=== PATIENT | female | born 1995 | race Caucasian/White ===

== ENCOUNTER 2019-05-10 23:31 | Inpatient (IN) | payer BC, SELFPAY ==
[2019-05-11] VITALS (243 sets, daily range): BP systolic 75–144; BP diastolic 32–117; PULSE 67–171; RESP 14; TEMP 36.1–37.2; O2SAT 92–100; BMI 30.6
[2019-05-11 00:34] LABS: Basophils Percent Auto 0.1 % (0.2-1.2); Eosinophils Percent Auto 0.1 % (0-4.4); Hematocrit 37.8 % (37.0-47.0); Hemoglobin 12.3 g/dL (12.0-15.0); Immature Granulocyte Absolute 0.08 K/mm3 (0.00-0.031); Immature Granulocyte Percent A 0.5 % (0-0.5); Lymphocytes Absolute Auto 1.12 K/mm3 (0.9-3.2); Lymphocytes Percent Auto 7.6 % (18.3-44.2); Mean Corpuscular HGB Conc 32.5 g/dl (32-36); Mean Corpuscular Hemoglobin 27.6 pg (26-34); Mean Corpuscular Volume 84.8 fl (80-100); Mean Platelet Volume 11.2 fl (7.4-10.4); Monocytes Absolute Auto 0.5 K/mm3 (0.1-0.6); Monocytes Percent Auto 3.5 % (2.6-8.5); Neutrophils Percent Auto 88.2 % (45.5-73.1); Platelet Count Result 228 k/mm3 (150-375); Red Blood Count 4.46 M/mm3 (4.2-5.4); Red Cell Distribution Width 17.3 % (11.5-14.5); White Blood Count 14.8 K/mm3 (4.5-10.0)
[2019-05-11] MEDS: LACTATED RINGERS 1,000 ML 125 ML IV CONT ×4 (00:54→07:04)
--- NOTE | 2019-05-11 01:51 | WPDANESEPPF ---
Anes - Initial Pre Proc Eval Date/Time: 05/11/19 01:51 Surgeon: Rosio Edwards MD Pre Op Diagnosis: contractions Patient Data Age: 24 Gender: F Height: 5 ft 2 in Weight: 76 kg Last Vital Signs Pulse 122 H 05/11/19 01:50 BP 96/50 L 05/11/19 01:50 Pulse Ox 98 05/11/19 01:48 Laboratory Tests 05/11/19 05/11/19 05/11/19 00:18 00:18 00:18 WBC 14.8 K/mm3 H K/mm3 (4.5-10.0) RBC 4.46 M/mm3 M/mm3 (4.2-5.4) Hgb 12.3 g/dL g/dL (12.0-15.0) Hct 37.8 % % (37.0-47.0) MCV 84.8 fl fl (80-100) MCH 27.6 pg pg (26-34) MCHC 32.5 g/dl g/dl (32-36) RDW 17.3 % H % (11.5-14.5) Plt Count 228 k/mm3 k/mm3 (150-375) MPV 11.2 fl H fl (7.4-10.4) Immature Gran % (Auto) 0.5 % % (0-0.5) Neut % (Auto) 88.2 % H % (45.5-73.1) Lymph % (Auto) 7.6 % L % (18.3-44.2) [place] % (Auto) 3.5 % % (2.6-8.5) Eos % (Auto) 0.1 % % (0-4.4) Baso % (Auto) 0.1 % L % (0.2-1.2) Lymph # (Auto) 1.12 K/mm3 K/mm3 (0.9-3.2) [place] # (Auto) 0.5 K/mm3 K/mm3 (0.1-0.6) Eos # (Auto) 0.0 K/mm3 K/mm3 (0-0.3) Baso # (Auto) 0.0 K/mm3 K/mm3 (0.0-0.1) Abs Immat Gran (auto) 0.08 K/mm3 H K/mm3 (0.00-0.031) Absolute Neuts (auto) 13.0 K/mm3 H K/mm3 (1.3-6.7) Absolute Nucleated RBC 0.0 K/mm3 K/mm3 (0.0-0.012) Nucleated RBC % 0.0 % % (0.0-0.2) RPR Pending Blood Type A Positive Antibody Screen Negative Patient hx anesthesia problems: none Family hx anesthesia problems: none PMFSH Social History Social History Smoking status: Never smoker Second hand tobacco smoke exposure: No Substance use: current Last use: 05/10/19 Gender identity (if verbalized by the patient): Female Spiritual care concerns: No Anes - Eval Final PreProcedure Day of Procedure 05/11/19 01:51 Patient weight: obese Neurological: alert and oriented ASA classification: II Emergent: no Anesthetic plan: proceed Anesthesia type and monitoring: regional epidural and standard monitoring Informed Consent: The patient's anesthetic plan and its attendant risks and benefits were discussed with the patient/family/POA. Questions were solicited and answers provided to the satisfaction of the patient/family/POA.
[2019-05-11] MEDS: PHENYLEPHRINE 1,000 MCG/10 ML SYRINGE 100 MCG IV PUSH ×2 (02:23→02:31)
[2019-05-11] MEDS: ePHEDrine sulfate INJ 50 MG/ML AMPUL 10 MG IV PUSH (03:09)
[2019-05-11] MEDS: OXYTOCIN 30 UNITS/NS 500 ML 30 UNITS/500 ML BAG IV CONT (03:32)
[2019-05-11] MEDS: ONDANSETRON INJ 4 MG/2 ML VIAL IV PUSH (05:07)
--- NOTE | 2019-05-11 07:06 | PM.IMHP ---
H&P: HPI History of Present Illness Chief complaint: contractions Narrative: Janene Joshua is a 24yo @ 40.3wks who presented overnight with complaints of painful, regular contractions since the prior afternoon every 2-3 minutes. She denied leakage of fluid, bleeding, fever, chills, CP, SOB. She endorsed good movement. Review of Systems Constitutional: Constitutional: Denies body ache(s) and Denies chills Eyes: Eyes: Denies blurry vision ENT: Denies nasal congestion Cardiovascular: Cardiovascular: Denies chest pain and Denies palpitations Respiratory: Respiratory: Denies cough and Denies dyspnea Gastrointestinal: Gastrointestinal: Reports abdominal pain Genitourinary: Genitourinary: Denies dysuria Neurologic: Denies confusion and Denies headache(s) Psychiatric: Psychiatric: Reports anxiety PMFSH Social History Social History Smoking status: Never smoker Second hand tobacco smoke exposure: No Substance use: current Last use: 05/10/19 Gender identity (if verbalized by the patient): Female Spiritual care concerns: No Meds Vital Signs Vital Signs - 24 hr 05/11/19 01:27 05/11/19 01:31 05/11/19 01:32 Temperature Pulse Rate 94 Blood Pressure 128/68 Pulse Oximetry 92 98 05/11/19 01:35 05/11/19 01:37 05/11/19 01:38 Temperature Pulse Rate 88 97 Blood Pressure 122/66 130/84 Pulse Oximetry 99 98 05/11/19 01:40 05/11/19 01:42 05/11/19 01:43 Temperature Pulse Rate 91 106 H Blood Pressure 127/66 118/73 Pulse Oximetry 98 05/11/19 01:45 05/11/19 01:47 05/11/19 01:48 Temperature Pulse Rate 110 H 117 H Blood Pressure 111/65 100/46 L Pulse Oximetry 98 05/11/19 01:50 05/11/19 01:52 05/11/19 01:53 Temperature Pulse Rate 122 H 121 H Blood Pressure 96/50 L 109/60 Pulse Oximetry 98 05/11/19 01:55 05/11/19 01:57 05/11/19 01:58 Temperature Pulse Rate 113 H 101 H Blood Pressure 90/55 L 109/60 Pulse Oximetry 99 05/11/19 02:00 05/11/19 02:02 05/11/19 02:03 Temperature Pulse Rate 101 H 111 H Blood Pressure 108/61 92/45 L Pulse Oximetry 96 05/11/19 02:05 05/11/19 02:07 05/11/19 02:08 Temperature Pulse Rate 97 107 H Blood Pressure 111/65 101/55 L Pulse Oximetry 98 05/11/19 02:10 05/11/19 02:12 05/11/19 02:13 Temperature Pulse Rate 99 106 H Blood Pressure 114/64 116/68 Pulse Oximetry 97 05/11/19 02:15 05/11/19 02:17 05/11/19 02:18 Temperature Pulse Rate 89 109 H Blood Pressure 115/43 L 93/55 L Pulse Oximetry 98 05/11/19 02:20 05/11/19 02:21 05/11/19 02:22 Temperature Pulse Rate 100 99 Blood Pressure 84/34 L 83/32 L Pulse Oximetry 98 05/11/19 02:25 05/11/19 02:27 05/11/19 02:30 Temperature 36.8 C Pulse Rate 67 87 98 Blood Pressure 91/42 L 92/44 L 94/40 L Pulse Oximetry 97 05/11/19 02:32 05/11/19 02:35 05/11/19 02:40 Temperature Pulse Rate 81 Blood Pressure 98/40 L Pulse Oximetry 99 97 98 05/11/19 02:45 05/11/19 02:50 05/11/19 02:55 Temperature Pulse Rate 82 Blood Pressure 92/39 L Pulse Oximetry 99 100 98 05/11/19 03:00 05/11/19 03:05 05/11/19 03:10 Temperature Pulse Rate 89 Blood Pressure 75/36 L Pulse Oximetry 100 100 100 05/11/19 03:15 05/11/19 03:20 05/11/19 03:25 Temperature Pulse Rate Blood Pressure Pulse Oximetry 100 100 100 05/11/19 03:30 05/11/19 03:35 05/11/19 03:40 Temperature Pulse Rate 96 Blood Pressure 95/47 L Pulse Oximetry 98 100 96 05/11/19 03:45 05/11/19 03:50 05/11/19 03:55 Temperature Pulse Rate Blood Pressure Pulse Oximetry 99 98 97 05/11/19 04:00 05/11/19 04:05 05/11/19 04:10 Temperature Pulse Rate 86 Blood Pressure 112/67 Pulse Oximetry 97 98 98 05/11/19 04:15 05/11/19 04:20 05/11/19 04:25 Temperature Pulse Rate Blood Pressure Pulse Oximetry 98 100 100
[2019-05-11 07:27] LABS: Amphetamine Screen Urine Negative (Negative); Barbiturate Screen Urine Negative (Negative); Benzodiazepines Screen Urine Negative (Negative); Cannabinoid Screen Urine Positive (Negative); Cocaine Screen Urine Negative (Negative); Methadone Screen Urine Negative (Negative); Opiate Screen Urine Negative (Negative); Phencyclidine Screen Urine Negative (Negative)
[2019-05-11 07:35] LABS: Rapid Plasma Reagin Non-Reactive (NonReactive)
--- NOTE | 2019-05-11 16:56 | PM.OBPRVD ---
OB - Delivery Note Procedure Delivery date: 05/11/19 Procedure: Janene progressed to complete dilation and pushed for ~2 hours in total due to asynclytism. She was noted to have decels therefore multiple position changes and breaks were performed to allow for tolerance. RML episiotomy was performed due to decels to help allow for faster delivery of the head due to a tight vaginal band. After delivery of the head, a nuchal cord was palpated and reduced. The shoulders and body delivered without complications. She had a male who was immediately placed skin to skin. The infant had immediate cry and was stimulated and suctioned. The cord was clamped and cut. With pitocin running and gentle traction on the cord, the placenta delivered without complications. The fundus was noted to be firm with minimal bleeding. The cervix, vagina, and perineum were examined. She was not tolerating the exam so 100mcg of fenantyl and 10cc of local lidocaine were given. A right sulcal laceration was noted in addition to the right mediolateral episiotomy. It was repaired in the normal fashion using 2-0 Vicryl suture. Good hemostasis was noted and the fundus was firm. Rectal sphincter was intact with good tone. The mother and baby were left bonding skin to skin in a stable condition in the birthing suite. Intrapartal events: Prolonged Active Phase and Intolerance Delivery augmentation: rupture of membranes (thick meconium ) and pitocin Delivery monitor: external FHT and internal uterine Route of delivery: Indication for instrumentation: nonreassuring FHR tracing Episiotomy description: Right Mediolateral Laceration description: Vaginal - 2nd Degree (right sulcal ) Delivery repair: vicryl Estimated blood loss (mL): 400 Anesthesia type: Epidural Disposition: floor Baby Date of : 05/11/19 Time of : 16:33 Weeks of gestation at delivery: 40 Infant gender: Male Weight (pounds): 7 Weight (ounces): 10 presentation: vertex position: Right Occiput Anterior Placenta delivery description: Expressed cord vessel description: 3 Vessels and Nuchal Cord (reduced) score one minute: 8 score five minutes: 9
[2019-05-11] MEDS: OXYTOCIN 30 UNITS/NS 500 ML 30 UNITS/500 ML BAG 125 UNITS IV CONT (17:04)
[2019-05-11] MEDS: IBUPROFEN 600 MG TABLET PO (19:52)
[2019-05-11] MEDS: LANOLIN (LANSINOH) 7.5 GM CREAM 1 APPLIC TOPICAL (19:53)
[2019-05-12 05:42] LABS: Hematocrit 27.6 % (37.0-47.0); Hemoglobin 8.8 g/dL (12.0-15.0)
[2019-05-12 08:05] VITALS: BP 107/66; PULSE 110; RESP 18; TEMP 37.3; O2SAT 98
[2019-05-12] MEDS: POLYSACCHARIDE IRON COMPLEX 150 MG CAPSULE PO ×2 (08:16→17:14)
[2019-05-12] MEDS: IBUPROFEN 600 MG TABLET PO ×2 (08:16→17:18)
[2019-05-12] MEDS: MULTIVIT/MIN/PREN/FOL AC/IRON TABLET 1 TAB PO (08:16)
[2019-05-12] MEDS: DOCUSATE SODIUM 100 MG CAPSULE PO ×2 (08:16→17:14)
--- NOTE | 2019-05-12 08:45 | PC.NURSE ---
Consulted with patient, mother called for assist with latch. Mother is attempting with no successful latch. Mother has been given a nipple shield and is attempting without. Suggested use of shield to obtain deep latch. Discussed nipple shield precautions,possible complications, need to continue pumping to stimulate milk supply. Instructions given on application and cleaning of shield. Patient verbalizes understanding. Reviewed feeding cues, frequencies/durations of feeding, milk production, feeding/elimination flow sheet and signs of adequate intake. Demonstrated stimulation techniques to wake infant for feeding. Assisted with infant to breast. Reviewed positioning/alignment in cross cradle, holding breast in U hold and guided asymmetrical latch on. Discussed rational for each. Infant was able to latch correctly with shield in place. Infant nursed eagerly with steady draws and occasional swallowing , for short bursts followed with long pausing. Reviewed signs of a correct latch, effective nursing and suck swallow ratio. Both are able to maintain latch without discomfort to mother. Advised to stimulate to keep awake and nursing effectively, for increased stimulation and intake. Nipple care reviewed. Instructed mother to call out for RN assistance if she is unable to latch infant for feeding or she has discomfort with nursing. Instructed feeding should be initiated three hours from start of last feeding or if feeding cues are noted before. Mother voiced understanding of information shared.
[2019-05-12] MEDS: ACETAMINOPHEN 325 MG TABLET 650 MG PO (10:54)
--- NOTE | 2019-05-12 12:30 | PC.NURSE ---
Mother called out for assist with feeding. Reviewed positioning/alignment in cross cradle, holding breast in U hold and guided asymmetrical latch on. Discussed rational for each. was able to latch correctly with shield in place. Infant nursed eagerly with steady draws and occasional swallowing , for short bursts followed with long pausing. Reviewed signs of a correct latch, effective nursing and suck swallow ratio. Both are able to maintain latch without discomfort to mother. Advised to stimulate to keep awake and nursing effectively, for increased stimulation and intake. Nipple care reviewed. Instructed mother to call out for RN assistance if she is unable to latch for feeding or she has discomfort with nursing. Instructed feeding should be initiated three hours from start of last feeding or if feeding cues are noted before. Mother voiced understanding of information shared.
--- NOTE | 2019-05-12 13:40 | PC.NURSE ---
Breast pump provided due to nipple shield use/ineffective feeding. Instructions given on breast pump care and usage, pumping schedule, nipple care, and collection and storage of breast milk. Encouraged [id number], breast massage and manual expression to stimulate supply. Assessed patient for correct flange size, placement and draw. Patient verbalizes and demonstrates understanding of instructions.
--- NOTE | 2019-05-12 15:03 | P.PNOB_ITS ---
OB - PN: Subj Subjective Date/time seen: 05/12/19 15:03 Janene is a 24yo now P1001 s/p @ 40.3wks on 05/11/19, PPD#1 Today, she is doing well. She reports her pain is controlled with the medications and ice packs. She is ambulating with mild dizziness. She reports a mild spinal DUNCAN. She is tolerating regular diet w/o N/V. She is voiding and passing flatus. Her lochia is decreasing. She is breast feeding/pumping, some bottle feeding. She desires a circumcision for her son. OB - PN: Obj Data Labs CBC & Chem 7: 05/12/19 05:00 Labs: Laboratory Results - last 24 hr 05/12/19 05:00 Hgb 8.8 L D Hct 27.6 L OB - PN A/P Assessment and Plan (1) Normal vaginal delivery: Code(s): O80 - Encounter for full-term uncomplicated delivery Status: Acute (2) Acute postoperative anemia due to expected blood loss: Code(s): D62 - Acute posthemorrhagic anemia Status: Acute Plan day: 1 Plan: routine care and discharge home (tomorrow on PPD#2) Comments: - Meeting all milestones, discharge home tomorrow. - Iron BID due to anemia - Will start Zoloft for h/o depression and anxiety (has med at home but hadn't started taking it yet) - Anesthesia consult for DUNCAN; encouraged increased caffeine intake - S/p circumcision for son - Discharge counseling: ER return precautions discussed with patient. Take medications as prescribed. Pelvic rest, no heavy lifting. Social distancing for herself and baby. F/u in clinic in 4 weeks. Time Spent With Patient Time: Total time spent is greater than 50% in coordination of care (as documented) at patient's floor/unit and/or counseling patient: Review of Systems Constitutional: Constitutional: Denies body ache(s) and Denies chills Cardiovascular: Cardiovascular: Denies rapid heart rate Respiratory: Respiratory: Denies no additional respiratory complaints, Denies cough and Denies dyspnea Gastrointestinal: Gastrointestinal: Denies constipation, Denies nausea and Denies vomiting Genitourinary: Genitourinary: Reports pelvic pain Neurologic: Reports headache(s) Exam Const: General: comfortable, no acute distress, alert and awake Resp: Effort & Inspection: normal respiratory effort Auscultation: clear to auscultation bilaterally Cardio: Rate: regular rate GI: Auscultation: normal bowel sounds Other: soft, non-distended, non- tender, fundus firm below umbilicus Psych: Appearance: grossly normal Affect: Indifferent affect present Attitude: cooperative Judgement: Good judgement present (Psych)
[2019-05-12] MEDS: SERTRALINE HCL 50 MG TABLET PO (17:15)
[2019-05-12 19:40] VITALS: BP 109/70; PULSE 95; RESP 14; TEMP 36.8; O2SAT 100
--- NOTE | 2019-05-12 21:32 | PC.NURSE ---
Patient viewed the discharge video Mother & Baby Care, The First Two Weeks . Patient was given the opportunity and encouraged to ask questions. Patient verbalized understanding of information shared and has been given the mother/baby guide for home reference.
[2019-05-13 08:00] VITALS: BP 108/67; PULSE 98; RESP 16; TEMP 37.7; O2SAT 99
[2019-05-13] MEDS: POLYSACCHARIDE IRON COMPLEX 150 MG CAPSULE PO (08:31)
[2019-05-13] MEDS: IBUPROFEN 600 MG TABLET PO (08:31)
[2019-05-13] MEDS: WITCH HAZEL 40 PADS 1 PAD TOPICAL (08:32)
[2019-05-13] MEDS: DOCUSATE SODIUM 100 MG CAPSULE PO (08:32)
[2019-05-13] MEDS: MULTIVIT/MIN/PREN/FOL AC/IRON TABLET 1 TAB PO (08:32)
--- NOTE | 2019-05-13 09:45 | PC.NURSE ---
Mother is able to independently latch infant with appropriate positioning/alignment, using nipple shield. She denies any nipple discomfort, is feeding as required and waking infant to feed if needed. Mother continues to supplement after all feedings due to feeding issues. Mother continues to pump without difficulties or discomfort, she has a pump for home use. Infant is bottle feeding without issue and has had at least 8 feedings in the past 24 hours, and is currently meeting outcomes for weight, output, jaundice and feeding frequencies. Mother states she feels confident to continue current feeding plan at home. Discussed how and when to wean from bottle feeding. Reviewed transition to breast milk, signs of adequate intake, and engorgement/relief. Instructed to call ICP if intake/output less than required. Reviewed regular medications mother is taking. Information provided per Gracia. Reviewed community resources on the [facility] website and in the Mom/Baby guide. Information on outpatient services provided. Mother has no further questions at this time.
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
--- NOTE | 2019-05-31 07:27 | PM.OBDSVD ---
DS: Diagnosis Admitting Diagnosis Admitting Diagnosis: Encounter for supervision of normal , unspecified, third trimester Discharge Diagnosis (1) Uterine contractions during : Code(s): O62.2 - Other uterine inertia Status: Acute OB - DS: Summary OB Procedures : None OB Procedures Intrapartum: Episiotomy OB Procedures: : None Peripartum Data Delivery Method: Natural Vaginal Laceration description: Perineal - 2nd Degree Episiotomy description: Right Mediolateral complications: none 1: Gender: Male Disposition of : home Status at Discharge Functional status at discharge: independent ambulation Overall status at discharge: patient is back to baseline Time Spent with Patient Time attestation: Total time spent providing and/or coordinating discharge services: Exam Const: General: comfortable and no acute distress Resp: Effort & Inspection: normal respiratory effort Cardio: Rate: regular rate GI: GI Palp: Yes Soft to palpation Auscultation: normal bowel sounds : Other: fundus firm below umbilicus Psych: Appearance: grossly normal Attitude: cooperative Thought content: Yes Normal thought content present DS: Data Data Completed and Pending Completed studies during hospitalization: Pending at discharge 05/11/19 16:35 Surgical [PTH] Routine Discharge Plan Discharge Attending physician on discharge: Rosio Edwards Consulting providers: Will Tirado Discharging Clinician: Rosio Edwards Anticipated Discharge Date/Time: 05/13/19 13:00 Patient Disposition: Home, Self-Care Activity: pelvic rest Diet: regular Discharge Instructions: Education: Mom and Baby Guide Given to: Mother Follow-Up: Call your delivering provider's office for an appointment to be seen in: 6 Weeks Mom and baby should come to the [facility] for the follow-up appointment. Appointment Date/Time: May 16, 2019 at 11:00 am What to expect at your follow-up visit: Physical Assessment Call [phone] if you are unable to keep your appointment time. BREAST CARE: 1. Wear a snug supportive bra. 2. For engorgement discomfort: Breast Feeding: A. Apply warm moist washcloths B. Express milk as needed to relieve engorgement C. Wear loose clothing 3. For sore nipples: A. Identify correct latch-on B. Apply warm moist washcloths before and after nursing C. Air dry nipples after nursing D. May apply Lansinoh cream to nipples EPISIOTOMY/PERINEAL CARE: 1. Until bleeding stops, use your renée bottle after urinating 2. Change your pad frequently throughout the day 3. You may take sitz baths several times a day (fill your bathtub with warm water and soak for 20 minutes.) Do NOT bathe in the water 4. No tub baths until seen by your physician - You may shower ACTIVITY: 1. Rest as much as possible. 2. Do not exercise or lift anything heavier than your baby (such as laundry or other children.) 3. Avoid stairs or driving as much as possible. 4. Do not put anything into the vagina. No douching, tampons, or sexual activity until seen by physician. NOTIFY PHYSICIAN IF YOU HAVE ANY QUESTIONS OR IF ANY OF THE FOLLOWING SYMPTOMS OCCUR: 1. If your episiotomy or incision becomes red, swollen, or more painful than what you have experienced in the hospital. 2. If your vaginal bleeding becomes foul smelling. 3. If your vaginal bleeding becomes more heavy than a period or if your bleeding changes from pink to bright red. However, you may pass an occasional walnut-sized clot once or twice for the first week . 4. If you experience a sharp, shooting pain in you calves. 5. If you discover a hard, reddened area on your breast or if you experience flu-like symptoms. DIET: 1. Eat regular, well-balanced meals. 2. Drink plen
== END 2019-05-13 15:22 | disposition home or self-care (01) | DRG 560 ==
LOC: ANHLDR 23:59 → ANHOB2 05-11 20:03
PROVIDERS: Admitting Provider Obstetrics & Gynecology; Visit Provider Obstetrics & Gynecology
DX: O62.2 Other uterine inertia (principal); Z37.0 Single live birth; Z3A.40 40 weeks gestation of pregnancy; O69.81X0 Labor and delivery complicated by cord around neck, without compression, not applicable or unspecified; O36.8330 Maternal care for abnormalities of the fetal heart rate or rhythm, third trimester, not applicable or unspecified; O63.0 Prolonged first stage (of labor); O77.0 Labor and delivery complicated by meconium in amniotic fluid; O70.1 Second degree perineal laceration during delivery; O89.4 Spinal and epidural anesthesia-induced headache during the puerperium; O90.81 Anemia of the puerperium; D62 Acute posthemorrhagic anemia; O99.344 Other mental disorders complicating childbirth; F41.8 Other specified anxiety disorders; O99.214 Obesity complicating childbirth; E66.9 Obesity, unspecified
CPT/HCPCS: 36415; 80307; 85014; 85018; 85025; 86592; 86850; 86900; 86901; 88307; A9270; J2370; J2405; J2590; J2795; J3010; J3105; J7120

== ENCOUNTER 2020-06-20 12:15 | Outpatient (CLI) | payer BC, SELFPAY ==
[2020-06-20 12:34] VITALS: BP 132/74; PULSE 100
[2020-06-20 13:00] VITALS: BP 122/76; PULSE 99
[2020-06-20 13:05] LABS: Add Urine Microscopic? YES; Appearance Urine Cloudy (Clear); Bacteria Urine Trace /hpf; Bilirubin Urine Negative (Negative); Blood Urine Negative (Negative); Color Urine Yellow (Yellow); Glucose Urine UA Negative (Negative); Ketones Urine Trace mg/dL (Negative); Leukocyte Esterase Ur 3+ LEU/UL (Negative); Mucus Urine Few /lpf; Nitrate Urine Negative (Negative); Protein Urine 1+ mg/dL (Negative); Specific Grav Ur 1.018 (1.001-1.035); Squamous Epithelial Cell Urine Many /hpf (Few); Urobilinogen Urine Negative mg/dL (<2.0); WBC Urine 21-30 /hpf
[2020-06-20 13:25] VITALS: BP 122/76; PULSE 99
== END 2020-06-20 13:30 | disposition home or self-care (01) ==
LOC: ANHOBOP 12:19 → ANHOBPP 12:20
PROVIDERS: Visit Provider Obstetrics & Gynecology
DX: O41.93X0 Disorder of amniotic fluid and membranes, unspecified, third trimester, not applicable or unspecified (principal); Z3A.35 35 weeks gestation of pregnancy
CPT/HCPCS: 59025; 81001; 84112; 87086; 87088; 99199

== ENCOUNTER 2020-07-24 05:46 | Inpatient (IN) | payer BC, SELFPAY ==
[2020-07-24] VITALS (63 sets, daily range): BP systolic 86–139; BP diastolic 25–93; PULSE 60–121; RESP 16–20; TEMP 36.4–36.9; O2SAT 97–100; BMI 33.5
--- NOTE | 2020-07-24 05:46 | LDADM ---
This patient, Janene Joshua, was admitted to Labor/Delivery/Recovery 102 on 07/24/20 at 05:46. Plans for labor, pain management and were discussed with patient. Patient/family oriented to hospital policies and general routines including ID bracelet, bed and alarms, visiting hours, pain management, procedures, bathroom and other care routines, personal items, smoking policy, room service/diet and guest tray routines, security routines, and visiting hours. Patient/Family are encouraged to report perceived risks to care and to ask questions if they do not understand what they are told or what they should do. See OBIX for further documentation.
[2020-07-24 06:38] LABS: Basophils Percent Auto 0.2 % (0.2-1.2); Eosinophils Absolute Auto 0.1 K/mm3 (0-0.3); Eosinophils Percent Auto 0.5 % (0-4.4); Hematocrit 41.8 % (37.0-47.0); Hemoglobin 13.2 g/dL (12.0-15.0); Immature Granulocyte Absolute 0.04 K/mm3 (0.00-0.031); Immature Granulocyte Percent A 0.4 % (0-0.5); Lymphocytes Absolute Auto 1.62 K/mm3 (0.9-3.2); Lymphocytes Percent Auto 16.7 % (18.3-44.2); Mean Corpuscular HGB Conc 31.6 g/dl (32-36); Mean Corpuscular Hemoglobin 25.9 pg (26-34); Mean Corpuscular Volume 82.1 fl (80-100); Mean Platelet Volume 11.2 fl (7.4-10.4); Monocytes Absolute Auto 0.6 K/mm3 (0.1-0.6); Monocytes Percent Auto 5.7 % (2.6-8.5); Neutrophils Absolute Auto 7.4 K/mm3 (1.3-6.7); Neutrophils Percent Auto 76.5 % (45.5-73.1); Platelet Count Result 204 k/mm3 (150-375); Red Blood Count 5.09 M/mm3 (4.2-5.4); Red Cell Distribution Width 20.8 % (11.5-14.5); White Blood Count 9.7 K/mm3 (4.5-10.0)
[2020-07-24 06:54] LABS: Amphetamine Screen Urine Negative (Negative); Barbiturate Screen Urine Negative (Negative); Benzodiazepines Screen Urine Negative (Negative); Cannabinoid Screen Urine Positive (Negative); Cocaine Screen Urine Negative (Negative); Methadone Screen Urine Negative (Negative); Opiate Screen Urine Negative (Negative); Phencyclidine Screen Urine Negative (Negative)
[2020-07-24] MEDS: LACTATED RINGERS 1,000 ML 125 ML IV CONT ×2 (06:54→07:38)
[2020-07-24] MEDS: OXYTOCIN 30 UNITS/NS 500 ML 30 UNITS/500 ML BAG IV CONT (06:54)
--- NOTE | 2020-07-24 07:30 | PM.IMHP ---
H&P: HPI History of Present Illness Date/Time: 07/24/20 07:11 Janene is a 25yo @ 40.0wks (AZEB 07/24/20) who presents for IOL. She reports good movement. She is having irregular contractions. She denies VB or LOF. She has had regular care with [facility]. Her is complicated by: - Short interval ; last delivery 05/11/19 - Anxiety and depression on zoloft 50mg daily - Marijuana use - Varicella, rubella, and CMV non-immune - Chlamydia s/p treatment and neg KELLY - Elevated glucola, normal 3hr OGTT Chief Complaint: induction of labor Review of Systems Review of Systems: All systems reviewed & are unremarkable except as noted in HPI and below (HPI) [facility] Family History Family History Mother History of blood clots Social History Social History Smoking status: Never smoker Second hand tobacco smoke exposure: No Substance use: current Last use: 07/23/20 Gender identity (if verbalized by the patient): Female Sexual Orientation (if Verbalized by the Patient): Straight or Heterosexual Spiritual care concerns: No Meds Home Medications and Allergies Home Medications Medication Instructions Recorded Confirmed Type prenat.vits,kristen,zel-[id number] 1 tab PO DAILY 30 Days #30 tablet 05/12/19 07/24/20 Rx [[facility]] sertraline [Zoloft] 50 mg PO DAILY 30 Days #30 tablet 05/12/19 07/24/20 Rx Allergies Allergy/AdvReac Type Severity Reaction Status Date / Time No Known Allergies Allergy Verified 05/11/19 18:15 Vital Signs Vital Signs - 24 hr 07/24/20 06:23 07/24/20 06:30 07/24/20 06:45 Temperature 36.9 C Pulse Rate 121 H 87 90 Blood Pressure 121/82 130/88 120/93 H 07/24/20 07:00 Temperature Pulse Rate 94 Blood Pressure 125/85 Exam Const: General: cooperative, healthy appearing, comfortable and no acute distress Resp: Effort & Inspection: normal respiratory effort and able to speak in complete sentences Cardio: Rate: regular rate GI: Inspection: normal to inspection and non-distended GI Palp: No abdominal tenderness and Yes Soft to palpation : Other: FHT's: 130's/ mod patrice/ + accels/ no decels - cat 1 TOCO: ctx's q4-5min Cervix: 4/70/-2 Membranes: AROM, thin mec 0725 Presentation: cephalic pit: 2mu Skin: General skin exam: normal color Neuro: General: patient oriented x3 Extrem: General: normal to inspection Psych: Appearance: grossly normal Affect: normal affect Attitude: cooperative H&P: Results Labs Labs: Short CBC 07/24/20 Range/Units 06:18 WBC 9.7 (4.5-10.0) K/mm3 Hgb 13.2 D (12.0-15.0) g/dL Hct 41.8 (37.0-47.0) % Plt Count 204 (150-375) k/mm3 Assessment and Plan Assessment and plan (1) : Qualifiers: Weeks of gestation: 40 weeks Qualified Code(s): Z3A.40 - 40 weeks gestation of Code(s): Z34.90 - Encounter for supervision of normal , unspecified, unspecified trimester Status: Acute (2) Encounter for elective induction of labor: Code(s): Z34.90 - Encounter for supervision of normal , unspecified, unspecified trimester Status: Acute Additional Plan - Admitted to L&D for IOL - Pitocin per protocol - Continuous monitoring; currently reassuring - GBS negative - Anesthesia consult PRN pain
--- NOTE | 2020-07-24 07:30 | WPDHPUPDATE1 ---
History and Physical Update Update Date/Time: 07/24/20 07:30 History and Physical has been reviewed, including an updated exam of the patient. There are NO changes in the patient's condition. Risks, benefits, and alternatives have been discussed and questions answered. Patient agrees to proceed with procedure.
[2020-07-24] MEDS: ONDANSETRON INJ 4 MG/2 ML VIAL IV PUSH ×2 (09:09→13:40)
--- NOTE | 2020-07-24 11:56 | PM.OBPRVD ---
OB - Delivery Note Procedure Delivery date: 07/24/20 events: Labor Augmentation and Meconium Stained Fluid Intrapartal events: Precipitous Labor < 3 hours and Deceleration Induction method: per pitocin protocol Delivery augmentation: rupture of membranes Delivery monitor: external FHT and external uterine Route of delivery: Laceration Description: Perineal - 2nd Degree Delivery repair: vicryl Quantitative Blood Loss (ml): 200 Anesthesia type: Epidural Disposition: floor Baby Date of : 07/24/20 Time of : 11:37 Weeks of gestation at delivery: 40 gender: Female Weight (pounds): 7 Weight (ounces): 9 presentation: vertex position: Right Occiput Anterior Placenta delivery description: Expressed cord vessel description: 3 Vessels, Nuchal Cord and Loose score one minute: 6 score five minutes: 9 Narrative: After epidural placement, variable decelerations were noted. She then endorsed significant vaginal pressure with desire to push. She was found to be completely dilated at 0 station. She pushed for approximately 10 minutes and delivered the head over intact perineum. Nuchal cord was palpated but loose and delivered through. She delivered the shoulders and body without complications. The infant was immediately placed skin to skin. The umbilical cord was clamped and cut and the awaiting pediatric team evaluated the infant in the warmer. With stimulation and suction cry was heard. A segment of the cord was collected for cord gases. The remaining umbilical cord blood was collected for typing. With Pitocin running and gentle downward traction on the umbilical cord, the placenta delivered without complications. Minimal bleeding and good fundal tone was noted. The patient was examined and a small second-degree perineal laceration was noted. The second-degree laceration was repaired in the normal fashion using 2 0 Vicryl. Minimal bleeding was noted. Good uterine tone was noted. Sponge, lap, instrument, and needle counts were correct at the end of the procedure. Mom and baby were left bonding in the birthing suite in stable condition.
[2020-07-24] MEDS: OXYTOCIN 30 UNITS/NS 500 ML 30 UNITS/500 ML BAG 125 UNITS IV CONT (12:11)
[2020-07-24 13:17] LABS: Rapid Plasma Reagin Non-Reactive (NonReactive)
[2020-07-24] MEDS: WITCH HAZEL 40 PADS 1 PAD TOPICAL (13:43)
[2020-07-24] MEDS: BENZOCAINE 20% AER SPR (*SP) 56 GM CAN 1 SPRAY TOPICAL (13:43)
--- NOTE | 2020-07-24 14:44 | PCCCNOTE ---
Care Coordination. Patient referred to Care Coordination for pt. having positive UDS for marijuana. Mother denies any other substance abuse. Infant UDS and meconium results pending. Met with mother and FOB, Antonio Antony, at bedside. Pt. plans to return home with her 14 month old, new baby, and FOB. She reports having all necessary baby care items and is setup with [facility] in [place]. She denied need for community resources or marijuana abuse. She reports only using it periodically and that it helps with her anxiety. She denies counseling or resource information needed for anxiety/depression history. Gave pt. a list of clinics as she reports needing to find a PCP. Spoke with Yoselin Cardoso at [facility] hotline and she will take pt.'s situation as information only (Intake ID#[id number]). [facility] worker reports can reach out to family about CWS referral, but no report taken. She reports if infant positive for marijuana no need to call back as no report will be considered unless experiencing withdrawals.
--- NOTE | 2020-07-24 14:47 | PC.NURSE ---
Patient transferred to post room # 280 per wheelchair. Support person present. Oriented to unit, room, information board, rooming in, admission packet and security measures. Patient verbalizes understanding.
[2020-07-24] MEDS: IBUPROFEN 600 MG TABLET PO (16:14)
[2020-07-24] MEDS: DOCUSATE SODIUM 100 MG CAPSULE PO (16:14)
[2020-07-25 04:30] VITALS: BP 113/58; PULSE 66; RESP 16; TEMP 36.7
[2020-07-25 04:45] LABS: Hematocrit 30.8 % (37.0-47.0); Hemoglobin 9.9 g/dL (12.0-15.0)
[2020-07-25] MEDS: SERTRALINE HCL 50 MG TABLET PO (07:29)
[2020-07-25] MEDS: DOCUSATE SODIUM 100 MG CAPSULE PO ×2 (07:29→16:20)
[2020-07-25] MEDS: WITCH HAZEL 40 PADS 1 PAD TOPICAL (07:31)
[2020-07-25] MEDS: IBUPROFEN 600 MG TABLET PO ×2 (07:31→16:20)
[2020-07-25] MEDS: POLYSACCHARIDE IRON COMPLEX 150 MG CAPSULE PO ×2 (07:31→16:21)
[2020-07-25] MEDS: BENZOCAINE 20% AER SPR (*SP) 56 GM CAN 1 SPRAY TOPICAL (07:31)
--- NOTE | 2020-07-25 07:54 | WPDANLDPN2 ---
Anes-Prog Note L&D Date/Time: 07/25/20 07:54 Comfortable throughout: labor and delivery Neuraxial method: epidural Epidural/Spinal procedure site: clean & non-tender Neuro status: Neuro function grossly intact. Cardiovascular status: normal Respiratory status: normal Airway patency: baseline Mental status: baseline Post-Op hydration status: normal Vital Signs: Last Vital Signs Temp 36.7 C 07/25/20 04:30 Pulse 66 07/25/20 04:30 Resp 16 07/25/20 04:30 BP 113/58 L 07/25/20 04:30 Pulse Ox 99 07/24/20 15:00 Pain score (VAS): 0 I/O: Intake & Output 07/24/20 07/24/20 07/25/20 15:59 23:59 07:59 Intake Total 1500 Output Total 293 Balance 1207 Post-procedural complaints: none Patient feedback: Patient satisfied with anesthetic care.
[2020-07-25 08:00] VITALS: BP 90/56; PULSE 77; RESP 16; TEMP 36.4
[2020-07-25 12:30] VITALS: BP 90/56; PULSE 77; RESP 16; TEMP 36.4; O2SAT 99
--- NOTE | 2020-07-25 12:53 | PM.OBPNVD ---
OB - PN: Subj Subjective Date/time seen: 07/25/20 12:53 PPD#1 Janene reports doing well today. She reports her pain is controlled, her bleeding is light. She has tolerated regular diet. She has voided and passed gas. Ambulated and already showered; denies symptoms of anemia. She is bottle feeding. her daugher is being evaluated for a murmur. She denies CP, SOB, fever, chills, N/V, headaches, dizziness or palpations. She would like to go home tomorrow. OB - PN: Obj Data Labs CBC & Chem 7: 07/25/20 04:36 Labs: Laboratory Results - last 24 hr 07/24/20 07/25/20 06:17 04:36 Hgb 9.9 L D Hct 30.8 L RPR Non-reactive OB - PN A/P Assessment and Plan (1) Status post vaginal delivery: Status: Acute Plan day: 1 Plan: routine care and discharge home (tomorrow) Comments: - F/u in clinic if 4 wks; call if issues arise - Continue zoloft for anxiety and depression - ER return precautions discussed: fever, bleeding, htn, abd/n/v Time Spent With Patient Time: Total time spent is greater than 50% in coordination of care (as documented) at patient's floor/unit and/or counseling patient: Review of Systems Review of Systems: All systems reviewed & are unremarkable except as noted in HPI and below (HPI) Exam Const: General: cooperative, healthy appearing, comfortable and no acute distress Resp: Effort & Inspection: normal respiratory effort and able to speak in complete sentences Auscultation: clear to auscultation bilaterally Cardio: Rate: regular rate GI: Inspection: normal to inspection and non-distended GI Palp: No abdominal tenderness and Yes Soft to palpation Auscultation: normal bowel sounds : Other: fundus firm at umbilicus Skin: General skin exam: normal color Neuro: General: patient oriented x3 Extrem: General: normal to inspection Psych: Appearance: grossly normal Affect: normal affect Attitude: cooperative
[2020-07-25 20:00] VITALS: BP 117/69; PULSE 77; RESP 16; TEMP 36.8; O2SAT 99
[2020-07-26] MEDS: TETANUS,DIPHTHERIA,AC PERTUSSIS ADULT (0.5 ML) BOOSTRIX IM (05:21)
[2020-07-26] MEDS: IBUPROFEN 600 MG TABLET PO (05:33)
[2020-07-26 07:35] VITALS: BP 113/74; PULSE 78; RESP 16; TEMP 37.2; O2SAT 99
[2020-07-26] MEDS: MEASLES,MUMPS,RUBELLA VACCINE 0.5 ML VIAL SUB-Q (08:55)
[2020-07-26] MEDS: POLYSACCHARIDE IRON COMPLEX 150 MG CAPSULE PO (08:57)
[2020-07-26] MEDS: SERTRALINE HCL 50 MG TABLET PO (08:57)
--- NOTE | 2020-08-05 07:20 | PM.OBDSVD ---
DS: Admitting Diagnosis Admitting Diagnosis Admitting Diagnosis: induction of labor DS: Discharge Diagnosis Discharge Diagnosis (1) Status post vaginal delivery: Status: Acute OB - DS: Summary OB Procedures : Ultrasound OB Procedures Intrapartum: Spontaneous Vag Delivery OB Procedures: : None Peripartum Data Delivery Method: Natural Vaginal Laceration Description: Perineal - 2nd Degree complications: none 1: Gender: Female Disposition of : home Status at Discharge Functional status at discharge: independent ambulation Overall status at discharge: patient is back to baseline Time Spent with Patient Time attestation: Total time spent providing and/or coordinating discharge services: Exam Const: General: cooperative, healthy appearing, comfortable and no acute distress Resp: Effort & Inspection: normal respiratory effort and able to speak in complete sentences Auscultation: clear to auscultation bilaterally Cardio: Rate: regular rate GI: Inspection: non-distended GI Palp: No abdominal tenderness and Yes Soft to palpation Auscultation: normal bowel sounds : Other: fundus firm Skin: General skin exam: normal color Neuro: General: patient oriented x3 Extrem: General: normal to inspection Psych: Appearance: grossly normal Affect: normal affect Attitude: cooperative DS: Data Data Completed and Pending Completed studies during hospitalization: Pending at discharge 07/24/20 11:40 Surgical [PTH] Routine Discharge Plan Discharge Attending physician on discharge: Rosio Edwards Consulting providers: Topher Lou Discharging Clinician: Rosio Edwards Anticipated Discharge Date/Time: 07/26/20 12:00 Patient Disposition: Home, Self-Care Activity: pelvic rest Diet: regular Discharge Instructions: Education: Mom and Baby Guide Given to: Mother Follow-Up: Call your delivering provider's office for an appointment to be seen in: 4 Weeks Mom and baby should come to the [facility] for the follow-up appointment. Appointment Date/Time: July 27, 2020 at 1:30 pm What to expect at your follow-up visit: Physical Assessment Call [phone] if you are unable to keep your appointment time. BREAST CARE: * Wear a snug supportive bra. * For engorgement discomfort: Bottle Feeding: * May apply ice packs EPISIOTOMY/PERINEAL CARE: * Until bleeding stops, use your renée bottle after urinating * Change your pad frequently throughout the day * You may take sitz baths several times a day (fill your bathtub with warm water and soak for 20 minutes.) Do NOT bathe in the water * No tub baths until seen by your physician - You may shower ACTIVITY: * Rest as much as possible. * Do not exercise or lift anything heavier than your baby (such as laundry or other children.) * Avoid stairs or driving as much as possible. * Do not put anything into the vagina. No douching, tampons, or sexual activity until seen by physician. NOTIFY PHYSICIAN IF YOU HAVE ANY QUESTIONS OR IF ANY OF THE FOLLOWING SYMPTOMS OCCUR: * If your episiotomy or incision becomes red, swollen, or more painful than what you have experienced in the hospital. * If your vaginal bleeding becomes foul smelling. * If your vaginal bleeding becomes more heavy than a period or if your bleeding changes from pink to bright red. However, you may pass an occasional walnut-sized clot once or twice for the first week . * If you experience a sharp, shooting pain in you calves. * If you discover a hard, reddened area on your breast or if you experience flu-like symptoms. DIET: * Eat regular, well-balanced meals. * Drink plenty of fluids daily. If , drink to thirst. Patient Instructions: Antibiotic Form Stand Alone Forms: General Discharge Information Follow-up/Referrals: Rosio Edwards
== END 2020-07-26 12:30 | disposition home or self-care (01) | DRG 560 ==
LOC: ANHLDR 05:53 → ANHOB2 14:58
PROVIDERS: Admitting Provider Obstetrics & Gynecology; Visit Provider Obstetrics & Gynecology
DX: O62.3 Precipitate labor (principal); Z37.0 Single live birth; Z3A.40 40 weeks gestation of pregnancy; O77.0 Labor and delivery complicated by meconium in amniotic fluid; O69.81X0 Labor and delivery complicated by cord around neck, without compression, not applicable or unspecified; O70.1 Second degree perineal laceration during delivery; O36.8330 Maternal care for abnormalities of the fetal heart rate or rhythm, third trimester, not applicable or unspecified; O99.344 Other mental disorders complicating childbirth; F41.9 Anxiety disorder, unspecified; F32.9 Major depressive disorder, single episode, unspecified; O99.324 Drug use complicating childbirth; F12.90 Cannabis use, unspecified, uncomplicated
CPT/HCPCS: 36415; 80307; 85014; 85018; 85025; 86592; 86850; 86900; 86901; 88307; 90710; 90715; A9270; J2405; J2590; J2795; J7120

== ENCOUNTER 2023-06-27 16:34 | Emergency (ER) | payer OTHER, SELFPAY ==
--- NOTE | ~2023-06-27 | US_ITS ---
EXAMINATION: US OB <=14 wk fetus w TV INDICATION: r/o ectopic TECHNIQUE: Sonography of the pelvis was performed by transabdominal and transvaginal techniques. COMPARISON: None. RESULT: Uterus: 8.8 x 5.3 x 5.2 cm. Anteverted. Homogenous myometrium. Intrauterine gestational sac: Single present. Mean Sac Diameter: 0.7 cm, corresponding gestational age 5 week 3 days. Yolk sac: Not visualized. Embryo: Not seen. Subgestational hematoma: Absent . Right ovary: 3.6 x 3.1 x 2.9 cm. Vascular flow is present. 2.5 cm simple ovarian cyst. Left ovary: 2.6 x 2.4 x 2.1 cm. Vascular flow is present. No adnexal mass. Pelvis free fluid: Trace fluid in the cul-de-sac IMPRESSION: Intrauterine of uncertain viability. No pole or yolk sac identified, possibly seconda ry to early gestational age. Consider serial beta-hCG monitoring and follow-up OB ultrasound as clini mara indicated. Estimated Gestational Age: 5 weeks, 3 days by mean gestational sac diameter. AZEB by ultrasound 2024. Reviewed, dictated and finalized at location K. IMPRESSION: Intrauterine of uncertain viability. No pole or yolk sac identi fied, possibly secondary to early gestational age. Consider serial beta-hCG mon itoring and follow-up OB ultrasound as clinically indicated. Estimated Gestational Age: 5 weeks, 3 days by mean gestational sac diameter. E DD by ultrasound 02/24/2024.
[2023-06-27 16:36] VITALS: BP 127/81; PULSE 86; RESP 18; TEMP 36.6; O2SAT 99
[2023-06-27 17:03] LABS: Basophils Percent Auto 0.1 % (0.2-1.2); Eosinophils Absolute Auto 0.1 K/mm3 (0-0.3); Eosinophils Percent Auto 0.8 % (0-4.4); Hematocrit 36.7 % (37.0-47.0); Immature Granulocyte Absolute 0.02 K/mm3 (0.00-0.031); Immature Granulocyte Percent A 0.2 % (0-0.5); Lymphocytes Absolute Auto 1.84 K/mm3 (0.9-3.2); Lymphocytes Percent Auto 21.4 % (18.3-44.2); Mean Corpuscular HGB Conc 32.7 g/dl (32-36); Mean Corpuscular Hemoglobin 27.9 pg (26-34); Mean Corpuscular Volume 85.3 fl (80-100); Mean Platelet Volume 10.8 fl (7.4-10.4); Monocytes Absolute Auto 0.3 K/mm3 (0.1-0.6); Neutrophils Absolute Auto 6.3 K/mm3 (1.3-6.7); Neutrophils Percent Auto 73.5 % (45.5-73.1); Platelet Count Result 204 k/mm3 (150-375); Red Cell Distribution Width 13.4 % (11.5-14.5); White Blood Count 8.6 K/mm3 (4.5-10.0)
[2023-06-27 17:11] VITALS: BP 120/60; PULSE 94
[2023-06-27 17:11] LABS: Alanine Aminotransferase 16 U/L (6-35); Albumin Level 4.8 g/dL (3.5-5.1); Alkaline Phosphatase 60 U/L (38-126); Anion Gap 9 mmol/L (4-12); Aspartate Amino Transferase 17 U/L (14-36); Bilirubin,Total 0.6 mg/dL (0.2-1.3); Blood Urea Nitrogen 10 mg/dL (7-17); Calcium 9.4 mg/dL (8.4-10.2); Carbon Dioxide 22 mmol/L (22-30); Chloride 107 mmol/L (98-107); Estimated CRCL calculation 135 ml/min; Estimated Glomerular Filt Rate > 60; Glucose 105 mg/dL (65-110); Potassium 3.6 mmol/L (3.4-5.0); Sodium 138 mmol/L (137-145)
[2023-06-27 17:12] VITALS: BP 125/76; PULSE 88
[2023-06-27 17:14] VITALS: BP 126/81; PULSE 90
[2023-06-27 17:15] LABS: Prothrombin Time 13.8 Seconds (11.1-14.7)
--- NOTE | 2023-06-27 17:15 | ED.PREGNANCY ---
HPI - General Chief complaint: Vaginal Bleeding <SHAYLEE Ordonez Last Filed: 06/28/23 22:05> Stated complaint: vag bleed, 5 weeks <SHAYLEE Ordonez Last Filed: 06/28/23 22:05> Time Seen by Provider: 06/27/23 16:39 <SHAYLEE Ordonez Last Filed: 06/28/23 22:05> Source: patient <SHAYLEE Ordonez Last Filed: 06/28/23 22:05> Mode of arrival: ambulatory <SHAYLEE Ordonez Last Filed: 06/28/23 22:05> Limitations: no limitations <SHAYLEE Ordonez Last Filed: 06/28/23 22:05> History of Present Illness HPI Narrative: This is a 28-year-old female, about 6 weeks by LMP, that presents to the emergency department for vaginal bleeding. Reports over the last several hours she has had bright red blood that she noted when she wipes and in the toilet. She also has some cramping, that is a little bit worse on the left side. 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 She additionally endorses some dysuria. Denies fevers or vomiting. <SHAYLEE Ordonez Last Filed: 06/28/23 22:05> Related Data Home medications: Home Medications Medication Instructions Recorded Confirmed phentermine 37.5 mg tablet 37.5 mg PO 04/07/23 04/07/23 <SHAYLEE Ordonez Last Filed: 06/28/23 22:05> Allergies/Adverse reactions: Allergies Allergy/AdvReac Type Severity Reaction Status Date / Time No Known Allergies Allergy Verified 06/27/23 16:46 <SHAYLEE Ordonez Last Filed: 06/28/23 22:05> Review of Systems Review of Systems: CONSTITUTIONAL: Denies fever GASTROINTESTINAL: Reports abdominal pain. Denies nausea, vomiting GENITOURINARY: Reports dysuria <SHAYLEE Ordonez Last Filed: 06/28/23 22:05> All systems reviewed & are unremarkable except as noted in HPI and below <Michelle Alvarado PA-C - Last Filed: 06/28/23 22:05> [facility] Past Medical History Medical History: Medical History (Updated 06/28/23 @ 00:00 by Mckenzie Brewer) Anxiety Encounter for removal of intrauterine contraceptive device <Michelle Alvarado PA-C - Last Filed: 06/28/23 22:05> Surgical History Surgical History: Surgical History (Updated 04/07/23 @ 14:04 by Margy Lim CMA) H/O gynecological procedure mirena iud insertion - 09/19/2020 Mirena IUD removal 04/07/23 <Michelle Alvarado PA-C - Last Filed: 06/28/23 22:05> Family History Family History: Family History Mother History of blood clots Other Hypertension Renal failure <Michelle Alvarado PA-C - Last Filed: 06/28/23 22:05> Social History Social History: Social History Smoking status: Never smoker Second hand tobacco smoke exposure: No Alcohol intake: never Substance use: current Substance use type: marijuana Other substance usage details: daily Living arrangements: with family Occupation/Education: occupation 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 HEAD: Normocephalic, atraumatic. EYES: EOMI. CHEST: Clear to auscultation. No respiratory distress. No wheezes rales or rhonchi HEART: Regular rate and rhythm. No murmur heard. Normal peripheral pulses. ABDOMEN: Soft, nontender, nondistended, normal active bowel sounds. EXTREMITIES: Normal range of motion. No edema. SKIN: Warm, dry, no rash. NEURO: No focal deficits. Alert and oriented x3. PSYCH: Normal mood and affect PELVIC: Normal external genitalia. Scant brown/pink blood in the vaginal vault <Michelle Alvarado PA-C - Last Filed: 06/28/23 22:05>
[2023-06-27 18:13] LABS: Partial Thromboplastin Time 159.1 Seconds (22.3-36.8)
[2023-06-27 18:20] LABS: Appearance Urine Clear (Clear); Bacteria Urine None Seen /hpf; Bilirubin Urine Negative (Negative); Blood Urine 2+ (Negative); Color Urine Yellow (Yellow); Glucose Urine UA Negative (Negative); Ketones Urine Negative (Negative); Leukocyte Esterase Ur Trace LEU/UL (Negative); Nitrate Urine Negative (Negative); Non Pathogenic Casts 0-2; Protein Urine Negative (Negative); RBC Urine 0-2 /hpf (0-2); Specific Grav Ur 1.016 (1.001-1.035); Squamous Epithelial Cell Urine None Seen /hpf (Few); Urobilinogen Urine 0.2 mg/dL (<2.0); WBC Urine 0-5 /hpf (0-3)
[2023-06-27 18:33] LABS: Add Urine Microscopic? YES
[2023-06-27 18:55] LABS: Partial Thromboplastin Time > 200.0 Seconds (22.3-36.8)
--- NOTE | 2023-06-27 19:21 | PC.NURSE ---
this rn assumed care of patient. this rn took patient report from ANABEL Machado.
[2023-06-27] MEDS: ACETAMINOPHEN 500 MG TABLET 1000 MG PO (20:34)
[2023-06-27 20:40] VITALS: BP 124/76; PULSE 83; RESP 18; O2SAT 100
== END 2023-06-27 20:43 | disposition home or self-care (01) ==
PROVIDERS: Emergency Provider Physician Assistant
DX: O46.091 Antepartum hemorrhage with other coagulation defect, first trimester (principal); Z3A.01 Less than 8 weeks gestation of pregnancy
CPT/HCPCS: 36415; 76801; 76817; 80053; 81001; 84702; 85025; 85461; 85610; 85730; 86850; 86900; 86901; 99284; A9270

== ENCOUNTER 2023-06-30 09:34 | Outpatient (CLI) | payer OTHER, SELFPAY | END 2023-06-30 09:35 | disposition home or self-care (01) | LOC: ANHLAB 09:35 | PROVIDERS: Visit Provider Physician Assistant | DX: O46.90 Antepartum hemorrhage, unspecified, unspecified trimester (principal) | CPT/HCPCS: 36415; 84702 ==

== ENCOUNTER 2023-07-08 16:19 | Outpatient (CLI) | payer OTHER, SELFPAY ==
[2023-07-08 17:33] LABS: Basophils Percent Auto 0.4 % (0.2-1.2); Eosinophils Absolute Auto 0.1 K/mm3 (0-0.3); Eosinophils Percent Auto 0.5 % (0-4.4); Hematocrit 37.5 % (37.0-47.0); Hemoglobin 12.2 g/dL (12.0-15.0); Immature Granulocyte Absolute 0.04 K/mm3 (0.00-0.031); Immature Granulocyte Percent A 0.4 % (0-0.5); Lymphocytes Absolute Auto 2.09 K/mm3 (0.9-3.2); Lymphocytes Percent Auto 19.7 % (18.3-44.2); Mean Corpuscular HGB Conc 32.5 g/dl (32-36); Mean Corpuscular Volume 86.2 fl (80-100); Mean Platelet Volume 11.1 fl (7.4-10.4); Monocytes Absolute Auto 0.4 K/mm3 (0.1-0.6); Monocytes Percent Auto 3.7 % (2.6-8.5); Neutrophils Percent Auto 75.3 % (45.5-73.1); Platelet Count Result 217 k/mm3 (150-375); Red Blood Count 4.35 M/mm3 (4.2-5.4); White Blood Count 10.6 K/mm3 (4.5-10.0)
[2023-07-08 18:19] LABS: HIV 1/2 Ab P24 Ag Result Negative (Negative)
[2023-07-08 19:27] LABS: Hepatitis B Surface Antigen Negative (Negative); Rubella IgG Antibody > 110.0 IU/ML
[2023-07-09 11:03] LABS: Varicella IgG Antibody <135.00 index
[2023-07-09 13:14] LABS: Rapid Plasma Reagin Non-Reactive (NonReactive)
[2023-07-09 14:13] LABS: CMV IgG Antibody <0.60 U/mL
== END 2023-07-08 16:20 | disposition home or self-care (01) ==
LOC: ANHLAB 16:20
PROVIDERS: Visit Provider Student in an Organized Health Care Education/Training Program
DX: N94.89 Other specified conditions associated with female genital organs and menstrual cycle (principal)
CPT/HCPCS: 36415; 84702; 85025; 86592; 86644; 86703; 86747; 86762; 86787; 86850; 86900; 86901; 87086; 87088; 87340; G0432

== ENCOUNTER 2023-12-09 10:06 | Outpatient (CLI) | payer OTHER, SELFPAY ==
[2023-12-09 11:34] LABS: Hematocrit 33.2 % (37.0-47.0); Hemoglobin 11.1 g/dL (12.0-15.0); Mean Corpuscular HGB Conc 33.4 g/dl (32-36); Mean Corpuscular Hemoglobin 27.4 pg (26-34); Mean Platelet Volume 10.4 fl (7.4-10.4); Platelet Count Result 188 k/mm3 (150-375); Red Blood Count 4.05 M/mm3 (4.2-5.4); Red Cell Distribution Width 14.3 % (11.5-14.5); White Blood Count 8.9 K/mm3 (4.5-10.0)
[2023-12-09 11:43] LABS: Glucose 1 Hour PP 50gm Dose 113 mg/dL
[2023-12-09 12:25] LABS: HIV 1/2 Ab P24 Ag Result Negative (Negative)
[2023-12-10 13:13] LABS: Rapid Plasma Reagin Non-Reactive (NonReactive)
== END 2023-12-09 10:07 | disposition home or self-care (01) ==
LOC: ANHLAB 10:08
PROVIDERS: Visit Provider Student in an Organized Health Care Education/Training Program
DX: Z34.90 Encounter for supervision of normal pregnancy, unspecified, unspecified trimester (principal); Z3A.00 Weeks of gestation of pregnancy not specified
CPT/HCPCS: 36415; 82947; 85027; 86592; 86703; G0432

== ENCOUNTER 2024-02-28 16:51 | Inpatient (IN) | payer OTHER, MEDICAID, SELFPAY ==
[2024-02-28] VITALS (12 sets, daily range): BP systolic 123–140; BP diastolic 65–87; PULSE 66–119; TEMP 36.9; BMI 33.2
[2024-02-28 17:18] LABS: Basophils Percent Auto 0.2 % (0.2-1.2); Eosinophils Percent Auto 0.3 % (0-4.4); Hematocrit 35.8 % (37.0-47.0); Hemoglobin 11.4 g/dL (12.0-15.0); Immature Granulocyte Absolute 0.02 K/mm3 (0.00-0.031); Immature Granulocyte Percent A 0.2 % (0-0.5); Lymphocytes Absolute Auto 1.45 K/mm3 (0.9-3.2); Lymphocytes Percent Auto 16.4 % (18.3-44.2); Mean Corpuscular HGB Conc 31.8 g/dl (32-36); Mean Corpuscular Hemoglobin 24.8 pg (26-34); Mean Platelet Volume 11.9 fl (7.4-10.4); Monocytes Absolute Auto 0.4 K/mm3 (0.1-0.6); Monocytes Percent Auto 4.5 % (2.6-8.5); Neutrophils Absolute Auto 6.9 K/mm3 (1.3-6.7); Neutrophils Percent Auto 78.4 % (45.5-73.1); Platelet Count Result 173 k/mm3 (150-375); Red Blood Count 4.59 M/mm3 (4.2-5.4); Red Cell Distribution Width 16.8 % (11.5-14.5); White Blood Count 8.8 K/mm3 (4.5-10.0)
[2024-02-28] MEDS: DINOPROSTONE 10 MG VAG INSERT VAGINAL (17:28)
--- NOTE | 2024-02-28 17:37 | LDADM ---
This patient, Janene Joshua, was admitted to Labor/Delivery/Recovery 107 on 02/28/24 at 16:51. Plans for labor, pain management and were discussed with patient. Patient/family oriented to hospital policies and general routines including ID bracelet, bed and alarms, visiting hours, pain management, procedures, bathroom and other care routines, personal items, smoking policy, room service/diet and guest tray routines, infant security routines, and visiting hours. Patient/Family are encouraged to report perceived risks to care and to ask questions if they do not understand what they are told or what they should do. See OBIX for further documentation.
[2024-02-28 18:11] LABS: HIV 1/2 Ab P24 Ag Result Negative (Negative)
--- NOTE | 2024-02-28 18:26 | P.PNAN_ITS ---
Anes - Eval Pre Procedure Procedure: Labor epidural Date/Time: 02/28/24 18:26 Surgeon: Bhaskar Preop Diagnosis: Abdominal pain with contractions Pre Op Diagnosis: IOL Patient Data Age: 29 Gender: F Height: 1.6 m Weight: 85 kg Last Vital Signs Pulse 88 02/28/24 18:16 BP 129/82 02/28/24 18:16 O2 Del Method Room Air 02/28/24 16:54 Allergies Allergy/AdvReac Type Severity Reaction Status Date / Time No Known Allergies Allergy Verified 02/24/24 14:40 Home Medications ?Medication ?Instructions ?Recorded ?Confirmed ?Type vits no.126-ferrous fum 1 tablet PO DAILY 09/29/23 02/28/24 History 28 mg iron-folic acid 800 mcg tablet (Classic ) Laboratory Tests 02/28/24 16:59 WBC 8.8 K/mm3 (4.5-10.0) RBC 4.59 M/mm3 (4.2-5.4) Hgb 11.4 L g/dL (12.0-15.0) Hct 35.8 L % (37.0-47.0) MCV 78.0 L fl (80-100) MCH 24.8 L pg (26-34) MCHC 31.8 L g/dl (32-36) RDW 16.8 H % (11.5-14.5) Plt Count 173 k/mm3 (150-375) MPV 11.9 H fl (7.4-10.4) Immature Gran % (Auto) 0.2 % (0-0.5) Neut % (Auto) 78.4 H % (45.5-73.1) Lymph % (Auto) 16.4 L % (18.3-44.2) [place] % (Auto) 4.5 % (2.6-8.5) Eos % (Auto) 0.3 % (0-4.4) Baso % (Auto) 0.2 % (0.2-1.2) Lymph # (Auto) 1.45 K/mm3 (0.9-3.2) [place] # (Auto) 0.4 K/mm3 (0.1-0.6) Eos # (Auto) 0.0 K/mm3 (0-0.3) Baso # (Auto) 0.0 K/mm3 (0.0-0.1) Abs Immat Gran (auto) 0.02 K/mm3 (0.00-0.031) Absolute Neuts (auto) 6.9 H K/mm3 (1.3-6.7) Absolute Nucleated RBC 0.000 K/mm3 (0.0-0.012) Nucleated RBC % 0.0 % (0.0-0.2) RPR Pending HIV 1&2 Ab/P24 Ag 4thGn Negative (Negative) : gestational age HCG: positive Patient hx anesthesia problems: none Family hx anesthesia problems: none Results Review: All pre-operative results and documents have been reviewed as part of the pre- operative evaluation. [facility] Past Medical History Medical History (Updated 02/28/24 @ 18:28 by Lyle Casas Jr., CRNA) Overweight (BMI 25.0-29.9) Anxiety and depression Suppression of menses Encounter for removal of intrauterine contraceptive device Anxiety Surgical History Surgical History H/O gynecological procedure mirena iud insertion - 09/19/2020 Mirena IUD removal 04/07/23 Family History Family History (Updated 02/24/24 @ 14:29 by Soumya Phillips RN) Mother History of blood clots Other Acute myocardial infarction Hypertension Renal failure Social History Social History Smoking status: Never smoker Second hand tobacco smoke exposure: No Alcohol intake: never Substance use: current Substance use type: marijuana Other substance usage details: daily Do You Feel Safe in your Home?: Yes Lack of Transportation: No Lack of Food: Never True Current Housing: I Have Housing Concerned About Future Housing: No Difficulty Paying Gas/Electric Bills: No Difficulty Paying for Meds: No Currently Unemployed: No Education: High School Diploma/GED Difficulty w/ Childcare or Family Care: No Living arrangements: with family Occupation/Education: occupation 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
[2024-02-28 18:37] LABS: Rapid Plasma Reagin Non-Reactive (NonReactive)
[2024-02-29] VITALS (80 sets, daily range): BP systolic 82–159; BP diastolic 37–129; PULSE 67–165; RESP 16–18; TEMP 36.2–37.2; O2SAT 96–100
[2024-02-29] MEDS: LACTATED RINGERS 1,000 ML 125 ML IV CONT ×2 (05:55→10:37)
[2024-02-29] MEDS: OXYTOCIN 30 UNITS/NS 500 ML 30 UNITS/500 ML BAG IV CONT (05:55)
--- NOTE | 2024-02-29 07:31 | WPDHPUPDATE1 ---
History and Physical Update Update Date/Time: 02/29/24 07:31 29 yo who presents at 40w3d for elective IOL History and Physical has been reviewed, including an updated exam of the patient. There are NO changes in the patient's condition. Risks, benefits, and alternatives have been discussed and questions answered. Patient agrees to proceed with procedure. A/P: admit to L&D routine admission orders labs reviewed Rh + GBS neg plan for cervidil IOL continuous EFM
--- NOTE | 2024-02-29 07:32 | PM.OBPNLAB ---
Pain Control Date/time seen: 02/29/24 07:32 Pain control: tolerating well Pelvic Exam Dilation (cm): 2 Effacement (%): 50 station: -3 Amniotic membrane status: Intact Contractions Monitor mode: External Contraction pattern: Regular Contraction intensity: Moderate Status status: Category l Assessment and Plan Assessment: induction ongoing Comments: Cooks cervical balloon was placed with 40 mL of saline in each balloon. Patient tolerated well. will continue with pitocin augmentation
[2024-02-29] MEDS: fentaNYL CITRATE INJ (*CRX) 100 MCG/2 ML VIAL IV PUSH (10:35)
--- NOTE | 2024-02-29 13:23 | PM.OBPRVD ---
OB - Vaginal Delivery Note Procedure Delivery date: 02/29/24 Induction method: Per Cervidil Protocol Delivery augmentation: Rupture of Membranes and Pitocin Delivery monitor: External FHT and External Uterine Route of delivery: Laceration Description: Perineal - 2nd Degree Delivery repair: vicryl Specimen: Yes (placenta) Quantitative Blood Loss (ml): 250 Anesthesia type: Epidural Disposition: Floor Complications: No immediate complications Narrative: Patient pushed for a spontaneous vaginal delivery. The fetus was delivered atraumatically and placed on the maternal abdomen. The cord was clamped and cut after 1 minute of life and the pulse had diminished. The cord was double clamped and cut and a segment of cord was collected for cord gases. Cord blood was collected for blood type and Coomb's testing. The placenta delivered spontaneously and was noted to be intact. The perineum was inspected and a second degree laceration was noted. The laceration was repaired with 3-0 vicryl in the usual fashion. The uterus was firm and good hemostasis was noted. [place] Baby Date of : 02/29/24 Time of : 13:09 Gestational Age by Date: 40 Infant gender: Female presentation: vertex position: Right Occiput Anterior Placenta delivery description: Spontaneous Cord Vessel Description: 3 Vessels score one minute: 8 score five minutes: 9
[2024-02-29] MEDS: OXYTOCIN 30 UNITS/NS 500 ML 30 UNITS/500 ML BAG 125 UNITS IV CONT (13:50)
[2024-02-29] MEDS: ONDANSETRON INJ 4 MG/2 ML VIAL IV PUSH (14:52)
[2024-02-29] MEDS: BENZOCAINE 20% AER SPR (*SP) 56 GM CAN 1 SPRAY TOPICAL (15:29)
[2024-02-29] MEDS: WITCH HAZEL 40 PADS 1 PAD TOPICAL (15:29)
--- NOTE | 2024-02-29 16:37 | PC.NURSE ---
Patient transferred to post room #285 via wheelchair. Support person present. Oriented to unit, room, information board, rooming in, admission packet and security measures. Patient verbalizes understanding.
[2024-02-29] MEDS: ACETAMINOPHEN 325 MG TABLET 650 MG PO (19:37)
[2024-03-01] MEDS: ACETAMINOPHEN 325 MG TABLET 650 MG PO ×2 (03:05→12:06)
[2024-03-01] MEDS: IBUPROFEN 600 MG TABLET PO ×2 (03:08→12:07)
[2024-03-01 04:00] VITALS: BP 115/73; PULSE 82; RESP 16; TEMP 36.8; O2SAT 99
[2024-03-01 04:31] LABS: Hematocrit 32.3 % (37.0-47.0); Hemoglobin 10.3 g/dL (12.0-15.0)
[2024-03-01] MEDS: DOCUSATE SODIUM 100 MG CAPSULE PO (06:44)
[2024-03-01 07:30] VITALS: BP 119/75; PULSE 75; RESP 18; TEMP 36.3; O2SAT 100
--- NOTE | 2024-03-01 08:10 | P.PNOB_ITS ---
OB - PN: Subj Subjective Date/time seen: 03/01/24 08:10 Patient comments: no complaints, pain well controlled and tolerating diet [place] feeding status: exclusively breast feeding Narrative: patient doing well this AM. No complaints. Pain is well controlled. She reports minimal bleeding. She is ambulating and voiding without difficulty. She is tolerating PO. She denies N/V, fever, chills. OB - PN: Obj Data Labs 03/01/24 03:58 Labs: Laboratory Results - last 24 hr 03/01/24 03:58 Hgb 10.3 L Hct 32.3 L OB - PN A/P Plan day: 1 Plan: routine care Comments: patient doing well H/H stable continue routine care Time Spent With Patient Time: Total time spent is greater than 50% in coordination of care (as documented) at patient's floor/unit and/or counseling patient: Time with patient: less than 15 minutes Review of Systems 2 Review of Systems: All systems reviewed & are unremarkable except as noted in HPI and below Exam 2 Const: General: comfortable and no acute distress Resp: Effort & Inspection: normal respiratory effort Cardio: Rate: regular rate GI: GI Palp: Yes Soft to palpation and No Tenderness to palpation present (GI) Auscultation: normal bowel sounds Other: fundus firm and below umbilicus. Psych: Affect: normal affect
--- NOTE | 2024-03-01 08:52 | WPDANLDPN2 ---
Anes-Prog Note L&D Date/Time: 03/01/24 08:52 Comfortable throughout: labor and delivery Neuraxial method: epidural Epidural/Spinal procedure site: clean & non-tender Neuro status: Neuro function grossly intact. Cardiovascular status: normal Respiratory status: normal Airway patency: baseline Mental status: baseline Post-Op hydration status: normal Vital Signs: Last Vital Signs Temp 36.3 C L 03/01/24 07:30 Pulse 75 03/01/24 07:30 Resp 18 03/01/24 07:30 BP 119/75 03/01/24 07:30 Pulse Ox 100 03/01/24 07:30 O2 Del Method Room Air 03/01/24 07:25 Pain score (VAS): 1 I/O: Intake & Output 02/29/24 03/01/24 03/01/24 23:59 07:59 15:59 Output Total 200 Balance -200 Post-procedural complaints: none Patient feedback: Patient satisfied with anesthetic care.
[2024-03-01 12:38] VITALS: BP 122/71; PULSE 76; RESP 16; TEMP 36.6; O2SAT 100
--- NOTE | 2024-03-01 15:14 | P.DS_ITS ---
DS: Admitting Diagnosis Discharge Date 03/01/24 Admitting Diagnosis intrauterine at term DS: Discharge Diagnosis Discharge Diagnosis (1) Normal vaginal delivery: Code(s): O80 - Encounter for full-term uncomplicated delivery Status: Acute OB - DS: Summary OB Procedures : None OB Procedures Intrapartum: Spontaneous Vag Delivery OB Procedures: : None Peripartum Data Laceration Description: Perineal - 2nd Degree Status at Discharge Functional status at discharge: independent ambulation Overall status at discharge: patient is back to baseline Time Spent with Patient Time attestation: Total time spent providing and/or coordinating discharge services: Time spent: Less than 30 minutes Exam Const: General: comfortable and no acute distress Resp: Effort & Inspection: normal respiratory effort Auscultation: clear to auscultation bilaterally Cardio: Rate: regular rate GI: GI Palp: Yes Soft to palpation Auscultation: normal bowel sounds Other: Fundus firm below umbilicus Psych: Appearance: grossly normal Mental Status: mental status grossly normal Affect: normal affect DS: Data Data Completed and Pending Pending studies at discharge: Pending at discharge 02/29/24 13:29 Surgical [PTH] Routine Labs on day of discharge: Labs from last 24 hours 03/01/24 03:58 Hgb 10.3 L Hct 32.3 L Discharge Plan Discharge Discharging Clinician: Rito Muro Activity: may shower, as tolerated and pelvic rest Diet: regular Discharge Instructions: Education: Mom and Baby Guide Given to: Mother Follow-Up: Call your delivering provider's office for an appointment to be seen in: 4 Weeks Mom and baby should come to the [facility] for the follow-up appointment. Appointment Date/Time: March 02, 2024 at 3:00 pm What to expect at your follow-up visit: Blood Pressure Check Physical Assessment Call [phone] if you are unable to keep your appointment time. BREAST CARE: * Wear a snug supportive bra. * For engorgement discomfort: Breast Feeding: * Apply warm moist washcloths * Express milk as needed to relieve engorgement * Wear loose clothing Bottle Feeding: * May apply ice packs * For sore nipples: * Identify correct latch-on * Apply warm moist washcloths before and after nursing * Air dry nipples after nursing * May apply Lansinoh cream to nipples ABDOMINAL INCISION: (if applicable) * Allow incision to air dry * Do NOT use lotions for powders on your incision * When showering, allow soap and water to run over the incision, but do not wash incision EPISIOTOMY/PERINEAL CARE: * Until bleeding stops, use your renée bottle after urinating * Change your pad frequently throughout the day * You may take sitz baths several times a day (fill your bathtub with warm water and soak for 20 minutes.) Do NOT bathe in the water * No tub baths until seen by your physician - You may shower ACTIVITY: * Rest as much as possible. * Do not exercise or lift anything heavier than your baby (such as laundry or other children.) * Avoid stairs or driving as much as possible. * Do not put anything into the vagina. No douching, tampons, or sexual activity until seen by physician. NOTIFY PHYSICIAN IF YOU HAVE ANY QUESTIONS OR IF ANY OF THE FOLLOWING SYMPTOMS OCCUR: * If your episiotomy or incision becomes red, swollen, or more painful than what you have experienced in the hospital. * If your vaginal bleeding becomes foul smelling. * If your vaginal bleeding becomes more heavy than a period or if your bleeding changes from pink to bright red. However, you may pass an occasional walnut- sized clot once or twice for the first week . * If you experience a sharp, shooting pain in you calves. * If you discover a hard, reddened area on your breast or if you experience flu- like symptoms. DIET: * Eat regular, well-balanced meals. * Drink plenty of fluids daily. If , drink to thirst. Patient Instructions: Vaginal Delivery (DC) Patient Language: American Follow-up/Referrals: Rito Muro MD [Physician] - Discharge Medications: New acetaminophen 500 mg tablet 500 mg PO Q6H PRN (Reason: pain) Qty: 30 0RF ibuprofen 600 mg tablet 600 mg PO Q6H PRN (Reason: pain) Qty: 30 0RF No Action Classic 28 mg iron- 800 mcg tablet 1 tablet PO DAILY Date of admission: 02/28/24 16:51 Primary Care Provider: PHYSICIAN,RETAIL EVENT AND SALES ASSISTANT Admitting Provider: Rito Muro Attending physician on admission: Rito Muro Condition: Stable
[2024-03-02 14:56] VITALS: BP 136/82; PULSE 91; RESP 18; TEMP 37; O2SAT 100
--- OUTSIDE RECORDS SUMMARY | 2024-03-03 10:49 | XMS_ITS | CONTINUITY OF CARE DOCUMENT ---
Author Name marck sonuchantale Address Unknown Organization [facility] Address [address] [place] [address] Phone [phone] Care Team Providers Care First Grade Teacher Name Role Phone Anival DOMINGUEZ, Radha Unavailable [phone] BORIS MCDONALD MD Unavailable [phone] PROBLEMS Condition Status Date Provider Notes Obesity active Zack Ahmedzai Anemia active Zack Ahmedzai Hyperlipidemia active Zack Astorga VICENTA--mild, attempting weight loss active Radha Florian MD Snoring completed - Radha Florian MD Fast pulse completed - Radha Florian MD DIZZINESS active Radha Florian MD Dyspnea on exertion-- Echo E F 66%, mild TR, PASP 31 mmhg, 10/2021 active Radha Florian MD Chest pain--calcium score ze ro, 10/2021 active Radha Florian MD Family hx of CAD active Radha Florian MD ENCOUNTERS Date Type Provider Location Encounter Diag nosis - In-person encounter Office Visit Radha Florian MD [facility] - In-person encounter Office Visit Radha Florian MD [facility] - In-person encounter Office Visit Radha Florian MD [facility] - In-person encounter Office Visit Radha Florian MD [facility] Chest pain--calcium score zero, yspnea on exertion-- Echo EF 66%, mild TR, PASP 31 mmhg, 10/2021Fast pulseSnoringOSA--mi ld, attempting weight loss - In-person encounter Office Visit Radha Florian MD [facility] Family hx of CADChest pain--calcium score zero, yspnea on exertion-- Echo EF 66%, mild TR, PASP 31 mmhg, IZZINESS VITAL SIGNS Date Observation Value Provider Body Mass Index (Ratio) 29.93 kg/m2 John Florian MD blood pressure, cuff size regular rret blood pressure, diastolic 74 mm[Hg] Ja rret blood pressure, systolic 112 mm[Hg] Jar ret pulse rate 85 /min [facility] oxygen saturation, oximetry 99 % [place] respiratory rate E&M 14 /min [place] weight E&M 169 [lb_av] [facility] y height E&M 63 [in_i] [facility] y Body Mass Index (Ratio) 31.00 kg/m2 John Florian MD blood pressure, diastolic 71 mm[Hg] Faith nkLogic blood pressure, systolic 101 mm[Hg] Georgette kLogic blood pressure, cuff size regular Ja rret blood pressure, diastolic 71 mm[Hg] Ja rret blood pressure, systolic 101 mm[Hg] Jar ret pulse rate 93 /min [place]iston y oxygen saturation, oximetry 98 % [facility] respiratory rate E&M 12 /min [facility] weight E&M 175 [lb_av] [place] y height E&M 63 [in_i] [place] y Body Mass Index (Ratio) 33.83 kg/m2 John Florian MD blood pressure, diastolic 80 mm[Hg] Sarah cassandra Owens blood pressure, systolic 134 mm[Hg] Estefania claudia Owens pulse rate 79 /min Mirtha Roman oxygen saturation, oximetry 99 % Mirtha Roman weight E&M 191 [lb_av] Mirthaclaudia Owens blood pressure, cuff size large Sarah cassandra Owens height E&M 63 [in_i] Mirthaclaudia Owens Body Mass Index (Ratio) 33.02 kg/m2 John Florian MD blood pressure, diastolic 83 mm[Hg] St yasmine Dillard blood pressure, systolic 122 mm[Hg] Sta nate Dillard oxygen saturation, oximetry 98 % Estephania Dillard pulse rate 87 /min Estephanianate Dillard respiratory rate E&M 18 /min Estephania camp weight E&M 186.4 [lb_av] Estephanianate Dillard height E&M 63 [in_i] Estephanianate Dillard Body Mass Index (Ratio) 32.24 kg/m2 John Florian MD blood pressure, cuff size large Ke rri Mela blood pressure, diastolic 70 mm[Hg] Ke rri Prashantuenecandice blood pressure, systolic 110 mm[Hg] Michael ri Mela oxygen saturation, oximetry 99 % Aleena Mela respiratory rate E&M 14 /min Aleena rivas pulse rate 109 /min Aleena otero weight E&M 182 [lb_av] Aleena Shinesoninoemi lder height E&M 63 [in_i] Aleena Chavez lder ALLERGIES No Known Drug Allergies HISTORY OF MEDICATION USE Medication Status Instructions Dates Provider Indications Com ments phentermine 37.5 mg tablet completed TAKE 1 TABLET BY MOUTH DAILY - 6 Zack Astorga sertraline 50 mg tablet active Sol Ventimiglia FIELD ENUMERATOR omega [id number]-[id number]-fish oil 1,000 mg (120 mg-180 mg) capsule completed Take 1 capsule by mouth once a day - 9 Sol Ventimiglia FIELD ENUMERATOR SOCIAL HISTORY Date Observation Value Provider drug use no Zack Astorga alcohol use no Zack Astorga smoking status Never smoker Zack Astorga drug use no Sol Ventimig kaylin FIELD ENUMERATOR alcohol use no Sol Ventimig kaylin FIELD ENUMERATOR smoking status Never smoker Sol Ventim iglia FIELD ENUMERATOR social history reviewed E&M revi ewed - no changes required Zack Astorga smoking status Never smoker Mirtha Owens social history reviewed E&M revi ewed - no changes required Radha Florian MD social history E&M S moking History: Narcisa wan has never smoked. Zack Astorga smoking status Never smoker Estephania Dillard social history reviewed E&M revi ewed - no changes required Zack Astorga social history reviewed E&M revi ewed - no changes required Sylvia Chavez social history E&M S moking History: Narcisa wan has never smoked. Sylvia Chavez smoking status Never smoker Aleena Santo villagomez FAMILY HISTORY Family Member Condition Mother Family History of Co ronary Artery Disease: Father Family History of Co ronary Artery Disease: INSURANCE PROVIDERS Payer name Policy type / Coverage type Vanessa red constitution party ID [id number] In[employer] [id number] ADVANCE DIRECTIVES Name Date DISCUSSED - NO DECISION MADE TREATMENT PLAN Date Name Performer [id number],S, Radha Florian MD [id number],S, Radha Florian MD [id number],S, Radha Florian MD [id number],C,LDL [address] Jayde Florian MD [id number],S, Sol Venti miglia [facility] [id number],B,H as lost 18lbs since last visit. Will renew phentermine Sol Ventimiglia [facility] [id number],S,update lipid panel Sol Ventimiglia [facility] [id number],C,will update l abs Sol Ventimiglia [facility] [id number],S,H as noted more often unclear if related to iron deficiency or medication. We will update labs. We will also have her cut her zoloft dose back. She was encouraged to remain well hydrated. EKG NSR today. Will f/u in one month or sooner if needed. Slo Ventimiglia [facility] [id number],S, Zack Ahmedza i [id number],S, Zack Ahmedza i [id number],S, Zack Ahmedza i [id number],S, Zack Ahmedza i [id number],W, Radha Florian MD [id number],S, Radha Florian MD [id number],W, Radha Florian MD [id number],S, Radha Florian MD Cardiology Zack Astorga Cardiology Zack Ahmedzai Cardiology Zack Ahmedzai Cardiology Zack Ahmedzai Cardiology Zack Ahmedzai Telehealth Radha Florian MD Telehealth Radha Florian MD Telehealth Radha Florian MD Telehealth:LDL 164 Radha Florian MD Cardiology Sol Ventimigl ia FIELD ENUMERATOR Cardiology:Has lost 18lbs since last visit. Will renew phentermine Sol Ventimiglia FIELD ENUMERATOR Cardiology:update lipid panel Am belkis Ventimiglia FIELD ENUMERATOR Cardiology:will update labs Martir da Ventimiglia FIELD ENUMERATOR Cardiology:Has noted more often unclear if related to iron deficiency or medication. We will update labs. We will also have her cut her zoloft dose back. She was encouraged to remain well hydrated. EKG NSR today. Will f/u in one month or sooner if needed. Sol Ventimiglia FIELD ENUMERATOR Cardiology Zack Ahmedzai Cardiology Zack Ahmedzai Cardiology Zack Ahmedzai Cardiology Zack Ahmedzai Cardiology Radha Florian MD Cardiology Radha Florian MD Cardiology Radha Florian MD Cardiology Radha Florian MD Date Name Vitamin D, 25-Hydrox y IRON AND TOTAL IRON BINDING CAPACITY FERRITIN CBC (INCLUDES DIFF/P LT) HEMOGLOBIN A1c TSH, free T4, total T3 LIPID PANEL BASIC METABOLIC PANE L W/EGFR Holter Monitor 48 [address] Study [address] CT, Coronary Calcium Score Complete Echo HISTORY OF PROCEDURES Procedure Date Procedure Name Provider Procedure Notes S tatus EKG Radha Florian MD completed CT- Coronary CA score Radha Florian MD completed EKG Radha Florian MD completed
--- OUTSIDE RECORDS SUMMARY | 2024-03-03 10:49 | XMS_ITS | Clinical Summary ---
Author Organization [facility] Address [address] [place] [address] Care Team Providers Care Social Work Administrator Name Role Phone Unavailable Primary Care Provider Unavailabl e Social History Tobacco Use Types Packs/Day Years Used Date Smoking Tobacco: Never Assessed Comments Unknown Sex and Gender Information Value Date Recorded Sex Assigned at Not on file Legal Sex Female 2:50 PM CDT Gender Identity Not on file Sexual Orientation Not on file Plan of Treatment Health Maintenance Due Date Last Done Comments DTAP/TDAP/TD VACCINES (1 - Tdap) 2013 HEPATITIS B VACCINES (1 of 3 - 19+ 3-dose series) 2013 INFLUENZA VACCINE (#1) 2023 CERVICAL CANCER SCREENING 01/29/2024 HPV VACCINES Aged Out No longer eligi ble based on patient's age to complete this topic PNEUMOCOCCAL VACCINE 0-64 YEARS Aged Out No longer eligible based on patient's age to complete this topic
--- OUTSIDE RECORDS SUMMARY | 2024-03-03 10:49 | XMS_ITS | Data Portability ---
Author Organization [facility] Address [address] [place] [address] Assessment No assessment recorded. Plan of Treatment Reminders Order Date Submit Date Provider Last Modified By Organization Details Last Modified Time Details Appointments None recorded . Lab TSH, serum or plasma 2016 017 [facility], [address] [facility], [address], [place], [address], 7 19:08:10 CBC 2016 017 [facility], [address] [facility], [address], [place], [address], 7 19:08:08 lipid panel, serum 2016 017 [facility], [address] [facility], [address], [place], [address], 7 19:08:09 CMP, serum or plasma 2016 017 [facility], [address] [facility], [address], [place], [address], 7 19:08:09 HbA1c (hemoglo bin A1c), blood 2016 017 [facility], [address] [facility], [address], [place], [address], 7 19:08:11 TSH + free T4, serum 2021 [facility], [address] [place] [address] [address], [address], [place], [address], 10:12:56 vitamin D, 25-hydro xy, total, serum 2021 [facility], [address] [place] [address], [address], [place], [address], 10:13:00 vitamin B12 + folate, serum or blood 2021 [facility]ARD R[facility], [address] [place] [address], [address], [place], [address], 10:12:59 lipid panel, serum 2021 [facility], [address] [place] [address], [address], [place], [address], 10:12:58 CMP, serum or plasma 2021 GERARD R[facility], [address] [place] [address], [address], [place], [address], 10:12:57 CK (creatin e kinase), total, serum 2021 [facility], [address] [place] [address], [address], [place], [address], 10:13:01 HbA1c (hemoglo bin A1c), blood 2021 GERARD RICE, [address] [place] [address], [address], [place], [address], 10:13:00 iron + total iron-bin ding capacity (TIBC), serum 2021 [facility], [address] [facility], [address], [place], [address], 10:12:58 ferritin , serum or plasma 2021 [facility], [address] [place] [address], [address], [place], [address], 10:13:05 CBC w/ auto diff 2021 [facility], [address] [place] [address], [address], [place], [address], 10:12:56 Referral physical therapis t referral - low back pain since the delivery of her babies . Please eval and treat . Thank you 2021 [facility], [address] [facility], [place], [address], 19:59:05 cardiolo gist referral - Strong family history of heart disease . She is worried , wants to be around for her kids , non-smok er . Please evaluate and treat prn . Thank you 2021 [place], [address] [address], [address], [address], 16:06:47 Procedures None recorded . Surgeries None recorded . Imaging None recorded . Medication Orders metronid azole 500 mg tablet 2016 017 [facility] #[id number], [address], [place], [place], [id number], 11:27:27 betameth asone dipropio kenyon 0.05 % topical ointment 2016 017 [facility] #[id number], [address], [place], [place], [id number], 2 11:26:03 metronid azole 500 mg tablet 2016 017 [facility] #[id number], [address], [place], [place], [id number], 2 11:27:27 citalopr am 20 mg tablet 2016 017 [facility] #54574, [address], [place], [place], [id number], 2 11:27:03 citalopr am 40 mg tablet 2016 017 [facility] #54044, [address], [place], [place], [id number], 2 11:27:06 nortript yline 10 mg capsule 2016 017 [facility] #47042, [address], [place], [place], [id number], 2 11:27:33 sertrali ne 100 mg tablet [address] [facility]09646, [address], [place], [place], [id number], 2 17:55:43 cholecal ciferol (vitamin D3) 25 mcg (1,000 unit) tablet [address] [facility] #[id number], [address], [place], [place], [id number], 16:54:29 ezetimib e 10 mg tablet 2021 022 nancy [facility] #02706, [address], [place], [place], [id number], 16:54:29 Patient TargetsNo targets recorded. Patient Instructions Encounter Date Encounter Id Patient Instructions Last Modified By Organization Details Last Modified Time 04/07/2016 [id number] her hands have flared : advised avoiding harsh detergents and anti-bacterail soaps , use eucerin cream hourly nancy Not available 04/08/2016 13:57:01 06/02/2016 [id number] we discussed a med to lower chol , she will try diet first . reviewed diet with her nancy Not available 06/03/2016 13:56:13 08/07/2016 [id number] counselled ,,, nancy Not availabl e 08/07/2016 14:46:12 denies snoring , no apnea episodes [email or web address] Not available 08/07/2016 14:46:31 10/29/2021 [id number] reviewed diet to decrease fats and carbs . does not drink much alcohol . 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 She is worried , wants to be around for her kids , non-smoker . Please evaluate and treat prn . Thank you Referring Physician: [facility], Encounter Date: 09/02/2021 Physical Therapist Referral for Low back strain low back pain since the delivery of her babies . Please eval and treat . Thank you Referring Physician: [facility], Encounter Date: 09/02/2021 Results Created Date Observation Date Name Description Value Unit Range Abnormal Flag Note LastModifiedBy Organization Detail LastModifiedTime 04/10/19 17 04/10/2016 CBC WBC 11.8 x10e3 /uL 3.4-10 .8 above high normal Not Available [facility] ([facility]) [address] [facility] [place], [address], 04/11/2016 19:08:08 04/10/19 17 04/10/2016 CBC RBC 4.82 x10e6 /uL 3.77-5 .28 Not Available [facility] ([facility]) [address] [facility] [place], [address], 04/11/2016 19:08:08 04/10/19 17 04/10/2016 CBC hemoglobin 13.5 g/dL 11.1-1 5.9 Not Available [facility] ([facility]) [address] [facility] [place], [address], 04/11/2016 19:08:08 04/10/19 17 04/10/2016 CBC hematocrit 40.3 % 34.0-4 6.6 Not Available [facility] ([facility]) [address] [facility] [place], [address], 04/11/2016 19:08:08 04/10/19 17 04/10/2016 CBC MCV 84 fL 79-97 Not Available [facility] ([facility]) [address] [facility] [place], [address], 04/11/2016 19:08:08 04/10/19 17 04/10/2016 CBC MCH 28.0 pg 26.6-3 3.0 Not Available [facility] ([facility]) [address] [facility] [place], [address], 04/11/2016 19:08:08 04/10/19 17 04/10/2016 CBC MCHC 33.5 g/dL 31.5-3 5.7 Not Available [facility] ([facility]) [address] [facility] [place], [address], 04/11/2016 19:08:08 04/10/19 17 04/10/2016 CBC RDW 13.4 % 12.3-1 5.4 Not Available [facility] ([facility]) [address] [place], [address], 04/11/2016 19:08:08 04/10/19 17 04/10/2016 CBC platelets 219 x10e3 /uL 150-37 9 Not Available [facility] ([facility]) [address] [place], [address], 04/11/2016 19:08:08 04/10/19 17 04/10/2016 CBC neutrophils 66 % Not Avai lable [facility] ([facility]) [address] [place], [address], 04/11/2016 19:08:08 04/10/19 17 04/10/2016 CBC lymphs 27 % Not Available [facility] ([facility]) [address] [place], [address], 04/11/2016 19:08:08 04/10/19 17 04/10/2016 CBC monocytes 5 % Not Availa ble [facility] ([facility]) [address] [place], [address], 04/11/2016 19:08:08 04/10/19 17 04/10/2016 CBC eos 2 % Not Available [facility] ([facility]) [address] [place], [address], 04/11/2016 19:08:08 04/10/19 17 04/10/2016 CBC basos 0 % Not Available [facility] ([facility]) [address] [place], [address], 04/11/2016 19:08:08 04/10/19 17 04/10/2016 CBC immature cells [employer] Not Available [facility] ([facility]) [address] [place], [address], 04/11/2016 19:08:08 04/10/19 17 04/10/2016 CBC neutrophils (absolute) 7.6 x10e3 /uL 1.4-7. 0 above high normal Not Available [facility] ([facility]) [address] [facility], [place], [address], 04/11/2016 19:08:08 04/10/19 17 04/10/2016 CBC lymphs (absolute) 3.2 x10e3 /uL 0.7-3. 1 above high normal Not Available [facility] ([facility]) [address] [facility], [place], [address], 04/11/2016 19:08:08 04/10/19 17 04/10/2016 CBC monocytes(ab solute) 0.6 x10e3 /uL 0.1-0. 9 Not Available [facility] ([facility]) [address] [facility], [place], [address], 04/11/2016 19:08:08 04/10/19 17 04/10/2016 CBC eos (absolute) 0.3 x10e3 /uL 0.0-0. 4 Not Available [facility] ([facility]) [address] [facility], [place], [address], 04/11/2016 19:08:08 04/10/19 17 04/10/2016 CBC baso (absolute) 0.0 x10e3 /uL 0.0-0. 2 Not Available [facility] ([facility]) [address] [facility], [place], [address], 04/11/2016 19:08:08 04/10/19 17 04/10/2016 CBC immature granulocytes 0 % Not Available [facility] ([facility]) [address] [facility], [place], [address], 04/11/2016 19:08:08 04/10/19 17 04/10/2016 CBC immature grans (abs) 0.0 x10e3 /uL 0.0-0. 1 Not Available [facility] ([facility]) [address] [facility], [place], [address], 04/11/2016 19:08:08 04/10/19 17 04/10/2016 CBC NRBC [employer] Not Available [facility] ([facility]) [address] [place], [address], 04/11/2016 19:08:08 04/10/19 17 04/10/2016 CBC hematology comments: [employer] Not Available [facility] ([facility]) [address] [facility] [place], [address], 04/11/2016 19:08:08 04/10/19 17 04/10/2016 CMP, serum or plasm a glucose, serum 78 mg/dL 65-99 Not Available [facility] ([facility]) [address] [facility] [place], [address], 04/11/2016 19:08:09 04/10/19 17 04/10/2016 CMP, serum or plasm a BUN 7 mg/dL 6-20 Not Available [facility] ([facility]) [address] [facility] [place], [address], 04/11/2016 19:08:09 04/10/19 17 04/10/2016 CMP, serum or plasm a creatinine, serum 0.60 mg/dL 0.57-1 .00 Not Available [facility] ([facility]) [address] [facility] [place], [address], 04/11/2016 19:08:09 04/10/19 17 04/10/2016 CMP, serum or plasm a eGFR if nonafricn AM 130 mL/mi n/1.7 3 >59 Not Available [facility] ([facility]) [address] [facility] [place], [address], 04/11/2016 19:08:09 04/10/19 17 04/10/2016 CMP, serum or plasm a eGFR if africn AM 150 mL/mi n/1.7 3 >59 Not Available [facility] ([facility]) [address] [facility] [place], [address], 04/11/2016 19:08:09 04/10/19 17 04/10/2016 CMP, serum or plasm a BUN/creatini ne ratio 12 8-20 Not Available [facility] ([facility]) [address] [place], [address], 04/11/2016 19:08:09 04/10/19 17 04/10/2016 CMP, serum or plasm a sodium, serum 138 mmol/ L 134-14 4 Not Available [facility] ([facility]) [address] [place], [address], 04/11/2016 19:08:09 04/10/19 17 04/10/2016 CMP, serum or plasm a potassium, serum 3.6 mmol/ L 3.5-5. 2 Not Available [facility] ([facility]) [address] [place], [address], 04/11/2016 19:08:09 04/10/19 17 04/10/2016 CMP, serum or plasm a chloride, serum 98 mmol/ L 96-106 Not Available [facility] ([facility]) [address] [place], [address], 04/11/2016 19:08:09 04/10/19 17 04/10/2016 CMP, serum or plasm a carbon dioxide, total 20 mmol/ L 18-29 Not Available [facility] ([facility]) [address] [place], [address], 04/11/2016 19:08:09 04/10/19 17 04/10/2016 CMP, serum or plasm a calcium, serum 9.4 mg/dL 8.7-10 .2 Not Available [facility] ([facility]) [address] [place] [address], [address], 04/11/2016 19:08:09 04/10/1904/10/2016 CMP, serum or plasm a protein, total, serum 7.2 g/dL 6.0-8. 5 Not Available [facility] ([facility]) [address] [place], [address], 04/11/2016 19:08:09 04/10/19 17 04/10/2016 CMP, serum or plasm a albumin, serum 4.7 g/dL 3.5-5. 5 Not Available [facility] ([facility]) [address] [facility] [place], [address], 04/11/2016 19:08:04/10/1904/10/2016 CMP, serum or plasm a globulin, total 2.5 g/dL 1.5-4. 5 Not Available [facility] ([facility]) [address] [facility], [place], [address], 04/11/2016 19:08:04/10/1904/10/2016 CMP, serum or plasm a A/G ratio 1.9 1.1-2. 5 EFF ECTIV E APRIL 21, 2016 THE REFER ENCE INTER JENNY FOR A/G RATIO WILL BE NORMAN ING TO: AGE MALE FEMAL E 0 - 7 DAYS 1.1 - 2.3 1.1 - 2.3 8 - 30 DAYS 1.2 - 2.8 1.2 - 2.8 1 - 6 MONTH S 1.3 - 3.6 1.3 - 3.6 7 MONTH S - 5 YEARS 1.5 - 2.6 1.5 - 2.6 > 5 YEARS 1.2 - 2.2 1.2 - 2.2 Not Available [facility] ([facility]) [address] [facility], [place], [address], 04/11/2016 19:08:04/10/1904/10/2016 CMP, serum or plasm a bilirubin, total 0.4 mg/dL 0.0-1. 2 Not Available [facility] ([facility]) [address] [facility], [place], [address], 04/11/2016 19:08:09 04/10/1904/10/2016 CMP, serum or plasm a alkaline phosphatase, S 67 IU/L 39-117 Not Available [facility] ([facility]) [address] [facility] [place], [address], 04/11/2016 19:08:09 04/10/19 17 04/10/2016 CMP, serum or plasm a AST (SGOT) 12 IU/L 0-40 Not Available [facility] ([facility]) [address] [facility] [place], [address], 04/11/2016 19:08:09 04/10/19 17 04/10/2016 CMP, serum or plasm a ALT (SGPT) 14 IU/L 0-32 Not Available [facility] ([facility]) [address] [facility] [place], [address], 04/11/2016 19:08:09 04/10/19 17 04/10/2016 lipid panel , serum cholesterol, total 191 mg/dL 100-19 9 Not Available [facility] ([facility]) [address] [facility] [place], [address], 04/11/2016 19:08:09 04/10/19 17 04/10/2016 lipid panel , serum triglyceride s 204 mg/dL 0-149 above high normal Not Available [facility] ([facility]) [address] [facility] [place], [address], 04/11/2016 19:08:09 04/10/19 17 04/10/2016 lipid panel , serum HDL cholesterol 39 mg/dL >39 below low normal Not Available [facility] ([facility]) [address] [facility] [place], [address], 04/11/2016 19:08:09 04/10/19 17 04/10/2016 lipid panel , serum VLDL cholesterol kristen 41 mg/dL 5-40 above high normal Not Available [facility] ([facility]) [address] [facility] [place], [address], 04/11/2016 19:08:09 04/10/19 17 04/10/2016 lipid panel , serum LDL cholesterol calc 111 mg/dL 0-99 above high normal Not Available [facility] ([facility]) [address] [facility], [place], [address], 04/11/2016 19:08:09 04/10/19 17 04/10/2016 lipid panel , serum comment: [employer] Not Available [facility] ([facility]) [address] [facility], [place], [address], 04/11/2016 19:08:09 04/10/19 17 04/10/2016 lipid panel , serum LDL/HDL ratio 2.8 ratio _unit s 0.0-3. 2 LDL/H DL RATIO MEN WOMEN 1/2 AVG.R ISK 1.0 1.5 AVG.R ISK 3.6 3.2 2X AVG.R ISK 6.2 5.0 3X AVG.R ISK 8.0 6.1 Not Available [facility] ([facility]) [address] [facility], [place], [address], 04/11/2016 19:08:09 04/10/1904/11/2016 TSH, serum or plasm a TSH-icma 1.6 uu/mL REFER ENCE RANGE : PUBER LUDA CHILD ATIF AND ADULT S: 0.5 - 4.8 Not Available [facility] [address] [place] [address], [address], 04/11/2016 19:08:10 04/10/19 17 04/10/2016 HbA1c (hemo globi n A1c), blood hemoglobin A1C 5.1 % 4.8-5. 6 PRE-D IABET ES: 5.7 - 6.4 DIABE MAY: >6.4 GLYCE RADHA CONTR OL FOR ADULT S WITH DIABE MAY: <7.0 Not Available [facility] ([facility]) [address] [facility], [place], [address], 04/11/2016 19:08:10 09/05/19 22 09/05/2021 TSH+F REE T4 TSH 1.450 uIU/m L 0.450- 4.500 Not Available [facility] ([facility]) [address] [place], [address], 09/05/2021 10:12:56 09/05/19 22 09/05/2021 TSH+F REE T4 T4,free(dire ct) 1.20 NG/dL 0.82-1 .77 Not Available [facility] ([facility]) [address] [facility], [place], [address], 09/05/2021 10:12:56 09/05/19 22 09/05/2021 CBC WITH DIFFE RENTI AL/PL ATELE T WBC 7.3 x10e3 /uL 3.4-10 .8 Not Available [facility] ([facility]) [address] [facility], [place], [address], 09/05/2021 10:12:56 09/05/19 22 09/05/2021 CBC WITH DIFFE RENTI AL/PL ATELE T RBC 5.34 x10e6 /uL 3.77-5 .28 above high normal Not Available [facility] ([facility]) [address] [place], [address], 09/05/2021 10:12:56 09/05/19 22 09/05/2021 CBC WITH DIFFE RENTI AL/PL ATELE T hemoglobin 14.0 g/dL 11.1-1 5.9 Not Available [facility] ([facility]) [address] [place], [address], 09/05/2021 10:12:56 09/05/19 22 09/05/2021 CBC WITH DIFFE RENTI AL/PL ATELE T hematocrit 43.7 % 34.0-4 6.6 Not Available [facility] ([facility]) [address] [place], [address], 09/05/2021 10:12:56 09/05/19 22 09/05/2021 CBC WITH DIFFE RENTI AL/PL ATELE T MCV 82 fL 79-97 Not Available [facility] ([facility]) [address] [place], [address], 09/05/2021 10:12:56 09/05/19 22 09/05/2021 CBC WITH DIFFE RENTI AL/PL ATELE T MCH 26.2 pg 26.6-3 3.0 below low normal Not Available [facility] ([facility]) [address] [place], [address], 09/05/2021 10:12:56 09/05/19 22 09/05/2021 CBC WITH DIFFE RENTI AL/PL ATELE T MCHC 32.0 g/dL 31.5-3 5.7 Not Available [facility] ([facility]) [address] [place], [address], 09/05/2021 10:12:56 09/05/19 22 09/05/2021 CBC WITH DIFFE RENTI AL/PL ATELE T RDW 15.9 % 11.7-1 5.4 above high normal Not Available [facility] ([facility]) [address] [place], [address], 09/05/2021 10:12:56 09/05/19 22 09/05/2021 CBC WITH DIFFE RENTI AL/PL ATELE T platelets 222 x10e3 /uL 150-45 0 Not Available [facility] ([facility]) [address] [place], [address], 09/05/2021 10:12:56 09/05/19 22 09/05/2021 CBC WITH DIFFE RENTI AL/PL ATELE T neutrophils 68 % not estab. Not Available [facility] ([facility]) [address] [place], [address], 09/05/2021 10:12:56 09/05/19 22 09/05/2021 CBC WITH DIFFE RENTI AL/PL ATELE T lymphs 26 % not estab. Not Available [facility] ([facility]) [address] [place], [address], 09/05/2021 10:12:56 09/05/19 22 09/05/2021 CBC WITH DIFFE RENTI AL/PL ATELE T monocytes 5 % not estab. Not Available [facility] ([facility]) [address] [facility], [place], [address], 09/05/2021 10:12:56 09/05/19 22 09/05/2021 CBC WITH DIFFE RENTI AL/PL ATELE T eos 1 % not estab. Not Available [facility] ([facility]) [address] [place], [address], 09/05/2021 10:12:56 09/05/19 22 09/05/2021 CBC WITH DIFFE RENTI AL/PL ATELE T basos 0 % not estab. Not Available [facility] ([facility]) [address] [place], [address], 09/05/2021 10:12:56 09/05/19 22 09/05/2021 CBC WITH DIFFE RENTI AL/PL ATELE T immature cells [employer] Not Available [facility] ([facility]) [address] [place], [address], 09/05/2021 10:12:56 09/05/19 22 09/05/2021 CBC WITH DIFFE RENTI AL/PL ATELE T neutrophils (absolute) 4.9 x10e3 /uL 1.4-7. 0 Not Available [facility] ([facility]) [address] [place], [address], 09/05/2021 10:12:56 09/05/19 22 09/05/2021 CBC WITH DIFFE RENTI AL/PL ATELE T lymphs (absolute) 1.9 x10e3 /uL 0.7-3. 1 Not Available [facility] ([facility]) [address] [place], [address], 09/05/2021 10:12:56 09/05/19 22 09/05/2021 CBC WITH DIFFE RENTI AL/PL ATELE T monocytes(ab solute) 0.4 x10e3 /uL 0.1-0. 9 Not Available [facility] ([facility]) [address] [facility], [place], [address], 09/05/2021 10:12:56 09/05/19 22 09/05/2021 CBC WITH DIFFE RENTI AL/PL ATELE T eos (absolute) 0.1 x10e3 /uL 0.0-0. 4 Not Available [facility] ([facility]) [address] [facility], [place], [address], 09/05/2021 10:12:56 09/05/19 22 09/05/2021 CBC WITH DIFFE RENTI AL/PL ATELE T baso (absolute) 0.0 x10e3 /uL 0.0-0. 2 Not Available [facility] ([facility]) [address] [facility], [place], [address], 09/05/2021 10:12:56 09/05/19 22 09/05/2021 CBC WITH DIFFE RENTI AL/PL ATELE T immature granulocytes 0 % not estab. Not Available [facility] ([facility]) [address] [facility], [place], [address], 09/05/2021 10:12:56 09/05/19 22 09/05/2021 CBC WITH DIFFE RENTI AL/PL ATELE T immature grans (abs) 0.0 x10e3 /uL 0.0-0. 1 Not Available [facility] ([facility]) [address] [place], [address], 09/05/2021 10:12:56 09/05/19 22 09/05/2021 CBC WITH DIFFE RENTI AL/PL ATELE T NRBC [employer] Not Available [facility] ([facility]) [address] [place], [address], 09/05/2021 10:12:56 09/05/19 22 09/05/2021 CBC WITH DIFFE TAMEKA AL/SVETLANA Zhang hematology comments: [employer] Not Available [facility] ([facility]) [address] [facility], [place], [address], 09/05/2021 10:12:56 09/05/19 22 09/05/2021 COMP. METAB OLIC PANEL (14) glucose 84 mg/dL 65-99 Not Available [facility] ([facility]) [address] [facility], [place], [address], 09/05/2021 10:12:57 09/05/19 22 09/05/2021 COMP. METAB OLIC PANEL (14) BUN 11 mg/dL 6-20 Not Available [facility] ([facility]) [address] [facility], [place], [address], 09/05/2021 10:12:57 09/05/19 22 09/05/2021 COMP. METAB OLIC PANEL (14) creatinine 0.64 mg/dL 0.57-1 .00 Not Available [facility] ([facility]) [address] [facility], [place], [address], 09/05/2021 10:12:57 09/05/19 22 09/05/2021 COMP. METAB OLIC PANEL (14) eGFR 124 mL/mi n/1.7 3 >59 Not Available [facility] ([facility]) [address] [facility], [place], [address], 09/05/2021 10:12:57 09/05/19 22 09/05/2021 COMP. METAB OLIC PANEL (14) BUN/creatini ne ratio 17 9-23 Not Available [facility] ([facility]) [address] [facility], [place], [address], 09/05/2021 10:12:57 09/05/19 22 09/05/2021 COMP. METAB OLIC PANEL (14) sodium 141 mmol/ L 134-14 4 Not Available [facility] ([facility]) [address] [facility] [place], [address], 09/05/2021 10:12:57 09/05/19 22 09/05/2021 COMP. METAB OLIC PANEL (14) potassium 4.5 mmol/ L 3.5-5. 2 Not Available [facility] ([facility]) [address] [facility] [place], [address], 09/05/2021 10:12:57 09/05/19 22 09/05/2021 COMP. METAB OLIC PANEL (14) chloride 101 mmol/ L 96-106 Not Available [facility] ([facility]) [address] [facility] [place], [address], 09/05/2021 10:12:57 09/05/19 22 09/05/2021 COMP. METAB OLIC PANEL (14) carbon dioxide, total 25 mmol/ L 20-29 Not Available [facility] ([facility]) [address] [place], [address], 09/05/2021 10:12:57 09/05/19 22 09/05/2021 COMP. METAB OLIC PANEL (14) calcium 10.0 mg/dL 8.7-10 .2 Not Available [facility] ([facility]) [address] [place], [address], 09/05/2021 10:12:57 09/05/19 22 09/05/2021 COMP. METAB OLIC PANEL (14) protein, total 7.9 g/dL 6.0-8. 5 Not Available [facility] ([facility]) [address] [facility] [place], [address], 09/05/2021 10:12:57 09/05/19 22 09/05/2021 COMP. METAB OLIC PANEL (14) albumin 4.8 g/dL 3.9-5. 0 Not Available [facility] ([facility]) [address] [place], [address], 09/05/2021 10:12:57 09/05/19 22 09/05/2021 COMP. METAB OLIC PANEL (14) globulin, total 3.1 g/dL 1.5-4. 5 Not Available [facility] ([facility]) [address] [place], [address], 09/05/2021 10:12:57 09/05/19 22 09/05/2021 COMP. METAB OLIC PANEL (14) A/G ratio 1.5 1.2-2. 2 Not Available [facility] ([facility]) [address] [place], [address], 09/05/2021 10:12:57 09/05/19 22 09/05/2021 COMP. METAB OLIC PANEL (14) bilirubin, total 0.4 mg/dL 0.0-1. 2 Not Available [facility] ([facility]) [address] [place], [address], 09/05/2021 10:12:57 09/05/19 22 09/05/2021 COMP. METAB OLIC PANEL (14) alkaline phosphatase 93 IU/L 44-121 Not Available [facility] ([facility]) [address] [place], [address], 09/05/2021 10:12:57 09/05/19 22 09/05/2021 COMP. METAB OLIC PANEL (14) AST (SGOT) 16 IU/L 0-40 Not Available [facility] ([facility]) [address] [place], [address], 09/05/2021 10:12:57 09/05/19 22 09/05/2021 COMP. METAB OLIC PANEL (14) ALT (SGPT) 22 IU/L 0-32 Not Available [facility] ([facility]) [address] [place], [address], 09/05/2021 10:12:57 09/05/19 22 09/05/2021 LIPID PANEL cholesterol, total 239 mg/dL 100-19 9 above high normal Not Available [facility] ([facility]) [address] [place], [address], 09/05/2021 10:12:58 09/05/19 22 09/05/2021 LIPID PANEL triglyceride s 568 mg/dL 0-149 alert high Not Available [facility] ([facility]) [address] [place], [address], 09/05/2021 10:12:58 09/05/19 22 09/05/2021 LIPID PANEL HDL cholesterol 36 mg/dL >39 below low normal Not Available [facility] ([facility]) [address] [place], [address], 09/05/2021 10:12:58 09/05/19 22 09/05/2021 LIPID PANEL VLDL cholesterol kristen 98 mg/dL 5-40 above high normal Not Available [facility] ([facility]) [address] [place], [address], 09/05/2021 10:12:58 09/05/19 22 09/05/2021 LIPID PANEL LDL chol calc ([facility]) 105 mg/dL 0-99 above high normal Not Available [facility] ([facility]) [address] [place], [address], 09/05/2021 10:12:58 09/05/19 22 09/05/2021 LIPID PANEL comment: [employer] Not Available [facility] ([facility]) [address] [place], [address], 09/05/2021 10:12:58 09/05/19 22 09/05/2021 IRON AND TIBC iron bind.cap.(TI BC) 365 ug/dL 250-45 0 Not Available [facility] ([facility]) [address] [place], [address], 09/05/2021 10:12:58 09/05/19 22 09/05/2021 IRON AND TIBC UIBC 297 ug/dL 131-42 5 Not Available [facility] ([facility]) [address] [facility] [place], [address], 09/05/2021 10:12:58 09/05/19 22 09/05/2021 IRON AND TIBC iron 68 ug/dL 27-159 Not Available [facility] ([facility]) [address] [facility] [place], [address], 09/05/2021 10:12:58 09/05/19 22 09/05/2021 IRON AND TIBC iron saturation 19 % 15-55 Not Available [facility] ([facility]) [address] [facility] [place], [address], 09/05/2021 10:12:58 09/05/19 22 09/05/2021 VITAM IN B12 AND FOLAT E vitamin B12 403 pg/mL 232-12 45 Not Available [facility] ([facility]) [address] [facility] [place], [address], 09/05/2021 10:12:59 09/05/19 22 09/05/2021 VITAM IN B12 AND FOLAT E folate (folic acid), serum 15.9 NG/mL >3.0 A serum folat e hernán ntrat ion of less than 3.1 ng/mL is consi dered to repre sent clini kristen defic iency . Not Available [facility] ([facility]) [address] [facility] [place], [address], 09/05/2021 10:12:59 09/05/19 22 09/05/2021 HEMOG LOBIN A1C hemoglobin A1C 5.4 % 4.8-5. 6 Predi abete s: 5.7 - 6.4 Diabe may: >6.4 Glyce radha contr ol for adult s with diabe may: <7.0 Not Available [facility] ([facility]) [address] [facility] [place], [address], 09/05/2021 10:13:00 09/05/19 22 09/05/2021 VITAM IN D, 25-HY DROXY vitamin D, 25-hydroxy 21.7 NG/mL 30.0-1 00.0 below low normal Vitam in D defic iency has been defin ed by the Insti tute of Medic ine and an Endoc rine Socie ty pract ice guide line as a level of serum 25-OH vitam in D less than 20 ng/mL (1,2) . The Endoc rine Socie ty went on to furth er defin e vitam in D insuf ficie ncy as a level betwe en 21 and 29 ng/mL (2). 1. IOM (Inst itute of Medic ine). 2010. Shari ry refer ence alexandra es for calci um and D. Sindhu jin [place]: The [facility] Press . 2. Azam spring MF, Rima ey [place], Komal off-F errar i DUNCAN, et al. Evalu ation , treat ment, and preve ntion of vitam in D defic iency : an Endoc rine Socie ty clini kristen pract ice guide line. JCEM. 2010; 96(7) :1911 -30. Not Available [facility] ([facility]) [address] [facility] [place], [address], 09/05/2021 10:13:00 09/05/19 22 09/05/2021 CREAT INE CAROLYNN E,TOT AL creatine kinase,total 45 U/L 32-182 Not Available [facility] ([facility]) [address] [facility], [place], [address], 09/05/2021 10:13:01 09/05/19 22 09/05/2021 MISBAH TIN ferritin 70 NG/mL 15-150 Not Available [facility] ([facility]) [address] [facility], [place], [address], 09/05/2021 10:13:05 11/06/19 22 11/05/2021 CT, coron ventura calci um score No observ ation record ed. [email or web address] [facility] [address], [place], [address], 11/07/2021 18:58:32 11/06/19 22 11/05/2021 trans -thor acic echoc ardio gram (TTE) (PROC ) No observ ation record ed. [email or web address] [facility] [address], [place], [address], 11/07/2021 18:26:56 11/15/19 22 11/05/2021 sleep study , diagn ostic (PROC ) No observ ation record ed. [address] [facility] [address], [place], [address], 11/21/2021 22:03:05 Result Notes None recorded. Problems Name Problem SNOMED Code Status Onset Date Resolution Date Notes Provider Name and Address Organization Details Recorded Time Low back strain 648245415 Active 2021 Jese Baldwin PA-C Attn: Mechelle akbar,[address] [place], [address], [facility] - [facility] 2 12:00:50 Obese 091978862 Active 2021 Jese Baldwin PA-C Attn: Accounttino g,[address] [place], [address], [place] - [facility] 2 12:04:12 Anemia 813138165 Active 2021 Jese Baldwin PA-C Attn: Accountin g,[address] [place], [address], [place] - [facility] 2 12:05:19 Hyperlipide lisbeth 99713214 Active 2021 Jese Baldwin PA-C Attn: Accounttino g,[address] [place], [address], [place] [facility] 2 18:14:52 Vitamin D below reference range 899614619 Active 2021 Jese Baldwin PA-C Attn: Mechelle akbar,[address] [facility], [place], [address], [place] [facility] 2 18:28:26 Contact dermatitis 52621301 Active 2015 Jese Baldwin PA-C Attn: Ashleetino akbar,[address] [facility], [place], [address], [place] [facility] 6 15:12:05 Depressive disorder 52563146 Active 2015 Jese Baldwin PA-C Attn: Mechelle raffy,[address] [place], [address], [place] [facility] 6 15:13:38 Renal pain 228771520 Active 2015 Jese Baldwin PA-C Attn: Mechelle akbar,[address] [place], [address], [place] [facility] 6 15:19:11 Bacterial vaginosis 704950814 Active 2016 Jese Baldwin PA-C Attn: Mechelle raffy,[address] [facility], [place], [address], [place] [facility] 7 15:48:59 Retroverted uterus 012317779 Completed 201604/07/2016 Jese Baldwin PA-C Attn: Mechelle akbar,[address] [place], [address], [place] [facility] 7 15:53:49 Disorder of urinary bladder 90559402 Active 2016 Jese Baldwin PA-C Attn: Mechelle akbar,[address] [place], [address], [place] [facility] 7 15:53:38 Family history of Raised blood lipids 934658602 Active 2016 Jese Baldwin PA-C Attn: Mechelle akbar,[address], [place], [address], [place] - [facility] 7 15:54:58 Problem Notes None recorded. Procedures Surgical History None recorded. Imaging Results Imaging Date Name Status LastModified by Organization Details LastModified Time 11/05/2021 CT, coronary calcium score completed [address] [facility] [address], [place], [address], 11/07/2021 18:58:32 11/05/2021 trans-thoracic echocardiogram (TTE) (PROC) completed [address] [facility] [address], [place], [address], 11/07/2021 18:26:56 11/05/2021 sleep study, diagnostic (PROC) completed [address] [facility] [address] , [place], [address], 11/21/2021 22:03:05 Procedure Notes None recorded. Medical Equipment None Reported. Allergies No known drug allergies Medications Name Sig Start Date Stop Date Status Note LastModified by Organization Details LastModified Time prednisone 10 mg tablet 09/02 completed Not Available Not Available Not Available citalopram 40 mg tablet Take 1 tablet every day by oral route in the evening for 30 days. 09/02 completed Not Available Not Available Not Available sertraline 100 mg tablet TAKE 1 TABLET BY MOUTH EVERY DAY IN THE MORNING active Not Available Not Available No t Available metronidazo le 500 mg tablet TAKE 1 TABLET BY MOUTH EVERY 12 HOURS FOR 7 DAYS 09/02 completed Not Available Not Available Not Available amoxicillin 500 mg tablet Take 1 tablet every 12 hours by oral route for 10 days. 09/02 completed Not Available Not Available Not Available citalopram 20 mg tablet TAKE 1 TABLET BY MOUTH EVERY DAY, 2 TO 3 HOURS BEFORE BEDTIME 09/02 completed Not Available Not Available Not Available famotidine 20 mg tablet TAKE 1 TABLET BY MOUTH EVERY NIGHT AT DINNER 09/02 completed Not Available Not Available Not Available nortriptyli ne 10 mg capsule Take 1 capsule as needed by oral route at bedtime for 30 days. 09/02 completed Not Available Not Available Not Available triamcinolo ne acetonide 0.1 % topical ointment APPLY A THIN LAYER TO THE AFFECTED AREA(S) BY TOPICAL ROUTE 2 TIMES PER DAY 09/02 completed Not Available Not Available Not Available hydroxyzine HCl 25 mg tablet TAKE 1 TABLET BY MOUTH EVERY 8 HOURS NEEDED FOR ITCHING 09/02 completed Not Available Not Available Not Available ibuprofen 600 mg tablet TAKE 1 TABLET BY MOUTH THREE TIMES DAILY 09/02 completed Not Available Not Available Not Available betamethaso ne dipropionat e 0.05 % topical ointment APPLY A THIN LAYER TO THE AFFECTED AREA(S) BY TOPICAL ROUTE twice DAILY to right thigh 09/02 completed Not Available Not Available Not Available sertraline 50 mg tablet TAKE 1 TABLET BY MOUTH EVERY DAY 09/02 completed Not Available Not Available Not Available amoxicillin 875 mg-potassiu m clavulanate 125 mg tablet TAKE 1 TABLET BY MOUTH TWICE DAILY WITH FOOD 09/02 completed Not Available Not Available Not Available ezetimibe 10 mg tablet Take 1 tablet every day by oral route in the morning for 30 days. 2022 active Not Available Not Available Not Avai lable omega-3 acid ethyl esters 1 gram capsule TAKE 2 CAPSULES BY MOUTH TWICE DAILY AFTER MEALS active Not Available Not Available No t Available Mirena active Not Available Not Availa ble Not Available apple cider vinegar active Not Available Not Available Not Available cholecalcif paco (vitamin D3) 25 mcg (1,000 unit) tablet TAKE 1 TABLET BY MOUTH EVERY DAY WITH A MEAL FOR 30 DAYS active Not Available Not Available No t Available FeroSul 325 mg (65 mg iron) tablet TAKE 1 TABLET BY MOUTH EVERY DAY 09/02 completed Not Available Not Available Not Available Fluvirin 7386-6424 45 mcg (15 mcg x 3)/0.5 mL intramuscul ar suspension 09/02 completed Not Available Not Available Not Available Vitals Date Recorded Body height Provider Name an d Address Organization Details Last Updated DateTime 09/02/2021 160.02 cm Kusum Anderson [place] [facility] 09/02/2021 11:21:50 Date Recorded Body mass index (BMI) Body weight Provider Name and Address Organization Details Last Updated DateTime 09/02/2021 31.4 kg/m2 98061.28 g Kusum Travis [facility] 09/02/2021 11:23:33 Date Recorded Oxygen saturation Oxygen saturation in Arterial blood by Pulse oximetry Provider Name and Address Organization Details Last Updated DateTime 09/02/2021 98 % 98 % Kusum Travis [facility] 09/02/2021 11:33:42 Date Recorded Heart rate Provider Name an d Address Organization Details Last Updated DateTime 09/02/2021 97 /min Kusum Castelanyuan [facility] 09/02/2021 11:33:44 Date Recorded Body height Provider Name an d Address Organization Details Last Updated DateTime 10/29/2021 160.02 cm Dolores Sheriff [place] [facility] 10/30/19 22 15:33:20 Date Recorded Body mass index (BMI) Body weight Provider Name and Address Organization Details Last Updated DateTime 10/29/2021 32.2 kg/m2 49612.81 g Dolores Sheriff [facility] 10/29/2021 15:33:30 Date Recorded Oxygen saturation Oxygen saturation in Arterial blood by Pulse oximetry Provider Name and Address Organization Details Last Updated DateTime 10/29/2021 98 % 98 % Dolores Sheriff [place] [facility] 10/29/2021 15:36:48 Date Recorded Heart rate Provider Name an d Address Organization Details Last Updated DateTime 10/29/2021 93 /min Dolores Sheriff [facility] 10/30/19 22 15:36:51 Date Recorded Body temperature Provider Name a nd Address Organization Details Last Updated DateTime 10/29/2021 97.8 [degF] Dolores Sheriff [facility] 022 15:36:57 Date Recorded Body height Provider Name an d Address Organization Details Last Updated DateTime 04/07/2016 160.02 cm Naheed Brambila [place] [facility] 2016 14:55:27 Date Recorded Body weight Body mass index (BMI) Provider Name and Address Organization Details Last Updated DateTime 04/07/2016 00078.89 g 25.7 kg/m2 Naheed rBambila [place] [facility] 04/07/2016 14:55:32 Date Recorded Oxygen saturation Oxygen saturation in Arterial blood by Pulse oximetry Provider Name and Address Organization Details Last Updated DateTime 04/07/2016 99 % 99 % Naheed Brambila [place] [facility] 04/07/2016 14:56:02 Date Recorded Heart rate Provider Name an d Address Organization Details Last Updated DateTime 04/07/2016 83 /min Naheed Brambila [place] [facility] 2016 14:56:05 Date Recorded Body temperature Provider Name a nd Address Organization Details Last Updated DateTime 04/07/2016 98.1 [degF] Naheed Brambila [place] [facility] 04/07/2016 14:56:10 Date Recorded Body height Provider Name an d Address Organization Details Last Updated DateTime 06/02/2016 160.02 cm Chelsy Weller [facility] 017 15:32:55 Date Recorded Body weight Body mass index (BMI) Provider Name and Address Organization Details Last Updated DateTime 06/02/2016 66521.89 g 25.7 kg/m2 Chelsy Weller [facility] 06/02/2016 15:33:06 Date Recorded Oxygen saturation Oxygen saturation in Arterial blood by Pulse oximetry Provider Name and Address Organization Details Last Updated DateTime 06/02/2016 98 % 98 % Chelsy Weller [facility] 06/02/2016 15:33:11 Date Recorded Heart rate Provider Name an d Address Organization Details Last Updated DateTime 06/02/2016 88 /min Chelsy Weller [facility] 017 15:33:13 Date Recorded Body temperature Provider Name a nd Address Organization Details Last Updated DateTime 06/02/2016 98.6 [degF] Chelsy Weller [facility] 2016 15:33:17 Date Recorded Body height Provider Name an d Address Organization Details Last Updated DateTime 08/07/2016 160.02 cm Naheed Brambila [place] [facility] 2016 12:29:06 Date Recorded Body mass index (BMI) Body weight Provider Name and Address Organization Details Last Updated DateTime 08/07/2016 24.4 kg/m2 00286.95 g Naheed Brambila [place] [facility] 08/07/2016 12:29:17 Date Recorded Oxygen saturation Oxygen saturation in Arterial blood by Pulse oximetry Provider Name and Address Organization Details Last Updated DateTime 08/07/2016 98 % 98 % Naheedminal BrambilaCARMEN [facility] 08/07/2016 12:29:49 Date Recorded Heart rate Provider Name an d Address Organization Details Last Updated DateTime 08/07/2016 77 /min Naheed CARMEN Brambila [facility] 2016 12:29:53 Date Recorded Body temperature Provider Name a nd Address Organization Details Last Updated DateTime 08/07/2016 98.5 [degF] Naheed CARMEN Brambila [facility] 08/07/2016 12:29:57 Date Recorded Systolic blood pressure Diastolic blood pressure Provider Name and Address Organization Details Last Updated DateTime 09/02/2021 126 mm[Hg] 72 mm[Hg] Kusum Travis [place] [facility] 09/02/2021 11:33:34 Date Recorded Systolic blood pressure Diastolic blood pressure Provider Name and Address Organization Details Last Updated DateTime 10/29/2021 126 mm[Hg] 70 mm[Hg] Dolores Sheriff [place] [facility] 10/29/2021 15:36:44 Date Recorded Systolic blood pressure Diastolic blood pressure Provider Name and Address Organization Details Last Updated DateTime 04/07/2016 112 mm[Hg] 72 mm[Hg] Naheed CARMEN Brambila [facility] 04/07/2016 14:57:06 Date Recorded Systolic blood pressure Diastolic blood pressure Provider Name and Address Organization Details Last Updated DateTime 06/02/2016 126 mm[Hg] 64 mm[Hg] Chelsy Weller [place] [facility] 06/02/2016 15:33:01 Date Recorded Systolic blood pressure Diastolic blood pressure Provider Name and Address Organization Details Last Updated DateTime 08/07/2016 104 mm[Hg] 68 mm[Hg] Naheed Brambila [place] [facility] 08/07/2016 12:31:01 Social History Question Answer Notes LastModified by Organizat ion Details LastModified Time Tobacco Smoking Status Never Smoker [facility]2016 14:49:06 Do You Have An Advance Directive? No Information not available 02/05/2016 What Is Your Level Of Alcohol Consumption? Occasional Information not available 02/05/2016 Are You Blind Or Do You Have Difficulty Seeing? No Information not available 09/02/2021 What Is Your Level Of Caffeine Consumption? Occasional Information not available 09/02/2021 How Much Tobacco Do You Chew? None Information not available 02/05/2016 Are You Currently Employed? Yes Information not available 09/02/2021 Are You Deaf Or Do You Have Serious Difficulty Hearing? No Information not available 09/02/2021 What Type Of Diet Are You Following? 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 No Information not available 02/05/2016 Hard Of Hearing Or Deaf In One Or Both Ears? No Information not available 02/05/2016 Legally Blind In One Or Both Eyes? No Information not available 02/05/2016 Marital Status Single Informatio n not available 02/05/2016 What Was The Date Of Your Most Recent Tobacco Screening? 09/02/2021 Information not available 09/02/2021 How Many Children Do You Have? 1 Information not available 09/02/2021 Performs Monthly Self-breast Exam? Yes Information not available 02/05/2016 What Is Your Relationship Status? Single Information not available 09/02/2021 Do You Use Your Seat Belt Or Car Seat Routinely? Yes Information not available 09/02/2021 Seat Belts Used Routinely Yes Information not available 02/05/2016 Are You Sexually Active? No Information not available 09/02/2021 Smoke Alarm In Home No Information not available 02/05/2016 Do You Have Smoke And Carbon Monoxide Detectors In Your Home? Yes Information not available 09/02/2021 At What Age Did You Start Smoking Tobacco? 0 Information not available 02/05/2016 Are You Passively Exposed To Smoke? No Information not available 09/02/2021 How Much Tobacco Do You Smoke? No Information not available 02/05/2016 General Stress Level High Information not available 02/05/2016 Do You Feel Stressed (tense, Restless, Nervous, Or Anxious, Or Unable To Sleep At Night)? [id number] Information not available 09/02/2021 Do You Use Any Illicit Or Recreational Drugs? Yes A Little Wilfrido Information not available 09/02/2021 Do You Use Sunscreen Routinely? No Information not available 02/05/2016 How Many Years Have You Smoked Tobacco? 0 Information not available 02/05/2016 Sex: Female Functional Status Question Answer Note LastModified by Organizat ion Details LastModified Time Are you able to care for yourself? Yes Information not available 09/02/2021 What is your exercise level? Occasional Information not available 09/02/2021 Mental Status None recorded. Family History Relationship Description Onset Age of this Age Resolved Age Notes LastModified by Organization Details LastModified Time Mother Heart disease [email or web address] Not available 2015 14:48:33 Father Kidney disease [email or web address] Not available 2015 14:48:43 Father Hypertensive disorder [email or web address] Not available 2015 14:48:52 Medical History Condition Response Coronary Artery Disease N Other N Atrial Fibrillation N High Blood Pressure N Kidney or Bladder Problems Y Thyroid Problems N GI Problems N Depression N COPD N Blood Clots N Skin Problems N Anemia N Heart Attack ([place]) N Anxiety Disorder N Diabetes N Muscle, Joint, or Bone Problems N Seizures/Epilepsy N Acid Reflux (GERD) N Cancer N Stroke N Asthma N Allergies Y High Cholesterol N Hepatitis N Liver Disease N Headaches N Heart Failure N Osteoporosis N Gynecological History Statement/Question Response Flow Moderate Date of LMP 01/24/2016 Frequency of Cycle (Q days) 28 Menses Monthly Y Duration of Flow (days) 5 Current Control Method None LMP Definite Obstetrics History GPAL:G 0 P 0 0 0 0 Past Encounters Encounter ID Performer Location Encounter Start Date Encounter Closed Date Diagnosis/Indication Diagnosis SNOMED-CT Code Diagnosis ICD10 Code Diagnosis Note [id number] SHAYLEE Cole (Adult Med) [address] [place] [id number] 02/05/2016 14:31:47 02/05/2016 15:36:57 Contact dermatitis 63192486 L25.9 Depressive disorder 3548 9007 F32.89 Renal pain 341030519 N23 left worse than right [id number] SHAYLEE Cole (Adult Med) [address] [place] [id number] 0 04/07/2016 14:49:26 04/07/2016 15:58:18 Renal pain 500624542 N23 left worse than right Depressive disorder 3548 9007 F32.89 Contact dermatitis 94670 004 L25.9 Bacterial vaginosis 4197 92165 N76.0 Disorder o f urinary bladder 88781346 N32.9 Family his tory of Raised blood lipids 052152906 Z83.49 [id number] SHAYLEE Cole (Adult Med) [address] [place] [id number] 0 06/02/2016 15:02:21 06/02/2016 16:42:13 Bacterial vaginosis 040573635 N76.0 Depressive disorder 3548 9007 F32.89 [id number] SHAYLEE Cole (Adult Med) [address] [place] [id number] 0 08/07/2016 12:20:07 08/08/2016 09:37:26 Depressive disorder 79048630 F32.89 [id number] SHAYLEE Cole (Adult Med) [address] [place] [id number] 09/02/2021 11:08:20 09/03/2021 10:54:23 Family history of Raised blood lipids 780206464 Z83.49 Depressive disorder 3548 9007 F32.89 Low back strain 44744271 1 S39.012A Obese 434292921 E66.9 Anemia 546757593 D64.9 [id number] SHAYLEE Cole (Adult Med) [address] [place] [id number] 10/29/2021 15:18:33 10/30/2021 10:20:13 Vitamin D below reference range 650667973 E55.9 Depressive disorder 3548 9007 F32.89 Hyperlipidemia 73826243 E78.5 Low back strain 83499045 1 S39.012A Obese 092255364 E66.9 Contact dermatitis 99194 004 L25.9 Health Concerns Section Related Observation LastModified by Organization Detai ls LastModified Time None Recorded Concern Status LastModified by Organization Details LastModified Time None Recorded Advance Directives Directive N: Payers Encounter Date Sequence Insurance Name Policy Number Policy Moise Covered Member ID Moise Member ID Guarantor Name 04/07/2016 1 [facility] (MEDICAID HMO) Janeneclinton Joshua [id number] Janene Tres 06/02/2016 1 [facility] (MEDICAID HMO) Janeneclinton Vazquezin [id number] Janene [place] 08/07/2016 1 [facility] (MEDICAID HMO) Janeneclinton Vazquezin [id number] Janene Tres 09/02/2021 1 [facility] (MEDICAID REPLACEMENT - HMO) [id number] Janeneclinton Vazquezin [id number] Ajnene [place] 10/29/2021 1 [facility] [id number] Janene Tres [id number] Janene Joshua Notes Date Note Type Note Provider Name and Address Organization Details Recorded Time 04/07/2016 text/html sob with walking Jese Baldwin PA-C Attn: [address] [place], [address], [facility] - [place] 04/08/2016 13:57:45 06/02/2016 text/html bacterial vagino sis is back Jese Baldwin PA-C Attn: [address] [place], [address], [place] 06/03/2016 13:56:32 08/07/2016 text/html feeling better o n citalopram , still just wants to sleep ....Is going to the gym every other day , proud of 9 pound weight loss . Jese Baldwin PA-C Attn: [address] [place], [address], [place] 08/07/2016 14:46:42 09/02/2021 text/html was low on iron , chol high , triglycerides high at [employer] Jese Baldwin PA-C Attn: [address] [facility], [place], [address], [facility] - [place] 09/03/2021 16:03:57 10/29/2021 text/html Janene Joshua i s here today for a follow up after labwork. She has started physical therapy for her lower back. She reports always being tired the whole day and does not sleep well. Jese Baldwin PA-C Attn: [address] [facility], [place], [address], [facility] [place] 10/30/2021 10:17:38 OBGyn Episode No OBEpisode recorded.
== END 2024-03-01 15:37 | disposition home or self-care (01) | DRG 807 ==
LOC: ANHLDR 16:53 → ANHOB2 02-29 16:19
PROVIDERS: Admitting Provider Student in an Organized Health Care Education/Training Program; Visit Provider Student in an Organized Health Care Education/Training Program
DX: O62.3 Precipitate labor (principal); Z37.0 Single live birth; O70.1 Second degree perineal laceration during delivery; O77.0 Labor and delivery complicated by meconium in amniotic fluid; Z3A.40 40 weeks gestation of pregnancy
CPT/HCPCS: 36415; 85014; 85018; 85025; 86592; 86703; 86850; 86900; 86901; 88307; A9270; G0432; J2405; J2590; J2795; J3010; J7120

== ENCOUNTER 2024-04-08 08:53 | Inpatient (IN) | payer OTHER, MEDICAID, SELFPAY ==
[2024-04-08] VITALS (8 sets, daily range): BP systolic 111–144; BP diastolic 60–89; PULSE 66–88; RESP 14–21; TEMP 36.4–36.6; O2SAT 98–100; BMI 31.3
--- NOTE | ~2024-04-08 | MR_ITS ---
EXAMINATION: MR MRCP wo/w con/w 3D wo ind DATE: 04/09/2024 09:05 INDICATION: Gallstone pancreatitis TECHNIQUE: Magnetic resonance imaging (MRI) of the abdomen was performed without and with 16 mL Multi thuy intravenous contrast. Sequences included coronal T2-weighted SS-FSE, coronal T2-weighted FS SS- FSE, coronal T2-weighted FS FIESTA, axial T2-weighted FS FIESTA, axial T2-weighted FIESTA, sagittal T 2-weighted SS-FSE, axial T1-weighted dual-echo FSPGR, axial T2-weighted SS-FSE, axial T1-weighted LAV A, axial T2-weighted STIR FSE. Thick-slab T2-weighted FRFSE-XL images were obtained for magnetic reso nance cholangiopancreatography (MRCP). Rotating maximum intensity projection 3-D reconstructions of t he volumetric data were created by the technologist. Postcontrast sequences included a time course of axial T1-weighted LAVA. COMPARISON: CT dated 04/08/2024 FINDINGS: ABDOMEN MRI: Heart size is normal. No pericardial or pleural effusion. Increased signal in the depend ent aspect of the bilateral lower lobes which could represent atelectasis or pneumonia. Multiple tiny gallstones layering in the dependent aspect of the otherwise normal-appearing gallbladder. No gallbl adder dilation, wall thickening or pericholecystic inflammatory stranding to suggest acute cholecysti tis. Nonspecific mild splenomegaly measuring 14.0 cm in length. Bilateral adrenal glands and kidneys are normal. There is increasing retroperitoneal fluid surrounding the pancreas extending caudally camden ng the bilateral anterior pararenal spaces and paracolic gutters. Additional edema tracking caudally along the mesentery and lesser omentum. There is diffuse interstitial edema throughout the pancreas which demonstrates homogeneous enhancemen t with no evident necrosis. Visualized portions of bowels are unremarkable with no obstruction. No pa thologically enlarged abdominal or upper pelvic lymphadenopathy. Normal bone marrow signal throughou t. ABDOMEN MRCP: No intrahepatic biliary ductal dilation. The extrahepatic biliary ducts are also normal in caliber me asuring 5 mm the common hepatic duct, 4 mm in maximal diameter at the common bile duct with gradual s mooth distal tapering. No evident choledocholithiasis. No dilation of the main pancreatic duct which is difficult to distinguish from the pancreatic edema. IMPRESSION: 1. Multiple tiny gallstones in the dependent aspect of the normal gallbladder. 2. Diffuse acute interstitial pancreatitis with prominent nonloculated peripancreatic fluid tracking into the intra and retroperitoneal soft tissue tissues. 3. No intra or extrahepatic biliary ductal dilation or evident choledocholithiasis. 4. Increased signal in the dependent lower lobes which could represent atelectasis or pneumonia. Reviewed, dictated and finalized at location A. NCE RECESSER IMPRESSION: 1. Multiple tiny gallstones in the dependent aspect of the normal gallbladder. 2. Diffuse acute interstitial pancreatitis with prominent nonloculated peripanc reatic fluid tracking into the intra and retroperitoneal soft tissue tissues. 3. No intra or extrahepatic biliary ductal dilation or evident choledocholithia sis. 4. Increased signal in the dependent lower lobes which could represent atelecta sis or pneumonia.
--- NOTE | ~2024-04-08 | CT_ITS ---
EXAMINATION: CT abdomen pelvis w con DATE: 04/14/2024 08:33 INDICATION: Leukocytosis, tachycardia, pancreatitis TECHNIQUE: Computed tomography (CT) of the abdomen and pelvis was performed with 100 mL Omnipaque-350 intravenous contrast. Automated exposure control and iterative reconstruction technique were employe d. The dose-length product was 776.53 mGy-cm. COMPARISON: 04/11/2024 FINDINGS: Small left pleural effusion with partial collapse of the left lower lobe. There is additional mild de pendent and basilar atelectasis in the right lower lobe. Heart size is normal. Distal tip of a centra l venous catheter near the superior cavoatrial junction. No pericardial effusion. Sludge and gallston es in the dependent aspect of the normal-appearing gallbladder. Liver, spleen, bilateral adrenal glan ds and kidneys are normal. Continued increase in the amount of nonloculated peripancreatic and more w idespread retroperitoneal fluid and stranding which extends into the root of mesentery at the bilater al anterior pararenal spaces and paracolic gutters. Pancreas is otherwise unremarkable with homogeneo us parenchymal enhancement and no regions concerning for hemorrhage or necrosis. Small amount of free fluid in the pelvis. No abscess or free intraperitoneal gas. Bowels including the appendix are lelo l. Bladder, anteverted uterus and bilateral ovaries are unremarkable. There is increased prominence o f the bilateral parametrial vessels and gonadal veins which can be seen with pelvic venous congestion syndrome. Vascular structures otherwise unremarkable with no evident thrombosis, aneurysm or stenosi s. No pathologically enlarged abdominal or pelvic lymphadenopathy. Bones are unremarkable. IMPRESSION: 1. Continued progression in nonloculated peripancreatic fluid and stranding consistent with acute int erstitial pancreatitis with no abscess, necrosis or hemorrhagic transformation. 2. Small amount of likely reactive ascites in the pelvis. 3. Unchanged small left pleural effusion with partial collapse left lower lobe. Reviewed, dictated and finalized at location L. OSAL DIRECTOR IMPRESSION: 1. Continued progression in nonloculated peripancreatic fluid and stranding con sistent with acute interstitial pancreatitis with no abscess, necrosis or hemor rhagic transformation. 2. Small amount of likely reactive ascites in the pelvis. 3. Unchanged small left pleural effusion with partial collapse left lower lobe.
--- NOTE | ~2024-04-08 | CT_ITS ---
EXAMINATION: CTA chest PE abdomen pel DATE: 04/08/2024 10:42 INDICATION: Chest and abdominal pain. Back pain. Transaminitis. TECHNIQUE: Computed tomography (CT) pulmonary angiogram of the chest was performed with 100 mL Omnipa que-350 intravenous contrast. Additional 3D reconstructions utilizing coronal maximum intensity proje ction (MIP) were performed. CT of the abdomen and pelvis was performed with intravenous contrast util izing the same contrast bolus following a short delay. Automated exposure control and iterative recon struction technique were employed. The dose-length product was 1255.84 mGy-cm. COMPARISON: None FINDINGS: Chest: No pulmonary embolism. Mosaic attenuation in the bilateral lower lobes with groundglass opacities wit h some peripheral subsegmental lucent lesions consistent with air trapping related to small airway di sease. No septal line thickening to suggest pulmonary edema. Heart size is normal. No pericardial eff usion. Thoracic aorta is normal in caliber with no dissection. No pathologically enlarged thoracic ly mphadenopathy. Bones are unremarkable. Abdomen/pelvis: Calcification along the posterior medial wall of the nondilated gallbladder which could represent sma ll gallstones or mural calcification. No evident choledocholithiasis or intra or extra hepatic biliar y ductal dilation. Liver, spleen, bilateral adrenal glands and kidneys are normal. There is prominent retroperitoneal peripancreatic stranding and nonloculated fluid which extends caudally along the vladimir t of mesentery and in the left and right anterior pararenal spaces consistent with acute interstitial pancreatitis. There is homogeneous parenchymal enhancement the pancreas with no evident necrosis. No organized abscess. There is fluid in a few nondilated loops of small bowel which could reflect secon ellie reactive ileus. The colon is largely decompressed. Normal appendix. Bladder, anteverted uterus a nd bilateral adnexa are unremarkable. Small amount of likely reactive free fluid in the cul-de-sac. N o pathologically enlarged abdominal or pelvic lymphadenopathy. This is vascular in the abdomen and pe lvis is unremarkable. Bones are unremarkable. IMPRESSION: 1. Acute interstitial pancreatitis with prominent nonloculated acute peripancreatic fluid collections and stranding. 2. Tiny gallstones versus porcelain gallbladder with mural calcification along the dependent wall of the otherwise normal gallbladder. No evident choledocholithiasis or intra or extra hepatic biliary du ctal dilation. 3. Mild dependent atelectasis in the lower lobes. No pulmonary embolism or other acute cardiopulmonar y disease. Reviewed, dictated and finalized at location B. BASE TECHNICIAN IMPRESSION: 1. Acute interstitial pancreatitis with prominent nonloculated acute peripancre atic fluid collections and stranding. 2. Tiny gallstones versus porcelain gallbladder with mural calcification along the dependent wall of the otherwise normal gallbladder. No evident choledocholi thiasis or intra or extra hepatic biliary ductal dilation. 3. Mild dependent atelectasis in the lower lobes. No pulmonary embolism or othe r acute cardiopulmonary disease.
--- NOTE | ~2024-04-08 | US_ITS ---
EXAMINATION: US pelvic complete DATE: 04/09/2024 11:36 INDICATION: Abnormal uterine bleeding TECHNIQUE: Multiple transabdominal sonographic images of the pelvis were obtained. COMPARISON: None. FINDINGS: The anteverted uterus measures 10.4 x 4.7 x 5.2 cm. The endometrial complex measures 3 mm in thickne ss. The right ovary measures 3.4 x 2.9 x 2.4 cm. The left ovary measures 1.6 x 1.5 x 1.5 cm. Vascular flow identified in both ovaries on color Doppler. There is a small amount of anechoic likely physiol ogic free fluid in the cul-de-sac. free fluid in the pelvis. IMPRESSION: 1. Unremarkable pelvic ultrasound. Reviewed, dictated and finalized at location A. TAL MEDIA PLANNER
--- NOTE | ~2024-04-08 | CT_ITS ---
CT abdomen pelvis w con Ordering provider: Tato Warner MD History: 29 years Female with . PERSISTENT PAIN, PANCREATITIS . Comparison: April 14, 2024 Technique: CT abdomen and pelvis with IV and without oral contrast. Automated exposure control and it erative reconstruction technique were employed. The dose-length product was 1049.19 mGy-cm. 100 mL Om nipaque 350 was given IV. Findings: VISUALIZED LOWER CHEST: Left basilar atelectasis versus pneumonia with moderate pleural effusion. UPPER ABDOMINAL ORGANS: Liver: Slight hepatomegaly. Gallbladder: Gallbladder sludge. Spleen: Borderline splenomegaly. Stomach/duodenum: Normal. Pancreas: Pancreatitis is again demonstrated with surrounding multiple small collections extending in to the left paracolic gutter and in the mesentery. The largest measures 5.2 cm in the left paracolic gutter. Collections are also extending medial to the spleen and adjacent to the diaphragm. Adrenals: Normal. Kidneys: Normal. PELVIC ORGANS: The bladder is normal. BOWEL AND MESENTERY: Colon: No evidence of diverticulitis.. The descending colon is adjacent to an inflammatory collection in the proximal part. No evidence of appendicitis. Small Bowel: Dilated small bowel loops are seen in the pelvis suggestive of ileus. Peritoneum/mesentery: No free air. Minimal Free fluid is seen in the pelvis. No mesenteric lymphadeno thalia. RETROPERITONEUM: Normal aorta. No retroperitoneal lymphadenopathy. Prominent veins around the uterus which may indicate pelvic congestion syndrome. MUSCULOSKELETAL: Superficial soft tissues: The superficial soft tissues are normal. Bones: Normal spine. IMPRESSION: 1. Pancreatitis with multiple collections seen around the pancreas extending to the area of the left adrenal gland, left paracolic gutter and in the mesentery 2. Dilated bowel loops in the pelvis which may indicate ileus. Follow-up advised. 3. Free fluid in the pelvis. 4. Slight splenomegaly. Slight hepatomegaly. Reviewed, dictated and finalized at location A. IMPRESSION: 1. Pancreatitis with multiple collections seen around the pancreas extending t o the area of the left adrenal gland, left paracolic gutter and in the mesenter y 2. Dilated bowel loops in the pelvis which may indicate ileus. Follow-up advis ed. 3. Free fluid in the pelvis. 4. Slight splenomegaly. Slight hepatomegaly.
--- NOTE | ~2024-04-08 | XR_ITS ---
CHEST RADIOGRAPH CLINICAL HISTORY: cough . COMPARISON: 04/08/2024 TECHNIQUE: Single portable view of the chest. FINDINGS Right upper extremity PICC line identified with its tip projecting over the cavoatrial junction. The remainder of the cardiomediastinal silhouette is otherwise unremarkable. Increased interstitial markings are identified bilaterally, findings suggesting mild pulmonary vascul ar congestion. Hazy opacification of the left hemidiaphragm suggesting a small left-sided pleural effusion. Limited appearance of the left medial hemidiaphragm for which a left lobe infiltrate is suspected. The right hemithorax is clear. IMPRESSION: Mild pulmonary vascular congestion with a left lower lobe infiltrate and likely adjacent effusion. Reviewed, dictated and finalized at location A. ER CLEANER
--- NOTE | ~2024-04-08 | XR_ITS ---
CHEST RADIOGRAPH CLINICAL HISTORY: CHEST PAIN . COMPARISON: None available TECHNIQUE: Single portable view of the chest. FINDINGS The cardiomediastinal silhouette is unremarkable. The lungs are clear. Visualized osseous structures and soft tissues are unremarkable. IMPRESSION: No focal infiltrate or effusion. Reviewed, dictated and finalized at location A. ICAL SUPERVISOR
--- NOTE | ~2024-04-08 | CT_ITS ---
EXAMINATION: CTA chest PE abdomen pel DATE: 04/11/2024 12:57 INDICATION: Tachycardia TECHNIQUE: Computed tomography (CT) pulmonary angiogram of the chest was performed with 100 mL Omnipa que-350 intravenous contrast. Additional 3D reconstructions utilizing coronal maximum intensity proje ction (MIP) were performed. CT of the abdomen and pelvis was performed with intravenous contrast util izing the same contrast bolus following a short delay. Automated exposure control and iterative recon struction technique were employed. The dose-length product was 1060.94 mGy-cm. COMPARISON: CT study dated 04/08/2024 and MRI dated 04/09/2024 FINDINGS: Chest: No pulmonary embolism. Sensitivity decreased in the segmental and more significantly in the subsegmen nahomy pulmonary arteries due to suboptimal contrast opacification of the pulmonary arteries and mild st reak and motion artifact. Small left pleural effusion and partial collapse of the left lower lobe. Th ere is additional moderate dependent atelectasis in the right lower lobe. Groundglass opacities throu ghout the remainder the lungs with some pulmonary vascular crowding and without septal line thickenin g and would favor additional atelectasis over pulmonary edema or pneumonia. Mild cardiomegaly. No per icardial effusion. Thoracic aorta is normal in caliber with no dissection. No pathologically enlarged thoracic lymphadenopathy. Bones are unremarkable. Abdomen/pelvis: Again seen is prominent nonloculated peripancreatic fluid and associated stranding. This extends caud ally along the mesentery as well as the bilateral anterior pararenal spaces and lateral paracolic gut ters. Small amount of ascites surrounding the liver, spleen as well as in the pelvis. There is a grad ient of increased density of the fluid at the cul-de-sac consistent with complex ascites sits in sett ing of hemoperitoneum or peritonitis. No loculated abscess or free intraperineal gas. Tiny high attenuation gallstones along the dependent wall of the otherwise normal gallbladder with no dilation or wall thickening to suggest acute cholecystitis. Liver, spleen, bilateral adrenal glands and kidneys are normal. There is homogeneous parenchymal enhancement the pancreas with no evident nec rosis. No bowel obstruction. Normal appendix. Bladder, anteverted uterus and bilateral adnexa are unr emarkable. No pathologically enlarged abdominal or pelvic lymphadenopathy. Bones are unremarkable. IMPRESSION: 1. No evident pulmonary embolism. Sensitivity mildly decreased in the segmental and more prominently in the subsegmental pulmonary arteries due to is suboptimal opacification of the pulmonary arteries a s well as small amount of respiratory and streak artifact. 2. Small left pleural effusion with partial collapse of the left lower lobe and additional atelectasi s in the right lower lobe. 3. Interval progression of nonloculated peripancreatic fluid and extensive stranding consistent with acute interstitial pancreatitis. 4. Small amount of ascites in the abdomen and pelvis with increased density of the fluid in the depen dent cul-de-sac suggesting complex/exudative ascites which could be seen with small amount of hemoper itoneum or peritonitis. Reviewed, dictated and finalized at location B. [employer] CAL[employer]RATOR IMPRESSION: 1. No evident pulmonary embolism. Sensitivity mildly decreased in the segmental and more prominently in the subsegmental pulmonary arteries due to is suboptim al opacification of the pulmonary arteries as well as small amount of respirato ry and streak artifact. 2. Small left pleural effusion with partial collapse of the left lower lobe and additional atelectasis in the right lower lobe. 3. Interval progression of nonloculated peripancreatic fluid and extensive stra nding consistent with acute interstitial pancreatitis. 4. Small amount of ascites in the abdomen and pelvis with increased density of the fluid in the dependent cul-de-sac suggesting complex/exudative ascites whic h could be seen with small amount of hemoperitoneum or peritonitis.
--- NOTE | 2024-04-08 09:03 | ECG_ITS ---
Test Date: 2024-04-08 09:15:58 Measurements Intervals Craig Rate: 87 P: 62 OR: 120 QRS: 34 QRSD: 86 T: 29 QT: 350 QTc: 422 Interpretive Statements SINUS RHYTHM BORDERLINE ST-T WAVE ABNORMALITY- INFERIOR LEADS BASELINE ARTIFACT- I, II, III, AVR, AVL, AVF, V1-V6 BORDERLINE ECG No previous ECG available for comparison Electronically Signed On 04-08-2024 10:32:19 LOSS CONTROL CONSULTANT by Geremias Garcia D.O.
[2024-04-08 09:21] LABS: Basophils Percent Auto 0.3 % (0.2-1.2); Eosinophils Absolute Auto 0.1 K/mm3 (0-0.3); Eosinophils Percent Auto 0.5 % (0-4.4); Hematocrit 42.3 % (37.0-47.0); Hemoglobin 13.2 g/dL (12.0-15.0); Immature Granulocyte Absolute 0.04 K/mm3 (0.00-0.031); Immature Granulocyte Percent A 0.4 % (0-0.5); Lymphocytes Absolute Auto 0.61 K/mm3 (0.9-3.2); Lymphocytes Percent Auto 6.5 % (18.3-44.2); Mean Corpuscular HGB Conc 31.2 g/dl (32-36); Mean Corpuscular Hemoglobin 25.1 pg (26-34); Mean Corpuscular Volume 80.6 fl (80-100); Mean Platelet Volume 10.1 fl (7.4-10.4); Monocytes Absolute Auto 0.3 K/mm3 (0.1-0.6); Monocytes Percent Auto 2.7 % (2.6-8.5); Neutrophils Absolute Auto 8.4 K/mm3 (1.3-6.7); Neutrophils Percent Auto 89.6 % (45.5-73.1); Platelet Count Result 179 k/mm3 (150-375); Red Blood Count 5.25 M/mm3 (4.2-5.4); Red Cell Distribution Width 17.2 % (11.5-14.5); White Blood Count 9.4 K/mm3 (4.5-10.0)
[2024-04-08 09:42] LABS: Alanine Aminotransferase 412 U/L (6-35); Albumin Level 4.1 g/dL (3.5-5.1); Alkaline Phosphatase 234 U/L (38-126); Anion Gap 13 mmol/L (4-12); Aspartate Amino Transferase 196 U/L (14-36); Bilirubin,Total 5.5 mg/dL (0.2-1.3); Blood Urea Nitrogen 12 mg/dL (7-17); Calcium 8.8 mg/dL (8.4-10.2); Carbon Dioxide 20 mmol/L (22-30); Chloride 107 mmol/L (98-107); Estimated CRCL calculation 110 ml/min; Estimated Glomerular Filt Rate > 60; Glucose 167 mg/dL (65-110); Potassium 4.1 mmol/L (3.4-5.0); Sodium 140 mmol/L (137-145)
--- NOTE | 2024-04-08 09:43 | ED.CHESTPAIN ---
HPI - Chest Pain General Chief Complaint: Chest Pain Stated Complaint: abd pain, lower back pain Time Seen by Provider: 04/08/24 09:08 Source: patient Mode of arrival: ambulatory Limitations: no limitations History of Present Illness HPI narrative: This is a 29-year-old female that presents to the emergency department for chest pain, back pain, epigastric pain. Ongoing intermittently over the last couple of weeks. Reports associated nausea and vomiting. Denies fevers. Related Data Home Medications ?Medication ?Instructions ?Recorded ?Confirmed ?Last Taken ?Type lidocaine 5 % topical patch 1 patch transdermal Q24H PRN back 04/08/24 04/08/24 04/07/24 History pain naproxen 500 mg tablet 500 mg PO BID PRN pain 04/08/24 04/08/24 04/07/24 History Allergies Allergy/AdvReac Type Severity Reaction Status Date / Time alprazolam (From Xanax) Allergy Hives Verified 04/08/24 09:07 Review of Systems Review of Systems: CONSTITUTIONAL: Denies fever CARDIOVASCULAR: Reports chest pain RESPIRATORY: Denies dyspnea. GASTROINTESTINAL: Reports abdominal pain, nausea, vomiting All systems reviewed & are unremarkable except as noted in HPI and below PMFSH Past Medical History Medical History (Updated 04/08/24 @ 16:34 by Jimmy Blevins MD) Nausea Upper abdominal pain Gallstone pancreatitis Overweight (BMI 25.0-29.9) Anxiety and depression Suppression of menses Encounter for removal of intrauterine contraceptive device Anxiety Surgical History Surgical History H/O gynecological procedure mirena iud insertion - 09/19/2020 Mirena IUD removal 04/07/23 Family History Family History Mother History of blood clots Other Acute myocardial infarction Hypertension Renal failure Social History Social History Smoking status: Never smoker Second hand tobacco smoke exposure: No Alcohol intake: never Substance use: current Substance use type: marijuana Other substance usage details: daily Do You Feel Safe in your Home?: Yes Lack of Transportation: No Lack of Food: Never True Current Housing: I Have Housing Concerned About Future Housing: No Difficulty Paying Gas/Electric Bills: No Difficulty Paying for Meds: No Currently Unemployed: No Education: High School Diploma/GED Difficulty w/ Childcare or Family Care: No Living arrangements: with family Occupation/Education: occupation 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 HEAD: Normocephalic, atraumatic. EYES: EOMI. Scleral icterus CHEST: Clear to auscultation. No respiratory distress. No wheezes rales or rhonchi HEART: Regular rate and rhythm. No murmur heard. Normal peripheral pulses. ABDOMEN: Soft, nondistended, normal active bowel sounds. Tender to palpation in the epigastrium and right upper quadrant EXTREMITIES: Normal range of motion. No edema. SKIN: Warm, dry, no rash. NEURO: No focal deficits. Alert and oriented x3. PSYCH: Normal mood and affect Course Course Emergency Course: Patient updated on her workup and need for admission Consultations Consultation #1: Spoke with hospitalist about patient and workup who accepts admission Date: 04/08/24 Consultation #2: Spoke with general surgery who will consult Date: 04/08/24 Consultation #3: Spoke with GI who will consult Date: 04/08/24 Vital Signs Vital signs: Vital Signs Temperature 97.8 F 04/08/24 08:54 Pulse Rate 88 04/08/24 08:54 Respiratory Rate 21 H 04/08/24 08:54 Blood Pressure 125/73 04/08/24 08:54 Pulse Oximetry 100 04/08/24 08:54 Oxygen Delivery Room Air 04/08/24 08:54 Temperature 97.6 F 04/08/24 16:00 Pulse Rate 66 04/08/24 16:00 Respiratory Rate 16 04/08/24 16:00 Blood Pressure 117/60 04/08/24 16:00 Pulse Oximetry 100 04/08/24 16:00 Oxygen Delivery Room Air 04/08/24 13:39 MDM - Chest Pain MDM Narrative Medical decision making narrative: Patient presents the emergency department for chest pain, back pain, abdominal pain. She is afebrile and nontoxic appearing. Her vitals are stable. Cbc without leukocytosis. Metabolic panel with hyperbilirubinemia, transaminitis. Lipase is elevated at greater than 40,000. EKG without concerning changes and baseline troponin is negative. D-dimer elevated, CTA of the chest obtained. This shows acute interstitial pancreatitis with prominent non loculated peripancreatic fluid collections. Tiny gallstones, otherwise normal-appearing gallbladder. Patient updated on her workup and need for admission. Spoke with hospitalist who accepts admission. GI and General surgery will consult Differential Diagnosis Differential diagnosis: Likely stable angina, atypical chest pain, costochondritis, biliary colic and other (Pneumonia, pancreatitis, GERD) Lab Data Attestation: I reviewed the patient's lab results. 04/08/24 09:15 04/08/24 09:15 Labs: Lab Results 04/08/24 04/08/24 04/08/24 Range/Units 09:15 10:12 12:09 WBC 9.4 (4.5-10.0) K/mm3 RBC 5.25 (4.2-5.4) M/mm3 Hgb 13.2 (12.0-15.0) g/dL Hct 42.3 (37.0-47.0) % MCV 80.6 (80-100) fl MCH 25.1 L (26-34) pg MCHC 31.2 L (32-36) g/dl RDW 17.2 H (11.5-14.5) % Plt Count 179 (150-375) k/mm3 MPV 10.1 (7.4-10.4) fl Immature Gran % (Auto) 0.4 (0-0.5) % Neut % (Auto) 89.6 H (45.5-73.1) % Lymph % (Auto) 6.5 L (18.3-44.2) % [place] % (Auto) 2.7 (2.6-8.5) % Eos % (Auto) 0.5 (0-4.4) % Baso % (Auto) 0.3 (0.2-1.2) % Lymph # (Auto) 0.61 L (0.9-3.2) K/mm3 [place] # (Auto) 0.3 (0.1-0.6) K/mm3 Eos # (Auto) 0.1 (0-0.3) K/mm3 Baso # (Auto) 0.0 (0.0-0.1) K/mm3 Abs Immat Gran (auto) 0.04 H (0.00-0.031) K/mm3 Absolute Neuts (auto) 8.4 H (1.3-6.7) K/mm3 Absolute Nucleated RBC 0.000 (0.0-0.012) K/mm3 Nucleated RBC % 0.0 (0.0-0.2) % PT 13.4 (11.1-14.7) Seconds INR 1.0 APTT 197.0 H* 196.9 H* (22.3-36.8) Seconds D-Dimer 1.63 H (<0.48) ug/mL Sodium 140 (137-145) mmol/L Potassium 4.1 (3.4-5.0) mmol/L Chloride 107 (98-107) mmol/L Carbon Dioxide 20 L (22-30) mmol/L Anion Gap 13 H (4-12) mmol/L BUN 12 (7-17) mg/dL Creatinine 0.64 L (0.7-1.0) mg/dL Estim Creat Clear Calc 110 ml/min Estimated GFR > 60 (59 - ) Glucose 167 H (65-110) mg/dL Calcium 8.8 (8.4-10.2) mg/dL Total Bilirubin 5.5 H (0.2-1.3) mg/dL AST 196 H (14-36) U/L ALT 412 H (6-35) U/L Alkaline Phosphatase 234 H (38-126) U/L Troponin I < 0.012 < 0.012 (0.000-0.034) ng/mL Total Protein 8.0 (6.3-8.2) g/dL Albumin 4.1 (3.5-5.1) g/dL Lipase > 02662 H (23-300) U/L Imaging Data Radiologist's impression: ITS Impressions Chest X-Ray 04/08/24 09:40 IMPRESSION: No focal infiltrate or effusion. Chest/Abdomen/Pelvis CTA 04/08/24 10:45 IMPRESSION: 1. Acute interstitial pancreatitis with prominent nonloculated acute peripancreatic fluid collections and stranding. 2. Tiny gallstones versus porcelain gallbladder with mural calcification along the dependent wall of the otherwise normal gallbladder. No evident choledocholithiasis or intra or extra hepatic biliary ductal dilation. 3. Mild dependent atelectasis in the lower lobes. No pulmonary embolism or other acute cardiopulmonary disease. Critical Care Time Critical Care Time Critical Care Time: No Discharge Plan Discharge Clinical Impression: Transaminitis, Hyperbilirubinemia, Elevated partial thromboplastin time (PTT) Acute pancreatitis Qualifiers: Pancreatitis type: unspecified pancreatitis type Acute pancreatitis complication: unspecified Qualified Code(s): K85.90 - Acute pancreatitis without necrosis or infection, unspecified Cholelithiasis Qualifiers: Cholelithiasis location: gallbladder Cholecystitis presence: without cholecystitis Biliary obstruction: with biliary obstruction Qualified Code(s): K80.21 - Calculus of gallbladder without cholecystitis with obstruction Patient Disposition: Still a Patient Condition: Serious
[2024-04-08 09:46] LABS: Prothrombin Time 13.4 Seconds (11.1-14.7)
--- OUTSIDE RECORDS SUMMARY | 2024-04-08 09:49 | XMS_ITS | Clinical Summary ---
Author Organization [facility] Address [address] [place] [address] Care Team Providers Care Solder Making Supervisor Name Role Phone Unavailable Primary Care Provider Unavailabl e Encounters Date Type Department Care Team Description 03/30/2024 External Device Data [facility] ABSTRACTION Provider, Abstract 03/09/2024 External Device Data [facility] ABSTRACTION Provider, Abstract 03/03/2024 External Device Data [facility] ABSTRACTION Provider, Abstract from Last 3 Months Social History Tobacco Use Types Packs/Day Years [...] age to complete this topic PNEUMOCOCCAL VACCINE 0-49 YEARS Aged Out No longer eligible based on patient's age to complete this topic
--- OUTSIDE RECORDS SUMMARY | 2024-04-08 09:49 | XMS_ITS | CONTINUITY OF CARE DOCUMENT ---
Author Name sonuchantale sonuchantale Address Unknown Organization [facility] Address [address] [place] [address] Phone [phone] Care Team Providers Care Horse Identifier Name Role Phone Anival DOMINGUEZ, Radha Unavailable BORIS MCDONALD MD Unavailable PROBLEMS Condition Status Date Provider Notes Obesity active Zack Ahmedzai Anemia active Zack Ahmedzai Hyperlipidemia active Zack Ahmedzai DIZZINESS active Radha Florian MD Snoring completed - Radha Florian MD VICENTA--mild, attempting weight loss active Radha Florian MD Fast pulse completed - Radha Florian MD Dyspnea on exertion-- Echo E F 66%, mild TR, PASP 31 mmhg, 10/2021 active Radha Florian MD Chest pain--calcium score ze ro, 10/2021 active Radha Florian MD Family hx of CAD active Radha Florian MD ENCOUNTERS Date Type Provider Location Encounter Diag nosis - In-person encounter Office Visit Radha Florian MD [place] - In-person encounter Office Visit Radha Florian MD [facility] - In-person encounter Office Visit Radha Florian MD [facility] - In-person encounter Office Visit Radha Florian MD [facility] Chest pain--calcium score zero, yspnea on exertion-- Echo EF 66%, mild TR, PASP 31 mmhg, 10/2021Fast pulseSnoringOSA--mi ld, attempting weight loss - In-person encounter Office Visit Radha Florian MD [facility] Family hx of CADChest pain--calcium score zero, yspnea on exertion-- Echo EF 66%, mild TR, PASP 31 mmhg, IZZINESS VITAL SIGNS Date Observation Value Provider Body Mass Index (Ratio) 29.93 kg/m2 John Florian MD blood pressure, cuff size regular rret blood pressure, diastolic 74 mm[Hg] Ja rret blood pressure, systolic 112 mm[Hg] Jar ret pulse rate 85 /min [facility] oxygen saturation, oximetry 99 % [place] respiratory rate E&M 14 /min [place] weight E&M 169 [lb_av] [facility] y height E&M 63 [in_i] [facility] y Body Mass Index (Ratio) 31.00 kg/m2 John Florian MD blood pressure, diastolic 71 mm[Hg] Faith nkLogic blood pressure, systolic 101 mm[Hg] Georgette kLogic blood pressure, cuff size regular Ja rret blood pressure, diastolic 71 mm[Hg] Ja rret blood pressure, systolic 101 mm[Hg] Jar ret pulse rate 93 /min [place] y oxygen saturation, oximetry 98 % [facility] respiratory rate E&M 12 /min [facility] weight E&M 175 [lb_av] [place] y height [...] sertraline 50 mg tablet active Sol Ventimiglia [employer]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 omega 9-pya-rtl-fish oil 1,000 mg (120 mg-180 mg) capsule completed Take 1 capsule by mouth once a day - 9 Sol Ventimiglia COM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 SOCIAL HISTORY Date Observation Value Provider drug use no Zack Astorga alcohol use no Zack Astorga smoking status Never smoker Zack Astorga drug use no Sol Ventimig kaylin COM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 alcohol use no Sol Ventimig kaylin COM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 smoking status Never smoker Sol Ventim iglia COM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 social history reviewed E&M revi ewed - [...] Policy type / Coverage type Vanessa red republican ID UNITED [employer] 9 [id number] ADVANCE DIRECTIVES Name Date DISCUSSED - NO DECISION MADE TREATMENT PLAN Date Name Performer [id number],S, Radha Florian MD [id number],S, Radha Florian MD [id number],S, Radha Florian MD [id number],C,LDL 164 Jayde Florian MD [id number],S, Sol Venti miglia [facility] [id number],B,H as lost 18lbs since last visit. Will renew phentermine Sol Ventimiglia [facility] [id number],S,update lipid panel Sol Ventimiglia [facility] [id number],C,will update l abs Sol Ventimiglia [facility] [id number],S,H as noted more often unclear if related to iron deficiency or medication. We will update labs. We will also have her cut her zoloft dose back. She was encouraged to remain well hydrated. EKG NSR today. Will f/u in one month or sooner if needed. Sol Ventimiglia [facility] [id number],S, Zack Ahmedza i [id number],S, Zack Ahmedza i [id number],S, Zack Ahmedza i [id number],S, Zack Ahmedza i [id number],W, Radha Florian MD [id number],S, Radha Florian MD [id number],W, Radha Florian MD [id number],S, Radha Florian MD Cardiology Zack Astorga Cardiology Zack Ahmedzai Cardiology Zack Ahmedzai Cardiology Zack Ahmedzai Cardiology Zack Ahmedzai Telehealth Radha Florian MD Telehealth Radha Florian MD Telehealth Radha Florian MD Telehealth:LDL 164 Radha Florian MD Cardiology Sol Ventimigl ia COM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 Cardiology:Has lost 18lbs since last visit. Will renew phentermine Sol Ventimiglia COM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 Cardiology:update lipid panel Am belkis Ventimiglia COM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 Cardiology:will update labs Martir da Ventimiglia COM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 Cardiology:Has noted more often unclear if related to iron deficiency or medication. We will update labs. We will also have her cut her zoloft dose back. She was encouraged to remain well hydrated. EKG NSR today. Will f/u in one month or sooner if needed. Sol Ventimiglia COM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 Cardiology Zack Ahmedzai Cardiology Zack Ahmedzai Cardiology [...]
--- OUTSIDE RECORDS SUMMARY | 2024-04-08 09:49 | XMS_ITS | Data Portability ---
Author Organization [facility] Address [address] [place] [address] Assessment No assessment recorded. Plan of Treatment Reminders Order Date Submit Date Provider Last Modified By Organization Details Last Modified Time Details Appointments None recorded . Lab TSH + free T4, serum 2021 [facility], [address] [place] [address], [facility] [address], [place], [address], 10:12:56 vitamin D, 25-hydro xy, total, serum 2021 [facility], [address] [place] [address], [facility] [address], [place], [address], 10:13:00 vitamin B12 + folate, serum or blood 2021 [facility], [address] [place] [address], [facility] [address], [place], [address], 10:12:59 lipid panel, serum 2021 [facility], [address] [place] [address], [facility] [address], [place], [address], 10:12:58 CMP, serum or plasma 2021 [facility], [address] [place], [place] [id number] Timmy, [facility] [address], [place], [address], 10:12:57 CK (creatin e kinase), total, serum 2021 [facility] CASTILLO, [address], [address], [place], [address], 10:13:01 HbA1c (hemoglo bin A1c), blood 2021 [facility] CASTILLO, [address], [address], [place], [address], 10:13:00 iron + total iron-bin ding capacity (TIBC), serum 2021 [facility] CAST[facility]O, [address], [address], [place], [address], 10:12:58 ferritin , serum or plasma 2021 [facility] CASTILLO, [address], [address], [place], [address], 10:13:05 CBC w/ auto diff 2021 022 [facility], [address], [address], [place], [address], 10:12:56 TSH, serum or plasma 2016 017 [facility], [address], [address], [place], [address], 7 19:08:10 CBC 2016 017 [facility], [address] Warner, [address], [place], [address], 7 19:08:08 lipid panel, serum 2016 017 [facility], [address] [facility], [address], [place], [address], 7 19:08:09 CMP, serum or plasma 2016 017 [facility], [address] [facility], [address], [place], [address], 7 19:08:09 HbA1c (hemoglo bin A1c), blood 2016 017 [facility], [address] [facility], [address], [place], [address], 19:08:11 Referral physical therapis t referral - low back pain since the delivery of her babies . Please eval and treat . Thank you 2021 [facility], [address] [place], [address], 19:59:05 cardiolo gist referral - Strong family history of heart disease . She is worried , wants to be around for her kids , non-smok er . Please evaluate and treat prn . Thank you 2021 [place], [address] [address] [place], [address], [address], 16:06:47 Procedures None recorded . Surgeries None recorded . Imaging None recorded . Medication Orders cholecal ciferol (vitamin D3) 25 mcg (1,000 unit) tablet [id number] [facility] [address] [id number], [address], [place], [place], [id number], 16:54:29 ezetimib e 10 mg tablet [address] [facility]36, [address], [place], [place], [id number], 2 16:54:29 sertrali ne 100 mg tablet [address] [facility]66404, [address], [place], [place], [id number], 2 17:55:43 citalopr am 40 mg tablet [address] [facility]11336, [address], [place], [place], [id number], 2 11:27:06 nortript yline 10 mg capsule [address] [facility] #11975, [address], [place], [place], [id number], 2 11:27:33 metronid azole 500 mg tablet [address] [facility] #00456, [address], [place], [place], [id number], 2 11:27:27 citalopr am 20 mg tablet [address] [facility] #00234, [address], [place], [place], [id number], 2 11:27:03 metronid azole 500 mg tablet [address] [facility] #79915, [address], [place], [place], [id number], 2 11:27:27 betameth asone dipropio kenyon 0.05 % topical ointment 2016 [facility], [address], [place], [place], [id number], 11:26:03 Patient TargetsNo targets recorded. Patient Instructions Encounter Date Encounter Id Patient Instructions Last Modified By Organization Details Last Modified Time 04/07/2016 [id number] her hands have flared : advised avoiding harsh detergents and anti-bacterail soaps , use eucerin cream hourly nancy Not available 04/08/2016 13:57:01 06/02/2016 [id number] we discussed a med to lower chol , she will try diet first . reviewed diet with her nancy Not available 06/03/2016 13:56:13 08/07/2016 [id number] counselled ,,, nancy Not availabl e 08/07/2016 14:46:12 denies snoring , no apnea episodes [id number] Not available 08/07/2016 14:46:31 10/29/2021 [id number] reviewed diet to decrease fats and carbs . does not drink much alcohol . 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) [address] [facility] [place], [address], 04/11/2016 19:08:08 04/10/19 17 04/10/2016 CBC hemoglobin 13.5 g/dL 11.1-1 5.9 Not Available [facility] ([facility]) [address] [facility] [place], [address], 04/11/2016 19:08:08 04/10/19 17 04/10/2016 CBC hematocrit 40.3 % 34.0-4 6.6 Not Available [facility] ([facility]) [address] [facility] [place], [address], 04/11/2016 19:08:08 04/10/19 17 04/10/2016 CBC MCV 84 fL 79-97 Not Available [facility] ([facility]) [address] [facility] [place], [address], 04/11/2016 19:08:08 04/10/19 17 04/10/2016 CBC MCH 28.0 pg 26.6-3 3.0 Not Available [facility] ([facility]) [address] [facility] [place], [address], 04/11/2016 19:08:08 04/10/19 17 04/10/2016 CBC MCHC 33.5 g/dL 31.5-3 5.7 Not Available [facility] ([facility]) [address] [facility] [place], [address], 04/11/2016 19:08:08 04/10/19 17 04/10/2016 CBC RDW 13.4 % 12.3-1 5.4 Not Available [facility] ([facility]) [address] [place], [address], 04/11/2016 19:08:08 04/10/19 17 04/10/2016 CBC platelets 219 x10e3 /uL 150-37 9 Not Available [facility] ([facility]) [address] [place], [address], 04/11/2016 19:08:08 04/10/19 17 04/10/2016 CBC neutrophils 66 % Not Avai lable [facility] ([facility]) [address] [place], [address], 04/11/2016 19:08:08 04/10/19 17 04/10/2016 CBC lymphs 27 % Not Available [facility] ([facility]) [address] [place], [address], 04/11/2016 19:08:08 04/10/19 17 04/10/2016 CBC monocytes 5 % Not Availa ble [facility] ([facility]) [address] [place], [address], 04/11/2016 19:08:08 04/10/19 17 04/10/2016 CBC eos 2 % Not Available [facility] ([facility]) [address] [place], [address], 04/11/2016 19:08:08 04/10/19 17 04/10/2016 CBC basos 0 % Not Available [facility] (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) [address] [place], [address], 04/11/2016 19:08:08 04/10/19 17 04/10/2016 CBC neutrophils (absolute) 7.6 x10e3 /uL 1.4-7. 0 above high normal Not Available [facility] ([facility]) [address] [facility], [place], [address], 04/11/2016 19:08:08 04/10/19 17 04/10/2016 CBC lymphs (absolute) 3.2 x10e3 /uL 0.7-3. 1 above high normal Not Available [facility] ([facility]) [address] [facility], [place], [address], 04/11/2016 19:08:08 04/10/19 17 04/10/2016 CBC monocytes(ab solute) 0.6 x10e3 /uL 0.1-0. 9 Not Available [facility] ([facility]) [address] [facility], [place], [address], 04/11/2016 19:08:08 04/10/19 17 04/10/2016 CBC eos (absolute) 0.3 x10e3 /uL 0.0-0. 4 Not Available [facility] ([facility]) [address] [facility], [place], [address], 04/11/2016 19:08:08 04/10/19 17 04/10/2016 CBC baso (absolute) 0.0 x10e3 /uL 0.0-0. 2 Not Available [facility] ([facility]) [address] [facility], [place], [address], 04/11/2016 19:08:08 04/10/19 17 04/10/2016 CBC immature granulocytes 0 % Not Available [facility]) [address] [facility], [place], [address], 04/11/2016 19:08:08 04/10/19 17 04/10/2016 CBC immature grans (abs) 0.0 x10e3 /uL 0.0-0. 1 Not Available [facility] (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) [address] [facility] [place], [address], 04/11/2016 19:08:08 04/10/19 17 04/10/2016 CMP, serum or plasm a glucose, serum 78 mg/dL 65-99 Not Available [facility] ([facility]) [address] [facility] [place], [address], 04/11/2016 19:08:09 04/10/19 17 04/10/2016 CMP, serum or plasm a BUN 7 mg/dL 6-20 Not Available [facility] ([facility]) [address] [facility] [place], [address], 04/11/2016 19:08:09 04/10/19 17 04/10/2016 CMP, serum or plasm a creatinine, serum 0.60 mg/dL 0.57-1 .00 Not Available [facility] ([facility]) [address] [facility] [place], [address], 04/11/2016 19:08:09 04/10/19 17 04/10/2016 CMP, serum or plasm a eGFR if nonafricn AM 130 mL/mi n/1.7 3 >59 Not Available [facility] ([facility]) [address] [facility] [place], [address], 04/11/2016 19:08:09 04/10/19 17 04/10/2016 CMP, serum or plasm a eGFR if africn AM 150 mL/mi n/1.7 3 >59 Not Available [facility] ([facility]) [address] [facility] [place], [address], 04/11/2016 19:08:09 04/10/19 17 04/10/2016 CMP, serum or plasm a BUN/creatini ne ratio 12 8-20 Not Available [facility] ([facility]) [address] [place], [address], 04/11/2016 19:08:09 04/10/19 17 04/10/2016 CMP, serum or plasm a sodium, serum 138 mmol/ L 134-14 4 Not Available [facility] ([facility]) [address] [place], [address], 04/11/2016 19:08:09 04/10/19 17 04/10/2016 CMP, serum or plasm a potassium, serum 3.6 mmol/ L 3.5-5. 2 Not Available [facility] ([facility]) [address] [place], [address], 04/11/2016 19:08:09 04/10/19 17 04/10/2016 CMP, serum or plasm a chloride, serum 98 mmol/ L 96-106 Not Available [facility] ([facility]) [address] [place], [address], 04/11/2016 19:08:09 04/10/19 17 04/10/2016 CMP, serum or plasm a carbon dioxide, total 20 mmol/ L 18-29 Not Available [facility] ([facility]) [address] [place], [address], 04/11/2016 19:08:09 04/10/19 17 04/10/2016 CMP, serum or plasm a calcium, serum 9.4 mg/dL 8.7-10 .2 Not Available [facility] ([facility]) [address] [place] [address], [address], 04/11/2016 19:08:09 04/10/1904/10/2016 CMP, serum or plasm a protein, total, serum 7.2 g/dL 6.0-8. 5 Not Available [facility] ([facility]) [address] [place], [address], 04/11/2016 19:08:09 04/10/19 17 04/10/2016 CMP, serum or plasm a albumin, serum 4.7 g/dL 3.5-5. 5 Not Available [facility] ([facility]) [address] [facility] [place], [address], 04/11/2016 19:08:04/10/1904/10/2016 CMP, serum or plasm a globulin, total 2.5 g/dL 1.5-4. 5 Not Available [facility] ([facility]) [address] [facility], [place], [address], 04/11/2016 19:08:04/10/1904/10/2016 CMP, serum or plasm a [...] 2.2 1.2 - 2.2 Not Available [facility] ([facility]) [address] [facility], [place], [address], 04/11/2016 19:08:04/10/1904/10/2016 CMP, serum or plasm a bilirubin, total 0.4 mg/dL 0.0-1. 2 Not Available [facility] ([facility]) [address] [facility], [place], [address], 04/11/2016 19:08:09 04/10/1904/10/2016 CMP, serum or plasm a alkaline phosphatase, S 67 IU/L 39-117 Not Available [facility] ([facility]) [address] [facility] [place], [address], 04/11/2016 19:08:09 04/10/19 17 04/10/2016 CMP, serum or plasm a AST (SGOT) 12 IU/L 0-40 Not Available [facility] ([facility]) [address] [facility] [place], [address], 04/11/2016 19:08:09 04/10/19 17 04/10/2016 CMP, serum or plasm a ALT (SGPT) 14 IU/L 0-32 Not Available [facility] ([facility]) [address] [facility] [place], [address], 04/11/2016 19:08:09 04/10/19 17 04/10/2016 lipid panel , serum cholesterol, total 191 mg/dL 100-19 9 Not Available [facility] ([facility]) [address] [facility] [place], [address], 04/11/2016 19:08:09 04/10/19 17 04/10/2016 lipid panel , serum triglyceride s 204 mg/dL 0-149 above high normal Not Available [facility] ([facility]) [address] [facility] [place], [address], 04/11/2016 19:08:09 04/10/19 17 04/10/2016 lipid panel , serum HDL cholesterol 39 mg/dL >39 below low normal Not Available [facility] ([facility]) [address] [facility] [place], [address], 04/11/2016 19:08:09 04/10/19 17 04/10/2016 lipid panel , serum VLDL cholesterol kristen 41 mg/dL 5-40 above high normal Not Available [facility] ([facility]) [address] [facility] [place], [address], 04/11/2016 19:08:09 04/10/19 17 04/10/2016 lipid panel , serum LDL cholesterol calc 111 mg/dL 0-99 above high normal Not Available [facility] (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) [address] [facility], [place], [address], 04/11/2016 19:08:09 04/10/19 17 04/10/2016 lipid panel , serum LDL/HDL ratio 2.8 ratio _unit s 0.0-3. 2 LDL/H DL RATIO MEN WOMEN 1/2 AVG.R ISK 1.0 1.5 AVG.R ISK 3.6 3.2 2X AVG.R ISK 6.2 5.0 3X AVG.R ISK 8.0 6.1 Not Available [facility] ([facility]) [address] [facility], [place], [address], 04/11/2016 19:08:09 04/10/1904/11/2016 TSH, serum or plasm a TSH-icma 1.6 uu/mL REFER ENCE RANGE : PUBER LUDA CHILD ATIF AND ADULT S: 0.5 - 4.8 Not Available [facility] [address] [place] [address], [address], 04/11/2016 19:08:10 04/10/19 17 04/10/2016 HbA1c (hemo globi n A1c), blood hemoglobin A1C 5.1 % 4.8-5. 6 PRE-D IABET ES: 5.7 - 6.4 DIABE MAY: >6.4 GLYCE RADHA CONTR OL FOR ADULT S WITH DIABE MAY: <7.0 Not Available [facility] ([facility]) [address] [facility], [place], [address], 04/11/2016 19:08:10 09/05/19 22 09/05/2021 TSH+F REE T4 TSH 1.450 uIU/m L 0.450- 4.500 Not Available [facility] ([facility]) [address] [place], [address], 09/05/2021 10:12:56 09/05/19 22 09/05/2021 TSH+F REE T4 T4,free(dire ct) 1.20 NG/dL 0.82-1 .77 Not Available [facility] ([facility]) [address] [facility], [place], [address], 09/05/2021 10:12:56 09/05/19 22 09/05/2021 CBC WITH DIFFE RENTI AL/PL ATELE T WBC 7.3 x10e3 /uL 3.4-10 .8 Not Available [facility] ([facility]) [address] [facility], [place], [address], 09/05/2021 10:12:56 09/05/19 22 09/05/2021 CBC WITH DIFFE RENTI AL/PL ATELE T RBC 5.34 x10e6 /uL 3.77-5 .28 above high normal Not Available [facility] ([facility]) [address] [place], [address], 09/05/2021 10:12:56 09/05/19 22 09/05/2021 CBC WITH DIFFE RENTI AL/PL ATELE T hemoglobin 14.0 g/dL 11.1-1 5.9 Not Available [facility] ([facility]) [address] [place], [address], 09/05/2021 10:12:56 09/05/19 22 09/05/2021 CBC WITH DIFFE RENTI AL/PL ATELE T hematocrit 43.7 % 34.0-4 6.6 Not Available [facility] ([facility]) [address] [place], [address], 09/05/2021 10:12:56 09/05/19 22 09/05/2021 CBC WITH DIFFE RENTI AL/PL ATELE T MCV 82 fL 79-97 Not Available [facility] ([facility]) [address] [place], [address], 09/05/2021 10:12:56 09/05/19 22 09/05/2021 CBC WITH DIFFE RENTI AL/PL ATELE T MCH 26.2 pg 26.6-3 3.0 below low normal Not Available [facility] ([facility]) [address] [place], [address], 09/05/2021 10:12:56 09/05/19 22 09/05/2021 CBC WITH DIFFE RENTI AL/PL ATELE T MCHC 32.0 g/dL 31.5-3 5.7 Not Available [facility] ([facility]) [address] [place], [address], 09/05/2021 10:12:56 09/05/19 22 09/05/2021 CBC WITH DIFFE RENTI AL/PL ATELE T RDW 15.9 % 11.7-1 5.4 above high normal Not Available [facility] ([facility]) [address] [place], [address], 09/05/2021 10:12:56 09/05/19 22 09/05/2021 CBC WITH DIFFE RENTI AL/PL ATELE T platelets 222 x10e3 /uL 150-45 0 Not Available [facility] ([facility]) [address] [place], [address], 09/05/2021 10:12:56 09/05/19 22 09/05/2021 CBC WITH DIFFE RENTI AL/PL ATELE T neutrophils 68 % not estab. Not Available [facility] ([facility]) [address] [place], [address], 09/05/2021 10:12:56 09/05/19 22 09/05/2021 CBC WITH DIFFE RENTI AL/PL ATELE T lymphs 26 % not estab. Not Available [facility] ([facility]) [address] [facility] [place], [address], 09/05/2021 10:12:56 09/05/19 22 09/05/2021 CBC WITH DIFFE RENTI AL/PL ATELE T monocytes 5 % not estab. Not Available [facility] ([facility]) [address] [facility], [place], [address], 09/05/2021 10:12:56 09/05/19 22 09/05/2021 CBC WITH DIFFE RENTI AL/PL ATELE T eos 1 % not estab. Not Available [facility] ([facility]) [address] [place], [address], 09/05/2021 10:12:56 09/05/19 22 09/05/2021 CBC WITH DIFFE RENTI AL/PL ATELE T basos 0 % not estab. Not Available [facility] (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) [address] [place], [address], 09/05/2021 10:12:56 09/05/19 22 09/05/2021 CBC WITH DIFFE RENTI AL/PL ATELE T neutrophils (absolute) 4.9 x10e3 /uL 1.4-7. 0 Not Available [facility] ([facility]) [address] [place], [address], 09/05/2021 10:12:56 09/05/19 22 09/05/2021 CBC WITH DIFFE RENTI AL/PL ATELE T lymphs (absolute) 1.9 x10e3 /uL 0.7-3. 1 Not Available [facility] ([facility]) [address] [place], [address], 09/05/2021 10:12:56 09/05/19 22 09/05/2021 CBC WITH DIFFE RENTI AL/PL ATELE T monocytes(ab solute) 0.4 x10e3 /uL 0.1-0. 9 Not Available [facility] ([facility]) [address] [facility], [place], [address], 09/05/2021 10:12:56 09/05/19 22 09/05/2021 CBC WITH DIFFE RENTI AL/PL ATELE T eos (absolute) 0.1 x10e3 /uL 0.0-0. 4 Not Available [facility] ([facility]) [address] [facility], [place], [address], 09/05/2021 10:12:56 09/05/19 22 09/05/2021 CBC WITH DIFFE RENTI AL/PL ATELE T baso (absolute) 0.0 x10e3 /uL 0.0-0. 2 Not Available [facility] ([facility]) [address] [facility], [place], [address], 09/05/2021 10:12:56 09/05/19 22 09/05/2021 CBC WITH DIFFE RENTI AL/PL ATELE T immature granulocytes 0 % not estab. Not Available [facility] ([facility]) [address] [facility], [place], [address], 09/05/2021 10:12:56 09/05/19 22 09/05/2021 CBC WITH DIFFE RENTI AL/PL ATELE T immature grans (abs) 0.0 x10e3 /uL 0.0-0. 1 Not Available [facility] ([facility]) [address] [place], [address], 09/05/2021 10:12:56 09/05/19 22 09/05/2021 CBC WITH DIFFE RENTI AL/PL ATELE T NRBC STEAM TRAIN DRIVER Not Available [facility] (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) [address] [facility], [place], [address], 09/05/2021 10:12:56 09/05/19 22 09/05/2021 COMP. METAB OLIC PANEL (14) glucose 84 mg/dL 65-99 Not Available [facility] ([facility]) [address] [facility], [place], [address], 09/05/2021 10:12:57 09/05/19 22 09/05/2021 COMP. METAB OLIC PANEL (14) BUN 11 mg/dL 6-20 Not Available [facility] ([facility]) [address] [facility], [place], [address], 09/05/2021 10:12:57 09/05/19 22 09/05/2021 COMP. METAB OLIC PANEL (14) creatinine 0.64 mg/dL 0.57-1 .00 Not Available [facility] ([facility]) [address] [facility], [place], [address], 09/05/2021 10:12:57 09/05/19 22 09/05/2021 COMP. METAB OLIC PANEL (14) eGFR 124 mL/mi n/1.7 3 >59 Not Available [facility] ([facility]) [address] [facility], [place], [address], 09/05/2021 10:12:57 09/05/19 22 09/05/2021 COMP. METAB OLIC PANEL (14) BUN/creatini ne ratio 17 9-23 Not Available [facility] ([facility]) [address] [facility], [place], [address], 09/05/2021 10:12:57 09/05/19 22 09/05/2021 COMP. METAB OLIC PANEL (14) sodium 141 mmol/ L 134-14 4 Not Available [facility] ([facility]) [address] [facility] [place], [address], 09/05/2021 10:12:57 09/05/19 22 09/05/2021 COMP. METAB OLIC PANEL (14) potassium 4.5 mmol/ L 3.5-5. 2 Not Available [facility] ([facility]) [address] [facility] [place], [address], 09/05/2021 10:12:57 09/05/19 22 09/05/2021 COMP. METAB OLIC PANEL (14) chloride 101 mmol/ L 96-106 Not Available [facility] ([facility]) [address] [facility], [place], [address], 09/05/2021 10:12:57 09/05/19 22 09/05/2021 COMP. METAB OLIC PANEL (14) carbon dioxide, total 25 mmol/ L 20-29 Not Available [facility] ([facility]) [address] [facility] [place], [address], 09/05/2021 10:12:57 09/05/19 22 09/05/2021 COMP. METAB OLIC PANEL (14) calcium 10.0 mg/dL 8.7-10 .2 Not Available [facility] ([facility]) [address] [place], [address], 09/05/2021 10:12:57 09/05/19 22 09/05/2021 COMP. METAB OLIC PANEL (14) protein, total 7.9 g/dL 6.0-8. 5 Not Available [facility] ([facility]) [address] [facility] [place], [address], 09/05/2021 10:12:57 09/05/19 22 09/05/2021 COMP. METAB OLIC PANEL (14) albumin 4.8 g/dL 3.9-5. 0 Not Available [facility] ([facility]) [address] [place], [address], 09/05/2021 10:12:57 09/05/19 22 09/05/2021 COMP. METAB OLIC PANEL (14) globulin, total 3.1 g/dL 1.5-4. 5 Not Available [facility] ([facility]) [address] [place], [address], 09/05/2021 10:12:57 09/05/19 22 09/05/2021 COMP. METAB OLIC PANEL (14) A/G ratio 1.5 1.2-2. 2 Not Available [facility] ([facility]) [address] [place], [address], 09/05/2021 10:12:57 09/05/19 22 09/05/2021 COMP. METAB OLIC PANEL (14) bilirubin, total 0.4 mg/dL 0.0-1. 2 Not Available [facility] ([facility]) [address] [place], [address], 09/05/2021 10:12:57 09/05/19 22 09/05/2021 COMP. METAB OLIC PANEL (14) alkaline phosphatase 93 IU/L 44-121 Not Available [facility] ([facility]) [address] [place], [address], 09/05/2021 10:12:57 09/05/19 22 09/05/2021 COMP. METAB OLIC PANEL (14) AST (SGOT) 16 IU/L 0-40 Not Available [facility] ([facility]) [address] [place], [address], 09/05/2021 10:12:57 09/05/19 22 09/05/2021 COMP. METAB OLIC PANEL (14) ALT (SGPT) 22 IU/L 0-32 Not Available [facility] ([facility]) [address] [place], [address], 09/05/2021 10:12:57 09/05/19 22 09/05/2021 LIPID PANEL cholesterol, total 239 mg/dL 100-19 9 above high normal Not Available [facility] ([facility]) [address] [place], [address], 09/05/2021 10:12:58 09/05/19 22 09/05/2021 LIPID PANEL triglyceride s 568 mg/dL 0-149 alert high Not Available [facility] ([facility]) [address] [place], [address], 09/05/2021 10:12:58 09/05/19 22 09/05/2021 LIPID PANEL HDL cholesterol 36 mg/dL >39 below low normal Not Available [facility] ([facility]) [address] [place], [address], 09/05/2021 10:12:58 09/05/19 22 09/05/2021 LIPID PANEL VLDL cholesterol kristen 98 mg/dL 5-40 above high normal Not Available [facility] ([facility]) [address] [place], [address], 09/05/2021 10:12:58 09/05/19 22 09/05/2021 LIPID PANEL LDL chol calc ([facility]) 105 mg/dL 0-99 above high normal Not Available [facility] (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) [address] [place], [address], 09/05/2021 10:12:58 09/05/19 22 09/05/2021 IRON AND TIBC iron bind.cap.(TI BC) 365 ug/dL 250-45 0 Not Available [facility] ([facility]) [address] [facility] [place], [address], 09/05/2021 10:12:58 09/05/19 22 09/05/2021 IRON AND TIBC UIBC 297 ug/dL 131-42 5 Not Available [facility] ([facility]) [address] [facility], [place], [address], 09/05/2021 10:12:58 09/05/19 22 09/05/2021 IRON AND TIBC iron 68 ug/dL 27-159 Not Available [facility] ([facility]) [address] [facility], [place], [address], 09/05/2021 10:12:58 09/05/19 22 09/05/2021 IRON AND TIBC iron saturation 19 % 15-55 Not Available [facility] ([facility]) [address] [facility], [place], [address], 09/05/2021 10:12:58 09/05/19 22 09/05/2021 VITAM IN B12 AND FOLAT E vitamin B12 403 pg/mL 232-12 45 Not Available [facility] ([facility]) [address] [facility], [place], [address], 09/05/2021 10:12:59 09/05/19 22 09/05/2021 VITAM IN B12 AND FOLAT E folate (folic acid), serum 15.9 NG/mL >3.0 A serum folat e hernán ntrat ion of less than 3.1 ng/mL is consi dered to repre sent clini kristen defic iency . Not Available [facility] ([facility]) [address] [facility], [place], [address], 09/05/2021 10:12:59 09/05/19 22 09/05/2021 HEMOG LOBIN A1C hemoglobin A1C 5.4 % 4.8-5. 6 Predi abete s: 5.7 - 6.4 Diabe may: >6.4 Glyce radha contr ol for adult s with diabe may: <7.0 Not Available [facility] ([facility]) [address] [facility], [place], [address], 09/05/2021 10:13:00 09/05/19 22 09/05/2021 VITAM IN [...] um and D. Sindhu jin DC: The [facility] Press . 2. Azam spring MF, Rima ey [place], Komal off-F errar i DUNCAN, et al. Evalu ation , treat ment, and preve ntion of vitam in D defic iency : an Endoc rine Socie ty clini kristen pract ice guide line. JCEM. 2010; 96(7) :1911 -30. Not Available [facility] ([facility]) [address] [facility], [place], [address], 09/05/2021 10:13:00 09/05/19 22 09/05/2021 CREAT INE CAROLYNN E,TOT AL creatine kinase,total 45 U/L 32-182 Not Available [facility] ([facility]) [address] [facility], [place], [address], 09/05/2021 10:13:01 09/05/19 22 09/05/2021 MISBAH TIN ferritin 70 NG/mL 15-150 Not Available [facility] ([facility]) [address] [facility], [place], [address], 09/05/2021 10:13:05 11/06/19 22 11/05/2021 CT, coron ventura calci um score No observ ation record ed. [id number] [facility] [address], [place], [address], 11/07/2021 18:58:32 11/06/19 22 11/05/2021 trans -thor acic echoc ardio gram (TTE) (PROC ) No observ ation record ed. [email or web address] [facility] [address], [place], [address], 11/07/2021 18:26:56 11/15/19 22 11/05/2021 sleep study , diagn ostic (PROC ) No observ ation record ed. [address] [facility] [address], [place], [address], 11/21/2021 22:03:05 Result Notes None recorded. Problems Name Problem SNOMED Code Status Onset Date Resolution Date Notes Provider Name and Address Organization Details Recorded Time Low back strain 940661089 Active 2021 Jese Baldwin PA-C Attn: Mechelle akbar,[address] [place], [address], [facility] 2 12:00:50 Obese 192985206 Active 2021 Jese Baldwin PA-C Attn: Accounttino g,[address] [place], [address], [place] [facility] 2 12:04:12 Anemia 489851538 Active 2021 Jese Baldwin PA-C Attn: Accountin g,[address] [place], [address], [place] 2 12:05:19 Hyperlipide lisbeth 25193742 Active 2021 Jese aBldwin PA-C Attn: Accounttino g,[address] [place], [address], [place] [facility] 2 18:14:52 Vitamin D below reference range 542693313 Active 2021 Jese Baldwin PA-C Attn: Mechelle akbar,[address] [facility], [place], [address], [place] [facility] 2 18:28:26 Contact dermatitis 38752773 Active 2015 Jese Baldwin PA-C Attn: Ashleetino akbar,[address] [facility], [place], [address], [place] [facility] 6 15:12:05 Depressive disorder 48708552 Active 2015 Jese Baldwin PA-C Attn: Mechelle raffy,[address] [place], [address], [place] [facility] 6 15:13:38 Renal pain 516282843 Active 2015 Jese Baldwin PA-C Attn: Mechelle akbar,[address] [place], [address], [place] [facility] 6 15:19:11 Bacterial vaginosis 790786106 Active 2016 Jese Baldwin PA-C Attn: Mechelle raffy,[address] [facility], [place], [address], [place] [facility] 7 15:48:59 Retroverted uterus 885872610 Completed 201604/07/2016 Jese Baldwin PA-C Attn: Mechelle akbar,[address] [place], [address], [place] [facility] 7 15:53:49 Disorder of urinary bladder 22012950 Active 2016 Jese Baldwin PA-C Attn: Mechelle akbar,[address] [place], [address], [place] [facility] 7 15:53:38 Family history of Raised blood lipids 609235711 Active 2016 Jese Baldwin PA-C Attn: Mechelle akbar,[address], [place], [address], [place] [facility] 7 15:54:58 Problem Notes None recorded. Procedures Surgical History None recorded. Imaging Results Imaging Date Name Status LastModified by Organization Details LastModified Time 11/05/2021 CT, coronary calcium score completed [address] [facility] [address], [place], [address], 11/07/2021 18:58:32 11/05/2021 trans-thoracic echocardiogram (TTE) (PROC) completed [address] [facility] [address], [place], [address], 11/07/2021 18:26:56 11/05/2021 sleep study, diagnostic (PROC) completed [address] [facility] [address] , [place], [address], 11/21/2021 22:03:05 Procedure Notes None recorded. Medical [...] Not Available Not Available Not Available Fluvirin 8896-2526 45 mcg (15 mcg x 3)/0.5 mL intramuscul ar suspension 09/02 completed Not Available Not Available Not Available Vitals Date Recorded Body height Body mass index (BMI) Body weight Oxygen saturation Oxygen saturation in Arterial blood by Pulse oximetry Heart rate Systolic blood pressure Diastolic blood pressure Provider Name and Address Organization Details Last Updated DateTime 160.02 cm 31.4 kg/m2 56195.2 8 g 98 % 98 % 97 /min 126 mm[Hg] 72 mm[Hg] Kusum Travis [facility] 2 11:33:34 Date Recorded Body height Body mass index (BMI) Body weight Oxygen saturation Oxygen saturation in Arterial blood by Pulse oximetry Heart rate Body temperature Systolic blood pressure Diastolic blood pressure Provider Name and Address Organization Details Last Updated DateTime 2 160.02 cm 32.2 kg/m2 83391.8 1 g 98 % 98 % 93 /min 97.8 [degF] 126 mm[Hg] 70 mm[Hg] Dolores Sheriff MA [facility] SI 2 15:36:44 Date Recorded Body height Body weight Body mass index (BMI) Oxygen saturation Oxygen saturation in Arterial blood by Pulse oximetry Heart rate Body temperature Systolic blood pressure Diastolic blood pressure Provider Name and Address Organization Details Last Updated DateTime 7 160.02 cm 99914.8 9 g 25.7 kg/m2 99 % 99 % 83 /min 98.1 [degF] 112 mm[Hg] 72 mm[Hg] Naheed Brambila MA [facility] 7 14:57:06 Date Recorded Body height Body weight Body mass index (BMI) Oxygen saturation Oxygen saturation in Arterial blood by Pulse oximetry Heart rate Body temperature Systolic blood pressure Diastolic blood pressure Provider Name and Address Organization Details Last Updated DateTime 7 160.02 cm 04749.8 9 g 25.7 kg/m2 98 % 98 % 88 /min 98.6 [degF] 126 mm[Hg] 64 mm[Hg] Chelsy Weller MA [facility] 7 15:33:01 Date Recorded Body height Body mass index (BMI) Body weight Oxygen saturation Oxygen saturation in Arterial blood by Pulse oximetry Heart rate Body temperature Systolic blood pressure Diastolic blood pressure Provider Name and Address Organization Details Last Updated DateTime 7 160.02 cm 24.4 kg/m2 37994.9 5 g 98 % 98 % 77 /min 98.5 [degF] 104 mm[Hg] 68 mm[Hg] Naheed Brambila MA [facility] 7 12:31:01 Social History Question Answer Notes LastModified by Organizat ion Details LastModified Time Tobacco Smoking Status Never Smoker Naheed CARMEN Brambila [facility], [place] - [facility] 02/05/2016 14:49:06 Do You Have An Advance [...] Anxious, Or Unable To Sleep At Night)? [id number] Information not available 09/02/2021 Do You Use Any Illicit Or Recreational Drugs? Yes A Little Raheema Information not available 09/02/2021 Do You Use [...] Response Coronary Artery Disease N Other N High Blood Pressure N Atrial Fibrillation N Thyroid Problems N Kidney or Bladder Problems Y GI Problems N Depression N COPD N Blood Clots N Skin Problems N Anemia N Heart Attack (CO) N Diabetes N Anxiety Disorder N Muscle, Joint, or Bone Problems N Seizures/Epilepsy N Acid Reflux (GERD) N Cancer N Stroke N Asthma N Allergies Y High Cholesterol N Hepatitis N Liver Disease N Headaches N Osteoporosis N Heart Failure N Gynecological History Statement/Question Response Flow Moderate Date of LMP 01/24/2016 Frequency of Cycle (Q days) 28 Menses Monthly Y Duration of Flow (days) 5 Current Control Method None LMP Definite Obstetrics History GPAL:G 0 P 0 0 0 0 Past Encounters Encounter ID Performer Location Encounter Start Date Encounter Closed Date Diagnosis/Indication Diagnosis SNOMED-CT Code Diagnosis ICD10 Code Diagnosis Note [id number] SHAYLEE Cole (Adult Med) [address] [place] [phone] 02/05/2016 14:31:47 02/05/2016 15:36:57 Contact dermatitis 04929448 L25.9 Depressive disorder 3548 9007 F32.89 Renal pain 653704921 N23 left worse than right [id number] SHAYLEE Cole (Adult Med) [address] [place] [phone] 04/07/2016 14:49:26 04/07/2016 15:58:18 Renal pain 284617115 N23 left worse than right Depressive disorder 3548 9007 F32.89 Contact dermatitis 99113 004 L25.9 Bacterial vaginosis 4197 95592 N76.0 Disorder o f urinary bladder 51030914 N32.9 Family his tory of Raised blood lipids 150868373 Z83.49 [id number] SHAYLEE Cole (Adult Med) [address] [place] [phone] 06/02/2016 15:02:21 06/02/2016 16:42:13 Bacterial vaginosis 976087095 N76.0 Depressive disorder 3548 9007 F32.89 [id number] SHAYLEE Cole (Adult Med) [address] [place] [phone] 08/07/2016 12:20:07 08/08/2016 09:37:26 Depressive disorder 87283047 F32.89 [id number] SHAYLEE Cole (Adult Med) [address] [place] [phone] 09/02/2021 11:08:20 09/03/2021 10:54:23 Family history of Raised blood lipids 180930395 Z83.49 Depressive disorder 3548 9007 F32.89 Low back strain 09037944 1 S39.012A Obese 767038633 E66.9 Anemia 479833086 D64.9 [id number] SHAYLEE Cole (Adult Med) [address] [place] [address] 10/29/2021 15:18:33 10/30/2021 10:20:13 Vitamin D below reference range 552016109 E55.9 Depressive disorder 3548 9007 F32.89 Hyperlipidemia 79178105 E78.5 Low back strain 33655832 1 S39.012A Obese 172191940 E66.9 Contact dermatitis 57162 004 L25.9 Health Concerns Section Related Observation LastModified by Organization Detai ls LastModified Time None Recorded Concern Status LastModified by Organization Details LastModified Time None Recorded Advance Directives Directive N: Payers Encounter Date Sequence Insurance Name Policy Number Policy Moise Covered Member ID Moise Member ID Guarantor Name 04/07/2016 1 [facility] (MEDICAID HMO) Janene Joshua [id number] Janene Joshua 06/02/2016 1 [facility] (MEDICAID HMO) Janene Joshua [id number] Janene Vazquezin 08/07/2016 1 [facility] (MEDICAID HMO) Janeneclinton Vazquezin [id number] Janene Holland 09/02/2021 1 [facility] (MEDICAID REPLACEMENT - HMO) [id number] Janeneclinton Vazquezin [id number] Janene Tres 10/29/2021 1 [facility] (MEDICAID REPLACEMENT - HMO) [id number] Janene Holland [id number] Janene Tres Notes Date Note Type Note Provider Name and Address Organization Details Recorded Time 04/07/2016 text/html sob with walking Jese Baldwin PA-C Attn: Accounting,[address] [facility], [place], [address], [place] 04/08/2016 13:57:45 06/02/2016 text/html bacterial vagino sis is back Jese Baldwin PA-C Attn: Accounting,[address] [facility], [place], [address], [place] 06/03/2016 13:56:32 08/07/2016 text/html feeling better o n citalopram , still just wants to sleep ....Is going to the gym every other day , proud of 9 pound weight loss . 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 She has started physical therapy for her lower back. She reports always being tired the whole day and does not sleep well. Jese Baldwin PA-C Attn: Accounting,[address] [facility], [place], [address], [facility] 10/30/2021 10:17:38 OBGyn Episode No OBEpisode recorded.
[2024-04-08 09:50] LABS: Troponin I < 0.012 ng/mL (0.000-0.034)
[2024-04-08] MEDS: SODIUM CHLORIDE 0.9% IV 1,000 ML 999 ML IV CONT ×2 (09:55→12:11)
[2024-04-08] MEDS: ONDANSETRON INJ 4 MG/2 ML VIAL IV PUSH ×2 (09:55→14:08)
[2024-04-08 09:56] LABS: D Dimer 1.63 ug/mL (<0.48)
[2024-04-08] MEDS: FAMOTIDINE 20 MG/2 ML VIAL IV PUSH (09:57)
[2024-04-08] MEDS: MORPHINE SULFATE (*CRX) 4 MG/ML INJ IV PUSH (09:59)
[2024-04-08 11:11] LABS: Partial Thromboplastin Time 196.9 Seconds (22.3-36.8)
[2024-04-08 11:17] LABS: Lipase > 40000 U/L (23-300)
[2024-04-08] MEDS: PIPERACILLN/TAZ 3.375GM/NS50ML 3.375 GM/50 ML BAG IVPB (12:12)
[2024-04-08 12:47] LABS: Troponin I < 0.012 ng/mL (0.000-0.034)
--- NOTE | 2024-04-08 13:08 | ADMGEN ---
This patient, Janene Joshua, was admitted to Medical Room 241-01. Patient/family oriented to hospital policies and general routines including ID bracelet, bed and alarms, visiting hours, pain management, procedures, bathroom and other care routines, personal items, smoking policy, room service/diet, and visiting hours. Information on how to activate the Rapid Response Team has been discussed. Patient/Family are encouraged to report perceived risks to care and to ask questions if they do not understand what they are told or what they should do.
--- NOTE | 2024-04-08 13:44 | PM.IMHP ---
H&P: HPI History of Present Illness Date/Time: 04/08/24 13:44 Chief Complaint: Chest Tightness, Low Back Pain Narrative: 29 y/o F presents here with chest tightness, back pain, and epigastric pain with PMH of anxiety and depression. The patient presents here from home for further evaluation of chest pain, back pain, and epigastric pain. She reports this pain has been intermittent for the past 8 days. Initially sought care at [facility] (04/06) and she was given pain medications and released without labs/imaging. She describes the pain as a band across her chest upper abdomen and mid back, sharp, squeezing, constant, aggravated by movement/deep inspiration, and no alleviating factors. The symptoms are also accompanied by nausea, vomiting, diarrhea, body aches, diaphoresis/cold sweats. She denies accompanying fever. She reports no alcohol use. Patient also reported eyelid twitching a persistent DUNCAN since delivery on 03/21. She reports the eyelid twitching has resolved but continues to have a headache which is chronic for her. The patient was also noted to have an elevated PTT in June of 2023, she was referred to Hematology but has not been able to follow-up. Reports she has still been bleeding daily since deliver 03/05/24, estimates she could change her medium pad once per hour. Patient reports that her mother and maternal grandma were on blood thinners from an early age, unsure if there was a genetic component or clotting disorder. Initial VS at presentation: 97.8? F, HR 88, RR 21, 125/73, and 100% on RA. ED workup showed: WBC 9.4, no anemia, PTT 196.9, creatinine 0.64 and GFR >60, glucose 167, total bilirubin 5.5, AST 196, ALT 412, alk-phos 234, initial troponin negative, lipase greater than 40,000. CXR showed no focal infiltrate or effusion. CTA of the chest/abdomen/pelvis showed acute interstitial pancreatitis with prominent non loculated acute peripancreatic fluid collections and stranding, tiny gallstones versus porcelain gallbladder with mural calcification, no evident choledocholithiasis or ductal dilation, mild dependent atelectasis in the lower lobes, no PE or acute cardiopulmonary disease. Review of Systems Review of Systems: All systems reviewed & are unremarkable except as noted in HPI and below [facility] Past Medical History Medical History Nausea Upper abdominal pain Gallstone pancreatitis Overweight (BMI 25.0-29.9) Anxiety and depression Suppression of menses Encounter for removal of intrauterine contraceptive device Anxiety Surgical History Surgical History H/O gynecological procedure mirena iud insertion - 09/19/2020 Mirena IUD removal 04/07/23 Family History Family History Mother History of blood clots Other Acute myocardial infarction Hypertension Renal failure Social History Social History Smoking status: Never smoker Second hand tobacco smoke exposure: No Alcohol intake: never Substance use: current Substance use type: marijuana Other substance usage details: daily Do You Feel Safe in your Home?: Yes Lack of Transportation: No Lack of Food: Never True Current Housing: I Have Housing Concerned About Future Housing: No Difficulty Paying Gas/Electric Bills: No Difficulty Paying for Meds: No Currently Unemployed: No Education: High School Diploma/GED Difficulty w/ Childcare or Family Care: No Living arrangements: with family Occupation/Education: occupation 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 Gender identity (if verbalized by the patient): Female Sexual Orientation (if Verbalized by the Patient): Straight or Heterosexual Spiritual care concerns: No Meds Home Medications and Allergies Home Medications ?Medication ?Instructions ?Recorded ?Confirmed ?Type medroxyprogesterone 150 mg/mL 150 mg IM [id number] #1 mL 03/21/24 04/08/24 Rx intramuscular syringe (Depo-Provera) sertraline 50 mg tablet 50 mg PO DAILY #30 tabs 03/21/24 04/08/24 Rx lidocaine 5 % topical patch 1 patch transdermal Q24H PRN back 04/08/24 04/08/24 History pain naproxen 500 mg tablet 500 mg PO BID PRN pain 04/08/24 04/08/24 History Allergies Allergy/AdvReac Type Severity Reaction Status Date / Time alprazolam (From Xanax) Allergy Hives Verified 04/08/24 09:07 Vital Signs Vital Signs - 24 hr 04/08/24 08:54 04/08/24 09:03 04/08/24 09:03 Temperature 97.8 F Pulse Rate 88 82 Respiratory Rate 21 H Blood Pressure 125/73 Pulse Oximetry 100 100 Oxygen Delivery Room Air Room Air 04/08/24 09:07 04/08/24 10:03 04/08/24 11:15 Temperature Pulse Rate 81 72 Respiratory Rate 14 16 Blood Pressure 111/79 128/89 Pulse Oximetry 100 99 100 Oxygen Delivery Room Air 04/08/24 12:18 04/08/24 13:39 Temperature Pulse Rate 71 Respiratory Rate 16 Blood Pressure 131/82 Pulse Oximetry 100 Oxygen Delivery Room Air Exam Const: General: no acute distress Other: , female, uncomfortable, nontoxic appearance HENMT: Face/Nose/Sinus: Normal nares present Mouth: Yes moist mucous membranes Eyes: General: appearance normal, both eyes and all related structures Sclera: sclerae normal Pupils: Equal, round and reactive pupils present EOM: EOMs intact bilaterally Resp: Effort & Inspection: normal respiratory effort Auscultation: clear to auscultation bilaterally Cardio: Rate: regular rate Rhythm: regular rhythm Other: S1-S2 present without murmur, rub, ectopy GI: Other: Abdomen diffusely tender, soft, no hepatomegaly or splenomegaly appreciated. Normoactive bowel sounds in all quadrants. Skin: General skin exam: normal color and no rashes or lesions noted Wounds: no wounds Neuro: Speech: normal speech Motor exam (neuro): 5/5 motor strength present throughout Sensory Exam: normal sensation Other: A&O x4 Extrem: General: normal to inspection Psych: Mental Status: mental status grossly normal Affect: normal affect Other: Good insight and judgment, pleasant H&P: Results Labs Labs: Short CBC 04/08/24 Range/Units 09:15 WBC 9.4 (4.5-10.0) K/mm3 Hgb 13.2 (12.0-15.0) g/dL Hct 42.3 (37.0-47.0) % Plt Count 179 (150-375) k/mm3 [facility] 04/08/24 09:15 Sodium 140 Potassium 4.1 Chloride 107 Carbon Dioxide 20 L BUN 12 Creatinine 0.64 L Glucose 167 H Calcium 8.8 Cardiac Enzymes 04/08/24 04/08/24 Range/Units 09:15 12:09 Troponin I < 0.012 < 0.012 (0.000-0.034) ng/mL Liver Function 04/08/24 Range/Units 09:15 Total Bilirubin 5.5 H (0.2-1.3) mg/dL AST 196 H (14-36) U/L ALT 412 H (6-35) U/L Alkaline Phosphatase 234 H (38-126) U/L Albumin 4.1 (3.5-5.1) g/dL Assessment and Plan Assessment and plan (1) Gallstone pancreatitis: Code(s): K85.10 - Biliary acute pancreatitis without necrosis or infection Status: Acute Assessment and Plan: - CTA chest/abdomen/pelvis: 1. Acute interstitial pancreatitis with prominent nonloculated acute peripancreatic fluid collections and stranding. 2. Tiny gallstones versus porcelain gallbladder with mural calcification along the dependent wall of the otherwise normal gallbladder. No evident choledocholithiasis or intra or extra hepatic biliary ductal dilation. 3. Mild dependent atelectasis in the lower lobes. No pulmonary embolism or other acute cardiopulmonary disease. - GI consulted, Germain DOMINGUEZ MRCP - general surgery consulted - analgesics and antiemetics p.r.n. - IV fluids - lipase and LFTs significantly elevated, trend - NPO (2) Cholelithiasis: Qualifiers: Biliary obstruction: with biliary obstruction Cholecystitis presence: without cholecystitis Cholelithiasis location: gallbladder Qualified Code(s): K80.21 - Calculus of gallbladder without cholecystitis with obstruction Code(s): K80.20 - Calculus of gallbladder without cholecystitis without obstruction Status: Acute Assessment and Plan: - see above (3) Transaminitis: Code(s): R74.01 - Elevation of levels of liver transaminase levels Status: Acute Assessment and Plan: - see above (4) Elevated partial thromboplastin time (PTT): Code(s): R79.1 - Abnormal coagulation profile Status: Acute Assessment and Plan: - PTT 197, previously 159 on 06/27/2023 -has previously been referred to Hematology, however due to and work she was unable to follow-up with this. She reports possible maternal and maternal grandmother history of clotting disorder. Both these family members are , she is reaching out to family to see if anyone knows their medical history. - PTT 1-1 mix not available at this facility - oncology/hematology consulted (5) Abnormal uterine bleeding: Code(s): N93.9 - Abnormal uterine and vaginal bleeding, unspecified Status: Acute Assessment and Plan: - rpoerts vaginal bleeding for the last 5+ weeks since delivery on 03/05/24 - PTT elevated and PT/INR WNL - BEAM DOFFER consulted Plan Diet: NPO GI Prophylaxis: Not currently indicated DVT Prophylaxis: SCDs Lines: Peripheral Code Status: Full code Quality VTE Prophylaxis VTE prophylaxis: mechanical ordered Hospitalist MIPS Advance Care Plan I have confirmed that the patient's Advanced Care Plan is present, code status is documented, or surrogate decision maker is listed in patient medical record.: Yes Medication Reconciliation I have utilized all available resources to obtain, update and review the patients current medications (includes all prescriptions, OTC, herbals, cannabis, and nutritional supplements).: Yes
[2024-04-08] MEDS: MORPHINE SULFATE (*CRX) 2 MG/ML INJ IV PUSH ×2 (14:08→18:18)
--- NOTE | 2024-04-08 14:21 | P.CONGS_ITS ---
Assessment and Plan Assessment and plan (1) Acute pancreatitis: Qualifiers: Acute pancreatitis complication: unspecified Pancreatitis type: u nspecified pancreatitis type Qualified Code(s): K85.90 - Acute pancreatitis without necrosis or infection, unspecified Code(s): K85.90 - Acute pancreatitis without necrosis or infection, unspecified Status: Acute Assessment and Plan: Patient presents with upper abdominal pain, nausea, and vomiting. Lipase is > 40,000 and CTA chest/abdomen/pelvis showed acute interstitial pancreatitis with prominent peripancreatic fluid collection. There are possible tiny gallstones versus calcifications of the dependent aspect of the gallbladder on CT. No biliary duct dilation or choledocholithiasis on CT. MRCP has been ordered. She denies heavy alcohol use or history of pancreatitis. Given her elevated liver enzymes with hyperbilirubinemia, biliary pancreatitis is a possibility. Will await MRCP results. Continue medical management with IV fluids, bowel rest, and analgesics as needed for now. Repeat labs again tomorrow. (2) Cholelithiasis: Qualifiers: Biliary obstruction: with biliary obstruction Cholecystitis presence: w ithout cholecystitis Cholelithiasis location: gallbladder Qualified Code(s): K 80.21 - Calculus of gallbladder without cholecystitis with obstruction Code(s): K80.20 - Calculus of gallbladder without cholecystitis without obstruction Status: Acute Assessment and Plan: Possible tiny gallstones noted on CT versus porcelain gallbladder. MRCP ordered. See plan above. (3) Transaminitis: Code(s): R74.01 - Elevation of levels of liver transaminase levels Status: Acute Assessment and Plan: GI consulted. MRCP ordered. Repeat labs tomorrow. (4) Elevated partial thromboplastin time (PTT): Code(s): R79.1 - Abnormal coagulation profile Status: Acute Assessment and Plan: Patient presents with an elevated PTT. This was also elevated > 200 in June of 2023 when she was evaluated in the ER. On this admission her PTT is 197 with her PT and INR normal. She did have an elevated blood pressure following her delivery, but no diagnosis of eclampsia. Also with her PT being normal, you wouldn't expect DIC. We will consult Hematology for further workup. (5) Status post vaginal delivery: Status: Acute Assessment and Plan: 5 weeks from a vaginal delivery. Continues to have persistent unimproved vaginal bleeding with a high PTT. Will consult OBGYN for evaluation. History of Present Illness Consult details Consult date: 04/08/24 Reason for consult: other (Cholelithiasis ) Requesting physician: Michelle Alvarado PA-C Narrative: This is a 29-year-old woman who is 5 weeks from a vaginal delivery and we have been asked to see the patient in surgical consultation for cholelithiasis. She reports having midsternal chest and upper back pain pain starting 8 days ago. This occurred in the middle of the night and woke her up from sleep. Her pain persisted and she went to [facility] about 2 days later. She denies having any scans or tests ran while in the ER but was sent home with a lidocaine patch and naproxen. Her pain did improve over the next few days and then last night she had eaten fried chicken wings for dinner. She then woke up around 7am with upper abdominal pain that radiated into her mid chest and back. She reports associated nausea and vomiting. Due to her severe pain, she came into the ER for evaluation. Labs showed a white blood cell count 9400, total bilirubin 5.5, AST 196, ALT 412, alk-phos 234, troponin negative, lipase greater than 40,000, PT and INR normal, but PTT 197. D-dimer 1.63. CTA chest, abdomen, and pelvis showed acute interstitial pancreatitis with prominent non loculated acute peripancreatic fluid collections and stranding, tiny gallstones versus porcelain gallbladder with mural calcification along the dependent wall of the otherwise normal gallbladder, mild dependent atelectasis in the lower lobes, no pulmonary embolism or other acute cardiopulmonary disease. No evident choledocholithiasis or biliary ductal dilation. She was admitted to the hospitalist service. She received 2 L of IV fluids in the ED. No previous abdominal surgery. Denies any heavy alcohol use. No previous episodes of pancreatitis. In review of her chart, she has an elevated PTT up to >200 back in June of 2023. She was seen in [place] ED at that time and referred to Hematology. It is unclear if she followed up with him for further workup as an outpatient, but returns with still an elevated PTT of 197. She is reporting some vaginal bleeding with clots. She is changing her pad about every 3 hours. This has persisted over the past 5 weeks and does not feel it has improved or slowed any. She did have headaches and reports floaters the first week after delivery. She was recommended to f/u with her OBGYN but these symptoms improved by the time she saw her OB as an outpatient and was started on Depo at that time. Review of Systems 2 Review of Systems: All systems reviewed & are unremarkable except as noted in HPI and below PMFSH Past Medical History Medical History Overweight (BMI 25.0-29.9) Anxiety and depression Suppression of menses Encounter for removal of intrauterine contraceptive device Anxiety Surgical History Surgical History H/O gynecological procedure mirena iud insertion - 09/19/2020 Mirena IUD removal 04/07/23 Family History Family History Mother History of blood clots Other Acute myocardial infarction Hypertension Renal failure Social History Social History Smoking status: Never smoker Second hand tobacco smoke exposure: No Alcohol intake: never Substance use: current Substance use type: marijuana Other substance usage details: daily Do You Feel Safe in your Home?: Yes Lack of Transportation: No Lack of Food: Never True Current Housing: I Have Housing Concerned About Future Housing: No Difficulty Paying Gas/Electric Bills: No Difficulty Paying for Meds: No Currently Unemployed: No Education: High School Diploma/GED Difficulty w/ Childcare or Family Care: No Living arrangements: with family Occupation/Education: occupation 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 Gender identity (if verbalized by the patient): Female Sexual Orientation (if Verbalized by the Patient): Straight or Heterosexual Spiritual care concerns: No Meds Home Medications and Allergies Home Medications ?Medication ?Instructions ?Recorded ?Confirmed ?Type medroxyprogesterone 150 mg/mL 150 mg IM [id number] #1 mL 03/21/24 04/08/24 Rx intramuscular syringe (Depo-Provera) sertraline 50 mg tablet 50 mg PO DAILY #30 tabs 03/21/24 04/08/24 Rx lidocaine 5 % topical patch 1 patch transdermal Q24H PRN back 04/08/24 04/08/24 History pain naproxen 500 mg tablet 500 mg PO BID PRN pain 04/08/24 04/08/24 History Allergies Allergy/AdvReac Type Severity Reaction Status Date / Time alprazolam (From Xanax) Allergy Hives Verified 04/08/24 09:07 Vital Signs Vital Signs - 24 hr 04/08/24 08:54 04/08/24 09:03 04/08/24 09:03 Temperature 97.8 F Pulse Rate 88 82 Respiratory Rate 21 H Blood Pressure 125/73 Pulse Oximetry 100 100 Oxygen Delivery Room Air Room Air 04/08/24 09:07 04/08/24 10:03 04/08/24 11:15 Temperature Pulse Rate 81 72 Respiratory Rate 14 16 Blood Pressure 111/79 128/89 Pulse Oximetry 100 99 100 Oxygen Delivery Room Air 04/08/24 12:18 04/08/24 13:39 Temperature Pulse Rate 71 Respiratory Rate 16 Blood Pressure 131/82 Pulse Oximetry 100 Oxygen Delivery Room Air Exam 2 Const: General: comfortable and no acute distress Nutritional Appearance: a verage body habitus Orientation/consciousness: patient oriented x3 HENMT: Head: normocephalic and atraumatic Ears: hearing grossly normal bilaterally Mouth: Yes moist mucous membranes Eyes: General: appearance normal, both eyes and all related structures P upils: Equal, round and reactive pupils present Neck: Neck: normal visual inspection and full ROM Resp: Effort & Inspection: no respiratory distress Auscultation: clear to auscultation bilaterally Cardio: Rate: regular rate Rhythm: regular rhythm Peripheral pulses: P eripheral pulses 2+ throughout GI: Inspection: distended and no visible herniation GI Palp: Yes Soft to palpation (some firmness in the mid upper abdomen), Yes Tenderness to palpation present (GI) (diffusely tender, worse across the upper abdomen), Yes Guarding due to palpation present (GI) (upper abdomen) and No Rebound tenderness present Percussion: Yes normal to percussion Auscultation: normal bowel sounds Skin: General skin exam: normal color Neuro: General: moves all extremities and no focal motor deficits Speech: n ormal speech Motor exam (neuro): 5/5 motor strength present throughout Extrem: General: normal to inspection and no edema Psych: Mental Status: mental status grossly normal Attitude: cooperative Insight: Good insight present (Psych) Judgement: Good judgement present (Psych) Results Labs 04/08/24 09:15 04/08/24 09:15 Labs: Abnormal lab results 04/08/24 04/08/24 Range/Units 09:15 10:12 MCH 25.1 L (26-34) pg MCHC 31.2 L (32-36) g/dl RDW 17.2 H (11.5-14.5) % Neut % (Auto) 89.6 H (45.5-73.1) % Lymph % (Auto) 6.5 L (18.3-44.2) % Lymph # (Auto) 0.61 L (0.9-3.2) K/mm3 Abs Immat Gran (auto) 0.04 H (0.00-0.031) K/mm3 Absolute Neuts (auto) 8.4 H (1.3-6.7) K/mm3 APTT 197.0 H* 196.9 H* (22.3-36.8) Seconds D-Dimer 1.63 H (<0.48) ug/mL Carbon Dioxide 20 L (22-30) mmol/L Anion Gap 13 H (4-12) mmol/L Creatinine 0.64 L (0.7-1.0) mg/dL Glucose 167 H (65-110) mg/dL Total Bilirubin 5.5 H (0.2-1.3) mg/dL AST 196 H (14-36) U/L ALT 412 H (6-35) U/L Alkaline Phosphatase 234 H (38-126) U/L Lipase > 49518 H (23-300) U/L Diabetes panel 04/08/24 Range/Units 09:15 Sodium 140 (137-145) mmol/L Potassium 4.1 (3.4-5.0) mmol/L Chloride 107 (98-107) mmol/L Carbon Dioxide 20 L (22-30) mmol/L BUN 12 (7-17) mg/dL Creatinine 0.64 L (0.7-1.0) mg/dL Glucose 167 H (65-110) mg/dL Calcium 8.8 (8.4-10.2) mg/dL AST 196 H (14-36) U/L ALT 412 H (6-35) U/L Alkaline Phosphatase 234 H (38-126) U/L Total Protein 8.0 (6.3-8.2) g/dL Albumin 4.1 (3.5-5.1) g/dL Calcium panel 04/08/24 Range/Units 09:15 Calcium 8.8 (8.4-10.2) mg/dL Albumin 4.1 (3.5-5.1) g/dL Pituitary panel 04/08/24 Range/Units 09:15 Sodium 140 (137-145) mmol/L Potassium 4.1 (3.4-5.0) mmol/L Chloride 107 (98-107) mmol/L Carbon Dioxide 20 L (22-30) mmol/L BUN 12 (7-17) mg/dL Creatinine 0.64 L (0.7-1.0) mg/dL Glucose 167 H (65-110) mg/dL Calcium 8.8 (8.4-10.2) mg/dL Adrenal panel 04/08/24 Range/Units 09:15 Sodium 140 (137-145) mmol/L Potassium 4.1 (3.4-5.0) mmol/L Chloride 107 (98-107) mmol/L Carbon Dioxide 20 L (22-30) mmol/L BUN 12 (7-17) mg/dL Creatinine 0.64 L (0.7-1.0) mg/dL Glucose 167 H (65-110) mg/dL Calcium 8.8 (8.4-10.2) mg/dL Total Bilirubin 5.5 H (0.2-1.3) mg/dL AST 196 H (14-36) U/L ALT 412 H (6-35) U/L Alkaline Phosphatase 234 H (38-126) U/L Total Protein 8.0 (6.3-8.2) g/dL Albumin 4.1 (3.5-5.1) g/dL All other labs normal. Imaging Additional studies: ITS Impressions Chest X-Ray 04/08/24 09:40 IMPRESSION: No focal infiltrate or effusion. Chest/Abdomen/Pelvis CTA 04/08/24 10:45 IMPRESSION: 1. Acute interstitial pancreatitis with prominent nonloculated acute peripancreatic fluid collections and stranding. 2. Tiny gallstones versus porcelain gallbladder with mural calcification along the dependent wall of the otherwise normal gallbladder. No evident choledocholithiasis or intra or extra hepatic biliary ductal dilation. 3. Mild dependent atelectasis in the lower lobes. No pulmonary embolism or other acute cardiopulmonary disease.
[2024-04-08 15:38] LABS: Troponin I 0.017 ng/mL (0.000-0.034)
--- NOTE | 2024-04-08 16:29 | P.CONGI_ITS ---
Assessment and Plan Assessment and plan (1) Gallstone pancreatitis: Code(s): K85.10 - Biliary acute pancreatitis without necrosis or infection Status: Acute Assessment and Plan: noted interstitial pancreatitis, also GS surgery on board on iv fluids, denies alcohol use trend liver enzymes normal hemoglobin and renal function will get mrcp to get better visualization biliary system given elevated bili (2) Transaminitis: Code(s): R74.01 - Elevation of levels of liver transaminase levels Status: Acute (3) Upper abdominal pain: Code(s): R10.10 - Upper abdominal pain, unspecified Status: Acute Assessment and Plan: from pancreatitis (4) Nausea: Code(s): R11.0 - Nausea Status: Acute (5) Elevated partial thromboplastin time (PTT): Code(s): R79.1 - Abnormal coagulation profile Status: Acute Assessment and Plan: noted previously will need to follow-up with 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 She is here with pain that started about 10 days ago in her back and radiated to her back for which has been taking OTC pain meds at home, she went to [place] [facility] and sent home without blood work or imaging. Pain has progressed and more intense now, also nausea and quite uncomfortable. She decided to come to [facility]. Labs showed a white blood cell count 9400, total bilirubin 5.5, AST 196, ALT 412, alk-phos 234, troponin negative, lipase greater than 40,000, PT and INR normal, PTT 197. D-dimer 1.63. CTA chest, abdomen, and pelvis showed acute interstitial pancreatitis with prominent non loculated acute peripancreatic fluid collections and stranding, tiny gallstones versus porcelain gallbladder with mural calcification along the dependent wall of the otherwise normal gallbladder, mild dependent atelectasis in the lower lobes, no pulmonary embolism or other acute cardiopulmonary disease. No evident choledocholithiasis or biliary ductal dilation. No previous abdominal surgery. Denies any heavy alcohol use, no previous episode. Treated with iv fluids, pending mrcp. Surgery on board. Review of Systems 2 Constitutional: Constitutional: Denies lethargy Eyes: Eyes: Denies blurry vision ENT: Reports Normal hearing present Cardiovascular: Cardiovascular: Reports chest pain Respiratory: Respiratory: Denies cough Gastrointestinal: Gastrointestinal: Reports abdominal pain and Reports nausea Genitourinary: Comments: recent vaginal delivery Musculoskeletal: Musculoskeletal: Reports back pain Integumentary/Breasts: Skin/Breast: Denies rash Neurologic: Denies Abnormal speech present Psychiatric: Psychiatric: Denies behavioral changes [facility] Past Medical History Medical History (Updated 04/08/24 @ 16:34 by Jimmy Blevins MD) Nausea Upper abdominal pain Gallstone pancreatitis Overweight (BMI 25.0-29.9) Anxiety and depression Suppression of menses Encounter for removal of intrauterine contraceptive device Anxiety Surgical History Surgical History H/O gynecological procedure mirena iud insertion - 09/19/2020 Mirena IUD removal 04/07/23 Family History Family History Mother History of blood clots Other Acute myocardial infarction Hypertension Renal failure Social History Social History Smoking status: Never smoker Second hand tobacco smoke exposure: No Alcohol intake: never Substance use: current Substance use type: marijuana Other substance usage details: daily Do You Feel Safe in your Home?: Yes Lack of Transportation: No Lack of Food: Never True Current Housing: I Have Housing Concerned About Future Housing: No Difficulty Paying Gas/Electric Bills: No Difficulty Paying for Meds: No Currently Unemployed: No Education: High School Diploma/GED Difficulty w/ Childcare or Family Care: No Living arrangements: with family Occupation/Education: occupation 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 Gender identity (if verbalized by the patient): Female Sexual Orientation (if Verbalized by the Patient): Straight or Heterosexual Spiritual care concerns: No Meds Home Medications and Allergies Home Medications ?Medication ?Instructions ?Recorded ?Confirmed ?Type medroxyprogesterone 150 mg/mL 150 mg IM [id number] #1 mL 03/21/24 04/08/24 Rx intramuscular syringe (Depo-Provera) sertraline 50 mg tablet 50 mg PO DAILY #30 tabs 03/21/24 04/08/24 Rx lidocaine 5 % topical patch 1 patch transdermal Q24H PRN back 04/08/24 04/08/24 History pain naproxen 500 mg tablet 500 mg PO BID PRN pain 04/08/24 04/08/24 History Allergies Allergy/AdvReac Type Severity Reaction Status Date / Time alprazolam (From Xanax) Allergy Hives Verified 04/08/24 09:07 Vital Signs Vital Signs - 24 hr 04/08/24 08:54 04/08/24 09:03 04/08/24 09:03 Temperature 97.8 F Pulse Rate 88 82 Respiratory Rate 21 H Blood Pressure 125/73 Pulse Oximetry 100 100 Oxygen Delivery Room Air Room Air 04/08/24 09:07 04/08/24 10:03 04/08/24 11:15 Temperature Pulse Rate 81 72 Respiratory Rate 14 16 Blood Pressure 111/79 128/89 Pulse Oximetry 100 99 100 Oxygen Delivery Room Air 04/08/24 12:18 04/08/24 13:39 04/08/24 14:00 Temperature 97.6 F Pulse Rate 71 66 Respiratory Rate 16 16 Blood Pressure 131/82 117/60 Pulse Oximetry 100 100 Oxygen Delivery Room Air 04/08/24 16:00 Temperature 97.6 F Pulse Rate 66 Respiratory Rate 16 Blood Pressure 117/60 Pulse Oximetry 100 Oxygen Delivery Exam 2 Const: General: comfortable and no acute distress Nutritional Appearance: a verage body habitus Orientation/consciousness: patient oriented x3 HENMT: Head: normocephalic and atraumatic Ears: hearing grossly normal bilaterally Eyes: General: appearance normal, both eyes and all related structures Neck: Neck: normal visual inspection and full ROM Resp: Effort & Inspection: no respiratory distress Auscultation: clear to auscultation bilaterally Cardio: Rate: regular rate Rhythm: regular rhythm GI: Inspection: distended and no visible herniation GI Palp: Yes Soft to palpation (some firmness in the mid upper abdomen), Yes Tenderness to palpation present (GI) (diffusely tender, worse across the upper abdomen), Yes Guarding due to palpation present (GI) (upper abdomen) and No Rebound tenderness present Auscultation: normal bowel sounds Skin: General skin exam: normal color Neuro: General: moves all extremities and no focal motor deficits Speech: n ormal speech Motor exam (neuro): 5/5 motor strength present throughout Extrem: General: normal to inspection and no edema Psych: Mental Status: mental status grossly normal Attitude: cooperative Insight: Good insight present (Psych) Judgement: Good judgement present (Psych) Results Labs 04/08/24 09:15 04/08/24 09:15 Labs: Short CBC 04/08/24 Range/Units 09:15 WBC 9.4 (4.5-10.0) K/mm3 Hgb 13.2 (12.0-15.0) g/dL Hct 42.3 (37.0-47.0) % Plt Count 179 (150-375) k/mm3 BMP 04/08/24 09:15 Sodium 140 Potassium 4.1 Chloride 107 Carbon Dioxide 20 L BUN 12 Creatinine 0.64 L Glucose 167 H Calcium 8.8 Cardiac Enzymes 04/08/24 04/08/24 04/08/24 Range/Units 09:15 12:09 15:09 Troponin I < 0.012 < 0.012 0.017 D (0.000-0.034) ng/mL Liver Function 04/08/24 Range/Units 09:15 Total Bilirubin 5.5 H (0.2-1.3) mg/dL AST 196 H (14-36) U/L ALT 412 H (6-35) U/L Alkaline Phosphatase 234 H (38-126) U/L Albumin 4.1 (3.5-5.1) g/dL
[2024-04-08] MEDS: HYDROmorphone HCL INJ (*CRX) 1 MG/ML SYR 0.5 MG IV PUSH ×2 (20:19→23:25)
[2024-04-08] MEDS: SODIUM CHLORIDE 0.9% IV 1,000 ML 125 ML IV CONT (21:47)
[2024-04-09] VITALS (10 sets, daily range): BP systolic 129–139; BP diastolic 73–79; PULSE 69–100; RESP 14–24; TEMP 36.4–36.6; O2SAT 97–100
[2024-04-09] MEDS: HYDROcodone/acetaminophen (*CRX) 5-325 MG TABLET 1 TAB PO ×2 (04:01→15:24)
[2024-04-09] MEDS: LIDOCAINE 5% PATCH 1 PATCH TRANSDERM (04:01)
[2024-04-09 05:37] LABS: Basophils Percent Auto 0.2 % (0.2-1.2); Hematocrit 39.9 % (37.0-47.0); Hemoglobin 12.1 g/dL (12.0-15.0); Immature Granulocyte Absolute 0.04 K/mm3 (0.00-0.031); Immature Granulocyte Percent A 0.4 % (0-0.5); Lymphocytes Absolute Auto 0.44 K/mm3 (0.9-3.2); Mean Corpuscular HGB Conc 30.3 g/dl (32-36); Mean Corpuscular Hemoglobin 25.1 pg (26-34); Mean Corpuscular Volume 82.6 fl (80-100); Mean Platelet Volume 10.7 fl (7.4-10.4); Monocytes Absolute Auto 0.2 K/mm3 (0.1-0.6); Monocytes Percent Auto 2.2 % (2.6-8.5); Neutrophils Absolute Auto 10.2 K/mm3 (1.3-6.7); Neutrophils Percent Auto 93.2 % (45.5-73.1); Platelet Count Result 196 k/mm3 (150-375); Red Blood Count 4.83 M/mm3 (4.2-5.4); Red Cell Distribution Width 17.4 % (11.5-14.5); White Blood Count 10.9 K/mm3 (4.5-10.0)
[2024-04-09] MEDS: SODIUM CHLORIDE 0.9% IV 1,000 ML 125 ML IV CONT (05:42)
[2024-04-09] MEDS: HYDROmorphone HCL INJ (*CRX) 1 MG/ML SYR 0.5 MG IV PUSH ×2 (05:47→09:58)
[2024-04-09 05:51] LABS: Alanine Aminotransferase 267 U/L (6-35); Albumin Level 3.7 g/dL (3.5-5.1); Alkaline Phosphatase 221 U/L (38-126); Anion Gap 15 mmol/L (4-12); Aspartate Amino Transferase 87 U/L (14-36); Bilirubin,Total 5.9 mg/dL (0.2-1.3); Blood Urea Nitrogen 8 mg/dL (7-17); Calcium 8.1 mg/dL (8.4-10.2); Carbon Dioxide 17 mmol/L (22-30); Chloride 105 mmol/L (98-107); Cholesterol 228 mg/dL (0-200); Estimated CRCL calculation 126 ml/min; Estimated Glomerular Filt Rate > 60; Glucose 176 mg/dL (65-110); HDL Direct 41 mg/dL; Potassium 3.6 mmol/L (3.4-5.0); Sodium 137 mmol/L (137-145); Triglycerides 198 mg/dL (<150)
[2024-04-09 05:54] LABS: LDL Cholesterol Direct 112 mg/dL
[2024-04-09 06:15] LABS: Microcytosis 1+ (NORMAL); Platelet Estimate Adequate (Adequate)
[2024-04-09 06:16] LABS: Schistocytes None Seen
[2024-04-09 06:39] LABS: Lipase 12074 U/L (23-300)
--- NOTE | 2024-04-09 08:00 | PC.NURSE ---
pt taken down for MRI
--- NOTE | 2024-04-09 09:05 | PC.NURSE ---
pt returned to room from MRI
--- NOTE | 2024-04-09 09:06 | PM.IMPN ---
Progress Note: A&P Assessment and Plan (1) Gallstone pancreatitis: Code(s): K85.10 - Biliary acute pancreatitis without necrosis or infection Status: Acute Assessment and Plan: Patient presents with abdominal pain and found to have lipase >40K. CTA chest/abdomen/pelvis shows acute interstitial pancreatitis with prominent nonloculated acute peripancreatic fluid collections and stranding, tiny GS versus porcelain gallbladder with mural calcification along the dependent wall of the otherwise normal GB, no evident choledocholithiasis or intra or extra hepatic biliary ductal dilation and mild dependent atelectasis in the lower lobes. No pulmonary embolism or other acute cardiopulmonary disease. General surgery and GI consulted and appreciate their input. Patient NPO. MRCP showing similar findings from the CT scan and no evidence of choledocholithiasis. Lipase trending downward at 12K. TB worse at 5.9 but otherwise LFTs better. TG 198 Continue NPO status. Continue analgesics and antiemetics p.r.n. Supportive care. Follow LFTs and lipase levels. (2) Cholelithiasis: Qualifiers: Biliary obstruction: with biliary obstruction Cholecystitis presence: without cholecystitis Cholelithiasis location: gallbladder Qualified Code(s): K80.21 - Calculus of gallbladder without cholecystitis with obstruction Code(s): K80.20 - Calculus of gallbladder without cholecystitis without obstruction Status: Chronic Assessment and Plan: As above (3) Transaminitis: Code(s): R74.01 - Elevation of levels of liver transaminase levels Status: Acute Assessment and Plan: As above. (4) Elevated partial thromboplastin time (PTT): Code(s): R79.1 - Abnormal coagulation profile Status: Chronic Assessment and Plan: PTT 197, previously 159 on 06/27/2023. Patient has previously been referred to Hematology but has not follow-up with this. Her mother and maternal grandmother have some form of clotting disorder and are both She has bleeding gums but no miscarriages. 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 Check for antiphospholipid antibody syndrome and von Willebrand's deficiency Oncology/hematology consulted (5) Abnormal uterine bleeding: Code(s): N93.9 - Abnormal uterine and vaginal bleeding, unspecified Status: Acute Assessment and Plan: Patient reports vaginal bleeding since delivery in February. Could be related to of her elevated PTT. home health aide caregiver consulted. Pelvic ultrasound ordered which was unremarkable. Plan Hyperglycemia -probably stress response but will check A1c and place on sliding scale protocol. Diet: NPO DVT Prophylaxis: SCDs Code Status: Full code Subjective Date/time seen: 04/09/24 09:06 Interval history: 29yo female with recent IUP, anxiety and with recently noted elevated PTT here for chest, back and abdominal pain. Patient is 1 month post-. She is not brestfeeding. She is still having acid reflux symptoms pst-. having diarrhea. Does not believe ther is blood in the stool but is having daily vaginal bleeding since the delivery. Her baby girl is happy and healthy. She denies easy bruising or petechia but does have bleeding gums when brushing. She is . No gestational DM. She is hungry. Exam Narrative: AF 97.7 133/74 76 16 100% ra Gen - NARD Chest - CTA bilaterally, nml RR CV - RRR S1/S2 Abd - Soft, +BS, diffusely tender worse in the epigastric region. Ext - No pedal edema Psych - Nml mood and affect Skin - Warm and dry. no excessive bruising or petechia. Objective Data Vital Signs Vital Signs: Vital Signs - 24 hr 04/08/24 09:07 04/08/24 10:03 04/08/24 11:15 Temperature Pulse Rate 81 72 Respiratory Rate 14 16 Blood Pressure 111/79 128/89 Pulse Oximetry 100 99 100 Oxygen Delivery Room Air 04/08/24 12:18 04/08/24 13:39 04/08/24 14:00 Temperature 97.6 F Pulse Rate 71 66 Respiratory Rate 16 16 Blood Pressure 131/82 117/60 Pulse Oximetry 100 100 Oxygen Delivery Room Air 04/08/24 16:00 04/08/24 20:00 04/08/24 20:09 Temperature 97.6 F 97.8 F Pulse Rate 66 70 Respiratory Rate 16 16 Blood Pressure 117/60 144/82 H Pulse Oximetry 100 98 Oxygen Delivery Room Air 04/09/24 01:48 04/09/24 04:51 Temperature 97.7 F 97.7 F Pulse Rate 71 76 Respiratory Rate 16 16 Blood Pressure 135/77 133/74 Pulse Oximetry 99 100 Oxygen Delivery Intake/Output Intake/Output: Intake & Output 04/06/24 04/07/24 04/08/24 04/09/24 23:59 23:59 23:59 23:59 Intake Total 1000 989.6 Balance 1000 989.6 Meds/Results Medications: Active Medications Generic Name Dose Route Start Last Admin Trade Name Freq PRN Reason Stop Dose Admin Acetaminophen 650 mg 04/08/24 13:45 Acetaminophen 325 Mg Tablet PO Q4H PRN Mild Pain (1-3) or Fever Hydrocodone Bitart/Acetaminophen 1 tab 04/08/24 13:45 04/09/24 04:01 Hydrocodone/Acetaminophen (*Crx) 5-325 Mg Tablet PO 1 tab Q4H PRN Administration Pain Rated 4-6 Hydromorphone HCl 0.5 mg 04/08/24 18:45 04/09/24 05:47 Hydromorphone Hcl Inj (*Crx) 1 Mg/Ml Syr IV PUSH 0.5 mg Q3H PRN Administration Pain Rated 7-10 Sodium Chloride 1,000 mls @ 125 mls/hr 04/08/24 11:40 04/09/24 05:42 Normal Saline Iv IV CONT 125 mls/hr .Q8H JULIANO Administration Lidocaine 1 patch 04/08/24 19:02 04/09/24 04:01 Lidocaine 5% Patch TRANSDERM 1 patch Q24H PRN Administration back pain Ondansetron HCl 4 mg 04/08/24 13:45 04/08/24 14:08 Ondansetron Inj 4 Mg/2 Ml Vial IV PUSH 4 mg Q6H PRN Administration Nausea And Vomiting Sertraline HCl 50 mg 04/09/24 09:00 Sertraline Hcl 50 Mg Tablet PO DAILY [facility] Radiology Results: ITS Impressions Chest X-Ray 04/08/24 09:40 IMPRESSION: No focal infiltrate or effusion. Chest/Abdomen/Pelvis CTA 04/08/24 10:45 IMPRESSION: 1. Acute interstitial pancreatitis with prominent nonloculated acute peripancreatic fluid collections and stranding. 2. Tiny gallstones versus porcelain gallbladder with mural calcification along the dependent wall of the otherwise normal gallbladder. No evident choledocholithiasis or intra or extra hepatic biliary ductal dilation. 3. Mild dependent atelectasis in the lower lobes. No pulmonary embolism or other acute cardiopulmonary disease. Labs Labs: Laboratory Results - last 24 hr 04/08/24 04/08/24 04/08/24 09:15 10:12 12:09 WBC 9.4 RBC 5.25 Hgb 13.2 Hct 42.3 MCV 80.6 MCH 25.1 L MCHC 31.2 L RDW 17.2 H Plt Count 179 MPV 10.1 Immature Gran % (Auto) 0.4 Neut % (Auto) 89.6 H Lymph % (Auto) 6.5 L Glascock % (Auto) 2.7 Eos % (Auto) 0.5 Baso % (Auto) 0.3 Lymph # (Auto) 0.61 L Gl[place]ock # (Auto) 0.3 Eos # (Auto) 0.1 Baso # (Auto) 0.0 Abs Immat Gran (auto) 0.04 H Absolute Neuts (auto) 8.4 H Absolute Nucleated RBC 0.000 Band Neutrophils % Nucleated RBC % 0.0 Platelet Estimate Microcytosis Schistocytes PT 13.4 INR 1.0 APTT 197.0 H* 196.9 H* D-Dimer 1.63 H Sodium 140 Potassium 4.1 Chloride 107 Carbon Dioxide 20 L Anion Gap 13 H BUN 12 Creatinine 0.64 L Estim Creat Clear Calc 110 Estimated GFR > 60 Glucose 167 H Calcium 8.8 Total Bilirubin 5.5 H AST 196 H ALT 412 H Alkaline Phosphatase 234 H Troponin I < 0.012 < 0.012 Total Protein 8.0 Albumin 4.1 Triglycerides Cholesterol LDL Cholesterol Direct HDL Direct Lipase > 73175 H 04/08/24 04/09/24 15:09 04:46 WBC 10.9 H RBC 4.83 Hgb 12.1 Hct 39.9 MCV 82.6 MCH 25.1 L MCHC 30.3 L RDW 17.4 H Plt Count 196 MPV 10.7 H Immature Gran % (Auto) 0.4 Neut % (Auto) 93.2 H Lymph % (Auto) 4.0 L Glascock % (Auto) 2.2 L Eos % (Auto) 0.0 Baso % (Auto) 0.2 Lymph # (Auto) 0.44 L Gl[place]ock # (Auto) 0.2 Eos # (Auto) 0.0 Baso # (Auto) 0.0 Abs Immat Gran (auto) 0.04 H Absolute Neuts (auto) 10.2 H Absolute Nucleated RBC 0.000 Band Neutrophils % Not Reportable Nucleated RBC % 0.0 Platelet Estimate Adequate Microcytosis 1+ Schistocytes None seen PT INR APTT D-Dimer Sodium 137 Potassium 3.6 Chloride 105 Carbon Dioxide 17 L Anion Gap 15 H BUN 8 Creatinine 0.55 L Estim Creat Clear Calc 126 Estimated GFR > 60 Glucose 176 H Calcium 8.1 L Total Bilirubin 5.9 H AST 87 H ALT 267 H Alkaline Phosphatase 221 H Troponin I 0.017 D Total Protein 7.0 Albumin 3.7 Triglycerides 198 H Cholesterol 228 H LDL Cholesterol Direct 112 HDL Direct 41 Lipase 75385 H
--- NOTE | 2024-04-09 09:14 | WPDCN ---
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 Patient is 5 weeks She reports persistently heavy vaginal bleeding Patient is concerned she is passing very large clots Patient only requiring 2 pad changes per day Bleeding expectations reviewed with patient Patient found to be hemodynamically stable Patient was recently started on Depo-Provera Will order pelvic ultrasound to evaluate endometrial lining Overall reassured Will continue to follow peripherally Patient to follow up outpatient if heavy bleeding worsens HPI Data of Consult Date/Time: 04/09/24 09:14 Requesting Physician: Jarvis Juarez MD Primary Care Provider: UNKNOWN,DOCTOR Consult Narrative Reason for consult: abnormal uterine bleeding Narrative: Janene Joshua is a 29 year old female currently admitted for pancreatitis. Patient had reported that she is having persistently heavy vaginal bleeding. She is approximately 5 wks . She states she is still passing large blood clots. She states she requires 2 pad changes per day. She received depo-provera for contraception on 03/24/24. She has not had any large volume vaginal bleeding while in the hospital. Review of Systems Review of Systems: All systems reviewed & are unremarkable except as noted in HPI and below PMFSH Past Medical History Medical History Nausea Upper abdominal pain Gallstone pancreatitis Overweight (BMI 25.0-29.9) Anxiety and depression Suppression of menses Encounter for removal of intrauterine contraceptive device Anxiety Surgical History Surgical History H/O gynecological procedure mirena iud insertion - 09/19/2020 Mirena IUD removal 04/07/23 Family History Family History Mother History of blood clots Other Acute myocardial infarction Hypertension Renal failure Social History Social History Smoking status: Never smoker Second hand tobacco smoke exposure: No Alcohol intake: never Substance use: current Substance use type: marijuana Other substance usage details: daily Do You Feel Safe in your Home?: Yes Lack of Transportation: No Lack of Food: Never True Current Housing: I Have Housing Concerned About Future Housing: No Difficulty Paying Gas/Electric Bills: No Difficulty Paying for Meds: No Currently Unemployed: No Education: High School Diploma/GED Difficulty w/ Childcare or Family Care: No Living arrangements: with family Occupation/Education: occupation 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 Gender identity (if verbalized by the patient): Female Sexual Orientation (if Verbalized by the Patient): Straight or Heterosexual Spiritual care concerns: No Meds Home Medications and Allergies Home Medications ?Medication ?Instructions ?Recorded ?Confirmed ?Type medroxyprogesterone 150 mg/mL 150 mg IM [id number] #1 mL 03/21/24 04/08/24 Rx intramuscular syringe (Depo-Provera) sertraline 50 mg tablet 50 mg PO DAILY #30 tabs 03/21/24 04/08/24 Rx lidocaine 5 % topical patch 1 patch transdermal Q24H PRN back 04/08/24 04/08/24 History pain naproxen 500 mg tablet 500 mg PO BID PRN pain 04/08/24 04/08/24 History Allergies Allergy/AdvReac Type Severity Reaction Status Date / Time alprazolam (From Xanax) Allergy Hives Verified 04/08/24 09:07 Vital Signs Vital Signs - 24 hr 04/08/24 10:03 04/08/24 11:15 04/08/24 12:18 Temperature Pulse Rate 81 72 71 Respiratory Rate 14 16 16 Blood Pressure 111/79 128/89 131/82 Pulse Oximetry 99 100 100 Oxygen Delivery 04/08/24 13:39 04/08/24 14:00 04/08/24 16:00 Temperature 97.6 F 97.6 F Pulse Rate 66 66 Respiratory Rate 16 16 Blood Pressure 117/60 117/60 Pulse Oximetry 100 100 Oxygen Delivery Room Air 04/08/24 20:00 04/08/24 20:09 04/09/24 01:48 Temperature 97.8 F 97.7 F Pulse Rate 70 71 Respiratory Rate 16 16 Blood Pressure 144/82 H 135/77 Pulse Oximetry 98 99 Oxygen Delivery Room Air 04/09/24 04:51 Temperature 97.7 F Pulse Rate 76 Respiratory Rate 16 Blood Pressure 133/74 Pulse Oximetry 100 Oxygen Delivery Exam Const: General: cooperative Resp: Effort & Inspection: normal respiratory effort and able to speak in complete sentences Cardio: Rate: regular rate GI: GI Palp: Yes abdominal tenderness Skin: General skin exam: jaundice Psych: Appearance: grossly normal Mental Status: mental status grossly normal Results Labs 04/09/24 04:46 04/09/24 04:46 Labs: Short CBC 04/08/24 04/09/24 Range/Units 09:15 04:46 WBC 9.4 10.9 H (4.5-10.0) K/mm3 Hgb 13.2 12.1 (12.0-15.0) g/dL Hct 42.3 39.9 (37.0-47.0) % Plt Count 179 196 (150-375) k/mm3 [facility] 04/08/24 04/09/24 09:15 04:46 Sodium 140 137 Potassium 4.1 3.6 Chloride 107 105 Carbon Dioxide 20 L 17 L BUN 12 8 Creatinine 0.64 L 0.55 L Glucose 167 H 176 H Calcium 8.8 8.1 L Cardiac Enzymes 04/08/24 04/08/24 04/08/24 Range/Units 09:15 12:09 15:09 Troponin I < 0.012 < 0.012 0.017 D (0.000-0.034) ng/mL Liver Function 04/08/24 04/09/24 Range/Units 09:15 04:46 Total Bilirubin 5.5 H 5.9 H (0.2-1.3) mg/dL AST 196 H 87 H (14-36) U/L ALT 412 H 267 H (6-35) U/L Alkaline Phosphatase 234 H 221 H (38-126) U/L Albumin 4.1 3.7 (3.5-5.1) g/dL
[2024-04-09] MEDS: ONDANSETRON INJ 4 MG/2 ML VIAL IV PUSH ×2 (09:58→15:29)
--- NOTE | 2024-04-09 10:25 | WPDGIPROGNO ---
Progress Note: A&P Assessment and Plan (1) Gallstone pancreatitis: Code(s): K85.10 - Biliary acute pancreatitis without necrosis or infection Status: Acute Assessment and Plan: still with pain on iv fluids normal hgb and bun pending mrcp surgery on board- noted cholelithiasis, probably cause of pancreatitis (2) Upper abdominal pain: Code(s): R10.10 - Upper abdominal pain, unspecified Status: Acute Assessment and Plan: still with pain (3) Transaminitis: Code(s): R74.01 - Elevation of levels of liver transaminase levels Status: Acute Assessment and Plan: from pancreatitis (4) Elevated partial thromboplastin time (PTT): Code(s): R79.1 - Abnormal coagulation profile Status: Acute (5) Nausea: Code(s): R11.0 - Nausea Status: Acute Subjective Date/time seen: 04/09/24 10:25 Interval history: still uncomfortable, pain 10/19 Review of Systems Review of Systems: All systems reviewed & are unremarkable except as noted in HPI and below Exam Const: General: no acute distress and uncomfortable (because of pain) Nutritional Appearance: average body habitus Orientation/consciousness: patient oriented x3 HENMT: Head: normocephalic and atraumatic Ears: hearing grossly normal bilaterally Eyes: General: appearance normal, both eyes and all related structures Neck: Neck: normal visual inspection and full ROM Resp: Effort & Inspection: no respiratory distress Auscultation: clear to auscultation bilaterally Cardio: Rate: regular rate Rhythm: regular rhythm GI: Inspection: distended and no visible herniation GI Palp: Yes Soft to palpation (some firmness in the mid upper abdomen), Yes Tenderness to palpation present (GI) (diffusely tender, worse across the upper abdomen) and Yes Guarding due to palpation present (GI) (upper abdomen) Auscultation: normal bowel sounds Skin: General skin exam: normal color Neuro: General: moves all extremities and no focal motor deficits Speech: normal speech Motor exam (neuro): 5/5 motor strength present throughout Extrem: General: normal to inspection and no edema Psych: Mental Status: mental status grossly normal Attitude: cooperative Insight: Good insight present (Psych) Judgement: Good judgement present (Psych) Objective Data Vital Signs Vital Signs: Vital Signs - 24 hr 04/08/24 11:15 04/08/24 12:18 04/08/24 13:39 Temperature Pulse Rate 72 71 Respiratory Rate 16 16 Blood Pressure 128/89 131/82 Pulse Oximetry 100 100 Oxygen Delivery Room Air 04/08/24 14:00 04/08/24 16:00 04/08/24 20:00 Temperature 97.6 F 97.6 F Pulse Rate 66 66 Respiratory Rate 16 16 Blood Pressure 117/60 117/60 Pulse Oximetry 100 100 Oxygen Delivery Room Air 04/08/24 20:09 04/09/24 01:48 04/09/24 04:51 Temperature 97.8 F 97.7 F 97.7 F Pulse Rate 70 71 76 Respiratory Rate 16 16 16 Blood Pressure 144/82 H 135/77 133/74 Pulse Oximetry 98 99 100 Oxygen Delivery Intake/Output Intake/Output: Intake & Output 04/06/24 04/07/24 04/08/24 04/09/24 23:59 23:59 23:59 23:59 Intake Total 1000 989.6 Balance 1000 989.6 Meds/Results Medications: Active Medications Generic Name Dose Route Start Last Admin Trade Name Freq PRN Reason Stop Dose Admin Acetaminophen 650 mg 04/08/24 13:45 Acetaminophen 325 Mg Tablet PO Q4H PRN Mild Pain (1-3) or Fever Hydrocodone Bitart/Acetaminophen 1 tab 04/08/24 13:45 04/09/24 04:01 Hydrocodone/Acetaminophen (*Crx) 5-325 Mg Tablet PO 1 tab Q4H PRN Administration Pain Rated 4-6 Hydromorphone HCl 0.5 mg 04/08/24 18:45 04/09/24 09:58 Hydromorphone Hcl Inj (*Crx) 1 Mg/Ml Syr IV PUSH 0.5 mg Q3H PRN Administration Pain Rated 7-10 Sodium Chloride 1,000 mls @ 125 mls/hr 04/08/24 11:40 04/09/24 05:42 Normal Saline Iv IV CONT 125 mls/hr .Q8H JULIANO Administration Lidocaine 1 patch 04/08/24 19:02 04/09/24 04:01 Lidocaine 5% Patch TRANSDERM 1 patch Q24H PRN Administration back pain Ondansetron HCl 4 mg 04/08/24 13:45 04/09/24 09:58 Ondansetron Inj 4 Mg/2 Ml Vial IV PUSH 4 mg Q6H PRN Administration Nausea And Vomiting Sertraline HCl 50 mg 04/09/24 09:00 04/09/24 09:59 Sertraline Hcl 50 Mg Tablet PO Not Given DAILY JULIANO Radiology Results: ITS Impressions Chest X-Ray 04/08/24 09:40 IMPRESSION: No focal infiltrate or effusion. Chest/Abdomen/Pelvis CTA 04/08/24 10:45 IMPRESSION: 1. Acute interstitial pancreatitis with prominent nonloculated acute peripancreatic fluid collections and stranding. 2. Tiny gallstones versus porcelain gallbladder with mural calcification along the dependent wall of the otherwise normal gallbladder. No evident choledocholithiasis or intra or extra hepatic biliary ductal dilation. 3. Mild dependent atelectasis in the lower lobes. No pulmonary embolism or other acute cardiopulmonary disease. Labs Labs: Laboratory Results - last 24 hr 04/08/24 04/08/24 04/08/24 09:15 10:12 12:09 WBC RBC Hgb Hct MCV MCH MCHC RDW Plt Count MPV Immature Gran % (Auto) Neut % (Auto) Lymph % (Auto) [place] % (Auto) Eos % (Auto) Baso % (Auto) Lymph # (Auto) [place] # (Auto) Eos # (Auto) Baso # (Auto) Abs Immat Gran (auto) Absolute Neuts (auto) Absolute Nucleated RBC Band Neutrophils % Nucleated RBC % Platelet Estimate Microcytosis Schistocytes APTT 196.9 H* Sodium Potassium Chloride Carbon Dioxide Anion Gap BUN Creatinine Estim Creat Clear Calc Estimated GFR Glucose Calcium Total Bilirubin AST ALT Alkaline Phosphatase Troponin I < 0.012 Total Protein Albumin Triglycerides Cholesterol LDL Cholesterol Direct HDL Direct Lipase > 08022 H 04/08/24 04/09/24 15:09 04:46 WBC 10.9 H RBC 4.83 Hgb 12.1 Hct 39.9 MCV 82.6 MCH 25.1 L MCHC 30.3 L RDW 17.4 H Plt Count 196 MPV 10.7 H Immature Gran % (Auto) 0.4 Neut % (Auto) 93.2 H Lymph % (Auto) 4.0 L [place] % (Auto) 2.2 L Eos % (Auto) 0.0 Baso % (Auto) 0.2 Lymph # (Auto) 0.44 L [place] # (Auto) 0.2 Eos # (Auto) 0.0 Baso # (Auto) 0.0 Abs Immat Gran (auto) 0.04 H Absolute Neuts (auto) 10.2 H Absolute Nucleated RBC 0.000 Band Neutrophils % Not Reportable Nucleated RBC % 0.0 Platelet Estimate Adequate Microcytosis 1+ Schistocytes None seen APTT Sodium 137 Potassium 3.6 Chloride 105 Carbon Dioxide 17 L Anion Gap 15 H BUN 8 Creatinine 0.55 L Estim Creat Clear Calc 126 Estimated GFR > 60 Glucose 176 H Calcium 8.1 L Total Bilirubin 5.9 H AST 87 H ALT 267 H Alkaline Phosphatase 221 H Troponin I 0.017 D Total Protein 7.0 Albumin 3.7 Triglycerides 198 H Cholesterol 228 H LDL Cholesterol Direct 112 HDL Direct 41 Lipase 09742 H
--- NOTE | 2024-04-09 11:09 | PC.NURSE ---
pt taken down for ultrasound
--- NOTE | 2024-04-09 11:30 | PC.NURSE ---
pt returned to room from ultrasound
--- NOTE | 2024-04-09 17:07 | P.PNGS_ITS ---
Progress Note: A&P Assessment and Plan (1) Acute pancreatitis: Qualifiers: Acute pancreatitis complication: unspecified Pancreatitis type: unspecified pancreatitis type Qualified Code(s): K85.90 - Acute pancreatitis without necrosis or infection, unspecified Code(s): K85.90 - Acute pancreatitis without necrosis or infection, unspecified Status: Acute Assessment and Plan: Results of CT imaging and MRCP suggest her pain is primarily due to acute pancreatitis. She does have some gallstones but no choledocholithiasis. MRCP suggests small gallstones but an otherwise unremarkable gallbladder. Pain control inadequate. 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 She will continue NPO except ice chips. Monitor her pain and labs. May need repeat CT scan if does not improve next couple of days. (2) Cholelithiasis: Qualifiers: Biliary obstruction: with biliary obstruction Cholecystitis presence: without cholecystitis Cholelithiasis location: gallbladder Qualified Code(s): K80.21 - Calculus of gallbladder without cholecystitis with obstruction Code(s): K80.20 - Calculus of gallbladder without cholecystitis without obstruction Status: Chronic Assessment and Plan: Will need eventual gallbladder removal but no evidence of choledocholithiasis and no evidence of acute cholecystitis on imaging. (3) Transaminitis: Code(s): R74.01 - Elevation of levels of liver transaminase levels Status: Acute Assessment and Plan: LFTs trending down but bilirubin maintains elevated and higher today. (4) Elevated partial thromboplastin time (PTT): Code(s): R79.1 - Abnormal coagulation profile Status: Chronic Assessment and Plan: Pending hematology consultation. Patient tells me this was noted previously when it was found she was . She was referred for evaluation but did not follow-up. Denies any significant amount of bleeding with delivery. Delivery was 1 month ago. Subjective Subjective Date/Time Seen: 04/09/24 17:07 Patient reports: still having pain (Pain is just as bad, epigastric primarily) and afebrile Interval history: Previous doses of morphine sulfate were insufficient pain relief but did not make her nauseated. She has been taking Dilaudid but promptly develops nausea and vomiting after each dose. This contributing to her persistent pain. Review of Systems Review of Systems: All systems reviewed & are unremarkable except as noted in HPI and below (HPI) Exam Const: General: cooperative, no acute distress, ill appearing, lethargic, tired appearing and uncomfortable Orientation/consciousness: patient oriented x3 GI: Inspection: normal to inspection, no abdominal wall ecchymosis, non- distended and no visible herniation GI Palp: Yes abdominal tenderness (Diffuse across upper abdomen, worst in epigastric area), Yes Firmness to palpation present (GI), Yes Guarding due to palpation present (GI), No Hernia present and No Palpable mass present Auscultation: Hypoactive bowel sounds present Objective Data Vital Signs Vital Signs: Vital Signs - 24 hr 04/08/24 20:00 04/08/24 20:09 04/09/24 01:48 Temperature 36.6 C 36.5 C Pulse Rate 70 71 Respiratory Rate 16 16 Blood Pressure 144/82 H 135/77 Pulse Oximetry 98 99 Oxygen Delivery Room Air 04/09/24 04:51 04/09/24 08:00 04/09/24 12:00 Temperature 36.5 C 36.4 C Pulse Rate 76 69 Respiratory Rate 16 16 Blood Pressure 133/74 129/73 Pulse Oximetry 100 100 Oxygen Delivery Room Air Intake/Output Intake/Output: Intake & Output 04/06/24 04/07/24 04/08/24 04/09/24 23:59 23:59 23:59 23:59 Intake Total 1000 989.6 Balance 1000 989.6 Meds/Results Medications: Active Medications Generic Name Dose Route Start Last Admin Trade Name Freq PRN Reason Stop Dose Admin Acetaminophen 650 mg 04/08/24 13:45 Acetaminophen 325 Mg Tablet PO Q4H PRN Mild Pain (1-3) or Fever Sodium Chloride 1,000 mls @ 80 mls/hr 04/08/24 11:40 04/09/24 05:42 Normal Saline Iv IV CONT 125 mls/hr .[id number] JULIANO Administration Morphine Sulfate 30 mg in 30 mls @ 1 mls/hr 04/09/24 17:03 Morphine Sulfate [employer] IV CONT PRN PRN SOCIAL MEDIA COORDINATOR Management Protocol 1 MG/HR Ibuprofen 800 mg in 200 mls @ 400 mls/hr 04/09/24 17:05 Caldolor 800 Mg/200 Ml IVPB Q6H JULIANO Lidocaine 1 patch 04/08/24 19:02 04/09/24 04:01 Lidocaine 5% Patch TRANSDERM 1 patch Q24H PRN Administration back pain Ondansetron HCl 4 mg 04/08/24 13:45 04/09/24 15:29 Ondansetron Inj 4 Mg/2 Ml Vial IV PUSH 4 mg Q6H PRN Administration Nausea And Vomiting Sertraline HCl 50 mg 04/09/24 09:00 04/09/24 09:59 Sertraline Hcl 50 Mg Tablet PO Not Given DAILY JULIANO Radiology Results: ITS Impressions Chest X-Ray 04/08/24 09:40 IMPRESSION: No focal infiltrate or effusion. Chest/Abdomen/Pelvis CTA 04/08/24 10:45 IMPRESSION: 1. Acute interstitial pancreatitis with prominent nonloculated acute peripancreatic fluid collections and stranding. 2. Tiny gallstones versus porcelain gallbladder with mural calcification along the dependent wall of the otherwise normal gallbladder. No evident choledocholithiasis or intra or extra hepatic biliary ductal dilation. 3. Mild dependent atelectasis in the lower lobes. No pulmonary embolism or other acute cardiopulmonary disease. MRCP 04/09/24 12:03 IMPRESSION: 1. Multiple tiny gallstones in the dependent aspect of the normal gallbladder. 2. Diffuse acute interstitial pancreatitis with prominent nonloculated peripancreatic fluid tracking into the intra and retroperitoneal soft tissue tissues. 3. No intra or extrahepatic biliary ductal dilation or evident choledocholithiasis. 4. Increased signal in the dependent lower lobes which could represent atelectasis or pneumonia. ADDENDUM: 04/09/24 1301 CORRECTION: Incorrect contrast agent is noted in the technique section. The study was performed without and with 16 mL ProHance intravenous contrast. Pelvis Ultrasound 04/09/24 13:37 IMPRESSION: 1. Unremarkable pelvic ultrasound. Labs Labs: Laboratory Results - last 24 hr 04/09/24 04:46 WBC 10.9 H RBC 4.83 Hgb 12.1 Hct 39.9 MCV 82.6 MCH 25.1 L MCHC 30.3 L RDW 17.4 H Plt Count 196 MPV 10.7 H Immature Gran % (Auto) 0.4 Neut % (Auto) 93.2 H Lymph % (Auto) 4.0 L [place] % (Auto) 2.2 L Eos % (Auto) 0.0 Baso % (Auto) 0.2 Lymph # (Auto) 0.44 L [place] # (Auto) 0.2 Eos # (Auto) 0.0 Baso # (Auto) 0.0 Abs Immat Gran (auto) 0.04 H Absolute Neuts (auto) 10.2 H Absolute Nucleated RBC 0.000 Band Neutrophils % Not Reportable Nucleated RBC % 0.0 Platelet Estimate Adequate Microcytosis 1+ Schistocytes None seen Sodium 137 Potassium 3.6 Chloride 105 Carbon Dioxide 17 L Anion Gap 15 H BUN 8 Creatinine 0.55 L Estim Creat Clear Calc 126 Estimated GFR > 60 Glucose 176 H Calcium 8.1 L Total Bilirubin 5.9 H AST 87 H ALT 267 H Alkaline Phosphatase 221 H Total Protein 7.0 Albumin 3.7 Triglycerides 198 H Cholesterol 228 H LDL Cholesterol Direct 112 HDL Direct 41 Lipase 20634 H
[2024-04-09] MEDS: SODIUM CHLORIDE 0.9% IV 1,000 ML 80 ML IV CONT (18:18)
[2024-04-09] MEDS: IBUPROFEN IV 800 MG/200 ML 800 MG/200 ML BAG 400 MG IVPB (18:19)
[2024-04-09] MEDS: PANTOPRAZOLE SODIUM IV 40 MG VIAL IV PUSH (19:58)
[2024-04-09] MEDS: SODIUM CHLORIDE 0.9% IV 250 ML 30 ML (20:30)
[2024-04-09] MEDS: MORPHINE SULFATE PCA (*CRX) 30 MG/30 ML SYR IV CONT (20:32)
[2024-04-10] VITALS (17 sets, daily range): BP systolic 110–136; BP diastolic 50–78; PULSE 70–142; RESP 14–24; TEMP 36.3–36.5; O2SAT 93–98
[2024-04-10] MEDS: IBUPROFEN IV 800 MG/200 ML 800 MG/200 ML BAG 400 MG IVPB ×4 (00:13→18:02)
[2024-04-10 03:13] LABS: Glucose Point of Care 119 mg/dl (65-105)
[2024-04-10] MEDS: LIDOCAINE 5% PATCH 1 PATCH TRANSDERM (05:45)
[2024-04-10] MEDS: SODIUM CHLORIDE 0.9% IV 1,000 ML 80 ML IV CONT (05:47)
[2024-04-10 06:30] LABS: Basophils Percent Auto 0.2 % (0.2-1.2); Eosinophils Percent Auto 0.2 % (0-4.4); Hemoglobin 10.8 g/dL (12.0-15.0); Immature Granulocyte Absolute 0.06 K/mm3 (0.00-0.031); Immature Granulocyte Percent A 0.5 % (0-0.5); Lymphocytes Absolute Auto 0.66 K/mm3 (0.9-3.2); Lymphocytes Percent Auto 5.1 % (18.3-44.2); Mean Corpuscular HGB Conc 31.8 g/dl (32-36); Mean Corpuscular Hemoglobin 25.9 pg (26-34); Mean Corpuscular Volume 81.5 fl (80-100); Mean Platelet Volume 10.6 fl (7.4-10.4); Monocytes Absolute Auto 0.3 K/mm3 (0.1-0.6); Monocytes Percent Auto 2.6 % (2.6-8.5); Neutrophils Absolute Auto 11.8 K/mm3 (1.3-6.7); Neutrophils Percent Auto 91.4 % (45.5-73.1); Platelet Count Result 172 k/mm3 (150-375); Red Blood Count 4.17 M/mm3 (4.2-5.4); White Blood Count 12.9 K/mm3 (4.5-10.0)
[2024-04-10 06:33] LABS: Glucose Point of Care 122 mg/dl (65-105)
--- NOTE | 2024-04-10 06:51 | P.PNIM_ITS ---
Progress Note: A&P Assessment and Plan (1) Gallstone pancreatitis: Code(s): K85.10 - Biliary acute pancreatitis without necrosis or infection Status: Acute Assessment and Plan: Patient presents with abdominal pain and found to have lipase >40K. CTA chest/abdomen/pelvis shows acute interstitial pancreatitis with prominent nonloculated acute peripancreatic fluid collections and stranding, tiny GS versus porcelain gallbladder with mural calcification along the dependent wall of the otherwise normal GB, no evident choledocholithiasis or intra or extra hepatic biliary ductal dilation and mild dependent atelectasis in the lower lobes. No pulmonary embolism or other acute cardiopulmonary disease. MRCP showing similar findings from the CT scan and no evidence of choledocholithiasis. Patient with GS Pancreatitis. General surgery and GI consulted and appreciate their input. TG 198. Lipase trending downward at 2K. TB better at 2.1 and other liver tests continue to trend down. Continue NPO status. Continue analgesics and antiemetics p.r.n. Supportive care. Follow LFTs and lipase levels. (2) Cholelithiasis: Qualifiers: Biliary obstruction: with biliary obstruction Cholecystitis presence: without cholecystitis Cholelithiasis location: gallbladder Qualified Code(s): K80.21 - Calculus of gallbladder without cholecystitis with obstruction Code(s): K80.20 - Calculus of gallbladder without cholecystitis without obstruction Status: Chronic Assessment and Plan: As above (3) Transaminitis: Code(s): R74.01 - Elevation of levels of liver transaminase levels Status: Acute Assessment and Plan: As above. (4) Elevated partial thromboplastin time (PTT): Code(s): R79.1 - Abnormal coagulation profile Status: Chronic Assessment and Plan: PTT 197, previously 159 on 06/27/2023. Patient has previously been referred to Hematology but has not follow-up with this. Her mother and maternal grandmother have some form of clotting disorder and are both She has bleeding gums but no miscarriages or early bruising. 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 Check for antiphospholipid antibody syndrome and von Willebrand's deficiency Oncology/hematology consulted (5) Abnormal uterine bleeding: Code(s): N93.9 - Abnormal uterine and vaginal bleeding, unspecified Status: Acute Assessment and Plan: Patient reports vaginal bleeding since delivery in February. Pelvic ultrasound was unremarkable. Could be related to of her elevated PTT. HH pending today. installation superintendent consulted and appreciate their input (6) Hypokalemia: Code(s): E87.6 - Hypokalemia Status: Acute Assessment and Plan: Potassium 2.7 this morning. Will order replacement. Check Mag level. Plan Hyperglycemia -probably stress response. A1c pending. Continue sliding scale protocol. Diet: NPO DVT Prophylaxis: SCDs Code Status: Full code Subjective Date/time seen: 04/10/24 06:51 Interval history: 29yo female with recent IUP, anxiety and with recently noted elevated PTT here for chest, back and abdominal pain. Pain pump started yesterday. Abd Pain better controlled today. No flatus or BMs. No Cp or SOB. Exam Narrative: AF 97.7 136/63 80 20 96% ra Gen - NARD Chest - CTA bilaterally, nml RR CV - RRR S1/S2 Abd - Soft, +BS, diffusely tender with some guarding in the epigastric area Ext - No pedal edema Psych - Nml mood and affect Skin - Warm and dry. Objective Data Vital Signs Vital Signs: Vital Signs - 24 hr 04/09/24 08:00 04/09/24 12:00 04/09/24 16:00 Temperature 97.6 F 97.9 F Pulse Rate 69 73 Respiratory Rate 16 16 Blood Pressure 129/73 132/78 Pulse Oximetry 100 100 Oxygen Delivery Room Air 04/09/24 18:15 04/09/24 20:32 04/09/24 21:00 Temperature 97.8 F Pulse Rate 98 Respiratory Rate 16 24 H 20 Blood Pressure 139/79 Pulse Oximetry 99 98 97 Oxygen Delivery 04/09/24 21:56 04/09/24 22:06 04/09/24 23:15 Temperature 97.6 F Pulse Rate 100 Respiratory Rate 14 18 18 Blood Pressure 134/76 Pulse Oximetry 97 97 98 Oxygen Delivery 04/10/24 01:57 04/10/24 03:13 04/10/24 05:48 Temperature 97.7 F 97.7 F Pulse Rate 70 80 Respiratory Rate 14 18 16 Blood Pressure 135/68 136/63 Pulse Oximetry 95 97 95 Oxygen Delivery 04/10/24 06:33 Temperature Pulse Rate Respiratory Rate 20 Blood Pressure Pulse Oximetry 96 Oxygen Delivery Intake/Output Intake/Output: Intake & Output 04/07/24 04/08/24 04/09/24 04/10/24 23:59 23:59 23:59 23:59 Intake Total 1000 2189.6 1118.7 Balance 1000 2189.6 1118.7 Meds/Results Medications: Active Medications Generic Name Dose Route Start Last Admin Trade Name Freq PRN Reason Stop Dose Admin Acetaminophen 650 mg 04/08/24 13:45 Acetaminophen 325 Mg Tablet PO Q4H PRN Mild Pain (1-3) or Fever Dextrose 12.5 gm 04/09/24 18:37 Dextrose 50% 25 Gm/50 Ml Syringe IV PUSH PRN PRN Hypoglycemia Protocol Glucagon 1 mg 04/09/24 18:37 Glucagon For Inj 1 Mg Vial IM PRN PRN Hypoglycemia Protocol Glucose 15 gm 04/09/24 18:37 Glucose Oral Gel 15 Gm Of Glucse In 37.5 Gm Tube PO PRN PRN Hypoglycemia Protocol Sodium Chloride 1,000 mls @ 80 mls/hr 04/08/24 11:40 04/10/24 05:47 Normal Saline Iv IV CONT 80 mls/hr .[id number] JULIANO Administration Morphine Sulfate 30 mg in 30 mls @ 1 mls/hr 04/09/24 17:30 04/09/24 20:32 Morphine Sulfate Fruit Raiser IV CONT 1 mg/hr PRN PRN 1 mls/hr USER EXPERIENCE RESEARCHER Management Administration Protocol 1 MG/HR Ibuprofen 800 mg in 200 mls @ 400 mls/hr 04/09/24 18:00 04/10/24 05:26 Caldolor 800 Mg/200 Ml IVPB 400 mls/hr Q6H JULIANO Administration Dextrose 1,000 mls @ 100 mls/hr 04/09/24 18:37 Dextrose 5% 1,000 Ml IVPB PRN PRN Hypoglycemia Protocol Insulin Aspart 2 - 5 units 04/10/24 00:00 04/10/24 05:46 Insulin Aspart (*Bkc) 100 Units/Ml SUB-Q Not Given Q6HR JULIANO Protocol Lidocaine 1 patch 04/08/24 19:02 04/10/24 05:45 Lidocaine 5% Patch TRANSDERM 1 patch Q24H PRN Administration back pain Naloxone HCl 0.1 mg 04/09/24 21:04 Naloxone Hcl 0.4 Mg/Ml Vial IV PUSH Q5MIN PRN Opioid Reversal Ondansetron HCl 4 mg 04/08/24 13:45 04/09/24 15:29 Ondansetron Inj 4 Mg/2 Ml Vial IV PUSH 4 mg Q6H PRN Administration Nausea And Vomiting Pantoprazole Sodium 40 mg 04/10/24 09:00 Pantoprazole Sodium Iv 40 Mg Vial IV PUSH QAM JULIANO Sertraline HCl 50 mg 04/09/24 09:00 04/09/24 09:59 Sertraline Hcl 50 Mg Tablet PO Not Given DAILY [facility] Radiology Results: ITS Impressions Chest X-Ray 04/08/24 09:40 IMPRESSION: No focal infiltrate or effusion. Chest/Abdomen/Pelvis CTA 04/08/24 10:45 IMPRESSION: 1. Acute interstitial pancreatitis with prominent nonloculated acute peripancreatic fluid collections and stranding. 2. Tiny gallstones versus porcelain gallbladder with mural calcification along the dependent wall of the otherwise normal gallbladder. No evident choledocholithiasis or intra or extra hepatic biliary ductal dilation. 3. Mild dependent atelectasis in the lower lobes. No pulmonary embolism or other acute cardiopulmonary disease. MRCP 04/09/24 12:03 IMPRESSION: 1. Multiple tiny gallstones in the dependent aspect of the normal gallbladder. 2. Diffuse acute interstitial pancreatitis with prominent nonloculated peripancreatic fluid tracking into the intra and retroperitoneal soft tissue tissues. 3. No intra or extrahepatic biliary ductal dilation or evident choledocholithiasis. 4. Increased signal in the dependent lower lobes which could represent atelectasis or pneumonia. ADDENDUM: 04/09/24 1301 CORRECTION: Incorrect contrast agent is noted in the technique section. The study was performed without and with 16 mL ProHance intravenous contrast. Pelvis Ultrasound 04/09/24 13:37 IMPRESSION: 1. Unremarkable pelvic ultrasound. Labs Labs: Laboratory Results - last 24 hr 04/10/24 04/10/24 00:23 05:40 POC Capillary Glucose 119 H 122 H
[2024-04-10 06:52] LABS: Alanine Aminotransferase 150 U/L (6-35); Albumin Level 3.1 g/dL (3.5-5.1); Alkaline Phosphatase 178 U/L (38-126); Anion Gap 12 mmol/L (4-12); Aspartate Amino Transferase 29 U/L (14-36); Bilirubin,Total 2.1 mg/dL (0.2-1.3); Blood Urea Nitrogen 5 mg/dL (7-17); Calcium 7.5 mg/dL (8.4-10.2); Carbon Dioxide 22 mmol/L (22-30); Chloride 105 mmol/L (98-107); Estimated CRCL calculation 145 ml/min; Estimated Glomerular Filt Rate > 60; Glucose 125 mg/dL (65-110); Potassium 2.7 mmol/L (3.4-5.0); Sodium 139 mmol/L (137-145)
[2024-04-10 06:57] LABS: Lipase 2296 U/L (23-300)
[2024-04-10 08:13] LABS: Anisocytosis 1+; Platelet Estimate Adequate (Adequate); Schistocytes None Seen
[2024-04-10] MEDS: PANTOPRAZOLE SODIUM IV 40 MG VIAL IV PUSH (08:19)
[2024-04-10] MEDS: POTASSIUM CHLORIDE INJ 40 MEQ in SODIUM CHLORIDE 0.9% IV 500 ML 130 MEQ IVPB ×2 (08:23→15:36)
[2024-04-10 08:36] LABS: Magnesium 1.8 mg/dL (1.6-2.3)
[2024-04-10 09:28] LABS: Hemoglobin A1C 4.8 % (<5.7)
--- NOTE | 2024-04-10 10:55 | WPDGIPROGNO ---
Progress Note: A&P Assessment and Plan (1) Gallstone pancreatitis: Code(s): K85.10 - Biliary acute pancreatitis without necrosis or infection Status: Acute Assessment and Plan: MRCP reviewed, no need of ercp, noted GS and interstitial pancreatitis on iv fluids, also REIMBURSEMENT SPECIALIST for pain control surgery on board- noted cholelithiasis, probably cause of pancreatitis bili down to 2 from 5 (2) Upper abdominal pain: Code(s): R10.10 - Upper abdominal pain, unspecified Status: Acute Assessment and Plan: still with pain (3) Transaminitis: Code(s): R74.01 - Elevation of levels of liver transaminase levels Status: Acute Assessment and Plan: from pancreatitis (4) Elevated partial thromboplastin time (PTT): Code(s): R79.1 - Abnormal coagulation profile Status: Chronic (5) Nausea: Code(s): R11.0 - Nausea Status: Acute Subjective Date/time seen: 04/10/24 10:55 Interval history: still with pain and requiring REIMBURSEMENT SPECIALIST Review of Systems Review of Systems: All systems reviewed & are unremarkable except as noted in HPI and below Exam Const: General: cooperative, no acute distress, ill appearing, tired appearing and uncomfortable Orientation/consciousness: patient oriented x3 HENMT: Face/Nose/Sinus: Normal nares present Eyes: Sclera: sclerae normal Neck: Neck: supple Resp: Effort & Inspection: normal respiratory effort Cardio: Rate: regular rate GI: Inspection: normal to inspection and non-distended GI Palp: Yes abdominal tenderness (Diffuse across upper abdomen, worst in epigastric area) and Yes Guarding due to palpation present (GI) Auscultation: Hypoactive bowel sounds present Skin: General skin exam: no rashes or lesions noted Neuro: Speech: normal speech Motor exam (neuro): 5/5 motor strength present throughout Extrem: General: normal to inspection Psych: Affect: Anxious affect present Objective Data Vital Signs Vital Signs: Vital Signs - 24 hr 04/09/24 12:00 04/09/24 16:00 04/09/24 18:15 Temperature 97.6 F 97.9 F 97.8 F Pulse Rate 69 73 98 Respiratory Rate 16 16 16 Blood Pressure 129/73 132/78 139/79 Pulse Oximetry 100 100 99 Oxygen Delivery Fraction of Inspired Oxygen 04/09/24 20:32 04/09/24 21:00 04/09/24 21:56 Temperature 97.6 F Pulse Rate 100 Respiratory Rate 24 H 20 14 Blood Pressure 134/76 Pulse Oximetry 98 97 97 Oxygen Delivery Fraction of Inspired Oxygen 04/09/24 22:06 04/09/24 23:15 04/10/24 01:57 Temperature 97.7 F Pulse Rate 70 Respiratory Rate 18 18 14 Blood Pressure 135/68 Pulse Oximetry 97 98 95 Oxygen Delivery Fraction of Inspired Oxygen 04/10/24 03:13 04/10/24 05:48 04/10/24 06:33 Temperature 97.7 F Pulse Rate 80 Respiratory Rate 18 16 20 Blood Pressure 136/63 Pulse Oximetry 97 95 96 Oxygen Delivery Fraction of Inspired Oxygen 04/10/24 08:00 04/10/24 08:19 04/10/24 09:03 Temperature 97.4 F L Pulse Rate 124 H 120 H Respiratory Rate 16 22 H Blood Pressure 127/74 Pulse Oximetry 96 96 Oxygen Delivery Room Air Room Air Fraction of Inspired Oxygen 21 Intake/Output Intake/Output: Intake & Output 04/07/24 04/08/24 04/09/24 04/10/24 23:59 23:59 23:59 23:59 Intake Total 1000 2189.6 1118.7 Balance 1000 2189.6 1118.7 Meds/Results Medications: Active Medications Generic Name Dose Route Start Last Admin Trade Name Freq PRN Reason Stop Dose Admin Acetaminophen 650 mg 04/08/24 13:45 Acetaminophen 325 Mg Tablet PO Q4H PRN Mild Pain (1-3) or Fever Dextrose 12.5 gm 04/09/24 18:37 Dextrose 50% 25 Gm/50 Ml Syringe IV PUSH PRN PRN Hypoglycemia Protocol Glucagon 1 mg 04/09/24 18:37 Glucagon For Inj 1 Mg Vial IM PRN PRN Hypoglycemia Protocol Glucose 15 gm 04/09/24 18:37 Glucose Oral Gel 15 Gm Of Glucse In 37.5 Gm Tube PO PRN PRN Hypoglycemia Protocol Sodium Chloride 1,000 mls @ 80 mls/hr 04/08/24 11:40 04/10/24 05:47 Normal Saline Iv IV CONT 80 mls/hr .[id number] JULIANO Administration Morphine Sulfate 30 mg in 30 mls @ 1 mls/hr 04/09/24 17:30 04/09/24 20:32 Morphine Sulfate Unemployment Insurance Hearing Officer IV CONT 1 mg/hr PRN PRN 1 mls/hr REIMBURSEMENT SPECIALIST Management Administration Protocol 1 MG/HR Ibuprofen 800 mg in 200 mls @ 400 mls/hr 04/09/24 18:00 04/10/24 05:26 Caldolor 800 Mg/200 Ml IVPB 400 mls/hr Q6H JULIANO Administration Dextrose 1,000 mls @ 100 mls/hr 04/09/24 18:37 Dextrose 5% 1,000 Ml IVPB PRN PRN Hypoglycemia Protocol Potassium Chloride 40 meq/ 520 mls @ 130 mls/hr 04/10/24 07:23 04/10/24 08:23 Sodium Chloride IVPB 04/10/24 11:22 130 mls/hr ONCE ONE Administration Magnesium Sulfate 2 gm in 50 mls @ 25 mls/hr 04/10/24 09:02 Magnesium Sulf 2 Gm/Water 50ml IVPB 04/10/24 11:01 ONCE ONE Insulin Aspart 2 - 5 units 04/10/24 00:00 04/10/24 05:46 Insulin Aspart (*Bkc) 100 Units/Ml SUB-Q Not Given Q6HR [facility] Protocol Lidocaine 1 patch 04/08/24 19:02 04/10/24 05:45 Lidocaine 5% Patch TRANSDERM 1 patch Q24H PRN Administration back pain Naloxone HCl 0.1 mg 04/09/24 21:04 Naloxone Hcl 0.4 Mg/Ml Vial IV PUSH Q5MIN PRN Opioid Reversal Ondansetron HCl 4 mg 04/08/24 13:45 04/09/24 15:29 Ondansetron Inj 4 Mg/2 Ml Vial IV PUSH 4 mg Q6H PRN Administration Nausea And Vomiting Pantoprazole Sodium 40 mg 04/10/24 09:00 04/10/24 08:19 Pantoprazole Sodium Iv 40 Mg Vial IV PUSH 40 mg QAM JULIANO Administration Sertraline HCl 50 mg 04/09/24 09:00 04/10/24 08:19 Sertraline Hcl 50 Mg Tablet PO Not Given DAILY [facility] Radiology Results: ITS Impressions Chest X-Ray 04/08/24 09:40 IMPRESSION: No focal infiltrate or effusion. Chest/Abdomen/Pelvis CTA 04/08/24 10:45 IMPRESSION: 1. Acute interstitial pancreatitis with prominent nonloculated acute peripancreatic fluid collections and stranding. 2. Tiny gallstones versus porcelain gallbladder with mural calcification along the dependent wall of the otherwise normal gallbladder. No evident choledocholithiasis or intra or extra hepatic biliary ductal dilation. 3. Mild dependent atelectasis in the lower lobes. No pulmonary embolism or other acute cardiopulmonary disease. MRCP 04/09/24 12:03 IMPRESSION: 1. Multiple tiny gallstones in the dependent aspect of the normal gallbladder. 2. Diffuse acute interstitial pancreatitis with prominent nonloculated peripancreatic fluid tracking into the intra and retroperitoneal soft tissue tissues. 3. No intra or extrahepatic biliary ductal dilation or evident choledocholithiasis. 4. Increased signal in the dependent lower lobes which could represent atelectasis or pneumonia. ADDENDUM: 04/09/24 1301 CORRECTION: Incorrect contrast agent is noted in the technique section. The study was performed without and with 16 mL ProHance intravenous contrast. Pelvis Ultrasound 04/09/24 13:37 IMPRESSION: 1. Unremarkable pelvic ultrasound. Labs Labs: Laboratory Results - last 24 hr 04/10/24 04/10/24 04/10/24 00:23 05:40 05:45 WBC RBC Hgb Hct MCV MCH MCHC RDW Plt Count MPV Immature Gran % (Auto) Neut % (Auto) Lymph % (Auto) [place] % (Auto) Eos % (Auto) Baso % (Auto) Lymph # (Auto) [place] # (Auto) Eos # (Auto) Baso # (Auto) Abs Immat Gran (auto) Absolute Neuts (auto) Absolute Nucleated RBC Band Neutrophils % Nucleated RBC % Platelet Estimate Anisocytosis Schistocytes Sodium Potassium Chloride Carbon Dioxide Anion Gap BUN Creatinine Estim Creat Clear Calc Estimated GFR Glucose POC Capillary Glucose 119 H 122 H Hemoglobin A1c Calcium Magnesium 1.8 Total Bilirubin AST ALT Alkaline Phosphatase Total Protein Albumin Lipase 04/10/24 06:17 WBC 12.9 H RBC 4.17 L Hgb 10.8 L Hct 34.0 L MCV 81.5 MCH 25.9 L MCHC 31.8 L RDW 18.0 H Plt Count 172 MPV 10.6 H Immature Gran % (Auto) 0.5 Neut % (Auto) 91.4 H Lymph % (Auto) 5.1 L [place] % (Auto) 2.6 Eos % (Auto) 0.2 Baso % (Auto) 0.2 Lymph # (Auto) 0.66 L [place] # (Auto) 0.3 Eos # (Auto) 0.0 Baso # (Auto) 0.0 Abs Immat Gran (auto) 0.06 H Absolute Neuts (auto) 11.8 H Absolute Nucleated RBC 0.000 Band Neutrophils % Not Reportable Nucleated RBC % 0.0 Platelet Estimate Adequate Anisocytosis 1+ Schistocytes None seen Sodium 139 Potassium 2.7 L* Chloride 105 Carbon Dioxide 22 Anion Gap 12 BUN 5 L Creatinine 0.47 L Estim Creat Clear Calc 145 Estimated GFR > 60 Glucose 125 H POC Capillary Glucose Hemoglobin A1c 4.8 Calcium 7.5 L Magnesium Total Bilirubin 2.1 H AST 29 ALT 150 H Alkaline Phosphatase 178 H Total Protein 6.0 L Albumin 3.1 L Lipase 2296 H
--- NOTE | 2024-04-10 11:57 | ECG_ITS ---
Test Date: 2024-04-10 12:47:01 Measurements Intervals [place] Rate: 119 P: 35 MA: 122 QRS: 19 QRSD: 84 T: 7 QT: 339 QTc: 477 Interpretive Statements SINUS TACHYCARDIA NONSPECIFIC ST & T-WAVE ABNORMALITY ABNORMAL ECG Electronically Signed On 04-10-2024 13:25:51 HAIR AND MAKEUP DESIGNER by Rufino Dean M.D.
[2024-04-10 12:52] LABS: Glucose Point of Care 115 mg/dl (65-105)
[2024-04-10] MEDS: MAGNESIUM SULF 2 GM/WATER 50ML 2 GM/50 ML BAG IVPB (13:40)
[2024-04-10 14:39] LABS: Potassium 2.9 mmol/L (3.4-5.0)
--- NOTE | 2024-04-10 14:40 | P.PNGS_ITS ---
Progress Note: A&P Assessment and Plan (1) Acute pancreatitis: Qualifiers: Acute pancreatitis complication: unspecified Pancreatitis type: unspecified pancreatitis type Qualified Code(s): K85.90 - Acute pancreatitis without necrosis or infection, unspecified Code(s): K85.90 - Acute pancreatitis without necrosis or infection, unspecified Status: Acute Assessment and Plan: Still having significant upper abdominal pain and tenderness. LFTs improving. White blood cell count however increased to 12,900. [employer] is making the pain much more manageable although I instructed the patient on how to use the [employer] better. She has not been administering the self dose nearly as much as she should be. If white blood cell count even higher tomorrow, will get repeat CT scan. (2) Cholelithiasis: Qualifiers: Biliary obstruction: with biliary obstruction Cholecystitis presence: without cholecystitis Cholelithiasis location: gallbladder Qualified Code(s): K80.21 - Calculus of gallbladder without cholecystitis with obstruction Code(s): K80.20 - Calculus of gallbladder without cholecystitis without obstruction Status: Chronic Assessment and Plan: Definitely does have gallstones and will need eventual cholecystectomy. Not sure bile duct stones are the cause of her main problem which is acute pancreatitis. (3) Transaminitis: Code(s): R74.01 - Elevation of levels of liver transaminase levels Status: Acute Assessment and Plan: Improving, bilirubin was rising but even this is coming down now. Subjective Subjective Date/Time Seen: 04/10/24 14:40 Patient reports: still having pain ([employer] providing much better pain control. Patient not using [employer] as often as she should.), voiding w/o difficulty and afebrile Review of Systems Review of Systems: All systems reviewed & are unremarkable except as noted in HPI and below (HPI) Exam Const: General: comfortable and no acute distress Orientation/ consciousness: patient oriented x3 GI: Inspection: normal to inspection, no abdominal wall ecchymosis and non- distended GI Palp: Yes Soft to palpation, Yes Tenderness to palpation present (GI) (Still diffusely tender, worse in the upper abdomen especially epigastric), No Guarding due to palpation present (GI), No Hepatosplenomegaly present, No Hernia present, No Palpable mass present and No Rebound tenderness present Auscultation: absent bowel sounds Neuro: General: patient oriented x3 and no focal motor deficits Extrem: General: no calf tenderness and no edema Psych: Affect: normal affect Insight: Good insight present (Psych) Judgement: Good judgement present (Psych) Objective Data Vital Signs Vital Signs: Vital Signs - 24 hr 04/09/24 16:00 04/09/24 18:15 04/09/24 20:32 Temperature 36.6 C 36.6 C Pulse Rate 73 98 Respiratory Rate 16 16 24 H Blood Pressure 132/78 139/79 Pulse Oximetry 100 99 98 Oxygen Delivery Fraction of Inspired Oxygen 04/09/24 21:00 04/09/24 21:56 04/09/24 22:06 Temperature 36.4 C Pulse Rate 100 Respiratory Rate 20 14 18 Blood Pressure 134/76 Pulse Oximetry 97 97 97 Oxygen Delivery Fraction of Inspired Oxygen 04/09/24 23:15 04/10/24 01:57 04/10/24 03:13 Temperature 36.5 C Pulse Rate 70 Respiratory Rate 18 14 18 Blood Pressure 135/68 Pulse Oximetry 98 95 97 Oxygen Delivery Fraction of Inspired Oxygen 04/10/24 05:48 04/10/24 06:33 04/10/24 08:00 Temperature 36.5 C 36.3 C L Pulse Rate 80 124 H Respiratory Rate 16 20 16 Blood Pressure 136/63 127/74 Pulse Oximetry 95 96 96 Oxygen Delivery Fraction of Inspired Oxygen 04/10/24 08:19 04/10/24 08:33 04/10/24 09:03 Temperature Pulse Rate 120 H Respiratory Rate 20 22 H Blood Pressure Pulse Oximetry 96 96 Oxygen Delivery Room Air Room Air Fraction of Inspired Oxygen 21 04/10/24 10:00 04/10/24 12:00 04/10/24 12:00 Temperature 36.3 C L Pulse Rate 122 H Respiratory Rate 20 16 20 Blood Pressure 128/78 Pulse Oximetry 97 95 96 Oxygen Delivery Fraction of Inspired Oxygen Intake/Output Intake/Output: Intake & Output 04/07/24 04/08/24 04/09/24 04/10/24 23:59 23:59 23:59 23:59 Intake Total 1000 2189.6 2038.7 Balance 1000 2189.6 2038.7 Meds/Results Medications: Active Medications Generic Name Dose Route Start Last Admin Trade Name Freq PRN Reason Stop Dose Admin Acetaminophen 650 mg 04/08/24 13:45 Acetaminophen 325 Mg Tablet PO Q4H PRN Mild Pain (1-3) or Fever Dextrose 12.5 gm 04/09/24 18:37 Dextrose 50% 25 Gm/50 Ml Syringe IV PUSH PRN PRN Hypoglycemia Protocol Glucagon 1 mg 04/09/24 18:37 Glucagon For Inj 1 Mg Vial IM PRN PRN Hypoglycemia Protocol Glucose 15 gm 04/09/24 18:37 Glucose Oral Gel 15 Gm Of Glucse In 37.5 Gm Tube PO PRN PRN Hypoglycemia Protocol Sodium Chloride 1,000 mls @ 80 mls/hr 04/08/24 11:40 04/10/24 05:47 Normal Saline Iv IV CONT 80 mls/hr .[id number] JULIANO Administration Morphine Sulfate 30 mg in 30 mls @ 1 mls/hr 04/09/24 17:30 04/09/24 20:32 Morphine Sulfate Children Counselor IV CONT 1 mg/hr PRN PRN 1 mls/hr [employer] Management Administration Protocol 1 MG/HR Ibuprofen 800 mg in 200 mls @ 400 mls/hr 04/09/24 18:00 04/10/24 13:27 Caldolor 800 Mg/200 Ml IVPB Infused Q6H JULIANO Infusion Dextrose 1,000 mls @ 100 mls/hr 04/09/24 18:37 Dextrose 5% 1,000 Ml IVPB PRN PRN Hypoglycemia Protocol Insulin Aspart 2 - 5 units 04/10/24 00:00 04/10/24 13:42 Insulin Aspart (*Bkc) 100 Units/Ml SUB-Q Not Given Q6HR [facility] Protocol Lidocaine 1 patch 04/08/24 19:02 04/10/24 05:45 Lidocaine 5% Patch TRANSDERM 1 patch Q24H PRN Administration back pain Naloxone HCl 0.1 mg 04/09/24 21:04 Naloxone Hcl 0.4 Mg/Ml Vial IV PUSH Q5MIN PRN Opioid Reversal Ondansetron HCl 4 mg 04/08/24 13:45 04/09/24 15:29 Ondansetron Inj 4 Mg/2 Ml Vial IV PUSH 4 mg Q6H PRN Administration Nausea And Vomiting Pantoprazole Sodium 40 mg 04/10/24 09:00 04/10/24 08:19 Pantoprazole Sodium Iv 40 Mg Vial IV PUSH 40 mg QAM JULIANO Administration Sertraline HCl 50 mg 04/09/24 09:00 04/10/24 08:19 Sertraline Hcl 50 Mg Tablet PO Not Given DAILY JULIANO Radiology Results: ITS Impressions Chest X-Ray 04/08/24 09:40 IMPRESSION: No focal infiltrate or effusion. Chest/Abdomen/Pelvis CTA 04/08/24 10:45 IMPRESSION: 1. Acute interstitial pancreatitis with prominent nonloculated acute peripancreatic fluid collections and stranding. 2. Tiny gallstones versus porcelain gallbladder with mural calcification along the dependent wall of the otherwise normal gallbladder. No evident choledocholithiasis or intra or extra hepatic biliary ductal dilation. 3. Mild dependent atelectasis in the lower lobes. No pulmonary embolism or other acute cardiopulmonary disease. MRCP 04/09/24 12:03 IMPRESSION: 1. Multiple tiny gallstones in the dependent aspect of the normal gallbladder. 2. Diffuse acute interstitial pancreatitis with prominent nonloculated peripancreatic fluid tracking into the intra and retroperitoneal soft tissue tissues. 3. No intra or extrahepatic biliary ductal dilation or evident choledocholithiasis. 4. Increased signal in the dependent lower lobes which could represent atelectas is or pneumonia. ADDENDUM: 04/09/24 1301 CORRECTION: Incorrect contrast agent is noted in the technique section. The study was performed without and with 16 mL ProHance intravenous contrast. Pelvis Ultrasound 04/09/24 13:37 IMPRESSION: 1. Unremarkable pelvic ultrasound. Labs Labs: Laboratory Results - last 24 hr 04/10/24 04/10/24 04/10/24 00:23 05:40 05:45 WBC RBC Hgb Hct MCV MCH MCHC RDW Plt Count MPV Immature Gran % (Auto) Neut % (Auto) Lymph % (Auto) [place] % (Auto) Eos % (Auto) Baso % (Auto) Lymph # (Auto) [place] # (Auto) Eos # (Auto) Baso # (Auto) Abs Immat Gran (auto) Absolute Neuts (auto) Absolute Nucleated RBC Band Neutrophils % Nucleated RBC % Platelet Estimate Anisocytosis Schistocytes Sodium Potassium Chloride Carbon Dioxide Anion Gap BUN Creatinine Estim Creat Clear Calc Estimated GFR Glucose POC Capillary Glucose 119 H 122 H Hemoglobin A1c Calcium Magnesium 1.8 Total Bilirubin AST ALT Alkaline Phosphatase Total Protein Albumin Lipase 04/10/24 04/10/24 04/10/24 06:17 12:05 14:00 WBC 12.9 H RBC 4.17 L Hgb 10.8 L Hct 34.0 L MCV 81.5 MCH 25.9 L MCHC 31.8 L RDW 18.0 H Plt Count 172 MPV 10.6 H Immature Gran % (Auto) 0.5 Neut % (Auto) 91.4 H Lymph % (Auto) 5.1 L [place] % (Auto) 2.6 Eos % (Auto) 0.2 Baso % (Auto) 0.2 Lymph # (Auto) 0.66 L [place] # (Auto) 0.3 Eos # (Auto) 0.0 Baso # (Auto) 0.0 Abs Immat Gran (auto) 0.06 H Absolute Neuts (auto) 11.8 H Absolute Nucleated RBC 0.000 Band Neutrophils % Not Reportable Nucleated RBC % 0.0 Platelet Estimate Adequate Anisocytosis 1+ Schistocytes None seen Sodium 139 Potassium 2.7 L* 2.9 L Chloride 105 Carbon Dioxide 22 Anion Gap 12 BUN 5 L Creatinine 0.47 L Estim Creat Clear Calc 145 Estimated GFR > 60 Glucose 125 H POC Capillary Glucose 115 H Hemoglobin A1c 4.8 Calcium 7.5 L Magnesium Total Bilirubin 2.1 H AST 29 ALT 150 H Alkaline Phosphatase 178 H Total Protein 6.0 L Albumin 3.1 L Lipase 2296 H White blood cell count up to nearly 13,000 today. Lipase continues to decrease. Total bilirubin dropped to 2.1 from 5.9. LFTs decreasing as well.
--- NOTE | 2024-04-10 14:48 | PM.PNGS ---
Subjective Subjective Date/Time Seen: 04/10/24 14:48 Patient reports: pain is less, tolerating liquids well, no bowel movement and afebrile Review of Systems Review of Systems: All systems reviewed & are unremarkable except as noted in HPI and below Constitutional: Constitutional: Denies headache(s) and Reports increased appetite ENT: Denies headache(s) Cardiovascular: Cardiovascular: Denies chest pain and Denies dyspnea Respiratory: Respiratory: Denies cough and Denies dyspnea Gastrointestinal: Gastrointestinal: Reports as per HPI Neurologic: Denies confusion and Denies headache(s) Psychiatric: Psychiatric: Denies confusion Objective Data Vital Signs Vital Signs: Vital Signs - 24 hr 04/09/24 16:00 04/09/24 18:15 04/09/24 20:32 Temperature 36.6 C 36.6 C Pulse Rate 73 98 Respiratory Rate 16 16 24 H Blood Pressure 132/78 139/79 Pulse Oximetry 100 99 98 Oxygen Delivery Fraction of Inspired Oxygen 04/09/24 21:00 04/09/24 21:56 04/09/24 22:06 Temperature 36.4 C Pulse Rate 100 Respiratory Rate 20 14 18 Blood Pressure 134/76 Pulse Oximetry 97 97 97 Oxygen Delivery Fraction of Inspired Oxygen 04/09/24 23:15 04/10/24 01:57 04/10/24 03:13 Temperature 36.5 C Pulse Rate 70 Respiratory Rate 18 14 18 Blood Pressure 135/68 Pulse Oximetry 98 95 97 Oxygen Delivery Fraction of Inspired Oxygen 04/10/24 05:48 04/10/24 06:33 04/10/24 08:00 Temperature 36.5 C 36.3 C L Pulse Rate 80 124 H Respiratory Rate 16 20 16 Blood Pressure 136/63 127/74 Pulse Oximetry 95 96 96 Oxygen Delivery Fraction of Inspired Oxygen 04/10/24 08:19 04/10/24 08:33 04/10/24 09:03 Temperature Pulse Rate 120 H Respiratory Rate 20 22 H Blood Pressure Pulse Oximetry 96 96 Oxygen Delivery Room Air Room Air Fraction of Inspired Oxygen 21 04/10/24 10:00 04/10/24 12:00 04/10/24 12:00 Temperature 36.3 C L Pulse Rate 122 H Respiratory Rate 20 16 20 Blood Pressure 128/78 Pulse Oximetry 97 95 96 Oxygen Delivery Fraction of Inspired Oxygen Intake/Output Intake/Output: Intake & Output 04/07/24 04/08/24 04/09/24/02/25 23:59 23:59 23:59 23:59 Intake Total 1000 2189.6 2038.7 Balance 1000 2189.6 2038.7 Meds/Results Medications: Active Medications Generic Name Dose Route Start Last Admin Trade Name Freq PRN Reason Stop Dose Admin Acetaminophen 650 mg 04/08/24 13:45 Acetaminophen 325 Mg Tablet PO Q4H PRN Mild Pain (1-3) or Fever Dextrose 12.5 gm 04/09/24 18:37 Dextrose 50% 25 Gm/50 Ml Syringe IV PUSH PRN PRN Hypoglycemia Protocol Glucagon 1 mg 04/09/24 18:37 Glucagon For Inj 1 Mg Vial IM PRN PRN Hypoglycemia Protocol Glucose 15 gm 04/09/24 18:37 Glucose Oral Gel 15 Gm Of Glucse In 37.5 Gm Tube PO PRN PRN Hypoglycemia Protocol Sodium Chloride 1,000 mls @ 80 mls/hr 04/08/24 11:40 04/10/24 05:47 Normal Saline Iv IV CONT 80 mls/hr .[id number] JULIANO Administration Morphine Sulfate 30 mg in 30 mls @ 1 mls/hr 04/09/24 17:30 04/09/24 20:32 Morphine Sulfate [id number] Application Developer IV CONT 1 mg/hr PRN PRN 1 mls/hr RN CLINICAL TRIALS Management Administration Protocol 1 MG/HR Ibuprofen 800 mg in 200 mls @ 400 mls/hr 04/09/24 18:00 04/10/24 13:27 Caldolor 800 Mg/200 Ml IVPB Infused Q6H JULIANO Infusion Dextrose 1,000 mls @ 100 mls/hr 04/09/24 18:37 Dextrose 5% 1,000 Ml IVPB PRN PRN Hypoglycemia Protocol Insulin Aspart 2 - 5 units 04/10/24 00:00 04/10/24 13:42 Insulin Aspart (*Bkc) 100 Units/Ml SUB-Q Not Given Q6HR JULIANO Protocol Lidocaine 1 patch 04/08/24 19:02 04/10/24 05:45 Lidocaine 5% Patch TRANSDERM 1 patch Q24H PRN Administration back pain Naloxone HCl 0.1 mg 04/09/24 21:04 Naloxone Hcl 0.4 Mg/Ml Vial IV PUSH Q5MIN PRN Opioid Reversal Ondansetron HCl 4 mg 04/08/24 13:45 03/01/25 15:29 Ondansetron Inj 4 Mg/2 Ml Vial IV PUSH 4 mg Q6H PRN Administration Nausea And Vomiting Pantoprazole Sodium 40 mg 04/10/24 09:00 04/10/24 08:19 Pantoprazole Sodium Iv 40 Mg Vial IV PUSH 40 mg QAM JULIANO Administration Sertraline HCl 50 mg 04/09/24 09:00 04/10/24 08:19 Sertraline Hcl 50 Mg Tablet PO Not Given DAILY [facility] Radiology Results: ITS Impressions Chest X-Ray 04/08/24 09:40 IMPRESSION: No focal infiltrate or effusion. Chest/Abdomen/Pelvis CTA 04/08/24 10:45 IMPRESSION: 1. Acute interstitial pancreatitis with prominent nonloculated acute peripancreatic fluid collections and stranding. 2. Tiny gallstones versus porcelain gallbladder with mural calcification along the dependent wall of the otherwise normal gallbladder. No evident choledocholithiasis or intra or extra hepatic biliary ductal dilation. 3. Mild dependent atelectasis in the lower lobes. No pulmonary embolism or other acute cardiopulmonary disease. MRCP 04/09/24 12:03 IMPRESSION: 1. Multiple tiny gallstones in the dependent aspect of the normal gallbladder. 2. Diffuse acute interstitial pancreatitis with prominent nonloculated peripancreatic fluid tracking into the intra and retroperitoneal soft tissue tissues. 3. No intra or extrahepatic biliary ductal dilation or evident choledocholithiasis. 4. Increased signal in the dependent lower lobes which could represent atelectasis or pneumonia. ADDENDUM: 04/09/24 1301 CORRECTION: Incorrect contrast agent is noted in the technique section. The study was performed without and with 16 mL ProHance intravenous contrast. Pelvis Ultrasound 04/09/24 13:37 IMPRESSION: 1. Unremarkable pelvic ultrasound. Labs Labs: Laboratory Results - last 24 hr 04/10/24 04/10/24 04/10/24 00:23 05:40 05:45 WBC RBC Hgb Hct MCV MCH MCHC RDW Plt Count MPV Immature Gran % (Auto) Neut % (Auto) Lymph % (Auto) [place] % (Auto) Eos % (Auto) Baso % (Auto) Lymph # (Auto) [place] # (Auto) Eos # (Auto) Baso # (Auto) Abs Immat Gran (auto) Absolute Neuts (auto) Absolute Nucleated RBC Band Neutrophils % Nucleated RBC % Platelet Estimate Anisocytosis Schistocytes Sodium Potassium Chloride Carbon Dioxide Anion Gap BUN Creatinine Estim Creat Clear Calc Estimated GFR Glucose POC Capillary Glucose 119 H 122 H Hemoglobin A1c Calcium Magnesium 1.8 Total Bilirubin AST ALT Alkaline Phosphatase Total Protein Albumin Lipase 04/10/24 04/10/24 04/10/24 06:17 12:05 14:00 WBC 12.9 H RBC 4.17 L Hgb 10.8 L Hct 34.0 L MCV 81.5 MCH 25.9 L MCHC 31.8 L RDW 18.0 H Plt Count 172 MPV 10.6 H Immature Gran % (Auto) 0.5 Neut % (Auto) 91.4 H Lymph % (Auto) 5.1 L [place] % (Auto) 2.6 Eos % (Auto) 0.2 Baso % (Auto) 0.2 Lymph # (Auto) 0.66 L [place] # (Auto) 0.3 Eos # (Auto) 0.0 Baso # (Auto) 0.0 Abs Immat Gran (auto) 0.06 H Absolute Neuts (auto) 11.8 H Absolute Nucleated RBC 0.000 Band Neutrophils % Not Reportable Nucleated RBC % 0.0 Platelet Estimate Adequate Anisocytosis 1+ Schistocytes None seen Sodium 139 Potassium 2.7 L* 2.9 L Chloride 105 Carbon Dioxide 22 Anion Gap 12 BUN 5 L Creatinine 0.47 L Estim Creat Clear Calc 145 Estimated GFR > 60 Glucose 125 H POC Capillary Glucose 115 H Hemoglobin A1c 4.8 Calcium 7.5 L Magnesium Total Bilirubin 2.1 H AST 29 ALT 150 H Alkaline Phosphatase 178 H Total Protein 6.0 L Albumin 3.1 L Lipase 2296 H
[2024-04-10] MEDS: POTASSIUM CHLORIDE 20 MEQ ER TABLET 40 MEQ PO (15:35)
[2024-04-10 17:19] LABS: Glucose Point of Care 92 mg/dl (65-105)
[2024-04-10] MEDS: SODIUM CHLORIDE 0.9% IV 500 ML 15 ML (18:04)
[2024-04-10] MEDS: MORPHINE SULFATE PCA (*CRX) 30 MG/30 ML SYR IV CONT (19:35)
[2024-04-10] MEDS: KCL 40 MEQ/D5/0.9% SOD CHL 1,000 ML 100 ML IV CONT (20:39)
[2024-04-11] VITALS (21 sets, daily range): BP systolic 121–152; BP diastolic 67–76; PULSE 100–138; RESP 16–26; TEMP 35.8–37; O2SAT 90–97
[2024-04-11] MEDS: IBUPROFEN IV 800 MG/200 ML 800 MG/200 ML BAG 400 MG IVPB ×5 (00:01→23:52)
[2024-04-11 00:03] LABS: Glucose Point of Care 122 mg/dl (65-105)
[2024-04-11 05:54] LABS: Basophils Percent Auto 0.3 % (0.2-1.2); Eosinophils Percent Auto 0.4 % (0-4.4); Hemoglobin 9.2 g/dL (12.0-15.0); Immature Granulocyte Absolute 0.03 K/mm3 (0.00-0.031); Immature Granulocyte Percent A 0.3 % (0-0.5); Lymphocytes Absolute Auto 0.86 K/mm3 (0.9-3.2); Lymphocytes Percent Auto 7.8 % (18.3-44.2); Mean Corpuscular HGB Conc 30.7 g/dl (32-36); Mean Corpuscular Hemoglobin 25.3 pg (26-34); Mean Corpuscular Volume 82.6 fl (80-100); Mean Platelet Volume 10.7 fl (7.4-10.4); Monocytes Absolute Auto 0.3 K/mm3 (0.1-0.6); Monocytes Percent Auto 2.7 % (2.6-8.5); Neutrophils Absolute Auto 9.8 K/mm3 (1.3-6.7); Neutrophils Percent Auto 88.5 % (45.5-73.1); Platelet Count Result 162 k/mm3 (150-375); Red Blood Count 3.63 M/mm3 (4.2-5.4); Red Cell Distribution Width 18.1 % (11.5-14.5); White Blood Count 11.1 K/mm3 (4.5-10.0)
[2024-04-11 06:05] LABS: Alanine Aminotransferase 90 U/L (6-35); Albumin Level 2.9 g/dL (3.5-5.1); Alkaline Phosphatase 146 U/L (38-126); Anion Gap 8 mmol/L (4-12); Aspartate Amino Transferase 18 U/L (14-36); Bilirubin,Total 1.8 mg/dL (0.2-1.3); Blood Urea Nitrogen 4 mg/dL (7-17); Calcium 7.6 mg/dL (8.4-10.2); Carbon Dioxide 23 mmol/L (22-30); Chloride 106 mmol/L (98-107); Estimated CRCL calculation 164 ml/min; Estimated Glomerular Filt Rate > 60; Glucose 114 mg/dL (65-110); Lipase 621 U/L (23-300); Magnesium 2.3 mg/dL (1.6-2.3); Potassium 3.7 mmol/L (3.4-5.0); Sodium 137 mmol/L (137-145)
[2024-04-11 06:07] LABS: Glucose Point of Care 122 mg/dl (65-105)
--- NOTE | 2024-04-11 07:09 | PM.IMPN ---
Progress Note: A&P Assessment and Plan (1) Gallstone pancreatitis: Code(s): K85.10 - Biliary acute pancreatitis without necrosis or infection Status: Acute Assessment and Plan: Patient presents with abdominal pain and found to have lipase >40K. CTA chest/abdomen/pelvis shows acute interstitial pancreatitis with prominent nonloculated acute peripancreatic fluid collections and stranding, tiny GS versus porcelain gallbladder with mural calcification along the dependent wall of the otherwise normal GB, no evident choledocholithiasis or intra or extra hepatic biliary ductal dilation and mild dependent atelectasis in the lower lobes. No pulmonary embolism or other acute cardiopulmonary disease. MRCP showing similar findings from the CT scan and no evidence of choledocholithiasis. Patient with GS Pancreatitis. General surgery and GI consulted and appreciate their input. TG 198. Lipase trending downward at 600. TB better at 1.8 and other liver tests continue to trend down. Repeat CT A/P (04/11) showing interval progression of non loculated peripancreatic fluid and extensive stranding consistent with acute interstitial pancreatitis Continue NPO status. Continue analgesics and antiemetics p.r.n. TPN ordered. Supportive care. Follow LFTs and lipase levels. (2) Cholelithiasis: Qualifiers: Biliary obstruction: with biliary obstruction Cholecystitis presence: without cholecystitis Cholelithiasis location: gallbladder Qualified Code(s): K80.21 - Calculus of gallbladder without cholecystitis with obstruction Code(s): K80.20 - Calculus of gallbladder without cholecystitis without obstruction Status: Chronic Assessment and Plan: As above (3) Transaminitis: Code(s): R74.01 - Elevation of levels of liver transaminase levels Status: Acute Assessment and Plan: As above. (4) Elevated partial thromboplastin time (PTT): Code(s): R79.1 - Abnormal coagulation profile Status: Chronic Assessment and Plan: PTT 197, previously 159 on 06/27/2023. Patient has previously been referred to Hematology but has not follow-up with this. Her mother and maternal grandmother have some form of clotting disorder and are both She has bleeding gums but no miscarriages or early bruising. 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 Check for antiphospholipid antibody syndrome and von Willebrand's deficiency Oncology/hematology consulted (5) Abnormal uterine bleeding: Code(s): N93.9 - Abnormal uterine and vaginal bleeding, unspecified Status: Acute Assessment and Plan: Patient reports vaginal bleeding since delivery in February. Hgb 13.2 on admisison. Pelvic ultrasound was unremarkable. Could be related to her elevated PTT. HH has trended down to 9.2 today bookmaker's clerk consulted and appreciate their input (6) Hypokalemia: Code(s): E87.6 - Hypokalemia Status: Acute Assessment and Plan: Potassium was 2.7 yesterday morning and was replaced. Potassium better Plan Hyperglycemia -probably stress response. A1c 4.8. Continue sliding scale protocol. Sinus Tachycardia - HR more elevated recently despite starting a MEDIA RELATIONS SPECIALIST for pain. CTA chest added to exclude PE. CTA chest showing no PE (although limited) but small left pleural effusion with partial collapse of the LLL; atelectasis RLL. Encourage incentive spirometry use. Diet: NPO DVT Prophylaxis: SCDs Code Status: Full code Subjective Date/time seen: 04/11/24 07:09 Interval history: 29yo female with recent IUP, anxiety and with recently noted elevated PTT here for chest, back and abdominal pain. Slept off and on. Still with abd pain 4/10 but worse with standing. No pleuritic chest pain. +SOB. Exam Narrative: AF 98.6 122/69 129 22 91% ra Gen - NARD Chest - decreased BS in the left base CV - tachycardic, regular Abd - Soft, diffusely tender but worse in the upper abd, quiet Ext - No pedal edema. Negative Homans; no cords Psych - Nml mood and affect Skin - Warm and dry. Objective Data Vital Signs Vital Signs: Vital Signs - 24 hr 04/10/24 08:00 04/10/24 08:19 04/10/24 08:33 Temperature 97.4 F L Pulse Rate 124 H Respiratory Rate 16 20 Blood Pressure 127/74 Pulse Oximetry 96 96 Oxygen Delivery Room Air Fraction of Inspired Oxygen 04/10/24 09:03 04/10/24 10:00 04/10/24 12:00 Temperature 97.4 F L Pulse Rate 120 H 122 H Respiratory Rate 22 H 20 16 Blood Pressure 128/78 Pulse Oximetry 96 97 95 Oxygen Delivery Room Air Fraction of Inspired Oxygen 21 04/10/24 12:00 04/10/24 14:00 04/10/24 16:00 Temperature Pulse Rate 110 H Respiratory Rate 20 18 Blood Pressure Pulse Oximetry 96 93 Oxygen Delivery Fraction of Inspired Oxygen 04/10/24 16:00 04/10/24 16:00 04/10/24 18:00 Temperature 97.7 F Pulse Rate 134 H Respiratory Rate 20 16 24 H Blood Pressure 120/69 Pulse Oximetry 94 97 98 Oxygen Delivery Fraction of Inspired Oxygen 04/10/24 19:35 04/10/24 19:35 04/10/24 20:00 Temperature 97.5 F L Pulse Rate 115 H Respiratory Rate 23 H 22 H 18 Blood Pressure 110/50 L Pulse Oximetry 96 94 98 Oxygen Delivery Fraction of Inspired Oxygen 04/10/24 20:00 04/10/24 20:00 04/10/24 20:00 Temperature Pulse Rate 116 H 142 H Respiratory Rate 23 H 24 H Blood Pressure Pulse Oximetry 95 94 Oxygen Delivery Room Air Fraction of Inspired Oxygen 21 04/10/24 20:55 04/10/24 21:57 04/10/24 23:58 Temperature Pulse Rate 116 H Respiratory Rate 24 H 24 H 24 H Blood Pressure Pulse Oximetry 94 96 94 Oxygen Delivery Room Air Fraction of Inspired Oxygen 21 04/11/24 00:00 04/11/24 00:00 04/11/24 01:50 Temperature 97.7 F Pulse Rate 134 H 138 H Respiratory Rate 18 22 H Blood Pressure 132/72 Pulse Oximetry 95 92 Oxygen Delivery Fraction of Inspired Oxygen 04/11/24 03:42 04/11/24 03:50 04/11/24 04:00 Temperature 98.6 F Pulse Rate 123 H 129 H Respiratory Rate 18 22 H Blood Pressure 122/69 Pulse Oximetry 91 93 Oxygen Delivery Fraction of Inspired Oxygen 04/11/24 05:58 Temperature Pulse Rate Respiratory Rate 22 H Blood Pressure Pulse Oximetry 91 Oxygen Delivery Fraction of Inspired Oxygen Intake/Output Intake/Output: Intake & Output 04/08/24 04/09/24 04/10/24 04/11/24 23:59 23:59 23:59 23:59 Intake Total 1000 2189.6 2758.7 450 Balance 1000 2189.6 2758.7 450 Meds/Results Medications: Active Medications Generic Name Dose Route Start Last Admin Trade Name Freq PRN Reason Stop Dose Admin Acetaminophen 650 mg 04/08/24 13:45 Acetaminophen 325 Mg Tablet PO Q4H PRN Mild Pain (1-3) or Fever Dextrose 12.5 gm 04/09/24 18:37 Dextrose 50% 25 Gm/50 Ml Syringe IV PUSH PRN PRN Hypoglycemia Protocol Glucagon 1 mg 04/09/24 18:37 Glucagon For Inj 1 Mg Vial IM PRN PRN Hypoglycemia Protocol Glucose 15 gm 04/09/24 18:37 Glucose Oral Gel 15 Gm Of Glucse In 37.5 Gm Tube PO PRN PRN Hypoglycemia Protocol Morphine Sulfate 30 mg in 30 mls @ 1 mls/hr 04/09/24 17:30 04/10/24 19:35 Morphine Sulfate [employer] Operator IV CONT 1 mg/hr PRN PRN 1 mls/hr MED[employer] RELATIONS SPECIALIST Management Administration Protocol 1 MG/HR Ibuprofen 800 mg in 200 mls @ 400 mls/hr 04/09/24 18:00 04/11/24 05:54 Caldolor 800 Mg/200 Ml IVPB Infused Q6H JULIANO Infusion Dextrose 1,000 mls @ 100 mls/hr 04/09/24 18:37 Dextrose 5% 1,000 Ml IVPB PRN PRN Hypoglycemia Protocol Potassium Chloride/Dextrose/Sod Cl 1,000 mls @ 100 mls/hr 04/10/24 14:50 04/10/24 20:39 Kcl 40 Meq/D5ns IV CONT 100 mls/hr .Q10H JULIANO Administration Insulin Aspart 2 - 5 units 04/10/24 00:00 04/11/24 06:06 Insulin Aspart (*Bkc) 100 Units/Ml SUB-Q Not Given Q6HR [facility] Protocol Lidocaine 1 patch 04/08/24 19:02 04/10/24 05:45 Lidocaine 5% Patch TRANSDERM 1 patch Q24H PRN Administration back pain Naloxone HCl 0.1 mg 04/09/24 21:04 Naloxone Hcl 0.4 Mg/Ml Vial IV PUSH Q5MIN PRN Opioid Reversal Ondansetron HCl 4 mg 04/08/24 13:45 04/09/24 15:29 Ondansetron Inj 4 Mg/2 Ml Vial IV PUSH 4 mg Q6H PRN Administration Nausea And Vomiting Pantoprazole Sodium 40 mg 04/10/24 09:00 04/10/24 08:19 Pantoprazole Sodium Iv 40 Mg Vial IV PUSH 40 mg QAM JULIANO Administration Sertraline HCl 50 mg 04/09/24 09:00 04/10/24 08:19 Sertraline Hcl 50 Mg Tablet PO Not Given DAILY [facility] Radiology Results: ITS Impressions Chest X-Ray 04/08/24 09:40 IMPRESSION: No focal infiltrate or effusion. Chest/Abdomen/Pelvis CTA 04/08/24 10:45 IMPRESSION: 1. Acute interstitial pancreatitis with prominent nonloculated acute peripancreatic fluid collections and stranding. 2. Tiny gallstones versus porcelain gallbladder with mural calcification along the dependent wall of the otherwise normal gallbladder. No evident choledocholithiasis or intra or extra hepatic biliary ductal dilation. 3. Mild dependent atelectasis in the lower lobes. No pulmonary embolism or other acute cardiopulmonary disease. MRCP 04/09/24 12:03 IMPRESSION: 1. Multiple tiny gallstones in the dependent aspect of the normal gallbladder. 2. Diffuse acute interstitial pancreatitis with prominent nonloculated peripancreatic fluid tracking into the intra and retroperitoneal soft tissue tissues. 3. No intra or extrahepatic biliary ductal dilation or evident choledocholithiasis. 4. Increased signal in the dependent lower lobes which could represent atelectasis or pneumonia. ADDENDUM: 04/09/24 1301 CORRECTION: Incorrect contrast agent is noted in the technique section. The study was performed without and with 16 mL ProHance intravenous contrast. Pelvis Ultrasound 04/09/24 13:37 IMPRESSION: 1. Unremarkable pelvic ultrasound. Labs Labs: Laboratory Results - last 24 hr 04/10/24 04/10/24 04/10/24 05:45 06:17 12:05 WBC 12.9 H RBC 4.17 L Hgb 10.8 L Hct 34.0 L MCV 81.5 MCH 25.9 L MCHC 31.8 L RDW 18.0 H Plt Count 172 MPV 10.6 H Immature Gran % (Auto) 0.5 Neut % (Auto) 91.4 H Lymph % (Auto) 5.1 L [place] % (Auto) 2.6 Eos % (Auto) 0.2 Baso % (Auto) 0.2 Lymph # (Auto) 0.66 L [place] # (Auto) 0.3 Eos # (Auto) 0.0 Baso # (Auto) 0.0 Abs Immat Gran (auto) 0.06 H Absolute Neuts (auto) 11.8 H Absolute Nucleated RBC 0.000 Band Neutrophils % Not Reportable Nucleated RBC % 0.0 Platelet Estimate Adequate Anisocytosis 1+ Schistocytes None seen Sodium Potassium Chloride Carbon Dioxide Anion Gap BUN Creatinine Estim Creat Clear Calc Estimated GFR Glucose POC Capillary Glucose 115 H Hemoglobin A1c 4.8 Calcium Magnesium 1.8 Total Bilirubin AST ALT Alkaline Phosphatase Total Protein Albumin Lipase 04/10/24 04/10/24 04/10/24 14:00 17:12 23:59 WBC RBC Hgb Hct MCV MCH MCHC RDW Plt Count MPV Immature Gran % (Auto) Neut % (Auto) Lymph % (Auto) [place] % (Auto) Eos % (Auto) Baso % (Auto) Lymph # (Auto) [place] # (Auto) Eos # (Auto) Baso # (Auto) Abs Immat Gran (auto) Absolute Neuts (auto) Absolute Nucleated RBC Band Neutrophils % Nucleated RBC % Platelet Estimate Anisocytosis Schistocytes Sodium Potassium 2.9 L Chloride Carbon Dioxide Anion Gap BUN Creatinine Estim Creat Clear Calc Estimated GFR Glucose POC Capillary Glucose 92 122 H Hemoglobin A1c Calcium Magnesium Total Bilirubin AST ALT Alkaline Phosphatase Total Protein Albumin Lipase 04/11/24 04/11/24 04:36 06:04 WBC 11.1 H RBC 3.63 L Hgb 9.2 L Hct 30.0 L MCV 82.6 MCH 25.3 L MCHC 30.7 L RDW 18.1 H Plt Count 162 MPV 10.7 H Immature Gran % (Auto) 0.3 Neut % (Auto) 88.5 H Lymph % (Auto) 7.8 L [place] % (Auto) 2.7 Eos % (Auto) 0.4 Baso % (Auto) 0.3 Lymph # (Auto) 0.86 L [place] # (Auto) 0.3 Eos # (Auto) 0.0 Baso # (Auto) 0.0 Abs Immat Gran (auto) 0.03 Absolute Neuts (auto) 9.8 H Absolute Nucleated RBC 0.000 Band Neutrophils % Nucleated RBC % 0.0 Platelet Estimate Anisocytosis Schistocytes Sodium 137 Potassium 3.7 Chloride 106 Carbon Dioxide 23 Anion Gap 8 BUN 4 L Creatinine 0.41 L Estim Creat Clear Calc 164 Estimated GFR > 60 Glucose 114 H POC Capillary Glucose 122 H Hemoglobin A1c Calcium 7.6 L Magnesium 2.3 Total Bilirubin 1.8 H AST 18 ALT 90 H Alkaline Phosphatase 146 H Total Protein 6.0 L Albumin 2.9 L Lipase 621 H
[2024-04-11] MEDS: KCL 40 MEQ/D5/0.9% SOD CHL 1,000 ML 100 ML IV CONT (08:43)
[2024-04-11] MEDS: PANTOPRAZOLE SODIUM IV 40 MG VIAL IV PUSH (08:43)
[2024-04-11] MEDS: LIDOCAINE 5% PATCH 1 PATCH TRANSDERM (08:47)
--- NOTE | 2024-04-11 11:17 | P.PNGS_ITS ---
Progress Note: A&P Assessment and Plan (1) Acute pancreatitis: Qualifiers: Acute pancreatitis complication: unspecified Pancreatitis type: unspecified pancreatitis type Qualified Code(s): K85.90 - Acute pancreatitis without necrosis or infection, unspecified Code(s): K85.90 - Acute pancreatitis without necrosis or infection, unspecified Status: Acute Assessment and Plan: WBC count down to 11,000 today and LFTs continue to improve. Lipase trending down. Still having significant upper abdominal pain and tenderness without much improvement. She has also become tachycardic over the past [address] scan of the chest, abdomen, and pelvis ordered today to further evaluate. Will await these results. Continue IV fluids and bowel rest given her persistent abdominal pain. Will order PICC line and TPN. (2) Cholelithiasis: Qualifiers: Biliary obstruction: with biliary obstruction Cholecystitis presence: without cholecystitis Cholelithiasis location: gallbladder Qualified Code(s): K80.21 - Calculus of gallbladder without cholecystitis with obstruction Code(s): K80.20 - Calculus of gallbladder without cholecystitis without obstruction Status: Chronic Assessment and Plan: Definitely does have gallstones and will need eventual cholecystectomy. (3) Transaminitis: Code(s): R74.01 - Elevation of levels of liver transaminase levels Status: Acute Assessment and Plan: Improving, bilirubin continues to come down. MRCP showed no common bile duct stones. Plan I have discussed the patient's case and plan of care with Dr. Warner. Subjective Subjective Date/Time Seen: 04/11/24 11:17 Patient reports: still having pain, no flatus, no bowel movement (since 04/08) and afebrile Interval history: Patient was put on a FUR REPAIRER for pain control over the weekend. She reports her abdominal pain is the same as yesterday. Her pain is diffuse across her entire abdomen. She denies any nausea or vomiting. No flatus and her last BM was last Thursday morning. Review of Systems Review of Systems: All systems reviewed & are unremarkable except as noted in HPI and below Exam Const: General: no acute distress Orientation/consciousness: patient oriented x3 GI: Inspection: non-distended GI Palp: Yes Soft to palpation, Yes Tenderness to palpation present (GI) (diffusely tender, worse in the upper abdomen), No Guarding due to palpation present (GI) and No Rebound tenderness present Auscultation: absent bowel sounds Neuro: General: moves all extremities Extrem: General: no pedal edema and no calf tenderness Objective Data Vital Signs Vital Signs: Vital Signs - 24 hr 04/10/24 12:00 04/10/24 12:00 04/10/24 14:00 Temperature 97.4 F L Pulse Rate 122 H Respiratory Rate 16 20 18 Blood Pressure 128/78 Pulse Oximetry 95 96 93 Oxygen Delivery Fraction of Inspired Oxygen 04/10/24 16:00 04/10/24 16:00 04/10/24 16:00 Temperature 97.7 F Pulse Rate 110 H 134 H Respiratory Rate 20 16 Blood Pressure 120/69 Pulse Oximetry 94 97 Oxygen Delivery Fraction of Inspired Oxygen 04/10/24 18:00 04/10/24 19:35 04/10/24 19:35 Temperature Pulse Rate Respiratory Rate 24 H 23 H 22 H Blood Pressure Pulse Oximetry 98 96 94 Oxygen Delivery Fraction of Inspired Oxygen 04/10/24 20:00 04/10/24 20:00 04/10/24 20:00 Temperature 97.5 F L Pulse Rate 115 H 116 H Respiratory Rate 18 23 H 24 H Blood Pressure 110/50 L Pulse Oximetry 98 95 94 Oxygen Delivery Room Air Fraction of Inspired Oxygen 21 04/10/24 20:00 04/10/24 20:55 04/10/24 21:57 Temperature Pulse Rate 142 H 116 H Respiratory Rate 24 H 24 H Blood Pressure Pulse Oximetry 94 96 Oxygen Delivery Room Air Fraction of Inspired Oxygen 21 04/10/24 23:58 04/11/24 00:00 04/11/24 00:00 Temperature 97.7 F Pulse Rate 134 H 138 H Respiratory Rate 24 H 18 Blood Pressure 132/72 Pulse Oximetry 94 95 Oxygen Delivery Fraction of Inspired Oxygen 04/11/24 01:50 04/11/24 03:42 04/11/24 03:50 Temperature 98.6 F Pulse Rate 123 H Respiratory Rate 22 H 18 22 H Blood Pressure 122/69 Pulse Oximetry 92 91 93 Oxygen Delivery Fraction of Inspired Oxygen 04/11/24 04:00 04/11/24 05:58 04/11/24 07:52 Temperature Pulse Rate 129 H 112 H Respiratory Rate 22 H 24 H Blood Pressure Pulse Oximetry 91 92 Oxygen Delivery Room Air Fraction of Inspired Oxygen 21 04/11/24 08:16 04/11/24 08:43 04/11/24 08:43 Temperature 96.5 F L Pulse Rate 127 H 127 H Respiratory Rate 16 24 H 16 Blood Pressure 125/67 Pulse Oximetry 95 94 95 Oxygen Delivery Room Air Fraction of Inspired Oxygen 21 04/11/24 08:43 04/11/24 10:00 Temperature Pulse Rate 118 H Respiratory Rate 22 H Blood Pressure Pulse Oximetry 96 Oxygen Delivery Fraction of Inspired Oxygen Intake/Output Intake/Output: Intake & Output 04/08/24 04/09/24 04/10/24 04/11/24 23:59 23:59 23:59 23:59 Intake Total 1000 2189.6 2758.7 1450 Balance 1000 2189.6 2758.7 1450 Meds/Results Medications: Active Medications Generic Name Dose Route Start Last Admin Trade Name Freq PRN Reason Stop Dose Admin Acetaminophen 650 mg 04/08/24 13:45 Acetaminophen 325 Mg Tablet PO Q4H PRN Mild Pain (1-3) or Fever Dextrose 12.5 gm 04/09/24 18:37 Dextrose 50% 25 Gm/50 Ml Syringe IV PUSH PRN PRN Hypoglycemia Protocol Glucagon 1 mg 04/09/24 18:37 Glucagon For Inj 1 Mg Vial IM PRN PRN Hypoglycemia Protocol Glucose 15 gm 04/09/24 18:37 Glucose Oral Gel 15 Gm Of Glucse In 37.5 Gm Tube PO PRN PRN Hypoglycemia Protocol Morphine Sulfate 30 mg in 30 mls @ 1 mls/hr 04/09/24 17:30 04/10/24 19:35 Morphine Sulfate Preparation Supervisor Freezing IV CONT 1 mg/hr PRN PRN 1 mls/hr [employer] Management Administration Protocol 1 MG/HR Ibuprofen 800 mg in 200 mls @ 400 mls/hr 04/09/24 18:00 04/11/24 05:54 Caldolor 800 Mg/200 Ml IVPB Infused Q6H JULIANO Infusion Dextrose 1,000 mls @ 100 mls/hr 04/09/24 18:37 Dextrose 5% 1,000 Ml IVPB PRN PRN Hypoglycemia Protocol Potassium Chloride/Dextrose/Sod Cl 1,000 mls @ 100 mls/hr 04/10/24 14:50 04/11/24 08:43 Kcl 40 Meq/D5ns IV CONT 100 mls/hr .Q10H JULIANO Administration Insulin Aspart 2 - 5 units 04/10/24 00:00 04/11/24 06:06 Insulin Aspart (*Bkc) 100 Units/Ml SUB-Q Not Given Q6HR [facility] Protocol Lidocaine 1 patch 04/08/24 19:02 04/11/24 08:47 Lidocaine 5% Patch TRANSDERM 1 patch Q24H PRN Administration back pain Naloxone HCl 0.1 mg 04/09/24 21:04 Naloxone Hcl 0.4 Mg/Ml Vial IV PUSH Q5MIN PRN Opioid Reversal Ondansetron HCl 4 mg 04/08/24 13:45 04/09/24 15:29 Ondansetron Inj 4 Mg/2 Ml Vial IV PUSH 4 mg Q6H PRN Administration Nausea And Vomiting Pantoprazole Sodium 40 mg 04/10/24 09:00 04/11/24 08:43 Pantoprazole Sodium Iv 40 Mg Vial IV PUSH 40 mg QAM JULIANO Administration Sertraline HCl 50 mg 04/09/24 09:00 04/11/24 08:13 Sertraline Hcl 50 Mg Tablet PO Not Given DAILY [facility] Radiology Results: ITS Impressions Chest X-Ray 04/08/24 09:40 IMPRESSION: No focal infiltrate or effusion. Chest/Abdomen/Pelvis CTA 04/08/24 10:45 IMPRESSION: 1. Acute interstitial pancreatitis with prominent nonloculated acute peripancreatic fluid collections and stranding. 2. Tiny gallstones versus porcelain gallbladder with mural calcification along the dependent wall of the otherwise normal gallbladder. No evident choledocholithiasis or intra or extra hepatic biliary ductal dilation. 3. Mild dependent atelectasis in the lower lobes. No pulmonary embolism or other acute cardiopulmonary disease. MRCP 04/09/24 12:03 IMPRESSION: 1. Multiple tiny gallstones in the dependent aspect of the normal gallbladder. 2. Diffuse acute interstitial pancreatitis with prominent nonloculated peripancreatic fluid tracking into the intra and retroperitoneal soft tissue tissues. 3. No intra or extrahepatic biliary ductal dilation or evident choledocholithiasis. 4. Increased signal in the dependent lower lobes which could represent atelectasis or pneumonia. ADDENDUM: 04/09/24 1301 CORRECTION: Incorrect contrast agent is noted in the technique section. The study was performed without and with 16 mL ProHance intravenous contrast. Pelvis Ultrasound 04/09/24 13:37 IMPRESSION: 1. Unremarkable pelvic ultrasound. Labs Labs: Laboratory Results - last 24 hr 04/10/24 04/10/24 04/10/24 12:05 14:00 17:12 WBC RBC Hgb Hct MCV MCH MCHC RDW Plt Count MPV Immature Gran % (Auto) Neut % (Auto) Lymph % (Auto) [place] % (Auto) Eos % (Auto) Baso % (Auto) Lymph # (Auto) [place] # (Auto) Eos # (Auto) Baso # (Auto) Abs Immat Gran (auto) Absolute Neuts (auto) Absolute Nucleated RBC Nucleated RBC % Sodium Potassium 2.9 L Chloride Carbon Dioxide Anion Gap BUN Creatinine Estim Creat Clear Calc Estimated GFR Glucose POC Capillary Glucose 115 H 92 Calcium Magnesium Total Bilirubin AST ALT Alkaline Phosphatase Total Protein Albumin Lipase TSH (Reflex) 04/10/24 04/11/24 04/11/24 23:59 04:36 06:04 WBC 11.1 H RBC 3.63 L Hgb 9.2 L Hct 30.0 L MCV 82.6 MCH 25.3 L MCHC 30.7 L RDW 18.1 H Plt Count 162 MPV 10.7 H Immature Gran % (Auto) 0.3 Neut % (Auto) 88.5 H Lymph % (Auto) 7.8 L [place] % (Auto) 2.7 Eos % (Auto) 0.4 Baso % (Auto) 0.3 Lymph # (Auto) 0.86 L [place] # (Auto) 0.3 Eos # (Auto) 0.0 Baso # (Auto) 0.0 Abs Immat Gran (auto) 0.03 Absolute Neuts (auto) 9.8 H Absolute Nucleated RBC 0.000 Nucleated RBC % 0.0 Sodium 137 Potassium 3.7 Chloride 106 Carbon Dioxide 23 Anion Gap 8 BUN 4 L Creatinine 0.41 L Estim Creat Clear Calc 164 Estimated GFR > 60 Glucose 114 H POC Capillary Glucose 122 H 122 H Calcium 7.6 L Magnesium 2.3 Total Bilirubin 1.8 H AST 18 ALT 90 H Alkaline Phosphatase 146 H Total Protein 6.0 L Albumin 2.9 L Lipase 621 H TSH (Reflex) 2.500
[2024-04-11 12:38] LABS: Glucose Point of Care 123 mg/dl (65-105)
[2024-04-11 13:00] LABS: Partial Thromboplastin Time 187.2 Seconds (22.3-36.8)
[2024-04-11] MEDS: LIDOCAINE 1% PF INJ 5 ML VIAL INFILTRATE (13:45)
[2024-04-11] MEDS: AMINO ACIDS 5%/D15W/E-LYTES/CA 1,000 ML with MULTIVITAMINS-12 INJ VIAL 1 1.25 ML, MULTI... 40 ML IV CONT (14:26)
[2024-04-11] MEDS: FAT EMULSIONS IV 20% 250 ML 20.83 ML IVPB (14:27)
[2024-04-11] MEDS: SODIUM CHLORIDE 0.9% IV 500 ML 15 ML (14:30)
[2024-04-11] MEDS: MORPHINE SULFATE PCA (*CRX) 30 MG/30 ML SYR IV CONT (14:31)
--- NOTE | 2024-04-11 16:00 | P.PNGI_ITS ---
Progress Note: A&P Assessment and Plan (1) Gallstone pancreatitis: Code(s): K85.10 - Biliary acute pancreatitis without necrosis or infection Status: Acute Assessment and Plan: no choledocholithiasis, no need of ercp, noted GS and interstitial pancreatitis- repeat CT scan worsening nonloculated peripancreatic fluid and extensive stranding consistent with acute interstitial pancreatitis. started on TPN, will monitor- ideally prefer enteral feeding if still unable to eat as TPN can cause more adverse effect (2) Upper abdominal pain: Code(s): R10.10 - Upper abdominal pain, unspecified Status: Acute Assessment and Plan: still with pain (3) Transaminitis: Code(s): R74.01 - Elevation of levels of liver transaminase levels Status: Acute Assessment and Plan: from pancreatitis bili is down no need of ercp (4) Elevated partial thromboplastin time (PTT): Code(s): R79.1 - Abnormal coagulation profile Status: Chronic (5) Nausea: Code(s): R11.0 - Nausea Status: Acute Subjective Date/time seen: 04/11/24 16:00 Interval history: similar pain, no major changes surgery started patient on TPN Review of Systems Review of Systems: All systems reviewed & are unremarkable except as noted in HPI and below Exam Const: General: no acute distress Orientation/consciousness: patient oriented x3 HENMT: Face/Nose/Sinus: Normal nares present Eyes: Sclera: sclerae normal Neck: Neck: supple Resp: Effort & Inspection: normal respiratory effort Cardio: Rate: regular rate GI: Inspection: non-distended GI Palp: Yes Soft to palpation, Yes Tenderness to palpation present (GI) (diffusely tender, worse in the upper abdomen), No Guarding due to palpation present (GI) and No Rebound tenderness present Auscultation: absent bowel sounds Skin: General skin exam: no rashes or lesions noted Neuro: General: moves all extremities Extrem: General: no pedal edema and no calf tenderness Psych: Mental Status: mental status grossly normal Objective Data Vital Signs Vital Signs: Vital Signs - 24 hr 04/10/24 18:00 04/10/24 19:35 04/10/24 19:35 Temperature Pulse Rate Respiratory Rate 24 H 23 H 22 H Blood Pressure Pulse Oximetry 98 96 94 Oxygen Delivery Fraction of Inspired Oxygen 04/10/24 20:00 04/10/24 20:00 04/10/24 20:00 Temperature 97.5 F L Pulse Rate 115 H 116 H Respiratory Rate 18 23 H 24 H Blood Pressure 110/50 L Pulse Oximetry 98 95 94 Oxygen Delivery Room Air Fraction of Inspired Oxygen 21 04/10/24 20:00 04/10/24 20:55 04/10/24 21:57 Temperature Pulse Rate 142 H 116 H Respiratory Rate 24 H 24 H Blood Pressure Pulse Oximetry 94 96 Oxygen Delivery Room Air Fraction of Inspired Oxygen 21 04/10/24 23:58 04/11/24 00:00 04/11/24 00:00 Temperature 97.7 F Pulse Rate 134 H 138 H Respiratory Rate 24 H 18 Blood Pressure 132/72 Pulse Oximetry 94 95 Oxygen Delivery Fraction of Inspired Oxygen 04/11/24 01:50 04/11/24 03:42 04/11/24 03:50 Temperature 98.6 F Pulse Rate 123 H Respiratory Rate 22 H 18 22 H Blood Pressure 122/69 Pulse Oximetry 92 91 93 Oxygen Delivery Fraction of Inspired Oxygen 04/11/24 04:00 04/11/24 05:58 04/11/24 07:52 Temperature Pulse Rate 129 H 112 H Respiratory Rate 22 H 24 H Blood Pressure Pulse Oximetry 91 92 Oxygen Delivery Room Air Fraction of Inspired Oxygen 21 04/11/24 08:16 04/11/24 08:43 04/11/24 08:43 Temperature 96.5 F L Pulse Rate 127 H 127 H Respiratory Rate 16 24 H 16 Blood Pressure 125/67 Pulse Oximetry 95 94 95 Oxygen Delivery Room Air Fraction of Inspired Oxygen 21 04/11/24 08:43 04/11/24 10:00 04/11/24 12:00 Temperature Pulse Rate 118 H 127 H Respiratory Rate 22 H Blood Pressure Pulse Oximetry 96 Oxygen Delivery Fraction of Inspired Oxygen 04/11/24 12:00 04/11/24 13:10 04/11/24 14:31 Temperature 98.6 F Pulse Rate 127 H Respiratory Rate 20 17 22 H Blood Pressure 121/70 Pulse Oximetry 97 95 95 Oxygen Delivery Fraction of Inspired Oxygen 04/11/24 14:31 Temperature Pulse Rate Respiratory Rate 22 H Blood Pressure Pulse Oximetry 95 Oxygen Delivery Fraction of Inspired Oxygen Intake/Output Intake/Output: Intake & Output 04/08/24 04/09/24 04/10/24 04/11/24 23:59 23:59 23:59 23:59 Intake Total 1000 2189.6 2758.7 1679.8 Balance 1000 2189.6 2758.7 1679.8 Meds/Results Medications: Active Medications Generic Name Dose Route Start Last Admin Trade Name Freq PRN Reason Stop Dose Admin Acetaminophen 650 mg 04/08/24 13:45 Acetaminophen 325 Mg Tablet PO Q4H PRN Mild Pain (1-3) or Fever Dextrose 12.5 gm 04/09/24 18:37 Dextrose 50% 25 Gm/50 Ml Syringe IV PUSH PRN PRN Hypoglycemia Protocol Glucagon 1 mg 04/09/24 18:37 Glucagon For Inj 1 Mg Vial IM PRN PRN Hypoglycemia Protocol Glucose 15 gm 04/09/24 18:37 Glucose Oral Gel 15 Gm Of Glucse In 37.5 Gm Tube PO PRN PRN Hypoglycemia Protocol Morphine Sulfate 30 mg in 30 mls @ 1 mls/hr 04/09/24 17:30 04/11/24 14:31 Morphine Sulfate [employer] IV CONT 1 mg/hr PRN PRN 1 mls/hr [employer] Management Administration Protocol 1 MG/HR Ibuprofen 800 mg in 200 mls @ 400 mls/hr 04/09/24 18:00 04/11/24 12:22 Caldolor 800 Mg/200 Ml IVPB Infused Q6H JULIANO Infusion Dextrose 1,000 mls @ 100 mls/hr 04/09/24 18:37 Dextrose 5% 1,000 Ml IVPB PRN PRN Hypoglycemia Protocol Potassium Chloride/Dextrose/Sod Cl 1,000 mls @ 60 mls/hr 04/10/24 14:50 04/11/24 08:43 Kcl 40 Meq/D5ns IV CONT 100 mls/hr .[id number] JULIANO Administration Dextrose 1,000 mls @ 50 mls/hr 04/11/24 11:47 Dextrose 10% IV CONT .Q20H PRN if PN is interrupted Multivitamins 1.25 ml/ 1,002.5 mls @ 40 mls/hr 04/11/24 14:00 04/11/24 14:26 Multivitamins 1.25 ml/ Amino IV CONT 40 mls/hr Acids/Electrolytes/Dextrose .Q24H JULIANO Administration Protocol Fat Emulsion Intravenous 250 mls @ 20.833 mls/hr 04/11/24 14:00 04/11/24 14:27 Lipids 20% IVPB 20.83 mls/hr Q24H JULIANO Administration Insulin Aspart 2 - 5 units 04/10/24 00:00 04/11/24 13:25 Insulin Aspart (*Bkc) 100 Units/Ml SUB-Q Not Given Q6HR [facility] Protocol Insulin Human Regular 0 units 04/11/24 12:00 Insulin Human Regular (*Bkc) 100 Units/Ml SUB-Q Q6HR [facility] Protocol Lidocaine 1 patch 04/08/24 19:02 04/11/24 08:47 Lidocaine 5% Patch TRANSDERM 1 patch Q24H PRN Administration back pain Miscellaneous Information 1 each 04/11/24 00:01 Regular Insulin Sliding Scale Is Blank For Dosing Directions XX 05/11/24 00:00 CLARIFY JULIANO Naloxone HCl 0.1 mg 04/09/24 21:04 Naloxone Hcl 0.4 Mg/Ml Vial IV PUSH Q5MIN PRN Opioid Reversal Ondansetron HCl 4 mg 04/08/24 13:45 04/09/24 15:29 Ondansetron Inj 4 Mg/2 Ml Vial IV PUSH 4 mg Q6H PRN Administration Nausea And Vomiting Pantoprazole Sodium 40 mg 04/10/24 09:00 04/11/24 08:43 Pantoprazole Sodium Iv 40 Mg Vial IV PUSH 40 mg QAM JULIANO Administration Sertraline HCl 50 mg 04/09/24 09:00 04/11/24 08:13 Sertraline Hcl 50 Mg Tablet PO Not Given DAILY [facility] Sodium Chloride 20 ml 04/11/24 14:26 Central Line Flush IV PUSH PRN PRN after blood draws Sodium Chloride 10 ml 04/11/24 14:26 Central Line Flush IV PUSH PRN PRN with TPN bag changes Sodium Chloride 10 ml 04/11/24 22:00 Central Line Flush IV PUSH Q8HR [facility] Radiology Results: ITS Impressions Chest X-Ray 04/08/24 09:40 IMPRESSION: No focal infiltrate or effusion. MRCP 04/09/24 12:03 IMPRESSION: 1. Multiple tiny gallstones in the dependent aspect of the normal gallbladder. 2. Diffuse acute interstitial pancreatitis with prominent nonloculated peripancreatic fluid tracking into the intra and retroperitoneal soft tissue tissues. 3. No intra or extrahepatic biliary ductal dilation or evident choledocholi thiasis. 4. Increased signal in the dependent lower lobes which could represent atelectasis or pneumonia. ADDENDUM: 04/09/24 1301 CORRECTION: Incorrect contrast agent is noted in the technique section. The study was performed without and with 16 mL ProHance intravenous contrast. Pelvis Ultrasound 04/09/24 13:37 IMPRESSION: 1. Unremarkable pelvic ultrasound. Chest/Abdomen/Pelvis CTA 04/11/24 12:59 IMPRESSION: 1. No evident pulmonary embolism. Sensitivity mildly decreased in the segmental and more prominently in the subsegmental pulmonary arteries due to is suboptimal opacification of the pulmonary arteries as well as small amount of respiratory and streak artifact. 2. Small left pleural effusion with partial collapse of the left lower lobe and additional atelectasis in the right lower lobe. 3. Interval progression of nonloculated peripancreatic fluid and extensive stranding consistent with acute interstitial pancreatitis. 4. Small amount of ascites in the abdomen and pelvis with increased density of the fluid in the dependent cul-de-sac suggesting complex/exudative ascites which could be seen with small amount of hemoperitoneum or peritonitis. Labs Labs: Laboratory Results - last 24 hr 04/10/24 04/10/24 04/11/24 17:12 23:59 04:36 WBC 11.1 H RBC 3.63 L Hgb 9.2 L Hct 30.0 L MCV 82.6 MCH 25.3 L MCHC 30.7 L RDW 18.1 H Plt Count 162 MPV 10.7 H Immature Gran % (Auto) 0.3 Neut % (Auto) 88.5 H Lymph % (Auto) 7.8 L [place] % (Auto) 2.7 Eos % (Auto) 0.4 Baso % (Auto) 0.3 Lymph # (Auto) 0.86 L [place] # (Auto) 0.3 Eos # (Auto) 0.0 Baso # (Auto) 0.0 Abs Immat Gran (auto) 0.03 Absolute Neuts (auto) 9.8 H Absolute Nucleated RBC 0.000 Nucleated RBC % 0.0 APTT Sodium 137 Potassium 3.7 Chloride 106 Carbon Dioxide 23 Anion Gap 8 BUN 4 L Creatinine 0.41 L Estim Creat Clear Calc 164 Estimated GFR > 60 Glucose 114 H POC Capillary Glucose 92 122 H Calcium 7.6 L Magnesium 2.3 Total Bilirubin 1.8 H AST 18 ALT 90 H Alkaline Phosphatase 146 H Total Protein 6.0 L Albumin 2.9 L Lipase 621 H TSH (Reflex) 2.500 04/11/24 04/11/24 04/11/24 06:04 12:07 12:24 WBC RBC Hgb Hct MCV MCH MCHC RDW Plt Count MPV Immature Gran % (Auto) Neut % (Auto) Lymph % (Auto) [place] % (Auto) Eos % (Auto) Baso % (Auto) Lymph # (Auto) [place] # (Auto) Eos # (Auto) Baso # (Auto) Abs Immat Gran (auto) Absolute Neuts (auto) Absolute Nucleated RBC Nucleated RBC % APTT 187.2 H* Sodium Potassium Chloride Carbon Dioxide Anion Gap BUN Creatinine Estim Creat Clear Calc Estimated GFR Glucose POC Capillary Glucose 122 H 123 H Calcium Magnesium Total Bilirubin AST ALT Alkaline Phosphatase Total Protein Albumin Lipase TSH (Reflex)
[2024-04-11] MEDS: KCL 40 MEQ/D5/0.9% SOD CHL 1,000 ML 60 ML IV CONT (17:15)
--- NOTE | 2024-04-11 17:15 | P.CONONC_ITS ---
Assessment and Plan Assessment and plan (1) Elevated partial thromboplastin time (PTT): Code(s): R79.1 - Abnormal coagulation profile Status: Chronic Assessment and Plan: This is the 29-year-old female with history of easy bruising delivered hurt her chart on March 08 and has been having abnormal uterine bleeding since then. She had previous 2 childbirths without any bleeding complications. There is a family history of easy bleeding and bruising in sister in the father. Mother had blood clots. Labs showed elevated PTT. D-dimer was slightly elevated and PT INR was normal. I have called the lab at [facility] to run the one-to-one mixing studies on PTT but this test is not available. Factor 8 level has been ordered and pending. Lupus anticoagulant is pending as well as von Willebrand's testing. Patient could be a carrier of hemophilia. I would start her on Amicar due to ongoing bleeding while waiting for the factor 8 level. I will also check iron studies and will start her on iron infusion as patient is quite symptomatic with tiredness and fatigue. I will order the workup. I have provided her my office information for follow-up. HPI Data of Consult Date/Time: 04/11/24 17:15 Requesting Physician: Jarvis Juarez MD Primary Care Provider: UNKNOWN,DOCTOR Consult Narrative Narrative: Janene Joshua is a 29 year old female who delivered her 3rd baby on March 08 2024 came into the hospital with chest pain, back pain and epigastric pain going on for last 7-8 days duration. According the patient she has been having constant vaginal bleeding since the child . Labs showed PTT of 196. There is a family history of easy bruising and bleeding in the father and the sister and mother had blood clots. She has personal history of easy bruising but did not have any problem with excessive bleeding with the delivery of the 2 previous deliveries. Patient was also diagnosed with acute pancreatitis with elevated serum lipase level. There was also biliary obstruction and cholecystitis. Other labs showed hemoglobin of 9.2 with WBC of 11.1. Total bilirubin was 1.8 and alkaline phosphatase 146 with ALT of 90. Lipase was 621. PTT was 187 with D-dimer of 1.63. INR 1.0. She seems to be quite tired and fatigued. Denies any melena hematochezia. She has a history of occasional hemorrhoid bleeding. Review of Systems 2 Review of Systems: Review of system as per HPI otherwise negative [facility] Past Medical History Medical History Nausea Upper abdominal pain Gallstone pancreatitis Overweight (BMI 25.0-29.9) Anxiety and depression Suppression of menses Encounter for removal of intrauterine contraceptive device Anxiety Surgical History Surgical History H/O gynecological procedure mirena iud insertion - 09/19/2020 Mirena IUD removal 04/07/23 Family History Family History Mother History of blood clots Other Acute myocardial infarction Hypertension Renal failure Social History Social History Smoking status: Never smoker Second hand tobacco smoke exposure: No Alcohol intake: never Substance use: current Substance use type: marijuana Other substance usage details: daily Do You Feel Safe in your Home?: Yes Lack of Transportation: No Lack of Food: Never True Current Housing: I Have Housing Concerned About Future Housing: No Difficulty Paying Gas/Electric Bills: No Difficulty Paying for Meds: No Currently Unemployed: No Education: High School Diploma/GED Difficulty w/ Childcare or Family Care: No Living arrangements: with family Occupation/Education: occupation Additional occupation/education comments: [employer] Gender identity (if verbalized by the patient): Female Sexual Orientation (if Verbalized by the Patient): Straight or Heterosexual Spiritual care concerns: No Meds Home Medications and Allergies Home Medications ?Medication ?Instructions ?Recorded ?Confirmed ?Type medroxyprogesterone 150 mg/mL 150 mg IM [id number] #1 mL 03/21/24 04/08/24 Rx intramuscular syringe (Depo-Provera) sertraline 50 mg tablet 50 mg PO DAILY #30 tabs 03/21/24 04/08/24 Rx lidocaine 5 % topical patch 1 patch transdermal Q24H PRN back 04/08/24 04/08/24 History pain naproxen 500 mg tablet 500 mg PO BID PRN pain 04/08/24 04/08/24 History Allergies Allergy/AdvReac Type Severity Reaction Status Date / Time alprazolam (From Xanax) Allergy Hives Verified 04/08/24 09:07 Vital Signs Vital Signs - 24 hr 04/10/24 18:00 04/10/24 19:35 04/10/24 19:35 Temperature Pulse Rate Respiratory Rate 24 H 23 H 22 H Blood Pressure Pulse Oximetry 98 96 94 Oxygen Delivery Fraction of Inspired Oxygen 04/10/24 20:00 04/10/24 20:00 04/10/24 20:00 Temperature 36.4 C L Pulse Rate 115 H 116 H Respiratory Rate 18 23 H 24 H Blood Pressure 110/50 L Pulse Oximetry 98 95 94 Oxygen Delivery Room Air Fraction of Inspired Oxygen 21 04/10/24 20:00 04/10/24 20:55 04/10/24 21:57 Temperature Pulse Rate 142 H 116 H Respiratory Rate 24 H 24 H Blood Pressure Pulse Oximetry 94 96 Oxygen Delivery Room Air Fraction of Inspired Oxygen 21 04/10/24 23:58 04/11/24 00:00 04/11/24 00:00 Temperature 36.5 C Pulse Rate 134 H 138 H Respiratory Rate 24 H 18 Blood Pressure 132/72 Pulse Oximetry 94 95 Oxygen Delivery Fraction of Inspired Oxygen 04/11/24 01:50 04/11/24 03:42 04/11/24 03:50 Temperature 37.0 C Pulse Rate 123 H Respiratory Rate 22 H 18 22 H Blood Pressure 122/69 Pulse Oximetry 92 91 93 Oxygen Delivery Fraction of Inspired Oxygen 04/11/24 04:00 04/11/24 05:58 04/11/24 07:52 Temperature Pulse Rate 129 H 112 H Respiratory Rate 22 H 24 H Blood Pressure Pulse Oximetry 91 92 Oxygen Delivery Room Air Fraction of Inspired Oxygen 21 04/11/24 08:16 04/11/24 08:43 04/11/24 08:43 Temperature 35.8 C L Pulse Rate 127 H 127 H Respiratory Rate 16 24 H 16 Blood Pressure 125/67 Pulse Oximetry 95 94 95 Oxygen Delivery Room Air Fraction of Inspired Oxygen 21 04/11/24 08:43 04/11/24 10:00 04/11/24 12:00 Temperature Pulse Rate 118 H 127 H Respiratory Rate 22 H Blood Pressure Pulse Oximetry 96 Oxygen Delivery Fraction of Inspired Oxygen 04/11/24 12:00 04/11/24 13:10 04/11/24 14:31 Temperature 37.0 C Pulse Rate 127 H Respiratory Rate 20 17 22 H Blood Pressure 121/70 Pulse Oximetry 97 95 95 Oxygen Delivery Fraction of Inspired Oxygen 04/11/24 14:31 Temperature Pulse Rate Respiratory Rate 22 H Blood Pressure Pulse Oximetry 95 Oxygen Delivery Fraction of Inspired Oxygen Exam 2 Narrative: Lungs are clear to auscultation bilaterally Cardiovascular regular rate rhythm no murmur Abdomen slightly distended and diffuse tender Extremities no edema Results Labs 04/11/24 04:36 04/11/24 04:36 Labs: Short CBC 04/11/24 Range/Units 04:36 WBC 11.1 H (4.5-10.0) K/mm3 Hgb 9.2 L (12.0-15.0) g/dL Hct 30.0 L (37.0-47.0) % Plt Count 162 (150-375) k/mm3 BMP 04/11/24 04:36 Sodium 137 Potassium 3.7 Chloride 106 Carbon Dioxide 23 BUN 4 L Creatinine 0.41 L Glucose 114 H Calcium 7.6 L Liver Function 04/11/24 Range/Units 04:36 Total Bilirubin 1.8 H (0.2-1.3) mg/dL AST 18 (14-36) U/L ALT 90 H (6-35) U/L Alkaline Phosphatase 146 H (38-126) U/L Albumin 2.9 L (3.5-5.1) g/dL
[2024-04-11] MEDS: AMINOCAPROIC ACID INJ 5,000 MG in DEXTROSE 5% IN WATER 250 ML 270 MG IVPB (18:26)
[2024-04-11 18:46] LABS: Glucose Point of Care 155 mg/dl (65-105)
[2024-04-11] MEDS: IRON SUCROSE COMPLEX 400 MG, IRON SUCROSE COMPLEX 100 MG in SODIUM CHLORIDE 0.9% IV 250 ML 78.57 MG IVPB (18:58)
[2024-04-11 18:59] LABS: Iron 20 ug/dL (37-170); Percent Iron Saturation 8 % (20-50)
[2024-04-11 19:41] LABS: Folic Acid 6.6 ng/mL (2.76->20)
[2024-04-11] MEDS: AMINOCAPROIC ACID INJ 5,000 MG in DEXTROSE 5% IN WATER 250 ML 50 MG IVPB (20:26)
[2024-04-11 22:03] LABS: Transferrin 167 mg/dL (206-381)
[2024-04-12] VITALS (20 sets, daily range): BP systolic 111–124; BP diastolic 60–69; PULSE 93–115; RESP 16–22; TEMP 36.8–37; O2SAT 90–98; BMI 31.3
[2024-04-12 00:18] LABS: Glucose Point of Care 141 mg/dl (65-105)
[2024-04-12] MEDS: AMINOCAPROIC ACID INJ 5,000 MG in DEXTROSE 5% IN WATER 250 ML 50 MG IVPB ×3 (01:59→12:22)
[2024-04-12 06:06] LABS: Glucose Point of Care 145 mg/dl (65-105)
--- NOTE | 2024-04-12 06:16 | P.PNIM_ITS ---
Progress Note: A&P Assessment and Plan (1) Gallstone pancreatitis: Code(s): K85.10 - Biliary acute pancreatitis without necrosis or infection Status: Acute Assessment and Plan: Patient presents with abdominal pain and found to have lipase >40K. CTA chest/abdomen/pelvis shows acute interstitial pancreatitis with prominent nonloculated acute peripancreatic fluid collections and stranding, tiny GS versus porcelain gallbladder with mural calcification along the dependent wall of the otherwise normal GB, no evident choledocholithiasis or intra or extra hepatic biliary ductal dilation and mild dependent atelectasis in the lower lobes. No pulmonary embolism or other acute cardiopulmonary disease. MRCP showing similar findings from the CT scan and no evidence of choledocholithiasis. Patient with GS Pancreatitis. General surgery and GI consulted and appreciate their input. TG 198. Lipase trending downward at 300. TB better at 1.1 and other liver tests normalize Repeat CT A/P (04/11) showing interval progression of non loculated peripancreatic fluid and extensive stranding consistent with acute interstitial pancreatitis Diet started. Continue TPN. Supportive care. Follow LFTs and lipase levels. (2) Cholelithiasis: Qualifiers: Biliary obstruction: with biliary obstruction Cholecystitis presence: without cholecystitis Cholelithiasis location: gallbladder Qualified Code(s): K80.21 - Calculus of gallbladder without cholecystitis with obstruction Code(s): K80.20 - Calculus of gallbladder without cholecystitis without obstruction Status: Chronic Assessment and Plan: As above (3) Transaminitis: Code(s): R74.01 - Elevation of levels of liver transaminase levels Status: Acute Assessment and Plan: As above. (4) Elevated partial thromboplastin time (PTT): Code(s): R79.1 - Abnormal coagulation profile Status: Chronic Assessment and Plan: PTT 197, previously 159 on 06/27/2023. Patient has previously been referred to Hematology but has not follow-up with this. Her mother and maternal grandmother have some form of clotting disorder and are both She has bleeding gums but no miscarriages or early bruising. 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 Oncology/hematology consulted and appreciate their input (5) Abnormal uterine bleeding: Code(s): N93.9 - Abnormal uterine and vaginal bleeding, unspecified Status: Acute Assessment and Plan: Patient reports vaginal bleeding since delivery in February. Hgb 13.2 on admisison. Pelvic ultrasound was unremarkable. Could be related to her elevated PTT. HH has trended down to 8.4 today but could be related to fluids. core manager consulted and appreciate their input (6) Hypokalemia: Code(s): E87.6 - Hypokalemia Status: Acute Assessment and Plan: Potassium was 2.7 and was replaced. Potassium better but now low again. Mag 2.2 Replace potassium Replace Phos as well. Plan Hyperglycemia -probably stress response. A1c 4.8. Continue sliding scale protocol. Sinus Tachycardia - HR more elevated recently despite starting a BOXER OPERATOR for pain. TSH okay. CTA chest showing no PE (although limited) but small left pleural effusion with partial collapse of the LLL; atelectasis RLL. Encourage incentive spirometry use. Diet: clear liquid DVT Prophylaxis: SCDs Code Status: Full code Subjective Date/time seen: 04/12/24 06:16 Interval history: 29yo female with recent IUP, anxiety and with recently noted elevated PTT here for chest, back and abdominal pain. Abd pain better today. No n/v. +Flatus. Feels hungry. Using incentive spirometry. Walking in room. Exam Narrative: AF 98.4 124/68 111 19 91% ra Gen - NARD Chest - improved Left base BS but decreased in the right base CV - tachycardic, regular Abd - Soft, +BS, no rebound but referred pain Ext - No pedal edema Psych - Nml mood and affect Skin - Warm and dry. Objective Data Vital Signs Vital Signs: Vital Signs - 24 hr 04/11/24 07:52 04/11/24 08:16 04/11/24 08:43 Temperature 96.5 F L Pulse Rate 112 H 127 H Respiratory Rate 24 H 16 24 H Blood Pressure 125/67 Pulse Oximetry 92 95 94 Oxygen Delivery Room Air Fraction of Inspired Oxygen 04/11/24 08:43 04/11/24 08:43 04/11/24 10:00 Temperature Pulse Rate 127 H 118 H Respiratory Rate 16 22 H Blood Pressure Pulse Oximetry 95 96 Oxygen Delivery Room Air Fraction of Inspired Oxygen 04/11/24 12:00 04/11/24 12:00 04/11/24 13:10 Temperature 98.6 F Pulse Rate 127 H 127 H Respiratory Rate 20 17 Blood Pressure 121/70 Pulse Oximetry 97 95 Oxygen Delivery Fraction of Inspired Oxygen 04/11/24 14:00 04/11/24 14:31 04/11/24 14:31 Temperature Pulse Rate Respiratory Rate 20 22 H 22 H Blood Pressure Pulse Oximetry 95 95 95 Oxygen Delivery Fraction of Inspired Oxygen 04/11/24 16:00 04/11/24 17:38 04/11/24 18:25 Temperature 96.9 F L Pulse Rate 131 H 120 H Respiratory Rate 16 26 H Blood Pressure 129/72 Pulse Oximetry 95 93 Oxygen Delivery Fraction of Inspired Oxygen 04/11/24 18:59 04/11/24 19:43 04/11/24 20:00 Temperature 97.2 F L Pulse Rate 110 H 115 H Respiratory Rate 20 22 H 18 Blood Pressure 152/76 H Pulse Oximetry 94 92 94 Oxygen Delivery Room Air Fraction of Inspired Oxygen 04/11/24 20:00 04/11/24 21:55 04/12/24 00:00 Temperature Pulse Rate 100 Respiratory Rate 20 21 H Blood Pressure Pulse Oximetry 90 93 Oxygen Delivery Fraction of Inspired Oxygen 04/12/24 00:00 04/12/24 00:40 04/12/24 02:00 Temperature 98.4 F Pulse Rate 115 H 115 H Respiratory Rate 18 16 Blood Pressure 114/60 Pulse Oximetry 92 91 Oxygen Delivery Fraction of Inspired Oxygen 04/12/24 04:00 04/12/24 04:00 04/12/24 04:00 Temperature 98.4 F Pulse Rate 98 111 H Respiratory Rate 18 18 Blood Pressure 124/68 Pulse Oximetry 91 90 Oxygen Delivery Fraction of Inspired Oxygen 04/12/24 06:00 Temperature Pulse Rate Respiratory Rate 19 Blood Pressure Pulse Oximetry 91 Oxygen Delivery Fraction of Inspired Oxygen Intake/Output Intake/Output: Intake & Output 04/09/24 04/10/24 04/11/24 04/12/24 23:59 23:59 23:59 23:59 Intake Total 2189.6 2808.7 2739.2 720 Balance 2189.6 2808.7 2739.2 720 Meds/Results Medications: Active Medications Generic Name Dose Route Start Last Admin Trade Name Freq PRN Reason Stop Dose Admin Acetaminophen 650 mg 04/08/24 13:45 Acetaminophen 325 Mg Tablet PO Q4H PRN Mild Pain (1-3) or Fever Dextrose 12.5 gm 04/09/24 18:37 Dextrose 50% 25 Gm/50 Ml Syringe IV PUSH PRN PRN Hypoglycemia Protocol Glucagon 1 mg 04/09/24 18:37 Glucagon For Inj 1 Mg Vial IM PRN PRN Hypoglycemia Protocol Glucose 15 gm 04/09/24 18:37 Glucose Oral Gel 15 Gm Of Glucse In 37.5 Gm Tube PO PRN PRN Hypoglycemia Protocol Morphine Sulfate 30 mg in 30 mls @ 1 mls/hr 04/09/24 17:30 04/11/24 18:59 Morphine Sulfate Hub Bander IV CONT 1 mg/hr PRN PRN 1 mls/hr BOXER OPERATOR Management Titration Protocol 1 MG/HR Ibuprofen 800 mg in 200 mls @ 400 mls/hr 04/09/24 18:00 04/12/24 00:22 Caldolor 800 Mg/200 Ml IVPB Infused Q6H JULIANO Infusion Dextrose 1,000 mls @ 100 mls/hr 04/09/24 18:37 Dextrose 5% 1,000 Ml IVPB PRN PRN Hypoglycemia Protocol Potassium Chloride/Dextrose/Sod Cl 1,000 mls @ 60 mls/hr 04/10/24 14:50 04/11/24 17:15 Kcl 40 Meq/D5ns IV CONT 60 mls/hr .[id number] JULIANO Administration Dextrose 1,000 mls @ 50 mls/hr 04/11/24 11:47 Dextrose 10% IV CONT .Q20H PRN if PN is interrupted Multivitamins 1.25 ml/ 1,002.5 mls @ 40 mls/hr 04/11/24 14:00 04/11/24 14:26 Multivitamins 1.25 ml/ Amino IV CONT 40 mls/hr Acids/Electrolytes/Dextrose .Q24H JULIANO Administration Protocol Fat Emulsion Intravenous 250 mls @ 20.833 mls/hr 04/11/24 14:00 04/12/24 0 2:28 Lipids 20% IVPB Infused Q24H JULIANO Infusion Aminocaproic Acid 5,000 mg/ 270 mls @ 50 mls/hr 04/11/24 20:00 04/12/24 01:59 Dextrose IVPB 04/12/24 15:59 50 mls/hr Q5H JULIANO Administration Insulin Aspart 2 - 5 units 04/10/24 00:00 04/12/24 00:54 Insulin Aspart (*Bkc) 100 Units/Ml SUB-Q Not Given Q6HR COUNTS INCLUDE 234 BEDS AT THE [facility] Protocol Insulin Human Regular 0 units 04/11/24 12:00 Insulin Human Regular (*Bkc) 100 Units/Ml SUB-Q Q6HR COUNTS INCLUDE 234 BEDS AT THE [facility] Protocol Lidocaine 1 patch 04/08/24 19:02 04/11/24 08:47 Lidocaine 5% Patch TRANSDERM 1 patch Q24H PRN Administration back pain Miscellaneous Information 1 each 04/11/24 00:01 04/11/24 22:30 Regular Insulin Sliding Scale Is Blank For Dosing Directions XX 05/11/24 00:00 Not Given CLARIFY JULIANO Naloxone HCl 0.1 mg 04/09/24 21:04 Naloxone Hcl 0.4 Mg/Ml Vial IV PUSH Q5MIN PRN Opioid Reversal Ondansetron HCl 4 mg 04/08/24 13:45 04/09/24 15:29 Ondansetron Inj 4 Mg/2 Ml Vial IV PUSH 4 mg Q6H PRN Administration Nausea And Vomiting Pantoprazole Sodium 40 mg 04/10/24 09:00 04/11/24 08:43 Pantoprazole Sodium Iv 40 Mg Vial IV PUSH 40 mg QAM JULIANO Administration Sertraline HCl 50 mg 04/09/24 09:00 04/11/24 08:13 Sertraline Hcl 50 Mg Tablet PO Not Given DAILY COUNTS INCLUDE 234 BEDS AT THE [facility] Sodium Chloride 20 ml 04/11/24 14:26 Central Line Flush IV PUSH PRN PRN after blood draws Sodium Chloride 10 ml 04/11/24 14:26 Central Line Flush IV PUSH PRN PRN with TPN bag changes Sodium Chloride 10 ml 04/11/24 22:00 04/11/24 21:44 Central Line Flush IV PUSH Not Given Q8HR COUNTS INCLUDE 234 BEDS AT THE [facility] Radiology Results: ITS Impressions Chest X-Ray 04/08/24 09:40 IMPRESSION: No focal infiltrate or effusion. MRCP 04/09/24 12:03 IMPRESSION: 1. Multiple tiny gallstones in the dependent aspect of the normal gallbladder. 2. Diffuse acute interstitial pancreatitis with prominent nonloculated peripancreatic fluid tracking into the intra and retroperitoneal soft tissue tissues. 3. No intra or extrahepatic biliary ductal dilation or evident choledocholithiasis. 4. Increased signal in the dependent lower lobes which could represent atelectasis or pneumonia. ADDENDUM: 04/09/24 1301 CORRECTION: Incorrect contrast agent is noted in the technique section. The study was performed without and with 16 mL ProHance intravenous contrast. Pelvis Ultrasound 04/09/24 13:37 IMPRESSION: 1. Unremarkable pelvic ultrasound. Chest/Abdomen/Pelvis CTA 04/11/24 12:59 IMPRESSION: 1. No evident pulmonary embolism. Sensitivity mildly decreased in the segmental and more prominently in the subsegmental pulmonary arteries due to is suboptimal opacification of the pulmonary arteries as well as small amount of respiratory and streak artifact. 2. Small left pleural effusion with partial collapse of the left lower lobe and additional atelectasis in the right lower lobe. 3. Interval progression of nonloculated peripancreatic fluid and extensive stranding consistent with acute interstitial pancreatitis. 4. Small amount of ascites in the abdomen and pelvis with increased density of the fluid in the dependent cul-de-sac suggesting complex/exudative ascites which could be seen with small amount of hemoperitoneum or peritonitis. Labs Labs: Laboratory Results - last 24 hr 04/11/24 04/11/24 04/11/24 04:36 12:07 12:24 WBC 11.1 H RBC 3.63 L Hgb 9.2 L Hct 30.0 L MCV 82.6 MCH 25.3 L MCHC 30.7 L RDW 18.1 H Plt Count 162 MPV 10.7 H Immature Gran % (Auto) 0.3 Neut % (Auto) 88.5 H Lymph % (Auto) 7.8 L [place] % (Auto) 2.7 Eos % (Auto) 0.4 Baso % (Auto) 0.3 Lymph # (Auto) 0.86 L [place] # (Auto) 0.3 Eos # (Auto) 0.0 Baso # (Auto) 0.0 Abs Immat Gran (auto) 0.03 Absolute Neuts (auto) 9.8 H Absolute Nucleated RBC 0.000 Nucleated RBC % 0.0 APTT 187.2 H* POC Capillary Glucose 123 H Iron 20 L TIBC 243 L % Saturation 8 L Transferrin 167 L Ferritin 116.00 Vitamin B12 411.0 Folate 6.6 TSH (Reflex) 2.500 04/11/24 04/12/24 04/12/24 18:43 00:01 05:14 WBC RBC Hgb Hct MCV MCH MCHC RDW Plt Count MPV Immature Gran % (Auto) Neut % (Auto) Lymph % (Auto) [place] % (Auto) Eos % (Auto) Baso % (Auto) Lymph # (Auto) [place] # (Auto) Eos # (Auto) Baso # (Auto) Abs Immat Gran (auto) Absolute Neuts (auto) Absolute Nucleated RBC Nucleated RBC % APTT POC Capillary Glucose 155 H 141 H 145 H Iron TIBC % Saturation Transferrin Ferritin Vitamin B12 Folate TSH (Reflex)
[2024-04-12] MEDS: IBUPROFEN IV 800 MG/200 ML 800 MG/200 ML BAG 400 MG IVPB (06:25)
[2024-04-12] MEDS: CENTRAL LINE FLUSH 10 ML IV PUSH ×4 (06:29→20:24)
[2024-04-12 07:54] LABS: Basophils Percent Auto 0.2 % (0.2-1.2); Eosinophils Absolute Auto 0.1 K/mm3 (0-0.3); Eosinophils Percent Auto 0.7 % (0-4.4); Hematocrit 26.9 % (37.0-47.0); Hemoglobin 8.4 g/dL (12.0-15.0); Immature Granulocyte Absolute 0.06 K/mm3 (0.00-0.031); Immature Granulocyte Percent A 0.6 % (0-0.5); Lymphocytes Absolute Auto 0.57 K/mm3 (0.9-3.2); Lymphocytes Percent Auto 5.8 % (18.3-44.2); Mean Corpuscular HGB Conc 31.2 g/dl (32-36); Mean Corpuscular Hemoglobin 26.1 pg (26-34); Mean Corpuscular Volume 83.5 fl (80-100); Mean Platelet Volume 10.9 fl (7.4-10.4); Monocytes Absolute Auto 0.4 K/mm3 (0.1-0.6); Monocytes Percent Auto 3.8 % (2.6-8.5); Neutrophils Absolute Auto 8.8 K/mm3 (1.3-6.7); Neutrophils Percent Auto 88.9 % (45.5-73.1); Platelet Count Result 173 k/mm3 (150-375); Red Blood Count 3.22 M/mm3 (4.2-5.4); White Blood Count 9.9 K/mm3 (4.5-10.0)
[2024-04-12 08:09] LABS: Alanine Aminotransferase 56 U/L (6-35); Albumin Level 2.6 g/dL (3.5-5.1); Alkaline Phosphatase 126 U/L (38-126); Anion Gap 6 mmol/L (4-12); Aspartate Amino Transferase 13 U/L (14-36); Bilirubin,Total 1.1 mg/dL (0.2-1.3); Blood Urea Nitrogen 3 mg/dL (7-17); Calcium 7.6 mg/dL (8.4-10.2); Carbon Dioxide 25 mmol/L (22-30); Chloride 105 mmol/L (98-107); Estimated CRCL calculation 188 ml/min; Estimated Glomerular Filt Rate > 60; Glucose 160 mg/dL (65-110); Lipase 303 U/L (23-300); Magnesium 2.2 mg/dL (1.6-2.3); Potassium 3.2 mmol/L (3.4-5.0); Sodium 136 mmol/L (137-145)
[2024-04-12] MEDS: PANTOPRAZOLE SODIUM IV 40 MG VIAL IV PUSH (09:01)
[2024-04-12] MEDS: MORPHINE SULFATE PCA (*CRX) 30 MG/30 ML SYR IV CONT ×2 (09:02→22:00)
[2024-04-12] MEDS: KCL 40 MEQ/D5/0.9% SOD CHL 1,000 ML 60 ML IV CONT (09:08)
[2024-04-12 11:22] LABS: Triglycerides 116 mg/dL (<150)
[2024-04-12 11:48] LABS: Anti Nuclear Antibody Titer 1:40 titer
--- NOTE | 2024-04-12 12:07 | P.PNGI_ITS ---
Progress Note: A&P Assessment and Plan (1) Gallstone pancreatitis: Code(s): K85.10 - Biliary acute pancreatitis without necrosis or infection Status: Acute Assessment and Plan: no choledocholithiasis, no need of ercp, noted GS and interstitial pancreatitis- repeat CT scan worsening nonloculated peripancreatic fluid and extensive stranding consistent with acute interstitial pancreatitis. less pain, liver enzymes improved- will advance to liquid diet on TPN per surgery- hopefully can discontinue soon (2) Upper abdominal pain: Code(s): R10.10 - Upper abdominal pain, unspecified Status: Acute Assessment and Plan: less pain (3) Transaminitis: Code(s): R74.01 - Elevation of levels of liver transaminase levels Status: Acute Assessment and Plan: from pancreatitis trending down no need of ercp (4) Elevated partial thromboplastin time (PTT): Code(s): R79.1 - Abnormal coagulation profile Status: Chronic Assessment and Plan: per bulb weeder with work up in progress, ? factor 8 vs von Willebrand (5) Nausea: Code(s): R11.0 - Nausea Status: Acute Subjective Date/time seen: 04/12/24 12:07 Interval history: she is feeling better, pain down to 4/10, more comfortable and having ice chips Review of Systems Review of Systems: All systems reviewed & are unremarkable except as noted in HPI and below Exam Const: General: no acute distress Orientation/consciousness: patient oriented x3 HENMT: Face/Nose/Sinus: Normal nares present Eyes: Sclera: sclerae normal Neck: Neck: supple Resp: Effort & Inspection: normal respiratory effort Cardio: Rate: regular rate GI: Inspection: non-distended GI Palp: Yes Soft to palpation, Yes Tenderness to palpation present (GI) (diffusely tender, worse in the upper abdomen- less painful ), No Guarding due to palpation present (GI) and No Rebound tenderness present Skin: General skin exam: no rashes or lesions noted Neuro: General: moves all extremities Extrem: General: no pedal edema and no calf tenderness Psych: Mental Status: mental status grossly normal Objective Data Vital Signs Vital Signs: Vital Signs - 24 hr 04/11/24 13:10 04/11/24 14:00 04/11/24 14:31 Temperature 98.6 F Pulse Rate 127 H Respiratory Rate 17 20 22 H Blood Pressure 121/70 Pulse Oximetry 95 95 95 Oxygen Delivery Fraction of Inspired Oxygen 04/11/24 14:31 04/11/24 16:00 04/11/24 17:38 Temperature 96.9 F L Pulse Rate 131 H 120 H Respiratory Rate 22 H 16 Blood Pressure 129/72 Pulse Oximetry 95 95 Oxygen Delivery Fraction of Inspired Oxygen 04/11/24 18:25 04/11/24 18:59 04/11/24 19:43 Temperature Pulse Rate 110 H Respiratory Rate 26 H 20 22 H Blood Pressure Pulse Oximetry 93 94 92 Oxygen Delivery Room Air Fraction of Inspired Oxygen 04/11/24 20:00 04/11/24 20:00 04/11/24 21:55 Temperature 97.2 F L Pulse Rate 115 H 100 Respiratory Rate 18 20 Blood Pressure 152/76 H Pulse Oximetry 94 90 Oxygen Delivery Fraction of Inspired Oxygen 04/12/24 00:00 04/12/24 00:00 04/12/24 00:40 Temperature 98.4 F Pulse Rate 115 H 115 H Respiratory Rate 21 H 18 Blood Pressure 114/60 Pulse Oximetry 93 92 Oxygen Delivery Fraction of Inspired Oxygen 04/12/24 02:00 04/12/24 04:00 04/12/24 04:00 Temperature Pulse Rate 98 Respiratory Rate 16 18 Blood Pressure Pulse Oximetry 91 91 Oxygen Delivery Fraction of Inspired Oxygen 04/12/24 04:00 04/12/24 06:00 04/12/24 07:53 Temperature 98.4 F Pulse Rate 111 H Respiratory Rate 18 19 20 Blood Pressure 124/68 Pulse Oximetry 90 91 91 Oxygen Delivery Fraction of Inspired Oxygen 04/12/24 08:00 04/12/24 08:00 04/12/24 09:01 Temperature 98.4 F Pulse Rate 110 H Respiratory Rate 20 18 Blood Pressure 111/63 Pulse Oximetry 94 97 97 Oxygen Delivery Room Air Fraction of Inspired Oxygen 21 04/12/24 09:01 04/12/24 09:02 04/12/24 09:02 Temperature Pulse Rate 93 Respiratory Rate 21 H 21 H Blood Pressure Pulse Oximetry 94 94 Oxygen Delivery Fraction of Inspired Oxygen 04/12/24 09:19 04/12/24 10:00 Temperature Pulse Rate 98 Respiratory Rate 21 H 18 Blood Pressure Pulse Oximetry 94 94 Oxygen Delivery Room Air Fraction of Inspired Oxygen Intake/Output Intake/Output: Intake & Output 04/09/24 04/10/24 04/11/2404/12/25 23:59 23:59 23:59 23:59 Intake Total 2189.6 2808.7 2739.2 2150.2 Balance 2189.6 2808.7 2739.2 2150.2 Meds/Results Medications: Active Medications Generic Name Dose Route Start Last Admin Trade Name Freq PRN Reason Stop Dose Admin Acetaminophen 650 mg 04/08/24 13:45 Acetaminophen 325 Mg Tablet PO Q4H PRN Mild Pain (1-3) or Fever Dextrose 12.5 gm 04/09/24 18:37 Dextrose 50% 25 Gm/50 Ml Syringe IV PUSH PRN PRN Hypoglycemia Protocol Glucagon 1 mg 04/09/24 18:37 Glucagon For Inj 1 Mg Vial IM PRN PRN Hypoglycemia Protocol Glucose 15 gm 04/09/24 18:37 Glucose Oral Gel 15 Gm Of Glucse In 37.5 Gm Tube PO PRN PRN Hypoglycemia Protocol Morphine Sulfate 30 mg in 30 mls @ 1 mls/hr 04/09/24 17:30 04/12/24 09:02 Morphine Sulfate Railway Signal Electrician IV CONT 1 mg/hr PRN PRN 1 mls/hr TECHNICAL TRAINING INSTRUCTOR Management Administration Protocol 1 MG/HR Dextrose 1,000 mls @ 100 mls/hr 04/09/24 18:37 Dextrose 5% 1,000 Ml IVPB PRN PRN Hypoglycemia Protocol Potassium Chloride/Dextrose/Sod Cl 1,000 mls @ 60 mls/hr 04/10/24 14:50 04/12/24 09:08 Kcl 40 Meq/D5ns IV CONT 60 mls/hr .[id number] JULIANO Administration Dextrose 1,000 mls @ 50 mls/hr 04/11/24 11:47 Dextrose 10% IV CONT .Q20H PRN if PN is interrupted Multivitamins 1.25 ml/ 1,002.5 mls @ 40 mls/hr 04/11/24 14:00 04/11/24 14:26 Multivitamins 1.25 ml/ Amino IV CONT 40 mls/hr Acids/Electrolytes/Dextrose .Q24H JULIANO Administration Protocol Fat Emulsion Intravenous 250 mls @ 20.833 mls/hr 04/11/24 14:00 04/12/24 02:28 Lipids 20% IVPB Infused Q24H JULIANO Infusion Aminocaproic Acid 5,000 mg/ 270 mls @ 50 mls/hr 04/11/24 20:00 04/12/24 07:03 Dextrose IVPB 04/12/24 15:59 50 mls/hr Q5H JULIANO Administration Ibuprofen 800 mg in 200 mls @ 400 mls/hr 04/12/24 10:32 Caldolor 800 Mg/200 Ml IVPB Q6H PRN Moderate Pain (4-6) Insulin Aspart 2 - 5 units 04/10/24 00:00 04/12/24 07:04 Insulin Aspart (*Bkc) 100 Units/Ml SUB-Q Not Given Q6HR [facility] Protocol Lidocaine 1 patch 04/08/24 19:02 04/11/24 08:47 Lidocaine 5% Patch TRANSDERM 1 patch Q24H PRN Administration back pain Naloxone HCl 0.1 mg 04/09/24 21:04 Naloxone Hcl 0.4 Mg/Ml Vial IV PUSH Q5MIN PRN Opioid Reversal Ondansetron HCl 4 mg 04/08/24 13:45 04/09/24 15:29 Ondansetron Inj 4 Mg/2 Ml Vial IV PUSH 4 mg Q6H PRN Administration Nausea And Vomiting Pantoprazole Sodium 40 mg 04/10/24 09:00 04/12/24 09:01 Pantoprazole Sodium Iv 40 Mg Vial IV PUSH 40 mg QAM JULIANO Administration Sertraline HCl 50 mg 04/09/24 09:00 04/12/24 09:12 Sertraline Hcl 50 Mg Tablet PO Not Given DAILY JULIANO Sodium Chloride 20 ml 04/11/24 14:26 Central Line Flush IV PUSH PRN PRN after blood draws Sodium Chloride 10 ml 04/11/24 14:26 Central Line Flush IV PUSH PRN PRN with TPN bag changes Sodium Chloride 10 ml 04/11/24 22:00 04/12/24 06:29 Central Line Flush IV PUSH 10 ml Q8HR JULIANO Administration Radiology Results: ITS Impressions Chest X-Ray 04/08/24 09:40 IMPRESSION: No focal infiltrate or effusion. MRCP 04/09/24 12:03 IMPRESSION: 1. Multiple tiny gallstones in the dependent aspect of the normal gallbladder. 2. Diffuse acute interstitial pancreatitis with prominent nonloculated peripancreatic fluid tracking into the intra and retroperitoneal soft tissue tissues. 3. No intra or extrahepatic biliary ductal dilation or evident choledocholit hiasis. 4. Increased signal in the dependent lower lobes which could represent atelectasis or pneumonia. ADDENDUM: 04/09/24 1301 CORRECTION: Incorrect contrast agent is noted in the technique section. The study was performed without and with 16 mL ProHance intravenous contrast. Pelvis Ultrasound 04/09/24 13:37 IMPRESSION: 1. Unremarkable pelvic ultrasound. Chest/Abdomen/Pelvis CTA 04/11/24 12:59 IMPRESSION: 1. No evident pulmonary embolism. Sensitivity mildly decreased in the segmental and more prominently in the subsegmental pulmonary arteries due to is suboptimal opacification of the pulmonary arteries as well as small amount of respiratory and streak artifact. 2. Small left pleural effusion with partial collapse of the left lower lobe and additional atelectasis in the right lower lobe. 3. Interval progression of nonloculated peripancreatic fluid and extensive stranding consistent with acute interstitial pancreatitis. 4. Small amount of ascites in the abdomen and pelvis with increased density of the fluid in the dependent cul-de-sac suggesting complex/exudative ascites which could be seen with small amount of hemoperitoneum or peritonitis. Labs Labs: Laboratory Results - last 24 hr 04/10/24 04/11/24 04/11/24 06:17 04:36 12:07 WBC RBC Hgb Hct MCV MCH MCHC RDW Plt Count MPV Immature Gran % (Auto) Neut % (Auto) Lymph % (Auto) [place] % (Auto) Eos % (Auto) Baso % (Auto) Lymph # (Auto) [place] # (Auto) Eos # (Auto) Baso # (Auto) Abs Immat Gran (auto) Absolute Neuts (auto) Absolute Nucleated RBC Nucleated RBC % APTT Sodium Potassium Chloride Carbon Dioxide Anion Gap BUN Creatinine Estim Creat Clear Calc Estimated GFR Glucose POC Capillary Glucose 123 H Calcium Phosphorus Magnesium Iron 20 L TIBC 243 L % Saturation 8 L Transferrin Ferritin 116.00 Total Bilirubin AST ALT Alkaline Phosphatase Total Protein Albumin Triglycerides Lipase Vitamin B12 411.0 Folate 6.6 JD Screen Positive A JD Titer 1:40 H JD Pattern A 04/11/24 04/11/24 04/12/24 12:24 18:43 00:01 WBC RBC Hgb Hct MCV MCH MCHC RDW Plt Count MPV Immature Gran % (Auto) Neut % (Auto) Lymph % (Auto) [place] % (Auto) Eos % (Auto) Baso % (Auto) Lymph # (Auto) [place] # (Auto) Eos # (Auto) Baso # (Auto) Abs Immat Gran (auto) Absolute Neuts (auto) Absolute Nucleated RBC Nucleated RBC % APTT 187.2 H* Sodium Potassium Chloride Carbon Dioxide Anion Gap BUN Creatinine Estim Creat Clear Calc Estimated GFR Glucose POC Capillary Glucose 155 H 141 H Calcium Phosphorus Magnesium Iron TIBC % Saturation Transferrin 167 L Ferritin Total Bilirubin AST ALT Alkaline Phosphatase Total Protein Albumin Triglycerides Lipase Vitamin B12 Folate JD Screen JD Titer JD Pattern 04/12/24 04/12/24 05:14 06:10 WBC 9.9 RBC 3.22 L Hgb 8.4 L Hct 26.9 L MCV 83.5 MCH 26.1 MCHC 31.2 L RDW 18.0 H Plt Count 173 MPV 10.9 H Immature Gran % (Auto) 0.6 H Neut % (Auto) 88.9 H Lymph % (Auto) 5.8 L [place] % (Auto) 3.8 Eos % (Auto) 0.7 Baso % (Auto) 0.2 Lymph # (Auto) 0.57 L [place] # (Auto) 0.4 Eos # (Auto) 0.1 Baso # (Auto) 0.0 Abs Immat Gran (auto) 0.06 H Absolute Neuts (auto) 8.8 H Absolute Nucleated RBC 0.000 Nucleated RBC % 0.0 APTT Sodium 136 L Potassium 3.2 L Chloride 105 Carbon Dioxide 25 Anion Gap 6 BUN 3 L Creatinine 0.35 L Estim Creat Clear Calc 188 Estimated GFR > 60 Glucose 160 H POC Capillary Glucose 145 H Calcium 7.6 L Phosphorus 2.0 L Magnesium 2.2 Iron TIBC % Saturation Transferrin Ferritin Total Bilirubin 1.1 AST 13 L ALT 56 H Alkaline Phosphatase 126 Total Protein 5.0 L Albumin 2.6 L Triglycerides 116 Lipase 303 H Vitamin B12 Folate JD Screen JD Titer JD Pattern
[2024-04-12 12:32] LABS: Factor VIII Activity 267 % normal (50-180)
[2024-04-12 12:37] LABS: Glucose Point of Care 149 mg/dl (65-105)
[2024-04-12] MEDS: AMINO ACIDS 5%/D15W/E-LYTES/CA 1,000 ML with MULTIVITAMINS-12 INJ VIAL 1 1.25 ML, MULTI... 40 ML IV CONT (14:29)
[2024-04-12] MEDS: FAT EMULSIONS IV 20% 250 ML 20 ML IVPB (14:29)
--- NOTE | 2024-04-12 15:14 | P.PNGS_ITS ---
Progress Note: A&P Assessment and Plan (1) Acute pancreatitis: Qualifiers: Acute pancreatitis complication: unspecified Pancreatitis type: unspecified pancreatitis type Qualified Code(s): K85.90 - Acute pancreatitis without necrosis or infection, unspecified Code(s): K85.90 - Acute pancreatitis without necrosis or infection, unspecified Status: Acute Assessment and Plan: Abdominal pain and tenderness improving. Lipase down to 300. WBC normalized and LFTs continue to trend down. Repeat CT yesterday showed severe pancreatitis but no pseudocyst or other additional findings. She has been advanced to a full liquid diet. Continue TPN for today until she is tolerating a substantial diet. This may be able to be discontinued tomorrow. Will stop her additional maintenance fluids. Continue to replace electrolytes as needed. Repeat labs and exam again tomorrow. (2) Cholelithiasis: Qualifiers: Biliary obstruction: with biliary obstruction Cholecystitis presence: without cholecystitis Cholelithiasis location: gallbladder Qualified Code(s): K80.21 - Calculus of gallbladder without cholecystitis with obstruction Code(s): K80.20 - Calculus of gallbladder without cholecystitis without obstruction Status: Chronic Assessment and Plan: Definitely does have gallstones and will need eventual cholecystectomy. (3) Transaminitis: Code(s): R74.01 - Elevation of levels of liver transaminase levels Status: Acute Assessment and Plan: Improving, total bilirubin normal. (4) Elevated partial thromboplastin time (PTT): Code(s): R79.1 - Abnormal coagulation profile Status: Chronic Assessment and Plan: Hematology recommendations noted. Testing for factor 8, von Willebrand, and lupus anticoagulant pending. Currently on aminocaproic acid infusion, vaginal bleeding improving. Plan I have discussed the patient's case and plan of care with Dr. Warner. Subjective Subjective Date/Time Seen: 04/12/24 15:14 Patient reports: no new complaints, feels better, pain is less, no flatus, no bowel movement and afebrile Interval history: Patient feeling better today. Her abdominal pain has improved. 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 She is still on TPN. She is not having any nausea or vomiting. She was started on aminocaproic infusion and her vaginal bleeding has slowed. She has been ambulating into the bathroom and tolerating this well. Review of Systems Review of Systems: All systems reviewed & are unremarkable except as noted in HPI and below Exam Const: General: comfortable and no acute distress Orientation/consciousness: patient oriented x3 GI: Inspection: non-distended GI Palp: Yes Soft to palpation, Yes Tenderness to palpation present (GI) (diffuse tenderness improved, still very tender in the upper abdomen), No Guarding due to palpation present (GI) and No Rebound tenderness present Auscultation: absent bowel sounds Objective Data Vital Signs Vital Signs: Vital Signs - 24 hr 04/11/24 16:00 04/11/24 17:38 04/11/24 18:25 Temperature 96.9 F L Pulse Rate 131 H 120 H Respiratory Rate 16 26 H Blood Pressure 129/72 Pulse Oximetry 95 93 Oxygen Delivery Fraction of Inspired Oxygen 04/11/24 18:59 04/11/24 19:43 04/11/24 20:00 Temperature 97.2 F L Pulse Rate 110 H 115 H Respiratory Rate 20 22 H 18 Blood Pressure 152/76 H Pulse Oximetry 94 92 94 Oxygen Delivery Room Air Fraction of Inspired Oxygen 04/11/24 20:00 04/11/24 21:55 04/12/24 00:00 Temperature Pulse Rate 100 Respiratory Rate 20 21 H Blood Pressure Pulse Oximetry 90 93 Oxygen Delivery Fraction of Inspired Oxygen 04/12/24 00:00 04/12/24 00:40 04/12/24 02:00 Temperature 98.4 F Pulse Rate 115 H 115 H Respiratory Rate 18 16 Blood Pressure 114/60 Pulse Oximetry 92 91 Oxygen Delivery Fraction of Inspired Oxygen 04/12/24 04:00 04/12/24 04:00 04/12/24 04:00 Temperature 98.4 F Pulse Rate 98 111 H Respiratory Rate 18 18 Blood Pressure 124/68 Pulse Oximetry 91 90 Oxygen Delivery Fraction of Inspired Oxygen 04/12/24 06:00 04/12/24 07:53 04/12/24 08:00 Temperature 98.4 F Pulse Rate 110 H Respiratory Rate 19 20 20 Blood Pressure 111/63 Pulse Oximetry 91 91 94 Oxygen Delivery Fraction of Inspired Oxygen 04/12/24 08:00 04/12/24 09:01 04/12/24 09:01 Temperature Pulse Rate 93 Respiratory Rate 18 Blood Pressure Pulse Oximetry 97 97 Oxygen Delivery Room Air Fraction of Inspired Oxygen 21 04/12/24 09:02 04/12/24 09:02 04/12/24 09:19 Temperature Pulse Rate 98 Respiratory Rate 21 H 21 H 21 H Blood Pressure Pulse Oximetry 94 94 94 Oxygen Delivery Room Air Fraction of Inspired Oxygen 04/12/24 10:00 04/12/24 12:00 04/12/24 12:00 Temperature Pulse Rate 103 H Respiratory Rate 18 22 H Blood Pressure Pulse Oximetry 94 93 Oxygen Delivery Fraction of Inspired Oxygen 04/12/24 12:00 Temperature 98.3 F Pulse Rate 114 H Respiratory Rate 18 Blood Pressure 116/69 Pulse Oximetry 97 Oxygen Delivery Fraction of Inspired Oxygen Intake/Output Intake/Output: Intake & Output 04/09/24 04/10/24 04/11/24 04/12/24 23:59 23:59 23:59 23:59 Intake Total 2189.6 2808.7 2739.2 3378.0 Balance 2189.6 2808.7 2739.2 3378.0 Meds/Results Medications: Active Medications Generic Name Dose Route Start Last Admin Trade Name Freq PRN Reason Stop Dose Admin Acetaminophen 650 mg 04/08/24 13:45 Acetaminophen 325 Mg Tablet PO Q4H PRN Mild Pain (1-3) or Fever Dextrose 12.5 gm 04/09/24 18:37 Dextrose 50% 25 Gm/50 Ml Syringe IV PUSH PRN PRN Hypoglycemia Protocol Glucagon 1 mg 04/09/24 18:37 Glucagon For Inj 1 Mg Vial IM PRN PRN Hypoglycemia Protocol Glucose 15 gm 04/09/24 18:37 Glucose Oral Gel 15 Gm Of Glucse In 37.5 Gm Tube PO PRN PRN Hypoglycemia Protocol Morphine Sulfate 30 mg in 30 mls @ 1 mls/hr 04/09/24 17:30 04/12/24 09:02 Morphine Sulfate Surgical Instrument Technician IV CONT 1 mg/hr PRN PRN 1 mls/hr JAZZ MUSICIAN Management Administration Protocol 1 MG/HR Dextrose 1,000 mls @ 100 mls/hr 04/09/24 18:37 Dextrose 5% 1,000 Ml IVPB PRN PRN Hypoglycemia Protocol Dextrose 1,000 mls @ 50 mls/hr 04/11/24 11:47 Dextrose 10% IV CONT .Q20H PRN if PN is interrupted Multivitamins 1.25 ml/ 1,002.5 mls @ 40 mls/hr 04/11/24 14:00 04/12/24 14:29 Multivitamins 1.25 ml/ Amino IV CONT 40 mls/hr Acids/Electrolytes/Dextrose .Q24H JULIANO Administration Protocol Fat Emulsion Intravenous 250 mls @ 20.833 mls/hr 04/11/24 14:00 04/12/24 14:29 Lipids 20% IVPB 20 mls/hr Q24H JULIANO Administration Aminocaproic Acid 5,000 mg/ 270 mls @ 50 mls/hr 04/11/24 20:00 04/12/24 12:22 Dextrose IVPB 04/12/24 15:59 50 mls/hr Q5H JULIANO Administration Ibuprofen 800 mg in 200 mls @ 400 mls/hr 04/12/24 10:32 Caldolor 800 Mg/200 Ml IVPB Q6H PRN Moderate Pain (4-6) Insulin Aspart 2 - 5 units 04/10/24 00:00 04/12/24 13:13 Insulin Aspart (*Bkc) 100 Units/Ml SUB-Q Not Given Q6HR [facility] Protocol Lidocaine 1 patch 04/08/24 19:02 04/11/24 08:47 Lidocaine 5% Patch TRANSDERM 1 patch Q24H PRN Administration back pain Naloxone HCl 0.1 mg 04/09/24 21:04 Naloxone Hcl 0.4 Mg/Ml Vial IV PUSH Q5MIN PRN Opioid Reversal Ondansetron HCl 4 mg 04/08/24 13:45 04/09/24 15:29 Ondansetron Inj 4 Mg/2 Ml Vial IV PUSH 4 mg Q6H PRN Administration Nausea And Vomiting Pantoprazole Sodium 40 mg 04/10/24 09:00 04/12/24 09:01 Pantoprazole Sodium Iv 40 Mg Vial IV PUSH 40 mg QAM JULIANO Administration Potassium Phos/Sodium Phos 1 packet 04/12/24 15:10 Potassium/Phosphorus/Sodium 1.5 Gm Packet PO 04/12/24 21:11 Q6H [facility] Sertraline HCl 50 mg 04/09/24 09:00 04/12/24 09:12 Sertraline Hcl 50 Mg Tablet PO Not Given DAILY [facility] Sodium Chloride 20 ml 04/11/24 14:26 Central Line Flush IV PUSH PRN PRN after blood draws Sodium Chloride 10 ml 04/11/24 14:26 Central Line Flush IV PUSH PRN PRN with TPN bag changes Sodium Chloride 10 ml 04/11/24 22:00 04/12/24 14:30 Central Line Flush IV PUSH 10 ml Q8HR JULIANO Administration Radiology Results: ITS Impressions Chest X-Ray 04/08/24 09:40 IMPRESSION: No focal infiltrate or effusion. MRCP 04/09/24 12:03 IMPRESSION: 1. Multiple tiny gallstones in the dependent aspect of the normal gallbladder. 2. Diffuse acute interstitial pancreatitis with prominent nonloculated peripancreatic fluid tracking into the intra and retroperitoneal soft tissue tissues. 3. No intra or extrahepatic biliary ductal dilation or evident choledocholithiasis. 4. Increased signal in the dependent lower lobes which could represent atelectasis or pneumonia. ADDENDUM: 04/09/24 1301 CORRECTION: Incorrect contrast agent is noted in the technique section. The study was performed without and with 16 mL ProHance intravenous contrast. Pelvis Ultrasound 04/09/24 13:37 IMPRESSION: 1. Unremarkable pelvic ultrasound. Chest/Abdomen/Pelvis CTA 04/11/24 12:59 IMPRESSION: 1. No evident pulmonary embolism. Sensitivity mildly decreased in the segmental and more prominently in the subsegmental pulmonary arteries due to is suboptimal opacification of the pulmonary arteries as well as small amount of respiratory and streak artifact. 2. Small left pleural effusion with partial collapse of the left lower lobe and additional atelectasis in the right lower lobe. 3. Interval progression of nonloculated peripancreatic fluid and extensive stranding consistent with acute interstitial pancreatitis. 4. Small amount of ascites in the abdomen and pelvis with increased density of the fluid in the dependent cul-de-sac suggesting complex/exudative ascites which could be seen with small amount of hemoperitoneum or peritonitis. Labs Labs: Laboratory Results - last 24 hr 04/10/24 04/11/24 04/11/24 06:17 04:36 12:24 WBC RBC Hgb Hct MCV MCH MCHC RDW Plt Count MPV Immature Gran % (Auto) Neut % (Auto) Lymph % (Auto) [place] % (Auto) Eos % (Auto) Baso % (Auto) Lymph # (Auto) [place] # (Auto) Eos # (Auto) Baso # (Auto) Abs Immat Gran (auto) Absolute Neuts (auto) Absolute Nucleated RBC Nucleated RBC % Factor VIII Activity 267 H Sodium Potassium Chloride Carbon Dioxide Anion Gap BUN Creatinine Estim Creat Clear Calc Estimated GFR Glucose POC Capillary Glucose Calcium Phosphorus Magnesium Iron 20 L TIBC 243 L % Saturation 8 L Transferrin 167 L Ferritin 116.00 Total Bilirubin AST ALT Alkaline Phosphatase Total Protein Albumin Triglycerides Lipase Vitamin B12 411.0 Folate 6.6 JD Screen Positive A JD Titer 1:40 H JD Pattern A 04/11/24 04/12/24 04/12/24 18:43 00:01 05:14 WBC RBC Hgb Hct MCV MCH MCHC RDW Plt Count MPV Immature Gran % (Auto) Neut % (Auto) Lymph % (Auto) [place] % (Auto) Eos % (Auto) Baso % (Auto) Lymph # (Auto) [place] # (Auto) Eos # (Auto) Baso # (Auto) Abs Immat Gran (auto) Absolute Neuts (auto) Absolute Nucleated RBC Nucleated RBC % Factor VIII Activity Sodium Potassium Chloride Carbon Dioxide Anion Gap BUN Creatinine Estim Creat Clear Calc Estimated GFR Glucose POC Capillary Glucose 155 H 141 H 145 H Calcium Phosphorus Magnesium Iron TIBC % Saturation Transferrin Ferritin Total Bilirubin AST ALT Alkaline Phosphatase Total Protein Albumin Triglycerides Lipase Vitamin B12 Folate JD Screen JD Titer JD Pattern 04/12/24 04/12/24 06:10 12:30 WBC 9.9 RBC 3.22 L Hgb 8.4 L Hct 26.9 L MCV 83.5 MCH 26.1 MCHC 31.2 L RDW 18.0 H Plt Count 173 MPV 10.9 H Immature Gran % (Auto) 0.6 H Neut % (Auto) 88.9 H Lymph % (Auto) 5.8 L [place] % (Auto) 3.8 Eos % (Auto) 0.7 Baso % (Auto) 0.2 Lymph # (Auto) 0.57 L [place] # (Auto) 0.4 Eos # (Auto) 0.1 Baso # (Auto) 0.0 Abs Immat Gran (auto) 0.06 H Absolute Neuts (auto) 8.8 H Absolute Nucleated RBC 0.000 Nucleated RBC % 0.0 Factor VIII Activity Sodium 136 L Potassium 3.2 L Chloride 105 Carbon Dioxide 25 Anion Gap 6 BUN 3 L Creatinine 0.35 L Estim Creat Clear Calc 188 Estimated GFR > 60 Glucose 160 H POC Capillary Glucose 149 H Calcium 7.6 L Phosphorus 2.0 L Magnesium 2.2 Iron TIBC % Saturation Transferrin Ferritin Total Bilirubin 1.1 AST 13 L ALT 56 H Alkaline Phosphatase 126 Total Protein 5.0 L Albumin 2.6 L Triglycerides 116 Lipase 303 H Vitamin B12 Folate JD Screen JD Titer JD Pattern
[2024-04-12] MEDS: POTASSIUM/PHOSPHORUS/SODIUM 1.5 GM PACKET 1 PACKET PO ×2 (16:58→20:24)
[2024-04-12] MEDS: POTASSIUM CHLORIDE 20 MEQ PACKET (FOR LIQUID) 40 MEQ PO (16:58)
[2024-04-12 18:51] LABS: Glucose Point of Care 190 mg/dl (65-105)
[2024-04-12 22:08] LABS: Lupus dRVVT Confirmation NEGATIVE (NEGATIVE); Lupus dRVVT Screen 49 sec (< OR = 45); PTT-LA Screen 106 sec (< OR = 40); Thrombin Clotting Time 17 sec (13-19)
[2024-04-12 23:22] LABS: Glucose Point of Care 98 mg/dl (65-105)
[2024-04-13] VITALS (18 sets, daily range): BP systolic 130–142; BP diastolic 71–80; PULSE 100–130; RESP 16–24; TEMP 36.5–37.3; O2SAT 90–98
[2024-04-13 04:02] LABS: Anti Cardiolipin Antibody IgA <2.0 APL-U/mL; Anti Cardiolipin Antibody IgG <2.0 GPL-U/mL
[2024-04-13] MEDS: IBUPROFEN IV 800 MG/200 ML 800 MG/200 ML BAG 200 MG IVPB (04:46)
[2024-04-13 05:54] LABS: Glucose Point of Care 150 mg/dl (65-105)
[2024-04-13] MEDS: CENTRAL LINE FLUSH 10 ML IV PUSH ×3 (05:58→21:05)
[2024-04-13 06:52] LABS: Basophils Percent Auto 0.3 % (0.2-1.2); Eosinophils Absolute Auto 0.1 K/mm3 (0-0.3); Eosinophils Percent Auto 0.8 % (0-4.4); Hematocrit 27.9 % (37.0-47.0); Hemoglobin 8.7 g/dL (12.0-15.0); Immature Granulocyte Absolute 0.27 K/mm3 (0.00-0.031); Immature Granulocyte Percent A 2.3 % (0-0.5); Lymphocytes Absolute Auto 0.84 K/mm3 (0.9-3.2); Lymphocytes Percent Auto 7.2 % (18.3-44.2); Mean Corpuscular HGB Conc 31.2 g/dl (32-36); Mean Corpuscular Hemoglobin 25.5 pg (26-34); Mean Corpuscular Volume 81.8 fl (80-100); Mean Platelet Volume 9.9 fl (7.4-10.4); Monocytes Absolute Auto 0.6 K/mm3 (0.1-0.6); Monocytes Percent Auto 4.7 % (2.6-8.5); Neutrophils Percent Auto 84.7 % (45.5-73.1); Platelet Count Result 207 k/mm3 (150-375); Red Blood Count 3.41 M/mm3 (4.2-5.4); Red Cell Distribution Width 18.1 % (11.5-14.5); White Blood Count 11.7 K/mm3 (4.5-10.0)
[2024-04-13 07:01] LABS: Alanine Aminotransferase 46 U/L (6-35); Albumin Level 2.8 g/dL (3.5-5.1); Alkaline Phosphatase 148 U/L (38-126); Anion Gap 6 mmol/L (4-12); Aspartate Amino Transferase 16 U/L (14-36); Bilirubin,Total 1.1 mg/dL (0.2-1.3); Blood Urea Nitrogen 4 mg/dL (7-17); Calcium 7.9 mg/dL (8.4-10.2); Carbon Dioxide 27 mmol/L (22-30); Chloride 103 mmol/L (98-107); Estimated CRCL calculation 205 ml/min; Estimated Glomerular Filt Rate > 60; Glucose 149 mg/dL (65-110); Lipase 242 U/L (23-300); Phosphorus 3.6 mg/dL (2.5-4.5); Sodium 136 mmol/L (137-145)
[2024-04-13] MEDS: PANTOPRAZOLE SODIUM IV 40 MG VIAL IV PUSH (08:33)
--- NOTE | 2024-04-13 08:51 | P.PNIM_ITS ---
Progress Note: A&P Assessment and Plan (1) Anxiety and depression: Code(s): F41.9 - Anxiety disorder, unspecified; F32.A - Depression, unspecified Status: Acute (2) Depression: Code(s): F32.A - Depression, unspecified Status: Acute (3) Acute pancreatitis: Qualifiers: Acute pancreatitis complication: unspecified Pancreatitis type: unspecified pancreatitis type Qualified Code(s): K85.90 - Acute pancreatitis without necrosis or infection, unspecified Code(s): K85.90 - Acute pancreatitis without necrosis or infection, unspecified Status: Acute (4) Cholelithiasis: Qualifiers: Biliary obstruction: with biliary obstruction Cholecystitis presence: without cholecystitis Cholelithiasis location: gallbladder Qualified Code(s): K80.21 - Calculus of gallbladder without cholecystitis with obstruction Code(s): K80.20 - Calculus of gallbladder without cholecystitis without obstruction Status: Chronic Plan (1) Gallstone pancreatitis: Code(s): K85.10 - Biliary acute pancreatitis without necrosis or infection Status: Acute Assessment and Plan: Patient presents with abdominal pain and found to have lipase >40K. CTA chest/abdomen/pelvis shows acute interstitial pancreatitis with prominent nonloculated acute peripancreatic fluid collections and stranding, tiny GS versus porcelain gallbladder with mural calcification along the dependent wall of the otherwise normal GB, no evident choledocholithiasis or intra or extra hepatic biliary ductal dilation and mild dependent atelectasis in the lower lobes. No pulmonary embolism or other acute cardiopulmonary disease. MRCP showing similar findings from the CT scan and no evidence of choledocholithiasis. Patient with GS Pancreatitis. General surgery and GI consulted and appreciate their input. TG 198. Lipase trending downward at 300. TB better at 1.1 and other liver tests normalize Repeat CT A/P (04/11) showing interval progression of non loculated peripancreatic fluid and extensive stranding consistent with acute interstitial pancreatitis Diet started. Continue TPN. Supportive care. Follow LFTs and lipase levels. (2) Cholelithiasis: Qualifiers: Biliary obstruction: with biliary obstruction Cholecystitis presence: without cholecystitis Cholelithiasis location: gallbladder Qualified Code(s): K80.21 - Calculus of gallbladder without cholecystitis with obstruction Code(s): K80.20 - Calculus of gallbladder without cholecystitis without obstruction Status: Chronic Assessment and Plan: As above (3) Transaminitis: Code(s): R74.01 - Elevation of levels of liver transaminase levels Status: Acute Assessment and Plan: As above. (4) Elevated partial thromboplastin time (PTT): Code(s): R79.1 - Abnormal coagulation profile Status: Chronic Assessment and Plan: PTT 197, previously 159 on 06/27/2023. Patient has previously been referred to Hematology but has not follow-up with this. Her mother and maternal grandmother have some form of clotting disorder and are both She has bleeding gums but no miscarriages or early bruising. 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 Oncology/hematology consulted and appreciate their input (5) Abnormal uterine bleeding: Code(s): N93.9 - Abnormal uterine and vaginal bleeding, unspecified Status: Acute Assessment and Plan: Patient reports vaginal bleeding since delivery in February. Hgb 13.2 on admisison. Pelvic ultrasound was unremarkable. Could be related to her elevated PTT. HH has trended down to 8.4 today but could be related to fluids. drafter tool design consulted and appreciate their input (6) Hypokalemia: Code(s): E87.6 - Hypokalemia Status: Acute Assessment and Plan: Repeated, potassium still low. Mag 2.2 Replace potassium Replace Phos as well. Subjective Date/time seen: 04/13/24 08:51 Interval history: Patient is on full liquid diet and TPN, labs reviewed, potassium 3.0, replete with potassium chloride 40 mg b.i.d. p.o. leukocytosis 11,700, patient is afebrile, no sign of infection. Patient cannot tolerate diet well Exam Narrative: GENERAL: Pleasant, in no acute distress. Well-nourished. - EYES: EOMI. Anicteric. - HENT: Moist mucous membranes. - LUNGS: Clear to auscultation bilateral ly, no wheezing, rhonchi, or rales. - CARDIOVASCULAR: Regular rate and rhyth m. No murmur. No JVD. - ABDOMEN: Soft, diffuse tender and some distended. No palpable masses. - EXTREMITIES: No edema. Peripheral puls es 2+. Non-tender. - NEUROLOGIC: No focal neurological defi cits. CN II-XII grossly intact. - PSYCHIATRIC: Awake, Alert and oriented x 3. Appropriate mood and affect. - SKIN: No rashes or lesions. Warm. - LYMPH: No cervical lymphadenopathy. Objective Data Vital Signs Vital Signs: Vital Signs - 24 hr 04/12/24 09:01 04/12/24 09:01 04/12/24 09:02 Temperature Pulse Rate 93 Respiratory Rate 21 H Blood Pressure Pulse Oximetry 97 94 Oxygen Delivery Room Air Fraction of Inspired Oxygen 04/12/24 09:02 04/12/24 09:19 04/12/24 10:00 Temperature Pulse Rate 98 Respiratory Rate 21 H 21 H 18 Blood Pressure Pulse Oximetry 94 94 94 Oxygen Delivery Room Air Fraction of Inspired Oxygen 04/12/24 12:00 04/12/24 12:00 04/12/24 12:00 Temperature 98.3 F Pulse Rate 103 H 114 H Respiratory Rate 22 H 18 Blood Pressure 116/69 Pulse Oximetry 93 97 Oxygen Delivery Fraction of Inspired Oxygen 04/12/24 14:00 04/12/24 16:00 04/12/24 17:28 Temperature Pulse Rate 110 H Respiratory Rate 22 H 20 Blood Pressure Pulse Oximetry 96 96 Oxygen Delivery Fraction of Inspired Oxygen 04/12/24 18:00 04/12/24 19:09 04/12/24 20:00 Temperature 98.6 F Pulse Rate 112 H Respiratory Rate 18 20 16 Blood Pressure 116/63 Pulse Oximetry 95 98 97 Oxygen Delivery Fraction of Inspired Oxygen 04/12/24 20:00 04/12/24 20:00 04/12/24 20:00 Temperature Pulse Rate 115 H Respiratory Rate 18 Blood Pressure Pulse Oximetry 94 Oxygen Delivery Room Air Fraction of Inspired Oxygen 04/12/24 20:08 04/12/24 22:00 04/12/24 22:00 Temperature Pulse Rate Respiratory Rate 17 17 Blood Pressure Pulse Oximetry 94 92 Oxygen Delivery Room Air Fraction of Inspired Oxygen 04/12/24 22:00 04/13/24 00:00 04/13/24 00:00 Temperature 98.7 F Pulse Rate 118 H Respiratory Rate 16 16 16 Blood Pressure 133/71 Pulse Oximetry 92 94 91 Oxygen Delivery Fraction of Inspired Oxygen 04/13/24 00:00 04/13/24 02:00 04/13/24 04:00 Temperature 98.8 F Pulse Rate 130 H 119 H Respiratory Rate 16 16 Blood Pressure 135/78 Pulse Oximetry 95 90 Oxygen Delivery Fraction of Inspired Oxygen 04/13/24 04:00 04/13/24 04:00 04/13/24 06:00 Temperature Pulse Rate 119 H Respiratory Rate 16 16 Blood Pressure Pulse Oximetry 96 95 Oxygen Delivery Fraction of Inspired Oxygen 04/13/24 08:00 Temperature 97.8 F Pulse Rate 104 H Respiratory Rate 18 Blood Pressure 130/80 Pulse Oximetry 94 Oxygen Delivery Fraction of Inspired Oxygen Intake/Output Intake/Output: Intake & Output 04/10/24 04/11/24 04/12/24 04/13/24 23:59 23:59 23:59 23:59 Intake Total 2808.7 2739.2 4036.0 450 Balance 2808.7 2739.2 4036.0 450 Meds/Results Medications: Active Medications Generic Name Dose Route Start Last Admin Trade Name Freq PRN Reason Stop Dose Admin Acetaminophen 650 mg 04/08/24 13:45 Acetaminophen 325 Mg Tablet PO Q4H PRN Mild Pain (1-3) or Fever Dextrose 12.5 gm 04/09/24 18:37 Dextrose 50% 25 Gm/50 Ml Syringe IV PUSH PRN PRN Hypoglycemia Protocol Glucagon 1 mg 04/09/24 18:37 Glucagon For Inj 1 Mg Vial IM PRN PRN Hypoglycemia Protocol Glucose 15 gm 04/09/24 18:37 Glucose Oral Gel 15 Gm Of Glucse In 37.5 Gm Tube PO PRN PRN Hypoglycemia Protocol Morphine Sulfate 30 mg in 30 mls @ 1 mls/hr 04/09/24 17:30 04/12/24 22:00 Morphine Sulfate Patient Safety Coordinator IV CONT 1 mg/hr PRN PRN 1 mls/hr [employer] C [employer] Management Administration Protocol 1 MG/HR Dextrose 1,000 mls @ 100 mls/hr 04/09/24 18:37 Dextrose 5% 1,000 Ml IVPB PRN PRN Hypoglycemia Protocol Dextrose 1,000 mls @ 50 mls/hr 04/11/24 11:47 Dextrose 10% IV CONT .Q20H PRN if PN is interrupted Multivitamins 1.25 ml/ 1,002.5 mls @ 40 mls/hr 04/11/24 14:00 04/12/24 14:29 Multivitamins 1.25 ml/ Amino IV CONT 40 mls/hr Acids/Electrolytes/Dextrose .Q24H JULIANO Administration Protocol Fat Emulsion Intravenous 250 mls @ 20.833 mls/hr 04/11/24 14:00 04/13/24 02:59 Lipids 20% IVPB Infused Q24H JULIANO Infusion Ibuprofen 800 mg in 200 mls @ 400 mls/hr 04/12/24 10:32 04/13/24 05:46 Caldolor 800 Mg/200 Ml IVPB Infused Q6H PRN Infusion Moderate Pain (4-6) Insulin Aspart 2 - 5 units 04/10/24 00:00 04/13/24 05:56 Insulin Aspart (*Bkc) 100 Units/Ml SUB-Q Not Given Q6HR [facility] Protocol Lidocaine 1 patch 04/08/24 19:02 04/11/24 08:47 Lidocaine 5% Patch TRANSDERM 1 patch Q24H PRN Administration back pain Naloxone HCl 0.1 mg 04/09/24 21:04 Naloxone Hcl 0.4 Mg/Ml Vial IV PUSH Q5MIN PRN Opioid Reversal Ondansetron HCl 4 mg 04/08/24 13:45 04/09/24 15:29 Ondansetron Inj 4 Mg/2 Ml Vial IV PUSH 4 mg Q6H PRN Administration Nausea And Vomiting Pantoprazole Sodium 40 mg 04/10/24 09:00 04/13/24 08:33 Pantoprazole Sodium Iv 40 Mg Vial IV PUSH 40 mg QAM JULIANO Administration Sertraline HCl 50 mg 04/09/24 09:00 04/13/24 08:33 Sertraline Hcl 50 Mg Tablet PO Not Given DAILY JULIANO Sodium Chloride 20 ml 04/11/24 14:26 Central Line Flush IV PUSH PRN PRN after blood draws Sodium Chloride 10 ml 04/11/24 14:26 04/12/24 20:24 Central Line Flush IV PUSH 10 ml PRN PRN Administration with TPN bag changes Sodium Chloride 10 ml 04/11/24 22:00 04/13/24 05:58 Central Line Flush IV PUSH 10 ml Q8HR JULIANO Administration Radiology Results: ITS Impressions Chest X-Ray 04/08/24 09:40 IMPRESSION: No focal infiltrate or effusion. MRCP 04/09/24 12:03 IMPRESSION: 1. Multiple tiny gallstones in the dependent aspect of the normal gallbladder. 2. Diffuse acute interstitial pancreatitis with prominent nonloculated peripancreatic fluid tracking into the intra and retroperitoneal soft tissue tissues. 3. No intra or extrahepatic biliary ductal dilation or evident choledo cholithiasis. 4. Increased signal in the dependent lower lobes which could represent atelectasis or pneumonia. ADDENDUM: 04/09/24 1301 CORRECTION: Incorrect contrast agent is noted in the technique section. The study was performed without and with 16 mL ProHance intravenous contrast. Pelvis Ultrasound 04/09/24 13:37 IMPRESSION: 1. Unremarkable pelvic ultrasound. Chest/Abdomen/Pelvis CTA 04/11/24 12:59 IMPRESSION: 1. No evident pulmonary embolism. Sensitivity mildly decreased in the segmental and more prominently in the subsegmental pulmonary arteries due to is suboptimal opacification of the pulmonary arteries as well as small amount of respiratory and streak artifact. 2. Small left pleural effusion with partial collapse of the left lower lobe and additional atelectasis in the right lower lobe. 3. Interval progression of nonloculated peripancreatic fluid and extensive stranding consistent with acute interstitial pancreatitis. 4. Small amount of ascites in the abdomen and pelvis with increased density of the fluid in the dependent cul-de-sac suggesting complex/exudative ascites which could be seen with small amount of hemoperitoneum or peritonitis. Labs Labs: Laboratory Results - last 24 hr 04/10/24 04/12/24 04/12/24 06:17 06:10 12:30 WBC RBC Hgb Hct MCV MCH MCHC RDW Plt Count MPV Immature Gran % (Auto) Neut % (Auto) Lymph % (Auto) [place] % (Auto) Eos % (Auto) Baso % (Auto) Lymph # (Auto) [place] # (Auto) Eos # (Auto) Baso # (Auto) Abs Immat Gran (auto) Absolute Neuts (auto) Absolute Nucleated RBC Nucleated RBC % Thrombin Time 17 LA PTT Screen 106 H dRVVT Screen 49 H dRVVT Confirm Interp Negative Hexagonal Phase Confirm Positive A Lupus Anticoag Interp See note Factor VIII Activity 267 H Sodium Potassium Chloride Carbon Dioxide Anion Gap BUN Creatinine Estim Creat Clear Calc Estimated GFR Glucose POC Capillary Glucose 149 H Calcium Phosphorus Magnesium Total Bilirubin AST ALT Alkaline Phosphatase Total Protein Albumin Triglycerides 116 Lipase JD Screen Positive A JD Titer 1:40 H JD Pattern A Anti-Cardiolipin IgG Ab <2.0 Anti-Cardiolipin IgA Ab <2.0 Anti-Cardiolipin IgM Ab 10.0 04/12/24 04/12/24 04/13/24 18:46 23:16 04:40 WBC RBC Hgb Hct MCV MCH MCHC RDW Plt Count MPV Immature Gran % (Auto) Neut % (Auto) Lymph % (Auto) [place] % (Auto) Eos % (Auto) Baso % (Auto) Lymph # (Auto) [place] # (Auto) Eos # (Auto) Baso # (Auto) Abs Immat Gran (auto) Absolute Neuts (auto) Absolute Nucleated RBC Nucleated RBC % Thrombin Time LA PTT Screen dRVVT Screen dRVVT Confirm Interp Hexagonal Phase Confirm Lupus Anticoag Interp Factor VIII Activity Sodium Potassium Chloride Carbon Dioxide Anion Gap BUN Creatinine Estim Creat Clear Calc Estimated GFR Glucose POC Capillary Glucose 190 H 98 150 H Calcium Phosphorus Magnesium Total Bilirubin AST ALT Alkaline Phosphatase Total Protein Albumin Triglycerides Lipase JD Screen JD Titer JD Pattern Anti-Cardiolipin IgG Ab Anti-Cardiolipin IgA Ab Anti-Cardiolipin IgM Ab 04/13/24 06:43 WBC 11.7 H RBC 3.41 L Hgb 8.7 L Hct 27.9 L MCV 81.8 MCH 25.5 L MCHC 31.2 L RDW 18.1 H Plt Count 207 MPV 9.9 Immature Gran % (Auto) 2.3 H Neut % (Auto) 84.7 H Lymph % (Auto) 7.2 L [place] % (Auto) 4.7 Eos % (Auto) 0.8 Baso % (Auto) 0.3 Lymph # (Auto) 0.84 L [place] # (Auto) 0.6 Eos # (Auto) 0.1 Baso # (Auto) 0.0 Abs Immat Gran (auto) 0.27 H Absolute Neuts (auto) 10.0 H Absolute Nucleated RBC 0.000 Nucleated RBC % 0.0 Thrombin Time LA PTT Screen dRVVT Screen dRVVT Confirm Interp Hexagonal Phase Confirm Lupus Anticoag Interp Factor VIII Activity Sodium 136 L Potassium 3.0 L Chloride 103 Carbon Dioxide 27 Anion Gap 6 BUN 4 L Creatinine 0.34 L Estim Creat Clear Calc 205 Estimated GFR > 60 Glucose 149 H POC Capillary Glucose Calcium 7.9 L Phosphorus 3.6 Magnesium 2.0 Total Bilirubin 1.1 AST 16 ALT 46 H Alkaline Phosphatase 148 H Total Protein 6.0 L Albumin 2.8 L Triglycerides Lipase 242 JD Screen JD Titer JD Pattern Anti-Cardiolipin IgG Ab Anti-Cardiolipin IgA Ab Anti-Cardiolipin IgM Ab
[2024-04-13] MEDS: POTASSIUM CHLORIDE 20 MEQ PACKET (FOR LIQUID) 40 MEQ PO ×2 (10:21→17:35)
[2024-04-13 12:05] LABS: Glucose Point of Care 127 mg/dl (65-105)
[2024-04-13 12:24] LABS: Factor VIII Activity 278 % normal (50-180); von Willebrand Factor Ag 216 % (50-217)
[2024-04-13 13:24] LABS: von Willebrand Factor Ag 209 % (50-217)
[2024-04-13] MEDS: MORPHINE SULFATE PCA (*CRX) 30 MG/30 ML SYR IV CONT (13:25)
--- NOTE | 2024-04-13 13:55 | WPDGIPROGNO ---
Progress Note: A&P Assessment and Plan (1) Gallstone pancreatitis: Code(s): K85.10 - Biliary acute pancreatitis without necrosis or infection Status: Acute Assessment and Plan: GS and interstitial pancreatitis- repeat CT scan worsening nonloculated peripancreatic fluid and extensive stranding consistent with acute interstitial pancreatitis. liver enzymes keep trending down, still with some pain on TPN per surgery- hopefully can discontinue soon (2) Upper abdominal pain: Code(s): R10.10 - Upper abdominal pain, unspecified Status: Acute Assessment and Plan: less pain (3) Transaminitis: Code(s): R74.01 - Elevation of levels of liver transaminase levels Status: Acute Assessment and Plan: from pancreatitis trending down no need of ercp (4) Elevated partial thromboplastin time (PTT): Code(s): R79.1 - Abnormal coagulation profile Status: Chronic Assessment and Plan: per photogeologist with work up in progress, ? 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 Review of Systems Review of Systems: All systems reviewed & are unremarkable except as noted in HPI and below Exam Const: General: no acute distress Orientation/consciousness: patient oriented x3 HENMT: Face/Nose/Sinus: Normal nares present Eyes: Sclera: sclerae normal Neck: Neck: supple Resp: Effort & Inspection: normal respiratory effort Cardio: Rate: regular rate GI: Inspection: non-distended GI Palp: Yes Soft to palpation, Yes Tenderness to palpation present (GI) (diffusely tender, worse in the upper abdomen- less painful ), No Guarding due to palpation present (GI) and No Rebound tenderness present Skin: General skin exam: no rashes or lesions noted Neuro: General: moves all extremities Extrem: General: no pedal edema and no calf tenderness Psych: Mental Status: mental status grossly normal Objective Data Vital Signs Vital Signs: Vital Signs - 24 hr 04/12/24 14:00 04/12/24 16:00 04/12/24 17:28 Temperature Pulse Rate 110 H Respiratory Rate 22 H 20 Blood Pressure Pulse Oximetry 96 96 Oxygen Delivery Fraction of Inspired Oxygen 04/12/24 18:00 04/12/24 19:09 04/12/24 20:00 Temperature 98.6 F Pulse Rate 112 H Respiratory Rate 18 20 16 Blood Pressure 116/63 Pulse Oximetry 95 98 97 Oxygen Delivery Fraction of Inspired Oxygen 04/12/24 20:00 04/12/24 20:00 04/12/24 20:00 Temperature Pulse Rate 115 H Respiratory Rate 18 Blood Pressure Pulse Oximetry 94 Oxygen Delivery Room Air Fraction of Inspired Oxygen 04/12/24 20:08 04/12/24 22:00 04/12/24 22:00 Temperature Pulse Rate Respiratory Rate 17 17 Blood Pressure Pulse Oximetry 94 92 Oxygen Delivery Room Air Fraction of Inspired Oxygen 04/12/24 22:00 04/13/24 00:00 04/13/24 00:00 Temperature 98.7 F Pulse Rate 118 H Respiratory Rate 16 16 16 Blood Pressure 133/71 Pulse Oximetry 92 94 91 Oxygen Delivery Fraction of Inspired Oxygen 04/13/24 00:00 04/13/24 02:00 04/13/24 04:00 Temperature 98.8 F Pulse Rate 130 H 119 H Respiratory Rate 16 16 Blood Pressure 135/78 Pulse Oximetry 95 90 Oxygen Delivery Fraction of Inspired Oxygen 04/13/24 04:00 04/13/24 04:00 04/13/24 06:00 Temperature Pulse Rate 119 H Respiratory Rate 16 16 Blood Pressure Pulse Oximetry 96 95 Oxygen Delivery Fraction of Inspired Oxygen 04/13/24 08:00 04/13/24 08:04 04/13/24 08:33 Temperature 97.8 F Pulse Rate 104 H 102 H Respiratory Rate 18 20 Blood Pressure 130/80 Pulse Oximetry 94 95 Oxygen Delivery Fraction of Inspired Oxygen 04/13/24 08:33 04/13/24 08:33 04/13/24 10:00 Temperature Pulse Rate 100 100 Respiratory Rate 20 20 Blood Pressure Pulse Oximetry 95 96 Oxygen Delivery Room Air Fraction of Inspired Oxygen 04/13/24 10:08 04/13/24 12:01 04/13/24 12:01 Temperature Pulse Rate 110 H 117 H Respiratory Rate 23 H 20 Blood Pressure Pulse Oximetry 95 96 Oxygen Delivery Room Air Fraction of Inspired Oxygen 21 04/13/24 13:25 Temperature Pulse Rate Respiratory Rate 24 H Blood Pressure Pulse Oximetry 96 Oxygen Delivery Fraction of Inspired Oxygen Intake/Output Intake/Output: Intake & Output 04/10/24 04/11/24 04/12/24 04/13/24 23:59 23:59 23:59 23:59 Intake Total 2808.7 2739.2 4036.0 598 Balance 2808.7 2739.2 4036.0 598 Meds/Results Medications: Active Medications Generic Name Dose Route Start Last Admin Trade Name Freq PRN Reason Stop Dose Admin Acetaminophen 650 mg 04/08/24 13:45 Acetaminophen 325 Mg Tablet PO Q4H PRN Mild Pain (1-3) or Fever Dextrose 12.5 gm 04/09/24 18:37 Dextrose 50% 25 Gm/50 Ml Syringe IV PUSH PRN PRN Hypoglycemia Protocol Glucagon 1 mg 04/09/24 18:37 Glucagon For Inj 1 Mg Vial IM PRN PRN Hypoglycemia Protocol Glucose 15 gm 04/09/24 18:37 Glucose Oral Gel 15 Gm Of Glucse In 37.5 Gm Tube PO PRN PRN Hypoglycemia Protocol Morphine Sulfate 30 mg in 30 mls @ 1 mls/hr 04/09/24 17:30 04/13/24 13:25 Morphine Sulfate Maintenance Department Technician IV CONT 1 mg/hr PRN PRN 1 mls/hr [employer]ANCE [employer] CHASSIS Management Administration Protocol 1 MG/HR Dextrose 1,000 mls @ 100 mls/hr 04/09/24 18:37 Dextrose 5% 1,000 Ml IVPB PRN PRN Hypoglycemia Protocol Dextrose 1,000 mls @ 50 mls/hr 04/11/24 11:47 Dextrose 10% IV CONT .Q20H PRN if PN is interrupted Multivitamins 1.25 ml/ 1,002.5 mls @ 40 mls/hr 04/11/24 14:00 04/12/24 14:29 Multivitamins 1.25 ml/ Amino IV CONT 40 mls/hr Acids/Electrolytes/Dextrose .Q24H JULIANO Administration Protocol Fat Emulsion Intravenous 250 mls @ 20.833 mls/hr 04/11/24 14:00 04/13/24 02:59 Lipids 20% IVPB Infused Q24H JULIANO Infusion Ibuprofen 800 mg in 200 mls @ 400 mls/hr 04/12/24 10:32 04/13/24 05:46 Caldolor 800 Mg/200 Ml IVPB Infused Q6H PRN Infusion Moderate Pain (4-6) Insulin Aspart 2 - 5 units 04/10/24 00:00 04/13/24 12:22 Insulin Aspart (*Bkc) 100 Units/Ml SUB-Q Not Given Q6HR [facility] Protocol Lidocaine 1 patch 04/08/24 19:02 04/11/24 08:47 Lidocaine 5% Patch TRANSDERM 1 patch Q24H PRN Administration back pain Naloxone HCl 0.1 mg 04/09/24 21:04 Naloxone Hcl 0.4 Mg/Ml Vial IV PUSH Q5MIN PRN Opioid Reversal Ondansetron HCl 4 mg 04/08/24 13:45 04/09/24 15:29 Ondansetron Inj 4 Mg/2 Ml Vial IV PUSH 4 mg Q6H PRN Administration Nausea And Vomiting Pantoprazole Sodium 40 mg 04/10/24 09:00 04/13/24 08:33 Pantoprazole Sodium Iv 40 Mg Vial IV PUSH 40 mg QAM JULIANO Administration Potassium Chloride 40 meq 04/13/24 09:30 04/13/24 10:21 Potassium Chloride 20 Meq Packet (For Liquid) PO 40 meq BID JULIANO Administration Sertraline HCl 50 mg 04/09/24 09:00 04/13/24 08:33 Sertraline Hcl 50 Mg Tablet PO Not Given DAILY JULIANO Sodium Chloride 20 ml 04/11/24 14:26 Central Line Flush IV PUSH PRN PRN after blood draws Sodium Chloride 10 ml 04/11/24 14:26 04/12/24 20:24 Central Line Flush IV PUSH 10 ml PRN PRN Administration with TPN bag changes Sodium Chloride 10 ml 04/11/24 22:00 04/13/24 05:58 Central Line Flush IV PUSH 10 ml Q8HR JULIANO Administration Radiology Results: ITS Impressions Chest X-Ray 04/08/24 09:40 IMPRESSION: No focal infiltrate or effusion. MRCP 04/09/24 12:03 IMPRESSION: 1. Multiple tiny gallstones in the dependent aspect of the normal gallbladder. 2. Diffuse acute interstitial pancreatitis with prominent nonloculated peripancreatic fluid tracking into the intra and retroperitoneal soft tissue tissues. 3. No intra or extrahepatic biliary ductal dilation or evident choledocholithiasis. 4. Increased signal in the dependent lower lobes which could represent atelectasis or pneumonia. ADDENDUM: 04/09/24 7181 CORRECTION: Incorrect contrast agent is noted in the technique section. The study was performed without and with 16 mL ProHance intravenous contrast. Pelvis Ultrasound 04/09/24 13:37 IMPRESSION: 1. Unremarkable pelvic ultrasound. Chest/Abdomen/Pelvis CTA 04/11/24 12:59 IMPRESSION: 1. No evident pulmonary embolism. Sensitivity mildly decreased in the segmental and more prominently in the subsegmental pulmonary arteries due to is suboptimal opacification of the pulmonary arteries as well as small amount of respiratory and streak artifact. 2. Small left pleural effusion with partial collapse of the left lower lobe and additional atelectasis in the right lower lobe. 3. Interval progression of nonloculated peripancreatic fluid and extensive stranding consistent with acute interstitial pancreatitis. 4. Small amount of ascites in the abdomen and pelvis with increased density of the fluid in the dependent cul-de-sac suggesting complex/exudative ascites which could be seen with small amount of hemoperitoneum or peritonitis. Labs Labs: Laboratory Results - last 24 hr 04/10/24 04/10/24 04/12/24 06:17 06:17 18:46 WBC RBC Hgb Hct MCV MCH MCHC RDW Plt Count MPV Immature Gran % (Auto) Neut % (Auto) Lymph % (Auto) Reagan % (Auto) Eos % (Auto) Baso % (Auto) Lymph # (Auto) Reagan # (Auto) Eos # (Auto) Baso # (Auto) Abs Immat Gran (auto) Absolute Neuts (auto) Absolute Nucleated RBC Nucleated RBC % Thrombin Time 17 LA PTT Screen 106 H dRVVT Screen 49 H dRVVT Confirm Interp Negative Hexagonal Phase Confirm Positive A Lupus Anticoag Interp See note Factor VIII Activity 278 H von Willebrand Antigen 216 209 Ristocetin Cofac Assay 189 Sodium Potassium Chloride Carbon Dioxide Anion Gap BUN Creatinine Estim Creat Clear Calc Estimated GFR Glucose POC Capillary Glucose 190 H Calcium Phosphorus Magnesium Total Bilirubin AST ALT Alkaline Phosphatase Total Protein Albumin Lipase Anti-Cardiolipin IgG Ab <2.0 Anti-Cardiolipin IgA Ab <2.0 Anti-Cardiolipin IgM Ab 10.0 04/12/24 04/13/24 04/13/24 23:16 04:40 06:43 WBC 11.7 H RBC 3.41 L Hgb 8.7 L Hct 27.9 L MCV 81.8 MCH 25.5 L MCHC 31.2 L RDW 18.1 H Plt Count 207 MPV 9.9 Immature Gran % (Auto) 2.3 H Neut % (Auto) 84.7 H Lymph % (Auto) 7.2 L Reagan % (Auto) 4.7 Eos % (Auto) 0.8 Baso % (Auto) 0.3 Lymph # (Auto) 0.84 L Reagan # (Auto) 0.6 Eos # (Auto) 0.1 Baso # (Auto) 0.0 Abs Immat Gran (auto) 0.27 H Absolute Neuts (auto) 10.0 H Absolute Nucleated RBC 0.000 Nucleated RBC % 0.0 Thrombin Time LA PTT Screen dRVVT Screen dRVVT Confirm Interp Hexagonal Phase Confirm Lupus Anticoag Interp Factor VIII Activity von Willebrand Antigen Ristocetin Cofac Assay Sodium 136 L Potassium 3.0 L Chloride 103 Carbon Dioxide 27 Anion Gap 6 BUN 4 L Creatinine 0.34 L Estim Creat Clear Calc 205 Estimated GFR > 60 Glucose 149 H POC Capillary Glucose 98 150 H Calcium 7.9 L Phosphorus 3.6 Magnesium 2.0 Total Bilirubin 1.1 AST 16 ALT 46 H Alkaline Phosphatase 148 H Total Protein 6.0 L Albumin 2.8 L Lipase 242 Anti-Cardiolipin IgG Ab Anti-Cardiolipin IgA Ab Anti-Cardiolipin IgM Ab 04/13/24 12:01 WBC RBC Hgb Hct MCV MCH MCHC RDW Plt Count MPV Immature Gran % (Auto) Neut % (Auto) Lymph % (Auto) Reagan % (Auto) Eos % (Auto) Baso % (Auto) Lymph # (Auto) Reagan # (Auto) Eos # (Auto) Baso # (Auto) Abs Immat Gran (auto) Absolute Neuts (auto) Absolute Nucleated RBC Nucleated RBC % Thrombin Time LA PTT Screen dRVVT Screen dRVVT Confirm Interp Hexagonal Phase Confirm Lupus Anticoag Interp Factor VIII Activity von Willebrand Antigen Ristocetin Cofac Assay Sodium Potassium Chloride Carbon Dioxide Anion Gap BUN Creatinine Estim Creat Clear Calc Estimated GFR Glucose POC Capillary Glucose 127 H Calcium Phosphorus Magnesium Total Bilirubin AST ALT Alkaline Phosphatase Total Protein Albumin Lipase Anti-Cardiolipin IgG Ab Anti-Cardiolipin IgA Ab Anti-Cardiolipin IgM Ab
[2024-04-13] MEDS: AMINO ACIDS 5%/D15W/E-LYTES/CA 1,000 ML with MULTIVITAMINS-12 INJ VIAL 1 1.25 ML, MULTI... 40 ML IV CONT (14:49)
[2024-04-13] MEDS: FAT EMULSIONS IV 20% 250 ML 20 ML IVPB (14:50)
--- NOTE | 2024-04-13 15:46 | P.PNGS_ITS ---
Progress Note: A&P Assessment and Plan (1) Acute pancreatitis: Qualifiers: Acute pancreatitis complication: unspecified Pancreatitis type: unspecified pancreatitis type Qualified Code(s): K85.90 - Acute pancreatitis without necrosis or infection, unspecified Code(s): K85.90 - Acute pancreatitis without necrosis or infection, unspecified Status: Acute Assessment and Plan: More abdominal pain after advancing her diet last night and today. WBC count went up slightly to 11,000 this morning. Will continue the [employer] again today, which seems to be helping control her pain. Will keep her full liquids and continue TPN for now. Potassium 3.0 and being replaced with BID KCL 40 meq. Encouraged her to try increasing activity and sitting up in the chair for meals. Repeat labs and exam again tomorrow. (2) Cholelithiasis: Qualifiers: Biliary obstruction: with biliary obstruction Cholecystitis presence: without cholecystitis Cholelithiasis location: gallbladder Qualified Code(s): K80.21 - Calculus of gallbladder without cholecystitis with obstruction Code(s): K80.20 - Calculus of gallbladder without cholecystitis without obstruction Status: Chronic Assessment and Plan: Definitely does have gallstones and will need eventual cholecystectomy, which would likely be done as an outpatient after her pancreatitis resolves. (3) Transaminitis: Code(s): R74.01 - Elevation of levels of liver transaminase levels Status: Acute Assessment and Plan: Improving, total bilirubin normal. (4) Elevated partial thromboplastin time (PTT): Code(s): R79.1 - Abnormal coagulation profile Status: Chronic Plan I have discussed the patient's case and plan of care with Dr. Warner. Subjective Subjective Date/Time Seen: 04/13/24 15:46 Patient reports: still having pain, tolerating liquids well, voiding w/o difficulty, flatus, no bowel movement and afebrile Interval history: Patient reports having more abdominal pain today. She feels like eating aggravates her pain so she has only had minimal intake. She had a little amount of tomato soup for lunch and only had some orange juice and liquids for breakfast. She denies any nausea or vomiting. Reports having more gas pains today and is passing lots of flatus. She feels like she could have a BM, but has not yet. She has been using the [employer] more than the last two days due to her pain. She is also taking the IV Ibuprofen, which she feels is helping with her pain control. Exam Const: General: comfortable and no acute distress Orientation/consciousness: patient oriented x3 GI: Inspection: non-distended GI Palp: Yes Soft to palpation, Yes Tenderness to palpation present (GI) (still diffusely tender, worse in the upper abdomen), No Guarding due to palpation present (GI) and No Rebound tenderness present Auscultation: Hypoactive bowel sounds present Extrem: General: no pedal edema and no calf tenderness Objective Data Vital Signs Vital Signs: Vital Signs - 24 hr 04/12/24 16:00 04/12/24 17:28 04/12/24 18:00 Temperature Pulse Rate 110 H Respiratory Rate 20 18 Blood Pressure Pulse Oximetry 96 95 Oxygen Delivery Fraction of Inspired Oxygen 04/12/24 19:09 04/12/24 20:00 04/12/24 20:00 Temperature 98.6 F Pulse Rate 112 H Respiratory Rate 20 16 Blood Pressure 116/63 Pulse Oximetry 98 97 Oxygen Delivery Room Air Fraction of Inspired Oxygen 04/12/24 20:00 04/12/24 20:00 04/12/24 20:08 Temperature Pulse Rate 115 H Respiratory Rate 18 Blood Pressure Pulse Oximetry 94 94 Oxygen Delivery Room Air Fraction of Inspired Oxygen 04/12/24 22:00 04/12/24 22:00 04/12/24 22:00 Temperature Pulse Rate Respiratory Rate 17 17 16 Blood Pressure Pulse Oximetry 92 92 Oxygen Delivery Fraction of Inspired Oxygen 04/13/24 00:00 04/13/24 00:00 04/13/24 00:00 Temperature 98.7 F Pulse Rate 118 H 130 H Respiratory Rate 16 16 Blood Pressure 133/71 Pulse Oximetry 94 91 Oxygen Delivery Fraction of Inspired Oxygen 04/13/24 02:00 04/13/24 04:00 04/13/24 04:00 Temperature 98.8 F Pulse Rate 119 H Respiratory Rate 16 16 16 Blood Pressure 135/78 Pulse Oximetry 95 90 96 Oxygen Delivery Fraction of Inspired Oxygen 04/13/24 04:00 04/13/24 06:00 04/13/24 08:00 Temperature 97.8 F Pulse Rate 119 H 104 H Respiratory Rate 16 18 Blood Pressure 130/80 Pulse Oximetry 95 94 Oxygen Delivery Fraction of Inspired Oxygen 04/13/24 08:04 04/13/24 08:33 04/13/24 08:33 Temperature Pulse Rate 102 H 100 Respiratory Rate 20 20 Blood Pressure Pulse Oximetry 95 95 Oxygen Delivery Room Air Fraction of Inspired Oxygen 04/13/24 08:33 04/13/24 10:00 04/13/24 10:08 Temperature Pulse Rate 100 110 H Respiratory Rate 20 23 H Blood Pressure Pulse Oximetry 96 95 Oxygen Delivery Room Air Fraction of Inspired Oxygen 21 04/13/24 12:01 04/13/24 12:01 04/13/24 13:25 Temperature Pulse Rate 117 H Respiratory Rate 20 24 H Blood Pressure Pulse Oximetry 96 96 Oxygen Delivery Fraction of Inspired Oxygen 04/13/24 14:00 Temperature 97.7 F Pulse Rate 124 H Respiratory Rate 18 Blood Pressure 142/75 H Pulse Oximetry 98 Oxygen Delivery Fraction of Inspired Oxygen Intake/Output Intake/Output: Intake & Output 04/10/24 04/11/24 04/12/24 04/13/24 23:59 23:59 23:59 23:59 Intake Total 2808.7 2739.2 4036.0 1689.3 Balance 2808.7 2739.2 4036.0 1689.3 Meds/Results Medications: Active Medications Generic Name Dose Route Start Last Admin Trade Name Freq PRN Reason Stop Dose Admin Acetaminophen 650 mg 04/08/24 13:45 Acetaminophen 325 Mg Tablet PO Q4H PRN Mild Pain (1-3) or Fever Dextrose 12.5 gm 04/09/24 18:37 Dextrose 50% 25 Gm/50 Ml Syringe IV PUSH PRN PRN Hypoglycemia Protocol Glucagon 1 mg 04/09/24 18:37 Glucagon For Inj 1 Mg Vial IM PRN PRN Hypoglycemia Protocol Glucose 15 gm 04/09/24 18:37 Glucose Oral Gel 15 Gm Of Glucse In 37.5 Gm Tube PO PRN PRN Hypoglycemia Protocol Morphine Sulfate 30 mg in 30 mls @ 1 mls/hr 04/09/24 17:30 04/13/24 13:25 Morphine Sulfate Ready Mix Truck Driver IV CONT 1 mg/hr PRN PRN 1 mls/hr [employer] Management Administration Protocol 1 MG/HR Dextrose 1,000 mls @ 100 mls/hr 04/09/24 18:37 Dextrose 5% 1,000 Ml IVPB PRN PRN Hypoglycemia Protocol Dextrose 1,000 mls @ 50 mls/hr 04/11/24 11:47 Dextrose 10% IV CONT .Q20H PRN if PN is interrupted Multivitamins 1.25 ml/ 1,002.5 mls @ 40 mls/hr 04/11/24 14:00 04/13/24 14:49 Multivitamins 1.25 ml/ Amino IV CONT 40 mls/hr Acids/Electrolytes/Dextrose .Q24H JULIANO Administration Protocol Fat Emulsion Intravenous 250 mls @ 20.833 mls/hr 04/11/24 14:00 04/13/24 14:50 Lipids 20% IVPB 20 mls/hr Q24H JULIANO Administration Ibuprofen 800 mg in 200 mls @ 400 mls/hr 04/12/24 10:32 04/13/24 05:46 Caldolor 800 Mg/200 Ml IVPB Infused Q6H PRN Infusion Moderate Pain (4-6) Insulin Aspart 2 - 5 units 04/10/24 00:00 04/13/24 12:22 Insulin Aspart (*Bkc) 100 Units/Ml SUB-Q Not Given Q6HR [facility] Protocol Lidocaine 1 patch 04/08/24 19:02 04/11/24 08:47 Lidocaine 5% Patch TRANSDERM 1 patch Q24H PRN Administration back pain Naloxone HCl 0.1 mg 04/09/24 21:04 Naloxone Hcl 0.4 Mg/Ml Vial IV PUSH Q5MIN PRN Opioid Reversal Ondansetron HCl 4 mg 04/08/24 13:45 04/09/24 15:29 Ondansetron Inj 4 Mg/2 Ml Vial IV PUSH 4 mg Q6H PRN Administration Nausea And Vomiting Pantoprazole Sodium 40 mg 04/10/24 09:00 04/13/24 08:33 Pantoprazole Sodium Iv 40 Mg Vial IV PUSH 40 mg QAM JULIANO Administration Potassium Chloride 40 meq 04/13/24 09:30 04/13/24 10:21 Potassium Chloride 20 Meq Packet (For Liquid) PO 40 meq BID JULIANO Administration Sertraline HCl 50 mg 04/09/24 09:00 04/13/24 08:33 Sertraline Hcl 50 Mg Tablet PO Not Given DAILY JULIANO Sodium Chloride 20 ml 04/11/24 14:26 Central Line Flush IV PUSH PRN PRN after blood draws Sodium Chloride 10 ml 04/11/24 14:26 04/12/24 20:24 Central Line Flush IV PUSH 10 ml PRN PRN Administration with TPN bag changes Sodium Chloride 10 ml 04/11/24 22:00 04/13/24 14:51 Central Line Flush IV PUSH 10 ml Q8HR JULIANO Administration Radiology Results: ITS Impressions Chest X-Ray 04/08/24 09:40 IMPRESSION: No focal infiltrate or effusion. MRCP 04/09/24 12:03 IMPRESSION: 1. Multiple tiny gallstones in the dependent aspect of the normal gallbladder. 2. Diffuse acute interstitial pancreatitis with prominent nonloculated peripancreatic fluid tracking into the intra and retroperitoneal soft tissue tissues. 3. No intra or extrahepatic biliary ductal dilation or evident choledocholithiasis. 4. Increased signal in the dependent lower lobes which could represent atelectas is or pneumonia. ADDENDUM: 04/09/24 1301 CORRECTION: Incorrect contrast agent is noted in the technique section. The study was performed without and with 16 mL ProHance intravenous contrast. Pelvis Ultrasound 04/09/24 13:37 IMPRESSION: 1. Unremarkable pelvic ultrasound. Chest/Abdomen/Pelvis CTA 04/11/24 12:59 IMPRESSION: 1. No evident pulmonary embolism. Sensitivity mildly decreased in the segmental and more prominently in the subsegmental pulmonary arteries due to is suboptimal opacification of the pulmonary arteries as well as small amount of respiratory a nd streak artifact. 2. Small left pleural effusion with partial collapse of the left lower lobe and additional atelectasis in the right lower lobe. 3. Interval progression of nonloculated peripancreatic fluid and extensive stranding consistent with acute interstitial pancreatitis. 4. Small amount of ascites in the abdomen and pelvis with increased density of the fluid in the dependent cul-de-sac suggesting complex/exudative ascites which could be seen with small amount of hemoperitoneum or peritonitis. Labs Labs: Laboratory Results - last 24 hr 04/10/24 04/10/24 04/12/24 06:17 06:17 18:46 WBC RBC Hgb Hct MCV MCH MCHC RDW Plt Count MPV Immature Gran % (Auto) Neut % (Auto) Lymph % (Auto) Brooke % (Auto) Eos % (Auto) Baso % (Auto) Lymph # (Auto) Brooke # (Auto) Eos # (Auto) Baso # (Auto) Abs Immat Gran (auto) Absolute Neuts (auto) Absolute Nucleated RBC Nucleated RBC % Thrombin Time 17 LA PTT Screen 106 H dRVVT Screen 49 H dRVVT Confirm Interp Negative Hexagonal Phase Confirm Positive A Lupus Anticoag Interp See note Factor VIII Activity 278 H von Willebrand Antigen 216 209 Ristocetin Cofac Assay 189 Sodium Potassium Chloride Carbon Dioxide Anion Gap BUN Creatinine Estim Creat Clear Calc Estimated GFR Glucose POC Capillary Glucose 190 H Calcium Phosphorus Magnesium Total Bilirubin AST ALT Alkaline Phosphatase Total Protein Albumin Lipase Anti-Cardiolipin IgG Ab <2.0 Anti-Cardiolipin IgA Ab <2.0 Anti-Cardiolipin IgM Ab 10.0 04/12/24 04/13/24 04/13/24 23:16 04:40 06:43 WBC 11.7 H RBC 3.41 L Hgb 8.7 L Hct 27.9 L MCV 81.8 MCH 25.5 L MCHC 31.2 L RDW 18.1 H Plt Count 207 MPV 9.9 Immature Gran % (Auto) 2.3 H Neut % (Auto) 84.7 H Lymph % (Auto) 7.2 L Brooke % (Auto) 4.7 Eos % (Auto) 0.8 Baso % (Auto) 0.3 Lymph # (Auto) 0.84 L Brooke # (Auto) 0.6 Eos # (Auto) 0.1 Baso # (Auto) 0.0 Abs Immat Gran (auto) 0.27 H Absolute Neuts (auto) 10.0 H Absolute Nucleated RBC 0.000 Nucleated RBC % 0.0 Thrombin Time LA PTT Screen dRVVT Screen dRVVT Confirm Interp Hexagonal Phase Confirm Lupus Anticoag Interp Factor VIII Activity von Willebrand Antigen Ristocetin Cofac Assay Sodium 136 L Potassium 3.0 L Chloride 103 Carbon Dioxide 27 Anion Gap 6 BUN 4 L Creatinine 0.34 L Estim Creat Clear Calc 205 Estimated GFR > 60 Glucose 149 H POC Capillary Glucose 98 150 H Calcium 7.9 L Phosphorus 3.6 Magnesium 2.0 Total Bilirubin 1.1 AST 16 ALT 46 H Alkaline Phosphatase 148 H Total Protein 6.0 L Albumin 2.8 L Lipase 242 Anti-Cardiolipin IgG Ab Anti-Cardiolipin IgA Ab Anti-Cardiolipin IgM Ab 04/13/24 12:01 WBC RBC Hgb Hct MCV MCH MCHC RDW Plt Count MPV Immature Gran % (Auto) Neut % (Auto) Lymph % (Auto) Brooke % (Auto) Eos % (Auto) Baso % (Auto) Lymph # (Auto) Brooke # (Auto) Eos # (Auto) Baso # (Auto) Abs Immat Gran (auto) Absolute Neuts (auto) Absolute Nucleated RBC Nucleated RBC % Thrombin Time LA PTT Screen dRVVT Screen dRVVT Confirm Interp Hexagonal Phase Confirm Lupus Anticoag Interp Factor VIII Activity von Willebrand Antigen Ristocetin Cofac Assay Sodium Potassium Chloride Carbon Dioxide Anion Gap BUN Creatinine Estim Creat Clear Calc Estimated GFR Glucose POC Capillary Glucose 127 H Calcium Phosphorus Magnesium Total Bilirubin AST ALT Alkaline Phosphatase Total Protein Albumin Lipase Anti-Cardiolipin IgG Ab Anti-Cardiolipin IgA Ab Anti-Cardiolipin IgM Ab
[2024-04-13 17:56] LABS: Glucose Point of Care 137 mg/dl (65-105)
[2024-04-14] VITALS (20 sets, daily range): BP systolic 121–133; BP diastolic 70–79; PULSE 104–132; RESP 16–24; TEMP 36.1–37.2; O2SAT 93–98
[2024-04-14 00:11] LABS: Glucose Point of Care 133 mg/dl (65-105)
[2024-04-14] MEDS: MORPHINE SULFATE PCA (*CRX) 30 MG/30 ML SYR IV CONT ×2 (01:59→15:03)
[2024-04-14] MEDS: CENTRAL LINE FLUSH 10 ML IV PUSH ×3 (05:45→21:03)
[2024-04-14] MEDS: CENTRAL LINE FLUSH 20 ML IV PUSH (05:45)
[2024-04-14 05:53] LABS: Glucose Point of Care 131 mg/dl (65-105)
[2024-04-14 05:57] LABS: Basophils Absolute Auto 0.1 K/mm3 (0.0-0.1); Basophils Percent Auto 0.4 % (0.2-1.2); Eosinophils Absolute Auto 0.1 K/mm3 (0-0.3); Eosinophils Percent Auto 0.8 % (0-4.4); Hematocrit 28.4 % (37.0-47.0); Immature Granulocyte Absolute 0.81 K/mm3 (0.00-0.031); Immature Granulocyte Percent A 5.8 % (0-0.5); Lymphocytes Absolute Auto 1.21 K/mm3 (0.9-3.2); Lymphocytes Percent Auto 8.6 % (18.3-44.2); Mean Corpuscular HGB Conc 31.7 g/dl (32-36); Mean Corpuscular Hemoglobin 25.9 pg (26-34); Mean Corpuscular Volume 81.6 fl (80-100); Mean Platelet Volume 9.9 fl (7.4-10.4); Monocytes Absolute Auto 0.6 K/mm3 (0.1-0.6); Monocytes Percent Auto 4.4 % (2.6-8.5); Neutrophils Absolute Auto 11.2 K/mm3 (1.3-6.7); Nucleated Red Blood Cells Perc 0.4 % (0.0-0.2); Platelet Count Result 243 k/mm3 (150-375); Red Blood Count 3.48 M/mm3 (4.2-5.4); Red Cell Distribution Width 18.2 % (11.5-14.5); White Blood Count 14.1 K/mm3 (4.5-10.0)
[2024-04-14 06:11] LABS: Alanine Aminotransferase 40 U/L (6-35); Alkaline Phosphatase 159 U/L (38-126); Anion Gap 10 mmol/L (4-12); Aspartate Amino Transferase 19 U/L (14-36); Bilirubin,Total 1.1 mg/dL (0.2-1.3); Blood Urea Nitrogen 4 mg/dL (7-17); Calcium 8.4 mg/dL (8.4-10.2); Carbon Dioxide 25 mmol/L (22-30); Chloride 99 mmol/L (98-107); Estimated CRCL calculation 200 ml/min; Estimated Glomerular Filt Rate > 60; Glucose 136 mg/dL (65-110); Magnesium 2.1 mg/dL (1.6-2.3); Potassium 3.9 mmol/L (3.4-5.0); Sodium 134 mmol/L (137-145)
--- NOTE | 2024-04-14 06:49 | PC.NURSE ---
[employer] pump total cleared at 0548. Pump total not cleared on previous shift. [employer] pump total volume received from this shift and previous shift, was 71.8 mg. Continuous rate remains at 1mg/hr and bolus rate remains at 2mg with a lockout of 10 min.
--- NOTE | 2024-04-14 07:50 | PM.IMPN ---
Progress Note: A&P Assessment and Plan (1) Anxiety and depression: Code(s): F41.9 - Anxiety disorder, unspecified; F32.A - Depression, unspecified Status: Acute (2) Depression: Code(s): F32.A - Depression, unspecified Status: Acute (3) Acute pancreatitis: Qualifiers: Acute pancreatitis complication: unspecified Pancreatitis type: unspecified pancreatitis type Qualified Code(s): K85.90 - Acute pancreatitis without necrosis or infection, unspecified Code(s): K85.90 - Acute pancreatitis without necrosis or infection, unspecified Status: Acute (4) Cholelithiasis: Qualifiers: Biliary obstruction: with biliary obstruction Cholecystitis presence: without cholecystitis Cholelithiasis location: gallbladder Qualified Code(s): K80.21 - Calculus of gallbladder without cholecystitis with obstruction Code(s): K80.20 - Calculus of gallbladder without cholecystitis without obstruction Status: Chronic Plan Gallstone pancreatitis: Code(s): K85.10 - Biliary acute pancreatitis without necrosis or infection Status: Acute Assessment and Plan: Patient presents with abdominal pain and found to have lipase >40K. CTA chest/abdomen/pelvis shows acute interstitial pancreatitis with prominent nonloculated acute peripancreatic fluid collections and stranding, tiny GS versus porcelain gallbladder with mural calcification along the dependent wall of the otherwise normal GB, no evident choledocholithiasis or intra or extra hepatic biliary ductal dilation and mild dependent atelectasis in the lower lobes. No pulmonary embolism or other acute cardiopulmonary disease. MRCP showing similar findings from the CT scan and no evidence of choledocholithiasis. Patient with GS Pancreatitis. General surgery and GI consulted and appreciate their input. TG 198. Lipase trending downward at 300. TB better at 1.1 and other liver tests normalize Repeat CT A/P (04/11) showing interval progression of non loculated peripancreatic fluid and extensive stranding consistent with acute interstitial pancreatitis Diet started. Continue TPN. Supportive care. Follow LFTs and lipase levels. Cholelithiasis: Qualifiers: Biliary obstruction: with biliary obstruction Cholecystitis presence: without cholecystitis Cholelithiasis location: gallbladder Qualified Code(s): K80.21 - Calculus of gallbladder without cholecystitis with obstruction Code(s): K80.20 - Calculus of gallbladder without cholecystitis without obstruction Status: Chronic Assessment and Plan: As above Leukocytosis Patient is afebrile, but leukocytosis trending up cxr:a left lower lobe infiltrate and likely adjacent effusion. CT abdomen pelvis shows no abscess necrosis or hemorrhagic transformation, small amount reactive ascites in the pelvis, small left pleural effusion with partial collapse of left lower lobe Possible reaction to pancreatitis But patient is on TPN, monitor sign of infection closely Hold antibiotics now (3) Transaminitis: Code(s): R74.01 - Elevation of levels of liver transaminase levels Status: Acute Assessment and Plan: As above. (4) Elevated partial thromboplastin time (PTT): Code(s): R79.1 - Abnormal coagulation profile Status: Chronic Assessment and Plan: PTT 197, previously 159 on 06/27/2023. Patient has previously been referred to Hematology but has not follow-up with this. Her mother and maternal grandmother have some form of clotting disorder and are both She has bleeding gums but no miscarriages or early bruising. 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 Oncology/hematology consulted and appreciate their input (5) Abnormal uterine bleeding: Code(s): N93.9 - Abnormal uterine and vaginal bleeding, unspecified Status: Acute Assessment and Plan: Patient reports vaginal bleeding since delivery in February. Hgb 13.2 on admisison. Pelvic ultrasound was unremarkable. Could be related to her elevated PTT. HH has trended down to 8.4 today but could be related to fluids. social services coordinator consulted and appreciate their input (6) Hypokalemia: Code(s): E87.6 - Hypokalemia Status: Acute Assessment and Plan: Repeated, potassium still low. Mag 2.2 Replace potassium Replace Phos as well. Subjective Date/time seen: 04/14/24 07:50 Interval history: Patient is afebrile, has tachycardia leukocytosis is trending. Patient still has abdomen pain, poor appetite, patient is on TPN and liquid diet. 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 CT abdomen pelvis shows no abscess necrosis or hemorrhagic transformation, small amount reactive ascites in the pelvis, small left pleural effusion with partial collapse of left lower lobe Exam Narrative: GENERAL: Pleasant, in no acute distress. Well-nourished. - EYES: EOMI. Anicteric. - HENT: Moist mucous membranes. - LUNGS: Clear to auscultation bilaterally, no wheezing, rhonchi, or rales. - CARDIOVASCULAR: Regular rate and rhythm. No murmur. No JVD. - ABDOMEN: Soft, diffuse tender and some distended. No palpable masses. - EXTREMITIES: No edema. Peripheral pulses 2+. Non-tender. - NEUROLOGIC: No focal neurological deficits. CN II-XII grossly intact. - PSYCHIATRIC: Awake, Alert and oriented x 3. Appropriate mood and affect. - SKIN: No rashes or lesions. Warm. - LYMPH: No cervical lymphadenopathy. Objective Data Vital Signs Vital Signs: Vital Signs - 24 hr 04/13/24 08:00 04/13/24 08:04 04/13/24 08:33 Temperature 97.8 F Pulse Rate 104 H 102 H Respiratory Rate 18 20 Blood Pressure 130/80 Pulse Oximetry 94 95 Oxygen Delivery Fraction of Inspired Oxygen 04/13/24 08:33 04/13/24 08:33 04/13/24 10:00 Temperature Pulse Rate 100 100 Respiratory Rate 20 20 Blood Pressure Pulse Oximetry 95 96 Oxygen Delivery Room Air Fraction of Inspired Oxygen 04/13/24 10:08 04/13/24 12:01 04/13/24 12:01 Temperature Pulse Rate 110 H 117 H Respiratory Rate 23 H 20 Blood Pressure Pulse Oximetry 95 96 Oxygen Delivery Room Air Fraction of Inspired Oxygen 21 04/13/24 13:25 04/13/24 14:00 04/13/24 14:00 Temperature 97.7 F Pulse Rate 124 H Respiratory Rate 24 H 18 18 Blood Pressure 142/75 H Pulse Oximetry 96 98 96 Oxygen Delivery Fraction of Inspired Oxygen 04/13/24 16:04 04/13/24 16:04 04/13/24 18:00 Temperature Pulse Rate 127 H Respiratory Rate 18 18 Blood Pressure Pulse Oximetry 96 96 Oxygen Delivery Fraction of Inspired Oxygen 04/13/24 20:00 04/13/24 20:00 04/13/24 20:00 Temperature 98.5 F Pulse Rate 122 H 121 H Respiratory Rate 18 20 Blood Pressure 133/77 Pulse Oximetry 97 96 Oxygen Delivery Fraction of Inspired Oxygen 04/13/24 20:51 04/13/24 21:45 04/13/24 22:00 Temperature Pulse Rate 123 H Respiratory Rate 24 H 22 H Blood Pressure Pulse Oximetry 95 94 Oxygen Delivery Room Air Room Air Fraction of Inspired Oxygen 21 04/13/24 22:00 04/13/24 23:47 04/14/24 00:00 Temperature 97.8 F 99.1 F Pulse Rate 122 H 118 H Respiratory Rate 18 18 20 Blood Pressure 139/76 136/77 Pulse Oximetry 97 96 93 Oxygen Delivery Fraction of Inspired Oxygen 04/14/24 00:00 04/14/24 02:00 04/14/24 04:00 Temperature Pulse Rate 114 H 114 H Respiratory Rate 20 Blood Pressure Pulse Oximetry 93 Oxygen Delivery Fraction of Inspired Oxygen 04/14/24 04:00 04/14/24 04:00 04/14/24 05:58 Temperature 98.6 F 98.9 F Pulse Rate 122 H 120 H Respiratory Rate 18 18 18 Blood Pressure 129/79 133/70 Pulse Oximetry 94 97 96 Oxygen Delivery Fraction of Inspired Oxygen 04/14/24 06:00 Temperature Pulse Rate Respiratory Rate 20 Blood Pressure Pulse Oximetry 93 Oxygen Delivery Fraction of Inspired Oxygen Intake/Output Intake/Output: Intake & Output 04/11/24 04/12/24 04/13/24 04/14/24 23:59 23:59 23:59 23:59 Intake Total 2739.2 4036.0 2429.3 400 Balance 2739.2 4036.0 2429.3 400 Meds/Results Medications: Active Medications Generic Name Dose Route Start Last Admin Trade Name Freq PRN Reason Stop Dose Admin Acetaminophen 650 mg 04/08/24 13:45 Acetaminophen 325 Mg Tablet PO Q4H PRN Mild Pain (1-3) or Fever Dextrose 12.5 gm 04/09/24 18:37 Dextrose 50% 25 Gm/50 Ml Syringe IV PUSH PRN PRN Hypoglycemia Protocol Glucagon 1 mg 04/09/24 18:37 Glucagon For Inj 1 Mg Vial IM PRN PRN Hypoglycemia Protocol Glucose 15 gm 04/09/24 18:37 Glucose Oral Gel 15 Gm Of Glucse In 37.5 Gm Tube PO PRN PRN Hypoglycemia Protocol Morphine Sulfate 30 mg in 30 mls @ 1 mls/hr 04/09/24 17:30 04/14/24 01:59 Morphine Sulfate Fluid Power Mechanic IV CONT 1 mg/hr PRN PRN 1 mls/hr [employer] SETTER Management Administration Protocol 1 MG/HR Dextrose 1,000 mls @ 100 mls/hr 04/09/24 18:37 Dextrose 5% 1,000 Ml IVPB PRN PRN Hypoglycemia Protocol Dextrose 1,000 mls @ 50 mls/hr 04/11/24 11:47 Dextrose 10% IV CONT .Q20H PRN if PN is interrupted Multivitamins 1.25 ml/ 1,002.5 mls @ 40 mls/hr 04/11/24 14:00 04/13/24 14:49 Multivitamins 1.25 ml/ Amino IV CONT 40 mls/hr Acids/Electrolytes/Dextrose .Q24H JULIANO Administration Protocol Fat Emulsion Intravenous 250 mls @ 20.833 mls/hr 04/11/24 14:00 04/14/24 03:20 Lipids 20% IVPB Infused Q24H JULIANO Infusion Ibuprofen 800 mg in 200 mls @ 400 mls/hr 04/12/24 10:32 04/13/24 05:46 Caldolor 800 Mg/200 Ml IVPB Infused Q6H PRN Infusion Moderate Pain (4-6) Insulin Aspart 2 - 5 units 04/10/24 00:00 04/14/24 05:45 Insulin Aspart (*Bkc) 100 Units/Ml SUB-Q Not Given Q6HR [facility] Protocol Lidocaine 1 patch 04/08/24 19:02 04/11/24 08:47 Lidocaine 5% Patch TRANSDERM 1 patch Q24H PRN Administration back pain Naloxone HCl 0.1 mg 04/09/24 21:04 Naloxone Hcl 0.4 Mg/Ml Vial IV PUSH Q5MIN PRN Opioid Reversal Ondansetron HCl 4 mg 04/08/24 13:45 04/09/24 15:29 Ondansetron Inj 4 Mg/2 Ml Vial IV PUSH 4 mg Q6H PRN Administration Nausea And Vomiting Pantoprazole Sodium 40 mg 04/10/24 09:00 04/13/24 08:33 Pantoprazole Sodium Iv 40 Mg Vial IV PUSH 40 mg QAM JULIANO Administration Potassium Chloride 40 meq 04/13/24 09:30 04/13/24 17:35 Potassium Chloride 20 Meq Packet (For Liquid) PO 40 meq BID JULIANO Administration Sertraline HCl 50 mg 04/09/24 09:00 04/13/24 08:33 Sertraline Hcl 50 Mg Tablet PO Not Given DAILY JULIANO Sodium Chloride 20 ml 04/11/24 14:26 04/14/24 05:45 Central Line Flush IV PUSH 20 ml PRN PRN Administration after blood draws Sodium Chloride 10 ml 04/11/24 14:26 04/12/24 20:24 Central Line Flush IV PUSH 10 ml PRN PRN Administration with TPN bag changes Sodium Chloride 10 ml 04/11/24 22:00 04/14/24 05:45 Central Line Flush IV PUSH 10 ml Q8HR JULIANO Administration Radiology Results: ITS Impressions Chest X-Ray 04/08/24 09:40 IMPRESSION: No focal infiltrate or effusion. MRCP 04/09/24 12:03 IMPRESSION: 1. Multiple tiny gallstones in the dependent aspect of the normal gallbladder. 2. Diffuse acute interstitial pancreatitis with prominent nonloculated peripancreatic fluid tracking into the intra and retroperitoneal soft tissue tissues. 3. No intra or extrahepatic biliary ductal dilation or evident choledocholithiasis. 4. Increased signal in the dependent lower lobes which could represent atelectasis or pneumonia. ADDENDUM: 04/09/24 1301 CORRECTION: Incorrect contrast agent is noted in the technique section. The study was performed without and with 16 mL ProHance intravenous contrast. Pelvis Ultrasound 04/09/24 13:37 IMPRESSION: 1. Unremarkable pelvic ultrasound. Chest/Abdomen/Pelvis CTA 04/11/24 12:59 IMPRESSION: 1. No evident pulmonary embolism. Sensitivity mildly decreased in the segmental and more prominently in the subsegmental pulmonary arteries due to is suboptimal opacification of the pulmonary arteries as well as small amount of respiratory and streak artifact. 2. Small left pleural effusion with partial collapse of the left lower lobe and additional atelectasis in the right lower lobe. 3. Interval progression of nonloculated peripancreatic fluid and extensive stranding consistent with acute interstitial pancreatitis. 4. Small amount of ascites in the abdomen and pelvis with increased density of the fluid in the dependent cul-de-sac suggesting complex/exudative ascites which could be seen with small amount of hemoperitoneum or peritonitis. Labs Labs: Laboratory Results - last 24 hr 04/10/24 04/10/24 04/13/24 06:17 06:17 12:01 WBC RBC Hgb Hct MCV MCH MCHC RDW Plt Count MPV Immature Gran % (Auto) Neut % (Auto) Lymph % (Auto) [place] % (Auto) Eos % (Auto) Baso % (Auto) Lymph # (Auto) [place] # (Auto) Eos # (Auto) Baso # (Auto) Abs Immat Gran (auto) Absolute Neuts (auto) Absolute Nucleated RBC Nucleated RBC % Factor VIII Activity 278 H von Willebrand Antigen 216 209 Ristocetin Cofac Assay 189 Sodium Potassium Chloride Carbon Dioxide Anion Gap BUN Creatinine Estim Creat Clear Calc Estimated GFR Glucose POC Capillary Glucose 127 H Calcium Phosphorus Magnesium Total Bilirubin AST ALT Alkaline Phosphatase Total Protein Albumin 04/13/24 04/13/24 04/14/24 17:53 23:46 05:41 WBC 14.1 H RBC 3.48 L Hgb 9.0 L Hct 28.4 L MCV 81.6 MCH 25.9 L MCHC 31.7 L RDW 18.2 H Plt Count 243 MPV 9.9 Immature Gran % (Auto) 5.8 H Neut % (Auto) 80.0 H Lymph % (Auto) 8.6 L [place] % (Auto) 4.4 Eos % (Auto) 0.8 Baso % (Auto) 0.4 Lymph # (Auto) 1.21 [place] # (Auto) 0.6 Eos # (Auto) 0.1 Baso # (Auto) 0.1 Abs Immat Gran (auto) 0.81 H Absolute Neuts (auto) 11.2 H Absolute Nucleated RBC 0.050 H Nucleated RBC % 0.4 H Factor VIII Activity von Willebrand Antigen Ristocetin Cofac Assay Sodium 134 L Potassium 3.9 Chloride 99 Carbon Dioxide 25 Anion Gap 10 BUN 4 L Creatinine 0.35 L Estim Creat Clear Calc 200 Estimated GFR > 60 Glucose 136 H POC Capillary Glucose 137 H 133 H Calcium 8.4 Phosphorus 4.0 Magnesium 2.1 Total Bilirubin 1.1 AST 19 ALT 40 H Alkaline Phosphatase 159 H Total Protein 6.0 L Albumin 3.0 L 04/14/24 05:45 WBC RBC Hgb Hct MCV MCH MCHC RDW Plt Count MPV Immature Gran % (Auto) Neut % (Auto) Lymph % (Auto) [place] % (Auto) Eos % (Auto) Baso % (Auto) Lymph # (Auto) [place] # (Auto) Eos # (Auto) Baso # (Auto) Abs Immat Gran (auto) Absolute Neuts (auto) Absolute Nucleated RBC Nucleated RBC % Factor VIII Activity von Willebrand Antigen Ristocetin Cofac Assay Sodium Potassium Chloride Carbon Dioxide Anion Gap BUN Creatinine Estim Creat Clear Calc Estimated GFR Glucose POC Capillary Glucose 131 H Calcium Phosphorus Magnesium Total Bilirubin AST ALT Alkaline Phosphatase Total Protein Albumin
[2024-04-14] MEDS: PANTOPRAZOLE SODIUM IV 40 MG VIAL IV PUSH (08:06)
[2024-04-14] MEDS: POTASSIUM CHLORIDE 20 MEQ PACKET (FOR LIQUID) 40 MEQ PO ×2 (08:06→17:05)
[2024-04-14 08:29] LABS: Lipase 245 U/L (23-300)
[2024-04-14 09:16] LABS: Triglycerides 123 mg/dL (<150)
[2024-04-14 12:07] LABS: Glucose Point of Care 160 mg/dl (65-105)
--- NOTE | 2024-04-14 12:43 | P.PNGI_ITS ---
Progress Note: A&P Assessment and Plan (1) Gallstone pancreatitis: Code(s): K85.10 - Biliary acute pancreatitis without necrosis or infection Status: Acute Assessment and Plan: another CT scan worsening nonloculated peripancreatic fluid and extensive stranding consistent with acute interstitial pancreatitis but no pseudocyst or necrosis. 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 factor 8 vs von Willebrand (5) Nausea: Code(s): R11.0 - Nausea Status: Acute Subjective Date/time seen: 04/14/24 12:43 Interval history: still FRONT OFFICE JAVA DEVELOPER but pain has improved she is quite thirsty and would like to drink if possible no change in vaginal bleeding Review of Systems Review of Systems: All systems reviewed & are unremarkable except as noted in HPI and below Exam Const: General: no acute distress Orientation/consciousness: patient oriented x3 HENMT: Face/Nose/Sinus: Normal nares present Eyes: Sclera: sclerae normal Neck: Neck: supple Resp: Effort & Inspection: normal respiratory effort Cardio: Rate: regular rate GI: Inspection: non-distended GI Palp: Yes Soft to palpation, Yes Tenderness to palpation present (GI) (diffusely tender, worse in the upper abdomen- less painful ), No Guarding due to palpation present (GI) and No Rebound tenderness present Skin: General skin exam: no rashes or lesions noted Neuro: General: moves all extremities Extrem: General: no pedal edema and no calf tenderness Psych: Mental Status: mental status grossly normal Objective Data Vital Signs Vital Signs: Vital Signs - 24 hr 04/13/24 13:25 04/13/24 14:00 04/13/24 14:00 Temperature 97.7 F Pulse Rate 124 H Respiratory Rate 24 H 18 18 Blood Pressure 142/75 H Pulse Oximetry 96 98 96 Oxygen Delivery Fraction of Inspired Oxygen 04/13/24 16:04 04/13/24 16:04 04/13/24 18:00 Temperature Pulse Rate 127 H Respiratory Rate 18 18 Blood Pressure Pulse Oximetry 96 96 Oxygen Delivery Fraction of Inspired Oxygen 04/13/24 20:00 04/13/24 20:00 04/13/24 20:00 Temperature 98.5 F Pulse Rate 122 H 121 H Respiratory Rate 18 20 Blood Pressure 133/77 Pulse Oximetry 97 96 Oxygen Delivery Fraction of Inspired Oxygen 04/13/24 20:51 04/13/24 21:45 04/13/24 22:00 Temperature Pulse Rate 123 H Respiratory Rate 24 H 22 H Blood Pressure Pulse Oximetry 95 94 Oxygen Delivery Room Air Room Air Fraction of Inspired Oxygen 21 04/13/24 22:00 04/13/24 23:47 04/14/24 00:00 Temperature 97.8 F 99.1 F Pulse Rate 122 H 118 H Respiratory Rate 18 18 20 Blood Pressure 139/76 136/77 Pulse Oximetry 97 96 93 Oxygen Delivery Fraction of Inspired Oxygen 04/14/24 00:00 04/14/24 02:00 04/14/24 04:00 Temperature Pulse Rate 114 H 114 H Respiratory Rate 20 Blood Pressure Pulse Oximetry 93 Oxygen Delivery Fraction of Inspired Oxygen 04/14/24 04:00 04/14/24 04:00 04/14/24 05:58 Temperature 98.6 F 98.9 F Pulse Rate 122 H 120 H Respiratory Rate 18 18 18 Blood Pressure 129/79 133/70 Pulse Oximetry 94 97 96 Oxygen Delivery Fraction of Inspired Oxygen 04/14/24 06:00 04/14/24 08:04 04/14/24 08:10 Temperature Pulse Rate 121 H Respiratory Rate 20 20 Blood Pressure Pulse Oximetry 93 93 Oxygen Delivery Fraction of Inspired Oxygen 04/14/24 08:10 04/14/24 08:48 04/14/24 10:00 Temperature Pulse Rate 104 H Respiratory Rate 20 20 Blood Pressure Pulse Oximetry 93 95 96 Oxygen Delivery Room Air Room Air Fraction of Inspired Oxygen 21 04/14/24 12:00 04/14/24 12:01 04/14/24 12:01 Temperature 97.8 F Pulse Rate 120 H 124 H Respiratory Rate 18 20 Blood Pressure 121/71 Pulse Oximetry 97 94 Oxygen Delivery Fraction of Inspired Oxygen Intake/Output Intake/Output: Intake & Output 04/11/24 04/12/24 04/13/24 04/14/24 23:59 23:59 23:59 23:59 Intake Total 2739.2 4036.0 2429.3 1091.3 Balance 2739.2 4036.0 2429.3 1091.3 Meds/Results Medications: Active Medications Generic Name Dose Route Start Last Admin Trade Name Freq PRN Reason Stop Dose Admin Acetaminophen 650 mg 04/08/24 13:45 Acetaminophen 325 Mg Tablet PO Q4H PRN Mild Pain (1-3) or Fever Dextrose 12.5 gm 04/09/24 18:37 Dextrose 50% 25 Gm/50 Ml Syringe IV PUSH PRN PRN Hypoglycemia Protocol Glucagon 1 mg 04/09/24 18:37 Glucagon For Inj 1 Mg Vial IM PRN PRN Hypoglycemia Protocol Glucose 15 gm 04/09/24 18:37 Glucose Oral Gel 15 Gm Of Glucse In 37.5 Gm Tube PO PRN PRN Hypoglycemia Protocol Morphine Sulfate 30 mg in 30 mls @ 1 mls/hr 04/09/24 17:30 04/14/24 01:59 Morphine Sulfate Freelance Copywriter IV CONT 1 mg/hr PRN PRN 1 mls/hr FRONT OFFICE JAVA DEVELOPER Management Administration Protocol 1 MG/HR Dextrose 1,000 mls @ 100 mls/hr 04/09/24 18:37 Dextrose 5% 1,000 Ml IVPB PRN PRN Hypoglycemia Protocol Dextrose 1,000 mls @ 50 mls/hr 04/11/24 11:47 Dextrose 10% IV CONT .Q20H PRN if PN is interrupted Multivitamins 1.25 ml/ 1,002.5 mls @ 60 mls/hr 04/11/24 14:00 04/14/24 08:59 Multivitamins 1.25 ml/ Amino IV CONT 60 mls/hr Acids/Electrolytes/Dextrose .[id number] JULIANO Infusion Protocol Fat Emulsion Intravenous 250 mls @ 20.833 mls/hr 04/11/24 14:00 04/14/24 03:20 Lipids 20% IVPB Infused Q24H JULIANO Infusion Ibuprofen 800 mg in 200 mls @ 400 mls/hr 04/12/24 10:32 04/13/24 05:46 Caldolor 800 Mg/200 Ml IVPB Infused Q6H PRN Infusion Moderate Pain (4-6) Insulin Aspart 2 - 5 units 04/10/24 00:00 04/14/24 12:09 Insulin Aspart (*Bkc) 100 Units/Ml SUB-Q Not Given Q6HR [facility] Protocol Lidocaine 1 patch 04/08/24 19:02 04/11/24 08:47 Lidocaine 5% Patch TRANSDERM 1 patch Q24H PRN Administration back pain Naloxone HCl 0.1 mg 04/09/24 21:04 Naloxone Hcl 0.4 Mg/Ml Vial IV PUSH Q5MIN PRN Opioid Reversal Ondansetron HCl 4 mg 04/08/24 13:45 04/09/24 15:29 Ondansetron Inj 4 Mg/2 Ml Vial IV PUSH 4 mg Q6H PRN Administration Nausea And Vomiting Pantoprazole Sodium 40 mg 04/10/24 09:00 04/14/24 08:06 Pantoprazole Sodium Iv 40 Mg Vial IV PUSH 40 mg QAM JULIANO Administration Potassium Chloride 40 meq 04/13/24 09:30 04/14/24 08:06 Potassium Chloride 20 Meq Packet (For Liquid) PO 40 meq BID JULIANO Administration Sertraline HCl 50 mg 04/09/24 09:00 04/14/24 08:06 Sertraline Hcl 50 Mg Tablet PO Not Given DAILY JULIANO Sodium Chloride 20 ml 04/11/24 14:26 04/14/24 05:45 Central Line Flush IV PUSH 20 ml PRN PRN Administration after blood draws Sodium Chloride 10 ml 04/11/24 14:26 04/12/24 20:24 Central Line Flush IV PUSH 10 ml PRN PRN Administration with TPN bag changes Sodium Chloride 10 ml 04/11/24 22:00 04/14/24 05:45 Central Line Flush IV PUSH 10 ml Q8HR JULIANO Administration Radiology Results: ITS Impressions MRCP 04/09/24 12:03 IMPRESSION: 1. Multiple tiny gallstones in the dependent aspect of the normal gallbladder. 2. Diffuse acute interstitial pancreatitis with prominent nonloculated peripancreatic fluid tracking into the intra and retroperitoneal soft tissue tissues. 3. No intra or extrahepatic biliary ductal dilation or evident choledocholithiasis. 4. Increased signal in the dependent lower lobes which could represent atelectasis or pneumonia. ADDENDUM: 04/09/24 1301 CORRECTION: Incorrect contrast agent is noted in the technique section. The study was performed without and with 16 mL ProHance intravenous contrast. Pelvis Ultrasound 04/09/24 13:37 IMPRESSION: 1. Unremarkable pelvic ultrasound. Chest/Abdomen/Pelvis CTA 04/11/24 12:59 IMPRESSION: 1. No evident pulmonary embolism. Sensitivity mildly decreased in the segmental and more prominently in the subsegmental pulmonary arteries due to is suboptimal opacification of the pulmonary arteries as well as small amount of respiratory and streak artifact. 2. Small left pleural effusion with partial collapse of the left lower lobe and additional atelectasis in the right lower lobe. 3. Interval progression of nonloculated peripancreatic fluid and extensive stranding consistent with acute interstitial pancreatitis. 4. Small amount of ascites in the abdomen and pelvis with increased density of the fluid in the dependent cul-de-sac suggesting complex/exudative ascites which could be seen with small amount of hemoperitoneum or peritonitis. Chest X-Ray 04/14/24 08:29 IMPRESSION: Mild pulmonary vascular congestion with a left lower lobe infiltrate and likely adjacent effusion. Abdomen/Pelvis CT 04/14/24 08:35 IMPRESSION: 1. Continued progression in nonloculated peripancreatic fluid and stranding consistent with acute interstitial pancreatitis with no abscess, necrosis or hemorrhagic transformation. 2. Small amount of likely reactive ascites in the pelvis. 3. Unchanged small left pleural effusion with partial collapse left lower lobe. Labs Labs: Laboratory Results - last 24 hr 04/10/24 04/13/24 04/13/24 06:17 17:53 23:46 WBC RBC Hgb Hct MCV MCH MCHC RDW Plt Count MPV Immature Gran % (Auto) Neut % (Auto) Lymph % (Auto) [place] % (Auto) Eos % (Auto) Baso % (Auto) Lymph # (Auto) [place] # (Auto) Eos # (Auto) Baso # (Auto) Abs Immat Gran (auto) Absolute Neuts (auto) Absolute Nucleated RBC Nucleated RBC % APTT (Factor Assay) TNP von Willebrand Antigen 209 Sodium Potassium Chloride Carbon Dioxide Anion Gap BUN Creatinine Estim Creat Clear Calc Estimated GFR Glucose POC Capillary Glucose 137 H 133 H Calcium Phosphorus Magnesium Total Bilirubin AST ALT Alkaline Phosphatase Total Protein Albumin Triglycerides Lipase 04/14/24 04/14/24 04/14/24 05:41 05:45 08:57 WBC 14.1 H RBC 3.48 L Hgb 9.0 L Hct 28.4 L MCV 81.6 MCH 25.9 L MCHC 31.7 L RDW 18.2 H Plt Count 243 MPV 9.9 Immature Gran % (Auto) 5.8 H Neut % (Auto) 80.0 H Lymph % (Auto) 8.6 L [place] % (Auto) 4.4 Eos % (Auto) 0.8 Baso % (Auto) 0.4 Lymph # (Auto) 1.21 [place] # (Auto) 0.6 Eos # (Auto) 0.1 Baso # (Auto) 0.1 Abs Immat Gran (auto) 0.81 H Absolute Neuts (auto) 11.2 H Absolute Nucleated RBC 0.050 H Nucleated RBC % 0.4 H APTT (Factor Assay) von Willebrand Antigen Sodium 134 L Potassium 3.9 Chloride 99 Carbon Dioxide 25 Anion Gap 10 BUN 4 L Creatinine 0.35 L Estim Creat Clear Calc 200 Estimated GFR > 60 Glucose 136 H POC Capillary Glucose 131 H Calcium 8.4 Phosphorus 4.0 Magnesium 2.1 Total Bilirubin 1.1 AST 19 ALT 40 H Alkaline Phosphatase 159 H Total Protein 6.0 L Albumin 3.0 L Triglycerides 123 Lipase 245 04/14/24 12:03 WBC RBC Hgb Hct MCV MCH MCHC RDW Plt Count MPV Immature Gran % (Auto) Neut % (Auto) Lymph % (Auto) [place] % (Auto) Eos % (Auto) Baso % (Auto) Lymph # (Auto) [place] # (Auto) Eos # (Auto) Baso # (Auto) Abs Immat Gran (auto) Absolute Neuts (auto) Absolute Nucleated RBC Nucleated RBC % APTT (Factor Assay) von Willebrand Antigen Sodium Potassium Chloride Carbon Dioxide Anion Gap BUN Creatinine Estim Creat Clear Calc Estimated GFR Glucose POC Capillary Glucose 160 H Calcium Phosphorus Magnesium Total Bilirubin AST ALT Alkaline Phosphatase Total Protein Albumin Triglycerides Lipase
--- NOTE | 2024-04-14 12:51 | PM.PNGS ---
Progress Note: A&P Assessment and Plan (1) Acute pancreatitis: Qualifiers: Acute pancreatitis complication: unspecified Pancreatitis type: unspecified pancreatitis type Qualified Code(s): K85.90 - Acute pancreatitis without necrosis or infection, unspecified Code(s): K85.90 - Acute pancreatitis without necrosis or infection, unspecified Status: Acute Assessment and Plan: Abdominal pain and tenderness improved today. WBC count up to 14,000 with a left shift. Repeat CT scan of the abdomen/pelvis today showed some more peripancreatic fluid and stranding consistent with her severe acute pancreatitis, but no new findings of pseudocyst or abscess. Will decrease her SENIOR RESEARCH SCIENTIST bolus dose down to 1 mg and continue the basal rate. Will advance to full liquids. Leukocytosis does not appear to be related to a pancreatic pseudocyst or abscess. Although, she does have a left lower lobe infiltrate on her chest x-ray. Would recommend considering starting IV antibiotics for hospital-acquired pneumonia. This does not appear to be related to her pancreatitis. Repeat labs and exam again tomorrow. (2) Cholelithiasis: Qualifiers: Biliary obstruction: with biliary obstruction Cholecystitis presence: without cholecystitis Cholelithiasis location: gallbladder Qualified Code(s): K80.21 - Calculus of gallbladder without cholecystitis with obstruction Code(s): K80.20 - Calculus of gallbladder without cholecystitis without obstruction Status: Chronic Assessment and Plan: Definitely does have gallstones and will need eventual cholecystectomy, which would likely be done as an outpatient after her pancreatitis resolves. (3) Transaminitis: Code(s): R74.01 - Elevation of levels of liver transaminase levels Status: Acute Assessment and Plan: Bilirubin normalized, overall downward trend (4) Elevated partial thromboplastin time (PTT): Code(s): R79.1 - Abnormal coagulation profile Status: Chronic Plan I have discussed the patient's case and plan of care with Dr. Warner. Subjective Subjective Date/Time Seen: 04/14/24 12:51 Patient reports: no new complaints, feels better, pain is less, flatus, no bowel movement and afebrile Interval history: Patient feeling better today. Still having upper abdominal pain. No nausea or vomiting. No other complaints at this time. SHe is up in the chair and reports she is trying to get up and moving more today. Exam Const: General: comfortable and no acute distress GI: Inspection: non-distended GI Palp: Yes Soft to palpation, Yes Tenderness to palpation present (GI) (diffuse tenderness improved, still tenderness in upper abdomen), No Guarding due to palpation present (GI) and No Rebound tenderness present Auscultation: normal bowel sounds Objective Data Vital Signs Vital Signs: Vital Signs - 24 hr 04/13/24 13:25 04/13/24 14:00 04/13/24 14:00 Temperature 97.7 F Pulse Rate 124 H Respiratory Rate 24 H 18 18 Blood Pressure 142/75 H Pulse Oximetry 96 98 96 Oxygen Delivery Fraction of Inspired Oxygen 04/13/24 16:04 04/13/24 16:04 04/13/24 18:00 Temperature Pulse Rate 127 H Respiratory Rate 18 18 Blood Pressure Pulse Oximetry 96 96 Oxygen Delivery Fraction of Inspired Oxygen 04/13/24 20:00 04/13/24 20:00 04/13/24 20:00 Temperature 98.5 F Pulse Rate 122 H 121 H Respiratory Rate 18 20 Blood Pressure 133/77 Pulse Oximetry 97 96 Oxygen Delivery Fraction of Inspired Oxygen 04/13/24 20:51 04/13/24 21:45 04/13/24 22:00 Temperature Pulse Rate 123 H Respiratory Rate 24 H 22 H Blood Pressure Pulse Oximetry 95 94 Oxygen Delivery Room Air Room Air Fraction of Inspired Oxygen 21 04/13/24 22:00 04/13/24 23:47 04/14/24 00:00 Temperature 97.8 F 99.1 F Pulse Rate 122 H 118 H Respiratory Rate 18 18 20 Blood Pressure 139/76 136/77 Pulse Oximetry 97 96 93 Oxygen Delivery Fraction of Inspired Oxygen 04/14/24 00:00 04/14/24 02:00 04/14/24 04:00 Temperature Pulse Rate 114 H 114 H Respiratory Rate 20 Blood Pressure Pulse Oximetry 93 Oxygen Delivery Fraction of Inspired Oxygen 04/14/24 04:00 04/14/24 04:00 04/14/24 05:58 Temperature 98.6 F 98.9 F Pulse Rate 122 H 120 H Respiratory Rate 18 18 18 Blood Pressure 129/79 133/70 Pulse Oximetry 94 97 96 Oxygen Delivery Fraction of Inspired Oxygen 04/14/24 06:00 04/14/24 08:04 04/14/24 08:10 Temperature Pulse Rate 121 H Respiratory Rate 20 20 Blood Pressure Pulse Oximetry 93 93 Oxygen Delivery Fraction of Inspired Oxygen 04/14/24 08:10 04/14/24 08:48 04/14/24 10:00 Temperature Pulse Rate 104 H Respiratory Rate 20 20 Blood Pressure Pulse Oximetry 93 95 96 Oxygen Delivery Room Air Room Air Fraction of Inspired Oxygen 21 04/14/24 12:00 04/14/24 12:01 04/14/24 12:01 Temperature 97.8 F Pulse Rate 120 H 124 H Respiratory Rate 18 20 Blood Pressure 121/71 Pulse Oximetry 97 94 Oxygen Delivery Fraction of Inspired Oxygen Intake/Output Intake/Output: Intake & Output 04/11/24 04/12/24 04/13/24 04/14/24 23:59 23:59 23:59 23:59 Intake Total 2739.2 4036.0 2429.3 1091.3 Balance 2739.2 4036.0 2429.3 1091.3 Meds/Results Medications: Active Medications Generic Name Dose Route Start Last Admin Trade Name Freq PRN Reason Stop Dose Admin Acetaminophen 650 mg 04/08/24 13:45 Acetaminophen 325 Mg Tablet PO Q4H PRN Mild Pain (1-3) or Fever Dextrose 12.5 gm 04/09/24 18:37 Dextrose 50% 25 Gm/50 Ml Syringe IV PUSH PRN PRN Hypoglycemia Protocol Glucagon 1 mg 04/09/24 18:37 Glucagon For Inj 1 Mg Vial IM PRN PRN Hypoglycemia Protocol Glucose 15 gm 04/09/24 18:37 Glucose Oral Gel 15 Gm Of Glucse In 37.5 Gm Tube PO PRN PRN Hypoglycemia Protocol Morphine Sulfate 30 mg in 30 mls @ 1 mls/hr 04/09/24 17:30 04/14/24 01:59 Morphine Sulfate Pet Technologist IV CONT 1 mg/hr PRN PRN 1 mls/hr SENIOR RESEARCH SCIENTIST Management Administration Protocol 1 MG/HR Dextrose 1,000 mls @ 100 mls/hr 04/09/24 18:37 Dextrose 5% 1,000 Ml IVPB PRN PRN Hypoglycemia Protocol Dextrose 1,000 mls @ 50 mls/hr 04/11/24 11:47 Dextrose 10% IV CONT .Q20H PRN if PN is interrupted Multivitamins 1.25 ml/ 1,002.5 mls @ 60 mls/hr 04/11/24 14:00 04/14/24 08:59 Multivitamins 1.25 ml/ Amino IV CONT 60 mls/hr Acids/Electrolytes/Dextrose .[id number] JULIANO Infusion Protocol Fat Emulsion Intravenous 250 mls @ 20.833 mls/hr 04/11/24 14:00 04/14/24 03:20 Lipids 20% IVPB Infused Q24H JULIANO Infusion Ibuprofen 800 mg in 200 mls @ 400 mls/hr 04/12/24 10:32 04/13/24 05:46 Caldolor 800 Mg/200 Ml IVPB Infused Q6H PRN Infusion Moderate Pain (4-6) Insulin Aspart 2 - 5 units 04/10/24 00:00 04/14/24 12:09 Insulin Aspart (*Bkc) 100 Units/Ml SUB-Q Not Given Q6HR [facility] Protocol Lidocaine 1 patch 04/08/24 19:02 04/11/24 08:47 Lidocaine 5% Patch TRANSDERM 1 patch Q24H PRN Administration back pain Naloxone HCl 0.1 mg 04/09/24 21:04 Naloxone Hcl 0.4 Mg/Ml Vial IV PUSH Q5MIN PRN Opioid Reversal Ondansetron HCl 4 mg 04/08/24 13:45 04/09/24 15:29 Ondansetron Inj 4 Mg/2 Ml Vial IV PUSH 4 mg Q6H PRN Administration Nausea And Vomiting Pantoprazole Sodium 40 mg 04/10/24 09:00 04/14/24 08:06 Pantoprazole Sodium Iv 40 Mg Vial IV PUSH 40 mg QAM JULIANO Administration Potassium Chloride 40 meq 04/13/24 09:30 04/14/24 08:06 Potassium Chloride 20 Meq Packet (For Liquid) PO 40 meq BID JULIANO Administration Sertraline HCl 50 mg 04/09/24 09:00 04/14/24 08:06 Sertraline Hcl 50 Mg Tablet PO Not Given DAILY JULIANO Sodium Chloride 20 ml 04/11/24 14:26 04/14/24 05:45 Central Line Flush IV PUSH 20 ml PRN PRN Administration after blood draws Sodium Chloride 10 ml 04/11/24 14:26 04/12/24 20:24 Central Line Flush IV PUSH 10 ml PRN PRN Administration with TPN bag changes Sodium Chloride 10 ml 04/11/24 22:00 04/14/24 05:45 Central Line Flush IV PUSH 10 ml Q8HR JULIANO Administration Radiology Results: ITS Impressions MRCP 04/09/24 12:03 IMPRESSION: 1. Multiple tiny gallstones in the dependent aspect of the normal gallbladder. 2. Diffuse acute interstitial pancreatitis with prominent nonloculated peripancreatic fluid tracking into the intra and retroperitoneal soft tissue tissues. 3. No intra or extrahepatic biliary ductal dilation or evident choledocholithiasis. 4. Increased signal in the dependent lower lobes which could represent atelectasis or pneumonia. ADDENDUM: 04/09/24 1301 CORRECTION: Incorrect contrast agent is noted in the technique section. The study was performed without and with 16 mL ProHance intravenous contrast. Pelvis Ultrasound 04/09/24 13:37 IMPRESSION: 1. Unremarkable pelvic ultrasound. Chest/Abdomen/Pelvis CTA 04/11/24 12:59 IMPRESSION: 1. No evident pulmonary embolism. Sensitivity mildly decreased in the segmental and more prominently in the subsegmental pulmonary arteries due to is suboptimal opacification of the pulmonary arteries as well as small amount of respiratory and streak artifact. 2. Small left pleural effusion with partial collapse of the left lower lobe and additional atelectasis in the right lower lobe. 3. Interval progression of nonloculated peripancreatic fluid and extensive stranding consistent with acute interstitial pancreatitis. 4. Small amount of ascites in the abdomen and pelvis with increased density of the fluid in the dependent cul-de-sac suggesting complex/exudative ascites which could be seen with small amount of hemoperitoneum or peritonitis. Chest X-Ray 04/14/24 08:29 IMPRESSION: Mild pulmonary vascular congestion with a left lower lobe infiltrate and likely adjacent effusion. Abdomen/Pelvis CT 04/14/24 08:35 IMPRESSION: 1. Continued progression in nonloculated peripancreatic fluid and stranding consistent with acute interstitial pancreatitis with no abscess, necrosis or hemorrhagic transformation. 2. Small amount of likely reactive ascites in the pelvis. 3. Unchanged small left pleural effusion with partial collapse left lower lobe. Labs Labs: Laboratory Results - last 24 hr 04/10/24 04/13/24 04/13/24 06:17 17:53 23:46 WBC RBC Hgb Hct MCV MCH MCHC RDW Plt Count MPV Immature Gran % (Auto) Neut % (Auto) Lymph % (Auto) [place] % (Auto) Eos % (Auto) Baso % (Auto) Lymph # (Auto) [place] # (Auto) Eos # (Auto) Baso # (Auto) Abs Immat Gran (auto) Absolute Neuts (auto) Absolute Nucleated RBC Nucleated RBC % APTT (Factor Assay) TNP von Willebrand Antigen 209 Sodium Potassium Chloride Carbon Dioxide Anion Gap BUN Creatinine Estim Creat Clear Calc Estimated GFR Glucose POC Capillary Glucose 137 H 133 H Calcium Phosphorus Magnesium Total Bilirubin AST ALT Alkaline Phosphatase Total Protein Albumin Triglycerides Lipase 04/14/24 04/14/24 04/14/24 05:41 05:45 08:57 WBC 14.1 H RBC 3.48 L Hgb 9.0 L Hct 28.4 L MCV 81.6 MCH 25.9 L MCHC 31.7 L RDW 18.2 H Plt Count 243 MPV 9.9 Immature Gran % (Auto) 5.8 H Neut % (Auto) 80.0 H Lymph % (Auto) 8.6 L [place] % (Auto) 4.4 Eos % (Auto) 0.8 Baso % (Auto) 0.4 Lymph # (Auto) 1.21 [place] # (Auto) 0.6 Eos # (Auto) 0.1 Baso # (Auto) 0.1 Abs Immat Gran (auto) 0.81 H Absolute Neuts (auto) 11.2 H Absolute Nucleated RBC 0.050 H Nucleated RBC % 0.4 H APTT (Factor Assay) von Willebrand Antigen Sodium 134 L Potassium 3.9 Chloride 99 Carbon Dioxide 25 Anion Gap 10 BUN 4 L Creatinine 0.35 L Estim Creat Clear Calc 200 Estimated GFR > 60 Glucose 136 H POC Capillary Glucose 131 H Calcium 8.4 Phosphorus 4.0 Magnesium 2.1 Total Bilirubin 1.1 AST 19 ALT 40 H Alkaline Phosphatase 159 H Total Protein 6.0 L Albumin 3.0 L Triglycerides 123 Lipase 245 04/14/24 12:03 WBC RBC Hgb Hct MCV MCH MCHC RDW Plt Count MPV Immature Gran % (Auto) Neut % (Auto) Lymph % (Auto) [place] % (Auto) Eos % (Auto) Baso % (Auto) Lymph # (Auto) [place] # (Auto) Eos # (Auto) Baso # (Auto) Abs Immat Gran (auto) Absolute Neuts (auto) Absolute Nucleated RBC Nucleated RBC % APTT (Factor Assay) von Willebrand Antigen Sodium Potassium Chloride Carbon Dioxide Anion Gap BUN Creatinine Estim Creat Clear Calc Estimated GFR Glucose POC Capillary Glucose 160 H Calcium Phosphorus Magnesium Total Bilirubin AST ALT Alkaline Phosphatase Total Protein Albumin Triglycerides Lipase
[2024-04-14] MEDS: AMINO ACIDS 5%/D15W/E-LYTES/CA 1,000 ML with MULTIVITAMINS-12 INJ VIAL 1 1.25 ML, MULTI... 60 ML IV CONT (13:37)
[2024-04-14] MEDS: FAT EMULSIONS IV 20% 250 ML 20 ML IVPB (13:38)
[2024-04-14] MEDS: polyethylene glycoL 3350 17 GM POWD.PACK PO (13:39)
[2024-04-14 17:13] LABS: Glucose Point of Care 169 mg/dl (65-105)
[2024-04-14] MEDS: SENNA/DOCUSATE SODIUM TABLET 2 TAB PO (21:02)
[2024-04-14 22:57] LABS: Glucose Point of Care 151 mg/dl (65-105)
[2024-04-15] VITALS (11 sets, daily range): BP systolic 121–138; BP diastolic 55–72; PULSE 80–122; RESP 18–26; TEMP 36.1–37.4; O2SAT 93–99
[2024-04-15 05:48] LABS: Glucose Point of Care 162 mg/dl (65-105)
[2024-04-15] MEDS: CENTRAL LINE FLUSH 20 ML IV PUSH (05:58)
[2024-04-15] MEDS: CENTRAL LINE FLUSH 10 ML IV PUSH ×3 (05:58→21:05)
[2024-04-15 06:05] LABS: Basophils Absolute Auto 0.1 K/mm3 (0.0-0.1); Basophils Percent Auto 0.4 % (0.2-1.2); Eosinophils Absolute Auto 0.1 K/mm3 (0-0.3); Eosinophils Percent Auto 0.7 % (0-4.4); Hematocrit 30.4 % (37.0-47.0); Hemoglobin 9.5 g/dL (12.0-15.0); Immature Granulocyte Percent A 7.8 % (0-0.5); Lymphocytes Absolute Auto 1.24 K/mm3 (0.9-3.2); Lymphocytes Percent Auto 6.9 % (18.3-44.2); Mean Corpuscular HGB Conc 31.3 g/dl (32-36); Mean Corpuscular Hemoglobin 25.4 pg (26-34); Mean Corpuscular Volume 81.3 fl (80-100); Mean Platelet Volume 9.7 fl (7.4-10.4); Monocytes Absolute Auto 0.9 K/mm3 (0.1-0.6); Neutrophils Absolute Auto 14.3 K/mm3 (1.3-6.7); Neutrophils Percent Auto 79.2 % (45.5-73.1); Nucleated Red Blood Cells Perc 0.2 % (0.0-0.2); Platelet Count Result 265 k/mm3 (150-375); Red Blood Count 3.74 M/mm3 (4.2-5.4); Red Cell Distribution Width 18.2 % (11.5-14.5)
--- NOTE | 2024-04-15 06:08 | PC.NURSE ---
BUSINESS CONTINUITY SPECIALIST pump shift volume cleared @0600. BUSINESS CONTINUITY SPECIALIST pump shift volume was not cleared previous shift. Total volume for this shift and previous shift was 46.2 mg. BUSINESS CONTINUITY SPECIALIST pump settings are as follow: continuous rate 1mg/hr, bolus rate 1 mg with a lockout of every 8 minutes.
[2024-04-15 06:21] LABS: Anion Gap 11 mmol/L (4-12); Blood Urea Nitrogen 10 mg/dL (7-17); Calcium 8.7 mg/dL (8.4-10.2); Carbon Dioxide 25 mmol/L (22-30); Chloride 96 mmol/L (98-107); Estimated CRCL calculation 195 ml/min; Estimated Glomerular Filt Rate > 60; Glucose 160 mg/dL (65-110); Phosphorus 4.8 mg/dL (2.5-4.5); Potassium 4.4 mmol/L (3.4-5.0); Sodium 132 mmol/L (137-145)
[2024-04-15] MEDS: polyethylene glycoL 3350 17 GM POWD.PACK PO (07:52)
[2024-04-15] MEDS: AMINO ACIDS 5%/D15W/E-LYTES/CA 1,000 ML with MULTIVITAMINS-12 INJ VIAL 1 1.25 ML, MULTI... 60 ML IV CONT (07:52)
[2024-04-15] MEDS: POTASSIUM CHLORIDE 20 MEQ PACKET (FOR LIQUID) 40 MEQ PO (07:52)
[2024-04-15] MEDS: PANTOPRAZOLE SODIUM IV 40 MG VIAL IV PUSH (07:52)
[2024-04-15] MEDS: SERTRALINE HCL 50 MG TABLET PO (07:53)
--- NOTE | 2024-04-15 07:53 | P.PNIM_ITS ---
Progress Note: A&P Assessment and Plan (1) Anxiety and depression: Code(s): F41.9 - Anxiety disorder, unspecified; F32.A - Depression, unspecified Status: Acute (2) Depression: Code(s): F32.A - Depression, unspecified Status: Acute (3) Acute pancreatitis: Qualifiers: Acute pancreatitis complication: unspecified Pancreatitis type: unspecified pancreatitis type Qualified Code(s): K85.90 - Acute pancreatitis without necrosis or infection, unspecified Code(s): K85.90 - Acute pancreatitis without necrosis or infection, unspecified Status: Acute (4) Cholelithiasis: Qualifiers: Biliary obstruction: with biliary obstruction Cholecystitis presence: without cholecystitis Cholelithiasis location: gallbladder Qualified Code(s): K80.21 - Calculus of gallbladder without cholecystitis with obstruction Code(s): K80.20 - Calculus of gallbladder without cholecystitis without obstruction Status: Chronic Plan Gallstone pancreatitis: Code(s): K85.10 - Biliary acute pancreatitis without necrosis or infection Status: Acute Assessment and Plan: Patient presents with abdominal pain and found to have lipase >40K. CTA chest/abdomen/pelvis shows acute interstitial pancreatitis with prominent nonloculated acute peripancreatic fluid collections and stranding, tiny GS versus porcelain gallbladder with mural calcification along the dependent wall of the otherwise normal GB, no evident choledocholithiasis or intra or extra hepatic biliary ductal dilation and mild dependent atelectasis in the lower lobes. No pulmonary embolism or other acute cardiopulmonary disease. MRCP showing similar findings from the CT scan and no evidence of choledocholithiasis. Patient with GS Pancreatitis. General surgery and GI consulted and appreciate their input. TG 198. Lipase trending downward at 300. TB better at 1.1 and other liver tests normalize Repeat CT A/P (04/11) showing interval progression of non loculated peripancreatic fluid and extensive stranding consistent with acute interstitial pancreatitis Diet started. Continue TPN. Supportive care. Follow LFTs and lipase levels. Cholelithiasis: Qualifiers: Biliary obstruction: with biliary obstruction Cholecystitis presence: without cholecystitis Cholelithiasis location: gallbladder Qualified Code(s): K80.21 - Calculus of gallbladder without cholecystitis with obstruction Code(s): K80.20 - Calculus of gallbladder without cholecystitis without obstruction Status: Chronic Assessment and Plan: As above SIRS vs sepsis Leukocytosis, white blood cell is trending up, patient also has tachycardia tachypnea low-grade fever Patient is afebrile, but leukocytosis trending up cxr:a left lower lobe infiltrate and likely adjacent effusion. CT abdomen pelvis shows no abscess necrosis or hemorrhagic transformation, small amount reactive ascites in the pelvis, small left pleural effusion with partial collapse of left lower lobe Possible reaction to pancreatitis, but also has risks of intra-abdominal infection, currently patient is on TPN that places patient on risk of infection also Order blood culture, urinalysis will empirically treat infection with vancomycin, ceftriaxone and Flagyl Transaminitis: Code(s): R74.01 - Elevation of levels of liver transaminase levels Status: Acute Assessment and Plan: As above. Elevated partial thromboplastin time (PTT): Code(s): R79.1 - Abnormal coagulation profile Status: Chronic Assessment and Plan: PTT 197, previously 159 on 06/27/2023. Patient has previously been referred to Hematology but has not follow-up with this. Her mother and maternal grandmother have some form of clotting disorder and are both She has bleeding gums but no miscarriages or early bruising. 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 Oncology/hematology consulted and appreciate their input Abnormal uterine bleeding: Code(s): N93.9 - Abnormal uterine and vaginal bleeding, unspecified Status: Acute Assessment and Plan: Patient reports vaginal bleeding since delivery in February. Hgb 13.2 upon arrival in the ED Pelvic ultrasound was unremarkable. Could be related to her elevated PTT. HH has trended down to 8.4 today but could be related to fluids. clinical manager home care consulted and appreciate their input Hypokalemia: Code(s): E87.6 - Hypokalemia Status: Acute Assessment and Plan: Repeated, potassium still low. Mag 2.2 Replace potassium Replace Phos as well. Subjective Date/time seen: 04/15/24 07:53 Interval history: Patient has low-grade fever 99.4, tachycardia tachypnea, leukocytosis 18,000, that is trending up, with a left shift Patient is on TPN and liquid diet Patient has some cough, and dysuria Pain is well controlled on [employer] Exam Narrative: GENERAL: Pleasant, in no acute distress. Well-nourished. - EYES: EOMI. Anicteric. - HENT: Moist mucous membranes. - LUNGS: Clear to auscultation bilateral ly, no wheezing, rhonchi, or rales. Tachypnea - CARDIOVASCULAR: Regular rate and rhyth m. No murmur. No JVD. Tachycardia - ABDOMEN: Soft, diffuse tender and some distended. No palpable masses. - EXTREMITIES: No edema. Peripheral puls es 2+. Non-tender. - NEUROLOGIC: No focal neurological defi cits. CN II-XII grossly intact. - PSYCHIATRIC: Awake, Alert and oriented x 3. Appropriate mood and affect. - SKIN: No rashes or lesions. Warm. - LYMPH: No cervical lymphadenopathy. Objective Data Vital Signs Vital Signs: Vital Signs - 24 hr 04/14/24 08:04 04/14/24 08:10 04/14/24 08:10 Temperature Pulse Rate 121 H 104 H Respiratory Rate 20 20 Blood Pressure Pulse Oximetry 93 93 Oxygen Delivery Room Air Fraction of Inspired Oxygen 21 04/14/24 08:48 04/14/24 10:00 04/14/24 12:00 Temperature 97.8 F Pulse Rate 120 H Respiratory Rate 20 18 Blood Pressure 121/71 Pulse Oximetry 95 96 97 Oxygen Delivery Room Air Fraction of Inspired Oxygen 04/14/24 12:01 04/14/24 12:01 04/14/24 13:56 Temperature Pulse Rate 124 H Respiratory Rate 20 20 Blood Pressure Pulse Oximetry 94 95 Oxygen Delivery Fraction of Inspired Oxygen 04/14/24 14:00 04/14/24 15:03 04/14/24 16:00 Temperature 97.9 F Pulse Rate 132 H Respiratory Rate 20 20 19 Blood Pressure 128/78 Pulse Oximetry 96 94 98 Oxygen Delivery Fraction of Inspired Oxygen 04/14/24 16:04 04/14/24 16:04 04/14/24 18:00 Temperature Pulse Rate 121 H Respiratory Rate 20 20 Blood Pressure Pulse Oximetry 95 95 Oxygen Delivery Fraction of Inspired Oxygen 04/14/24 19:51 04/14/24 20:00 04/14/24 20:00 Temperature 97.0 F L Pulse Rate 125 H 122 H Respiratory Rate 24 H 18 20 Blood Pressure 133/71 Pulse Oximetry 93 96 95 Oxygen Delivery Room Air Fraction of Inspired Oxygen 21 04/14/24 20:00 04/14/24 21:00 04/14/24 22:00 Temperature Pulse Rate 120 H Respiratory Rate 16 Blood Pressure Pulse Oximetry 93 Oxygen Delivery Room Air Fraction of Inspired Oxygen 04/15/24 00:00 04/15/24 00:00 04/15/24 00:00 Temperature 97.0 F L Pulse Rate 122 H 111 H Respiratory Rate 18 20 Blood Pressure 133/71 Pulse Oximetry 96 95 Oxygen Delivery Fraction of Inspired Oxygen 04/15/24 02:00 04/15/24 04:00 04/15/24 04:00 Temperature Pulse Rate 115 H Respiratory Rate 20 20 Blood Pressure Pulse Oximetry 93 94 Oxygen Delivery Fraction of Inspired Oxygen 04/15/24 04:00 04/15/24 06:00 Temperature 99.4 F Pulse Rate 117 H Respiratory Rate 18 20 Blood Pressure 132/60 Pulse Oximetry 97 95 Oxygen Delivery Fraction of Inspired Oxygen Intake/Output Intake/Output: Intake & Output 04/12/24 04/13/24 04/14/24 04/15/24 23:59 23:59 23:59 23:59 Intake Total 4036.0 2429.3 2049.3 550 Balance 4036.0 2429.3 2049.3 550 Meds/Results Medications: Active Medications Generic Name Dose Route Start Last Admin Trade Name Freq PRN Reason Stop Dose Admin Acetaminophen 650 mg 04/08/24 13:45 Acetaminophen 325 Mg Tablet PO Q4H PRN Mild Pain (1-3) or Fever Dextrose 12.5 gm 04/09/24 18:37 Dextrose 50% 25 Gm/50 Ml Syringe IV PUSH PRN PRN Hypoglycemia Protocol Glucagon 1 mg 04/09/24 18:37 Glucagon For Inj 1 Mg Vial IM PRN PRN Hypoglycemia Protocol Glucose 15 gm 04/09/24 18:37 Glucose Oral Gel 15 Gm Of Glucse In 37.5 Gm Tube PO PRN PRN Hypoglycemia Protocol Morphine Sulfate 30 mg in 30 mls @ 1 mls/hr 04/09/24 17:30 04/14/24 15:03 Morphine Sulfate Cocoa Roaster IV CONT 1 mg/hr PRN PRN 1 mls/hr [employer] Management Administration Protocol 1 MG/HR Dextrose 1,000 mls @ 100 mls/hr 04/09/24 18:37 Dextrose 5% 1,000 Ml IVPB PRN PRN Hypoglycemia Protocol Dextrose 1,000 mls @ 50 mls/hr 04/11/24 11:47 Dextrose 10% IV CONT .Q20H PRN if PN is interrupted Multivitamins 1.25 ml/ 1,002.5 mls @ 60 mls/hr 04/11/24 14:00 04/14/24 13:37 Multivitamins 1.25 ml/ Amino IV CONT 60 mls/hr Acids/Electrolytes/Dextrose .[id number] JULIANO Administration Protocol Fat Emulsion Intravenous 250 mls @ 20.833 mls/hr 04/11/24 14:00 04/15/24 02:08 Lipids 20% IVPB Infused Q24H JULIANO Infusion Ibuprofen 800 mg in 200 mls @ 400 mls/hr 04/12/24 10:32 04/13/24 05:46 Caldolor 800 Mg/200 Ml IVPB Infused Q6H PRN Infusion Moderate Pain (4-6) Insulin Aspart 2 - 5 units 04/10/24 00:00 04/15/24 06:05 Insulin Aspart (*Bkc) 100 Units/Ml SUB-Q Not Given Q6HR [facility] Protocol Lidocaine 1 patch 04/08/24 19:02 04/11/24 08:47 Lidocaine 5% Patch TRANSDERM 1 patch Q24H PRN Administration back pain Naloxone HCl 0.1 mg 04/09/24 21:04 Naloxone Hcl 0.4 Mg/Ml Vial IV PUSH Q5MIN PRN Opioid Reversal Ondansetron HCl 4 mg 04/08/24 13:45 04/09/24 15:29 Ondansetron Inj 4 Mg/2 Ml Vial IV PUSH 4 mg Q6H PRN Administration Nausea And Vomiting Pantoprazole Sodium 40 mg 04/10/24 09:00 04/14/24 08:06 Pantoprazole Sodium Iv 40 Mg Vial IV PUSH 40 mg QAM JULIANO Administration Polyethylene Glycol 17 gm 04/14/24 13:10 04/14/24 13:39 Polyethylene Glycol 3350 17 Gm Powd.Pack PO 17 gm QAM JULIANO Administration Potassium Chloride 40 meq 04/13/24 09:30 04/14/24 17:05 Potassium Chloride 20 Meq Packet (For Liquid) PO 40 meq BID JULIANO Administration Senna/Docusate Sodium 2 tab 04/14/24 21:00 04/14/24 21:02 Senna/Docusate Sodium Tablet PO 2 tab HS JULIANO Administration Sertraline HCl 50 mg 04/09/24 09:00 04/14/24 08:06 Sertraline Hcl 50 Mg Tablet PO Not Given DAILY JULIANO Sodium Chloride 20 ml 04/11/24 14:26 04/15/24 05:58 Central Line Flush IV PUSH 20 ml PRN PRN Administration after blood draws Sodium Chloride 10 ml 04/11/24 14:26 04/12/24 20:24 Central Line Flush IV PUSH 10 ml PRN PRN Administration with TPN bag changes Sodium Chloride 10 ml 04/11/24 22:00 04/15/24 05:58 Central Line Flush IV PUSH 10 ml Q8HR JULIANO Administration Radiology Results: ITS Impressions MRCP 04/09/24 12:03 IMPRESSION: 1. Multiple tiny gallstones in the dependent aspect of the normal gallbladder. 2. Diffuse acute interstitial pancreatitis with prominent nonloculated peripancreatic fluid tracking into the intra and retroperitoneal soft tissue tissues. 3. No intra or extrahepatic biliary ductal dilation or evident choledocholithiasis. 4. Increased signal in the dependent lower lobes which could represent atelectasis or pneumonia. ADDENDUM: 04/09/24 1301 CORRECTION: Incorrect contrast agent is noted in the technique section. The study was performed without and with 16 mL ProHance intravenous contrast. Pelvis Ultrasound 04/09/24 13:37 IMPRESSION: 1. Unremarkable pelvic ultrasound. Chest/Abdomen/Pelvis CTA 04/11/24 12:59 IMPRESSION: 1. No evident pulmonary embolism. Sensitivity mildly decreased in the segmental and more prominently in the subsegmental pulmonary arteries due to is suboptimal opacification of the pulmonary arteries as well as small amount of respiratory and streak artifact. 2. Small left pleural effusion with partial collapse of the left lower lobe and additional atelectasis in the right lower lobe. 3. Interval progression of nonloculated peripancreatic fluid and extensive stranding consistent with acute interstitial pancreatitis. 4. Small amount of ascites in the abdomen and pelvis with increased density of the fluid in the dependent cul-de-sac suggesting complex/exudative ascites which could be seen with small amount of hemoperitoneum or peritonitis. Chest X-Ray 04/14/24 08:29 IMPRESSION: Mild pulmonary vascular congestion with a left lower lobe infiltrate and likely adjacent effusion. Abdomen/Pelvis CT 04/14/24 08:35 IMPRESSION: 1. Continued progression in nonloculated peripancreatic fluid and stranding consistent with acute interstitial pancreatitis with no abscess, necrosis or hemorrhagic transformation. 2. Small amount of likely reactive ascites in the pelvis. 3. Unchanged small left pleural effusion with partial collapse left lower lobe. Labs Labs: Laboratory Results - last 24 hr 04/10/24 04/14/24 04/14/24 06:17 05:41 08:57 WBC RBC Hgb Hct MCV MCH MCHC RDW Plt Count MPV Immature Gran % (Auto) Neut % (Auto) Lymph % (Auto) [place]gs % (Auto) Eos % (Auto) Baso % (Auto) Lymph # (Auto) [place] # (Auto) Eos # (Auto) Baso # (Auto) Abs Immat Gran (auto) Absolute Neuts (auto) Absolute Nucleated RBC Nucleated RBC % APTT (Factor Assay) TNP Sodium Potassium Chloride Carbon Dioxide Anion Gap BUN Creatinine Estim Creat Clear Calc Estimated GFR Glucose POC Capillary Glucose Calcium Phosphorus Triglycerides 123 Lipase 245 04/14/24 04/14/24 04/14/24 12:03 17:09 22:45 WBC RBC Hgb Hct MCV MCH MCHC RDW Plt Count MPV Immature Gran % (Auto) Neut % (Auto) Lymph % (Auto) [place] % (Auto) Eos % (Auto) Baso % (Auto) Lymph # (Auto) [place] # (Auto) Eos # (Auto) Baso # (Auto) Abs Immat Gran (auto) Absolute Neuts (auto) Absolute Nucleated RBC Nucleated RBC % APTT (Factor Assay) Sodium Potassium Chloride Carbon Dioxide Anion Gap BUN Creatinine Estim Creat Clear Calc Estimated GFR Glucose POC Capillary Glucose 160 H 169 H 151 H Calcium Phosphorus Triglycerides Lipase 04/15/24 04/15/24 05:45 05:57 WBC 18.0 H RBC 3.74 L Hgb 9.5 L Hct 30.4 L MCV 81.3 MCH 25.4 L MCHC 31.3 L RDW 18.2 H Plt Count 265 MPV 9.7 Immature Gran % (Auto) 7.8 H Neut % (Auto) 79.2 H Lymph % (Auto) 6.9 L [place]gs % (Auto) 5.0 Eos % (Auto) 0.7 Baso % (Auto) 0.4 Lymph # (Auto) 1.24 [place]gs # (Auto) 0.9 H Eos # (Auto) 0.1 Baso # (Auto) 0.1 Abs Immat Gran (auto) 1.40 H Absolute Neuts (auto) 14.3 H Absolute Nucleated RBC 0.030 H Nucleated RBC % 0.2 APTT (Factor Assay) Sodium 132 L Potassium 4.4 Chloride 96 L Carbon Dioxide 25 Anion Gap 11 BUN 10 D Creatinine 0.36 L Estim Creat Clear Calc 195 Estimated GFR > 60 Glucose 160 H POC Capillary Glucose 162 H Calcium 8.7 Phosphorus 4.8 H Triglycerides Lipase
[2024-04-15] MEDS: MORPHINE SULFATE PCA (*CRX) 30 MG/30 ML SYR IV CONT (09:14)
[2024-04-15] MEDS: IBUPROFEN 600 MG TABLET PO ×2 (09:24→21:03)
[2024-04-15] MEDS: levoFLOXacin 750 MG/D5W 150 ML 750 MG/150 ML BAG 100 MG IVPB (09:25)
--- NOTE | 2024-04-15 11:56 | PCNFU ---
Nutrition Follow-Up Complete: Inadequate po intake related to NPO status due to pancreatitis as evidenced by diet orders and need for alternative nutrition support goal: Meet estimated needs Patient is progressing towards goal. We will continue current goal. Pt current nutrition is Low Fiber with Ensure Enlive TID with Clinimix E 5/15 at 60 ml/hr. Last recorded weight is 90.6 kg, up from 80 kg on admit. Bowel Motility: BM reported 3/2 Labs Reviewed: PO4 4.8, Cr 0.36, Glu 160, Na 132 Meds Noted:Clinimix E 5/15 at 60 ml/hr, 20% Lipid Emulsion, Protonix, Senokot Skin: WNL Additional Notes: Patient remains on TPN at 60 ml/hr providing 1522 kcal and 72 gm protein. Spoke with patient today, tolerated full liquids this morning. Diet order has advanced to Low Fiber diet with Ensure Enlive TID providing an additional 350 kcal and 20 gm protein. Agree with diet orders. Monitor TPN orders, diet advancement, wt, labs. Follow up every Thursday and Thursday.
[2024-04-15 12:19] LABS: Glucose Point of Care 173 mg/dl (65-105)
[2024-04-15] MEDS: PIPERACILLN/TAZ 3.375GM/NS50ML 3.375 GM/50 ML BAG IVPB ×3 (12:39→23:49)
[2024-04-15] MEDS: ENOXAPARIN 40 MG/0.4 ML SYRINGE SUB-Q (12:39)
[2024-04-15] MEDS: VANCOMYCIN 1,250 MG/NS 250 ML 1,250 MG/250 ML BAG 166.67 MG IVPB (13:28)
--- NOTE | 2024-04-15 14:15 | WPDGIPROGNO ---
Progress Note: A&P Assessment and Plan (1) Gallstone pancreatitis: Code(s): K85.10 - Biliary acute pancreatitis without necrosis or infection Status: Acute Assessment and Plan: most recent CT scan worsening nonloculated peripancreatic fluid and extensive stranding consistent with acute interstitial pancreatitis but no pseudocyst or necrosis. 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 Review of Systems Review of Systems: All systems reviewed & are unremarkable except as noted in HPI and below Exam Const: General: no acute distress Orientation/consciousness: patient oriented x3 HENMT: Face/Nose/Sinus: Normal nares present Eyes: Sclera: sclerae normal Neck: Neck: supple Resp: Effort & Inspection: normal respiratory effort Cardio: Rate: regular rate GI: Inspection: non-distended GI Palp: Yes Soft to palpation, Yes Tenderness to palpation present (GI) (diffusely tender, worse in the upper abdomen- less painful ), No Guarding due to palpation present (GI) and No Rebound tenderness present Skin: General skin exam: no rashes or lesions noted Neuro: General: moves all extremities Extrem: General: no pedal edema and no calf tenderness Psych: Mental Status: mental status grossly normal Objective Data Vital Signs Vital Signs: Vital Signs - 24 hr 04/14/24 15:03 04/14/24 16:00 04/14/24 16:04 Temperature 97.9 F Pulse Rate 132 H Respiratory Rate 20 19 20 Blood Pressure 128/78 Pulse Oximetry 94 98 95 Oxygen Delivery Fraction of Inspired Oxygen 04/14/24 16:04 04/14/24 18:00 04/14/24 19:51 Temperature Pulse Rate 121 H 125 H Respiratory Rate 20 24 H Blood Pressure Pulse Oximetry 95 93 Oxygen Delivery Room Air Fraction of Inspired Oxygen 21 04/14/24 20:00 04/14/24 20:00 04/14/24 20:00 Temperature 97.0 F L Pulse Rate 122 H 120 H Respiratory Rate 18 20 Blood Pressure 133/71 Pulse Oximetry 96 95 Oxygen Delivery Fraction of Inspired Oxygen 04/14/24 21:00 04/14/24 22:00 04/15/24 00:00 Temperature 97.0 F L Pulse Rate 122 H Respiratory Rate 16 18 Blood Pressure 133/71 Pulse Oximetry 93 96 Oxygen Delivery Room Air Fraction of Inspired Oxygen 04/15/24 00:00 04/15/24 00:00 04/15/24 02:00 Temperature Pulse Rate 111 H Respiratory Rate 20 20 Blood Pressure Pulse Oximetry 95 93 Oxygen Delivery Fraction of Inspired Oxygen 04/15/24 04:00 04/15/24 04:00 04/15/24 04:00 Temperature 99.4 F Pulse Rate 115 H 117 H Respiratory Rate 20 18 Blood Pressure 132/60 Pulse Oximetry 94 97 Oxygen Delivery Fraction of Inspired Oxygen 04/15/24 06:00 04/15/24 08:00 04/15/24 08:00 Temperature 98.1 F Pulse Rate 110 H 112 H Respiratory Rate 20 20 22 H Blood Pressure 130/72 Pulse Oximetry 95 98 95 Oxygen Delivery Room Air Fraction of Inspired Oxygen 21 04/15/24 09:14 04/15/24 09:18 Temperature Pulse Rate 119 H Respiratory Rate 18 26 H Blood Pressure Pulse Oximetry 94 95 Oxygen Delivery Room Air Fraction of Inspired Oxygen 21 Intake/Output Intake/Output: Intake & Output 04/12/24 04/13/24 04/14/24 04/15/24 23:59 23:59 23:59 23:59 Intake Total 4036.0 2429.3 2049.3 2232.5 Balance 4036.0 2429.3 2049.3 2232.5 Meds/Results Medications: Active Medications Generic Name Dose Route Start Last Admin Trade Name Freq PRN Reason Stop Dose Admin Acetaminophen 650 mg 04/08/24 13:45 Acetaminophen 325 Mg Tablet PO Q4H PRN Fever Acetaminophen 500 mg 04/15/24 11:18 Acetaminophen 500 Mg Tablet PO Q6H PRN Pain Rated 1-3 Dextrose 12.5 gm 04/09/24 18:37 Dextrose 50% 25 Gm/50 Ml Syringe IV PUSH PRN PRN Hypoglycemia Protocol Enoxaparin Sodium 40 mg 04/16/24 09:00 Enoxaparin 40 Mg/0.4 Ml Syringe SUB-Q DAILY JULIANO Glucagon 1 mg 04/09/24 18:37 Glucagon For Inj 1 Mg Vial IM PRN PRN Hypoglycemia Protocol Glucose 15 gm 04/09/24 18:37 Glucose Oral Gel 15 Gm Of Glucse In 37.5 Gm Tube PO PRN PRN Hypoglycemia Protocol Dextrose 1,000 mls @ 100 mls/hr 04/09/24 18:37 Dextrose 5% 1,000 Ml IVPB PRN PRN Hypoglycemia Protocol Dextrose 1,000 mls @ 50 mls/hr 04/11/24 11:47 Dextrose 10% IV CONT .Q20H PRN if PN is interrupted Multivitamins 1.25 ml/ 1,002.5 mls @ 60 mls/hr 04/11/24 14:00 04/15/24 07:52 Multivitamins 1.25 ml/ Amino IV CONT 60 mls/hr Acids/Electrolytes/Dextrose .[id number] JULIANO Administration Protocol Fat Emulsion Intravenous 250 mls @ 20.833 mls/hr 04/11/24 14:00 04/15/24 02:08 Lipids 20% IVPB Infused Q24H JULIANO Infusion Ibuprofen 800 mg in 200 mls @ 400 mls/hr 04/12/24 10:32 04/13/24 05:46 Caldolor 800 Mg/200 Ml IVPB Infused Q6H PRN Infusion Moderate Pain (4-6) Vancomycin HCl 1,000 mg in 250 mls @ 250 mls/hr 04/15/24 13:30 Vancomycin 1,000 Mg/Ns 250 Ml IVPB 04/15/24 14:29 ONCE ONE Vancomycin HCl 1,500 mg in 500 mls @ 250 mls/hr 04/16/24 00:00 Vancomycin 1,500 Mg/Ns 500 Ml IVPB Q12H [facility] Piperacillin/Tazobactam/Dextrose 3.375 gm in 50 mls @ 100 mls/hr 04/15/24 12:00 04/15/24 13:09 Zosyn 3.375 Gm/Ns 50 Ml IVPB Infused Q6H [facility] Infusion Ibuprofen 600 mg 04/15/24 08:23 04/15/24 09:24 Ibuprofen 600 Mg Tablet PO 600 mg Q6H PRN Administration Toothache Insulin Aspart 2 - 5 units 04/10/24 00:00 04/15/24 12:38 Insulin Aspart (*Bkc) 100 Units/Ml SUB-Q Not Given Q6HR [facility] Protocol Lidocaine 1 patch 04/08/24 19:02 04/11/24 08:47 Lidocaine 5% Patch TRANSDERM 1 patch Q24H PRN Administration back pain Morphine Sulfate 2 mg 04/15/24 11:18 Morphine Sulfate (*Crx) 2 Mg/Ml Inj IV PUSH Q2H PRN Breakthrough Pain Rated 4-6 or NPO Morphine Sulfate 4 mg 04/15/24 11:18 Morphine Sulfate (*Crx) 4 Mg/Ml Inj IV PUSH Q2H PRN Breakthrough Pain Rated 7-10 or NPO Naloxone HCl 0.1 mg 04/15/24 11:18 Naloxone Hcl 0.4 Mg/Ml Vial IV PUSH Q2M PRN Opiate Reversal Ondansetron HCl 4 mg 04/08/24 13:45 04/09/24 15:29 Ondansetron Inj 4 Mg/2 Ml Vial IV PUSH 4 mg Q6H PRN Administration Nausea And Vomiting Oxycodone/Acetaminophen 1 tablet 04/15/24 11:18 Oxycodone/Acetaminophen (*Crx) 5-325 Mg Tablet PO Q4H PRN Pain Rated 4-6 Oxycodone/Acetaminophen 1 tab 04/15/24 11:18 Oxycodone/Acetaminophen (*Crx) 10-325 Mg Tablet PO Q6H PRN Pain Rated 7-10 Pantoprazole Sodium 40 mg 04/16/24 09:00 Pantoprazole 40 Mg Tablet PO QAM [facility] Polyethylene Glycol 17 gm 04/14/24 13:10 04/15/24 07:52 Polyethylene Glycol 3350 17 Gm Powd.Pack PO 17 gm QAM JULIANO Administration Potassium Chloride 20 meq 04/16/24 08:00 Potassium Chloride 20 Meq Er Tablet PO DAILY@0800 [facility] Senna/Docusate Sodium 2 tab 04/14/24 21:00 04/14/24 21:02 Senna/Docusate Sodium Tablet PO 2 tab HS JULIANO Administration Sertraline HCl 50 mg 04/09/24 09:00 04/15/24 07:53 Sertraline Hcl 50 Mg Tablet PO 50 mg DAILY JULIANO Administration Sodium Chloride 20 ml 04/11/24 14:26 04/15/24 05:58 Central Line Flush IV PUSH 20 ml PRN PRN Administration after blood draws Sodium Chloride 10 ml 04/11/24 14:26 04/12/24 20:24 Central Line Flush IV PUSH 10 ml PRN PRN Administration with TPN bag changes Sodium Chloride 10 ml 04/11/24 22:00 04/15/24 05:58 Central Line Flush IV PUSH 10 ml Q8HR JULIANO Administration Radiology Results: ITS Impressions MRCP 04/09/24 12:03 IMPRESSION: 1. Multiple tiny gallstones in the dependent aspect of the normal gallbladder. 2. Diffuse acute interstitial pancreatitis with prominent nonloculated peripancreatic fluid tracking into the intra and retroperitoneal soft tissue tissues. 3. No intra or extrahepatic biliary ductal dilation or evident choledocholithiasis. 4. Increased signal in the dependent lower lobes which could represent atelectasis or pneumonia. ADDENDUM: 04/09/24 1301 CORRECTION: Incorrect contrast agent is noted in the technique section. The study was performed without and with 16 mL ProHance intravenous contrast. Pelvis Ultrasound 04/09/24 13:37 IMPRESSION: 1. Unremarkable pelvic ultrasound. Chest/Abdomen/Pelvis CTA 04/11/24 12:59 IMPRESSION: 1. No evident pulmonary embolism. Sensitivity mildly decreased in the segmental and more prominently in the subsegmental pulmonary arteries due to is suboptimal opacification of the pulmonary arteries as well as small amount of respiratory and streak artifact. 2. Small left pleural effusion with partial collapse of the left lower lobe and additional atelectasis in the right lower lobe. 3. Interval progression of nonloculated peripancreatic fluid and extensive stranding consistent with acute interstitial pancreatitis. 4. Small amount of ascites in the abdomen and pelvis with increased density of the fluid in the dependent cul-de-sac suggesting complex/exudative ascites which could be seen with small amount of hemoperitoneum or peritonitis. Chest X-Ray 04/14/24 08:29 IMPRESSION: Mild pulmonary vascular congestion with a left lower lobe infiltrate and likely adjacent effusion. Abdomen/Pelvis CT 04/14/24 08:35 IMPRESSION: 1. Continued progression in nonloculated peripancreatic fluid and stranding consistent with acute interstitial pancreatitis with no abscess, necrosis or hemorrhagic transformation. 2. Small amount of likely reactive ascites in the pelvis. 3. Unchanged small left pleural effusion with partial collapse left lower lobe. Labs Labs: Laboratory Results - last 24 hr 04/14/24 04/14/24 04/15/24 17:09 22:45 05:45 WBC RBC Hgb Hct MCV MCH MCHC RDW Plt Count MPV Immature Gran % (Auto) Neut % (Auto) Lymph % (Auto) Weber % (Auto) Eos % (Auto) Baso % (Auto) Lymph # (Auto) Weber # (Auto) Eos # (Auto) Baso # (Auto) Abs Immat Gran (auto) Absolute Neuts (auto) Absolute Nucleated RBC Nucleated RBC % Sodium Potassium Chloride Carbon Dioxide Anion Gap BUN Creatinine Estim Creat Clear Calc Estimated GFR Glucose POC Capillary Glucose 169 H 151 H 162 H Calcium Phosphorus 04/15/24 04/15/24 05:57 12:15 WBC 18.0 H RBC 3.74 L Hgb 9.5 L Hct 30.4 L MCV 81.3 MCH 25.4 L MCHC 31.3 L RDW 18.2 H Plt Count 265 MPV 9.7 Immature Gran % (Auto) 7.8 H Neut % (Auto) 79.2 H Lymph % (Auto) 6.9 L Weber % (Auto) 5.0 Eos % (Auto) 0.7 Baso % (Auto) 0.4 Lymph # (Auto) 1.24 Weber # (Auto) 0.9 H Eos # (Auto) 0.1 Baso # (Auto) 0.1 Abs Immat Gran (auto) 1.40 H Absolute Neuts (auto) 14.3 H Absolute Nucleated RBC 0.030 H Nucleated RBC % 0.2 Sodium 132 L Potassium 4.4 Chloride 96 L Carbon Dioxide 25 Anion Gap 11 BUN 10 D Creatinine 0.36 L Estim Creat Clear Calc 195 Estimated GFR > 60 Glucose 160 H POC Capillary Glucose 173 H Calcium 8.7 Phosphorus 4.8 H
--- NOTE | 2024-04-15 14:18 | P.PNGS_ITS ---
Progress Note: A&P Assessment and Plan (1) Leukocytosis: Code(s): D72.829 - Elevated white blood cell count, unspecified Status: Acute Assessment and Plan: Patient does complain of dysuria. Will get a urinalysis and urine culture. She she has already been started on empiric antibiotics. She developed some hives with the Levaquin administration so this has been stopped along with the metronidazole and she was started on Zosyn. CT scan abdomen and pelvis yesterday was negative for complicated acute pancreatitis. (2) Acute pancreatitis: Qualifiers: Acute pancreatitis complication: unspecified Pancreatitis type: unspecified pancreatitis type Qualified Code(s): K85.90 - Acute pancreatitis without necrosis or infection, unspecified Code(s): K85.90 - Acute pancreatitis without necrosis or infection, unspecified Status: Acute Assessment and Plan: Pain is less, abdominal exam is better. 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 She can have p.r.n. oral analgesics with IV analgesics as backup. Increase ambulation and advance diet to low-fiber. This does seem to be improving clinically as well as with lab testing. (3) Cholelithiasis: Qualifiers: Biliary obstruction: with biliary obstruction Cholecystitis presence: without cholecystitis Cholelithiasis location: gallbladder Qualified Code(s): K80.21 - Calculus of gallbladder without cholecystitis with obstruction Code(s): K80.20 - Calculus of gallbladder without cholecystitis without obstruction Status: Chronic Assessment and Plan: No acute cholecystitis noted but will eventually need laparoscopic cholecystectomy as gallstones are likely the cause of her acute pancreatitis (4) Elevated partial thromboplastin time (PTT): Code(s): R79.1 - Abnormal coagulation profile Status: Chronic Assessment and Plan: Evaluation underway, most likely would seem to be lupus anticoagulant. Subjective Subjective Date/Time Seen: 04/15/24 14:18 Patient reports: feels better, tolerating liquids well, no bowel movement and afebrile Review of Systems Review of Systems: All systems reviewed & are unremarkable except as noted in HPI and below (HPI) Constitutional: Constitutional: Denies headache(s) ENT: Denies headache(s) Cardiovascular: Cardiovascular: Denies chest pain and Denies dyspnea Respiratory: Respiratory: Denies cough and Denies dyspnea Gastrointestinal: Gastrointestinal: Reports abdominal pain and Reports constipation Genitourinary: Genitourinary: Reports dysuria Neurologic: Denies confusion and Denies headache(s) Psychiatric: Psychiatric: Denies confusion Objective Data Vital Signs Vital Signs: Vital Signs - 24 hr 04/14/24 15:03 04/14/24 16:00 04/14/24 16:04 Temperature 36.6 C Pulse Rate 132 H Respiratory Rate 20 19 20 Blood Pressure 128/78 Pulse Oximetry 94 98 95 Oxygen Delivery Fraction of Inspired Oxygen 04/14/24 16:04 04/14/24 18:00 04/14/24 19:51 Temperature Pulse Rate 121 H 125 H Respiratory Rate 20 24 H Blood Pressure Pulse Oximetry 95 93 Oxygen Delivery Room Air Fraction of Inspired Oxygen 21 04/14/24 20:00 04/14/24 20:00 04/14/24 20:00 Temperature 36.1 C L Pulse Rate 122 H 120 H Respiratory Rate 18 20 Blood Pressure 133/71 Pulse Oximetry 96 95 Oxygen Delivery Fraction of Inspired Oxygen 04/14/24 21:00 04/14/24 22:00 04/15/24 00:00 Temperature 36.1 C L Pulse Rate 122 H Respiratory Rate 16 18 Blood Pressure 133/71 Pulse Oximetry 93 96 Oxygen Delivery Room Air Fraction of Inspired Oxygen 04/15/24 00:00 04/15/24 00:00 04/15/24 02:00 Temperature Pulse Rate 111 H Respiratory Rate 20 20 Blood Pressure Pulse Oximetry 95 93 Oxygen Delivery Fraction of Inspired Oxygen 04/15/24 04:00 04/15/24 04:00 04/15/24 04:00 Temperature 37.4 C Pulse Rate 115 H 117 H Respiratory Rate 20 18 Blood Pressure 132/60 Pulse Oximetry 94 97 Oxygen Delivery Fraction of Inspired Oxygen 04/15/24 06:00 04/15/24 08:00 04/15/24 08:00 Temperature 36.7 C Pulse Rate 110 H 112 H Respiratory Rate 20 20 22 H Blood Pressure 130/72 Pulse Oximetry 95 98 95 Oxygen Delivery Room Air Fraction of Inspired Oxygen 21 04/15/24 09:14 04/15/24 09:18 Temperature Pulse Rate 119 H Respiratory Rate 18 26 H Blood Pressure Pulse Oximetry 94 95 Oxygen Delivery Room Air Fraction of Inspired Oxygen 21 Intake/Output Intake/Output: Intake & Output 04/12/24 04/13/24 04/14/24 04/15/24 23:59 23:59 23:59 23:59 Intake Total 4036.0 2429.3 2049.3 2332.5 Balance 4036.0 2429.3 2049.3 2332.5 Meds/Results Medications: Active Medications Generic Name Dose Route Start Last Admin Trade Name Freq PRN Reason Stop Dose Admin Acetaminophen 650 mg 04/08/24 13:45 Acetaminophen 325 Mg Tablet PO Q4H PRN Fever Acetaminophen 500 mg 04/15/24 11:18 Acetaminophen 500 Mg Tablet PO Q6H PRN Pain Rated 1-3 Dextrose 12.5 gm 04/09/24 18:37 Dextrose 50% 25 Gm/50 Ml Syringe IV PUSH PRN PRN Hypoglycemia Protocol Enoxaparin Sodium 40 mg 04/16/24 09:00 Enoxaparin 40 Mg/0.4 Ml Syringe SUB-Q DAILY JULIANO Glucagon 1 mg 04/09/24 18:37 Glucagon For Inj 1 Mg Vial IM PRN PRN Hypoglycemia Protocol Glucose 15 gm 04/09/24 18:37 Glucose Oral Gel 15 Gm Of Glucse In 37.5 Gm Tube PO PRN PRN Hypoglycemia Protocol Dextrose 1,000 mls @ 100 mls/hr 04/09/24 18:37 Dextrose 5% 1,000 Ml IVPB PRN PRN Hypoglycemia Protocol Dextrose 1,000 mls @ 50 mls/hr 04/11/24 11:47 Dextrose 10% IV CONT .Q20H PRN if PN is interrupted Multivitamins 1.25 ml/ 1,002.5 mls @ 60 mls/hr 04/11/24 14:00 04/15/24 07:52 Multivitamins 1.25 ml/ Amino IV CONT 60 mls/hr Acids/Electrolytes/Dextrose .[id number] JULIANO Administration Protocol Fat Emulsion Intravenous 250 mls @ 20.833 mls/hr 04/11/24 14:00 04/15/24 02:08 Lipids 20% IVPB Infused Q24H JULIANO Infusion Ibuprofen 800 mg in 200 mls @ 400 mls/hr 04/12/24 10:32 04/13/24 05:46 Caldolor 800 Mg/200 Ml IVPB Infused Q6H PRN Infusion Moderate Pain (4-6) Vancomycin HCl 1,000 mg in 250 mls @ 250 mls/hr 04/15/24 13:30 Vancomycin 1,000 Mg/Ns 250 Ml IVPB 04/15/24 14:29 ONCE ONE Vancomycin HCl 1,500 mg in 500 mls @ 250 mls/hr 04/16/24 00:00 Vancomycin 1,500 Mg/Ns 500 Ml IVPB Q12H [facility] Piperacillin/Tazobactam/Dextrose 3.375 gm in 50 mls @ 100 mls/hr 04/15/24 12:00 04/15/24 13:09 Zosyn 3.375 Gm/Ns 50 Ml IVPB Infused Q6H [facility] Infusion Ibuprofen 600 mg 04/15/24 08:23 04/15/24 09:24 Ibuprofen 600 Mg Tablet PO 600 mg Q6H PRN Administration Toothache Insulin Aspart 2 - 5 units 04/10/24 00:00 04/15/24 12:38 Insulin Aspart (*Bkc) 100 Units/Ml SUB-Q Not Given Q6HR [facility] Protocol Lidocaine 1 patch 04/08/24 19:02 04/11/24 08:47 Lidocaine 5% Patch TRANSDERM 1 patch Q24H PRN Administration back pain Morphine Sulfate 2 mg 04/15/24 11:18 Morphine Sulfate (*Crx) 2 Mg/Ml Inj IV PUSH Q2H PRN Breakthrough Pain Rated 4-6 or NPO Morphine Sulfate 4 mg 04/15/24 11:18 Morphine Sulfate (*Crx) 4 Mg/Ml Inj IV PUSH Q2H PRN Breakthrough Pain Rated 7-10 or NPO Naloxone HCl 0.1 mg 04/15/24 11:18 Naloxone Hcl 0.4 Mg/Ml Vial IV PUSH Q2M PRN Opiate Reversal Ondansetron HCl 4 mg 04/08/24 13:45 04/09/24 15:29 Ondansetron Inj 4 Mg/2 Ml Vial IV PUSH 4 mg Q6H PRN Administration Nausea And Vomiting Oxycodone/Acetaminophen 1 tablet 04/15/24 11:18 Oxycodone/Acetaminophen (*Crx) 5-325 Mg Tablet PO Q4H PRN Pain Rated 4-6 Oxycodone/Acetaminophen 1 tab 04/15/24 11:18 Oxycodone/Acetaminophen (*Crx) 10-325 Mg Tablet PO Q6H PRN Pain Rated 7-10 Pantoprazole Sodium 40 mg 04/16/24 09:00 Pantoprazole 40 Mg Tablet PO QAM JULIANO Polyethylene Glycol 17 gm 04/14/24 13:10 04/15/24 07:52 Polyethylene Glycol 3350 17 Gm Powd.Pack PO 17 gm QAM JULIANO Administration Potassium Chloride 20 meq 04/16/24 08:00 Potassium Chloride 20 Meq Er Tablet PO DAILY@0800 JULIANO Senna/Docusate Sodium 2 tab 04/14/24 21:00 04/14/24 21:02 Senna/Docusate Sodium Tablet PO 2 tab HS JULIANO Administration Sertraline HCl 50 mg 04/09/24 09:00 04/15/24 07:53 Sertraline Hcl 50 Mg Tablet PO 50 mg DAILY JULIANO Administration Sodium Chloride 20 ml 04/11/24 14:26 04/15/24 05:58 Central Line Flush IV PUSH 20 ml PRN PRN Administration after blood draws Sodium Chloride 10 ml 04/11/24 14:26 04/12/24 20:24 Central Line Flush IV PUSH 10 ml PRN PRN Administration with TPN bag changes Sodium Chloride 10 ml 04/11/24 22:00 04/15/24 05:58 Central Line Flush IV PUSH 10 ml Q8HR JULIANO Administration Radiology Results: ITS Impressions MRCP 04/09/24 12:03 IMPRESSION: 1. Multiple tiny gallstones in the dependent aspect of the normal gallbladder. 2. Diffuse acute interstitial pancreatitis with prominent nonloculated peripancreatic fluid tracking into the intra and retroperitoneal soft tissue tissues. 3. No intra or extrahepatic biliary ductal dilation or evident choledocholithiasis. 4. Increased signal in the dependent lower lobes which could represent atelecta sis or pneumonia. ADDENDUM: 04/09/24 1301 CORRECTION: Incorrect contrast agent is noted in the technique section. The study was performed without and with 16 mL ProHance intravenous contrast. Pelvis Ultrasound 04/09/24 13:37 IMPRESSION: 1. Unremarkable pelvic ultrasound. Chest/Abdomen/Pelvis CTA 04/11/24 12:59 IMPRESSION: 1. No evident pulmonary embolism. Sensitivity mildly decreased in the segmental and more prominently in the subsegmental pulmonary arteries due to is suboptimal opacification of the pulmonary arteries as well as small amount of respiratory and streak artifact. 2. Small left pleural effusion with partial collapse of the left lower lobe and additional atelectasis in the right lower lobe. 3. Interval progression of nonloculated peripancreatic fluid and extensive stranding consistent with acute interstitial pancreatitis. 4. Small amount of ascites in the abdomen and pelvis with increased density of the fluid in the dependent cul-de-sac suggesting complex/exudative ascites which could be seen with small amount of hemoperitoneum or peritonitis. Chest X-Ray 04/14/24 08:29 IMPRESSION: Mild pulmonary vascular congestion with a left lower lobe infiltrate and likely adjacent effusion. Abdomen/Pelvis CT 04/14/24 08:35 IMPRESSION: 1. Continued progression in nonloculated peripancreatic fluid and stranding consistent with acute interstitial pancreatitis with no abscess, necrosis or hemorrhagic transformation. 2. Small amount of likely reactive ascites in the pelvis. 3. Unchanged small left pleural effusion with partial collapse left lower lobe. Labs Labs: Laboratory Results - last 24 hr 04/14/24 04/14/24 04/15/24 17:09 22:45 05:45 WBC RBC Hgb Hct MCV MCH MCHC RDW Plt Count MPV Immature Gran % (Auto) Neut % (Auto) Lymph % (Auto) Gillespie % (Auto) Eos % (Auto) Baso % (Auto) Lymph # (Auto) Gillespie # (Auto) Eos # (Auto) Baso # (Auto) Abs Immat Gran (auto) Absolute Neuts (auto) Absolute Nucleated RBC Nucleated RBC % Sodium Potassium Chloride Carbon Dioxide Anion Gap BUN Creatinine Estim Creat Clear Calc Estimated GFR Glucose POC Capillary Glucose 169 H 151 H 162 H Calcium Phosphorus 04/15/24 04/15/24 05:57 12:15 WBC 18.0 H RBC 3.74 L Hgb 9.5 L Hct 30.4 L MCV 81.3 MCH 25.4 L MCHC 31.3 L RDW 18.2 H Plt Count 265 MPV 9.7 Immature Gran % (Auto) 7.8 H Neut % (Auto) 79.2 H Lymph % (Auto) 6.9 L Gillespie % (Auto) 5.0 Eos % (Auto) 0.7 Baso % (Auto) 0.4 Lymph # (Auto) 1.24 Gillespie # (Auto) 0.9 H Eos # (Auto) 0.1 Baso # (Auto) 0.1 Abs Immat Gran (auto) 1.40 H Absolute Neuts (auto) 14.3 H Absolute Nucleated RBC 0.030 H Nucleated RBC % 0.2 Sodium 132 L Potassium 4.4 Chloride 96 L Carbon Dioxide 25 Anion Gap 11 BUN 10 D Creatinine 0.36 L Estim Creat Clear Calc 195 Estimated GFR > 60 Glucose 160 H POC Capillary Glucose 173 H Calcium 8.7 Phosphorus 4.8 H White blood cell count even higher today with more left shift on automated differential.
[2024-04-15] MEDS: FAT EMULSIONS IV 20% 250 ML 20 ML IVPB (15:06)
[2024-04-15] MEDS: VANCOMYCIN 1,000 MG/NS 250 ML 1,000 MG/250 ML BAG 250 MG IVPB (15:06)
[2024-04-15 16:59] LABS: Add Urine Microscopic? YES; Appearance Urine Turbid (Clear); Bacteria Urine None Seen /hpf; Bilirubin Urine Negative (Negative); Blood Urine 2+ (Negative); Color Urine Yellow (Yellow); Glucose Urine UA Negative (Negative); Ketones Urine Negative (Negative); Leukocyte Esterase Ur 2+ LEU/UL (Negative); Nitrate Urine Negative (Negative); Protein Urine 1+ mg/dL (Negative); Specific Grav Ur 1.016 (1.001-1.035); Squamous Epithelial Cell Urine Occasional /hpf (Few); WBC Urine >100 /hpf (0-3); pH Urine 5.5 (5.0-9.0)
[2024-04-15 17:43] LABS: Glucose Point of Care 197 mg/dl (65-105)
[2024-04-15] MEDS: oxyCODONE/ACETAMINOPHEN (*CRX) 5-325 MG TABLET 1 TABLET PO (18:13)
[2024-04-15] MEDS: SENNA/DOCUSATE SODIUM TABLET 2 TAB PO (21:04)
[2024-04-15 23:51] LABS: Glucose Point of Care 119 mg/dl (65-105)
[2024-04-16] VITALS (7 sets, daily range): BP systolic 112–134; BP diastolic 51–69; PULSE 71–100; RESP 16–20; TEMP 36.4–36.9; O2SAT 91–99
[2024-04-16] MEDS: VANCOMYCIN 1,500 MG/NS 500 ML 1,500 MG/500 ML BAG 250 MG IVPB ×2 (00:24→12:41)
[2024-04-16] MEDS: CENTRAL LINE FLUSH 10 ML IV PUSH ×4 (00:29→22:00)
[2024-04-16] MEDS: AMINO ACIDS 5%/D15W/E-LYTES/CA 1,000 ML with MULTIVITAMINS-12 INJ VIAL 1 1.25 ML, MULTI... 60 ML IV CONT (00:29)
[2024-04-16] MEDS: IBUPROFEN 600 MG TABLET PO ×3 (03:21→21:39)
[2024-04-16] MEDS: CENTRAL LINE FLUSH 20 ML IV PUSH (04:34)
[2024-04-16 04:41] LABS: Basophils Absolute Auto 0.1 K/mm3 (0.0-0.1); Basophils Percent Auto 0.4 % (0.2-1.2); Eosinophils Absolute Auto 0.2 K/mm3 (0-0.3); Eosinophils Percent Auto 0.9 % (0-4.4); Hematocrit 27.7 % (37.0-47.0); Hemoglobin 8.8 g/dL (12.0-15.0); Immature Granulocyte Percent A 8.5 % (0-0.5); Lymphocytes Absolute Auto 1.06 K/mm3 (0.9-3.2); Lymphocytes Percent Auto 6.5 % (18.3-44.2); Mean Corpuscular HGB Conc 31.8 g/dl (32-36); Mean Corpuscular Hemoglobin 25.7 pg (26-34); Mean Platelet Volume 9.8 fl (7.4-10.4); Monocytes Absolute Auto 0.8 K/mm3 (0.1-0.6); Monocytes Percent Auto 4.8 % (2.6-8.5); Neutrophils Absolute Auto 12.9 K/mm3 (1.3-6.7); Neutrophils Percent Auto 78.9 % (45.5-73.1); Platelet Count Result 263 k/mm3 (150-375); Red Blood Count 3.42 M/mm3 (4.2-5.4); Red Cell Distribution Width 17.7 % (11.5-14.5); White Blood Count 16.4 K/mm3 (4.5-10.0)
[2024-04-16 04:54] LABS: Anion Gap 9 mmol/L (4-12); Blood Urea Nitrogen 9 mg/dL (7-17); Calcium 8.6 mg/dL (8.4-10.2); Carbon Dioxide 25 mmol/L (22-30); Chloride 102 mmol/L (98-107); Estimated CRCL calculation 195 ml/min; Estimated Glomerular Filt Rate > 60; Glucose 195 mg/dL (65-110); Potassium 4.1 mmol/L (3.4-5.0); Sodium 136 mmol/L (137-145)
[2024-04-16] MEDS: PIPERACILLN/TAZ 3.375GM/NS50ML 3.375 GM/50 ML BAG IVPB ×4 (06:26→23:21)
[2024-04-16 06:46] LABS: Glucose Point of Care 178 mg/dl (65-105)
[2024-04-16] MEDS: oxyCODONE/ACETAMINOPHEN (*CRX) 5-325 MG TABLET 1 TABLET PO ×2 (08:38→12:44)
[2024-04-16] MEDS: PANTOPRAZOLE 40 MG TABLET PO (08:38)
[2024-04-16] MEDS: SERTRALINE HCL 50 MG TABLET PO (08:38)
[2024-04-16] MEDS: POTASSIUM CHLORIDE 20 MEQ ER TABLET PO (08:38)
[2024-04-16] MEDS: ENOXAPARIN 40 MG/0.4 ML SYRINGE SUB-Q (08:39)
--- NOTE | 2024-04-16 10:11 | PM.IMPN ---
Progress Note: A&P Assessment and Plan (1) Anxiety and depression: Code(s): F41.9 - Anxiety disorder, unspecified; F32.A - Depression, unspecified Status: Acute (2) Depression: Code(s): F32.A - Depression, unspecified Status: Acute (3) Acute pancreatitis: Qualifiers: Acute pancreatitis complication: unspecified Pancreatitis type: unspecified pancreatitis type Qualified Code(s): K85.90 - Acute pancreatitis without necrosis or infection, unspecified Code(s): K85.90 - Acute pancreatitis without necrosis or infection, unspecified Status: Acute (4) Cholelithiasis: Qualifiers: Biliary obstruction: with biliary obstruction Cholecystitis presence: without cholecystitis Cholelithiasis location: gallbladder Qualified Code(s): K80.21 - Calculus of gallbladder without cholecystitis with obstruction Code(s): K80.20 - Calculus of gallbladder without cholecystitis without obstruction Status: Chronic Plan Gallstone pancreatitis: Code(s): K85.10 - Biliary acute pancreatitis without necrosis or infection Status: Acute Assessment and Plan: Patient presents with abdominal pain and found to have lipase >40K. CTA chest/abdomen/pelvis shows acute interstitial pancreatitis with prominent nonloculated acute peripancreatic fluid collections and stranding, tiny GS versus porcelain gallbladder with mural calcification along the dependent wall of the otherwise normal GB, no evident choledocholithiasis or intra or extra hepatic biliary ductal dilation and mild dependent atelectasis in the lower lobes. No pulmonary embolism or other acute cardiopulmonary disease. MRCP showing similar findings from the CT scan and no evidence of choledocholithiasis. Patient with GS Pancreatitis. General surgery and GI consulted and appreciate their input. TG 198. Lipase trending downward at 300. TB better at 1.1 and other liver tests normalize Repeat CT A/P (04/11) showing interval progression of non loculated peripancreatic fluid and extensive stranding consistent with acute interstitial pancreatitis Diet started. Continue TPN. Supportive care. Follow LFTs and lipase levels. Cholelithiasis: Qualifiers: Biliary obstruction: with biliary obstruction Cholecystitis presence: without cholecystitis Cholelithiasis location: gallbladder Qualified Code(s): K80.21 - Calculus of gallbladder without cholecystitis with obstruction Code(s): K80.20 - Calculus of gallbladder without cholecystitis without obstruction Status: Chronic Assessment and Plan: As above sepsis Leukocytosis, white blood cell is trending up, patient also has tachycardia tachypnea low-grade fever Patient is afebrile, but leukocytosis trending up. UA shows pyuria cxr:a left lower lobe infiltrate and likely adjacent effusion. CT abdomen pelvis shows no abscess necrosis or hemorrhagic transformation, small amount reactive ascites in the pelvis, small left pleural effusion with partial collapse of left lower lobe Possible reaction to pancreatitis, but also has risks of intra-abdominal infection, currently patient is on TPN that places patient on risk of infection also Pending blood culture, urinalysis Patient is allergic to Levaquin Sepsis likely secondary to UTI and possible pneumonia Continue vancomycin Zosyn 04/16 Transaminitis: Code(s): R74.01 - Elevation of levels of liver transaminase levels Status: Acute Assessment and Plan: As above. Elevated partial thromboplastin time (PTT): Code(s): R79.1 - Abnormal coagulation profile Status: Chronic Assessment and Plan: PTT 197, previously 159 on 06/27/2023. Patient has previously been referred to Hematology but has not follow-up with this. Her mother and maternal grandmother have some form of clotting disorder and are both She has bleeding gums but no miscarriages or early bruising. 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 Oncology/hematology consulted and appreciate their input Abnormal uterine bleeding: Code(s): N93.9 - Abnormal uterine and vaginal bleeding, unspecified Status: Acute Assessment and Plan: Patient reports vaginal bleeding since delivery in February. Hgb 13.2 upon arrival in the ED Pelvic ultrasound was unremarkable. Could be related to her elevated PTT. HH has trended down to 8.4 today but could be related to fluids. director of claims consulted and appreciate their input Hypokalemia: Code(s): E87.6 - Hypokalemia Status: Acute Assessment and Plan: Repeated, potassium still low. Mag 2.2 Replace potassium Replace Phos as well. Subjective Date/time seen: 04/16/24 10:11 Interval history: Patient feels better today but still has severe pain it PCP pump to control the pain. Patient felt nauseous, cannot tolerate diet. Patient vomited once in the morning. Patient has some cough with scant phlegm. Patient afebrile, blood pressure stable, UA shows pyuria and microscopic hematuria, leukocytosis trending down,, hemoglobin 8.8 stable, pending urine culture and blood culture Exam Narrative: GENERAL: Pleasant, in no acute distress. Well-nourished. - EYES: EOMI. Anicteric. - HENT: Moist mucous membranes. - LUNGS: Clear to auscultation bilaterally, no wheezing, rhonchi, or rales. Tachypnea - CARDIOVASCULAR: Regular rate and rhythm. No murmur. No JVD. Tachycardia - ABDOMEN: Soft, diffuse tender and some distended. No palpable masses. - EXTREMITIES: No edema. Peripheral pulses 2+. Non-tender. - NEUROLOGIC: No focal neurological deficits. CN II-XII grossly intact. - PSYCHIATRIC: Awake, Alert and oriented x 3. Appropriate mood and affect. - SKIN: No rashes or lesions. Warm. - LYMPH: No cervical lymphadenopathy. Objective Data Vital Signs Vital Signs: Vital Signs - 24 hr 04/15/24 12:00 04/15/24 12:00 04/15/24 16:00 Temperature 98.7 F 98.5 F Pulse Rate 100 83 80 Respiratory Rate 18 18 Blood Pressure 138/71 124/62 Pulse Oximetry 99 98 Oxygen Delivery 04/15/24 20:00 04/15/24 20:58 04/16/24 00:00 Temperature 98.3 F 98.0 F Pulse Rate 96 91 Respiratory Rate 18 18 Blood Pressure 121/55 L 124/59 L Pulse Oximetry 98 98 Oxygen Delivery Room Air 04/16/24 04:00 04/16/24 08:00 04/16/24 08:07 Temperature 98.1 F 98.0 F Pulse Rate 71 90 Respiratory Rate 18 18 Blood Pressure 122/69 134/65 Pulse Oximetry 91 99 Oxygen Delivery Room Air Intake/Output Intake/Output: Intake & Output 04/13/24 04/14/24 04/15/24 04/16/24 23:59 23:59 23:59 23:59 Intake Total 2429.3 2049.3 3562.5 1966 Balance 2429.3 2049.3 3562.5 1966 Meds/Results Medications: Active Medications Generic Name Dose Route Start Last Admin Trade Name Freq PRN Reason Stop Dose Admin Acetaminophen 650 mg 04/08/24 13:45 Acetaminophen 325 Mg Tablet PO Q4H PRN Fever Acetaminophen 500 mg 04/15/24 11:18 Acetaminophen 500 Mg Tablet PO Q6H PRN Pain Rated 1-3 Dextrose 12.5 gm 04/09/24 18:37 Dextrose 50% 25 Gm/50 Ml Syringe IV PUSH PRN PRN Hypoglycemia Protocol Enoxaparin Sodium 40 mg 04/16/24 09:00 04/16/24 08:39 Enoxaparin 40 Mg/0.4 Ml Syringe SUB-Q 40 mg DAILY JULIANO Administration Glucagon 1 mg 04/09/24 18:37 Glucagon For Inj 1 Mg Vial IM PRN PRN Hypoglycemia Protocol Glucose 15 gm 04/09/24 18:37 Glucose Oral Gel 15 Gm Of Glucse In 37.5 Gm Tube PO PRN PRN Hypoglycemia Protocol Dextrose 1,000 mls @ 100 mls/hr 04/09/24 18:37 Dextrose 5% 1,000 Ml IVPB PRN PRN Hypoglycemia Protocol Dextrose 1,000 mls @ 50 mls/hr 04/11/24 11:47 Dextrose 10% IV CONT .Q20H PRN if PN is interrupted Multivitamins 1.25 ml/ 1,002.5 mls @ 60 mls/hr 04/11/24 14:00 04/16/24 00:29 Multivitamins 1.25 ml/ Amino IV CONT 60 mls/hr Acids/Electrolytes/Dextrose .[id number] JULIANO Administration Protocol Fat Emulsion Intravenous 250 mls @ 20.833 mls/hr 04/11/24 14:00 04/16/24 03:36 Lipids 20% IVPB Infused Q24H JULIANO Infusion Ibuprofen 800 mg in 200 mls @ 400 mls/hr 04/12/24 10:32 04/13/24 05:46 Caldolor 800 Mg/200 Ml IVPB Infused Q6H PRN Infusion Mild Pain (1-3) Vancomycin HCl 1,500 mg in 500 mls @ 250 mls/hr 04/16/24 00:00 04/16/24 02:24 Vancomycin 1,500 Mg/Ns 500 Ml IVPB Infused Q12H JULIANO Infusion Piperacillin/Tazobactam/Dextrose 3.375 gm in 50 mls @ 100 mls/hr 04/15/24 12:00 04/16/24 06:56 Zosyn 3.375 Gm/Ns 50 Ml IVPB Infused Q6H JULIANO Infusion Ibuprofen 600 mg 04/15/24 08:23 04/16/24 03:21 Ibuprofen 600 Mg Tablet PO 600 mg Q6H PRN Administration Toothache Insulin Aspart 2 - 5 units 04/10/24 00:00 04/16/24 06:25 Insulin Aspart (*Bkc) 100 Units/Ml SUB-Q Not Given Q6HR [facility] Protocol Lidocaine 1 patch 04/08/24 19:02 04/11/24 08:47 Lidocaine 5% Patch TRANSDERM 1 patch Q24H PRN Administration back pain Morphine Sulfate 2 mg 04/15/24 11:18 Morphine Sulfate (*Crx) 2 Mg/Ml Inj IV PUSH Q2H PRN Breakthrough Pain Rated 4-6 or NPO Morphine Sulfate 4 mg 04/15/24 11:18 Morphine Sulfate (*Crx) 4 Mg/Ml Inj IV PUSH Q2H PRN Breakthrough Pain Rated 7-10 or NPO Naloxone HCl 0.1 mg 04/15/24 11:18 Naloxone Hcl 0.4 Mg/Ml Vial IV PUSH Q2M PRN Opiate Reversal Ondansetron HCl 4 mg 04/08/24 13:45 04/09/24 15:29 Ondansetron Inj 4 Mg/2 Ml Vial IV PUSH 4 mg Q6H PRN Administration Nausea And Vomiting Oxycodone/Acetaminophen 1 tablet 04/15/24 11:18 04/16/24 08:38 Oxycodone/Acetaminophen (*Crx) 5-325 Mg Tablet PO 1 tablet Q4H PRN Administration Pain Rated 4-6 Oxycodone/Acetaminophen 1 tab 04/15/24 11:18 Oxycodone/Acetaminophen (*Crx) 10-325 Mg Tablet PO Q6H PRN Pain Rated 7-10 Pantoprazole Sodium 40 mg 04/16/24 09:00 04/16/24 08:38 Pantoprazole 40 Mg Tablet PO 40 mg QAM [facility] Administration Polyethylene Glycol 17 gm 04/14/24 13:10 04/16/24 08:39 Polyethylene Glycol 3350 17 Gm Powd.Pack PO Not Given QAM JULIANO Potassium Chloride 20 meq 04/16/24 08:00 04/16/24 08:38 Potassium Chloride 20 Meq Er Tablet PO 20 meq DAILY@0800 JULIANO Administration Senna/Docusate Sodium 2 tab 04/14/24 21:00 04/15/24 21:04 Senna/Docusate Sodium Tablet PO 2 tab HS JULIANO Administration Sertraline HCl 50 mg 04/09/24 09:00 04/16/24 08:38 Sertraline Hcl 50 Mg Tablet PO 50 mg DAILY JULIANO Administration Sodium Chloride 20 ml 04/11/24 14:26 04/16/24 04:34 Central Line Flush IV PUSH 20 ml PRN PRN Administration after blood draws Sodium Chloride 10 ml 04/11/24 14:26 04/16/24 00:29 Central Line Flush IV PUSH 10 ml PRN PRN Administration with TPN bag changes Sodium Chloride 10 ml 04/11/24 22:00 04/16/24 06:26 Central Line Flush IV PUSH 10 ml Q8HR JULIANO Administration Radiology Results: ITS Impressions MRCP 04/09/24 12:03 IMPRESSION: 1. Multiple tiny gallstones in the dependent aspect of the normal gallbladder. 2. Diffuse acute interstitial pancreatitis with prominent nonloculated peripancreatic fluid tracking into the intra and retroperitoneal soft tissue tissues. 3. No intra or extrahepatic biliary ductal dilation or evident choledocholithiasis. 4. Increased signal in the dependent lower lobes which could represent atelectasis or pneumonia. ADDENDUM: 04/09/24 1301 CORRECTION: Incorrect contrast agent is noted in the technique section. The study was performed without and with 16 mL ProHance intravenous contrast. Pelvis Ultrasound 04/09/24 13:37 IMPRESSION: 1. Unremarkable pelvic ultrasound. Chest/Abdomen/Pelvis CTA 04/11/24 12:59 IMPRESSION: 1. No evident pulmonary embolism. Sensitivity mildly decreased in the segmental and more prominently in the subsegmental pulmonary arteries due to is suboptimal opacification of the pulmonary arteries as well as small amount of respiratory and streak artifact. 2. Small left pleural effusion with partial collapse of the left lower lobe and additional atelectasis in the right lower lobe. 3. Interval progression of nonloculated peripancreatic fluid and extensive stranding consistent with acute interstitial pancreatitis. 4. Small amount of ascites in the abdomen and pelvis with increased density of the fluid in the dependent cul-de-sac suggesting complex/exudative ascites which could be seen with small amount of hemoperitoneum or peritonitis. Chest X-Ray 04/14/24 08:29 IMPRESSION: Mild pulmonary vascular congestion with a left lower lobe infiltrate and likely adjacent effusion. Abdomen/Pelvis CT 04/14/24 08:35 IMPRESSION: 1. Continued progression in nonloculated peripancreatic fluid and stranding consistent with acute interstitial pancreatitis with no abscess, necrosis or hemorrhagic transformation. 2. Small amount of likely reactive ascites in the pelvis. 3. Unchanged small left pleural effusion with partial collapse left lower lobe. Labs Labs: Laboratory Results - last 24 hr 04/15/24 04/15/24 04/15/24 12:15 16:42 17:41 WBC RBC Hgb Hct MCV MCH MCHC RDW Plt Count MPV Immature Gran % (Auto) Neut % (Auto) Lymph % (Auto) [place] % (Auto) Eos % (Auto) Baso % (Auto) Lymph # (Auto) [place] # (Auto) Eos # (Auto) Baso # (Auto) Abs Immat Gran (auto) Absolute Neuts (auto) Absolute Nucleated RBC Nucleated RBC % Sodium Potassium Chloride Carbon Dioxide Anion Gap BUN Creatinine Estim Creat Clear Calc Estimated GFR Glucose POC Capillary Glucose 173 H 197 H Calcium Phosphorus C-Reactive Protein Urine Color Yellow Urine Appearance Turbid H Urine pH 5.5 Ur Specific [place] 1.016 Urine Protein 1+ H Urine Glucose (UA) Negative Urine Ketones Negative Ur Blood (Man) 2+ H Urine Nitrate Negative Urine Bilirubin Negative Urine Urobilinogen 1.0 Leukocyte Esterase Rfl 2+ H Urine RBC 11-20 H Urine WBC >100 H Ur Squamous Epith Cells Occasional Urine Bacteria None seen Urine Casts 3-5 04/15/24 04/16/24 04/16/24 23:48 04:33 06:25 WBC 16.4 H RBC 3.42 L Hgb 8.8 L Hct 27.7 L MCV 81.0 MCH 25.7 L MCHC 31.8 L RDW 17.7 H Plt Count 263 MPV 9.8 Immature Gran % (Auto) 8.5 H Neut % (Auto) 78.9 H Lymph % (Auto) 6.5 L [place] % (Auto) 4.8 Eos % (Auto) 0.9 Baso % (Auto) 0.4 Lymph # (Auto) 1.06 [place] # (Auto) 0.8 H Eos # (Auto) 0.2 Baso # (Auto) 0.1 Abs Immat Gran (auto) 1.40 H Absolute Neuts (auto) 12.9 H Absolute Nucleated RBC 0.000 Nucleated RBC % 0.0 Sodium 136 L Potassium 4.1 Chloride 102 Carbon Dioxide 25 Anion Gap 9 BUN 9 Creatinine 0.34 L Estim Creat Clear Calc 195 Estimated GFR > 60 Glucose 195 H POC Capillary Glucose 119 H 178 H Calcium 8.6 Phosphorus 4.0 C-Reactive Protein 19.0 H Urine Color Urine Appearance Urine pH Ur Specific [place] Urine Protein Urine Glucose (UA) Urine Ketones Ur Blood (Man) Urine Nitrate Urine Bilirubin Urine Urobilinogen Leukocyte Esterase Rfl Urine RBC Urine WBC Ur Squamous Epith Cells Urine Bacteria Urine Casts
[2024-04-16 11:29] LABS: Triglycerides 107 mg/dL (<150)
[2024-04-16 11:53] LABS: Glucose Point of Care 196 mg/dl (65-105)
--- NOTE | 2024-04-16 12:03 | P.PNGI_ITS ---
Progress Note: A&P Assessment and Plan (1) Gallstone pancreatitis: Code(s): K85.10 - Biliary acute pancreatitis without necrosis or infection Status: Acute Assessment and Plan: most recent CT scan worsening nonloculated peripancreatic fluid and extensive stranding consistent with acute interstitial pancreatitis but no pseudocyst or necrosis. eating more but bloated this morning and nauseous, ok to slow down and eat small meals plan is to discontinue TPN soon (2) Upper abdominal pain: Code(s): R10.10 - Upper abdominal pain, unspecified Status: Acute Assessment and Plan: PAIL TESTER was discontinued pain meds prn now (3) Transaminitis: Code(s): R74.01 - Elevation of levels of liver transaminase levels Status: Acute Assessment and Plan: from pancreatitis no need of ercp (4) Leukocytosis: Code(s): D72.829 - Elevated white blood cell count, unspecified Status: Acute Assessment and Plan: this also could be stress response or from pancreatitis (5) Elevated partial thromboplastin time (PTT): Code(s): R79.1 - Abnormal coagulation profile Status: Chronic Assessment and Plan: per technical expert with work up in progress, ? factor 8 vs von Willebrand (6) Nausea: Code(s): R11.0 - Nausea Status: Acute Subjective Date/time seen: 04/16/24 12:03 Interval history: was nauseous after eating but pain better- PAIL TESTER pump discontinued Review of Systems 2 Review of Systems: All systems reviewed & are unremarkable except as noted in HPI and below Exam Const: General: no acute distress Orientation/consciousness: patient oriented x3 HENMT: Face/Nose/Sinus: Normal nares present Eyes: Sclera: sclerae normal Neck: Neck: supple Resp: Effort & Inspection: normal respiratory effort Cardio: Rate: regular rate GI: Inspection: non-distended GI Palp: Yes Soft to palpation, Yes Tenderness to palpation present (GI) (diffusely tender- similar) and No Guarding due to palpation present (GI) Skin: General skin exam: no rashes or lesions noted Neuro: General: moves all extremities Extrem: General: no pedal edema and no calf tenderness Psych: Mental Status: mental status grossly normal Objective Data Vital Signs Vital Signs: Vital Signs - 24 hr 04/15/24 16:00 04/15/24 20:00 04/15/24 20:58 Temperature 98.5 F 98.3 F Pulse Rate 80 96 Respiratory Rate 18 18 Blood Pressure 124/62 121/55 L Pulse Oximetry 98 98 Oxygen Delivery Room Air 04/16/24 00:00 04/16/24 04:00 04/16/24 08:00 Temperature 98.0 F 98.1 F 98.0 F Pulse Rate 91 71 90 Respiratory Rate 18 18 18 Blood Pressure 124/59 L 122/69 134/65 Pulse Oximetry 98 91 99 Oxygen Delivery 04/16/24 08:07 04/16/24 11:59 Temperature 97.6 F Pulse Rate 98 Respiratory Rate 18 Blood Pressure 120/63 Pulse Oximetry 99 Oxygen Delivery Room Air Intake/Output Intake/Output: Intake & Output 04/13/24 04/14/24 04/15/24 04/16/24 23:59 23:59 23:59 23:59 Intake Total 2429.3 2049.3 3562.5 1967 Balance 2429.3 2049.3 3562.5 1966 Meds/Results Medications: Active Medications Generic Name Dose Route Start Last Admin Trade Name Freq PRN Reason Stop Dose Admin Acetaminophen 650 mg 04/08/24 13:45 Acetaminophen 325 Mg Tablet PO Q4H PRN Fever Acetaminophen 500 mg 04/15/24 11:18 Acetaminophen 500 Mg Tablet PO Q6H PRN Pain Rated 1-3 Dextrose 12.5 gm 04/09/24 18:37 Dextrose 50% 25 Gm/50 Ml Syringe IV PUSH PRN PRN Hypoglycemia Protocol Enoxaparin Sodium 40 mg 04/16/24 09:00 04/16/24 08:39 Enoxaparin 40 Mg/0.4 Ml Syringe SUB-Q 40 mg DAILY JULIANO Administration Glucagon 1 mg 04/09/24 18:37 Glucagon For Inj 1 Mg Vial IM PRN PRN Hypoglycemia Protocol Glucose 15 gm 04/09/24 18:37 Glucose Oral Gel 15 Gm Of Glucse In 37.5 Gm Tube PO PRN PRN Hypoglycemia Protocol Dextrose 1,000 mls @ 100 mls/hr 04/09/24 18:37 Dextrose 5% 1,000 Ml IVPB PRN PRN Hypoglycemia Protocol Dextrose 1,000 mls @ 50 mls/hr 04/11/24 11:47 Dextrose 10% IV CONT .Q20H PRN if PN is interrupted Multivitamins 1.25 ml/ 1,002.5 mls @ 60 mls/hr 04/11/24 14:00 04/16/24 00:29 Multivitamins 1.25 ml/ Amino IV CONT 60 mls/hr Acids/Electrolytes/Dextrose .[id number] JULIANO Administration Protocol Fat Emulsion Intravenous 250 mls @ 20.833 mls/hr 04/11/24 14:00 04/16/24 03:36 Lipids 20% IVPB Infused Q24H JULIANO Infusion Ibuprofen 800 mg in 200 mls @ 400 mls/hr 04/12/24 10:32 04/13/24 05:46 Caldolor 800 Mg/200 Ml IVPB Infused Q6H PRN Infusion Mild Pain (1-3) Vancomycin HCl 1,500 mg in 500 mls @ 250 mls/hr 04/16/24 00:00 04/16/24 02:24 Vancomycin 1,500 Mg/Ns 500 Ml IVPB Infused Q12H JULIANO Infusion Piperacillin/Tazobactam/Dextrose 3.375 gm in 50 mls @ 100 mls/hr 04/15/24 12:00 04/16/24 06:56 Zosyn 3.375 Gm/Ns 50 Ml IVPB Infused Q6H JULIANO Infusion Ibuprofen 600 mg 04/15/24 08:23 04/16/24 03:21 Ibuprofen 600 Mg Tablet PO 600 mg Q6H PRN Administration Toothache Insulin Aspart 2 - 5 units 04/10/24 00:00 04/16/24 06:25 Insulin Aspart (*Bkc) 100 Units/Ml SUB-Q Not Given Q6HR [facility] Protocol Lidocaine 1 patch 04/08/24 19:02 04/11/24 08:47 Lidocaine 5% Patch TRANSDERM 1 patch Q24H PRN Administration back pain Miscellaneous Information 1 each 04/16/24 00:01 Clinamix Needs To Be Renewed Or It Will Automatically Discontinue. XX 05/16/24 00:00 CLARIFY [facility] Morphine Sulfate 2 mg 04/15/24 11:18 Morphine Sulfate (*Crx) 2 Mg/Ml Inj IV PUSH Q2H PRN Breakthrough Pain Rated 4-6 or NPO Morphine Sulfate 4 mg 04/15/24 11:18 Morphine Sulfate (*Crx) 4 Mg/Ml Inj IV PUSH Q2H PRN Breakthrough Pain Rated 7-10 or NPO Naloxone HCl 0.1 mg 04/15/24 11:18 Naloxone Hcl 0.4 Mg/Ml Vial IV PUSH Q2M PRN Opiate Reversal Ondansetron HCl 4 mg 04/08/24 13:45 04/09/24 15:29 Ondansetron Inj 4 Mg/2 Ml Vial IV PUSH 4 mg Q6H PRN Administration Nausea And Vomiting Oxycodone/Acetaminophen 1 tablet 04/15/24 11:18 04/16/24 08:38 Oxycodone/Acetaminophen (*Crx) 5-325 Mg Tablet PO 1 tablet Q4H PRN Administration Pain Rated 4-6 Oxycodone/Acetaminophen 1 tab 04/15/24 11:18 Oxycodone/Acetaminophen (*Crx) 10-325 Mg Tablet PO Q6H PRN Pain Rated 7-10 Pantoprazole Sodium 40 mg 04/16/24 09:00 04/16/24 08:38 Pantoprazole 40 Mg Tablet PO 40 mg QAM JULIANO Administration Polyethylene Glycol 17 gm 04/14/24 13:10 04/16/24 08:39 Polyethylene Glycol 3350 17 Gm Powd.Pack PO Not Given QAM JULIANO Potassium Chloride 20 meq 04/16/24 08:00 04/16/24 08:38 Potassium Chloride 20 Meq Er Tablet PO 20 meq DAILY@0800 JULIANO Administration Senna/Docusate Sodium 2 tab 04/14/24 21:00 04/15/24 21:04 Senna/Docusate Sodium Tablet PO 2 tab HS JULIANO Administration Sertraline HCl 50 mg 04/09/24 09:00 04/16/24 08:38 Sertraline Hcl 50 Mg Tablet PO 50 mg DAILY JULIANO Administration Sodium Chloride 20 ml 04/11/24 14:26 04/16/24 04:34 Central Line Flush IV PUSH 20 ml PRN PRN Administration after blood draws Sodium Chloride 10 ml 04/11/24 14:26 04/16/24 00:29 Central Line Flush IV PUSH 10 ml PRN PRN Administration with TPN bag changes Sodium Chloride 10 ml 04/11/24 22:00 04/16/24 06:26 Central Line Flush IV PUSH 10 ml Q8HR JULIANO Administration Radiology Results: ITS Impressions MRCP 04/09/24 12:03 IMPRESSION: 1. Multiple tiny gallstones in the dependent aspect of the normal gallbladder. 2. Diffuse acute interstitial pancreatitis with prominent nonloculated peripancreatic fluid tracking into the intra and retroperitoneal soft tissue tissues. 3. No intra or extrahepatic biliary ductal dilation or evident ch oledocholithiasis. 4. Increased signal in the dependent lower lobes which could represent atelectasis or pneumonia. ADDENDUM: 04/09/24 1301 CORRECTION: Incorrect contrast agent is noted in the technique section. The study was performed without and with 16 mL ProHance intravenous contrast. Pelvis Ultrasound 04/09/24 13:37 IMPRESSION: 1. Unremarkable pelvic ultrasound. Chest/Abdomen/Pelvis CTA 04/11/24 12:59 IMPRESSION: 1. No evident pulmonary embolism. Sensitivity mildly decreased in the segmental and more prominently in the subsegmental pulmonary arteries due to is suboptimal opacification of the pulmonary arteries as well as small amount of respiratory and streak artifact. 2. Small left pleural effusion with partial collapse of the left lower lobe and additional atelectasis in the right lower lobe. 3. Interval progression of nonloculated peripancreatic fluid and extensive stranding consistent with acute interstitial pancreatitis. 4. Small amount of ascites in the abdomen and pelvis with increased density of the fluid in the dependent cul-de-sac suggesting complex/exudative ascites which could be seen with small amount of hemoperitoneum or peritonitis. Chest X-Ray 04/14/24 08:29 IMPRESSION: Mild pulmonary vascular congestion with a left lower lobe infiltrate and likely adjacent effusion. Abdomen/Pelvis CT 04/14/24 08:35 IMPRESSION: 1. Continued progression in nonloculated peripancreatic fluid and stranding consistent with acute interstitial pancreatitis with no abscess, necrosis or hemorrhagic transformation. 2. Small amount of likely reactive ascites in the pelvis. 3. Unchanged small left pleural effusion with partial collapse left lower lobe. Labs Labs: Laboratory Results - last 24 hr 04/15/24 04/15/24 04/15/24 12:15 16:42 17:41 WBC RBC Hgb Hct MCV MCH MCHC RDW Plt Count MPV Immature Gran % (Auto) Neut % (Auto) Lymph % (Auto) [place] % (Auto) Eos % (Auto) Baso % (Auto) Lymph # (Auto) [place] # (Auto) Eos # (Auto) Baso # (Auto) Abs Immat Gran (auto) Absolute Neuts (auto) Absolute Nucleated RBC Nucleated RBC % Sodium Potassium Chloride Carbon Dioxide Anion Gap BUN Creatinine Estim Creat Clear Calc Estimated GFR Glucose POC Capillary Glucose 173 H 197 H Calcium Phosphorus C-Reactive Protein Triglycerides Urine Color Yellow Urine Appearance Turbid H Urine pH 5.5 Ur Specific [place] 1.016 Urine Protein 1+ H Urine Glucose (UA) Negative Urine Ketones Negative Ur Blood (Man) 2+ H Urine Nitrate Negative Urine Bilirubin Negative Urine Urobilinogen 1.0 Leukocyte Esterase Rfl 2+ H Urine RBC 11-20 H Urine WBC >100 H Ur Squamous Epith Cells Occasional Urine Bacteria None seen Urine Casts 3-5 04/15/24 04/16/24 04/16/24 23:48 04:26 04:33 WBC 16.4 H RBC 3.42 L Hgb 8.8 L Hct 27.7 L MCV 81.0 MCH 25.7 L MCHC 31.8 L RDW 17.7 H Plt Count 263 MPV 9.8 Immature Gran % (Auto) 8.5 H Neut % (Auto) 78.9 H Lymph % (Auto) 6.5 L [place] % (Auto) 4.8 Eos % (Auto) 0.9 Baso % (Auto) 0.4 Lymph # (Auto) 1.06 [place] # (Auto) 0.8 H Eos # (Auto) 0.2 Baso # (Auto) 0.1 Abs Immat Gran (auto) 1.40 H Absolute Neuts (auto) 12.9 H Absolute Nucleated RBC 0.000 Nucleated RBC % 0.0 Sodium 136 L Potassium 4.1 Chloride 102 Carbon Dioxide 25 Anion Gap 9 BUN 9 Creatinine 0.34 L Estim Creat Clear Calc 195 Estimated GFR > 60 Glucose 195 H POC Capillary Glucose 119 H Calcium 8.6 Phosphorus 4.0 C-Reactive Protein 19.0 H Triglycerides 107 Urine Color Urine Appearance Urine pH Ur Specific [place] Urine Protein Urine Glucose (UA) Urine Ketones Ur Blood (Man) Urine Nitrate Urine Bilirubin Urine Urobilinogen Leukocyte Esterase Rfl Urine RBC Urine WBC Ur Squamous Epith Cells Urine Bacteria Urine Casts 04/16/24 04/16/24 06:25 11:47 WBC RBC Hgb Hct MCV MCH MCHC RDW Plt Count MPV Immature Gran % (Auto) Neut % (Auto) Lymph % (Auto) [place] % (Auto) Eos % (Auto) Baso % (Auto) Lymph # (Auto) [place] # (Auto) Eos # (Auto) Baso # (Auto) Abs Immat Gran (auto) Absolute Neuts (auto) Absolute Nucleated RBC Nucleated RBC % Sodium Potassium Chloride Carbon Dioxide Anion Gap BUN Creatinine Estim Creat Clear Calc Estimated GFR Glucose POC Capillary Glucose 178 H 196 H Calcium Phosphorus C-Reactive Protein Triglycerides Urine Color Urine Appearance Urine pH Ur Specific [place] Urine Protein Urine Glucose (UA) Urine Ketones Ur Blood (Man) Urine Nitrate Urine Bilirubin Urine Urobilinogen Leukocyte Esterase Rfl Urine RBC Urine WBC Ur Squamous Epith Cells Urine Bacteria Urine Casts
--- NOTE | 2024-04-16 13:16 | P.PNGS_ITS ---
Progress Note: A&P Assessment and Plan (1) Leukocytosis: Code(s): D72.829 - Elevated white blood cell count, unspecified Status: Acute Assessment and Plan: * Slightly improved, likely reactive secondary to pancreatitis. (2) Acute pancreatitis: Qualifiers: Acute pancreatitis complication: unspecified Pancreatitis type: unspecified pancreatitis type Qualified Code(s): K85.90 - Acute pancreatitis without necrosis or infection, unspecified Code(s): K85.90 - Acute pancreatitis without necrosis or infection, unspecified Status: Acute Assessment and Plan: * Slowly improving but quite prolonged. Continue low fat diet. Increase activity. * Stop TPN today. (3) Cholelithiasis: Qualifiers: Biliary obstruction: with biliary obstruction Cholecystitis presence: without cholecystitis Cholelithiasis location: gallbladder Qualified Code(s): K80.21 - Calculus of gallbladder without cholecystitis with obstruction Code(s): K80.20 - Calculus of gallbladder without cholecystitis without obstruction Status: Chronic Assessment and Plan: No acute cholecystitis noted but will eventually need laparoscopic cholecystectomy as gallstones are likely the cause of her acute pancreatitis (4) Elevated partial thromboplastin time (PTT): Code(s): R79.1 - Abnormal coagulation profile Status: Chronic Assessment and Plan: Evaluation underway, most likely would seem to be lupus anticoagulant. Subjective Subjective Date/Time Seen: 04/16/24 13:16 Interval history: Bowels moving. Slight nausea at times with eating, but no vomiting. Pain improving slowly. Exam GI: Inspection: non-distended GI Palp: Yes Soft to palpation, Yes Tenderness to palpation present (GI) (epigastric), No Guarding due to palpation present (GI), No Palpable mass present and No Rebound tenderness present Auscultation: normal bowel sounds Objective Data Vital Signs Vital Signs: Vital Signs - 24 hr 04/15/24 16:00 04/15/24 20:00 04/15/24 20:58 Temperature 98.5 F 98.3 F Pulse Rate 80 96 Respiratory Rate 18 18 Blood Pressure 124/62 121/55 L Pulse Oximetry 98 98 Oxygen Delivery Room Air 04/16/24 00:00 04/16/24 04:00 04/16/24 08:00 Temperature 98.0 F 98.1 F 98.0 F Pulse Rate 91 71 90 Respiratory Rate 18 18 18 Blood Pressure 124/59 L 122/69 134/65 Pulse Oximetry 98 91 99 Oxygen Delivery 04/16/24 08:07 04/16/24 11:59 04/16/24 12:00 Temperature 97.6 F 97.6 F Pulse Rate 98 85 Respiratory Rate 18 18 Blood Pressure 120/63 120/63 Pulse Oximetry 99 99 Oxygen Delivery Room Air Intake/Output Intake/Output: Intake & Output 04/13/24 04/14/24 04/15/24 04/16/24 23:59 23:59 23:59 23:59 Intake Total 2429.3 2049.3 3562.5 2227 Balance 2429.3 2049.3 3562.5 2227 Meds/Results Medications: Active Medications Generic Name Dose Route Start Last Admin Trade Name Freq PRN Reason Stop Dose Admin Acetaminophen 650 mg 04/08/24 13:45 Acetaminophen 325 Mg Tablet PO Q4H PRN Fever Acetaminophen 500 mg 04/15/24 11:18 Acetaminophen 500 Mg Tablet PO Q6H PRN Pain Rated 1-3 Dextrose 12.5 gm 04/09/24 18:37 Dextrose 50% 25 Gm/50 Ml Syringe IV PUSH PRN PRN Hypoglycemia Protocol Enoxaparin Sodium 40 mg 04/16/24 09:00 04/16/24 08:39 Enoxaparin 40 Mg/0.4 Ml Syringe SUB-Q 40 mg DAILY JULIANO Administration Glucagon 1 mg 04/09/24 18:37 Glucagon For Inj 1 Mg Vial IM PRN PRN Hypoglycemia Protocol Glucose 15 gm 04/09/24 18:37 Glucose Oral Gel 15 Gm Of Glucse In 37.5 Gm Tube PO PRN PRN Hypoglycemia Protocol Dextrose 1,000 mls @ 100 mls/hr 04/09/24 18:37 Dextrose 5% 1,000 Ml IVPB PRN PRN Hypoglycemia Protocol Dextrose 1,000 mls @ 50 mls/hr 04/11/24 11:47 Dextrose 10% IV CONT .Q20H PRN if PN is interrupted Multivitamins 1.25 ml/ 1,002.5 mls @ 60 mls/hr 04/11/24 14:00 04/16/24 00:29 Multivitamins 1.25 ml/ Amino IV CONT 60 mls/hr Acids/Electrolytes/Dextrose .[id number] JULIANO Administration Protocol Fat Emulsion Intravenous 250 mls @ 20.833 mls/hr 04/11/24 14:00 04/16/24 03:36 Lipids 20% IVPB Infused Q24H JULIANO Infusion Ibuprofen 800 mg in 200 mls @ 400 mls/hr 04/12/24 10:32 04/13/24 05:46 Caldolor 800 Mg/200 Ml IVPB Infused Q6H PRN Infusion Mild Pain (1-3) Vancomycin HCl 1,500 mg in 500 mls @ 250 mls/hr 04/16/24 00:00 04/16/24 12:41 Vancomycin 1,500 Mg/Ns 500 Ml IVPB 250 mls/hr Q12H JULIANO Administration Piperacillin/Tazobactam/Dextrose 3.375 gm in 50 mls @ 100 mls/hr 04/15/24 12:00 04/16/24 12:08 Zosyn 3.375 Gm/Ns 50 Ml IVPB 100 mls/hr Q6H JULIANO Administration Ibuprofen 600 mg 04/15/24 08:23 04/16/24 03:21 Ibuprofen 600 Mg Tablet PO 600 mg Q6H PRN Administration Toothache Insulin Aspart 2 - 5 units 04/10/24 00:00 04/16/24 12:07 Insulin Aspart (*Bkc) 100 Units/Ml SUB-Q Not Given Q6HR [facility] Protocol Lidocaine 1 patch 04/08/24 19:02 04/11/24 08:47 Lidocaine 5% Patch TRANSDERM 1 patch Q24H PRN Administration back pain Miscellaneous Information 1 each 04/16/24 00:01 Clinamix Needs To Be Renewed Or It Will Automatically Discontinue. XX 05/16/24 00:00 [facility]IFY [facility] Morphine Sulfate 2 mg 04/15/24 11:18 Morphine Sulfate (*Crx) 2 Mg/Ml Inj IV PUSH Q2H PRN Breakthrough Pain Rated 4-6 or NPO Morphine Sulfate 4 mg 04/15/24 11:18 Morphine Sulfate (*Crx) 4 Mg/Ml Inj IV PUSH Q2H PRN Breakthrough Pain Rated 7-10 or NPO Naloxone HCl 0.1 mg 04/15/24 11:18 Naloxone Hcl 0.4 Mg/Ml Vial IV PUSH Q2M PRN Opiate Reversal Ondansetron HCl 4 mg 04/08/24 13:45 04/09/24 15:29 Ondansetron Inj 4 Mg/2 Ml Vial IV PUSH 4 mg Q6H PRN Administration Nausea And Vomiting Oxycodone/Acetaminophen 1 tablet 04/15/24 11:18 04/16/24 12:44 Oxycodone/Acetaminophen (*Crx) 5-325 Mg Tablet PO 1 tablet Q4H PRN Administration Pain Rated 4-6 Oxycodone/Acetaminophen 1 tab 04/15/24 11:18 Oxycodone/Acetaminophen (*Crx) 10-325 Mg Tablet PO Q6H PRN Pain Rated 7-10 Pantoprazole Sodium 40 mg 04/16/24 09:00 04/16/24 08:38 Pantoprazole 40 Mg Tablet PO 40 mg QAM JULIANO Administration Polyethylene Glycol 17 gm 04/14/24 13:10 04/16/24 08:39 Polyethylene Glycol 3350 17 Gm Powd.Pack PO Not Given QAM JULIANO Potassium Chloride 20 meq 04/16/24 08:00 04/16/24 08:38 Potassium Chloride 20 Meq Er Tablet PO 20 meq DAILY@0800 JULIANO Administration Senna/Docusate Sodium 2 tab 04/14/24 21:00 04/15/24 21:04 Senna/Docusate Sodium Tablet PO 2 tab HS JULIANO Administration Sertraline HCl 50 mg 04/09/24 09:00 04/16/24 08:38 Sertraline Hcl 50 Mg Tablet PO 50 mg DAILY JULIANO Administration Sodium Chloride 20 ml 04/11/24 14:26 04/16/24 04:34 Central Line Flush IV PUSH 20 ml PRN PRN Administration after blood draws Sodium Chloride 10 ml 04/11/24 14:26 04/16/24 00:29 Central Line Flush IV PUSH 10 ml PRN PRN Administration with TPN bag changes Sodium Chloride 10 ml 04/11/24 22:00 04/16/24 06:26 Central Line Flush IV PUSH 10 ml Q8HR JULIANO Administration Radiology Results: ITS Impressions MRCP 04/09/24 12:03 IMPRESSION: 1. Multiple tiny gallstones in the dependent aspect of the normal gallbladder. 2. Diffuse acute interstitial pancreatitis with prominent nonloculated peripancreatic fluid tracking into the intra and retroperitoneal soft tissue tissues. 3. No intra or extrahepatic biliary ductal dilation or evident choledocholithiasis. 4. Increased signal in the dependent lower lobes which could represent atelectasis or pneumonia. ADDENDUM: 04/09/24 1301 CORRECTION: Incorrect contrast agent is noted in the technique section. The study was performed without and with 16 mL ProHance intravenous contrast. Pelvis Ultrasound 04/09/24 13:37 IMPRESSION: 1. Unremarkable pelvic ultrasound. Chest/Abdomen/Pelvis CTA 04/11/24 12:59 IMPRESSION: 1. No evident pulmonary embolism. Sensitivity mildly decreased in the segmental and more prominently in the subsegmental pulmonary arteries due to is suboptimal opacification of the pulmonary arteries as well as small amount of respiratory and streak artifact. 2. Small left pleural effusion with partial collapse of the left lower lobe and additional atelectasis in the right lower lobe. 3. Interval progression of nonloculated peripancreatic fluid and extensive stranding consistent with acute interstitial pancreatitis. 4. Small amount of ascites in the abdomen and pelvis with increased density of the fluid in the dependent cul-de-sac suggesting complex/exudative ascites which could be seen with small amount of hemoperitoneum or peritonitis. Chest X-Ray 04/14/24 08:29 IMPRESSION: Mild pulmonary vascular congestion with a left lower lobe infiltrate and likely adjacent effusion. Abdomen/Pelvis CT 04/14/24 08:35 IMPRESSION: 1. Continued progression in nonloculated peripancreatic fluid and stranding consistent with acute interstitial pancreatitis with no abscess, necrosis or hemorrhagic transformation. 2. Small amount of likely reactive ascites in the pelvis. 3. Unchanged small left pleural effusion with partial collapse left lower lobe. Labs Labs: Laboratory Results - last 24 hr 04/15/24 04/15/24 04/15/24 16:42 17:41 23:48 WBC RBC Hgb Hct MCV MCH MCHC RDW Plt Count MPV Immature Gran % (Auto) Neut % (Auto) Lymph % (Auto) [place] % (Auto) Eos % (Auto) Baso % (Auto) Lymph # (Auto) [place] # (Auto) Eos # (Auto) Baso # (Auto) Abs Immat Gran (auto) Absolute Neuts (auto) Absolute Nucleated RBC Nucleated RBC % Sodium Potassium Chloride Carbon Dioxide Anion Gap BUN Creatinine Estim Creat Clear Calc Estimated GFR Glucose POC Capillary Glucose 197 H 119 H Calcium Phosphorus C-Reactive Protein Triglycerides Urine Color Yellow Urine Appearance Turbid H Urine pH 5.5 Ur Specific [place] 1.016 Urine Protein 1+ H Urine Glucose (UA) Negative Urine Ketones Negative Ur Blood (Man) 2+ H Urine Nitrate Negative Urine Bilirubin Negative Urine Urobilinogen 1.0 Leukocyte Esterase Rfl 2+ H Urine RBC 11-20 H Urine WBC >100 H Ur Squamous Epith Cells Occasional Urine Bacteria None seen Urine Casts 3-5 04/16/24 04/16/24 04/16/24 04:26 04:33 06:25 WBC 16.4 H RBC 3.42 L Hgb 8.8 L Hct 27.7 L MCV 81.0 MCH 25.7 L MCHC 31.8 L RDW 17.7 H Plt Count 263 MPV 9.8 Immature Gran % (Auto) 8.5 H Neut % (Auto) 78.9 H Lymph % (Auto) 6.5 L [place] % (Auto) 4.8 Eos % (Auto) 0.9 Baso % (Auto) 0.4 Lymph # (Auto) 1.06 [place] # (Auto) 0.8 H Eos # (Auto) 0.2 Baso # (Auto) 0.1 Abs Immat Gran (auto) 1.40 H Absolute Neuts (auto) 12.9 H Absolute Nucleated RBC 0.000 Nucleated RBC % 0.0 Sodium 136 L Potassium 4.1 Chloride 102 Carbon Dioxide 25 Anion Gap 9 BUN 9 Creatinine 0.34 L Estim Creat Clear Calc 195 Estimated GFR > 60 Glucose 195 H POC Capillary Glucose 178 H Calcium 8.6 Phosphorus 4.0 C-Reactive Protein 19.0 H Triglycerides 107 Urine Color Urine Appearance Urine pH Ur Specific [place] Urine Protein Urine Glucose (UA) Urine Ketones Ur Blood (Man) Urine Nitrate Urine Bilirubin Urine Urobilinogen Leukocyte Esterase Rfl Urine RBC Urine WBC Ur Squamous Epith Cells Urine Bacteria Urine Casts 04/16/24 11:47 WBC RBC Hgb Hct MCV MCH MCHC RDW Plt Count MPV Immature Gran % (Auto) Neut % (Auto) Lymph % (Auto) [place] % (Auto) Eos % (Auto) Baso % (Auto) Lymph # (Auto) [place] # (Auto) Eos # (Auto) Baso # (Auto) Abs Immat Gran (auto) Absolute Neuts (auto) Absolute Nucleated RBC Nucleated RBC % Sodium Potassium Chloride Carbon Dioxide Anion Gap BUN Creatinine Estim Creat Clear Calc Estimated GFR Glucose POC Capillary Glucose 196 H Calcium Phosphorus C-Reactive Protein Triglycerides Urine Color Urine Appearance Urine pH Ur Specific [place] Urine Protein Urine Glucose (UA) Urine Ketones Ur Blood (Man) Urine Nitrate Urine Bilirubin Urine Urobilinogen Leukocyte Esterase Rfl Urine RBC Urine WBC Ur Squamous Epith Cells Urine Bacteria Urine Casts
[2024-04-16 16:27] LABS: Glucose Point of Care 154 mg/dl (65-105)
[2024-04-16] MEDS: SENNA/DOCUSATE SODIUM TABLET 2 TAB PO (21:21)
[2024-04-16] MEDS: oxyCODONE/ACETAMINOPHEN (*CRX) 10-325 MG TABLET 1 TAB PO (21:21)
[2024-04-16 23:42] LABS: Vancomycin Trough 5.7 ug/mL (10.0-20.0)
[2024-04-17] MEDS: VANCOMYCIN 1,750 MG/NS 500 ML 1,750 MG/500 ML BAG 250 MG IVPB ×3 (00:38→15:59)
[2024-04-17 00:44] VITALS: BP 113/63; PULSE 99; RESP 16; TEMP 36.4; O2SAT 99
[2024-04-17 00:52] LABS: Glucose Point of Care 106 mg/dl (65-105)
[2024-04-17] MEDS: oxyCODONE/ACETAMINOPHEN (*CRX) 10-325 MG TABLET 1 TAB PO ×2 (04:04→21:14)
[2024-04-17] MEDS: IBUPROFEN 600 MG TABLET PO ×3 (04:04→16:33)
[2024-04-17 05:01] LABS: Basophils Percent Auto 0.2 % (0.2-1.2); Eosinophils Absolute Auto 0.1 K/mm3 (0-0.3); Eosinophils Percent Auto 0.8 % (0-4.4); Hematocrit 27.1 % (37.0-47.0); Hemoglobin 8.2 g/dL (12.0-15.0); Immature Granulocyte Absolute 0.94 K/mm3 (0.00-0.031); Lymphocytes Absolute Auto 1.64 K/mm3 (0.9-3.2); Lymphocytes Percent Auto 10.5 % (18.3-44.2); Mean Corpuscular HGB Conc 30.3 g/dl (32-36); Mean Corpuscular Hemoglobin 24.9 pg (26-34); Mean Corpuscular Volume 82.4 fl (80-100); Mean Platelet Volume 9.9 fl (7.4-10.4); Monocytes Absolute Auto 0.7 K/mm3 (0.1-0.6); Monocytes Percent Auto 4.5 % (2.6-8.5); Neutrophils Absolute Auto 12.2 K/mm3 (1.3-6.7); Nucleated Red Blood Cells Perc 0.2 % (0.0-0.2); Platelet Count Result 253 k/mm3 (150-375); Red Blood Count 3.29 M/mm3 (4.2-5.4); Red Cell Distribution Width 17.5 % (11.5-14.5); White Blood Count 15.7 K/mm3 (4.5-10.0)
[2024-04-17 05:05] LABS: Anion Gap 10 mmol/L (4-12); Blood Urea Nitrogen 11 mg/dL (7-17); Calcium 8.5 mg/dL (8.4-10.2); Carbon Dioxide 25 mmol/L (22-30); Chloride 103 mmol/L (98-107); Estimated CRCL calculation 145 ml/min; Estimated Glomerular Filt Rate > 60; Glucose 111 mg/dL (65-110); Phosphorus 5.1 mg/dL (2.5-4.5); Potassium 3.8 mmol/L (3.4-5.0); Sodium 138 mmol/L (137-145)
[2024-04-17] MEDS: CENTRAL LINE FLUSH 10 ML IV PUSH ×2 (05:40→16:04)
[2024-04-17] MEDS: PIPERACILLN/TAZ 3.375GM/NS50ML 3.375 GM/50 ML BAG IVPB ×3 (05:40→18:04)
[2024-04-17 05:54] VITALS: BP 118/67; PULSE 100; RESP 14; TEMP 36.5; O2SAT 98
[2024-04-17 05:57] LABS: Glucose Point of Care 101 mg/dl (65-105)
[2024-04-17 08:00] VITALS: BP 134/72; PULSE 100; RESP 20; TEMP 36.7; O2SAT 99
--- NOTE | 2024-04-17 08:26 | PM.IMPN ---
Progress Note: A&P Assessment and Plan (1) Anxiety and depression: Code(s): F41.9 - Anxiety disorder, unspecified; F32.A - Depression, unspecified Status: Acute (2) Depression: Code(s): F32.A - Depression, unspecified Status: Acute (3) Acute pancreatitis: Qualifiers: Acute pancreatitis complication: unspecified Pancreatitis type: unspecified pancreatitis type Qualified Code(s): K85.90 - Acute pancreatitis without necrosis or infection, unspecified Code(s): K85.90 - Acute pancreatitis without necrosis or infection, unspecified Status: Acute (4) Cholelithiasis: Qualifiers: Biliary obstruction: with biliary obstruction Cholecystitis presence: without cholecystitis Cholelithiasis location: gallbladder Qualified Code(s): K80.21 - Calculus of gallbladder without cholecystitis with obstruction Code(s): K80.20 - Calculus of gallbladder without cholecystitis without obstruction Status: Chronic Plan Gallstone pancreatitis: Code(s): K85.10 - Biliary acute pancreatitis without necrosis or infection Status: Acute Assessment and Plan: Patient presents with abdominal pain and found to have lipase >40K. CTA chest/abdomen/pelvis shows acute interstitial pancreatitis with prominent nonloculated acute peripancreatic fluid collections and stranding, tiny GS versus porcelain gallbladder with mural calcification along the dependent wall of the otherwise normal GB, no evident choledocholithiasis or intra or extra hepatic biliary ductal dilation and mild dependent atelectasis in the lower lobes. No pulmonary embolism or other acute cardiopulmonary disease. MRCP showing similar findings from the CT scan and no evidence of choledocholithiasis. Patient with GS Pancreatitis. General surgery and GI consulted and appreciate their input. TG 198. Lipase trending downward at 300. TB better at 1.1 and other liver tests normalize Repeat CT A/P (04/11) showing interval progression of non loculated peripancreatic fluid and extensive stranding consistent with acute interstitial pancreatitis Diet started. Continue TPN. Supportive care. Follow LFTs and lipase levels. Cholelithiasis: Qualifiers: Biliary obstruction: with biliary obstruction Cholecystitis presence: without cholecystitis Cholelithiasis location: gallbladder Qualified Code(s): K80.21 - Calculus of gallbladder without cholecystitis with obstruction Code(s): K80.20 - Calculus of gallbladder without cholecystitis without obstruction Status: Chronic Assessment and Plan: As above sepsis Leukocytosis, white blood cell is trending up, patient also has tachycardia tachypnea low-grade fever Patient is afebrile, but leukocytosis trending up. UA shows pyuria cxr:a left lower lobe infiltrate and likely adjacent effusion. CT abdomen pelvis shows no abscess necrosis or hemorrhagic transformation, small amount reactive ascites in the pelvis, small left pleural effusion with partial collapse of left lower lobe Possible reaction to pancreatitis, but also has risks of intra-abdominal infection, currently patient is on TPN that places patient on risk of infection also Pending blood culture, urinalysis Patient is allergic to Levaquin Sepsis likely secondary to UTI and possible pneumonia Continue vancomycin Zosyn 04/16 Transaminitis: Code(s): R74.01 - Elevation of levels of liver transaminase levels Status: Acute Assessment and Plan: As above. Elevated partial thromboplastin time (PTT): Code(s): R79.1 - Abnormal coagulation profile Status: Chronic Assessment and Plan: PTT 197, previously 159 on 06/27/2023. Patient has previously been referred to Hematology but has not follow-up with this. Her mother and maternal grandmother have some form of clotting disorder and are both She has bleeding gums but no miscarriages or early bruising. 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 Oncology/hematology consulted and appreciate their input Abnormal uterine bleeding: Code(s): N93.9 - Abnormal uterine and vaginal bleeding, unspecified Status: Acute Assessment and Plan: Patient reports vaginal bleeding since delivery in February. Hgb 13.2 upon arrival in the ED Pelvic ultrasound was unremarkable. Could be related to her elevated PTT. HH has trended down to 8.4 today but could be related to fluids. final armature tester consulted and appreciate their input Hypokalemia: Code(s): E87.6 - Hypokalemia Status: Acute Assessment and Plan: Repeated, potassium still low. Mag 2.2 Replace potassium Replace Phos as well. Subjective Date/time seen: 04/17/24 08:26 Interval history: Patient feels better today, off COW RIDER pump Patient afebrile, blood pressure stable, leukocytosis trending down,, hemoglobin 8.2 stable, urine culture has no growth so far, and pending blood culture. Exam Narrative: GENERAL: Pleasant, in no acute distress. Well-nourished. - EYES: EOMI. Anicteric. - HENT: Moist mucous membranes. - LUNGS: Clear to auscultation bilaterally, no wheezing, rhonchi, or rales. Tachypnea - CARDIOVASCULAR: Regular rate and rhythm. No murmur. No JVD. Tachycardia - ABDOMEN: Soft, diffuse tender and some distended. No palpable masses. - EXTREMITIES: No edema. Peripheral pulses 2+. Non-tender. - NEUROLOGIC: No focal neurological deficits. CN II-XII grossly intact. - PSYCHIATRIC: Awake, Alert and oriented x 3. Appropriate mood and affect. - SKIN: No rashes or lesions. Warm. - LYMPH: No cervical lymphadenopathy. Objective Data Vital Signs Vital Signs: Vital Signs - 24 hr 04/16/24 08:00 04/16/24 08:07 04/16/24 11:59 Temperature 98.0 F 97.6 F Pulse Rate 90 98 Respiratory Rate 18 18 Blood Pressure 134/65 120/63 Pulse Oximetry 99 99 Oxygen Delivery Room Air 04/16/24 12:00 04/16/24 16:00 04/16/24 20:00 Temperature 97.6 F 98.5 F 97.6 F Pulse Rate 85 95 100 Respiratory Rate 18 20 16 Blood Pressure 120/63 112/51 L 129/63 Pulse Oximetry 99 99 99 Oxygen Delivery 04/16/24 20:00 04/17/24 00:44 04/17/24 05:54 Temperature 97.6 F 97.7 F Pulse Rate 99 100 Respiratory Rate 16 14 Blood Pressure 113/63 118/67 Pulse Oximetry 99 99 98 Oxygen Delivery Room Air 04/17/24 08:00 Temperature 98.1 F Pulse Rate 100 Respiratory Rate 20 Blood Pressure 134/72 Pulse Oximetry 99 Oxygen Delivery Intake/Output Intake/Output: Intake & Output 04/14/24 04/15/24 04/16/24 04/18/24 23:59 23:59 23:59 00:59 Intake Total 2049.3 3562.5 3647 850 Balance 2049.3 3562.5 3647 850 Meds/Results Medications: Active Medications Generic Name Dose Route Start Last Admin Trade Name Freq PRN Reason Stop Dose Admin Acetaminophen 650 mg 04/08/24 13:45 Acetaminophen 325 Mg Tablet PO Q4H PRN Fever Acetaminophen 500 mg 04/15/24 11:18 Acetaminophen 500 Mg Tablet PO Q6H PRN Pain Rated 1-3 Dextrose 12.5 gm 04/09/24 18:37 Dextrose 50% 25 Gm/50 Ml Syringe IV PUSH PRN PRN Hypoglycemia Protocol Enoxaparin Sodium 40 mg 04/16/24 09:00 04/16/24 08:39 Enoxaparin 40 Mg/0.4 Ml Syringe SUB-Q 40 mg DAILY JULIANO Administration Glucagon 1 mg 04/09/24 18:37 Glucagon For Inj 1 Mg Vial IM PRN PRN Hypoglycemia Protocol Glucose 15 gm 04/09/24 18:37 Glucose Oral Gel 15 Gm Of Glucse In 37.5 Gm Tube PO PRN PRN Hypoglycemia Protocol Dextrose 1,000 mls @ 100 mls/hr 04/09/24 18:37 Dextrose 5% 1,000 Ml IVPB PRN PRN Hypoglycemia Protocol Dextrose 1,000 mls @ 50 mls/hr 04/11/24 11:47 Dextrose 10% IV CONT .Q20H PRN if PN is interrupted Ibuprofen 800 mg in 200 mls @ 400 mls/hr 04/12/24 10:32 04/13/24 05:46 Caldolor 800 Mg/200 Ml IVPB Infused Q6H PRN Infusion Mild Pain (1-3) Piperacillin/Tazobactam/Dextrose 3.375 gm in 50 mls @ 100 mls/hr 04/15/24 12:00 04/17/24 05:40 Zosyn 3.375 Gm/Ns 50 Ml IVPB 100 mls/hr Q6H JULIANO Administration Vancomycin HCl 1,750 mg in 500 mls @ 250 mls/hr 04/17/24 01:00 04/17/24 03:38 Vancomycin 1,750 Mg/Ns 500 Ml IVPB Infused Q8H JULIANO Infusion Ibuprofen 600 mg 04/15/24 08:23 04/17/24 04:04 Ibuprofen 600 Mg Tablet PO 600 mg Q6H PRN Administration Toothache Insulin Aspart 2 - 5 units 04/10/24 00:00 04/17/24 04:03 Insulin Aspart (*Bkc) 100 Units/Ml SUB-Q Not Given Q6HR JULIANO Protocol Lidocaine 1 patch 04/08/24 19:02 04/11/24 08:47 Lidocaine 5% Patch TRANSDERM 1 patch Q24H PRN Administration back pain Miscellaneous Information 1 each 04/16/24 00:01 04/16/24 18:23 Clinamix Needs To Be Renewed Or It Will Automatically Discontinue. XX 05/16/24 00:00 Not Given CLARIFY JULIANO Morphine Sulfate 2 mg 04/15/24 11:18 Morphine Sulfate (*Crx) 2 Mg/Ml Inj IV PUSH Q2H PRN Breakthrough Pain Rated 4-6 or NPO Morphine Sulfate 4 mg 04/15/24 11:18 Morphine Sulfate (*Crx) 4 Mg/Ml Inj IV PUSH Q2H PRN Breakthrough Pain Rated 7-10 or NPO Naloxone HCl 0.1 mg 04/15/24 11:18 Naloxone Hcl 0.4 Mg/Ml Vial IV PUSH Q2M PRN Opiate Reversal Ondansetron HCl 4 mg 04/08/24 13:45 04/09/24 15:29 Ondansetron Inj 4 Mg/2 Ml Vial IV PUSH 4 mg Q6H PRN Administration Nausea And Vomiting Oxycodone/Acetaminophen 1 tablet 04/15/24 11:18 04/16/24 12:44 Oxycodone/Acetaminophen (*Crx) 5-325 Mg Tablet PO 1 tablet Q4H PRN Administration Pain Rated 4-6 Oxycodone/Acetaminophen 1 tab 04/15/24 11:18 04/17/24 04:04 Oxycodone/Acetaminophen (*Crx) 10-325 Mg Tablet PO 1 tab Q6H PRN Administration Pain Rated 7-10 Pantoprazole Sodium 40 mg 04/16/24 09:00 04/16/24 08:38 Pantoprazole 40 Mg Tablet PO 40 mg QAM JULIANO Administration Polyethylene Glycol 17 gm 04/14/24 13:10 04/16/24 08:39 Polyethylene Glycol 3350 17 Gm Powd.Pack PO Not Given QAM JULIANO Potassium Chloride 20 meq 04/16/24 08:00 04/16/24 08:38 Potassium Chloride 20 Meq Er Tablet PO 20 meq DAILY@0800 JULIANO Administration Senna/Docusate Sodium 2 tab 04/14/24 21:00 04/16/24 21:21 Senna/Docusate Sodium Tablet PO 2 tab HS JULIANO Administration Sertraline HCl 50 mg 04/09/24 09:00 04/16/24 08:38 Sertraline Hcl 50 Mg Tablet PO 50 mg DAILY JULIANO Administration Sodium Chloride 20 ml 04/11/24 14:26 04/16/24 04:34 Central Line Flush IV PUSH 20 ml PRN PRN Administration after blood draws Sodium Chloride 10 ml 04/11/24 14:26 04/16/24 00:29 Central Line Flush IV PUSH 10 ml PRN PRN Administration with TPN bag changes Sodium Chloride 10 ml 04/11/24 22:00 04/17/24 05:40 Central Line Flush IV PUSH 10 ml Q8HR JULIANO Administration Radiology Results: ITS Impressions MRCP 04/09/24 12:03 IMPRESSION: 1. Multiple tiny gallstones in the dependent aspect of the normal gallbladder. 2. Diffuse acute interstitial pancreatitis with prominent nonloculated peripancreatic fluid tracking into the intra and retroperitoneal soft tissue tissues. 3. No intra or extrahepatic biliary ductal dilation or evident choledocholithiasis. 4. Increased signal in the dependent lower lobes which could represent atelectasis or pneumonia. ADDENDUM: 04/09/24 1301 CORRECTION: Incorrect contrast agent is noted in the technique section. The study was performed without and with 16 mL ProHance intravenous contrast. Pelvis Ultrasound 04/09/24 13:37 IMPRESSION: 1. Unremarkable pelvic ultrasound. Chest/Abdomen/Pelvis CTA 04/11/24 12:59 IMPRESSION: 1. No evident pulmonary embolism. Sensitivity mildly decreased in the segmental and more prominently in the subsegmental pulmonary arteries due to is suboptimal opacification of the pulmonary arteries as well as small amount of respiratory and streak artifact. 2. Small left pleural effusion with partial collapse of the left lower lobe and additional atelectasis in the right lower lobe. 3. Interval progression of nonloculated peripancreatic fluid and extensive stranding consistent with acute interstitial pancreatitis. 4. Small amount of ascites in the abdomen and pelvis with increased density of the fluid in the dependent cul-de-sac suggesting complex/exudative ascites which could be seen with small amount of hemoperitoneum or peritonitis. Chest X-Ray 04/14/24 08:29 IMPRESSION: Mild pulmonary vascular congestion with a left lower lobe infiltrate and likely adjacent effusion. Abdomen/Pelvis CT 04/14/24 08:35 IMPRESSION: 1. Continued progression in nonloculated peripancreatic fluid and stranding consistent with acute interstitial pancreatitis with no abscess, necrosis or hemorrhagic transformation. 2. Small amount of likely reactive ascites in the pelvis. 3. Unchanged small left pleural effusion with partial collapse left lower lobe. Labs Labs: Laboratory Results - last 24 hr 04/16/24 04/16/24 04/16/24 04:26 11:47 16:24 WBC RBC Hgb Hct MCV MCH MCHC RDW Plt Count MPV Immature Gran % (Auto) Neut % (Auto) Lymph % (Auto) [place] % (Auto) Eos % (Auto) Baso % (Auto) Lymph # (Auto) [place] # (Auto) Eos # (Auto) Baso # (Auto) Abs Immat Gran (auto) Absolute Neuts (auto) Absolute Nucleated RBC Nucleated RBC % Sodium Potassium Chloride Carbon Dioxide Anion Gap BUN Creatinine Estim Creat Clear Calc Estimated GFR Glucose POC Capillary Glucose 196 H 154 H Calcium Phosphorus Triglycerides 107 Vancomycin Trough 04/16/24 04/17/24 04/17/24 23:16 00:43 04:43 WBC 15.7 H RBC 3.29 L Hgb 8.2 L Hct 27.1 L MCV 82.4 MCH 24.9 L MCHC 30.3 L RDW 17.5 H Plt Count 253 MPV 9.9 Immature Gran % (Auto) 6.0 H Neut % (Auto) 78.0 H Lymph % (Auto) 10.5 L [place] % (Auto) 4.5 Eos % (Auto) 0.8 Baso % (Auto) 0.2 Lymph # (Auto) 1.64 [place] # (Auto) 0.7 H Eos # (Auto) 0.1 Baso # (Auto) 0.0 Abs Immat Gran (auto) 0.94 H Absolute Neuts (auto) 12.2 H Absolute Nucleated RBC 0.030 H Nucleated RBC % 0.2 Sodium 138 Potassium 3.8 Chloride 103 Carbon Dioxide 25 Anion Gap 10 BUN 11 Creatinine 0.48 L Estim Creat Clear Calc 145 Estimated GFR > 60 Glucose 111 H POC Capillary Glucose 106 H Calcium 8.5 Phosphorus 5.1 H Triglycerides Vancomycin Trough 5.7 L 04/17/24 05:52 WBC RBC Hgb Hct MCV MCH MCHC RDW Plt Count MPV Immature Gran % (Auto) Neut % (Auto) Lymph % (Auto) [place] % (Auto) Eos % (Auto) Baso % (Auto) Lymph # (Auto) [place] # (Auto) Eos # (Auto) Baso # (Auto) Abs Immat Gran (auto) Absolute Neuts (auto) Absolute Nucleated RBC Nucleated RBC % Sodium Potassium Chloride Carbon Dioxide Anion Gap BUN Creatinine Estim Creat Clear Calc Estimated GFR Glucose POC Capillary Glucose 101 Calcium Phosphorus Triglycerides Vancomycin Trough
[2024-04-17] MEDS: POTASSIUM CHLORIDE 20 MEQ ER TABLET PO (09:22)
[2024-04-17] MEDS: SERTRALINE HCL 50 MG TABLET PO (09:22)
[2024-04-17] MEDS: PANTOPRAZOLE 40 MG TABLET PO (09:22)
[2024-04-17] MEDS: ENOXAPARIN 40 MG/0.4 ML SYRINGE SUB-Q (09:23)
[2024-04-17 09:42] LABS: Glucose Point of Care 157 mg/dl (65-105)
--- NOTE | 2024-04-17 10:56 | PM.PNGS ---
Progress Note: A&P Assessment and Plan (1) Leukocytosis: Code(s): D72.829 - Elevated white blood cell count, unspecified Status: Acute Assessment and Plan: Continues to improve, likely reactive secondary to pancreatitis. (2) Acute pancreatitis: Qualifiers: Acute pancreatitis complication: unspecified Pancreatitis type: unspecified pancreatitis type Qualified Code(s): K85.90 - Acute pancreatitis without necrosis or infection, unspecified Code(s): K85.90 - Acute pancreatitis without necrosis or infection, unspecified Status: Acute Assessment and Plan: Slowly improving but quite prolonged. Continue low fat diet. Increase activity. Encourage adequate oral intake. (3) Cholelithiasis: Qualifiers: Biliary obstruction: with biliary obstruction Cholecystitis presence: without cholecystitis Cholelithiasis location: gallbladder Qualified Code(s): K80.21 - Calculus of gallbladder without cholecystitis with obstruction Code(s): K80.20 - Calculus of gallbladder without cholecystitis without obstruction Status: Chronic Assessment and Plan: No acute cholecystitis noted but will eventually need laparoscopic cholecystectomy as gallstones are likely the cause of her acute pancreatitis (4) Elevated partial thromboplastin time (PTT): Code(s): R79.1 - Abnormal coagulation profile Status: Chronic Assessment and Plan: Evaluation underway, most likely would seem to be lupus anticoagulant. Subjective Subjective Date/Time Seen: 04/17/24 10:56 Interval history: Still c/o abdominal pain. Not much appetite but no vomiting. Exam GI: Inspection: non-distended GI Palp: Yes Soft to palpation, Yes Tenderness to palpation present (GI) (epigastric), No Guarding due to palpation present (GI), No Palpable mass present and No Rebound tenderness present Auscultation: normal bowel sounds Objective Data Vital Signs Vital Signs: Vital Signs - 24 hr 04/16/24 11:59 04/16/24 12:00 04/16/24 16:00 Temperature 97.6 F 97.6 F 98.5 F Pulse Rate 98 85 95 Respiratory Rate 18 18 20 Blood Pressure 120/63 120/63 112/51 L Pulse Oximetry 99 99 99 Oxygen Delivery 04/16/24 20:00 04/16/24 20:00 04/17/24 00:44 Temperature 97.6 F 97.6 F Pulse Rate 100 99 Respiratory Rate 16 16 Blood Pressure 129/63 113/63 Pulse Oximetry 99 99 99 Oxygen Delivery Room Air 04/17/24 05:54 04/17/24 08:00 04/17/24 09:24 Temperature 97.7 F 98.1 F Pulse Rate 100 100 Respiratory Rate 14 20 Blood Pressure 118/67 134/72 Pulse Oximetry 98 99 Oxygen Delivery Room Air Intake/Output Intake/Output: Intake & Output 04/14/24 04/15/24 04/16/24 04/18/24 23:59 23:59 23:59 00:59 Intake Total 2049.3 3562.5 3647 1190 Balance 2049.3 3562.5 3647 1190 Meds/Results Medications: Active Medications Generic Name Dose Route Start Last Admin Trade Name Freq PRN Reason Stop Dose Admin Acetaminophen 650 mg 04/08/24 13:45 Acetaminophen 325 Mg Tablet PO Q4H PRN Fever Acetaminophen 500 mg 04/15/24 11:18 Acetaminophen 500 Mg Tablet PO Q6H PRN Pain Rated 1-3 Dextrose 12.5 gm 04/09/24 18:37 Dextrose 50% 25 Gm/50 Ml Syringe IV PUSH PRN PRN Hypoglycemia Protocol Enoxaparin Sodium 40 mg 04/16/24 09:00 04/17/24 09:23 Enoxaparin 40 Mg/0.4 Ml Syringe SUB-Q 40 mg DAILY JULINAO Administration Glucagon 1 mg 04/09/24 18:37 Glucagon For Inj 1 Mg Vial IM PRN PRN Hypoglycemia Protocol Glucose 15 gm 04/09/24 18:37 Glucose Oral Gel 15 Gm Of Glucse In 37.5 Gm Tube PO PRN PRN Hypoglycemia Protocol Dextrose 1,000 mls @ 100 mls/hr 04/09/24 18:37 Dextrose 5% 1,000 Ml IVPB PRN PRN Hypoglycemia Protocol Dextrose 1,000 mls @ 50 mls/hr 04/11/24 11:47 Dextrose 10% IV CONT .Q20H PRN if PN is interrupted Ibuprofen 800 mg in 200 mls @ 400 mls/hr 04/12/24 10:32 04/13/24 05:46 Caldolor 800 Mg/200 Ml IVPB Infused Q6H PRN Infusion Mild Pain (1-3) Piperacillin/Tazobactam/Dextrose 3.375 gm in 50 mls @ 100 mls/hr 04/15/24 12:00 04/17/24 05:40 Zosyn 3.375 Gm/Ns 50 Ml IVPB 100 mls/hr Q6H JULIANO Administration Vancomycin HCl 1,750 mg in 500 mls @ 250 mls/hr 04/17/24 01:00 04/17/24 09:24 Vancomycin 1,750 Mg/Ns 500 Ml IVPB 250 mls/hr Q8H JULIANO Administration Ibuprofen 600 mg 04/15/24 08:23 04/17/24 09:35 Ibuprofen 600 Mg Tablet PO 600 mg Q6H PRN Administration Toothache Insulin Aspart 2 - 5 units 04/10/24 00:00 04/17/24 10:32 Insulin Aspart (*Bkc) 100 Units/Ml SUB-Q Not Given Q6HR [facility] Protocol Lidocaine 1 patch 04/08/24 19:02 04/11/24 08:47 Lidocaine 5% Patch TRANSDERM 1 patch Q24H PRN Administration back pain Miscellaneous Information 1 each 04/16/24 00:01 04/16/24 18:23 Clinamix Needs To Be Renewed Or It Will Automatically Discontinue. XX 05/16/24 00:00 Not Given CLARIFY JULIANO Morphine Sulfate 2 mg 04/15/24 11:18 Morphine Sulfate (*Crx) 2 Mg/Ml Inj IV PUSH Q2H PRN Breakthrough Pain Rated 4-6 or NPO Morphine Sulfate 4 mg 04/15/24 11:18 Morphine Sulfate (*Crx) 4 Mg/Ml Inj IV PUSH Q2H PRN Breakthrough Pain Rated 7-10 or NPO Naloxone HCl 0.1 mg 04/15/24 11:18 Naloxone Hcl 0.4 Mg/Ml Vial IV PUSH Q2M PRN Opiate Reversal Ondansetron HCl 4 mg 04/08/24 13:45 04/09/24 15:29 Ondansetron Inj 4 Mg/2 Ml Vial IV PUSH 4 mg Q6H PRN Administration Nausea And Vomiting Oxycodone/Acetaminophen 1 tablet 04/15/24 11:18 04/16/24 12:44 Oxycodone/Acetaminophen (*Crx) 5-325 Mg Tablet PO 1 tablet Q4H PRN Administration Pain Rated 4-6 Oxycodone/Acetaminophen 1 tab 04/15/24 11:18 04/17/24 04:04 Oxycodone/Acetaminophen (*Crx) 10-325 Mg Tablet PO 1 tab Q6H PRN Administration Pain Rated 7-10 Pantoprazole Sodium 40 mg 04/16/24 09:00 04/17/24 09:22 Pantoprazole 40 Mg Tablet PO 40 mg QAM JULIANO Administration Polyethylene Glycol 17 gm 04/14/24 13:10 04/17/24 09:23 Polyethylene Glycol 3350 17 Gm Powd.Pack PO Not Given QAM JULIANO Potassium Chloride 20 meq 04/16/24 08:00 04/17/24 09:22 Potassium Chloride 20 Meq Er Tablet PO 20 meq DAILY@0800 JULIANO Administration Senna/Docusate Sodium 2 tab 04/14/24 21:00 04/16/24 21:21 Senna/Docusate Sodium Tablet PO 2 tab HS JULIANO Administration Sertraline HCl 50 mg 04/09/24 09:00 04/17/24 09:22 Sertraline Hcl 50 Mg Tablet PO 50 mg DAILY JULIANO Administration Sodium Chloride 20 ml 04/11/24 14:26 04/16/24 04:34 Central Line Flush IV PUSH 20 ml PRN PRN Administration after blood draws Sodium Chloride 10 ml 04/11/24 14:26 04/16/24 00:29 Central Line Flush IV PUSH 10 ml PRN PRN Administration with TPN bag changes Sodium Chloride 10 ml 04/11/24 22:00 04/17/24 05:40 Central Line Flush IV PUSH 10 ml Q8HR JULIANO Administration Radiology Results: ITS Impressions MRCP 04/09/24 12:03 IMPRESSION: 1. Multiple tiny gallstones in the dependent aspect of the normal gallbladder. 2. Diffuse acute interstitial pancreatitis with prominent nonloculated peripancreatic fluid tracking into the intra and retroperitoneal soft tissue tissues. 3. No intra or extrahepatic biliary ductal dilation or evident choledocholithiasis. 4. Increased signal in the dependent lower lobes which could represent atelectasis or pneumonia. ADDENDUM: 04/09/24 1301 CORRECTION: Incorrect contrast agent is noted in the technique section. The study was performed without and with 16 mL ProHance intravenous contrast. Pelvis Ultrasound 04/09/24 13:37 IMPRESSION: 1. Unremarkable pelvic ultrasound. Chest/Abdomen/Pelvis CTA 04/11/24 12:59 IMPRESSION: 1. No evident pulmonary embolism. Sensitivity mildly decreased in the segmental and more prominently in the subsegmental pulmonary arteries due to is suboptimal opacification of the pulmonary arteries as well as small amount of respiratory and streak artifact. 2. Small left pleural effusion with partial collapse of the left lower lobe and additional atelectasis in the right lower lobe. 3. Interval progression of nonloculated peripancreatic fluid and extensive stranding consistent with acute interstitial pancreatitis. 4. Small amount of ascites in the abdomen and pelvis with increased density of the fluid in the dependent cul-de-sac suggesting complex/exudative ascites which could be seen with small amount of hemoperitoneum or peritonitis. Chest X-Ray 04/14/24 08:29 IMPRESSION: Mild pulmonary vascular congestion with a left lower lobe infiltrate and likely adjacent effusion. Abdomen/Pelvis CT 04/14/24 08:35 IMPRESSION: 1. Continued progression in nonloculated peripancreatic fluid and stranding consistent with acute interstitial pancreatitis with no abscess, necrosis or hemorrhagic transformation. 2. Small amount of likely reactive ascites in the pelvis. 3. Unchanged small left pleural effusion with partial collapse left lower lobe. Labs Labs: Laboratory Results - last 24 hr 04/16/24 04/16/24 04/16/24 04:26 11:47 16:24 WBC RBC Hgb Hct MCV MCH MCHC RDW Plt Count MPV Immature Gran % (Auto) Neut % (Auto) Lymph % (Auto) [place] % (Auto) Eos % (Auto) Baso % (Auto) Lymph # (Auto) [place] # (Auto) Eos # (Auto) Baso # (Auto) Abs Immat Gran (auto) Absolute Neuts (auto) Absolute Nucleated RBC Nucleated RBC % Sodium Potassium Chloride Carbon Dioxide Anion Gap BUN Creatinine Estim Creat Clear Calc Estimated GFR Glucose POC Capillary Glucose 196 H 154 H Calcium Phosphorus Triglycerides 107 Vancomycin Trough 04/16/24 04/17/24 04/17/24 23:16 00:43 04:43 WBC 15.7 H RBC 3.29 L Hgb 8.2 L Hct 27.1 L MCV 82.4 MCH 24.9 L MCHC 30.3 L RDW 17.5 H Plt Count 253 MPV 9.9 Immature Gran % (Auto) 6.0 H Neut % (Auto) 78.0 H Lymph % (Auto) 10.5 L [place] % (Auto) 4.5 Eos % (Auto) 0.8 Baso % (Auto) 0.2 Lymph # (Auto) 1.64 [place] # (Auto) 0.7 H Eos # (Auto) 0.1 Baso # (Auto) 0.0 Abs Immat Gran (auto) 0.94 H Absolute Neuts (auto) 12.2 H Absolute Nucleated RBC 0.030 H Nucleated RBC % 0.2 Sodium 138 Potassium 3.8 Chloride 103 Carbon Dioxide 25 Anion Gap 10 BUN 11 Creatinine 0.48 L Estim Creat Clear Calc 145 Estimated GFR > 60 Glucose 111 H POC Capillary Glucose 106 H Calcium 8.5 Phosphorus 5.1 H Triglycerides Vancomycin Trough 5.7 L 04/17/24 04/17/24 05:52 09:31 WBC RBC Hgb Hct MCV MCH MCHC RDW Plt Count MPV Immature Gran % (Auto) Neut % (Auto) Lymph % (Auto) [place] % (Auto) Eos % (Auto) Baso % (Auto) Lymph # (Auto) [place] # (Auto) Eos # (Auto) Baso # (Auto) Abs Immat Gran (auto) Absolute Neuts (auto) Absolute Nucleated RBC Nucleated RBC % Sodium Potassium Chloride Carbon Dioxide Anion Gap BUN Creatinine Estim Creat Clear Calc Estimated GFR Glucose POC Capillary Glucose 101 157 H Calcium Phosphorus Triglycerides Vancomycin Trough
[2024-04-17] MEDS: MAGNESIUM HYDROXIDE SUSP 30 ML UDC PO (11:41)
[2024-04-17 11:48] LABS: Glucose Point of Care 214 mg/dl (65-105)
[2024-04-17] MEDS: INSULIN ASPART (*BKC) 100 UNITS/ML SUB-Q (11:48)
[2024-04-17 12:00] VITALS: BP 128/73; PULSE 110; RESP 18; TEMP 36.3; O2SAT 97
--- NOTE | 2024-04-17 12:47 | P.PNGI_ITS ---
Progress Note: A&P Assessment and Plan (1) Gallstone pancreatitis: Code(s): K85.10 - Biliary acute pancreatitis without necrosis or infection Status: Acute Assessment and Plan: TPN discontinued still poor appetite but seems more comfortable (2) Upper abdominal pain: Code(s): R10.10 - Upper abdominal pain, unspecified Status: Acute Assessment and Plan: [employer] was discontinued pain meds prn now (3) Transaminitis: Code(s): R74.01 - Elevation of levels of liver transaminase levels Status: Acute Assessment and Plan: from pancreatitis no need of ercp surgery on board, at some point will need lap blanquita but probably after resolution of pancreatitis (4) Leukocytosis: Code(s): D72.829 - Elevated white blood cell count, unspecified Status: Acute Assessment and Plan: this also could be stress response or from pancreatitis (5) Nausea: Code(s): R11.0 - Nausea Status: Acute Assessment and Plan: on meds Subjective Date/time seen: 04/17/24 12:47 Interval history: less pain but nauseous and did not eat much for breakfast TPN discontinued Review of Systems Review of Systems: All systems reviewed & are unremarkable except as noted in HPI and below Exam Const: General: no acute distress Orientation/consciousness: patient oriented x3 HENMT: Face/Nose/Sinus: Normal nares present Eyes: Sclera: sclerae normal Neck: Neck: supple Resp: Effort & Inspection: normal respiratory effort Cardio: Rate: regular rate GI: Inspection: non-distended GI Palp: Yes Soft to palpation, Yes Tenderness to palpation present (GI) (diffusely tender- similar) and No Guarding due to palpation present (GI) Skin: General skin exam: no rashes or lesions noted Neuro: General: moves all extremities Extrem: General: no pedal edema and no calf tenderness Psych: Mental Status: mental status grossly normal Objective Data Vital Signs Vital Signs: Vital Signs - 24 hr 04/16/24 11:59 04/16/24 12:00 04/16/24 16:00 Temperature 97.6 F 97.6 F 98.5 F Pulse Rate 98 85 95 Respiratory Rate 18 18 20 Blood Pressure 120/63 120/63 112/51 L Pulse Oximetry 99 99 99 Oxygen Delivery 04/16/24 20:00 04/16/24 20:00 04/17/24 00:44 Temperature 97.6 F 97.6 F Pulse Rate 100 99 Respiratory Rate 16 16 Blood Pressure 129/63 113/63 Pulse Oximetry 99 99 99 Oxygen Delivery Room Air 04/17/24 05:54 04/17/24 08:00 04/17/24 09:24 Temperature 97.7 F 98.1 F Pulse Rate 100 100 Respiratory Rate 14 20 Blood Pressure 118/67 134/72 Pulse Oximetry 98 99 Oxygen Delivery Room Air Intake/Output Intake/Output: Intake & Output 04/14/24 04/15/24 04/16/24 04/18/24 23:59 23:59 23:59 00:59 Intake Total 2049.3 3562.5 3647 1240 Balance 2049.3 3562.5 3647 1240 Meds/Results Medications: Active Medications Generic Name Dose Route Start Last Admin Trade Name Freq PRN Reason Stop Dose Admin Acetaminophen 650 mg 04/08/24 13:45 Acetaminophen 325 Mg Tablet PO Q4H PRN Fever Acetaminophen 500 mg 04/15/24 11:18 Acetaminophen 500 Mg Tablet PO Q6H PRN Pain Rated 1-3 Dextrose 12.5 gm 04/09/24 18:37 Dextrose 50% 25 Gm/50 Ml Syringe IV PUSH PRN PRN Hypoglycemia Protocol Enoxaparin Sodium 40 mg 04/16/24 09:00 04/17/24 09:23 Enoxaparin 40 Mg/0.4 Ml Syringe SUB-Q 40 mg DAILY JULIANO Administration Glucagon 1 mg 04/09/24 18:37 Glucagon For Inj 1 Mg Vial IM PRN PRN Hypoglycemia Protocol Glucose 15 gm 04/09/24 18:37 Glucose Oral Gel 15 Gm Of Glucse In 37.5 Gm Tube PO PRN PRN Hypoglycemia Protocol Dextrose 1,000 mls @ 100 mls/hr 04/09/24 18:37 Dextrose 5% 1,000 Ml IVPB PRN PRN Hypoglycemia Protocol Dextrose 1,000 mls @ 50 mls/hr 04/11/24 11:47 Dextrose 10% IV CONT .Q20H PRN if PN is interrupted Ibuprofen 800 mg in 200 mls @ 400 mls/hr 04/12/24 10:32 04/13/24 05:46 Caldolor 800 Mg/200 Ml IVPB Infused Q6H PRN Infusion Mild Pain (1-3) Piperacillin/Tazobactam/Dextrose 3.375 gm in 50 mls @ 100 mls/hr 04/15/24 12:00 04/17/24 11:42 Zosyn 3.375 Gm/Ns 50 Ml IVPB 100 mls/hr Q6H JULIANO Administration Vancomycin HCl 1,750 mg in 500 mls @ 250 mls/hr 04/17/24 01:00 04/17/24 09:24 Vancomycin 1,750 Mg/Ns 500 Ml IVPB 250 mls/hr Q8H JULIANO Administration Ibuprofen 600 mg 04/15/24 08:23 04/17/24 09:35 Ibuprofen 600 Mg Tablet PO 600 mg Q6H PRN Administration Toothache Insulin Aspart 2 - 5 units 04/10/24 00:00 04/17/24 11:48 Insulin Aspart (*Bkc) 100 Units/Ml SUB-Q 2 units Q6HR JULIANO Administration Protocol Lidocaine 1 patch 04/08/24 19:02 04/11/24 08:47 Lidocaine 5% Patch TRANSDERM 1 patch Q24H PRN Administration back pain Miscellaneous Information 1 each 04/16/24 00:01 04/16/24 18:23 Clinamix Needs To Be Renewed Or It Will Automatically Discontinue. XX 05/16/24 00:00 Not Given CLARIFY JULIANO Morphine Sulfate 2 mg 04/15/24 11:18 Morphine Sulfate (*Crx) 2 Mg/Ml Inj IV PUSH Q2H PRN Breakthrough Pain Rated 4-6 or NPO Morphine Sulfate 4 mg 04/15/24 11:18 Morphine Sulfate (*Crx) 4 Mg/Ml Inj IV PUSH Q2H PRN Breakthrough Pain Rated 7-10 or NPO Naloxone HCl 0.1 mg 04/15/24 11:18 Naloxone Hcl 0.4 Mg/Ml Vial IV PUSH Q2M PRN Opiate Reversal Ondansetron HCl 4 mg 04/08/24 13:45 04/09/24 15:29 Ondansetron Inj 4 Mg/2 Ml Vial IV PUSH 4 mg Q6H PRN Administration Nausea And Vomiting Oxycodone/Acetaminophen 1 tablet 04/15/24 11:18 04/16/24 12:44 Oxycodone/Acetaminophen (*Crx) 5-325 Mg Tablet PO 1 tablet Q4H PRN Administration Pain Rated 4-6 Oxycodone/Acetaminophen 1 tab 04/15/24 11:18 04/17/24 04:04 Oxycodone/Acetaminophen (*Crx) 10-325 Mg Tablet PO 1 tab Q6H PRN Administration Pain Rated 7-10 Pantoprazole Sodium 40 mg 04/16/24 09:00 04/17/24 09:22 Pantoprazole 40 Mg Tablet PO 40 mg QAM JULIANO Administration Polyethylene Glycol 17 gm 04/14/24 13:10 04/17/24 09:23 Polyethylene Glycol 3350 17 Gm Powd.Pack PO Not Given QAM JULIANO Potassium Chloride 20 meq 04/16/24 08:00 04/17/24 09:22 Potassium Chloride 20 Meq Er Tablet PO 20 meq DAILY@0800 JULIANO Administration Senna/Docusate Sodium 2 tab 04/14/24 21:00 04/16/24 21:21 Senna/Docusate Sodium Tablet PO 2 tab HS JULIANO Administration Sertraline HCl 50 mg 04/09/24 09:00 04/17/24 09:22 Sertraline Hcl 50 Mg Tablet PO 50 mg DAILY JULIANO Administration Sodium Chloride 20 ml 04/11/24 14:26 04/16/24 04:34 Central Line Flush IV PUSH 20 ml PRN PRN Administration after blood draws Sodium Chloride 10 ml 04/11/24 14:26 04/16/24 00:29 Central Line Flush IV PUSH 10 ml PRN PRN Administration with TPN bag changes Sodium Chloride 10 ml 04/11/24 22:00 04/17/24 05:40 Central Line Flush IV PUSH 10 ml Q8HR JULIANO Administration Radiology Results: ITS Impressions MRCP 04/09/24 12:03 IMPRESSION: 1. Multiple tiny gallstones in the dependent aspect of the normal gallbladder. 2. Diffuse acute interstitial pancreatitis with prominent nonloculated peripancreatic fluid tracking into the intra and retroperitoneal soft tissue tissues. 3. No intra or extrahepatic biliary ductal dilation or evident choledocholithiasis. 4. Increased signal in the dependent lower lobes which could represent atelectasis or pneumonia. ADDENDUM: 04/09/24 1301 CORRECTION: Incorrect contrast agent is noted in the technique section. The study was performed without and with 16 mL ProHance intravenous contrast. Pelvis Ultrasound 04/09/24 13:37 IMPRESSION: 1. Unremarkable pelvic ultrasound. Chest/Abdomen/Pelvis CTA 04/11/24 12:59 IMPRESSION: 1. No evident pulmonary embolism. Sensitivity mildly decreased in the segmental and more prominently in the subsegmental pulmonary arteries due to is suboptimal opacification of the pulmonary arteries as well as small amount of respiratory and streak artifact. 2. Small left pleural effusion with partial collapse of the left lower lobe and additional atelectasis in the right lower lobe. 3. Interval progression of nonloculated peripancreatic fluid and extensive stranding consistent with acute interstitial pancreatitis. 4. Small amount of ascites in the abdomen and pelvis with increased density of the fluid in the dependent cul-de-sac suggesting complex/exudative ascites which could be seen with small amount of hemoperitoneum or peritonitis. Chest X-Ray 04/14/24 08:29 IMPRESSION: Mild pulmonary vascular congestion with a left lower lobe infiltrate and likely adjacent effusion. Abdomen/Pelvis CT 04/14/24 08:35 IMPRESSION: 1. Continued progression in nonloculated peripancreatic fluid and stranding consistent with acute interstitial pancreatitis with no abscess, necrosis or hemorrhagic transformation. 2. Small amount of likely reactive ascites in the pelvis. 3. Unchanged small left pleural effusion with partial collapse left lower lobe. Labs Labs: Laboratory Results - last 24 hr 04/16/24 04/16/24 04/16/24 11:47 16:24 23:16 WBC RBC Hgb Hct MCV MCH MCHC RDW Plt Count MPV Immature Gran % (Auto) Neut % (Auto) Lymph % (Auto) [place] % (Auto) Eos % (Auto) Baso % (Auto) Lymph # (Auto) [place] # (Auto) Eos # (Auto) Baso # (Auto) Abs Immat Gran (auto) Absolute Neuts (auto) Absolute Nucleated RBC Nucleated RBC % Sodium Potassium Chloride Carbon Dioxide Anion Gap BUN Creatinine Estim Creat Clear Calc Estimated GFR Glucose POC Capillary Glucose 196 H 154 H Calcium Phosphorus Vancomycin Trough 5.7 L 04/17/24 04/17/24 04/17/24 00:43 04:43 05:52 WBC 15.7 H RBC 3.29 L Hgb 8.2 L Hct 27.1 L MCV 82.4 MCH 24.9 L MCHC 30.3 L RDW 17.5 H Plt Count 253 MPV 9.9 Immature Gran % (Auto) 6.0 H Neut % (Auto) 78.0 H Lymph % (Auto) 10.5 L [place] % (Auto) 4.5 Eos % (Auto) 0.8 Baso % (Auto) 0.2 Lymph # (Auto) 1.64 [place] # (Auto) 0.7 H Eos # (Auto) 0.1 Baso # (Auto) 0.0 Abs Immat Gran (auto) 0.94 H Absolute Neuts (auto) 12.2 H Absolute Nucleated RBC 0.030 H Nucleated RBC % 0.2 Sodium 138 Potassium 3.8 Chloride 103 Carbon Dioxide 25 Anion Gap 10 BUN 11 Creatinine 0.48 L Estim Creat Clear Calc 145 Estimated GFR > 60 Glucose 111 H POC Capillary Glucose 106 H 101 Calcium 8.5 Phosphorus 5.1 H Vancomycin Trough 04/17/24 04/17/24 09:31 11:34 WBC RBC Hgb Hct MCV MCH MCHC RDW Plt Count MPV Immature Gran % (Auto) Neut % (Auto) Lymph % (Auto) [place] % (Auto) Eos % (Auto) Baso % (Auto) Lymph # (Auto) [place] # (Auto) Eos # (Auto) Baso # (Auto) Abs Immat Gran (auto) Absolute Neuts (auto) Absolute Nucleated RBC Nucleated RBC % Sodium Potassium Chloride Carbon Dioxide Anion Gap BUN Creatinine Estim Creat Clear Calc Estimated GFR Glucose POC Capillary Glucose 157 H 214 H Calcium Phosphorus Vancomycin Trough
[2024-04-17 16:00] VITALS: BP 137/74; PULSE 98; RESP 18; TEMP 36.7; O2SAT 98
[2024-04-17] MEDS: ONDANSETRON INJ 4 MG/2 ML VIAL IV PUSH (17:19)
[2024-04-17 18:30] LABS: Glucose Point of Care 132 mg/dl (65-105)
[2024-04-17 20:00] VITALS: BP 127/67; PULSE 82; RESP 18; TEMP 36.9; O2SAT 97
[2024-04-17] MEDS: SENNA/DOCUSATE SODIUM TABLET 2 TAB PO (21:13)
[2024-04-18] VITALS: BP 125/67; PULSE 104; RESP 18; TEMP 36.7; O2SAT 98
[2024-04-18] MEDS: PIPERACILLN/TAZ 3.375GM/NS50ML 3.375 GM/50 ML BAG IVPB ×5 (00:13→23:56)
[2024-04-18 00:17] LABS: Glucose Point of Care 103 mg/dl (65-105)
[2024-04-18] MEDS: CENTRAL LINE FLUSH 10 ML IV PUSH ×4 (00:18→20:45)
[2024-04-18] MEDS: IBUPROFEN 600 MG TABLET PO ×2 (00:23→08:07)
[2024-04-18 01:53] LABS: Vancomycin Trough 20.8 ug/mL (10.0-20.0)
[2024-04-18 04:00] VITALS: BP 114/63; PULSE 93; RESP 18; TEMP 36.8; O2SAT 97
[2024-04-18] MEDS: oxyCODONE/ACETAMINOPHEN (*CRX) 5-325 MG TABLET 1 TABLET PO ×3 (05:52→23:58)
[2024-04-18 06:09] LABS: Basophils Percent Auto 0.1 % (0.2-1.2); Eosinophils Absolute Auto 0.1 K/mm3 (0-0.3); Eosinophils Percent Auto 0.6 % (0-4.4); Hematocrit 26.3 % (37.0-47.0); Immature Granulocyte Absolute 0.58 K/mm3 (0.00-0.031); Immature Granulocyte Percent A 3.4 % (0-0.5); Lymphocytes Absolute Auto 1.35 K/mm3 (0.9-3.2); Lymphocytes Percent Auto 7.8 % (18.3-44.2); Mean Corpuscular HGB Conc 30.4 g/dl (32-36); Mean Corpuscular Hemoglobin 25.2 pg (26-34); Mean Corpuscular Volume 82.7 fl (80-100); Mean Platelet Volume 9.5 fl (7.4-10.4); Monocytes Absolute Auto 0.7 K/mm3 (0.1-0.6); Monocytes Percent Auto 4.1 % (2.6-8.5); Neutrophils Absolute Auto 14.5 K/mm3 (1.3-6.7); Nucleated Red Blood Cells Perc 0.1 % (0.0-0.2); Platelet Count Result 262 k/mm3 (150-375); Red Blood Count 3.18 M/mm3 (4.2-5.4); Red Cell Distribution Width 17.4 % (11.5-14.5); White Blood Count 17.3 K/mm3 (4.5-10.0)
[2024-04-18 06:22] LABS: Alanine Aminotransferase 40 U/L (6-35); Alkaline Phosphatase 211 U/L (38-126); Anion Gap 7 mmol/L (4-12); Aspartate Amino Transferase 22 U/L (14-36); Bilirubin,Total 0.8 mg/dL (0.2-1.3); Blood Urea Nitrogen 12 mg/dL (7-17); Calcium 8.8 mg/dL (8.4-10.2); Carbon Dioxide 27 mmol/L (22-30); Chloride 105 mmol/L (98-107); Estimated CRCL calculation 63 ml/min; Estimated Glomerular Filt Rate 54; Glucose 113 mg/dL (65-110); Magnesium 2.2 mg/dL (1.6-2.3); Phosphorus 5.4 mg/dL (2.5-4.5); Sodium 139 mmol/L (137-145)
[2024-04-18 06:29] LABS: Transferrin 147 mg/dL (206-381)
[2024-04-18] MEDS: VANCOMYCIN 1,500 MG/NS 500 ML 1,500 MG/500 ML BAG 250 MG IVPB (06:41)
[2024-04-18 08:00] VITALS: BP 128/64; PULSE 96; RESP 17; TEMP 36.6; O2SAT 97
--- NOTE | 2024-04-18 08:04 | PM.PNGS ---
Progress Note: A&P Assessment and Plan (1) Leukocytosis: Code(s): D72.829 - Elevated white blood cell count, unspecified Status: Acute Assessment and Plan: White blood cell count a little higher today but this is probably due to maturation of immature granulocytes. Continue IV Zosyn antibiotics. Recommend discontinue vancomycin (2) Acute pancreatitis: Qualifiers: Acute pancreatitis complication: unspecified Pancreatitis type: unspecified pancreatitis type Qualified Code(s): K85.90 - Acute pancreatitis without necrosis or infection, unspecified Code(s): K85.90 - Acute pancreatitis without necrosis or infection, unspecified Status: Acute Assessment and Plan: Very prolonged. Will get another CT scan of the abdomen and pelvis tomorrow. No evidence of pseudocyst, necrosis, abscess seen on previous CT scans. (3) Cholelithiasis: Qualifiers: Biliary obstruction: with biliary obstruction Cholecystitis presence: without cholecystitis Cholelithiasis location: gallbladder Qualified Code(s): K80.21 - Calculus of gallbladder without cholecystitis with obstruction Code(s): K80.20 - Calculus of gallbladder without cholecystitis without obstruction Status: Chronic Assessment and Plan: No acute cholecystitis noted but will eventually need laparoscopic cholecystectomy as gallstones are likely the cause of her acute pancreatitis (4) Elevated partial thromboplastin time (PTT): Code(s): R79.1 - Abnormal coagulation profile Status: Chronic Assessment and Plan: Evaluation underway, most likely would seem to be lupus anticoagulant. Subjective Subjective Date/Time Seen: 04/18/24 08:04 Patient reports: still having pain (Improved but still having upper abdominal pain, most is left upper quadrant), tolerating a regular diet, voiding w/o difficulty, bowel movement and afebrile Review of Systems Review of Systems: All systems reviewed & are unremarkable except as noted in HPI and below (HPI) Exam Const: General: comfortable, no acute distress, alert, awake and tired appearing Orientation/consciousness: patient oriented x3 GI: Inspection: normal to inspection and non-distended GI Palp: Yes Soft to palpation, Yes Tenderness to palpation present (GI) (Entire upper abdomen, worse in left upper quadrant), Yes Guarding due to palpation present (GI) and No Palpable mass present Neuro: General: patient oriented x3 and no focal motor deficits Extrem: General: no calf tenderness and no edema Psych: Affect: normal affect Insight: Good insight present (Psych) Judgement: Good judgement present (Psych) Objective Data Vital Signs Vital Signs: Vital Signs - 24 hr 04/17/24 09:24 04/17/24 12:00 04/17/24 16:00 Temperature 36.3 C L 36.7 C Pulse Rate 110 H 98 Respiratory Rate 18 18 Blood Pressure 128/73 137/74 Pulse Oximetry 97 98 Oxygen Delivery Room Air 04/17/24 20:00 04/18/24 00:00 04/18/24 04:00 Temperature 36.9 C 36.7 C 36.8 C Pulse Rate 82 104 H 93 Respiratory Rate 18 18 18 Blood Pressure 127/67 125/67 114/63 Pulse Oximetry 97 98 97 Oxygen Delivery Intake/Output Intake/Output: Intake & Output 04/15/24 04/16/24 04/18/24 04/18/24 23:59 23:59 00:59 23:59 Intake Total 3562.5 3647 3440 100 Balance 3562.5 3647 3440 100 Meds/Results Medications: Active Medications Generic Name Dose Route Start Last Admin Trade Name Freq PRN Reason Stop Dose Admin Acetaminophen 500 mg 04/15/24 11:18 Acetaminophen 500 Mg Tablet PO Q6H PRN Pain Rated 1-3 Enoxaparin Sodium 40 mg 04/16/24 09:00 04/17/24 09:23 Enoxaparin 40 Mg/0.4 Ml Syringe SUB-Q 40 mg DAILY JULIANO Administration Ibuprofen 800 mg in 200 mls @ 400 mls/hr 04/12/24 10:32 04/13/24 05:46 Caldolor 800 Mg/200 Ml IVPB Infused Q6H PRN Infusion Mild Pain (1-3) Piperacillin/Tazobactam/Dextrose 3.375 gm in 50 mls @ 100 mls/hr 04/15/24 12:00 04/18/24 06:20 Zosyn 3.375 Gm/Ns 50 Ml IVPB Infused Q6H JULIANO Infusion Vancomycin HCl 1,500 mg in 500 mls @ 250 mls/hr 04/18/24 06:00 04/18/24 06:41 Vancomycin 1,500 Mg/Ns 500 Ml IVPB 04/18/24 09:00 250 mls/hr Q8H JULIANO Administration Vancomycin HCl 1,500 mg in 500 mls @ 250 mls/hr 04/19/24 00:00 Vancomycin 1,500 Mg/Ns 500 Ml IVPB Q18H JULIANO Ibuprofen 600 mg 04/15/24 08:23 04/18/24 00:23 Ibuprofen 600 Mg Tablet PO 600 mg Q6H PRN Administration Pain Rated 1-3 Lidocaine 1 patch 04/08/24 19:02 04/11/24 08:47 Lidocaine 5% Patch TRANSDERM 1 patch Q24H PRN Administration back pain Miscellaneous Information 1 each 04/16/24 00:01 04/16/24 18:23 Clinamix Needs To Be Renewed Or It Will Automatically Discontinue. XX 05/16/24 00:00 Not Given CLARIFY JULIANO Morphine Sulfate 2 mg 04/15/24 11:18 Morphine Sulfate (*Crx) 2 Mg/Ml Inj IV PUSH Q2H PRN Breakthrough Pain Rated 4-6 or NPO Morphine Sulfate 4 mg 04/15/24 11:18 Morphine Sulfate (*Crx) 4 Mg/Ml Inj IV PUSH Q2H PRN Breakthrough Pain Rated 7-10 or NPO Naloxone HCl 0.1 mg 04/15/24 11:18 Naloxone Hcl 0.4 Mg/Ml Vial IV PUSH Q2M PRN Opiate Reversal Ondansetron HCl 4 mg 04/08/24 13:45 04/17/24 17:19 Ondansetron Inj 4 Mg/2 Ml Vial IV PUSH 4 mg Q6H PRN Administration Nausea And Vomiting Oxycodone/Acetaminophen 1 tablet 04/15/24 11:18 04/18/24 05:52 Oxycodone/Acetaminophen (*Crx) 5-325 Mg Tablet PO 1 tablet Q4H PRN Administration Pain Rated 4-6 Oxycodone/Acetaminophen 1 tab 04/15/24 11:18 04/17/24 21:14 Oxycodone/Acetaminophen (*Crx) 10-325 Mg Tablet PO 1 tab Q6H PRN Administration Pain Rated 7-10 Pantoprazole Sodium 40 mg 04/16/24 09:00 04/17/24 09:22 Pantoprazole 40 Mg Tablet PO 40 mg QAM JULIANO Administration Polyethylene Glycol 17 gm 04/14/24 13:10 04/17/24 09:23 Polyethylene Glycol 3350 17 Gm Powd.Pack PO Not Given QAM JULIANO Potassium Chloride 20 meq 04/16/24 08:00 04/17/24 09:22 Potassium Chloride 20 Meq Er Tablet PO 20 meq DAILY@0800 JULIANO Administration Senna/Docusate Sodium 2 tab 04/14/24 21:00 04/17/24 21:13 Senna/Docusate Sodium Tablet PO 2 tab HS JULIANO Administration Sertraline HCl 50 mg 04/09/24 09:00 04/17/24 09:22 Sertraline Hcl 50 Mg Tablet PO 50 mg DAILY JULIANO Administration Sodium Chloride 20 ml 04/11/24 14:26 04/16/24 04:34 Central Line Flush IV PUSH 20 ml PRN PRN Administration after blood draws Sodium Chloride 10 ml 04/11/24 14:26 04/16/24 00:29 Central Line Flush IV PUSH 10 ml PRN PRN Administration with TPN bag changes Sodium Chloride 10 ml 04/11/24 22:00 04/18/24 05:47 Central Line Flush IV PUSH 10 ml Q8HR JULIANO Administration Radiology Results: ITS Impressions MRCP 04/09/24 12:03 IMPRESSION: 1. Multiple tiny gallstones in the dependent aspect of the normal gallbladder. 2. Diffuse acute interstitial pancreatitis with prominent nonloculated peripancreatic fluid tracking into the intra and retroperitoneal soft tissue tissues. 3. No intra or extrahepatic biliary ductal dilation or evident choledocholithiasis. 4. Increased signal in the dependent lower lobes which could represent atelectasis or pneumonia. ADDENDUM: 04/09/24 1301 CORRECTION: Incorrect contrast agent is noted in the technique section. The study was performed without and with 16 mL ProHance intravenous contrast. Pelvis Ultrasound 04/09/24 13:37 IMPRESSION: 1. Unremarkable pelvic ultrasound. Chest/Abdomen/Pelvis CTA 04/11/24 12:59 IMPRESSION: 1. No evident pulmonary embolism. Sensitivity mildly decreased in the segmental and more prominently in the subsegmental pulmonary arteries due to is suboptimal opacification of the pulmonary arteries as well as small amount of respiratory and streak artifact. 2. Small left pleural effusion with partial collapse of the left lower lobe and additional atelectasis in the right lower lobe. 3. Interval progression of nonloculated peripancreatic fluid and extensive stranding consistent with acute interstitial pancreatitis. 4. Small amount of ascites in the abdomen and pelvis with increased density of the fluid in the dependent cul-de-sac suggesting complex/exudative ascites which could be seen with small amount of hemoperitoneum or peritonitis. Chest X-Ray 04/14/24 08:29 IMPRESSION: Mild pulmonary vascular congestion with a left lower lobe infiltrate and likely adjacent effusion. Abdomen/Pelvis CT 04/14/24 08:35 IMPRESSION: 1. Continued progression in nonloculated peripancreatic fluid and stranding consistent with acute interstitial pancreatitis with no abscess, necrosis or hemorrhagic transformation. 2. Small amount of likely reactive ascites in the pelvis. 3. Unchanged small left pleural effusion with partial collapse left lower lobe. Labs Labs: Laboratory Results - last 24 hr 04/17/24 04/17/24 04/17/24 09:31 11:34 18:27 WBC RBC Hgb Hct MCV MCH MCHC RDW Plt Count MPV Immature Gran % (Auto) Neut % (Auto) Lymph % (Auto) [place] % (Auto) Eos % (Auto) Baso % (Auto) Lymph # (Auto) [place] # (Auto) Eos # (Auto) Baso # (Auto) Abs Immat Gran (auto) Absolute Neuts (auto) Absolute Nucleated RBC Nucleated RBC % Sodium Potassium Chloride Carbon Dioxide Anion Gap BUN Creatinine Estim Creat Clear Calc Estimated GFR Glucose POC Capillary Glucose 157 H 214 H 132 H Calcium Phosphorus Magnesium Transferrin Total Bilirubin AST ALT Alkaline Phosphatase Total Protein Albumin Vancomycin Trough 04/18/24 04/18/24 04/18/24 00:12 00:13 05:54 WBC 17.3 H RBC 3.18 L Hgb 8.0 L Hct 26.3 L MCV 82.7 MCH 25.2 L MCHC 30.4 L RDW 17.4 H Plt Count 262 MPV 9.5 Immature Gran % (Auto) 3.4 H Neut % (Auto) 84.0 H Lymph % (Auto) 7.8 L [place] % (Auto) 4.1 Eos % (Auto) 0.6 Baso % (Auto) 0.1 L Lymph # (Auto) 1.35 [place] # (Auto) 0.7 H Eos # (Auto) 0.1 Baso # (Auto) 0.0 Abs Immat Gran (auto) 0.58 H Absolute Neuts (auto) 14.5 H Absolute Nucleated RBC 0.020 H Nucleated RBC % 0.1 Sodium 139 Potassium 4.0 Chloride 105 Carbon Dioxide 27 Anion Gap 7 BUN 12 Creatinine 1.18 H Estim Creat Clear Calc 63 Estimated GFR 54 L Glucose 113 H POC Capillary Glucose 103 Calcium 8.8 Phosphorus 5.4 H Magnesium 2.2 Transferrin 147 L Total Bilirubin 0.8 AST 22 ALT 40 H Alkaline Phosphatase 211 H Total Protein 6.0 L Albumin 3.0 L Vancomycin Trough 20.8 H
[2024-04-18] MEDS: SERTRALINE HCL 50 MG TABLET PO (08:07)
[2024-04-18] MEDS: POTASSIUM CHLORIDE 20 MEQ ER TABLET PO (08:07)
[2024-04-18] MEDS: PANTOPRAZOLE 40 MG TABLET PO (08:08)
[2024-04-18] MEDS: ONDANSETRON INJ 4 MG/2 ML VIAL IV PUSH (08:09)
[2024-04-18 08:13] LABS: Reference Lab Test Name Mixing Study
[2024-04-18 08:15] LABS: INR 1.2
[2024-04-18 08:19] LABS: Triglycerides 236 mg/dL (<150)
--- NOTE | 2024-04-18 08:49 | P.PNIM_ITS ---
Progress Note: A&P Assessment and Plan (1) Prolonged PTT: Code(s): R79.1 - Abnormal coagulation profile Status: Acute (2) Anxiety and depression: Code(s): F41.9 - Anxiety disorder, unspecified; F32.A - Depression, unspecified Status: Acute (3) Depression: Code(s): F32.A - Depression, unspecified Status: Acute (4) Acute pancreatitis: Qualifiers: Acute pancreatitis complication: unspecified Pancreatitis type: unspecified pancreatitis type Qualified Code(s): K85.90 - Acute pancreatitis without necrosis or infection, unspecified Code(s): K85.90 - Acute pancreatitis without necrosis or infection, unspecified Status: Acute (5) Cholelithiasis: Qualifiers: Biliary obstruction: with biliary obstruction Cholecystitis presence: without cholecystitis Cholelithiasis location: gallbladder Qualified Code(s): K80.21 - Calculus of gallbladder without cholecystitis with obstruction Code(s): K80.20 - Calculus of gallbladder without cholecystitis without obstruction Status: Chronic Plan Gallstone pancreatitis: Code(s): K85.10 - Biliary acute pancreatitis without necrosis or infection Status: Acute Assessment and Plan: Patient presents with abdominal pain and found to have lipase >40K. CTA chest/abdomen/pelvis shows acute interstitial pancreatitis with prominent nonloculated acute peripancreatic fluid collections and stranding, tiny GS versus porcelain gallbladder with mural calcification along the dependent wall of the otherwise normal GB, no evident choledocholithiasis or intra or extra hepatic biliary ductal dilation and mild dependent atelectasis in the lower lobes. No pulmonary embolism or other acute cardiopulmonary disease. MRCP showing similar findings from the CT scan and no evidence of choledocholithiasis. Patient with GS Pancreatitis. General surgery and GI consulted and appreciate their input. TG 198. Lipase trending downward at 300. TB better at 1.1 and other liver tests normalize Repeat CT A/P (04/11) showing interval progression of non loculated peripancreatic fluid and extensive stranding consistent with acute interstitial pancreatitis Diet started. Continue TPN. Supportive care. Follow LFTs and lipase levels. Cholelithiasis: Qualifiers: Biliary obstruction: with biliary obstruction Cholecystitis presence: without cholecystitis Cholelithiasis location: gallbladder Qualified Code(s): K80.21 - Calculus of gallbladder without cholecystitis with obstruction Code(s): K80.20 - Calculus of gallbladder without cholecystitis without obstruction Status: Chronic Assessment and Plan: As above sepsis Leukocytosis, white blood cell is trending up, patient also has tachycardia tachypnea low-grade fever Patient is afebrile, but leukocytosis trending up. UA shows pyuria cxr:a left lower lobe infiltrate and likely adjacent effusion. CT abdomen pelvis shows no abscess necrosis or hemorrhagic transformation, small amount reactive ascites in the pelvis, small left pleural effusion with partial collapse of left lower lobe Possible reaction to pancreatitis, but also has risks of intra-abdominal infection, currently patient is on TPN that places patient on risk of infection also Patient is allergic to Levaquin Sepsis likely secondary to UTI and possible pneumonia Continue vancomycin Zosyn 04/16 Patient is afebrile, no better growth from blood culture, fungal culture pending. Leukocytosis persists, continue Zosyn, discontinue vancomycin. Transaminitis: Code(s): R74.01 - Elevation of levels of liver transaminase levels Status: Acute Assessment and Plan: As above. Elevated partial thromboplastin time (PTT): Code(s): R79.1 - Abnormal coagulation profile Status: Chronic Assessment and Plan: PTT 197, previously 159 on 06/27/2023. Patient has previously been referred to Hematology but has not follow-up with this. Her mother and maternal grandmother have some form of clotting disorder and are both She has bleeding gums but no miscarriages or early bruising. 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 Hgb 13.2 upon arriva l in the ED Pelvic ultrasound was unremarkable. Could be related to her elevated PTT. HH has trended down to 8.4 today but could be related to fluids. service promoter salesperson consulted and appreciate their input Hypokalemia: Code(s): E87.6 - Hypokalemia Status: Acute Assessment and Plan: Repeated, potassium still low. Mag 2.2 Replace potassium Replace Phos as well. Subjective Date/time seen: 04/18/24 08:49 Interval history: Patient feels better today, TPN is stopped, tolerated liquid diet today. Patient afebrile, blood pressure stable, leukocytosis persists, urine culture has no growth so far, and no bacterial growth from blood culture, fungal culture pending. Exam Narrative: GENERAL: Pleasant, in no acute distress. Well-nourished. - EYES: EOMI. Anicteric. - HENT: Moist mucous membranes. - LUNGS: Clear to auscultation bilateral ly, no wheezing, rhonchi, or rales. Tachypnea - CARDIOVASCULAR: Regular rate and rhyth m. No murmur. No JVD. Tachycardia - ABDOMEN: Soft, diffuse tender and some distended. No palpable masses. - EXTREMITIES: No edema. Peripheral puls es 2+. Non-tender. - NEUROLOGIC: No focal neurological defi cits. CN II-XII grossly intact. - PSYCHIATRIC: Awake, Alert and oriented x 3. Appropriate mood and affect. - SKIN: No rashes or lesions. Warm. - LYMPH: No cervical lymphadenopathy. Objective Data Vital Signs Vital Signs: Vital Signs - 24 hr 04/17/24 09:24 04/17/24 12:00 04/17/24 16:00 Temperature 97.3 F L 98.0 F Pulse Rate 110 H 98 Respiratory Rate 18 18 Blood Pressure 128/73 137/74 Pulse Oximetry 97 98 Oxygen Delivery Room Air 04/17/24 20:00 04/18/24 00:00 04/18/24 04:00 Temperature 98.5 F 98.0 F 98.2 F Pulse Rate 82 104 H 93 Respiratory Rate 18 18 18 Blood Pressure 127/67 125/67 114/63 Pulse Oximetry 97 98 97 Oxygen Delivery Intake/Output Intake/Output: Intake & Output 04/15/24 04/16/24 04/18/24 04/18/24 23:59 23:59 00:59 23:59 Intake Total 3562.5 3647 3440 100 Balance 3562.5 3647 3440 100 Meds/Results Medications: Active Medications Generic Name Dose Route Start Last Admin Trade Name Freq PRN Reason Stop Dose Admin Acetaminophen 500 mg 04/15/24 11:18 Acetaminophen 500 Mg Tablet PO Q6H PRN Pain Rated 1-3 Enoxaparin Sodium 40 mg 04/16/24 09:00 04/17/24 09:23 Enoxaparin 40 Mg/0.4 Ml Syringe SUB-Q 40 mg DAILY JULIANO Administration Ibuprofen 800 mg in 200 mls @ 400 mls/hr 04/12/24 10:32 04/13/24 05:46 Caldolor 800 Mg/200 Ml IVPB Infused Q6H PRN Infusion Mild Pain (1-3) Piperacillin/Tazobactam/Dextrose 3.375 gm in 50 mls @ 100 mls/hr 04/15/24 12:00 04/18/24 06:20 Zosyn 3.375 Gm/Ns 50 Ml IVPB Infused Q6H JULIANO Infusion Vancomycin HCl 1,500 mg in 500 mls @ 250 mls/hr 04/18/24 06:00 04/18/24 06:41 Vancomycin 1,500 Mg/Ns 500 Ml IVPB 04/18/24 09:00 250 mls/hr Q8H JULIANO Administration Vancomycin HCl 1,500 mg in 500 mls @ 250 mls/hr 04/19/24 00:00 Vancomycin 1,500 Mg/Ns 500 Ml IVPB Q18H JULIANO Ibuprofen 600 mg 04/15/24 08:23 04/18/24 08:07 Ibuprofen 600 Mg Tablet PO 600 mg Q6H PRN Administration Pain Rated 1-3 Lidocaine 1 patch 04/08/24 19:02 04/11/24 08:47 Lidocaine 5% Patch TRANSDERM 1 patch Q24H PRN Administration back pain Miscellaneous Information 1 each 04/16/24 00:01 04/16/24 18:23 Clinamix Needs To Be Renewed Or It Will Automatically Discontinue. XX 05/16/24 00:00 Not Given CLARIFY [facility] Morphine Sulfate 2 mg 04/15/24 11:18 Morphine Sulfate (*Crx) 2 Mg/Ml Inj IV PUSH Q2H PRN Breakthrough Pain Rated 4-6 or NPO Morphine Sulfate 4 mg 04/15/24 11:18 Morphine Sulfate (*Crx) 4 Mg/Ml Inj IV PUSH Q2H PRN Breakthrough Pain Rated 7-10 or NPO Naloxone HCl 0.1 mg 04/15/24 11:18 Naloxone Hcl 0.4 Mg/Ml Vial IV PUSH Q2M PRN Opiate Reversal Ondansetron HCl 4 mg 04/08/24 13:45 04/18/24 08:09 Ondansetron Inj 4 Mg/2 Ml Vial IV PUSH 4 mg Q6H PRN Administration Nausea And Vomiting Oxycodone/Acetaminophen 1 tablet 04/15/24 11:18 04/18/24 05:52 Oxycodone/Acetaminophen (*Crx) 5-325 Mg Tablet PO 1 tablet Q4H PRN Administration Pain Rated 4-6 Oxycodone/Acetaminophen 1 tab 04/15/24 11:18 04/17/24 21:14 Oxycodone/Acetaminophen (*Crx) 10-325 Mg Tablet PO 1 tab Q6H PRN Administration Pain Rated 7-10 Pantoprazole Sodium 40 mg 04/16/24 09:00 04/18/24 08:08 Pantoprazole 40 Mg Tablet PO 40 mg QAM JULIANO Administration Polyethylene Glycol 17 gm 04/14/24 13:10 04/18/24 08:08 Polyethylene Glycol 3350 17 Gm Powd.Pack PO Not Given QAM JULIANO Potassium Chloride 20 meq 04/16/24 08:00 04/18/24 08:07 Potassium Chloride 20 Meq Er Tablet PO 20 meq DAILY@0800 JULIANO Administration Senna/Docusate Sodium 2 tab 04/14/24 21:00 04/17/24 21:13 Senna/Docusate Sodium Tablet PO 2 tab HS JULIANO Administration Sertraline HCl 50 mg 04/09/24 09:00 04/18/24 08:07 Sertraline Hcl 50 Mg Tablet PO 50 mg DAILY JULIANO Administration Sodium Chloride 20 ml 04/11/24 14:26 04/16/24 04:34 Central Line Flush IV PUSH 20 ml PRN PRN Administration after blood draws Sodium Chloride 10 ml 04/11/24 14:26 04/16/24 00:29 Central Line Flush IV PUSH 10 ml PRN PRN Administration with TPN bag changes Sodium Chloride 10 ml 04/11/24 22:00 04/18/24 05:47 Central Line Flush IV PUSH 10 ml Q8HR JULIANO Administration Radiology Results: ITS Impressions MRCP 04/09/24 12:03 IMPRESSION: 1. Multiple tiny gallstones in the dependent aspect of the normal gallbladder. 2. Diffuse acute interstitial pancreatitis with prominent nonloculated peripancreatic fluid tracking into the intra and retroperitoneal soft tissue tissues. 3. No intra or extrahepatic biliary ductal dilation or evident choledocholithiasis. 4. Increased signal in the dependent lower lobes which could represent atelectasis or pneumonia. ADDENDUM: 04/09/24 1301 CORRECTION: Incorrect contrast agent is noted in the technique section. The study was performed without and with 16 mL ProHance intravenous contrast. Pelvis Ultrasound 04/09/24 13:37 IMPRESSION: 1. Unremarkable pelvic ultrasound. Chest/Abdomen/Pelvis CTA 04/11/24 12:59 IMPRESSION: 1. No evident pulmonary embolism. Sensitivity mildly decreased in the segmental and more prominently in the subsegmental pulmonary arteries due to is suboptimal opacification of the pulmonary arteries as well as small amount of respiratory and streak artifact. 2. Small left pleural effusion with partial collapse of the left lower lobe and additional atelectasis in the right lower lobe. 3. Interval progression of nonloculated peripancreatic fluid and extensive stranding consistent with acute interstitial pancreatitis. 4. Small amount of ascites in the abdomen and pelvis with increased density of the fluid in the dependent cul-de-sac suggesting complex/exudative ascites which could be seen with small amount of hemoperitoneum or peritonitis. Chest X-Ray 04/14/24 08:29 IMPRESSION: Mild pulmonary vascular congestion with a left lower lobe infiltrate and likely adjacent effusion. Abdomen/Pelvis CT 04/14/24 08:35 IMPRESSION: 1. Continued progression in nonloculated peripancreatic fluid and stranding consistent with acute interstitial pancreatitis with no abscess, necrosis or hemorrhagic transformation. 2. Small amount of likely reactive ascites in the pelvis. 3. Unchanged small left pleural effusion with partial collapse left lower lobe. Labs Labs: Laboratory Results - last 24 hr 04/09/24 04/17/24 04/17/24 19:28 09:31 11:34 WBC RBC Hgb Hct MCV MCH MCHC RDW Plt Count MPV Immature Gran % (Auto) Neut % (Auto) Lymph % (Auto) [place] % (Auto) Eos % (Auto) Baso % (Auto) Lymph # (Auto) [place] # (Auto) Eos # (Auto) Baso # (Auto) Abs Immat Gran (auto) Absolute Neuts (auto) Absolute Nucleated RBC Nucleated RBC % Sodium Potassium Chloride Carbon Dioxide Anion Gap BUN Creatinine Estim Creat Clear Calc Estimated GFR Glucose POC Capillary Glucose 157 H 214 H Calcium Phosphorus Magnesium Transferrin Total Bilirubin AST ALT Alkaline Phosphatase Total Protein Albumin Triglycerides Vancomycin Trough Ref Lab Test Name Mixing study Ref Lab Test Result See comment 04/17/24 04/18/24 04/18/24 18:27 00:12 00:13 WBC RBC Hgb Hct MCV MCH MCHC RDW Plt Count MPV Immature Gran % (Auto) Neut % (Auto) Lymph % (Auto) [place] % (Auto) Eos % (Auto) Baso % (Auto) Lymph # (Auto) [place] # (Auto) Eos # (Auto) Baso # (Auto) Abs Immat Gran (auto) Absolute Neuts (auto) Absolute Nucleated RBC Nucleated RBC % Sodium Potassium Chloride Carbon Dioxide Anion Gap BUN Creatinine Estim Creat Clear Calc Estimated GFR Glucose POC Capillary Glucose 132 H 103 Calcium Phosphorus Magnesium Transferrin Total Bilirubin AST ALT Alkaline Phosphatase Total Protein Albumin Triglycerides Vancomycin Trough 20.8 H Ref Lab Test Name Ref Lab Test Result 04/18/24 05:54 WBC 17.3 H RBC 3.18 L Hgb 8.0 L Hct 26.3 L MCV 82.7 MCH 25.2 L MCHC 30.4 L RDW 17.4 H Plt Count 262 MPV 9.5 Immature Gran % (Auto) 3.4 H Neut % (Auto) 84.0 H Lymph % (Auto) 7.8 L [place] % (Auto) 4.1 Eos % (Auto) 0.6 Baso % (Auto) 0.1 L Lymph # (Auto) 1.35 [place] # (Auto) 0.7 H Eos # (Auto) 0.1 Baso # (Auto) 0.0 Abs Immat Gran (auto) 0.58 H Absolute Neuts (auto) 14.5 H Absolute Nucleated RBC 0.020 H Nucleated RBC % 0.1 Sodium 139 Potassium 4.0 Chloride 105 Carbon Dioxide 27 Anion Gap 7 BUN 12 Creatinine 1.18 H Estim Creat Clear Calc 63 Estimated GFR 54 L Glucose 113 H POC Capillary Glucose Calcium 8.8 Phosphorus 5.4 H Magnesium 2.2 Transferrin 147 L Total Bilirubin 0.8 AST 22 ALT 40 H Alkaline Phosphatase 211 H Total Protein 6.0 L Albumin 3.0 L Triglycerides 236 H Vancomycin Trough Ref Lab Test Name Ref Lab Test Result
[2024-04-18 10:14] LABS: Partial Thromboplastin Time > 200.0 Seconds (22.3-36.8)
[2024-04-18 12:00] VITALS: BP 118/58; PULSE 107; RESP 19; TEMP 36.9; O2SAT 97
[2024-04-18 16:00] VITALS: BP 101/62; PULSE 105; RESP 18; TEMP 36.8; O2SAT 97
--- NOTE | 2024-04-18 18:06 | P.PNGI_ITS ---
Progress Note: A&P Assessment and Plan (1) Gallstone pancreatitis: Code(s): K85.10 - Biliary acute pancreatitis without necrosis or infection Status: Acute Assessment and Plan: s/p tpn, still poor appetite and encouraging to eat more as tolerated (2) Upper abdominal pain: Code(s): R10.10 - Upper abdominal pain, unspecified Status: Acute Assessment and Plan: [employer] was discontinued pain meds prn now no major changes (3) Transaminitis: Code(s): R74.01 - Elevation of levels of liver transaminase levels Status: Acute Assessment and Plan: from pancreatitis no need of ercp surgery on board, at some point will need lap blanquita but probably after resolution of pancreatitis (4) Leukocytosis: Code(s): D72.829 - Elevated white blood cell count, unspecified Status: Acute Assessment and Plan: this also could be stress response or from pancreatitis discontinue iv vancomycin (5) Nausea: Code(s): R11.0 - Nausea Status: Acute Assessment and Plan: on meds Subjective Date/time seen: 04/18/24 18:06 Interval history: still bloated, no more TPN, eating some Review of Systems Review of Systems: All systems reviewed & are unremarkable except as noted in HPI and below Exam Const: General: no acute distress Orientation/consciousness: patient oriented x3 HENMT: Face/Nose/Sinus: Normal nares present Eyes: Sclera: sclerae normal Neck: Neck: supple Resp: Effort & Inspection: normal respiratory effort Cardio: Rate: regular rate GI: Inspection: non-distended GI Palp: Yes Soft to palpation, Yes Tenderness to palpation present (GI) (diffusely tender- similar) and No Guarding due to palpation present (GI) Skin: General skin exam: no rashes or lesions noted Neuro: General: moves all extremities Extrem: General: no pedal edema and no calf tenderness Psych: Mental Status: mental status grossly normal Objective Data Vital Signs Vital Signs: Vital Signs - 24 hr 04/17/24 20:00 04/18/24 00:00 04/18/24 04:00 Temperature 98.5 F 98.0 F 98.2 F Pulse Rate 82 104 H 93 Respiratory Rate 18 18 18 Blood Pressure 127/67 125/67 114/63 Pulse Oximetry 97 98 97 Oxygen Delivery 04/18/24 08:00 04/18/24 08:07 04/18/24 12:00 Temperature 98 F 98.5 F Pulse Rate 96 107 H Respiratory Rate 17 19 Blood Pressure 128/64 118/58 L Pulse Oximetry 97 97 Oxygen Delivery Room Air 04/18/24 16:00 Temperature 98.3 F Pulse Rate 105 H Respiratory Rate 18 Blood Pressure 101/62 Pulse Oximetry 97 Oxygen Delivery Intake/Output Intake/Output: Intake & Output 04/15/24 04/16/24 04/18/24 04/18/24 23:59 23:59 00:59 23:59 Intake Total 3562.5 3647 3440 1402 Balance 3562.5 3647 3440 1402 Meds/Results Medications: Active Medications Generic Name Dose Route Start Last Admin Trade Name Freq PRN Reason Stop Dose Admin Acetaminophen 500 mg 04/15/24 11:18 Acetaminophen 500 Mg Tablet PO Q6H PRN Pain Rated 1-3 Ibuprofen 800 mg in 200 mls @ 400 mls/hr 04/12/24 10:32 04/13/24 05:46 Caldolor 800 Mg/200 Ml IVPB Infused Q6H PRN Infusion Mild Pain (1-3) Piperacillin/Tazobactam/Dextrose 3.375 gm in 50 mls @ 100 mls/hr 04/15/24 12:00 04/18/24 17:03 Zosyn 3.375 Gm/Ns 50 Ml IVPB 100 mls/hr Q6H JULIANO Administration Ibuprofen 600 mg 04/15/24 08:23 04/18/24 08:07 Ibuprofen 600 Mg Tablet PO 600 mg Q6H PRN Administration Pain Rated 1-3 Lidocaine 1 patch 04/08/24 19:02 04/11/24 08:47 Lidocaine 5% Patch TRANSDERM 1 patch Q24H PRN Administration back pain Miscellaneous Information 1 each 04/16/24 00:01 04/16/24 18:23 Clinamix Needs To Be Renewed Or It Will Automatically Discontinue. XX 05/16/24 00:00 Not Given CLARIFY JULIANO Morphine Sulfate 2 mg 04/15/24 11:18 Morphine Sulfate (*Crx) 2 Mg/Ml Inj IV PUSH Q2H PRN Breakthrough Pain Rated 4-6 or NPO Morphine Sulfate 4 mg 04/15/24 11:18 Morphine Sulfate (*Crx) 4 Mg/Ml Inj IV PUSH Q2H PRN Breakthrough Pain Rated 7-10 or NPO Naloxone HCl 0.1 mg 04/15/24 11:18 Naloxone Hcl 0.4 Mg/Ml Vial IV PUSH Q2M PRN Opiate Reversal Ondansetron HCl 4 mg 04/08/24 13:45 04/18/24 08:09 Ondansetron Inj 4 Mg/2 Ml Vial IV PUSH 4 mg Q6H PRN Administration Nausea And Vomiting Oxycodone/Acetaminophen 1 tablet 04/15/24 11:18 04/18/24 16:26 Oxycodone/Acetaminophen (*Crx) 5-325 Mg Tablet PO 1 tablet Q4H PRN Administration Pain Rated 4-6 Oxycodone/Acetaminophen 1 tab 04/15/24 11:18 04/17/24 21:14 Oxycodone/Acetaminophen (*Crx) 10-325 Mg Tablet PO 1 tab Q6H PRN Administration Pain Rated 7-10 Pantoprazole Sodium 40 mg 04/16/24 09:00 04/18/24 08:08 Pantoprazole 40 Mg Tablet PO 40 mg QAM JULIANO Administration Polyethylene Glycol 17 gm 04/14/24 13:10 04/18/24 08:08 Polyethylene Glycol 3350 17 Gm Powd.Pack PO Not Given QAM JULIANO Potassium Chloride 20 meq 04/16/24 08:00 04/18/24 08:07 Potassium Chloride 20 Meq Er Tablet PO 20 meq DAILY@0800 JULIANO Administration Senna/Docusate Sodium 2 tab 04/14/24 21:00 04/17/24 21:13 Senna/Docusate Sodium Tablet PO 2 tab HS JULIANO Administration Sertraline HCl 50 mg 04/09/24 09:00 04/18/24 08:07 Sertraline Hcl 50 Mg Tablet PO 50 mg DAILY JULIANO Administration Sodium Chloride 20 ml 04/11/24 14:26 04/16/24 04:34 Central Line Flush IV PUSH 20 ml PRN PRN Administration after blood draws Sodium Chloride 10 ml 04/11/24 14:26 04/16/24 00:29 Central Line Flush IV PUSH 10 ml PRN PRN Administration with TPN bag changes Sodium Chloride 10 ml 04/11/24 22:00 04/18/24 17:03 Central Line Flush IV PUSH 10 ml Q8HR JULIANO Administration Radiology Results: ITS Impressions MRCP 04/09/24 12:03 IMPRESSION: 1. Multiple tiny gallstones in the dependent aspect of the normal gallbladder. 2. Diffuse acute interstitial pancreatitis with prominent nonloculated peripancreatic fluid tracking into the intra and retroperitoneal soft tissue tissues. 3. No intra or extrahepatic biliary ductal dilation or evident choledocholithiasis. 4. Increased signal in the dependent lower lobes which could represent atelectasis or pneumonia. ADDENDUM: 04/09/24 1301 CORRECTION: Incorrect contrast agent is noted in the technique section. The study was performed without and with 16 mL ProHance intravenous contrast. Pelvis Ultrasound 04/09/24 13:37 IMPRESSION: 1. Unremarkable pelvic ultrasound. Chest/Abdomen/Pelvis CTA 04/11/24 12:59 IMPRESSION: 1. No evident pulmonary embolism. Sensitivity mildly decreased in the segmental and more prominently in the subsegmental pulmonary arteries due to is suboptimal opacification of the pulmonary arteries as well as small amount of respiratory and streak artifact. 2. Small left pleural effusion with partial collapse of the left lower lobe and additional atelectasis in the right lower lobe. 3. Interval progression of nonloculated peripancreatic fluid and extensive stranding consistent with acute interstitial pancreatitis. 4. Small amount of ascites in the abdomen and pelvis with increased density of the fluid in the dependent cul-de-sac suggesting complex/exudative ascites which could be seen with small amount of hemoperitoneum or peritonitis. Chest X-Ray 04/14/24 08:29 IMPRESSION: Mild pulmonary vascular congestion with a left lower lobe infiltrate and likely adjacent effusion. Abdomen/Pelvis CT 04/14/24 08:35 IMPRESSION: 1. Continued progression in nonloculated peripancreatic fluid and stranding consistent with acute interstitial pancreatitis with no abscess, necrosis or hemorrhagic transformation. 2. Small amount of likely reactive ascites in the pelvis. 3. Unchanged small left pleural effusion with partial collapse left lower lobe. Labs Labs: Laboratory Results - last 24 hr 04/09/24 04/17/24 04/18/24 19:28 18:27 00:12 WBC RBC Hgb Hct MCV MCH MCHC RDW Plt Count MPV Immature Gran % (Auto) Neut % (Auto) Lymph % (Auto) [place] % (Auto) Eos % (Auto) Baso % (Auto) Lymph # (Auto) [place] # (Auto) Eos # (Auto) Baso # (Auto) Abs Immat Gran (auto) Absolute Neuts (auto) Absolute Nucleated RBC Nucleated RBC % PT INR APTT Sodium Potassium Chloride Carbon Dioxide Anion Gap BUN Creatinine Estim Creat Clear Calc Estimated GFR Glucose POC Capillary Glucose 132 H Calcium Phosphorus Magnesium Transferrin Total Bilirubin AST ALT Alkaline Phosphatase Total Protein Albumin Triglycerides Vancomycin Trough 20.8 H Ref Lab Test Name Mixing study Ref Lab Test Result See comment 04/18/24 04/18/24 04/18/24 00:13 05:54 07:49 WBC 17.3 H RBC 3.18 L Hgb 8.0 L Hct 26.3 L MCV 82.7 MCH 25.2 L MCHC 30.4 L RDW 17.4 H Plt Count 262 MPV 9.5 Immature Gran % (Auto) 3.4 H Neut % (Auto) 84.0 H Lymph % (Auto) 7.8 L [place] % (Auto) 4.1 Eos % (Auto) 0.6 Baso % (Auto) 0.1 L Lymph # (Auto) 1.35 [place] # (Auto) 0.7 H Eos # (Auto) 0.1 Baso # (Auto) 0.0 Abs Immat Gran (auto) 0.58 H Absolute Neuts (auto) 14.5 H Absolute Nucleated RBC 0.020 H Nucleated RBC % 0.1 PT 15.0 H INR 1.2 APTT > 200.0 H* Sodium 139 Potassium 4.0 Chloride 105 Carbon Dioxide 27 Anion Gap 7 BUN 12 Creatinine 1.18 H Estim Creat Clear Calc 63 Estimated GFR 54 L Glucose 113 H POC Capillary Glucose 103 Calcium 8.8 Phosphorus 5.4 H Magnesium 2.2 Transferrin 147 L Total Bilirubin 0.8 AST 22 ALT 40 H Alkaline Phosphatase 211 H Total Protein 6.0 L Albumin 3.0 L Triglycerides 236 H Vancomycin Trough Ref Lab Test Name Ref Lab Test Result
[2024-04-18 20:00] VITALS: BP 121/70; PULSE 101; RESP 18; TEMP 36.8; O2SAT 97
[2024-04-18] MEDS: oxyCODONE/ACETAMINOPHEN (*CRX) 10-325 MG TABLET 1 TAB PO (20:40)
[2024-04-18] MEDS: SENNA/DOCUSATE SODIUM TABLET 2 TAB PO (20:41)
[2024-04-19] VITALS: BP 114/65; PULSE 98; RESP 18; TEMP 36.8; O2SAT 100
[2024-04-19 04:00] VITALS: BP 120/64; PULSE 113; RESP 18; TEMP 36.9; O2SAT 95
[2024-04-19] MEDS: PIPERACILLN/TAZ 3.375GM/NS50ML 3.375 GM/50 ML BAG IVPB (05:03)
[2024-04-19] MEDS: oxyCODONE/ACETAMINOPHEN (*CRX) 10-325 MG TABLET 1 TAB PO (05:04)
[2024-04-19] MEDS: CENTRAL LINE FLUSH 10 ML IV PUSH ×3 (05:07→21:14)
[2024-04-19 05:12] LABS: Basophils Percent Auto 0.1 % (0.2-1.2); Eosinophils Absolute Auto 0.1 K/mm3 (0-0.3); Eosinophils Percent Auto 0.5 % (0-4.4); Hemoglobin 7.6 g/dL (12.0-15.0); Immature Granulocyte Absolute 0.28 K/mm3 (0.00-0.031); Immature Granulocyte Percent A 1.9 % (0-0.5); Lymphocytes Absolute Auto 1.16 K/mm3 (0.9-3.2); Lymphocytes Percent Auto 7.7 % (18.3-44.2); Mean Corpuscular HGB Conc 30.4 g/dl (32-36); Mean Corpuscular Volume 82.2 fl (80-100); Mean Platelet Volume 9.9 fl (7.4-10.4); Monocytes Absolute Auto 0.5 K/mm3 (0.1-0.6); Monocytes Percent Auto 3.4 % (2.6-8.5); Neutrophils Percent Auto 86.4 % (45.5-73.1); Platelet Count Result 294 k/mm3 (150-375); Red Blood Count 3.04 M/mm3 (4.2-5.4); Red Cell Distribution Width 17.5 % (11.5-14.5); White Blood Count 15.1 K/mm3 (4.5-10.0)
[2024-04-19 05:28] LABS: Anion Gap 8 mmol/L (4-12); Blood Urea Nitrogen 12 mg/dL (7-17); Calcium 8.6 mg/dL (8.4-10.2); Carbon Dioxide 26 mmol/L (22-30); Chloride 105 mmol/L (98-107); Estimated CRCL calculation 60 ml/min; Estimated Glomerular Filt Rate 50; Glucose 120 mg/dL (65-110); Lipase 365 U/L (23-300); Potassium 3.9 mmol/L (3.4-5.0); Sodium 139 mmol/L (137-145)
[2024-04-19 05:39] LABS: CRP 19.8 mg/dL (<1.0)
[2024-04-19 08:00] VITALS: BP 115/62; PULSE 108; RESP 20; TEMP 36.5; O2SAT 98
[2024-04-19] MEDS: PANTOPRAZOLE 40 MG TABLET PO (08:29)
[2024-04-19] MEDS: POTASSIUM CHLORIDE 20 MEQ ER TABLET PO (08:29)
[2024-04-19] MEDS: SERTRALINE HCL 50 MG TABLET PO (08:29)
[2024-04-19] MEDS: IBUPROFEN 600 MG TABLET PO (08:33)
--- NOTE | 2024-04-19 08:36 | PM.PNGS ---
Progress Note: A&P Assessment and Plan (1) Leukocytosis: Qualifiers: Leukocytosis type: bandemia Qualified Code(s): D72.825 - Bandemia Code(s): D72.829 - Elevated white blood cell count, unspecified Status: Acute Assessment and Plan: Improving, suspect this was due to urinary tract infection. Not sure. Continue IV Zosyn, recommend discontinue vancomycin (2) Acute pancreatitis: Qualifiers: Acute pancreatitis complication: unspecified Pancreatitis type: unspecified pancreatitis type Qualified Code(s): K85.90 - Acute pancreatitis without necrosis or infection, unspecified Code(s): K85.90 - Acute pancreatitis without necrosis or infection, unspecified Status: Acute Assessment and Plan: Lipase elevated again today, CRP about the same as it was 3 days ago. Will cut patient back to low-fat diet. Continue to follow pain and CRPP, lipase. Patient to have repeat CT scan today to again check for complications of pancreatitis. (3) Cholelithiasis: Qualifiers: Biliary obstruction: with biliary obstruction Cholecystitis presence: without cholecystitis Cholelithiasis location: gallbladder Qualified Code(s): K80.21 - Calculus of gallbladder without cholecystitis with obstruction Code(s): K80.20 - Calculus of gallbladder without cholecystitis without obstruction Status: Chronic Assessment and Plan: No acute cholecystitis noted but will eventually need laparoscopic cholecystectomy as gallstones are likely the cause of her acute pancreatitis (4) Elevated partial thromboplastin time (PTT): Code(s): R79.1 - Abnormal coagulation profile Status: Chronic Assessment and Plan: Evaluation underway, most likely would seem to be lupus anticoagulant. Subjective Subjective Date/Time Seen: 04/19/24 08:36 Patient reports: still having pain (Left upper quadrant, gets relief with oral narcotic analgesics), tolerating a regular diet, voiding w/o difficulty, bowel movement and afebrile Review of Systems Review of Systems: All systems reviewed & are unremarkable except as noted in HPI and below (HPI) Exam Const: General: comfortable, no acute distress, alert, awake and tired appearing Orientation/consciousness: patient oriented x3 GI: Inspection: normal to inspection and non-distended GI Palp: Yes Soft to palpation, Yes Tenderness to palpation present (GI) (Worst in left upper quadrant, minimal or no tenderness right upper quadrant), Yes Guarding due to palpation present (GI) and No Palpable mass present Neuro: General: patient oriented x3 and no focal motor deficits Extrem: General: no calf tenderness and no edema Psych: Affect: normal affect Insight: Good insight present (Psych) Judgement: Good judgement present (Psych) Objective Data Vital Signs Vital Signs: Vital Signs - 24 hr 04/18/24 12:00 04/18/24 16:00 04/18/24 20:00 Temperature 36.9 C 36.8 C 36.8 C Pulse Rate 107 H 105 H 101 H Respiratory Rate 19 18 18 Blood Pressure 118/58 L 101/62 121/70 Pulse Oximetry 97 97 97 Oxygen Delivery 04/18/24 20:00 04/19/24 00:00 04/19/24 04:00 Temperature 36.8 C 36.9 C Pulse Rate 98 113 H Respiratory Rate 18 18 Blood Pressure 114/65 120/64 Pulse Oximetry 100 95 Oxygen Delivery Room Air Intake/Output Intake/Output: Intake & Output 04/16/24 04/18/24 04/18/24 04/19/24 23:59 00:59 23:59 23:59 Intake Total 3647 3440 1912 100 Balance 3647 3440 1912 100 Meds/Results Medications: Active Medications Generic Name Dose Route Start Last Admin Trade Name Freq PRN Reason Stop Dose Admin Acetaminophen 500 mg 04/15/24 11:18 Acetaminophen 500 Mg Tablet PO Q6H PRN Pain Rated 1-3 Ibuprofen 800 mg in 200 mls @ 400 mls/hr 04/12/24 10:32 04/13/24 05:46 Caldolor 800 Mg/200 Ml IVPB Infused Q6H PRN Infusion Mild Pain (1-3) Piperacillin/Tazobactam/Dextrose 3.375 gm in 50 mls @ 100 mls/hr 04/15/24 12:00 04/19/24 05:33 Zosyn 3.375 Gm/Ns 50 Ml IVPB Infused Q6H JULIANO Infusion Ibuprofen 600 mg 04/15/24 08:23 04/19/24 08:33 Ibuprofen 600 Mg Tablet PO 600 mg Q6H PRN Administration Pain Rated 1-3 Lidocaine 1 patch 04/08/24 19:02 04/11/24 08:47 Lidocaine 5% Patch TRANSDERM 1 patch Q24H PRN Administration back pain Miscellaneous Information 1 each 04/16/24 00:01 04/16/24 18:23 Clinamix Needs To Be Renewed Or It Will Automatically Discontinue. XX 05/16/24 00:00 Not Given CLARIFY JULIANO Morphine Sulfate 2 mg 04/15/24 11:18 Morphine Sulfate (*Crx) 2 Mg/Ml Inj IV PUSH Q2H PRN Breakthrough Pain Rated 4-6 or NPO Morphine Sulfate 4 mg 04/15/24 11:18 Morphine Sulfate (*Crx) 4 Mg/Ml Inj IV PUSH Q2H PRN Breakthrough Pain Rated 7-10 or NPO Naloxone HCl 0.1 mg 04/15/24 11:18 Naloxone Hcl 0.4 Mg/Ml Vial IV PUSH Q2M PRN Opiate Reversal Ondansetron HCl 4 mg 04/08/24 13:45 04/18/24 08:09 Ondansetron Inj 4 Mg/2 Ml Vial IV PUSH 4 mg Q6H PRN Administration Nausea And Vomiting Oxycodone/Acetaminophen 1 tablet 04/15/24 11:18 04/18/24 23:58 Oxycodone/Acetaminophen (*Crx) 5-325 Mg Tablet PO 1 tablet Q4H PRN Administration Pain Rated 4-6 Oxycodone/Acetaminophen 1 tab 04/15/24 11:18 04/19/24 05:04 Oxycodone/Acetaminophen (*Crx) 10-325 Mg Tablet PO 1 tab Q6H PRN Administration Pain Rated 7-10 Pantoprazole Sodium 40 mg 04/16/24 09:00 04/19/24 08:29 Pantoprazole 40 Mg Tablet PO 40 mg QAM JULIANO Administration Polyethylene Glycol 17 gm 04/14/24 13:10 04/19/24 08:30 Polyethylene Glycol 3350 17 Gm Powd.Pack PO Not Given QAM JULIANO Potassium Chloride 20 meq 04/16/24 08:00 04/19/24 08:29 Potassium Chloride 20 Meq Er Tablet PO 20 meq DAILY@0800 JULIANO Administration Senna/Docusate Sodium 2 tab 04/14/24 21:00 04/18/24 20:41 Senna/Docusate Sodium Tablet PO 2 tab HS JULIANO Administration Sertraline HCl 50 mg 04/09/24 09:00 04/19/24 08:29 Sertraline Hcl 50 Mg Tablet PO 50 mg DAILY JULIANO Administration Sodium Chloride 20 ml 04/11/24 14:26 04/16/24 04:34 Central Line Flush IV PUSH 20 ml PRN PRN Administration after blood draws Sodium Chloride 10 ml 04/11/24 14:26 04/16/24 00:29 Central Line Flush IV PUSH 10 ml PRN PRN Administration with TPN bag changes Sodium Chloride 10 ml 04/11/24 22:00 04/19/24 05:07 Central Line Flush IV PUSH 10 ml Q8HR JULIANO Administration Radiology Results: ITS Impressions MRCP 04/09/24 12:03 IMPRESSION: 1. Multiple tiny gallstones in the dependent aspect of the normal gallbladder. 2. Diffuse acute interstitial pancreatitis with prominent nonloculated peripancreatic fluid tracking into the intra and retroperitoneal soft tissue tissues. 3. No intra or extrahepatic biliary ductal dilation or evident choledocholithiasis. 4. Increased signal in the dependent lower lobes which could represent atelectasis or pneumonia. ADDENDUM: 04/09/24 1301 CORRECTION: Incorrect contrast agent is noted in the technique section. The study was performed without and with 16 mL ProHance intravenous contrast. Pelvis Ultrasound 04/09/24 13:37 IMPRESSION: 1. Unremarkable pelvic ultrasound. Chest/Abdomen/Pelvis CTA 04/11/24 12:59 IMPRESSION: 1. No evident pulmonary embolism. Sensitivity mildly decreased in the segmental and more prominently in the subsegmental pulmonary arteries due to is suboptimal opacification of the pulmonary arteries as well as small amount of respiratory and streak artifact. 2. Small left pleural effusion with partial collapse of the left lower lobe and additional atelectasis in the right lower lobe. 3. Interval progression of nonloculated peripancreatic fluid and extensive stranding consistent with acute interstitial pancreatitis. 4. Small amount of ascites in the abdomen and pelvis with increased density of the fluid in the dependent cul-de-sac suggesting complex/exudative ascites which could be seen with small amount of hemoperitoneum or peritonitis. Chest X-Ray 04/14/24 08:29 IMPRESSION: Mild pulmonary vascular congestion with a left lower lobe infiltrate and likely adjacent effusion. Abdomen/Pelvis CT 04/14/24 08:35 IMPRESSION: 1. Continued progression in nonloculated peripancreatic fluid and stranding consistent with acute interstitial pancreatitis with no abscess, necrosis or hemorrhagic transformation. 2. Small amount of likely reactive ascites in the pelvis. 3. Unchanged small left pleural effusion with partial collapse left lower lobe. Labs Labs: Laboratory Results - last 24 hr 04/18/24 04/19/24 07:49 05:03 WBC 15.1 H RBC 3.04 L Hgb 7.6 L Hct 25.0 L MCV 82.2 MCH 25.0 L MCHC 30.4 L RDW 17.5 H Plt Count 294 MPV 9.9 Immature Gran % (Auto) 1.9 H Neut % (Auto) 86.4 H Lymph % (Auto) 7.7 L [place] % (Auto) 3.4 Eos % (Auto) 0.5 Baso % (Auto) 0.1 L Lymph # (Auto) 1.16 [place] # (Auto) 0.5 Eos # (Auto) 0.1 Baso # (Auto) 0.0 Abs Immat Gran (auto) 0.28 H Absolute Neuts (auto) 13.0 H Absolute Nucleated RBC 0.000 Nucleated RBC % 0.0 PT 15.0 H INR 1.2 APTT > 200.0 H* Sodium 139 Potassium 3.9 Chloride 105 Carbon Dioxide 26 Anion Gap 8 BUN 12 Creatinine 1.25 H Estim Creat Clear Calc 60 Estimated GFR 50 L Glucose 120 H Calcium 8.6 C-Reactive Protein 19.8 H Lipase 365 H Lipase elevated again, CRP slightly higher than it was on 04/16/2024
--- NOTE | 2024-04-19 10:51 | PM.IMPN ---
Progress Note: A&P Assessment and Plan (1) Prolonged PTT: Code(s): R79.1 - Abnormal coagulation profile Status: Acute (2) Anxiety and depression: Code(s): F41.9 - Anxiety disorder, unspecified; F32.A - Depression, unspecified Status: Acute (3) Depression: Code(s): F32.A - Depression, unspecified Status: Acute (4) Acute pancreatitis: Qualifiers: Acute pancreatitis complication: unspecified Pancreatitis type: unspecified pancreatitis type Qualified Code(s): K85.90 - Acute pancreatitis without necrosis or infection, unspecified Code(s): K85.90 - Acute pancreatitis without necrosis or infection, unspecified Status: Acute (5) Cholelithiasis: Qualifiers: Biliary obstruction: with biliary obstruction Cholecystitis presence: without cholecystitis Cholelithiasis location: gallbladder Qualified Code(s): K80.21 - Calculus of gallbladder without cholecystitis with obstruction Code(s): K80.20 - Calculus of gallbladder without cholecystitis without obstruction Status: Chronic Plan Gallstone pancreatitis: Code(s): K85.10 - Biliary acute pancreatitis without necrosis or infection Status: Acute Assessment and Plan: Patient presents with abdominal pain and found to have lipase >40K. CTA chest/abdomen/pelvis shows acute interstitial pancreatitis with prominent nonloculated acute peripancreatic fluid collections and stranding, tiny GS versus porcelain gallbladder with mural calcification along the dependent wall of the otherwise normal GB, no evident choledocholithiasis or intra or extra hepatic biliary ductal dilation and mild dependent atelectasis in the lower lobes. No pulmonary embolism or other acute cardiopulmonary disease. MRCP showing similar findings from the CT scan and no evidence of choledocholithiasis. Patient with GS Pancreatitis. General surgery and GI consulted and appreciate their input. TG 198. Lipase trending downward at 300. TB better at 1.1 and other liver tests normalize Repeat CT A/P (04/11) showing interval progression of non loculated peripancreatic fluid and extensive stranding consistent with acute interstitial pancreatitis Received TPN, stopped. Patient is on liquid diet Pain is tolerable 04/19 Cholelithiasis: Qualifiers: Biliary obstruction: with biliary obstruction Cholecystitis presence: without cholecystitis Cholelithiasis location: gallbladder Qualified Code(s): K80.21 - Calculus of gallbladder without cholecystitis with obstruction Code(s): K80.20 - Calculus of gallbladder without cholecystitis without obstruction Status: Chronic Assessment and Plan: As above sepsis Leukocytosis, white blood cell is trending up, patient also has tachycardia tachypnea low-grade fever Patient is afebrile, but leukocytosis trending up. UA shows pyuria cxr:a left lower lobe infiltrate and likely adjacent effusion. CT abdomen pelvis shows no abscess necrosis or hemorrhagic transformation, small amount reactive ascites in the pelvis, small left pleural effusion with partial collapse of left lower lobe Possible reaction to pancreatitis, but also has risks of intra-abdominal infection, currently patient is on TPN that places patient on risk of infection also Patient is allergic to Levaquin Sepsis likely secondary to UTI and possible pneumonia Continue vancomycin Zosyn 04/16 Patient is afebrile, no better growth from blood culture, fungal culture pending. Leukocytosis persists, continue Zosyn, discontinue vancomycin. 04/19 WBC trending down and afeb, UCX negative and BCX negative, Cr is trending up, dc zosyn now Transaminitis: Code(s): R74.01 - Elevation of levels of liver transaminase levels Status: Acute Assessment and Plan: As above. Elevated partial thromboplastin time (PTT): Code(s): R79.1 - Abnormal coagulation profile Status: Chronic Assessment and Plan: PTT 197, previously 159 on 06/27/2023. Patient has previously been referred to Hematology but has not follow-up with this. Her mother and maternal grandmother have some form of clotting disorder and are both She has bleeding gums but no miscarriages or early bruising. 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 Hgb 13.2 upon arrival in the ED Pelvic ultrasound was unremarkable. Could be related to her elevated PTT. HH has trended down to 8.4 today but could be related to fluids. 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 Mag 2.2 Replace potassium Replace Phos as well. Subjective Date/time seen: 04/19/24 10:51 Interval history: Patient condition continued to improve, pain is tolerable, patient can not tolerate clear diet. Denies fever, chills, dysuria cough, shortness of breath. Labs reviewed Exam Narrative: GENERAL: Pleasant, in no acute distress. Well-nourished. - EYES: EOMI. Anicteric. - HENT: Moist mucous membranes. - LUNGS: Clear to auscultation bilaterally, no wheezing, rhonchi, or rales. Tachypnea - CARDIOVASCULAR: Regular rate and rhythm. No murmur. No JVD. Tachycardia - ABDOMEN: Soft, diffuse tender and some distended. No palpable masses. - EXTREMITIES: No edema. Peripheral pulses 2+. Non-tender. - NEUROLOGIC: No focal neurological deficits. CN II-XII grossly intact. - PSYCHIATRIC: Awake, Alert and oriented x 3. Appropriate mood and affect. - SKIN: No rashes or lesions. Warm. - LYMPH: No cervical lymphadenopathy. Objective Data Vital Signs Vital Signs: Vital Signs - 24 hr 04/18/24 12:00 04/18/24 16:00 04/18/24 20:00 Temperature 98.5 F 98.3 F 98.3 F Pulse Rate 107 H 105 H 101 H Respiratory Rate 19 18 18 Blood Pressure 118/58 L 101/62 121/70 Pulse Oximetry 97 97 97 Oxygen Delivery 04/18/24 20:00 04/19/24 00:00 04/19/24 04:00 Temperature 98.2 F 98.4 F Pulse Rate 98 113 H Respiratory Rate 18 18 Blood Pressure 114/65 120/64 Pulse Oximetry 100 95 Oxygen Delivery Room Air 04/19/24 08:29 Temperature Pulse Rate Respiratory Rate Blood Pressure Pulse Oximetry Oxygen Delivery Room Air Intake/Output Intake/Output: Intake & Output 04/16/24 04/18/24 04/18/24 04/19/24 23:59 00:59 23:59 23:59 Intake Total 9775 9720 1912 100 Balance 3646 3440 1912 100 Meds/Results Medications: Active Medications Generic Name Dose Route Start Last Admin Trade Name Freq PRN Reason Stop Dose Admin Acetaminophen 500 mg 04/15/24 11:18 Acetaminophen 500 Mg Tablet PO Q6H PRN Pain Rated 1-3 Ibuprofen 800 mg in 200 mls @ 400 mls/hr 04/12/24 10:32 04/13/24 05:46 Caldolor 800 Mg/200 Ml IVPB Infused Q6H PRN Infusion Mild Pain (1-3) Piperacillin/Tazobactam/Dextrose 3.375 gm in 50 mls @ 100 mls/hr 04/15/24 12:00 04/19/24 05:33 Zosyn 3.375 Gm/Ns 50 Ml IVPB Infused Q6H JULIANO Infusion Ibuprofen 600 mg 04/15/24 08:23 04/19/24 08:33 Ibuprofen 600 Mg Tablet PO 600 mg Q6H PRN Administration Pain Rated 1-3 Lidocaine 1 patch 04/08/24 19:02 04/11/24 08:47 Lidocaine 5% Patch TRANSDERM 1 patch Q24H PRN Administration back pain Miscellaneous Information 1 each 04/16/24 00:01 04/16/24 18:23 Clinamix Needs To Be Renewed Or It Will Automatically Discontinue. XX 05/16/24 00:00 Not Given [facility]IFY [facility] Morphine Sulfate 2 mg 04/15/24 11:18 Morphine Sulfate (*Crx) 2 Mg/Ml Inj IV PUSH Q2H PRN Breakthrough Pain Rated 4-6 or NPO Morphine Sulfate 4 mg 04/15/24 11:18 Morphine Sulfate (*Crx) 4 Mg/Ml Inj IV PUSH Q2H PRN Breakthrough Pain Rated 7-10 or NPO Naloxone HCl 0.1 mg 04/15/24 11:18 Naloxone Hcl 0.4 Mg/Ml Vial IV PUSH Q2M PRN Opiate Reversal Ondansetron HCl 4 mg 04/08/24 13:45 04/18/24 08:09 Ondansetron Inj 4 Mg/2 Ml Vial IV PUSH 4 mg Q6H PRN Administration Nausea And Vomiting Oxycodone/Acetaminophen 1 tablet 04/15/24 11:18 04/18/24 23:58 Oxycodone/Acetaminophen (*Crx) 5-325 Mg Tablet PO 1 tablet Q4H PRN Administration Pain Rated 4-6 Oxycodone/Acetaminophen 1 tab 04/15/24 11:18 04/19/24 05:04 Oxycodone/Acetaminophen (*Crx) 10-325 Mg Tablet PO 1 tab Q6H PRN Administration Pain Rated 7-10 Pantoprazole Sodium 40 mg 04/16/24 09:00 04/19/24 08:29 Pantoprazole 40 Mg Tablet PO 40 mg QAM JULIANO Administration Polyethylene Glycol 17 gm 04/14/24 13:10 04/19/24 08:30 Polyethylene Glycol 3350 17 Gm Powd.Pack PO Not Given QAM JULIANO Potassium Chloride 20 meq 04/16/24 08:00 04/19/24 08:29 Potassium Chloride 20 Meq Er Tablet PO 20 meq DAILY@0800 JULIANO Administration Senna/Docusate Sodium 2 tab 04/14/24 21:00 04/18/24 20:41 Senna/Docusate Sodium Tablet PO 2 tab HS JULIANO Administration Sertraline HCl 50 mg 04/09/24 09:00 04/19/24 08:29 Sertraline Hcl 50 Mg Tablet PO 50 mg DAILY JULIANO Administration Sodium Chloride 20 ml 04/11/24 14:26 04/16/24 04:34 Central Line Flush IV PUSH 20 ml PRN PRN Administration after blood draws Sodium Chloride 10 ml 04/11/24 14:26 04/16/24 00:29 Central Line Flush IV PUSH 10 ml PRN PRN Administration with TPN bag changes Sodium Chloride 10 ml 04/11/24 22:00 04/19/24 05:07 Central Line Flush IV PUSH 10 ml Q8HR JULIANO Administration Radiology Results: ITS Impressions MRCP 04/09/24 12:03 IMPRESSION: 1. Multiple tiny gallstones in the dependent aspect of the normal gallbladder. 2. Diffuse acute interstitial pancreatitis with prominent nonloculated peripancreatic fluid tracking into the intra and retroperitoneal soft tissue tissues. 3. No intra or extrahepatic biliary ductal dilation or evident choledocholithiasis. 4. Increased signal in the dependent lower lobes which could represent atelectasis or pneumonia. ADDENDUM: 04/09/24 1301 CORRECTION: Incorrect contrast agent is noted in the technique section. The study was performed without and with 16 mL ProHance intravenous contrast. Pelvis Ultrasound 04/09/24 13:37 IMPRESSION: 1. Unremarkable pelvic ultrasound. Chest/Abdomen/Pelvis CTA 04/11/24 12:59 IMPRESSION: 1. No evident pulmonary embolism. Sensitivity mildly decreased in the segmental and more prominently in the subsegmental pulmonary arteries due to is suboptimal opacification of the pulmonary arteries as well as small amount of respiratory and streak artifact. 2. Small left pleural effusion with partial collapse of the left lower lobe and additional atelectasis in the right lower lobe. 3. Interval progression of nonloculated peripancreatic fluid and extensive stranding consistent with acute interstitial pancreatitis. 4. Small amount of ascites in the abdomen and pelvis with increased density of the fluid in the dependent cul-de-sac suggesting complex/exudative ascites which could be seen with small amount of hemoperitoneum or peritonitis. Chest X-Ray 04/14/24 08:29 IMPRESSION: Mild pulmonary vascular congestion with a left lower lobe infiltrate and likely adjacent effusion. Abdomen/Pelvis CT 04/19/24 09:37 IMPRESSION: 1. Pancreatitis with multiple collections seen around the pancreas extending to the area of the left adrenal gland, left paracolic gutter and in the mesentery 2. Dilated bowel loops in the pelvis which may indicate ileus. Follow-up advised. 3. Free fluid in the pelvis. 4. Slight splenomegaly. Slight hepatomegaly. Labs Labs: Laboratory Results - last 24 hr 04/19/24 05:03 WBC 15.1 H RBC 3.04 L Hgb 7.6 L Hct 25.0 L MCV 82.2 MCH 25.0 L MCHC 30.4 L RDW 17.5 H Plt Count 294 MPV 9.9 Immature Gran % (Auto) 1.9 H Neut % (Auto) 86.4 H Lymph % (Auto) 7.7 L Scott % (Auto) 3.4 Eos % (Auto) 0.5 Baso % (Auto) 0.1 L Lymph # (Auto) 1.16 Scott # (Auto) 0.5 Eos # (Auto) 0.1 Baso # (Auto) 0.0 Abs Immat Gran (auto) 0.28 H Absolute Neuts (auto) 13.0 H Absolute Nucleated RBC 0.000 Nucleated RBC % 0.0 Sodium 139 Potassium 3.9 Chloride 105 Carbon Dioxide 26 Anion Gap 8 BUN 12 Creatinine 1.25 H Estim Creat Clear Calc 60 Estimated GFR 50 L Glucose 120 H Calcium 8.6 C-Reactive Protein 19.8 H Lipase 365 H
--- NOTE | 2024-04-19 11:12 | PCNFU ---
Nutrition Follow-Up Complete: Inadequate po intake related to NPO status due to pancreatitis as evidenced by diet orders and need for alternative nutrition support Goal: Meet estimated needs Patient is progressing towards goal. We will continue current goal. Pt current nutrition is Low Fat Last recorded weight is 82.8 kg, up from 80 kg on admit. Bowel Motility: +BM reported 04/17 Labs Reviewed:Glu 120, Cr 1.25, Hct 25.0, Hgb 7.6, GFR 50 Meds Noted: Protonix, Senokot Skin: WNL Additional Notes: Patient states to tolerating diet. She is drinking diet supplements of Ensure Enlive (350 kcal and 20 gm protein). Diet order changed from regular to low fat today per MD, due to gallbladder. No acute cholecystitis noted but will eventually need laparoscopic cholecystectomy per MD notes. CT scan today. Agree with diet orders. Monitor, diet, skin,wt, labs every 5 days.
[2024-04-19] MEDS: oxyCODONE/ACETAMINOPHEN (*CRX) 5-325 MG TABLET 1 TABLET PO ×3 (12:41→21:13)
[2024-04-19] MEDS: diphenhydrAMINE HCl CAP 25 MG CAPSULE PO (14:14)
--- NOTE | 2024-04-19 15:44 | WPDGIPROGNO ---
Progress Note: A&P Assessment and Plan (1) Gallstone pancreatitis: Code(s): K85.10 - Biliary acute pancreatitis without necrosis or infection Status: Acute Assessment and Plan: s/p tpn, still poor appetite and encouraging to eat more as tolerated repeat CT scan showed fluid collections, largest 5 cm- if no clinical improvement probably may need transfer to tertiary center for consideration of drainage with EUS (2) Upper abdominal pain: Code(s): R10.10 - Upper abdominal pain, unspecified Status: Acute Assessment and Plan: [employer] was discontinued pain meds prn now no major changes (3) Transaminitis: Code(s): R74.01 - Elevation of levels of liver transaminase levels Status: Acute Assessment and Plan: from pancreatitis no need of ercp surgery on board, at some point will need lap blanquita but probably after resolution of pancreatitis (4) Leukocytosis: Qualifiers: Leukocytosis type: bandemia Qualified Code(s): D72.825 - Bandemia Code(s): D72.829 - Elevated white blood cell count, unspecified Status: Acute Assessment and Plan: this also could be stress response or from pancreatitis (5) Nausea: Code(s): R11.0 - Nausea Status: Acute Assessment and Plan: on meds Subjective Date/time seen: 04/19/24 15:44 Interval history: similar, still poor appetite and nausea probably eating 10-20% meals Review of Systems Review of Systems: All systems reviewed & are unremarkable except as noted in HPI and below Exam Const: General: no acute distress Orientation/consciousness: patient oriented x3 HENMT: Face/Nose/Sinus: Normal nares present Eyes: Sclera: sclerae normal Neck: Neck: supple Resp: Effort & Inspection: normal respiratory effort Cardio: Rate: regular rate GI: Inspection: non-distended GI Palp: Yes Soft to palpation, Yes Tenderness to palpation present (GI) (diffusely tender- similar) and No Guarding due to palpation present (GI) Skin: General skin exam: no rashes or lesions noted Neuro: General: moves all extremities Extrem: General: no pedal edema and no calf tenderness Psych: Mental Status: mental status grossly normal Objective Data Vital Signs Vital Signs: Vital Signs - 24 hr 04/18/24 16:00 04/18/24 20:00 04/18/24 20:00 Temperature 98.3 F 98.3 F Pulse Rate 105 H 101 H Respiratory Rate 18 18 Blood Pressure 101/62 121/70 Pulse Oximetry 97 97 Oxygen Delivery Room Air 04/19/24 00:00 04/19/24 04:00 04/19/24 08:00 Temperature 98.2 F 98.4 F 97.7 F Pulse Rate 98 113 H 108 H Respiratory Rate 18 18 20 Blood Pressure 114/65 120/64 115/62 Pulse Oximetry 100 95 98 Oxygen Delivery 04/19/24 08:29 Temperature Pulse Rate Respiratory Rate Blood Pressure Pulse Oximetry Oxygen Delivery Room Air Intake/Output Intake/Output: Intake & Output 04/16/24 04/18/24 04/18/24 04/19/24 23:59 00:59 23:59 23:59 Intake Total 5574 1036 1919 1162 Balance 3646 7710 1912 1162 Meds/Results Medications: Active Medications Generic Name Dose Route Start Last Admin Trade Name Freq PRN Reason Stop Dose Admin Acetaminophen 500 mg 04/15/24 11:18 Acetaminophen 500 Mg Tablet PO Q6H PRN Pain Rated 1-3 Ibuprofen 800 mg in 200 mls @ 400 mls/hr 04/12/24 10:32 04/13/24 05:46 Caldolor 800 Mg/200 Ml IVPB Infused Q6H PRN Infusion Mild Pain (1-3) Ibuprofen 600 mg 04/15/24 08:23 04/19/24 08:33 Ibuprofen 600 Mg Tablet PO 600 mg Q6H PRN Administration Pain Rated 1-3 Lidocaine 1 patch 04/08/24 19:02 04/11/24 08:47 Lidocaine 5% Patch TRANSDERM 1 patch Q24H PRN Administration back pain Miscellaneous Information 1 each 04/16/24 00:01 04/16/24 18:23 Clinamix Needs To Be Renewed Or It Will Automatically Discontinue. XX 05/16/24 00:00 Not Given CLARIFY JULIANO Morphine Sulfate 2 mg 04/15/24 11:18 Morphine Sulfate (*Crx) 2 Mg/Ml Inj IV PUSH Q2H PRN Breakthrough Pain Rated 4-6 or NPO Morphine Sulfate 4 mg 04/15/24 11:18 Morphine Sulfate (*Crx) 4 Mg/Ml Inj IV PUSH Q2H PRN Breakthrough Pain Rated 7-10 or NPO Naloxone HCl 0.1 mg 04/15/24 11:18 Naloxone Hcl 0.4 Mg/Ml Vial IV PUSH Q2M PRN Opiate Reversal Ondansetron HCl 4 mg 04/08/24 13:45 04/18/24 08:09 Ondansetron Inj 4 Mg/2 Ml Vial IV PUSH 4 mg Q6H PRN Administration Nausea And Vomiting Oxycodone/Acetaminophen 1 tablet 04/15/24 11:18 04/19/24 12:41 Oxycodone/Acetaminophen (*Crx) 5-325 Mg Tablet PO 1 tablet Q4H PRN Administration Pain Rated 4-6 Oxycodone/Acetaminophen 1 tab 04/15/24 11:18 04/19/24 05:04 Oxycodone/Acetaminophen (*Crx) 10-325 Mg Tablet PO 1 tab Q6H PRN Administration Pain Rated 7-10 Pantoprazole Sodium 40 mg 04/16/24 09:00 04/19/24 08:29 Pantoprazole 40 Mg Tablet PO 40 mg QAM JULIANO Administration Polyethylene Glycol 17 gm 04/14/24 13:10 04/19/24 08:30 Polyethylene Glycol 3350 17 Gm Powd.Pack PO Not Given QAM JULIANO Potassium Chloride 20 meq 04/16/24 08:00 04/19/24 08:29 Potassium Chloride 20 Meq Er Tablet PO 20 meq DAILY@0800 JULIANO Administration Senna/Docusate Sodium 2 tab 04/14/24 21:00 04/18/24 20:41 Senna/Docusate Sodium Tablet PO 2 tab HS JULIANO Administration Sertraline HCl 50 mg 04/09/24 09:00 04/19/24 08:29 Sertraline Hcl 50 Mg Tablet PO 50 mg DAILY JULIANO Administration Sodium Chloride 20 ml 04/11/24 14:26 04/16/24 04:34 Central Line Flush IV PUSH 20 ml PRN PRN Administration after blood draws Sodium Chloride 10 ml 04/11/24 14:26 04/16/24 00:29 Central Line Flush IV PUSH 10 ml PRN PRN Administration with TPN bag changes Sodium Chloride 10 ml 04/11/24 22:00 04/19/24 14:14 Central Line Flush IV PUSH 10 ml Q8HR JULIANO Administration Radiology Results: ITS Impressions MRCP 04/09/24 12:03 IMPRESSION: 1. Multiple tiny gallstones in the dependent aspect of the normal gallbladder. 2. Diffuse acute interstitial pancreatitis with prominent nonloculated peripancreatic fluid tracking into the intra and retroperitoneal soft tissue tissues. 3. No intra or extrahepatic biliary ductal dilation or evident choledocholithiasis. 4. Increased signal in the dependent lower lobes which could represent atelectasis or pneumonia. ADDENDUM: 04/09/24 1301 CORRECTION: Incorrect contrast agent is noted in the technique section. The study was performed without and with 16 mL ProHance intravenous contrast. Pelvis Ultrasound 04/09/24 13:37 IMPRESSION: 1. Unremarkable pelvic ultrasound. Chest/Abdomen/Pelvis CTA 04/11/24 12:59 IMPRESSION: 1. No evident pulmonary embolism. Sensitivity mildly decreased in the segmental and more prominently in the subsegmental pulmonary arteries due to is suboptimal opacification of the pulmonary arteries as well as small amount of respiratory and streak artifact. 2. Small left pleural effusion with partial collapse of the left lower lobe and additional atelectasis in the right lower lobe. 3. Interval progression of nonloculated peripancreatic fluid and extensive stranding consistent with acute interstitial pancreatitis. 4. Small amount of ascites in the abdomen and pelvis with increased density of the fluid in the dependent cul-de-sac suggesting complex/exudative ascites which could be seen with small amount of hemoperitoneum or peritonitis. Chest X-Ray 04/14/24 08:29 IMPRESSION: Mild pulmonary vascular congestion with a left lower lobe infiltrate and likely adjacent effusion. Abdomen/Pelvis CT 04/19/24 09:37 IMPRESSION: 1. Pancreatitis with multiple collections seen around the pancreas extending to the area of the left adrenal gland, left paracolic gutter and in the mesentery 2. Dilated bowel loops in the pelvis which may indicate ileus. Follow-up advised. 3. Free fluid in the pelvis. 4. Slight splenomegaly. Slight hepatomegaly. Labs Labs: Laboratory Results - last 24 hr 04/19/24 05:03 WBC 15.1 H RBC 3.04 L Hgb 7.6 L Hct 25.0 L MCV 82.2 MCH 25.0 L MCHC 30.4 L RDW 17.5 H Plt Count 294 MPV 9.9 Immature Gran % (Auto) 1.9 H Neut % (Auto) 86.4 H Lymph % (Auto) 7.7 L Gilmer % (Auto) 3.4 Eos % (Auto) 0.5 Baso % (Auto) 0.1 L Lymph # (Auto) 1.16 Gilmer # (Auto) 0.5 Eos # (Auto) 0.1 Baso # (Auto) 0.0 Abs Immat Gran (auto) 0.28 H Absolute Neuts (auto) 13.0 H Absolute Nucleated RBC 0.000 Nucleated RBC % 0.0 Sodium 139 Potassium 3.9 Chloride 105 Carbon Dioxide 26 Anion Gap 8 BUN 12 Creatinine 1.25 H Estim Creat Clear Calc 60 Estimated GFR 50 L Glucose 120 H Calcium 8.6 C-Reactive Protein 19.8 H Lipase 365 H
[2024-04-19 15:56] VITALS: BP 110/72; PULSE 106; RESP 20; TEMP 36.4; O2SAT 99
[2024-04-19] MEDS: ONDANSETRON INJ 4 MG/2 ML VIAL IV PUSH (17:03)
[2024-04-19 20:00] VITALS: BP 125/65; PULSE 97; RESP 18; TEMP 36.4; O2SAT 95
[2024-04-19] MEDS: SENNA/DOCUSATE SODIUM TABLET 2 TAB PO (21:13)
[2024-04-19 23:03] VITALS: BP 114/64; PULSE 98; RESP 18; TEMP 36.2; O2SAT 97
[2024-04-20 03:17] VITALS: BP 137/69; PULSE 110; RESP 18; TEMP 36.6; O2SAT 97
[2024-04-20] MEDS: oxyCODONE/ACETAMINOPHEN (*CRX) 5-325 MG TABLET 1 TABLET PO ×3 (03:39→20:30)
[2024-04-20] MEDS: CENTRAL LINE FLUSH 10 ML IV PUSH ×3 (05:09→20:33)
[2024-04-20 05:21] LABS: Basophils Percent Auto 0.1 % (0.2-1.2); Eosinophils Absolute Auto 0.1 K/mm3 (0-0.3); Eosinophils Percent Auto 0.5 % (0-4.4); Hematocrit 25.8 % (37.0-47.0); Immature Granulocyte Absolute 0.23 K/mm3 (0.00-0.031); Immature Granulocyte Percent A 1.4 % (0-0.5); Lymphocytes Absolute Auto 0.83 K/mm3 (0.9-3.2); Lymphocytes Percent Auto 4.9 % (18.3-44.2); Mean Corpuscular Hemoglobin 25.5 pg (26-34); Mean Corpuscular Volume 82.2 fl (80-100); Mean Platelet Volume 9.5 fl (7.4-10.4); Monocytes Absolute Auto 0.4 K/mm3 (0.1-0.6); Monocytes Percent Auto 2.6 % (2.6-8.5); Neutrophils Absolute Auto 15.2 K/mm3 (1.3-6.7); Neutrophils Percent Auto 90.5 % (45.5-73.1); Platelet Count Result 345 k/mm3 (150-375); Red Blood Count 3.14 M/mm3 (4.2-5.4); Red Cell Distribution Width 17.2 % (11.5-14.5); White Blood Count 16.8 K/mm3 (4.5-10.0)
[2024-04-20 05:32] LABS: Anion Gap 9 mmol/L (4-12); Blood Urea Nitrogen 10 mg/dL (7-17); Calcium 8.7 mg/dL (8.4-10.2); Carbon Dioxide 27 mmol/L (22-30); Chloride 100 mmol/L (98-107); Estimated CRCL calculation 63 ml/min; Estimated Glomerular Filt Rate 53; Glucose 175 mg/dL (65-110); Sodium 136 mmol/L (137-145)
[2024-04-20 05:40] LABS: Lipase 404 U/L (23-300)
[2024-04-20 05:53] LABS: CRP 20.4 mg/dL (<1.0)
--- NOTE | 2024-04-20 07:48 | P.PNIM_ITS ---
Progress Note: A&P Assessment and Plan (1) Prolonged PTT: Code(s): R79.1 - Abnormal coagulation profile Status: Acute (2) Anxiety and depression: Code(s): F41.9 - Anxiety disorder, unspecified; F32.A - Depression, unspecified Status: Acute (3) Depression: Code(s): F32.A - Depression, unspecified Status: Acute (4) Acute pancreatitis: Qualifiers: Acute pancreatitis complication: unspecified Pancreatitis type: unspecified pancreatitis type Qualified Code(s): K85.90 - Acute pancreatitis without necrosis or infection, unspecified Code(s): K85.90 - Acute pancreatitis without necrosis or infection, unspecified Status: Acute (5) Cholelithiasis: Qualifiers: Biliary obstruction: with biliary obstruction Cholecystitis presence: without cholecystitis Cholelithiasis location: gallbladder Qualified Code(s): K80.21 - Calculus of gallbladder without cholecystitis with obstruction Code(s): K80.20 - Calculus of gallbladder without cholecystitis without obstruction Status: Chronic Plan Gallstone pancreatitis: Code(s): K85.10 - Biliary acute pancreatitis without necrosis or infection Status: Acute Assessment and Plan: Patient presents with abdominal pain and found to have lipase >40K. CTA chest/abdomen/pelvis shows acute interstitial pancreatitis with prominent nonloculated acute peripancreatic fluid collections and stranding, tiny GS versus porcelain gallbladder with mural calcification along the dependent wall of the otherwise normal GB, no evident choledocholithiasis or intra or extra hepatic biliary ductal dilation and mild dependent atelectasis in the lower lobes. No pulmonary embolism or other acute cardiopulmonary disease. MRCP showing similar findings from the CT scan and no evidence of choledocholithiasis. Patient with GS Pancreatitis. General surgery and GI consulted and appreciate their input. TG 198. Lipase trending downward at 300. TB better at 1.1 and other liver tests normalize Repeat CT A/P (04/11) showing interval progression of non loculated peripancreatic fluid and extensive stranding consistent with acute interstitial pancreatitis Received TPN, stopped. Patient is on liquid diet Pain is tolerable 04/19 Patient still has a poor appetite, cannot have enough intake by mouth. Cholelithiasis: Qualifiers: Biliary obstruction: with biliary obstruction Cholecystitis presence: without cholecystitis Cholelithiasis location: gallbladder Qualified Code(s): K80.21 - Calculus of gallbladder without cholecystitis with obstruction Code(s): K80.20 - Calculus of gallbladder without cholecystitis without obstruction Status: Chronic Assessment and Plan: As above sepsis Leukocytosis, white blood cell is trending up, patient also has tachycardia tachypnea low-grade fever Patient is afebrile, but leukocytosis trending up. UA shows pyuria cxr:a left lower lobe infiltrate and likely adjacent effusion. CT abdomen pelvis shows no abscess necrosis or hemorrhagic transformation, small amount reactive ascites in the pelvis, small left pleural effusion with partial collapse of left lower lobe Possible reaction to pancreatitis, but also has risks of intra-abdominal infection, currently patient is on TPN that places patient on risk of infection also Patient is allergic to Levaquin Sepsis likely secondary to UTI and possible pneumonia Continue vancomycin Zosyn 04/16 Patient is afebrile, no better growth from blood culture, fungal culture pending. Leukocytosis persists, continue Zosyn, discontinue vancomycin. 04/19 WBC trending down and afeb, UCX negative and BCX negative, Cr is trending up, dc zosyn now Transaminitis: Code(s): R74.01 - Elevation of levels of liver transaminase levels Status: Acute Assessment and Plan: As above. Elevated partial thromboplastin time (PTT): Code(s): R79.1 - Abnormal coagulation profile Status: Chronic Assessment and Plan: PTT 197, previously 159 on 06/27/2023. Patient has previously been referred to Hematology but has not follow-up with this. Her mother and maternal grandmother have some form of clotting disorder and are both She has bleeding gums but no miscarriages or early bruising. 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 Hgb 13.2 upon arrival in the ED Pelvic ultrasound was unremarkable. Could be related to her elevated PTT. HH has trended down to 8.4 today but could be related to fluids. 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 Mag 2.2 Replace potassium Replace Phos as well. Subjective Date/time seen: 04/20/24 07:48 Interval history: Patient id a banana and metabolic Ensure, patient found nauseous, and also still has abdomen pain. Patient has a poor appetite patient afebrile blood pressure stable, labs reviewed Exam Narrative: GENERAL: Pleasant, in no acute distress. Well-nourished. - EYES: EOMI. Anicteric. - HENT: Moist mucous membranes. - LUNGS: Clear to auscultation bilateral ly, no wheezing, rhonchi, or rales. Tachypnea - CARDIOVASCULAR: Regular rate and rhyth m. No murmur. No JVD. Tachycardia - ABDOMEN: Soft, mid abdominal tender an d some distended. No palpable masses. - EXTREMITIES: No edema. Peripheral puls es 2+. Non-tender. - NEUROLOGIC: No focal neurological defi cits. CN II-XII grossly intact. - PSYCHIATRIC: Awake, Alert and oriented x 3. Appropriate mood and affect. - SKIN: No rashes or lesions. Warm. - LYMPH: No cervical lymphadenopathy. Objective Data Vital Signs Vital Signs: Vital Signs - 24 hr 04/19/24 08:00 04/19/24 08:29 04/19/24 15:56 Temperature 97.7 F 97.6 F Pulse Rate 108 H 106 H Respiratory Rate 20 20 Blood Pressure 115/62 110/72 Pulse Oximetry 98 99 Oxygen Delivery Room Air 04/19/24 20:00 04/19/24 20:00 04/19/24 23:03 Temperature 97.5 F L 97.2 F L Pulse Rate 97 98 Respiratory Rate 18 18 Blood Pressure 125/65 114/64 Pulse Oximetry 95 97 Oxygen Delivery Room Air 04/20/24 03:17 Temperature 97.8 F Pulse Rate 110 H Respiratory Rate 18 Blood Pressure 137/69 Pulse Oximetry 97 Oxygen Delivery Intake/Output Intake/Output: Intake & Output 04/18/24 04/18/24 04/19/24 04/20/24 00:59 23:59 23:59 23:59 Intake Total 3440 1912 2584 400 Balance 3440 1912 2584 400 Meds/Results Medications: Active Medications Generic Name Dose Route Start Last Admin Trade Name Freq PRN Reason Stop Dose Admin Acetaminophen 500 mg 04/15/24 11:18 Acetaminophen 500 Mg Tablet PO Q6H PRN Pain Rated 1-3 Ibuprofen 800 mg in 200 mls @ 400 mls/hr 04/12/24 10:32 04/13/24 05:46 Caldolor 800 Mg/200 Ml IVPB Infused Q6H PRN Infusion Mild Pain (1-3) Ibuprofen 600 mg 04/15/24 08:23 04/19/24 08:33 Ibuprofen 600 Mg Tablet PO 600 mg Q6H PRN Administration Pain Rated 1-3 Lidocaine 1 patch 04/08/24 19:02 04/11/24 08:47 Lidocaine 5% Patch TRANSDERM 1 patch Q24H PRN Administration back pain Miscellaneous Information 1 each 04/16/24 00:01 04/16/24 18:23 Clinamix Needs To Be Renewed Or It Will Automatically Discontinue. XX 05/16/24 00:00 Not Given CLARIFY JULIANO Morphine Sulfate 2 mg 04/15/24 11:18 Morphine Sulfate (*Crx) 2 Mg/Ml Inj IV PUSH Q2H PRN Breakthrough Pain Rated 4-6 or NPO Morphine Sulfate 4 mg 04/15/24 11:18 Morphine Sulfate (*Crx) 4 Mg/Ml Inj IV PUSH Q2H PRN Breakthrough Pain Rated 7-10 or NPO Naloxone HCl 0.1 mg 04/15/24 11:18 Naloxone Hcl 0.4 Mg/Ml Vial IV PUSH Q2M PRN Opiate Reversal Ondansetron HCl 4 mg 04/08/24 13:45 04/19/24 17:03 Ondansetron Inj 4 Mg/2 Ml Vial IV PUSH 4 mg Q6H PRN Administration Nausea And Vomiting Oxycodone/Acetaminophen 1 tablet 04/15/24 11:18 04/20/24 03:39 Oxycodone/Acetaminophen (*Crx) 5-325 Mg Tablet PO 1 tablet Q4H PRN Administration Pain Rated 4-6 Oxycodone/Acetaminophen 1 tab 04/15/24 11:18 04/19/24 05:04 Oxycodone/Acetaminophen (*Crx) 10-325 Mg Tablet PO 1 tab Q6H PRN Administration Pain Rated 7-10 Pantoprazole Sodium 40 mg 04/16/24 09:00 04/19/24 08:29 Pantoprazole 40 Mg Tablet PO 40 mg QAM JULIANO Administration Polyethylene Glycol 17 gm 04/14/24 13:10 04/19/24 08:30 Polyethylene Glycol 3350 17 Gm Powd.Pack PO Not Given QAM JULIANO Potassium Chloride 20 meq 04/16/24 08:00 04/19/24 08:29 Potassium Chloride 20 Meq Er Tablet PO 20 meq DAILY@0800 JULIANO Administration Senna/Docusate Sodium 2 tab 04/14/24 21:00 04/19/24 21:13 Senna/Docusate Sodium Tablet PO 2 tab HS JULIANO Administration Sertraline HCl 50 mg 04/09/24 09:00 04/19/24 08:29 Sertraline Hcl 50 Mg Tablet PO 50 mg DAILY JULIANO Administration Sodium Chloride 20 ml 04/11/24 14:26 04/16/24 04:34 Central Line Flush IV PUSH 20 ml PRN PRN Administration after blood draws Sodium Chloride 10 ml 04/11/24 14:26 04/16/24 00:29 Central Line Flush IV PUSH 10 ml PRN PRN Administration with TPN bag changes Sodium Chloride 10 ml 04/11/24 22:00 04/20/24 05:09 Central Line Flush IV PUSH 10 ml Q8HR JULIANO Administration Radiology Results: ITS Impressions MRCP 04/09/24 12:03 IMPRESSION: 1. Multiple tiny gallstones in the dependent aspect of the normal gallbladder. 2. Diffuse acute interstitial pancreatitis with prominent nonloculated peripancreatic fluid tracking into the intra and retroperitoneal soft tissue tissues. 3. No intra or extrahepatic biliary ductal dilation or evident choledocholithiasis. 4. Increased signal in the dependent lower lobes which could represent atelectasis or pneumonia. ADDENDUM: 04/09/24 1301 CORRECTION: Incorrect contrast agent is noted in the technique section. The study was pe rformed without and with 16 mL ProHance intravenous contrast. Pelvis Ultrasound 04/09/24 13:37 IMPRESSION: 1. Unremarkable pelvic ultrasound. Chest/Abdomen/Pelvis CTA 04/11/24 12:59 IMPRESSION: 1. No evident pulmonary embolism. Sensitivity mildly decreased in the segmental and more prominently in the subsegmental pulmonary arteries due to is suboptimal opacification of the pulmonary arteries as well as small amount of respiratory and streak artifact. 2. Small left pleural effusion with partial collapse of the left lower lobe and additional atelectasis in the right lower lobe. 3. Interval progression of nonloculated peripancreatic fluid and extensive stranding consistent with acute interstitial pancreatitis. 4. Small amount of ascites in the abdomen and pelvis with increased density of the fluid in the dependent cul-de-sac suggesting complex/exudative ascites which could be seen with small amount of hemoperitoneum or peritonitis. Chest X-Ray 04/14/24 08:29 IMPRESSION: Mild pulmonary vascular congestion with a left lower lobe infiltrate and likely adjacent effusion. Abdomen/Pelvis CT 04/19/24 09:37 IMPRESSION: 1. Pancreatitis with multiple collections seen around the pancreas extending to the area of the left adrenal gland, left paracolic gutter and in the mesentery 2. Dilated bowel loops in the pelvis which may indicate ileus. Follow-up advised. 3. Free fluid in the pelvis. 4. Slight splenomegaly. Slight hepatomegaly. Labs Labs: Laboratory Results - last 24 hr 04/20/24 05:14 WBC 16.8 H RBC 3.14 L Hgb 8.0 L Hct 25.8 L MCV 82.2 MCH 25.5 L MCHC 31.0 L RDW 17.2 H Plt Count 345 MPV 9.5 Immature Gran % (Auto) 1.4 H Neut % (Auto) 90.5 H Lymph % (Auto) 4.9 L [place] % (Auto) 2.6 Eos % (Auto) 0.5 Baso % (Auto) 0.1 L Lymph # (Auto) 0.83 L [place] # (Auto) 0.4 Eos # (Auto) 0.1 Baso # (Auto) 0.0 Abs Immat Gran (auto) 0.23 H Absolute Neuts (auto) 15.2 H Absolute Nucleated RBC 0.000 Nucleated RBC % 0.0 Sodium 136 L Potassium 4.0 Chloride 100 Carbon Dioxide 27 Anion Gap 9 BUN 10 Creatinine 1.19 H Estim Creat Clear Calc 63 Estimated GFR 53 L Glucose 175 H Calcium 8.7 C-Reactive Protein 20.4 H Lipase 404 H
[2024-04-20 08:00] VITALS: BP 133/69; PULSE 100; RESP 16; TEMP 36.6; O2SAT 99
[2024-04-20] MEDS: polyethylene glycoL 3350 17 GM POWD.PACK PO (10:04)
[2024-04-20] MEDS: PANTOPRAZOLE 40 MG TABLET PO (10:04)
[2024-04-20] MEDS: SERTRALINE HCL 50 MG TABLET PO (10:04)
[2024-04-20] MEDS: POTASSIUM CHLORIDE 20 MEQ ER TABLET PO (10:04)
--- NOTE | 2024-04-20 11:28 | P.PNGS_ITS ---
Progress Note: A&P Assessment and Plan (1) Leukocytosis: Qualifiers: Leukocytosis type: bandemia Qualified Code(s): D72.825 - Bandemia Code(s): D72.829 - Elevated white blood cell count, unspecified Status: Acute Assessment and Plan: WBC count up again slightly to 16,[address] scan showed multiple fluid collections with the largest in the left paracolic gutter measuring around 5 cm. She is not clinically improving as expected and actually her CRP and lipase are trending up. We would recommend transferring to a tertiary care facility at this time. I discussed this with the Hospitalist. Continue IV Zosyn. (2) Acute pancreatitis: Qualifiers: Acute pancreatitis complication: unspecified Pancreatitis type: unspecified pancreatitis type Qualified Code(s): K85.90 - Acute pancreatitis without necrosis or infection, unspecified Code(s): K85.90 - Acute pancreatitis without necrosis or infection, unspecified Status: Acute Assessment and Plan: Lipase elevated again today, CRP trending up. See plan above. GI feels she may need drainage with EUS. Recommend transfer. (3) Cholelithiasis: Qualifiers: Biliary obstruction: with biliary obstruction Cholecystitis presence: without cholecystitis Cholelithiasis location: gallbladder Qualified Code(s): K80.21 - Calculus of gallbladder without cholecystitis with obstruction Code(s): K80.20 - Calculus of gallbladder without cholecystitis without obstruction Status: Chronic Assessment and Plan: No acute cholecystitis noted but will eventually need laparoscopic cholecystectomy as gallstones are likely the cause of her acute pancreatitis (4) Elevated partial thromboplastin time (PTT): Code(s): R79.1 - Abnormal coagulation profile Status: Chronic Assessment and Plan: Evaluation underway, most likely would seem to be lupus anticoagulant. Plan I have discussed the patient's case and plan of care with Dr. Warner. Subjective Subjective Date/Time Seen: 04/20/24 11:28 Patient reports: still having pain, flatus (little), bowel movement (one small bowel movement this morning) and afebrile Interval history: patient is still having epigastric and LUQ abdominal pain. She is able to tolerate some of the solid diet, but is not eating much. She has no appetite. No nausea or vomiting. She still feels extremely bloated. Exam Const: General: no acute distress GI: Inspection: non-distended GI Palp: Yes Soft to palpation (but fullness across the mid upper abdomen), Yes Tenderness to palpation present (GI) (diffusely tender, worse in the mid to left upper abdomen), Yes Guarding due to palpation present (GI) and No Rebound tenderness present Auscultation: Hypoactive bowel sounds present Extrem: General: no calf tenderness Objective Data Vital Signs Vital Signs: Vital Signs - 24 hr 04/19/24 15:56 04/19/24 20:00 04/19/24 20:00 Temperature 97.6 F 97.5 F L Pulse Rate 106 H 97 Respiratory Rate 20 18 Blood Pressure 110/72 125/65 Pulse Oximetry 99 95 Oxygen Delivery Room Air 04/19/24 23:03 04/20/24 03:17 04/20/24 08:00 Temperature 97.2 F L 97.8 F 98 F Pulse Rate 98 110 H 100 Respiratory Rate 18 18 16 Blood Pressure 114/64 137/69 133/69 Pulse Oximetry 97 97 99 Oxygen Delivery 04/20/24 10:07 Temperature Pulse Rate Respiratory Rate Blood Pressure Pulse Oximetry Oxygen Delivery Room Air Intake/Output Intake/Output: Intake & Output 04/18/24 04/18/24 04/19/24 04/20/24 00:59 23:59 23:59 23:59 Intake Total 3440 1912 2584 1090 Balance 3440 1912 2584 1090 Meds/Results Medications: Active Medications Generic Name Dose Route Start Last Admin Trade Name Freq PRN Reason Stop Dose Admin Acetaminophen 500 mg 04/15/24 11:18 Acetaminophen 500 Mg Tablet PO Q6H PRN Pain Rated 1-3 Ibuprofen 800 mg in 200 mls @ 400 mls/hr 04/12/24 10:32 04/13/24 05:46 Caldolor 800 Mg/200 Ml IVPB Infused Q6H PRN Infusion Mild Pain (1-3) Ibuprofen 600 mg 04/15/24 08:23 04/19/24 08:33 Ibuprofen 600 Mg Tablet PO 600 mg Q6H PRN Administration Pain Rated 1-3 Lidocaine 1 patch 04/08/24 19:02 04/11/24 08:47 Lidocaine 5% Patch TRANSDERM 1 patch Q24H PRN Administration back pain Morphine Sulfate 2 mg 04/15/24 11:18 Morphine Sulfate (*Crx) 2 Mg/Ml Inj IV PUSH Q2H PRN Breakthrough Pain Rated 4-6 or NPO Morphine Sulfate 4 mg 04/15/24 11:18 Morphine Sulfate (*Crx) 4 Mg/Ml Inj IV PUSH Q2H PRN Breakthrough Pain Rated 7-10 or NPO Naloxone HCl 0.1 mg 04/15/24 11:18 Naloxone Hcl 0.4 Mg/Ml Vial IV PUSH Q2M PRN Opiate Reversal Ondansetron HCl 4 mg 04/08/24 13:45 04/19/24 17:03 Ondansetron Inj 4 Mg/2 Ml Vial IV PUSH 4 mg Q6H PRN Administration Nausea And Vomiting Oxycodone/Acetaminophen 1 tablet 04/15/24 11:18 04/20/24 03:39 Oxycodone/Acetaminophen (*Crx) 5-325 Mg Tablet PO 1 tablet Q4H PRN Administration Pain Rated 4-6 Oxycodone/Acetaminophen 1 tab 04/15/24 11:18 04/19/24 05:04 Oxycodone/Acetaminophen (*Crx) 10-325 Mg Tablet PO 1 tab Q6H PRN Administration Pain Rated 7-10 Pantoprazole Sodium 40 mg 04/16/24 09:00 04/20/24 10:04 Pantoprazole 40 Mg Tablet PO 40 mg QAM JULIANO Administration Polyethylene Glycol 17 gm 04/14/24 13:10 04/20/24 10:04 Polyethylene Glycol 3350 17 Gm Powd.Pack PO 17 gm QAM JULIANO Administration Potassium Chloride 20 meq 04/16/24 08:00 04/20/24 10:04 Potassium Chloride 20 Meq Er Tablet PO 20 meq DAILY@0800 JULIANO Administration Senna/Docusate Sodium 2 tab 04/14/24 21:00 04/19/24 21:13 Senna/Docusate Sodium Tablet PO 2 tab HS JULIANO Administration Sertraline HCl 50 mg 04/09/24 09:00 04/20/24 10:04 Sertraline Hcl 50 Mg Tablet PO 50 mg DAILY JULIANO Administration Sodium Chloride 20 ml 04/11/24 14:26 04/16/24 04:34 Central Line Flush IV PUSH 20 ml PRN PRN Administration after blood draws Sodium Chloride 10 ml 04/11/24 14:26 04/16/24 00:29 Central Line Flush IV PUSH 10 ml PRN PRN Administration with TPN bag changes Sodium Chloride 10 ml 04/11/24 22:00 04/20/24 05:09 Central Line Flush IV PUSH 10 ml Q8HR JULIANO Administration Radiology Results: ITS Impressions MRCP 04/09/24 12:03 IMPRESSION: 1. Multiple tiny gallstones in the dependent aspect of the normal gallbladder. 2. Diffuse acute interstitial pancreatitis with prominent nonloculated p eripancreatic fluid tracking into the intra and retroperitoneal soft tissue tissues. 3. No intra or extrahepatic biliary ductal dilation or evident choledocholithiasis. 4. Increased signal in the dependent lower lobes which could represent atelectasis or pneumonia. ADDENDUM: 04/09/24 1301 CORRECTION: Incorrect contrast agent is noted in the technique section. The study was performed without and with 16 mL ProHance intravenous contrast. Pelvis Ultrasound 04/09/24 13:37 IMPRESSION: 1. Unremarkable pelvic ultrasound. Chest/Abdomen/Pelvis CTA 04/11/24 12:59 IMPRESSION: 1. No evident pulmonary embolism. Sensitivity mildly decreased in the segmental and more prominently in the subsegmental pulmonary arteries due to is suboptimal opacification of the pulmonary arteries as well as small amount of respiratory and streak artifact. 2. Small left pleural effusion with partial collapse of the left lower lobe and additional atelectasis in the right lower lobe. 3. Interval progression of nonloculated peripancreatic fluid and extensive stranding consistent with acute interstitial pancreatitis. 4. Small amount of ascites in the abdomen and pelvis with increased density of the fluid in the dependent cul-de-sac suggesting complex/exudative ascites which could be seen with small amount of hemoperitoneum or peritonitis. Chest X-Ray 04/14/24 08:29 IMPRESSION: Mild pulmonary vascular congestion with a left lower lobe infiltrate and likely adjacent effusion. Abdomen/Pelvis CT 04/19/24 09:37 IMPRESSION: 1. Pancreatitis with multiple collections seen around the pancreas extending to the area of the left adrenal gland, left paracolic gutter and in the mesentery 2. Dilated bowel loops in the pelvis which may indicate ileus. Follow-up advised. 3. Free fluid in the pelvis. 4. Slight splenomegaly. Slight hepatomegaly. Labs Labs: Laboratory Results - last 24 hr 04/20/24 05:14 WBC 16.8 H RBC 3.14 L Hgb 8.0 L Hct 25.8 L MCV 82.2 MCH 25.5 L MCHC 31.0 L RDW 17.2 H Plt Count 345 MPV 9.5 Immature Gran % (Auto) 1.4 H Neut % (Auto) 90.5 H Lymph % (Auto) 4.9 L [place] % (Auto) 2.6 Eos % (Auto) 0.5 Baso % (Auto) 0.1 L Lymph # (Auto) 0.83 L [place] # (Auto) 0.4 Eos # (Auto) 0.1 Baso # (Auto) 0.0 Abs Immat Gran (auto) 0.23 H Absolute Neuts (auto) 15.2 H Absolute Nucleated RBC 0.000 Nucleated RBC % 0.0 Sodium 136 L Potassium 4.0 Chloride 100 Carbon Dioxide 27 Anion Gap 9 BUN 10 Creatinine 1.19 H Estim Creat Clear Calc 63 Estimated GFR 53 L Glucose 175 H Calcium 8.7 C-Reactive Protein 20.4 H Lipase 404 H
[2024-04-20 12:00] VITALS: BP 129/66; PULSE 94; RESP 16; TEMP 36.7; O2SAT 100
[2024-04-20 16:00] VITALS: BP 120/59; PULSE 102; RESP 16; TEMP 36.7; O2SAT 99
--- NOTE | 2024-04-20 17:26 | P.PNGI_ITS ---
Progress Note: A&P Assessment and Plan (1) Gallstone pancreatitis: Code(s): K85.10 - Biliary acute pancreatitis without necrosis or infection Status: Acute Assessment and Plan: no major changes, still poor appetite repeat CT scan showed fluid collections, largest 5 cm prolonged course without significant improvement, may need transfer to tertiary center for further evaluation of complicated pancreatitis (2) Upper abdominal pain: Code(s): R10.10 - Upper abdominal pain, unspecified Status: Acute Assessment and Plan: [employer] was discontinued pain meds prn now no major changes (3) Transaminitis: Code(s): R74.01 - Elevation of levels of liver transaminase levels Status: Acute Assessment and Plan: from pancreatitis no need of ercp surgery on board, at some point will need lap blanquita but probably after resolution of pancreatitis (4) Leukocytosis: Qualifiers: Leukocytosis type: bandemia Qualified Code(s): D72.825 - Bandemia Code(s): D72.829 - Elevated white blood cell count, unspecified Status: Acute Assessment and Plan: this also could be stress response or from pancreatitis she has been on abx (5) Nausea: Code(s): R11.0 - Nausea Status: Acute Assessment and Plan: on meds Subjective Date/time seen: 04/20/24 17:26 Interval history: no major changes, still poor appetite and discomfort Review of Systems 2 Review of Systems: All systems reviewed & are unremarkable except as noted in HPI and below Exam Const: General: no acute distress Orientation/consciousness: patient oriented x3 HENMT: Face/Nose/Sinus: Normal nares present Eyes: Sclera: sclerae normal Neck: Neck: supple Resp: Effort & Inspection: normal respiratory effort Cardio: Rate: regular rate GI: Inspection: non-distended GI Palp: Yes Soft to palpation and Yes Tenderness to palpation present (GI) (diffusely tender- similar) Skin: General skin exam: no rashes or lesions noted Neuro: General: moves all extremities Extrem: General: no pedal edema and no calf tenderness Psych: Mental Status: mental status grossly normal Objective Data Vital Signs Vital Signs: Vital Signs - 24 hr 04/19/24 20:00 04/19/24 20:00 04/19/24 23:03 Temperature 97.5 F L 97.2 F L Pulse Rate 97 98 Respiratory Rate 18 18 Blood Pressure 125/65 114/64 Pulse Oximetry 95 97 Oxygen Delivery Room Air 04/20/24 03:17 04/20/24 08:00 04/20/24 10:07 Temperature 97.8 F 98 F Pulse Rate 110 H 100 Respiratory Rate 18 16 Blood Pressure 137/69 133/69 Pulse Oximetry 97 99 Oxygen Delivery Room Air 04/20/24 12:00 Temperature 98.1 F Pulse Rate 94 Respiratory Rate 16 Blood Pressure 129/66 Pulse Oximetry 100 Oxygen Delivery Intake/Output Intake/Output: Intake & Output 04/18/24 04/18/24 04/19/24 04/20/24 00:59 23:59 23:59 23:59 Intake Total 3440 1915 2584 1560 Balance 3440 1915 2584 1560 Meds/Results Medications: Active Medications Generic Name Dose Route Start Last Admin Trade Name Freq PRN Reason Stop Dose Admin Acetaminophen 500 mg 04/15/24 11:18 Acetaminophen 500 Mg Tablet PO Q6H PRN Pain Rated 1-3 Ibuprofen 800 mg in 200 mls @ 400 mls/hr 04/12/24 10:32 04/13/24 05:46 Caldolor 800 Mg/200 Ml IVPB Infused Q6H PRN Infusion Mild Pain (1-3) Ibuprofen 600 mg 04/15/24 08:23 04/19/24 08:33 Ibuprofen 600 Mg Tablet PO 600 mg Q6H PRN Administration Pain Rated 1-3 Lidocaine 1 patch 04/08/24 19:02 04/11/24 08:47 Lidocaine 5% Patch TRANSDERM 1 patch Q24H PRN Administration back pain Morphine Sulfate 2 mg 04/15/24 11:18 Morphine Sulfate (*Crx) 2 Mg/Ml Inj IV PUSH Q2H PRN Breakthrough Pain Rated 4-6 or NPO Morphine Sulfate 4 mg 04/15/24 11:18 Morphine Sulfate (*Crx) 4 Mg/Ml Inj IV PUSH Q2H PRN Breakthrough Pain Rated 7-10 or NPO Naloxone HCl 0.1 mg 04/15/24 11:18 Naloxone Hcl 0.4 Mg/Ml Vial IV PUSH Q2M PRN Opiate Reversal Ondansetron HCl 4 mg 04/08/24 13:45 04/19/24 17:03 Ondansetron Inj 4 Mg/2 Ml Vial IV PUSH 4 mg Q6H PRN Administration Nausea And Vomiting Oxycodone/Acetaminophen 1 tablet 04/15/24 11:18 04/20/24 12:46 Oxycodone/Acetaminophen (*Crx) 5-325 Mg Tablet PO 1 tablet Q4H PRN Administration Pain Rated 4-6 Oxycodone/Acetaminophen 1 tab 04/15/24 11:18 04/19/24 05:04 Oxycodone/Acetaminophen (*Crx) 10-325 Mg Tablet PO 1 tab Q6H PRN Administration Pain Rated 7-10 Pantoprazole Sodium 40 mg 04/16/24 09:00 04/20/24 10:04 Pantoprazole 40 Mg Tablet PO 40 mg QAM JULIANO Administration Polyethylene Glycol 17 gm 04/14/24 13:10 04/20/24 10:04 Polyethylene Glycol 3350 17 Gm Powd.Pack PO 17 gm QAM JULIANO Administration Potassium Chloride 20 meq 04/16/24 08:00 04/20/24 10:04 Potassium Chloride 20 Meq Er Tablet PO 20 meq DAILY@0800 JULIANO Administration Senna/Docusate Sodium 2 tab 04/14/24 21:00 04/19/24 21:13 Senna/Docusate Sodium Tablet PO 2 tab HS JULIANO Administration Sertraline HCl 50 mg 04/09/24 09:00 04/20/24 10:04 Sertraline Hcl 50 Mg Tablet PO 50 mg DAILY JULIANO Administration Sodium Chloride 20 ml 04/11/24 14:26 04/16/24 04:34 Central Line Flush IV PUSH 20 ml PRN PRN Administration after blood draws Sodium Chloride 10 ml 04/11/24 14:26 04/16/24 00:29 Central Line Flush IV PUSH 10 ml PRN PRN Administration with TPN bag changes Sodium Chloride 10 ml 04/11/24 22:00 04/20/24 14:59 Central Line Flush IV PUSH 10 ml Q8HR JULIANO Administration Radiology Results: ITS Impressions MRCP 04/09/24 12:03 IMPRESSION: 1. Multiple tiny gallstones in the dependent aspect of the normal gallbladder. 2. Diffuse acute interstitial pancreatitis with prominent nonloculated peripancreatic fluid tracking into the intra and retroperitoneal soft tissue tissues. 3. No intra or extrahepatic biliary ductal dilation or evident choledocholithiasis. 4. Increased signal in the dependent lower lobes which could represent atelectasis or pneumonia. ADDENDUM: 04/09/24 1301 CORRECTION: Incorrect contrast agent is noted in the technique section. The study was performed without and with 16 mL ProHance intravenous contrast. Pelvis Ultrasound 04/09/24 13:37 IMPRESSION: 1. Unremarkable pelvic ultrasound. Chest/Abdomen/Pelvis CTA 04/11/24 12:59 IMPRESSION: 1. No evident pulmonary embolism. Sensitivity mildly decreased in the segmental and more prominently in the subsegmental pulmonary arteries due to is suboptimal opacification of the pulmonary arteries as well as small amount of respiratory and streak artifact. 2. Small left pleural effusion with partial collapse of the left lower lobe and additional atelectasis in the right lower lobe. 3. Interval progression of nonloculated peripancreatic fluid and extensive stranding consistent with acute interstitial pancreatitis. 4. Small amount of ascites in the abdomen and pelvis with increased density of the fluid in the dependent cul-de-sac suggesting complex/exudative ascites which could be seen with small amount of hemoperitoneum or peritonitis. Chest X-Ray 04/14/24 08:29 IMPRESSION: Mild pulmonary vascular congestion with a left lower lobe infiltrate and likely adjacent effusion. Abdomen/Pelvis CT 04/19/24 09:37 IMPRESSION: 1. Pancreatitis with multiple collections seen around the pancreas extending to the area of the left adrenal gland, left paracolic gutter and in the mesentery 2. Dilated bowel loops in the pelvis which may indicate ileus. Follow-up advised. 3. Free fluid in the pelvis. 4. Slight splenomegaly. Slight hepatomegaly. Labs Labs: Laboratory Results - last 24 hr 04/20/24 05:14 WBC 16.8 H RBC 3.14 L Hgb 8.0 L Hct 25.8 L MCV 82.2 MCH 25.5 L MCHC 31.0 L RDW 17.2 H Plt Count 345 MPV 9.5 Immature Gran % (Auto) 1.4 H Neut % (Auto) 90.5 H Lymph % (Auto) 4.9 L [place] % (Auto) 2.6 Eos % (Auto) 0.5 Baso % (Auto) 0.1 L Lymph # (Auto) 0.83 L [place] # (Auto) 0.4 Eos # (Auto) 0.1 Baso # (Auto) 0.0 Abs Immat Gran (auto) 0.23 H Absolute Neuts (auto) 15.2 H Absolute Nucleated RBC 0.000 Nucleated RBC % 0.0 Sodium 136 L Potassium 4.0 Chloride 100 Carbon Dioxide 27 Anion Gap 9 BUN 10 Creatinine 1.19 H Estim Creat Clear Calc 63 Estimated GFR 53 L Glucose 175 H Calcium 8.7 C-Reactive Protein 20.4 H Lipase 404 H
[2024-04-20] MEDS: SENNA/DOCUSATE SODIUM TABLET 2 TAB PO (20:30)
[2024-04-20 21:39] VITALS: BP 126/68; PULSE 103; RESP 16; TEMP 36.1; O2SAT 97
[2024-04-21] VITALS: BP 124/62; PULSE 90; RESP 16; TEMP 36.1; O2SAT 97
[2024-04-21 04:00] VITALS: BP 127/74; PULSE 106; RESP 16; TEMP 36.2; O2SAT 97
[2024-04-21] MEDS: oxyCODONE/ACETAMINOPHEN (*CRX) 5-325 MG TABLET 1 TABLET PO ×2 (05:27→16:45)
[2024-04-21] MEDS: CENTRAL LINE FLUSH 10 ML IV PUSH ×3 (05:28→21:27)
[2024-04-21 05:43] LABS: Basophils Percent Auto 0.1 % (0.2-1.2); Eosinophils Absolute Auto 0.1 K/mm3 (0-0.3); Eosinophils Percent Auto 0.8 % (0-4.4); Hematocrit 28.4 % (37.0-47.0); Hemoglobin 8.6 g/dL (12.0-15.0); Immature Granulocyte Percent A 1.4 % (0-0.5); Lymphocytes Absolute Auto 1.44 K/mm3 (0.9-3.2); Lymphocytes Percent Auto 10.3 % (18.3-44.2); Mean Corpuscular HGB Conc 30.3 g/dl (32-36); Mean Corpuscular Hemoglobin 24.9 pg (26-34); Mean Corpuscular Volume 82.1 fl (80-100); Mean Platelet Volume 9.4 fl (7.4-10.4); Monocytes Absolute Auto 0.6 K/mm3 (0.1-0.6); Monocytes Percent Auto 4.2 % (2.6-8.5); Neutrophils Absolute Auto 11.6 K/mm3 (1.3-6.7); Neutrophils Percent Auto 83.2 % (45.5-73.1); Platelet Count Result 458 k/mm3 (150-375); Red Blood Count 3.46 M/mm3 (4.2-5.4); Red Cell Distribution Width 16.9 % (11.5-14.5); White Blood Count 13.9 K/mm3 (4.5-10.0)
[2024-04-21 05:57] LABS: Anion Gap 11 mmol/L (4-12); Blood Urea Nitrogen 12 mg/dL (7-17); Calcium 9.2 mg/dL (8.4-10.2); Carbon Dioxide 27 mmol/L (22-30); Chloride 101 mmol/L (98-107); Estimated CRCL calculation 61 ml/min; Estimated Glomerular Filt Rate 52; Glucose 121 mg/dL (65-110); Potassium 4.3 mmol/L (3.4-5.0); Sodium 139 mmol/L (137-145)
[2024-04-21 07:46] VITALS: BP 116/64; PULSE 87; RESP 16; TEMP 37; O2SAT 98
--- NOTE | 2024-04-21 08:11 | PM.IMPN ---
Progress Note: A&P Assessment and Plan (1) Prolonged PTT: Code(s): R79.1 - Abnormal coagulation profile Status: Acute (2) Anxiety and depression: Code(s): F41.9 - Anxiety disorder, unspecified; F32.A - Depression, unspecified Status: Acute (3) Depression: Code(s): F32.A - Depression, unspecified Status: Acute (4) Acute pancreatitis: Qualifiers: Acute pancreatitis complication: unspecified Pancreatitis type: unspecified pancreatitis type Qualified Code(s): K85.90 - Acute pancreatitis without necrosis or infection, unspecified Code(s): K85.90 - Acute pancreatitis without necrosis or infection, unspecified Status: Acute (5) Cholelithiasis: Qualifiers: Biliary obstruction: with biliary obstruction Cholecystitis presence: without cholecystitis Cholelithiasis location: gallbladder Qualified Code(s): K80.21 - Calculus of gallbladder without cholecystitis with obstruction Code(s): K80.20 - Calculus of gallbladder without cholecystitis without obstruction Status: Chronic Plan Gallstone pancreatitis: Code(s): K85.10 - Biliary acute pancreatitis without necrosis or infection Status: Acute Assessment and Plan: Patient presents with abdominal pain and found to have lipase >40K. CTA chest/abdomen/pelvis shows acute interstitial pancreatitis with prominent nonloculated acute peripancreatic fluid collections and stranding, tiny GS versus porcelain gallbladder with mural calcification along the dependent wall of the otherwise normal GB, no evident choledocholithiasis or intra or extra hepatic biliary ductal dilation and mild dependent atelectasis in the lower lobes. No pulmonary embolism or other acute cardiopulmonary disease. MRCP showing similar findings from the CT scan and no evidence of choledocholithiasis. Patient with GS Pancreatitis. General surgery and GI consulted and appreciate their input. TG 198. Lipase trending downward at 300. TB better at 1.1 and other liver tests normalize Repeat CT A/P (04/11) showing interval progression of non loculated peripancreatic fluid and extensive stranding consistent with acute interstitial pancreatitis Received TPN, stopped. Patient is on liquid diet Pain is tolerable 04/19 Patient still has a poor appetite, cannot have enough intake by mouth. Cholelithiasis: Qualifiers: Biliary obstruction: with biliary obstruction Cholecystitis presence: without cholecystitis Cholelithiasis location: gallbladder Qualified Code(s): K80.21 - Calculus of gallbladder without cholecystitis with obstruction Code(s): K80.20 - Calculus of gallbladder without cholecystitis without obstruction Status: Chronic Assessment and Plan: As above sepsis Leukocytosis, white blood cell is trending up, patient also has tachycardia tachypnea low-grade fever Patient is afebrile, but leukocytosis trending up. UA shows pyuria cxr:a left lower lobe infiltrate and likely adjacent effusion. CT abdomen pelvis shows no abscess necrosis or hemorrhagic transformation, small amount reactive ascites in the pelvis, small left pleural effusion with partial collapse of left lower lobe Possible reaction to pancreatitis, but also has risks of intra-abdominal infection, currently patient is on TPN that places patient on risk of infection also Patient is allergic to Levaquin Sepsis likely secondary to UTI and possible pneumonia Continue vancomycin Zosyn 04/16 Patient is afebrile, no better growth from blood culture, fungal culture pending. Leukocytosis persists, continue Zosyn, discontinue vancomycin. 04/19 WBC trending down and afeb, UCX negative and BCX negative, Cr is trending up, dc zosyn now Transaminitis: Code(s): R74.01 - Elevation of levels of liver transaminase levels Status: Acute Assessment and Plan: As above. Elevated partial thromboplastin time (PTT): Code(s): R79.1 - Abnormal coagulation profile Status: Chronic Assessment and Plan: PTT 197, previously 159 on 06/27/2023. Patient has previously been referred to Hematology but has not follow-up with this. Her mother and maternal grandmother have some form of clotting disorder and are both She has bleeding gums but no miscarriages or early bruising. 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 Hgb 13.2 upon arrival in the ED Pelvic ultrasound was unremarkable. Could be related to her elevated PTT. HH has trended down to 8.4 today but could be related to fluids. sleever consulted and appreciate their input Hypokalemia: Code(s): E87.6 - Hypokalemia Status: Acute Assessment and Plan: Repeated, potassium still low. Mag 2.2 Replace potassium Replace Phos as well. Per specialists request, I reached out to [facility] to transfer patient to [facility] for further evaluation treatment. Patient is accepted. patient is on waiting list Subjective Date/time seen: 04/21/24 08:11 Interval history: I saw examined patient today, patient still has poor appetite, feeling nauseous after eating breakfast. Pain is tolerable. Exam Narrative: GENERAL: Pleasant, in no acute distress. Well-nourished. - EYES: EOMI. Anicteric. - HENT: Moist mucous membranes. - LUNGS: Clear to auscultation bilaterally, no wheezing, rhonchi, or rales. Tachypnea - CARDIOVASCULAR: Regular rate and rhythm. No murmur. No JVD. Tachycardia - ABDOMEN: Soft, mid abdominal tender and some distended. No palpable masses. - EXTREMITIES: No edema. Peripheral pulses 2+. Non-tender. - NEUROLOGIC: No focal neurological deficits. CN II-XII grossly intact. - PSYCHIATRIC: Awake, Alert and oriented x 3. Appropriate mood and affect. - SKIN: No rashes or lesions. Warm. - LYMPH: No cervical lymphadenopathy. Objective Data Vital Signs Vital Signs: Vital Signs - 24 hr 04/20/24 10:07 04/20/24 12:00 04/20/24 16:00 Temperature 98.1 F 98.1 F Pulse Rate 94 102 H Respiratory Rate 16 16 Blood Pressure 129/66 120/59 L Pulse Oximetry 100 99 Oxygen Delivery Room Air 04/20/24 20:00 04/20/24 21:39 04/21/24 00:00 Temperature 97 F L 97 F L Pulse Rate 103 H 90 Respiratory Rate 16 16 Blood Pressure 126/68 124/62 Pulse Oximetry 97 97 Oxygen Delivery Room Air 04/21/24 04:00 04/21/24 07:46 Temperature 97.1 F L 98.6 F Pulse Rate 106 H 87 Respiratory Rate 16 16 Blood Pressure 127/74 116/64 Pulse Oximetry 97 98 Oxygen Delivery Intake/Output Intake/Output: Intake & Output 04/18/24 04/19/24 04/20/24 04/21/24 23:59 23:59 23:59 23:59 Intake Total 1911 2413 2780 300 Balance 1911 2584 2780 300 Meds/Results Medications: Active Medications Generic Name Dose Route Start Last Admin Trade Name Freq PRN Reason Stop Dose Admin Acetaminophen 500 mg 04/15/24 11:18 Acetaminophen 500 Mg Tablet PO Q6H PRN Pain Rated 1-3 Ibuprofen 800 mg in 200 mls @ 400 mls/hr 04/12/24 10:32 04/13/24 05:46 Caldolor 800 Mg/200 Ml IVPB Infused Q6H PRN Infusion Mild Pain (1-3) Ibuprofen 600 mg 04/15/24 08:23 04/19/24 08:33 Ibuprofen 600 Mg Tablet PO 600 mg Q6H PRN Administration Pain Rated 1-3 Lidocaine 1 patch 04/08/24 19:02 04/11/24 08:47 Lidocaine 5% Patch TRANSDERM 1 patch Q24H PRN Administration back pain Morphine Sulfate 2 mg 04/15/24 11:18 Morphine Sulfate (*Crx) 2 Mg/Ml Inj IV PUSH Q2H PRN Breakthrough Pain Rated 4-6 or NPO Morphine Sulfate 4 mg 04/15/24 11:18 Morphine Sulfate (*Crx) 4 Mg/Ml Inj IV PUSH Q2H PRN Breakthrough Pain Rated 7-10 or NPO Naloxone HCl 0.1 mg 04/15/24 11:18 Naloxone Hcl 0.4 Mg/Ml Vial IV PUSH Q2M PRN Opiate Reversal Ondansetron HCl 4 mg 04/08/24 13:45 04/19/24 17:03 Ondansetron Inj 4 Mg/2 Ml Vial IV PUSH 4 mg Q6H PRN Administration Nausea And Vomiting Oxycodone/Acetaminophen 1 tablet 04/15/24 11:18 04/21/24 05:27 Oxycodone/Acetaminophen (*Crx) 5-325 Mg Tablet PO 1 tablet Q4H PRN Administration Pain Rated 4-6 Oxycodone/Acetaminophen 1 tab 04/15/24 11:18 04/19/24 05:04 Oxycodone/Acetaminophen (*Crx) 10-325 Mg Tablet PO 1 tab Q6H PRN Administration Pain Rated 7-10 Pantoprazole Sodium 40 mg 04/16/24 09:00 04/20/24 10:04 Pantoprazole 40 Mg Tablet PO 40 mg QAM JULIANO Administration Polyethylene Glycol 17 gm 04/14/24 13:10 04/20/24 10:04 Polyethylene Glycol 3350 17 Gm Powd.Pack PO 17 gm QAM JULIANO Administration Potassium Chloride 20 meq 04/16/24 08:00 04/20/24 10:04 Potassium Chloride 20 Meq Er Tablet PO 20 meq DAILY@0800 JULIANO Administration Senna/Docusate Sodium 2 tab 04/14/24 21:00 04/20/24 20:30 Senna/Docusate Sodium Tablet PO 2 tab HS JULIANO Administration Sertraline HCl 50 mg 04/09/24 09:00 04/20/24 10:04 Sertraline Hcl 50 Mg Tablet PO 50 mg DAILY JULIANO Administration Sodium Chloride 20 ml 04/11/24 14:26 04/16/24 04:34 Central Line Flush IV PUSH 20 ml PRN PRN Administration after blood draws Sodium Chloride 10 ml 04/11/24 14:26 04/16/24 00:29 Central Line Flush IV PUSH 10 ml PRN PRN Administration with TPN bag changes Sodium Chloride 10 ml 04/11/24 22:00 04/21/24 05:28 Central Line Flush IV PUSH 10 ml Q8HR JULIANO Administration Radiology Results: ITS Impressions MRCP 04/09/24 12:03 IMPRESSION: 1. Multiple tiny gallstones in the dependent aspect of the normal gallbladder. 2. Diffuse acute interstitial pancreatitis with prominent nonloculated peripancreatic fluid tracking into the intra and retroperitoneal soft tissue tissues. 3. No intra or extrahepatic biliary ductal dilation or evident choledocholithiasis. 4. Increased signal in the dependent lower lobes which could represent atelectasis or pneumonia. ADDENDUM: 04/09/24 1301 CORRECTION: Incorrect contrast agent is noted in the technique section. The study was performed without and with 16 mL ProHance intravenous contrast. Pelvis Ultrasound 04/09/24 13:37 IMPRESSION: 1. Unremarkable pelvic ultrasound. Chest/Abdomen/Pelvis CTA 04/11/24 12:59 IMPRESSION: 1. No evident pulmonary embolism. Sensitivity mildly decreased in the segmental and more prominently in the subsegmental pulmonary arteries due to is suboptimal opacification of the pulmonary arteries as well as small amount of respiratory and streak artifact. 2. Small left pleural effusion with partial collapse of the left lower lobe and additional atelectasis in the right lower lobe. 3. Interval progression of nonloculated peripancreatic fluid and extensive stranding consistent with acute interstitial pancreatitis. 4. Small amount of ascites in the abdomen and pelvis with increased density of the fluid in the dependent cul-de-sac suggesting complex/exudative ascites which could be seen with small amount of hemoperitoneum or peritonitis. Chest X-Ray 04/14/24 08:29 IMPRESSION: Mild pulmonary vascular congestion with a left lower lobe infiltrate and likely adjacent effusion. Abdomen/Pelvis CT 04/19/24 09:37 IMPRESSION: 1. Pancreatitis with multiple collections seen around the pancreas extending to the area of the left adrenal gland, left paracolic gutter and in the mesentery 2. Dilated bowel loops in the pelvis which may indicate ileus. Follow-up advised. 3. Free fluid in the pelvis. 4. Slight splenomegaly. Slight hepatomegaly. Labs Labs: Laboratory Results - last 24 hr 04/21/24 05:33 WBC 13.9 H RBC 3.46 L Hgb 8.6 L Hct 28.4 L MCV 82.1 MCH 24.9 L MCHC 30.3 L RDW 16.9 H Plt Count 458 H MPV 9.4 Immature Gran % (Auto) 1.4 H Neut % (Auto) 83.2 H Lymph % (Auto) 10.3 L [place] % (Auto) 4.2 Eos % (Auto) 0.8 Baso % (Auto) 0.1 L Lymph # (Auto) 1.44 [place] # (Auto) 0.6 Eos # (Auto) 0.1 Baso # (Auto) 0.0 Abs Immat Gran (auto) 0.20 H Absolute Neuts (auto) 11.6 H Absolute Nucleated RBC 0.000 Nucleated RBC % 0.0 Sodium 139 Potassium 4.3 Chloride 101 Carbon Dioxide 27 Anion Gap 11 BUN 12 Creatinine 1.22 H Estim Creat Clear Calc 61 Estimated GFR 52 L Glucose 121 H Calcium 9.2
[2024-04-21] MEDS: polyethylene glycoL 3350 17 GM POWD.PACK PO (09:04)
[2024-04-21] MEDS: SERTRALINE HCL 50 MG TABLET PO (09:04)
[2024-04-21] MEDS: PANTOPRAZOLE 40 MG TABLET PO (09:04)
[2024-04-21] MEDS: POTASSIUM CHLORIDE 20 MEQ ER TABLET PO (09:04)
--- NOTE | 2024-04-21 10:53 | PM.PNGS ---
Progress Note: A&P Assessment and Plan (1) Leukocytosis: Qualifiers: Leukocytosis type: bandemia Qualified Code(s): D72.825 - Bandemia Code(s): D72.829 - Elevated white blood cell count, unspecified Status: Acute Assessment and Plan: She had multiple bowel movements yesterday and today. Her abdominal pain has improved and her tenderness is better. WBC count is down to 13,900 today. She was accepted to [facility] and is waiting for bed placement. Continue low fat diet for now. Continue IV Zosyn. Will repeat labs again tomorrow, including CRP and lipase, while waiting for transfer. (2) Acute pancreatitis: Qualifiers: Acute pancreatitis complication: unspecified Pancreatitis type: unspecified pancreatitis type Qualified Code(s): K85.90 - Acute pancreatitis without necrosis or infection, unspecified Code(s): K85.90 - Acute pancreatitis without necrosis or infection, unspecified Status: Acute Assessment and Plan: See plan above. GI feels she may need drainage with EUS. Awaiting transfer to [facility]. (3) Cholelithiasis: Qualifiers: Biliary obstruction: with biliary obstruction Cholecystitis presence: without cholecystitis Cholelithiasis location: gallbladder Qualified Code(s): K80.21 - Calculus of gallbladder without cholecystitis with obstruction Code(s): K80.20 - Calculus of gallbladder without cholecystitis without obstruction Status: Chronic Assessment and Plan: No acute cholecystitis noted but will eventually need laparoscopic cholecystectomy as gallstones are likely the cause of her acute pancreatitis (4) Elevated partial thromboplastin time (PTT): Code(s): R79.1 - Abnormal coagulation profile Status: Chronic Assessment and Plan: Evaluation underway, most likely would seem to be lupus anticoagulant. Plan I have discussed the patient's case and plan of care with Dr. Warner. Subjective Subjective Date/Time Seen: 04/21/24 10:53 Patient reports: no new complaints, feels better, pain is less, flatus, bowel movement and afebrile Interval history: Patient is feeling better today. She reports having multiple bowel movements yesterday and another this morning. She has more of an appetite today as well and ate more for breakfast. She denies any nausea or vomiting. She did not sleep well last night due to feeling anxious about the transfer, but states her abdominal pain was actually better. Still having LUQ pain, but states it is improving and she has been trying to minimize narcotics. She only had one Percocet last night around bedtime and one this morning, which is helping control her pain. Exam Const: General: comfortable and no acute distress GI: Inspection: non-distended GI Palp: Yes Soft to palpation, Yes Tenderness to palpation present (GI) (in the epigastric area and LUQ), No Guarding due to palpation present (GI) and No Rebound tenderness present Auscultation: normal bowel sounds Neuro: General: moves all extremities and no focal motor deficits Extrem: General: no calf tenderness and no edema Objective Data Vital Signs Vital Signs: Vital Signs - 24 hr 04/20/24 12:00 04/20/24 16:00 04/20/24 20:00 Temperature 98.1 F 98.1 F Pulse Rate 94 102 H Respiratory Rate 16 16 Blood Pressure 129/66 120/59 L Pulse Oximetry 100 99 Oxygen Delivery Room Air 04/20/24 21:39 04/21/24 00:00 04/21/24 04:00 Temperature 97 F L 97 F L 97.1 F L Pulse Rate 103 H 90 106 H Respiratory Rate 16 16 16 Blood Pressure 126/68 124/62 127/74 Pulse Oximetry 97 97 97 Oxygen Delivery 04/21/24 07:46 04/21/24 08:04 Temperature 98.6 F Pulse Rate 87 Respiratory Rate 16 Blood Pressure 116/64 Pulse Oximetry 98 Oxygen Delivery Room Air Intake/Output Intake/Output: Intake & Output 04/18/24 04/19/24 04/20/24 04/21/24 23:59 23:59 23:59 23:59 Intake Total 1911 2584 2780 660 Balance 1911 2584 2780 660 Meds/Results Medications: Active Medications Generic Name Dose Route Start Last Admin Trade Name Freq PRN Reason Stop Dose Admin Acetaminophen 500 mg 04/15/24 11:18 Acetaminophen 500 Mg Tablet PO Q6H PRN Pain Rated 1-3 Ibuprofen 800 mg in 200 mls @ 400 mls/hr 04/12/24 10:32 04/13/24 05:46 Caldolor 800 Mg/200 Ml IVPB Infused Q6H PRN Infusion Mild Pain (1-3) Ibuprofen 600 mg 04/15/24 08:23 04/19/24 08:33 Ibuprofen 600 Mg Tablet PO 600 mg Q6H PRN Administration Pain Rated 1-3 Lidocaine 1 patch 04/08/24 19:02 04/11/24 08:47 Lidocaine 5% Patch TRANSDERM 1 patch Q24H PRN Administration back pain Morphine Sulfate 2 mg 04/15/24 11:18 Morphine Sulfate (*Crx) 2 Mg/Ml Inj IV PUSH Q2H PRN Breakthrough Pain Rated 4-6 or NPO Morphine Sulfate 4 mg 04/15/24 11:18 Morphine Sulfate (*Crx) 4 Mg/Ml Inj IV PUSH Q2H PRN Breakthrough Pain Rated 7-10 or NPO Naloxone HCl 0.1 mg 04/15/24 11:18 Naloxone Hcl 0.4 Mg/Ml Vial IV PUSH Q2M PRN Opiate Reversal Ondansetron HCl 4 mg 04/08/24 13:45 04/19/24 17:03 Ondansetron Inj 4 Mg/2 Ml Vial IV PUSH 4 mg Q6H PRN Administration Nausea And Vomiting Oxycodone/Acetaminophen 1 tablet 04/15/24 11:18 04/21/24 05:27 Oxycodone/Acetaminophen (*Crx) 5-325 Mg Tablet PO 1 tablet Q4H PRN Administration Pain Rated 4-6 Oxycodone/Acetaminophen 1 tab 04/15/24 11:18 04/19/24 05:04 Oxycodone/Acetaminophen (*Crx) 10-325 Mg Tablet PO 1 tab Q6H PRN Administration Pain Rated 7-10 Pantoprazole Sodium 40 mg 04/16/24 09:00 04/21/24 09:04 Pantoprazole 40 Mg Tablet PO 40 mg QAM JULIANO Administration Polyethylene Glycol 17 gm 04/14/24 13:10 04/21/24 09:04 Polyethylene Glycol 3350 17 Gm Powd.Pack PO 17 gm QAM JULIANO Administration Potassium Chloride 20 meq 04/16/24 08:00 04/21/24 09:04 Potassium Chloride 20 Meq Er Tablet PO 20 meq DAILY@0800 JULIANO Administration Senna/Docusate Sodium 2 tab 04/14/24 21:00 04/20/24 20:30 Senna/Docusate Sodium Tablet PO 2 tab HS JULIANO Administration Sertraline HCl 50 mg 04/09/24 09:00 04/21/24 09:04 Sertraline Hcl 50 Mg Tablet PO 50 mg DAILY JULIANO Administration Sodium Chloride 20 ml 04/11/24 14:26 04/16/24 04:34 Central Line Flush IV PUSH 20 ml PRN PRN Administration after blood draws Sodium Chloride 10 ml 04/11/24 14:26 04/16/24 00:29 Central Line Flush IV PUSH 10 ml PRN PRN Administration with TPN bag changes Sodium Chloride 10 ml 04/11/24 22:00 04/21/24 05:28 Central Line Flush IV PUSH 10 ml Q8HR JULIANO Administration Radiology Results: ITS Impressions MRCP 04/09/24 12:03 IMPRESSION: 1. Multiple tiny gallstones in the dependent aspect of the normal gallbladder. 2. Diffuse acute interstitial pancreatitis with prominent nonloculated peripancreatic fluid tracking into the intra and retroperitoneal soft tissue tissues. 3. No intra or extrahepatic biliary ductal dilation or evident choledocholithiasis. 4. Increased signal in the dependent lower lobes which could represent atelectasis or pneumonia. ADDENDUM: 04/09/24 1301 CORRECTION: Incorrect contrast agent is noted in the technique section. The study was performed without and with 16 mL ProHance intravenous contrast. Pelvis Ultrasound 04/09/24 13:37 IMPRESSION: 1. Unremarkable pelvic ultrasound. Chest/Abdomen/Pelvis CTA 04/11/24 12:59 IMPRESSION: 1. No evident pulmonary embolism. Sensitivity mildly decreased in the segmental and more prominently in the subsegmental pulmonary arteries due to is suboptimal opacification of the pulmonary arteries as well as small amount of respiratory and streak artifact. 2. Small left pleural effusion with partial collapse of the left lower lobe and additional atelectasis in the right lower lobe. 3. Interval progression of nonloculated peripancreatic fluid and extensive stranding consistent with acute interstitial pancreatitis. 4. Small amount of ascites in the abdomen and pelvis with increased density of the fluid in the dependent cul-de-sac suggesting complex/exudative ascites which could be seen with small amount of hemoperitoneum or peritonitis. Chest X-Ray 04/14/24 08:29 IMPRESSION: Mild pulmonary vascular congestion with a left lower lobe infiltrate and likely adjacent effusion. Abdomen/Pelvis CT 04/19/24 09:37 IMPRESSION: 1. Pancreatitis with multiple collections seen around the pancreas extending to the area of the left adrenal gland, left paracolic gutter and in the mesentery 2. Dilated bowel loops in the pelvis which may indicate ileus. Follow-up advised. 3. Free fluid in the pelvis. 4. Slight splenomegaly. Slight hepatomegaly. Labs Labs: Laboratory Results - last 24 hr 04/21/24 05:33 WBC 13.9 H RBC 3.46 L Hgb 8.6 L Hct 28.4 L MCV 82.1 MCH 24.9 L MCHC 30.3 L RDW 16.9 H Plt Count 458 H MPV 9.4 Immature Gran % (Auto) 1.4 H Neut % (Auto) 83.2 H Lymph % (Auto) 10.3 L [place] % (Auto) 4.2 Eos % (Auto) 0.8 Baso % (Auto) 0.1 L Lymph # (Auto) 1.44 [place] # (Auto) 0.6 Eos # (Auto) 0.1 Baso # (Auto) 0.0 Abs Immat Gran (auto) 0.20 H Absolute Neuts (auto) 11.6 H Absolute Nucleated RBC 0.000 Nucleated RBC % 0.0 Sodium 139 Potassium 4.3 Chloride 101 Carbon Dioxide 27 Anion Gap 11 BUN 12 Creatinine 1.22 H Estim Creat Clear Calc 61 Estimated GFR 52 L Glucose 121 H Calcium 9.2
[2024-04-21 11:56] VITALS: BP 128/72; PULSE 101; RESP 18; TEMP 36.3; O2SAT 98
[2024-04-21 16:00] VITALS: BP 121/63; PULSE 88; RESP 16; TEMP 36.4; O2SAT 100
--- NOTE | 2024-04-21 16:12 | P.PNGI_ITS ---
Progress Note: A&P Assessment and Plan (1) Gallstone pancreatitis: Code(s): K85.10 - Biliary acute pancreatitis without necrosis or infection Status: Acute Assessment and Plan: eating more today, seems more comfortable but still requiring pain meds as needed repeat CT scan showed fluid collections, largest 5 cm prolonged course without significant improvement, may need transfer to tertiary center for further evaluation of complicated pancreatitis (2) Upper abdominal pain: Code(s): R10.10 - Upper abdominal pain, unspecified Status: Acute Assessment and Plan: continue with pain meds prn now (3) Transaminitis: Code(s): R74.01 - Elevation of levels of liver transaminase levels Status: Acute Assessment and Plan: from pancreatitis no need of ercp surgery on board, at some point will need lap blanquita but probably after resolution of pancreatitis (4) Leukocytosis: Qualifiers: Leukocytosis type: bandemia Qualified Code(s): D72.825 - Bandemia Code(s): D72.829 - Elevated white blood cell count, unspecified Status: Acute Assessment and Plan: this also could be stress response or from pancreatitis she has been on abx (5) Nausea: Code(s): R11.0 - Nausea Status: Acute Assessment and Plan: on meds Subjective Date/time seen: 04/21/24 16:12 Interval history: eating more today, still with abdominal discomfort Review of Systems Review of Systems: All systems reviewed & are unremarkable except as noted in HPI and below Exam Const: General: no acute distress Orientation/consciousness: patient oriented x3 HENMT: Face/Nose/Sinus: Normal nares present Eyes: Sclera: sclerae normal Neck: Neck: supple Resp: Effort & Inspection: normal respiratory effort Cardio: Rate: regular rate GI: Inspection: non-distended GI Palp: Yes Soft to palpation and Yes Tenderness to palpation present (GI) (diffusely tender- similar) Skin: General skin exam: no rashes or lesions noted Neuro: General: moves all extremities Extrem: General: no pedal edema and no calf tenderness Psych: Mental Status: mental status grossly normal Objective Data Vital Signs Vital Signs: Vital Signs - 24 hr 04/20/24 20:00 04/20/24 21:39 04/21/24 00:00 Temperature 97 F L 97 F L Pulse Rate 103 H 90 Respiratory Rate 16 16 Blood Pressure 126/68 124/62 Pulse Oximetry 97 97 Oxygen Delivery Room Air 04/21/24 04:00 04/21/24 07:46 04/21/24 08:04 Temperature 97.1 F L 98.6 F Pulse Rate 106 H 87 Respiratory Rate 16 16 Blood Pressure 127/74 116/64 Pulse Oximetry 97 98 Oxygen Delivery Room Air 04/21/24 11:56 Temperature 97.4 F L Pulse Rate 101 H Respiratory Rate 18 Blood Pressure 128/72 Pulse Oximetry 98 Oxygen Delivery Intake/Output Intake/Output: Intake & Output 04/18/24 04/19/24 04/20/24 04/21/24 23:59 23:59 23:59 23:59 Intake Total 1911 2584 2780 1310 Balance 1911 2584 2780 1310 Meds/Results Medications: Active Medications Generic Name Dose Route Start Last Admin Trade Name Freq PRN Reason Stop Dose Admin Acetaminophen 500 mg 04/15/24 11:18 Acetaminophen 500 Mg Tablet PO Q6H PRN Pain Rated 1-3 Ibuprofen 800 mg in 200 mls @ 400 mls/hr 04/12/24 10:32 04/13/24 05:46 Caldolor 800 Mg/200 Ml IVPB Infused Q6H PRN Infusion Mild Pain (1-3) Ibuprofen 600 mg 04/15/24 08:23 04/19/24 08:33 Ibuprofen 600 Mg Tablet PO 600 mg Q6H PRN Administration Pain Rated 1-3 Lidocaine 1 patch 04/08/24 19:02 04/11/24 08:47 Lidocaine 5% Patch TRANSDERM 1 patch Q24H PRN Administration back pain Morphine Sulfate 2 mg 04/15/24 11:18 Morphine Sulfate (*Crx) 2 Mg/Ml Inj IV PUSH Q2H PRN Breakthrough Pain Rated 4-6 or NPO Morphine Sulfate 4 mg 04/15/24 11:18 Morphine Sulfate (*Crx) 4 Mg/Ml Inj IV PUSH Q2H PRN Breakthrough Pain Rated 7-10 or NPO Naloxone HCl 0.1 mg 04/15/24 11:18 Naloxone Hcl 0.4 Mg/Ml Vial IV PUSH Q2M PRN Opiate Reversal Ondansetron HCl 4 mg 04/08/24 13:45 04/19/24 17:03 Ondansetron Inj 4 Mg/2 Ml Vial IV PUSH 4 mg Q6H PRN Administration Nausea And Vomiting Oxycodone/Acetaminophen 1 tablet 04/15/24 11:18 04/21/24 05:27 Oxycodone/Acetaminophen (*Crx) 5-325 Mg Tablet PO 1 tablet Q4H PRN Administration Pain Rated 4-6 Oxycodone/Acetaminophen 1 tab 04/15/24 11:18 04/19/24 05:04 Oxycodone/Acetaminophen (*Crx) 10-325 Mg Tablet PO 1 tab Q6H PRN Administration Pain Rated 7-10 Pantoprazole Sodium 40 mg 04/16/24 09:00 04/21/24 09:04 Pantoprazole 40 Mg Tablet PO 40 mg QAM JULIANO Administration Potassium Chloride 20 meq 04/16/24 08:00 04/21/24 09:04 Potassium Chloride 20 Meq Er Tablet PO 20 meq DAILY@0800 JULIANO Administration Sertraline HCl 50 mg 04/09/24 09:00 04/21/24 09:04 Sertraline Hcl 50 Mg Tablet PO 50 mg DAILY JULIANO Administration Sodium Chloride 20 ml 04/11/24 14:26 04/16/24 04:34 Central Line Flush IV PUSH 20 ml PRN PRN Administration after blood draws Sodium Chloride 10 ml 04/11/24 14:26 04/16/24 00:29 Central Line Flush IV PUSH 10 ml PRN PRN Administration with TPN bag changes Sodium Chloride 10 ml 04/11/24 22:00 04/21/24 14:37 Central Line Flush IV PUSH 10 ml Q8HR JULIANO Administration Radiology Results: ITS Impressions MRCP 04/09/24 12:03 IMPRESSION: 1. Multiple tiny gallstones in the dependent aspect of the normal gallbladder. 2. Diffuse acute interstitial pancreatitis with prominent nonloculated peripancreatic fluid tracking into the intra and retroperitoneal soft tissue tissues. 3. No intra or extrahepatic biliary ductal dilation or evident choledocholithiasis. 4. Increased signal in the dependent lower lobes which could represent atelectasis or pneumonia. ADDENDUM: 04/09/24 1301 CORRECTION: Incorrect contrast agent is noted in the technique section. The study was performed without and with 16 mL ProHance intravenous contrast. Pelvis Ultrasound 04/09/24 13:37 IMPRESSION: 1. Unremarkable pelvic ultrasound. Chest/Abdomen/Pelvis CTA 04/11/24 12:59 IMPRESSION: 1. No evident pulmonary embolism. Sensitivity mildly decreased in the segmental and more prominently in the subsegmental pulmonary arteries due to is suboptimal opacification of the pulmonary arteries as well as small amount of respiratory and streak artifact. 2. Small left pleural effusion with partial collapse of the left lower lobe and additional atelectasis in the right lower lobe. 3. Interval progression of nonloculated peripancreatic fluid and extensive stranding consistent with acute interstitial pancreatitis. 4. Small amount of ascites in the abdomen and pelvis with increased density of the fluid in the dependent cul-de-sac suggesting complex/exudative ascites which could be seen with small amount of hemoperitoneum or peritonitis. Chest X-Ray 04/14/24 08:29 IMPRESSION: Mild pulmonary vascular congestion with a left lower lobe infiltrate and likely adjacent effusion. Abdomen/Pelvis CT 04/19/24 09:37 IMPRESSION: 1. Pancreatitis with multiple collections seen around the pancreas extending to the area of the left adrenal gland, left paracolic gutter and in the mesentery 2. Dilated bowel loops in the pelvis which may indicate ileus. Follow-up advised. 3. Free fluid in the pelvis. 4. Slight splenomegaly. Slight hepatomegaly. Labs Labs: Laboratory Results - last 24 hr 04/21/24 05:33 WBC 13.9 H RBC 3.46 L Hgb 8.6 L Hct 28.4 L MCV 82.1 MCH 24.9 L MCHC 30.3 L RDW 16.9 H Plt Count 458 H MPV 9.4 Immature Gran % (Auto) 1.4 H Neut % (Auto) 83.2 H Lymph % (Auto) 10.3 L [place] % (Auto) 4.2 Eos % (Auto) 0.8 Baso % (Auto) 0.1 L Lymph # (Auto) 1.44 [place] # (Auto) 0.6 Eos # (Auto) 0.1 Baso # (Auto) 0.0 Abs Immat Gran (auto) 0.20 H Absolute Neuts (auto) 11.6 H Absolute Nucleated RBC 0.000 Nucleated RBC % 0.0 Sodium 139 Potassium 4.3 Chloride 101 Carbon Dioxide 27 Anion Gap 11 BUN 12 Creatinine 1.22 H Estim Creat Clear Calc 61 Estimated GFR 52 L Glucose 121 H Calcium 9.2
[2024-04-21 20:00] VITALS: BP 126/67; PULSE 86; RESP 16; TEMP 36.8; O2SAT 98
[2024-04-21] MEDS: diphenhydrAMINE HCl CAP 25 MG CAPSULE PO (21:27)
[2024-04-22 00:27] VITALS: BP 125/68; PULSE 85; RESP 16; TEMP 36.4; O2SAT 99
[2024-04-22 05:41] VITALS: BP 124/69; PULSE 96; RESP 16; TEMP 36.5; O2SAT 96
[2024-04-22] MEDS: oxyCODONE/ACETAMINOPHEN (*CRX) 5-325 MG TABLET 1 TABLET PO ×4 (05:47→22:35)
[2024-04-22] MEDS: CENTRAL LINE FLUSH 10 ML IV PUSH ×3 (06:00→20:46)
[2024-04-22 06:03] LABS: Basophils Percent Auto 0.1 % (0.2-1.2); Eosinophils Absolute Auto 0.2 K/mm3 (0-0.3); Eosinophils Percent Auto 1.2 % (0-4.4); Hematocrit 29.4 % (37.0-47.0); Immature Granulocyte Absolute 0.18 K/mm3 (0.00-0.031); Immature Granulocyte Percent A 1.3 % (0-0.5); Lymphocytes Absolute Auto 1.62 K/mm3 (0.9-3.2); Lymphocytes Percent Auto 11.4 % (18.3-44.2); Mean Corpuscular HGB Conc 30.6 g/dl (32-36); Mean Corpuscular Hemoglobin 24.7 pg (26-34); Mean Corpuscular Volume 80.5 fl (80-100); Mean Platelet Volume 9.5 fl (7.4-10.4); Monocytes Absolute Auto 0.6 K/mm3 (0.1-0.6); Monocytes Percent Auto 4.4 % (2.6-8.5); Neutrophils Absolute Auto 11.6 K/mm3 (1.3-6.7); Neutrophils Percent Auto 81.6 % (45.5-73.1); Platelet Count Result 527 k/mm3 (150-375); Red Blood Count 3.65 M/mm3 (4.2-5.4); Red Cell Distribution Width 16.6 % (11.5-14.5); White Blood Count 14.2 K/mm3 (4.5-10.0)
[2024-04-22 06:15] LABS: Alanine Aminotransferase 53 U/L (6-35); Albumin Level 3.9 g/dL (3.5-5.1); Alkaline Phosphatase 169 U/L (38-126); Anion Gap 12 mmol/L (4-12); Aspartate Amino Transferase 34 U/L (14-36); Bilirubin,Total 0.7 mg/dL (0.2-1.3); Blood Urea Nitrogen 17 mg/dL (7-17); Calcium 9.7 mg/dL (8.4-10.2); Carbon Dioxide 26 mmol/L (22-30); Chloride 101 mmol/L (98-107); Estimated CRCL calculation 62 ml/min; Estimated Glomerular Filt Rate 52; Glucose 113 mg/dL (65-110); Lipase 487 U/L (23-300); Potassium 4.8 mmol/L (3.4-5.0); Sodium 139 mmol/L (137-145)
[2024-04-22 06:26] LABS: CRP 14.6 mg/dL (<1.0)
[2024-04-22] MEDS: PANTOPRAZOLE 40 MG TABLET PO (09:04)
[2024-04-22] MEDS: SERTRALINE HCL 50 MG TABLET PO (09:04)
[2024-04-22] MEDS: POTASSIUM CHLORIDE 20 MEQ ER TABLET PO (09:05)
--- NOTE | 2024-04-22 09:12 | P.PNIM_ITS ---
Progress Note: A&P Assessment and Plan (1) Prolonged PTT: Code(s): R79.1 - Abnormal coagulation profile Status: Acute (2) Anxiety and depression: Code(s): F41.9 - Anxiety disorder, unspecified; F32.A - Depression, unspecified Status: Acute (3) Depression: Code(s): F32.A - Depression, unspecified Status: Acute (4) Acute pancreatitis: Qualifiers: Acute pancreatitis complication: unspecified Pancreatitis type: unspecified pancreatitis type Qualified Code(s): K85.90 - Acute pancreatitis without necrosis or infection, unspecified Code(s): K85.90 - Acute pancreatitis without necrosis or infection, unspecified Status: Acute (5) Cholelithiasis: Qualifiers: Biliary obstruction: with biliary obstruction Cholecystitis presence: without cholecystitis Cholelithiasis location: gallbladder Qualified Code(s): K80.21 - Calculus of gallbladder without cholecystitis with obstruction Code(s): K80.20 - Calculus of gallbladder without cholecystitis without obstruction Status: Chronic Plan Gallstone pancreatitis: Code(s): K85.10 - Biliary acute pancreatitis without necrosis or infection Status: Acute Assessment and Plan: Patient presents with abdominal pain and found to have lipase >40K. CTA chest/abdomen/pelvis shows acute interstitial pancreatitis with prominent nonloculated acute peripancreatic fluid collections and stranding, tiny GS versus porcelain gallbladder with mural calcification along the dependent wall of the otherwise normal GB, no evident choledocholithiasis or intra or extra hepatic biliary ductal dilation and mild dependent atelectasis in the lower lobes. No pulmonary embolism or other acute cardiopulmonary disease. MRCP showing similar findings from the CT scan and no evidence of choledocholithiasis. Patient with GS Pancreatitis. General surgery and GI consulted and appreciate their input. TG 198. Lipase trending downward at 300. TB better at 1.1 and other liver tests normalize Repeat CT A/P (04/11) showing interval progression of non loculated peripancreatic fluid and extensive stranding consistent with acute interstitial pancreatitis Received TPN, stopped. Patient is on liquid diet Pain is tolerable 04/19 Patient has improve appetite, but she cannot have enough intake by mouth. Pain is tolerable Cholelithiasis: Qualifiers: Biliary obstruction: with biliary obstruction Cholecystitis presence: without cholecystitis Cholelithiasis location: gallbladder Qualified Code(s): K80.21 - Calculus of gallbladder without cholecystitis with obstruction Code(s): K80.20 - Calculus of gallbladder without cholecystitis without obstruction Status: Chronic Assessment and Plan: As above sepsis Leukocytosis, white blood cell is trending up, patient also has tachycardia tachypnea low-grade fever Patient is afebrile, but leukocytosis trending up. UA shows pyuria cxr:a left lower lobe infiltrate and likely adjacent effusion. CT abdomen pelvis shows no abscess necrosis or hemorrhagic transformation, small amount reactive ascites in the pelvis, small left pleural effusion with partial collapse of left lower lobe Possible reaction to pancreatitis, but also has risks of intra-abdominal infection, currently patient is on TPN that places patient on risk of infection also Patient is allergic to Levaquin Sepsis likely secondary to UTI and possible pneumonia Continue vancomycin Zosyn 04/16 Patient is afebrile, no better growth from blood culture, fungal culture pending. Leukocytosis persists, continue Zosyn, discontinue vancomycin. 04/19 WBC trending down and afeb, UCX negative and BCX negative, Cr is trending up, dc zosyn now Sepsis is resolved Leukocytosis likely secondary to inflammation due to pancreatitis Transaminitis: Code(s): R74.01 - Elevation of levels of liver transaminase levels Status: Acute Assessment and Plan: As above. Elevated partial thromboplastin time (PTT): Code(s): R79.1 - Abnormal coagulation profile Status: Chronic Assessment and Plan: PTT 197, previously 159 on 06/27/2023. Patient has previously been referred to Hematology but has not follow-up with this. Her mother and maternal grandmother have some form of clotting disorder and are both She has bleeding gums but no miscarriages or early bruising. 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 Hgb 13.2 upon arrival in the ED Pelvic ultrasound was unremarkable. Could be related to her elevated PTT. HH has trended down to 8.4 today but could be related to fluids. sustainability manager consulted and appreciate their input Hypokalemia: Code(s): E87.6 - Hypokalemia Status: Acute Assessment and Plan: Repeated, potassium still low. Mag 2.2 Replace potassium Replace Phos as well. Per specialists request, I reached out to [facility] to transfer patient to [facility] for further evaluation treatment. Patient is accepted. patient is on waiting list for transfer Subjective Date/time seen: 04/22/24 09:12 Interval history: Appetite continue to improve, still has nauseous up to eating, and also has left-sided abdomen pain but tolerate. Patient denies vomiting. Exam Narrative: GENERAL: Pleasant, in no acute distress. Well-nourished. - EYES: EOMI. Anicteric. - HENT: Moist mucous membranes. - LUNGS: Clear to auscultation bilateral ly, no wheezing, rhonchi, or rales. - CARDIOVASCULAR: Regular rate and rhyth m. No murmur. No JVD. - ABDOMEN: Soft, left mid abdomen tender and non-distended. No palpable masses. - EXTREMITIES: No edema. Peripheral puls es 2+. Non-tender. - NEUROLOGIC: No focal neurological defi cits. CN II-XII grossly intact. - PSYCHIATRIC: Awake, Alert and oriented x 3. Appropriate mood and affect. - SKIN: No rashes or lesions. Warm. - LYMPH: No cervical lymphadenopathy. Objective Data Vital Signs Vital Signs: Vital Signs - 24 hr 04/21/24 11:56 04/21/24 16:00 04/21/24 20:00 Temperature 97.4 F L 97.6 F 98.2 F Pulse Rate 101 H 88 86 Respiratory Rate 18 16 16 Blood Pressure 128/72 121/63 126/67 Pulse Oximetry 98 100 98 Oxygen Delivery 04/21/24 20:00 04/22/24 00:27 04/22/24 05:41 Temperature 97.5 F L 97.7 F Pulse Rate 85 96 Respiratory Rate 16 16 Blood Pressure 125/68 124/69 Pulse Oximetry 99 96 Oxygen Delivery Room Air Intake/Output Intake/Output: Intake & Output 04/19/24 04/20/24 04/21/24 04/22/24 23:59 23:59 23:59 23:59 Intake Total 2584 2780 1570 250 Balance 2584 2780 1570 250 Meds/Results Medications: Active Medications Generic Name Dose Route Start Last Admin Trade Name Freq PRN Reason Stop Dose Admin Acetaminophen 500 mg 04/15/24 11:18 Acetaminophen 500 Mg Tablet PO Q6H PRN Pain Rated 1-3 Ibuprofen 800 mg in 200 mls @ 400 mls/hr 04/12/24 10:32 04/13/24 05:46 Caldolor 800 Mg/200 Ml IVPB Infused Q6H PRN Infusion Mild Pain (1-3) Ibuprofen 600 mg 04/15/24 08:23 04/19/24 08:33 Ibuprofen 600 Mg Tablet PO 600 mg Q6H PRN Administration Pain Rated 1-3 Lidocaine 1 patch 04/08/24 19:02 04/11/24 08:47 Lidocaine 5% Patch TRANSDERM 1 patch Q24H PRN Administration back pain Morphine Sulfate 2 mg 04/15/24 11:18 Morphine Sulfate (*Crx) 2 Mg/Ml Inj IV PUSH Q2H PRN Breakthrough Pain Rated 4-6 or NPO Morphine Sulfate 4 mg 04/15/24 11:18 Morphine Sulfate (*Crx) 4 Mg/Ml Inj IV PUSH Q2H PRN Breakthrough Pain Rated 7-10 or NPO Naloxone HCl 0.1 mg 04/15/24 11:18 Naloxone Hcl 0.4 Mg/Ml Vial IV PUSH Q2M PRN Opiate Reversal Ondansetron HCl 4 mg 04/08/24 13:45 04/19/24 17:03 Ondansetron Inj 4 Mg/2 Ml Vial IV PUSH 4 mg Q6H PRN Administration Nausea And Vomiting Oxycodone/Acetaminophen 1 tablet 04/15/24 11:18 04/22/24 05:47 Oxycodone/Acetaminophen (*Crx) 5-325 Mg Tablet PO 1 tablet Q4H PRN Administration Pain Rated 4-6 Oxycodone/Acetaminophen 1 tab 04/15/24 11:18 04/19/24 05:04 Oxycodone/Acetaminophen (*Crx) 10-325 Mg Tablet PO 1 tab Q6H PRN Administration Pain Rated 7-10 Pantoprazole Sodium 40 mg 04/16/24 09:00 04/22/24 09:04 Pantoprazole 40 Mg Tablet PO 40 mg QAM JULIANO Administration Potassium Chloride 20 meq 04/16/24 08:00 04/22/24 09:05 Potassium Chloride 20 Meq Er Tablet PO 20 meq DAILY@0800 JULIANO Administration Sertraline HCl 50 mg 04/09/24 09:00 04/22/24 09:04 Sertraline Hcl 50 Mg Tablet PO 50 mg DAILY JULIANO Administration Sodium Chloride 20 ml 04/11/24 14:26 04/16/24 04:34 Central Line Flush IV PUSH 20 ml PRN PRN Administration after blood draws Sodium Chloride 10 ml 04/11/24 14:26 04/16/24 00:29 Central Line Flush IV PUSH 10 ml PRN PRN Administration with TPN bag changes Sodium Chloride 10 ml 04/11/24 22:00 04/22/24 06:00 Central Line Flush IV PUSH 10 ml Q8HR JULIANO Administration Radiology Results: ITS Impressions MRCP 04/09/24 12:03 IMPRESSION: 1. Multiple tiny gallstones in the dependent aspect of the normal gallbladder. 2. Diffuse acute interstitial pancreatitis with prominent nonloculated peripancreatic fluid tracking into the intra and retroperitoneal soft tissue tissues. 3. No intra or extrahepatic biliary ductal dilation or evident choledocholithiasis. 4. Increased signal in the dependent lower lobes which could represent atelectasis or pneumonia. ADDENDUM: 04/09/24 1301 CORRECTION: Incorrect contrast agent is noted in the technique section. The study was performed without and with 16 mL ProHance intravenous contrast. Pelvis Ultrasound 04/09/24 13:37 IMPRESSION: 1. Unremarkable pelvic ultrasound. Chest/Abdomen/Pelvis CTA 04/11/24 12:59 IMPRESSION: 1. No evident pulmonary embolism. Sensitivity mildly decreased in the segmental and more prominently in the subsegmental pulmonary arteries due to is suboptimal opacification of the pulmonary arteries as well as small amount of respiratory and streak artifact. 2. Small left pleural effusion with partial collapse of the left lower lobe and additional atelectasis in the right lower lobe. 3. Interval progression of nonloculated peripancreatic fluid and extensive stranding consistent with acute interstitial pancreatitis. 4. Small amount of ascites in the abdomen and pelvis with increased density of the fluid in the dependent cul-de-sac suggesting complex/exudative ascites which could be seen with small amount of hemoperitoneum or peritonitis. Chest X-Ray 04/14/24 08:29 IMPRESSION: Mild pulmonary vascular congestion with a left lower lobe infiltrate and likely adjacent effusion. Abdomen/Pelvis CT 04/19/24 09:37 IMPRESSION: 1. Pancreatitis with multiple collections seen around the pancreas extending to the area of the left adrenal gland, left paracolic gutter and in the mesentery 2. Dilated bowel loops in the pelvis which may indicate ileus. Follow-up advised. 3. Free fluid in the pelvis. 4. Slight splenomegaly. Slight hepatomegaly. Labs Labs: Laboratory Results - last 24 hr 04/22/24 05:54 WBC 14.2 H RBC 3.65 L Hgb 9.0 L Hct 29.4 L MCV 80.5 MCH 24.7 L MCHC 30.6 L RDW 16.6 H Plt Count 527 H MPV 9.5 Immature Gran % (Auto) 1.3 H Neut % (Auto) 81.6 H Lymph % (Auto) 11.4 L [place] % (Auto) 4.4 Eos % (Auto) 1.2 Baso % (Auto) 0.1 L Lymph # (Auto) 1.62 [place] # (Auto) 0.6 Eos # (Auto) 0.2 Baso # (Auto) 0.0 Abs Immat Gran (auto) 0.18 H Absolute Neuts (auto) 11.6 H Absolute Nucleated RBC 0.000 Nucleated RBC % 0.0 Sodium 139 Potassium 4.8 Chloride 101 Carbon Dioxide 26 Anion Gap 12 BUN 17 Creatinine 1.21 H Estim Creat Clear Calc 62 Estimated GFR 52 L Glucose 113 H Calcium 9.7 Total Bilirubin 0.7 AST 34 ALT 53 H Alkaline Phosphatase 169 H C-Reactive Protein 14.6 H Total Protein 8.0 Albumin 3.9 Lipase 487 H
[2024-04-22 12:00] VITALS: BP 132/76; PULSE 107; RESP 18; TEMP 36.9; O2SAT 98
--- NOTE | 2024-04-22 12:36 | P.PNGS_ITS ---
Progress Note: A&P Assessment and Plan (1) Leukocytosis: Qualifiers: Leukocytosis type: bandemia Qualified Code(s): D72.825 - Bandemia Code(s): D72.829 - Elevated white blood cell count, unspecified Status: Acute Assessment and Plan: Still elevated but left shift is decreasing. See this as an overall improvement. (2) Acute pancreatitis: Qualifiers: Acute pancreatitis complication: unspecified Pancreatitis type: unspecified pancreatitis type Qualified Code(s): K85.90 - Acute pancreatitis without necrosis or infection, unspecified Code(s): K85.90 - Acute pancreatitis without necrosis or infection, unspecified Status: Acute Assessment and Plan: Improving. Lipase is still higher but CRP is lower. Decision is up to hospitalist and Gastroenterology as far as discharge. From a surgical perspective, she can be discharged and see me in the office in 2 weeks. She has been accepted to [facility] but await transfer orders. Transfer orders may be canceled if okay with Gastroenterology. (3) Cholelithiasis: Qualifiers: Biliary obstruction: with biliary obstruction Cholecystitis presence: without cholecystitis Cholelithiasis location: gallbladder Qualified Code(s): K80.21 - Calculus of gallbladder without cholecystitis with obstruction Code(s): K80.20 - Calculus of gallbladder without cholecystitis without obstruction Status: Chronic Assessment and Plan: No acute cholecystitis noted but will eventually need laparoscopic cholecystectomy as gallstones are likely the cause of her acute pancreatitis. Prefer to perform cholecystectomy when pancreatitis has improved further and diagnosis has been made for chronically elevated APTT (4) Elevated partial thromboplastin time (PTT): Code(s): R79.1 - Abnormal coagulation profile Status: Chronic Assessment and Plan: From mixing studies, lupus anticoagulant would seem to be the cause. Await Hematology input for diagnosis. Subjective Subjective Date/Time Seen: 04/22/24 12:36 Patient reports: no new complaints, feels better, pain is less, tolerating a regular diet (Low-fat diet), voiding w/o difficulty, bowel movement and afebrile Interval history: Taking occasional Percocet as needed for pain but definitely feels better. Review of Systems Review of Systems: All systems reviewed & are unremarkable except as noted in HPI and below (HPI) Exam Const: General: comfortable, no acute distress, alert and awake Orientation/consciousness: patient oriented x3 GI: Inspection: normal to inspection and non-distended GI Palp: Yes Soft to palpation, Yes Tenderness to palpation present (GI) (Left upper quadrant), No Guarding due to palpation present (GI) and No Rebound tenderness present Neuro: General: patient oriented x3 and no focal motor deficits Extrem: General: no calf tenderness and no edema Psych: Affect: normal affect Insight: Good insight present (Psych) Judgement: Good judgement present (Psych) Objective Data Vital Signs Vital Signs: Vital Signs - 24 hr 04/21/24 16:00 04/21/24 20:00 04/21/24 20:00 Temperature 36.4 C 36.8 C Pulse Rate 88 86 Respiratory Rate 16 16 Blood Pressure 121/63 126/67 Pulse Oximetry 100 98 Oxygen Delivery Room Air 04/22/24 00:27 04/22/24 05:41 04/22/24 12:00 Temperature 36.4 C L 36.5 C 36.9 C Pulse Rate 85 96 107 H Respiratory Rate 16 16 18 Blood Pressure 125/68 124/69 132/76 Pulse Oximetry 99 96 98 Oxygen Delivery Intake/Output Intake/Output: Intake & Output 04/19/24 04/20/24 04/21/24 04/22/24 23:59 23:59 23:59 23:59 Intake Total 2584 2780 1570 460 Balance 2584 2780 1570 460 Meds/Results Medications: Active Medications Generic Name Dose Route Start Last Admin Trade Name Freq PRN Reason Stop Dose Admin Acetaminophen 500 mg 04/15/24 11:18 Acetaminophen 500 Mg Tablet PO Q6H PRN Pain Rated 1-3 Ibuprofen 800 mg in 200 mls @ 400 mls/hr 04/12/24 10:32 04/13/24 05:46 Caldolor 800 Mg/200 Ml IVPB Infused Q6H PRN Infusion Mild Pain (1-3) Ibuprofen 600 mg 04/15/24 08:23 04/19/24 08:33 Ibuprofen 600 Mg Tablet PO 600 mg Q6H PRN Administration Pain Rated 1-3 Lidocaine 1 patch 04/08/24 19:02 04/11/24 08:47 Lidocaine 5% Patch TRANSDERM 1 patch Q24H PRN Administration back pain Morphine Sulfate 2 mg 04/15/24 11:18 Morphine Sulfate (*Crx) 2 Mg/Ml Inj IV PUSH Q2H PRN Breakthrough Pain Rated 4-6 or NPO Morphine Sulfate 4 mg 04/15/24 11:18 Morphine Sulfate (*Crx) 4 Mg/Ml Inj IV PUSH Q2H PRN Breakthrough Pain Rated 7-10 or NPO Naloxone HCl 0.1 mg 04/15/24 11:18 Naloxone Hcl 0.4 Mg/Ml Vial IV PUSH Q2M PRN Opiate Reversal Ondansetron HCl 4 mg 04/08/24 13:45 04/19/24 17:03 Ondansetron Inj 4 Mg/2 Ml Vial IV PUSH 4 mg Q6H PRN Administration Nausea And Vomiting Oxycodone/Acetaminophen 1 tablet 04/15/24 11:18 04/22/24 09:48 Oxycodone/Acetaminophen (*Crx) 5-325 Mg Tablet PO 1 tablet Q4H PRN Administration Pain Rated 4-6 Oxycodone/Acetaminophen 1 tab 04/15/24 11:18 04/19/24 05:04 Oxycodone/Acetaminophen (*Crx) 10-325 Mg Tablet PO 1 tab Q6H PRN Administration Pain Rated 7-10 Pantoprazole Sodium 40 mg 04/16/24 09:00 04/22/24 09:04 Pantoprazole 40 Mg Tablet PO 40 mg QAM JULIANO Administration Potassium Chloride 20 meq 04/16/24 08:00 04/22/24 09:05 Potassium Chloride 20 Meq Er Tablet PO 20 meq DAILY@0800 JULIANO Administration Sertraline HCl 50 mg 04/09/24 09:00 04/22/24 09:04 Sertraline Hcl 50 Mg Tablet PO 50 mg DAILY JULIANO Administration Sodium Chloride 20 ml 04/11/24 14:26 04/16/24 04:34 Central Line Flush IV PUSH 20 ml PRN PRN Administration after blood draws Sodium Chloride 10 ml 04/11/24 14:26 04/16/24 00:29 Central Line Flush IV PUSH 10 ml PRN PRN Administration with TPN bag changes Sodium Chloride 10 ml 04/11/24 22:00 04/22/24 06:00 Central Line Flush IV PUSH 10 ml Q8HR JULIANO Administration Radiology Results: ITS Impressions MRCP 04/09/24 12:03 IMPRESSION: 1. Multiple tiny gallstones in the dependent aspect of the normal gallbladder. 2. Diffuse acute interstitial pancreatitis with prominent nonloculated peripancreatic fluid tracking into the intra and retroperitoneal soft tissue tissues. 3. No intra or extrahepatic biliary ductal dilation or evident choledocholithiasis. 4. Increased signal in the dependent lower lobes which could represent atelectasis or pneumonia. ADDENDUM: 04/09/24 1301 CORRECTION: Incorrect contrast agent is noted in the technique section. The study was performed without and with 16 mL ProHance intravenous contrast. Pelvis Ultrasound 04/09/24 13:37 IMPRESSION: 1. Unremarkable pelvic ultrasound. Chest/Abdomen/Pelvis CTA 04/11/24 12:59 IMPRESSION: 1. No evident pulmonary embolism. Sensitivity mildly decreased in the segmental and more prominently in the subsegmental pulmonary arteries due to is suboptimal opacification of the pulmonary arteries as well as small amount of respiratory and streak artifact. 2. Small left pleural effusion with partial collapse of the left lower lobe and additional atelectasis in the right lower lobe. 3. Interval progression of nonloculated peripancreatic fluid and extensive stranding consistent with acute interstitial pancreatitis. 4. Small amount of ascites in the abdomen and pelvis with increased density of the fluid in the dependent cul-de-sac suggesting complex/exudative ascites which could be seen with small amount of hemoperitoneum or peritonitis. Chest X-Ray 04/14/24 08:29 IMPRESSION: Mild pulmonary vascular congestion with a left lower lobe infiltrate and likely adjacent effusion. Abdomen/Pelvis CT 04/19/24 09:37 IMPRESSION: 1. Pancreatitis with multiple collections seen around the pancreas extending to the area of the left adrenal gland, left paracolic gutter and in the mesentery 2. Dilated bowel loops in the pelvis which may indicate ileus. Follow-up advised. 3. Free fluid in the pelvis. 4. Slight splenomegaly. Slight hepatomegaly. Labs Labs: Laboratory Results - last 24 hr 04/22/24 05:54 WBC 14.2 H RBC 3.65 L Hgb 9.0 L Hct 29.4 L MCV 80.5 MCH 24.7 L MCHC 30.6 L RDW 16.6 H Plt Count 527 H MPV 9.5 Immature Gran % (Auto) 1.3 H Neut % (Auto) 81.6 H Lymph % (Auto) 11.4 L [place] % (Auto) 4.4 Eos % (Auto) 1.2 Baso % (Auto) 0.1 L Lymph # (Auto) 1.62 [place] # (Auto) 0.6 Eos # (Auto) 0.2 Baso # (Auto) 0.0 Abs Immat Gran (auto) 0.18 H Absolute Neuts (auto) 11.6 H Absolute Nucleated RBC 0.000 Nucleated RBC % 0.0 Sodium 139 Potassium 4.8 Chloride 101 Carbon Dioxide 26 Anion Gap 12 BUN 17 Creatinine 1.21 H Estim Creat Clear Calc 62 Estimated GFR 52 L Glucose 113 H Calcium 9.7 Total Bilirubin 0.7 AST 34 ALT 53 H Alkaline Phosphatase 169 H C-Reactive Protein 14.6 H Total Protein 8.0 Albumin 3.9 Lipase 487 H
[2024-04-22 16:00] VITALS: BP 122/78; PULSE 89; RESP 18; TEMP 36.7; O2SAT 98
--- NOTE | 2024-04-22 17:15 | WPDGIPROGNO ---
Progress Note: A&P Assessment and Plan (1) Gallstone pancreatitis: Code(s): K85.10 - Biliary acute pancreatitis without necrosis or infection Status: Acute Assessment and Plan: eating about 30-40%, seems more comfortable but still requiring pain meds as needed probably she can go home tomorrow and then we can set up a follow-up in office (2) Upper abdominal pain: Code(s): R10.10 - Upper abdominal pain, unspecified Status: Acute Assessment and Plan: pain meds prn now (3) Transaminitis: Code(s): R74.01 - Elevation of levels of liver transaminase levels Status: Acute Assessment and Plan: from pancreatitis no need of ercp (4) Leukocytosis: Qualifiers: Leukocytosis type: bandemia Qualified Code(s): D72.825 - Bandemia Code(s): D72.829 - Elevated white blood cell count, unspecified Status: Acute Assessment and Plan: down to 14k most likely from severe pancreatitis (5) Nausea: Code(s): R11.0 - Nausea Status: Acute Assessment and Plan: on meds Subjective Date/time seen: 04/22/24 17:15 Interval history: overall pain is better, eating about 30% Review of Systems Review of Systems: All systems reviewed & are unremarkable except as noted in HPI and below Exam Const: General: comfortable, no acute distress, alert and awake Orientation/consciousness: patient oriented x3 HENMT: Face/Nose/Sinus: Normal nares present Eyes: General: appearance normal, both eyes and all related structures Neck: Neck: supple Resp: Effort & Inspection: normal respiratory effort Cardio: Rate: regular rate GI: Inspection: normal to inspection and non-distended GI Palp: Yes Soft to palpation, Yes Tenderness to palpation present (GI) (Left upper quadrant), No Guarding due to palpation present (GI) and No Rebound tenderness present Neuro: General: patient oriented x3 and no focal motor deficits Extrem: General: no calf tenderness and no edema Psych: Affect: normal affect Insight: Good insight present (Psych) Judgement: Good judgement present (Psych) Objective Data Vital Signs Vital Signs: Vital Signs - 24 hr 04/21/24 20:00 04/21/24 20:00 04/22/24 00:27 Temperature 98.2 F 97.5 F L Pulse Rate 86 85 Respiratory Rate 16 16 Blood Pressure 126/67 125/68 Pulse Oximetry 98 99 Oxygen Delivery Room Air 04/22/24 05:41 04/22/24 08:00 04/22/24 12:00 Temperature 97.7 F 98.5 F Pulse Rate 96 107 H Respiratory Rate 16 18 Blood Pressure 124/69 132/76 Pulse Oximetry 96 98 Oxygen Delivery Room Air 04/22/24 16:00 Temperature 98.1 F Pulse Rate 89 Respiratory Rate 18 Blood Pressure 122/78 Pulse Oximetry 98 Oxygen Delivery Intake/Output Intake/Output: Intake & Output 04/19/24 04/20/24 04/21/24 04/22/24 23:59 23:59 23:59 23:59 Intake Total 2584 2780 1570 820 Balance 2584 2780 1570 820 Meds/Results Medications: Active Medications Generic Name Dose Route Start Last Admin Trade Name Freq PRN Reason Stop Dose Admin Acetaminophen 500 mg 04/15/24 11:18 Acetaminophen 500 Mg Tablet PO Q6H PRN Pain Rated 1-3 Ibuprofen 800 mg in 200 mls @ 400 mls/hr 04/12/24 10:32 04/13/24 05:46 Caldolor 800 Mg/200 Ml IVPB Infused Q6H PRN Infusion Mild Pain (1-3) Ibuprofen 600 mg 04/15/24 08:23 04/19/24 08:33 Ibuprofen 600 Mg Tablet PO 600 mg Q6H PRN Administration Pain Rated 1-3 Lidocaine 1 patch 04/08/24 19:02 04/11/24 08:47 Lidocaine 5% Patch TRANSDERM 1 patch Q24H PRN Administration back pain Morphine Sulfate 2 mg 04/15/24 11:18 Morphine Sulfate (*Crx) 2 Mg/Ml Inj IV PUSH Q2H PRN Breakthrough Pain Rated 4-6 or NPO Morphine Sulfate 4 mg 04/15/24 11:18 Morphine Sulfate (*Crx) 4 Mg/Ml Inj IV PUSH Q2H PRN Breakthrough Pain Rated 7-10 or NPO Naloxone HCl 0.1 mg 04/15/24 11:18 Naloxone Hcl 0.4 Mg/Ml Vial IV PUSH Q2M PRN Opiate Reversal Ondansetron HCl 4 mg 04/08/24 13:45 04/19/24 17:03 Ondansetron Inj 4 Mg/2 Ml Vial IV PUSH 4 mg Q6H PRN Administration Nausea And Vomiting Oxycodone/Acetaminophen 1 tablet 04/15/24 11:18 04/22/24 16:35 Oxycodone/Acetaminophen (*Crx) 5-325 Mg Tablet PO 1 tablet Q4H PRN Administration Pain Rated 4-6 Oxycodone/Acetaminophen 1 tab 04/15/24 11:18 04/19/24 05:04 Oxycodone/Acetaminophen (*Crx) 10-325 Mg Tablet PO 1 tab Q6H PRN Administration Pain Rated 7-10 Pantoprazole Sodium 40 mg 04/16/24 09:00 04/22/24 09:04 Pantoprazole 40 Mg Tablet PO 40 mg QAM JULIANO Administration Sertraline HCl 50 mg 04/09/24 09:00 04/22/24 09:04 Sertraline Hcl 50 Mg Tablet PO 50 mg DAILY JULIANO Administration Sodium Chloride 20 ml 04/11/24 14:26 04/16/24 04:34 Central Line Flush IV PUSH 20 ml PRN PRN Administration after blood draws Sodium Chloride 10 ml 04/11/24 14:26 04/16/24 00:29 Central Line Flush IV PUSH 10 ml PRN PRN Administration with TPN bag changes Sodium Chloride 10 ml 04/11/24 22:00 04/22/24 15:23 Central Line Flush IV PUSH 10 ml Q8HR JULIANO Administration Radiology Results: ITS Impressions MRCP 04/09/24 12:03 IMPRESSION: 1. Multiple tiny gallstones in the dependent aspect of the normal gallbladder. 2. Diffuse acute interstitial pancreatitis with prominent nonloculated peripancreatic fluid tracking into the intra and retroperitoneal soft tissue tissues. 3. No intra or extrahepatic biliary ductal dilation or evident choledocholithiasis. 4. Increased signal in the dependent lower lobes which could represent atelectasis or pneumonia. ADDENDUM: 04/09/24 1301 CORRECTION: Incorrect contrast agent is noted in the technique section. The study was performed without and with 16 mL ProHance intravenous contrast. Pelvis Ultrasound 04/09/24 13:37 IMPRESSION: 1. Unremarkable pelvic ultrasound. Chest/Abdomen/Pelvis CTA 04/11/24 12:59 IMPRESSION: 1. No evident pulmonary embolism. Sensitivity mildly decreased in the segmental and more prominently in the subsegmental pulmonary arteries due to is suboptimal opacification of the pulmonary arteries as well as small amount of respiratory and streak artifact. 2. Small left pleural effusion with partial collapse of the left lower lobe and additional atelectasis in the right lower lobe. 3. Interval progression of nonloculated peripancreatic fluid and extensive stranding consistent with acute interstitial pancreatitis. 4. Small amount of ascites in the abdomen and pelvis with increased density of the fluid in the dependent cul-de-sac suggesting complex/exudative ascites which could be seen with small amount of hemoperitoneum or peritonitis. Chest X-Ray 04/14/24 08:29 IMPRESSION: Mild pulmonary vascular congestion with a left lower lobe infiltrate and likely adjacent effusion. Abdomen/Pelvis CT 04/19/24 09:37 IMPRESSION: 1. Pancreatitis with multiple collections seen around the pancreas extending to the area of the left adrenal gland, left paracolic gutter and in the mesentery 2. Dilated bowel loops in the pelvis which may indicate ileus. Follow-up advised. 3. Free fluid in the pelvis. 4. Slight splenomegaly. Slight hepatomegaly. Labs Labs: Laboratory Results - last 24 hr 04/22/24 05:54 WBC 14.2 H RBC 3.65 L Hgb 9.0 L Hct 29.4 L MCV 80.5 MCH 24.7 L MCHC 30.6 L RDW 16.6 H Plt Count 527 H MPV 9.5 Immature Gran % (Auto) 1.3 H Neut % (Auto) 81.6 H Lymph % (Auto) 11.4 L [place] % (Auto) 4.4 Eos % (Auto) 1.2 Baso % (Auto) 0.1 L Lymph # (Auto) 1.62 [place] # (Auto) 0.6 Eos # (Auto) 0.2 Baso # (Auto) 0.0 Abs Immat Gran (auto) 0.18 H Absolute Neuts (auto) 11.6 H Absolute Nucleated RBC 0.000 Nucleated RBC % 0.0 Sodium 139 Potassium 4.8 Chloride 101 Carbon Dioxide 26 Anion Gap 12 BUN 17 Creatinine 1.21 H Estim Creat Clear Calc 62 Estimated GFR 52 L Glucose 113 H Calcium 9.7 Total Bilirubin 0.7 AST 34 ALT 53 H Alkaline Phosphatase 169 H C-Reactive Protein 14.6 H Total Protein 8.0 Albumin 3.9 Lipase 487 H
[2024-04-22 20:47] VITALS: BP 122/65; PULSE 91; RESP 16; TEMP 36.7; O2SAT 98
[2024-04-23 00:45] VITALS: BP 120/74; PULSE 96; RESP 16; TEMP 36.5; O2SAT 97
[2024-04-23 05:45] VITALS: BP 120/74; PULSE 96; RESP 16; TEMP 36.6; O2SAT 97
[2024-04-23] MEDS: oxyCODONE/ACETAMINOPHEN (*CRX) 5-325 MG TABLET 1 TABLET PO ×2 (06:12→13:31)
[2024-04-23] MEDS: CENTRAL LINE FLUSH 10 ML IV PUSH (06:13)
[2024-04-23] MEDS: PANTOPRAZOLE 40 MG TABLET PO (09:00)
[2024-04-23] MEDS: SERTRALINE HCL 50 MG TABLET PO (09:00)
--- NOTE | 2024-04-23 10:41 | P.PNIM_ITS ---
Progress Note: A&P Assessment and Plan (1) Prolonged PTT: Code(s): R79.1 - Abnormal coagulation profile Status: Acute (2) Anxiety and depression: Code(s): F41.9 - Anxiety disorder, unspecified; F32.A - Depression, unspecified Status: Acute (3) Depression: Code(s): F32.A - Depression, unspecified Status: Acute (4) Acute pancreatitis: Qualifiers: Acute pancreatitis complication: unspecified Pancreatitis type: unspecified pancreatitis type Qualified Code(s): K85.90 - Acute pancreatitis without necrosis or infection, unspecified Code(s): K85.90 - Acute pancreatitis without necrosis or infection, unspecified Status: Acute (5) Cholelithiasis: Qualifiers: Biliary obstruction: with biliary obstruction Cholecystitis presence: without cholecystitis Cholelithiasis location: gallbladder Qualified Code(s): K80.21 - Calculus of gallbladder without cholecystitis with obstruction Code(s): K80.20 - Calculus of gallbladder without cholecystitis without obstruction Status: Chronic Plan Gallstone pancreatitis: Code(s): K85.10 - Biliary acute pancreatitis without necrosis or infection Status: Acute Assessment and Plan: Patient presents with abdominal pain and found to have lipase >40K. CTA chest/abdomen/pelvis shows acute interstitial pancreatitis with prominent nonloculated acute peripancreatic fluid collections and stranding, tiny GS versus porcelain gallbladder with mural calcification along the dependent wall of the otherwise normal GB, no evident choledocholithiasis or intra or extra hepatic biliary ductal dilation and mild dependent atelectasis in the lower lobes. No pulmonary embolism or other acute cardiopulmonary disease. MRCP showing similar findings from the CT scan and no evidence of choledocholithiasis. Patient with GS Pancreatitis. General surgery and GI consulted and appreciate their input. TG 198. Lipase trending downward at 300. TB better at 1.1 and other liver tests normalize Repeat CT A/P (04/11) showing interval progression of non loculated peripancreatic fluid and extensive stranding consistent with acute interstitial pancreatitis Received TPN, stopped. Patient is on liquid diet Pain is tolerable 04/19 Patient has improve appetite, but she cannot have enough intake by mouth. Pain is tolerable Cholelithiasis: Qualifiers: Biliary obstruction: with biliary obstruction Cholecystitis presence: without cholecystitis Cholelithiasis location: gallbladder Qualified Code(s): K80.21 - Calculus of gallbladder without cholecystitis with obstruction Code(s): K80.20 - Calculus of gallbladder without cholecystitis without obstruction Status: Chronic Assessment and Plan: As above sepsis Leukocytosis, white blood cell is trending up, patient also has tachycardia tachypnea low-grade fever Patient is afebrile, but leukocytosis trending up. UA shows pyuria cxr:a left lower lobe infiltrate and likely adjacent effusion. CT abdomen pelvis shows no abscess necrosis or hemorrhagic transformation, small amount reactive ascites in the pelvis, small left pleural effusion with partial collapse of left lower lobe Possible reaction to pancreatitis, but also has risks of intra-abdominal infection, currently patient is on TPN that places patient on risk of infection also Patient is allergic to Levaquin Sepsis likely secondary to UTI and possible pneumonia Continue vancomycin Zosyn 04/16 Patient is afebrile, no better growth from blood culture, fungal culture pending. Leukocytosis persists, continue Zosyn, discontinue vancomycin. 04/19 WBC trending down and afeb, UCX negative and BCX negative, Cr is trending up, dc zosyn now Sepsis is resolved Leukocytosis likely secondary to inflammation due to pancreatitis Transaminitis: Code(s): R74.01 - Elevation of levels of liver transaminase levels Status: Acute Assessment and Plan: As above. Elevated partial thromboplastin time (PTT): Code(s): R79.1 - Abnormal coagulation profile Status: Chronic Assessment and Plan: PTT 197, previously 159 on 06/27/2023. Patient has previously been referred to Hematology but has not follow-up with this. Her mother and maternal grandmother have some form of clotting disorder and are both She has bleeding gums but no miscarriages or early bruising. 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 Hgb 13.2 upon arrival in the ED Pelvic ultrasound was unremarkable. Could be related to her elevated PTT. HH has trended down to 8.4 today but could be related to fluids. [employer] worker consulted and appreciate their input Hypokalemia: Code(s): E87.6 - Hypokalemia Status: Acute Assessment and Plan: Repeated, potassium still low. Mag 2.2 Replace potassium Replace Phos as well. Per specialists request, I reached out to [facility] to transfer patient to [facility] for further evaluation treatment. Patient is accepted. Patient will be transferred to [facility] for further evaluation treatment Subjective Date/time seen: 04/23/24 10:41 Interval history: Patient feels better, pain is better controlled, appetite improving, still has nausea denies vomiting. Exam Narrative: GENERAL: Pleasant, in no acute distress. Well-nourished. - EYES: EOMI. Anicteric. - HENT: Moist mucous membranes. - LUNGS: Clear to auscultation bilateral ly, no wheezing, rhonchi, or rales. - CARDIOVASCULAR: Regular rate and rhyth m. No murmur. No JVD. - ABDOMEN: Soft, left mid abdomen tender and non-distended. No palpable masses. - EXTREMITIES: No edema. Peripheral puls es 2+. Non-tender. - NEUROLOGIC: No focal neurological defi cits. CN II-XII grossly intact. - PSYCHIATRIC: Awake, Alert and oriented x 3. Appropriate mood and affect. - SKIN: No rashes or lesions. Warm. - LYMPH: No cervical lymphadenopathy. Objective Data Vital Signs Vital Signs: Vital Signs - 24 hr 04/22/24 12:00 04/22/24 16:00 04/22/24 20:00 Temperature 98.5 F 98.1 F Pulse Rate 107 H 89 Respiratory Rate 18 18 Blood Pressure 132/76 122/78 Pulse Oximetry 98 98 Oxygen Delivery Room Air 04/22/24 20:47 04/23/24 00:45 04/23/24 05:45 Temperature 98.0 F 97.7 F 97.8 F Pulse Rate 91 96 96 Respiratory Rate 16 16 16 Blood Pressure 122/65 120/74 120/74 Pulse Oximetry 98 97 97 Oxygen Delivery Intake/Output Intake/Output: Intake & Output 04/20/24 04/21/24 04/22/24 04/23/24 23:59 23:59 23:59 23:59 Intake Total 2780 1570 1000 760 Balance 2780 1570 1000 760 Meds/Results Medications: Active Medications Generic Name Dose Route Start Last Admin Trade Name Freq PRN Reason Stop Dose Admin Acetaminophen 500 mg 04/15/24 11:18 Acetaminophen 500 Mg Tablet PO Q6H PRN Pain Rated 1-3 Ibuprofen 800 mg in 200 mls @ 400 mls/hr 04/12/24 10:32 04/13/24 05:46 Caldolor 800 Mg/200 Ml IVPB Infused Q6H PRN Infusion Mild Pain (1-3) Ibuprofen 600 mg 04/15/24 08:23 04/19/24 08:33 Ibuprofen 600 Mg Tablet PO 600 mg Q6H PRN Administration Pain Rated 1-3 Lidocaine 1 patch 04/08/24 19:02 04/11/24 08:47 Lidocaine 5% Patch TRANSDERM 1 patch Q24H PRN Administration back pain Morphine Sulfate 2 mg 04/15/24 11:18 Morphine Sulfate (*Crx) 2 Mg/Ml Inj IV PUSH Q2H PRN Breakthrough Pain Rated 4-6 or NPO Morphine Sulfate 4 mg 04/15/24 11:18 Morphine Sulfate (*Crx) 4 Mg/Ml Inj IV PUSH Q2H PRN Breakthrough Pain Rated 7-10 or NPO Naloxone HCl 0.1 mg 04/15/24 11:18 Naloxone Hcl 0.4 Mg/Ml Vial IV PUSH Q2M PRN Opiate Reversal Ondansetron HCl 4 mg 04/08/24 13:45 04/19/24 17:03 Ondansetron Inj 4 Mg/2 Ml Vial IV PUSH 4 mg Q6H PRN Administration Nausea And Vomiting Oxycodone/Acetaminophen 1 tablet 04/15/24 11:18 04/23/24 06:12 Oxycodone/Acetaminophen (*Crx) 5-325 Mg Tablet PO 1 tablet Q4H PRN Administration Pain Rated 4-6 Oxycodone/Acetaminophen 1 tab 04/15/24 11:18 04/19/24 05:04 Oxycodone/Acetaminophen (*Crx) 10-325 Mg Tablet PO 1 tab Q6H PRN Administration Pain Rated 7-10 Pantoprazole Sodium 40 mg 04/16/24 09:00 04/23/24 09:00 Pantoprazole 40 Mg Tablet PO 40 mg QAM JULIANO Administration Sertraline HCl 50 mg 04/09/24 09:00 04/23/24 09:00 Sertraline Hcl 50 Mg Tablet PO 50 mg DAILY JULIANO Administration Sodium Chloride 20 ml 04/11/24 14:26 04/16/24 04:34 Central Line Flush IV PUSH 20 ml PRN PRN Administration after blood draws Sodium Chloride 10 ml 04/11/24 14:26 04/16/24 00:29 Central Line Flush IV PUSH 10 ml PRN PRN Administration with TPN bag changes Sodium Chloride 10 ml 04/11/24 22:00 04/23/24 06:13 Central Line Flush IV PUSH 10 ml Q8HR JULIANO Administration Radiology Results: ITS Impressions MRCP 04/09/24 12:03 IMPRESSION: 1. Multiple tiny gallstones in the dependent aspect of the normal gallbladder. 2. Diffuse acute interstitial pancreatitis with prominent nonloculated peripancreatic fluid tracking into the intra and retroperitoneal soft tissue tissues. 3. No intra or extrahepatic biliary ductal dilation or evident choledocholithiasis. 4. Increased signal in the dependent lower lobes which could represent atelectasis or pneumonia. ADDENDUM: 04/09/24 1301 CORRECTION: Incorrect contrast agent is noted in the technique section. The study was performed without and with 16 mL ProHance intravenous contrast. Pelvis Ultrasound 04/09/24 13:37 IMPRESSION: 1. Unremarkable pelvic ultrasound. Chest/Abdomen/Pelvis CTA 04/11/24 12:59 IMPRESSION: 1. No evident pulmonary embolism. Sensitivity mildly decreased in the segmental and more prominently in the subsegmental pulmonary arteries due to is suboptimal opacification of the pulmonary arteries as well as small amount of respiratory and streak artifact. 2. Small left pleural effusion with partial collapse of the left lower lobe and additional atelectasis in the right lower lobe. 3. Interval progression of nonloculated peripancreatic fluid and extensive stranding consistent with acute interstitial pancreatitis. 4. Small amount of ascites in the abdomen and pelvis with increased density of the fluid in the dependent cul-de-sac suggesting complex/exudative ascites which could be seen with small amount of hemoperitoneum or peritonitis. Chest X-Ray 04/14/24 08:29 IMPRESSION: Mild pulmonary vascular congestion with a left lower lobe infiltrate and likely adjacent effusion. Abdomen/Pelvis CT 04/19/24 09:37 IMPRESSION: 1. Pancreatitis with multiple collections seen around the pancreas extending to the area of the left adrenal gland, left paracolic gutter and in the mesentery 2. Dilated bowel loops in the pelvis which may indicate ileus. Follow-up advised. 3. Free fluid in the pelvis. 4. Slight splenomegaly. Slight hepatomegaly.
--- NOTE | 2024-04-23 11:21 | P.TS_ITS ---
Transfer Discharge Sum: Prov Provider Date of admission: 04/08/24 13:11 Primary care physician: UNKNOWN,DOCTOR Admitting clinician: Jarvis Juarez MD Consults: 04/08/24 Consult to Physician Routine Comment: Consulting Provider: Tato Warner Reason for consultation: Cholelithiasis Has provider been notified: Yes Consult to Physician Routine Comment: Spoke to Exchange 16:48pm ([facility]) Consulting Provider: Rito Muro reception centre manager/MD group to consult: Dr. Muro Reason for consultation: persistent vaginal bleeding, high APTT Has provider been notified: Yes Consult to Physician Routine Comment: Spoke to Michelle @ office 12:15pm ([facility]) Consulting Provider: Mark Deluca reception centre manager/MD group to consult: Hematology, Dr. Deluca Reason for consultation: isolated elevated APTT, pancreatitis, vag bleeding Has provider been notified: Yes 04/08/24 11:42 Consult to Physician Routine Comment: Consulting Provider: Jimmy Blevins Reason for consultation: Pancreatitis, transaminitis, hyperbilirubinemia Has provider been notified: Yes 04/11/24 11:48 Consult to Dietitian Routine Reason for Consult:: TPN 04/20/24 Consult to Physician Routine Comment: Left VM for office04/20 1192 ([facility]) Consulting Provider: Mark Deluca reception centre manager/MD group to consult: Hematology, Dr. Deluca Reason for consultation: f/u on testing for elevated APTT Has provider been notified: Yes DS: Admitting Diagnosis Discharge Date 04/23 Admitting Diagnosis (1) Prolonged PTT: Code(s): R79.1 - Abnormal coagulation profile Status: Acute (2) Anxiety and depression: Code(s): F41.9 - Anxiety disorder, unspecified; F32.A - Depression, unspecified Status: Acute (3) Depression: Code(s): F32.A - Depression, unspecified Status: Acute (4) Acute pancreatitis: Qualifiers: Acute pancreatitis complication: unspecified Pancreatitis type: unspecified pancreatitis type Qualified Code(s): K85.90 - Acute pancreatitis without necrosis or infection, unspecified Code(s): K85.90 - Acute pancreatitis without necrosis or infection, unspecified Status: Acute (5) Cholelithiasis: Qualifiers: Biliary obstruction: with biliary obstruction Cholecystitis presence: without cholecystitis Cholelithiasis location: gallbladder Qualified Code(s): K80.21 - Calculus of gallbladder without cholecystitis with obstruction Code(s): K80.20 - Calculus of gallbladder without cholecystitis without obstruction Status: Chronic DS: Discharge Diagnosis Discharge Diagnosis (1) Prolonged PTT: Code(s): R79.1 - Abnormal coagulation profile Status: Acute (2) Anxiety and depression: Code(s): F41.9 - Anxiety disorder, unspecified; F32.A - Depression, unspecified Status: Acute (3) Depression: Code(s): F32.A - Depression, unspecified Status: Acute (4) Acute pancreatitis: Qualifiers: Acute pancreatitis complication: unspecified Pancreatitis type: unspecified pancreatitis type Qualified Code(s): K85.90 - Acute pancreatitis without necrosis or infection, unspecified Code(s): K85.90 - Acute pancreatitis without necrosis or infection, unspecified Status: Acute (5) Cholelithiasis: Qualifiers: Biliary obstruction: with biliary obstruction Cholecystitis presence: without cholecystitis Cholelithiasis location: gallbladder Qualified Code(s): K80.21 - Calculus of gallbladder without cholecystitis with obstruction Code(s): K80.20 - Calculus of gallbladder without cholecystitis without obstruction Status: Chronic Transfer Discharge Sum: Med Medications Active and Home Medications: Home Medications medroxyprogesterone 150 mg/mL intramuscular syringe (Depo-Provera) 150 mg IM [id number] #1 mL 03/21/24 [Rx Confirmed 04/08/24] sertraline 50 mg tablet 50 mg PO DAILY #30 tabs 03/21/24 [Rx Confirmed 04/08/24] lidocaine 5 % topical patch 1 patch transdermal Q24H PRN back pain 04/08/24 [History Confirmed 04/08/24] naproxen 500 mg tablet 500 mg PO BID PRN pain 04/08/24 [History Confirmed 04/08/24] Active Medications Acetaminophen (Acetaminophen 500 Mg Tablet) 500 mg PO Q6H PRN PRN Reason: Pain Rated 1-3 Ibuprofen (Caldolor 800 Mg/200 Ml) 800 mg in 200 mls @ 400 mls/hr IVPB Q6H PRN PRN Reason: Mild Pain (1-3) Last Infusion: 04/13/24 05:46 Dose: Infused Ibuprofen (Ibuprofen 600 Mg Tablet) 600 mg PO Q6H PRN PRN Reason: Pain Rated 1-3 Last Admin: 04/19/24 08:33 Dose: 600 mg Lidocaine (Lidocaine 5% Patch) 1 patch TRANSDERM Q24H PRN PRN Reason: back pain Last Admin: 04/11/24 08:47 Dose: 1 patch Morphine Sulfate (Morphine Sulfate (*Crx) 2 Mg/Ml Inj) 2 mg IV PUSH Q2H PRN PRN Reason: Breakthrough Pain Rated 4-6 or NPO Morphine Sulfate (Morphine Sulfate (*Crx) 4 Mg/Ml Inj) 4 mg IV PUSH Q2H PRN PRN Reason: Breakthrough Pain Rated 7-10 or NPO Naloxone HCl (Naloxone Hcl 0.4 Mg/Ml Vial) 0.1 mg IV PUSH Q2M PRN PRN Reason: Opiate Reversal Ondansetron HCl (Ondansetron Inj 4 Mg/2 Ml Vial) 4 mg IV PUSH Q6H PRN PRN Reason: Nausea And Vomiting Last Admin: 04/19/24 17:03 Dose: 4 mg Oxycodone/Acetaminophen (Oxycodone/Acetaminophen (*Crx) 5-325 Mg Tablet) 1 tablet PO Q4H PRN PRN Reason: Pain Rated 4-6 Last Admin: 04/23/24 06:12 Dose: 1 tablet Oxycodone/Acetaminophen (Oxycodone/Acetaminophen (*Crx) 10-325 Mg Tablet) 1 tab PO Q6H PRN PRN Reason: Pain Rated 7-10 Last Admin: 04/19/24 05:04 Dose: 1 tab Pantoprazole Sodium (Pantoprazole 40 Mg Tablet) 40 mg PO QAM [facility] Last Admin: 04/23/24 09:00 Dose: 40 mg Sertraline HCl (Sertraline Hcl 50 Mg Tablet) 50 mg PO DAILY [facility] Last Admin: 04/23/24 09:00 Dose: 50 mg Sodium Chloride (Central Line Flush) 20 ml IV PUSH PRN PRN PRN Reason: after blood draws Last Admin: 04/16/24 04:34 Dose: 20 ml Sodium Chloride (Central Line Flush) 10 ml IV PUSH PRN PRN PRN Reason: with TPN bag changes Last Admin: 04/16/24 00:29 Dose: 10 ml Sodium Chloride (Central Line Flush) 10 ml IV PUSH Q8HR [facility] Last Admin: 04/23/24 06:13 Dose: 10 ml Transfer Discharge Sum: Hosp Hospital Course Hospital course: Per H&P : 29 y/o F presents here with chest tightness, back pain, and epigastric pain with PMH of anxiety and depression. The patient presents here from home for further evaluation of chest pain, back pain, and epigastric pain. She reports this pain has been intermittent for the past 8 days. Initially sought care at [facility] (04/06) and she was given pain medications and released without labs/imaging. She describes the pain as a band across her chest upper abdomen and mid back, sharp, squeezing, constant, aggravated by movement/deep inspiration, and no alleviating factors. The symptoms are also accompanied by nausea, vomiting, diarrhea, body aches, diaphoresis/cold sweats. She denies accompanying fever. She reports no alcohol use. Patient also reported eyelid twitching a persistent DUNCAN since delivery on 03/21. She reports the eyelid twitching has resolved but continues to have a headache which is chronic for her. The patient was also noted to have an elevated PTT in June of 2023, she was referred to Hematology but has not been able to follow-up. Reports she has still been bleeding daily since deliver 03/05/24, estimates she could change her medium pad once per hour. Patient reports that her mother and maternal grandma were on blood thinners from an early age, unsure if there was a genetic component or clotting disorder. Initial VS at presentation: 97.8? F, HR 88, RR 21, 125/73, and 100% on RA. ED workup showed: WBC 9.4, no anemia, PTT 196.9, creatinine 0.64 and GFR >60, glucose 167, total bilirubin 5.5, AST 196, ALT 412, alk-phos 234, initial troponin negative, lipase greater than 40,000. CXR showed no focal infiltrate or effusion. CTA of the chest/abdomen/pelvis showed acute interstitial pancreatitis with prominent non loculated acute peripancreatic fluid collections and stranding, tiny gallstones versus porcelain gallbladder with mural calcification, no evident choledocholithiasis or ductal dilation, mild dependent atelectasis in the lower lobes, no PE or acute cardiopulmonary disease. The following med issues have been addressed during hospitalization Gallstone pancreatitis: Code(s): K85.10 - Biliary acute pancreatitis without necrosis or infection Status: Acute Assessment and Plan: Patient presents with abdominal pain and found to have lipase >40K. CTA chest/abdomen/pelvis shows acute interstitial pancreatitis with prominent nonloculated acute peripancreatic fluid collections and stranding, tiny GS versus porcelain gallbladder with mural calcification along the dependent wall of the otherwise normal GB, no evident choledocholithiasis or intra or extra hepatic biliary ductal dilation and mild dependent atelectasis in the lower lobes. No pulmonary embolism or other acute cardiopulmonary disease. MRCP showing similar findings from the CT scan and no evidence of choledocholithiasis. Patient with GS Pancreatitis. General surgery and GI consulted and appreciate their input. TG 198. Lipase trending downward at 300. TB better at 1.1 and other liver tests normalize Repeat CT A/P (04/11) showing interval progression of non loculated peripancreatic fluid and extensive stranding consistent with acute interstitial pancreatitis Received TPN, stopped. Patient is on liquid diet Pain is tolerable 04/19 Patient has improve appetite, but she cannot have enough intake by mouth. Pain is tolerable Cholelithiasis: Qualifiers: Biliary obstruction: with biliary obstruction Cholecystitis presence: without cholecystitis Cholelithiasis location: gallbladder Qualified Code(s): K80.21 - Calculus of gallbladder without cholecystitis with obstruction Code(s): K80.20 - Calculus of gallbladder without cholecystitis without obstruction Status: Chronic Assessment and Plan: As above sepsis Leukocytosis, white blood cell is trending up, patient also has tachycardia tachypnea low-grade fever Patient is afebrile, but leukocytosis trending up. UA shows pyuria cxr:a left lower lobe infiltrate and likely adjacent effusion. CT abdomen pelvis shows no abscess necrosis or hemorrhagic transformation, small amount reactive ascites in the pelvis, small left pleural effusion with partial collapse of left lower lobe Possible reaction to pancreatitis, but also has risks of intra-abdominal infection, currently patient is on TPN that places patient on risk of infection also Patient is allergic to Levaquin Sepsis likely secondary to UTI and possible pneumonia Continue vancomycin Zosyn 04/16 Patient is afebrile, no better growth from blood culture, fungal culture pending. Leukocytosis persists, continue Zosyn, discontinue vancomycin. 04/19 WBC trending down and afeb, UCX negative and BCX negative, Cr is trending up, dc zosyn now Sepsis is resolved Leukocytosis likely secondary to inflammation due to pancreatitis Transaminitis: Code(s): R74.01 - Elevation of levels of liver transaminase levels Status: Acute Assessment and Plan: As above. Elevated partial thromboplastin time (PTT): Code(s): R79.1 - Abnormal coagulation profile Status: Chronic Assessment and Plan: PTT 197, previously 159 on 06/27/2023. Patient has previously been referred to Hematology but has not follow-up with this. Her mother and maternal grandmother have some form of clotting disorder and are both She has bleeding gums but no miscarriages or early bruising. 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 Hgb 13.2 upon arrival in the ED Pelvic ultrasound was unremarkable. Could be related to her elevated PTT. HH has trended down to 8.4 today but could be related to fluids. bread supervisor consulted and appreciate their input Hypokalemia: Code(s): E87.6 - Hypokalemia Status: Acute Assessment and Plan: Repeated, potassium still low. Mag 2.2 Replace potassium Replace Phos as well. Per specialists request, I reached out to [facility] to transfer patient to [facility] for further evaluation treatment. Patient is accepted. Patient will be transferred to [facility] for further evaluation treatment Time Spent with Patient Time attestation: Total time spent providing and/or coordinating transfer services: Exam Narrative: GENERAL: Pleasant, in no acute distress. Well-nourished. - EYES: EOMI. Anicteric. - HENT: Moist mucous membranes. - LUNGS: Clear to auscultation bilateral ly, no wheezing, rhonchi, or rales. - CARDIOVASCULAR: Regular rate and rhyth m. No murmur. No JVD. - ABDOMEN: Soft, left mid abdomen tender and non-distended. No palpable masses. - EXTREMITIES: No edema. Peripheral puls es 2+. Non-tender. - NEUROLOGIC: No focal neurological defi cits. CN II-XII grossly intact. - PSYCHIATRIC: Awake, Alert and oriented x 3. Appropriate mood and affect. - SKIN: No rashes or lesions. Warm. - LYMPH: No cervical lymphadenopathy.
--- NOTE | 2024-04-23 12:18 | P.PNGI_ITS ---
Progress Note: A&P Assessment and Plan (1) Gallstone pancreatitis: Code(s): K85.10 - Biliary acute pancreatitis without necrosis or infection Status: Acute Assessment and Plan: s/p TPN, now eating about 30% similar pain she is going to [facility] today (2) Upper abdominal pain: Code(s): R10.10 - Upper abdominal pain, unspecified Status: Acute Assessment and Plan: pain meds prn now (3) Transaminitis: Code(s): R74.01 - Elevation of levels of liver transaminase levels Status: Acute Assessment and Plan: from pancreatitis no need of ercp (4) Leukocytosis: Qualifiers: Leukocytosis type: bandemia Qualified Code(s): D72.825 - Bandemia Code(s): D72.829 - Elevated white blood cell count, unspecified Status: Acute Assessment and Plan: most likely from severe pancreatitis (5) Nausea: Code(s): R11.0 - Nausea Status: Acute Assessment and Plan: on meds Subjective Date/time seen: 04/23/24 12:18 Interval history: similar pain, eating about 30% finally she was accepted to [facility] today Review of Systems Review of Systems: All systems reviewed & are unremarkable except as noted in HPI and below Exam Const: General: comfortable, no acute distress, alert and awake [place] ation/consciousness: patient oriented x3 HENMT: Face/Nose/Sinus: Normal nares present Eyes: General: appearance normal, both eyes and all related structures Neck: Neck: supple Resp: Effort & Inspection: normal respiratory effort Cardio: Rate: regular rate GI: Inspection: normal to inspection and non-distended GI Palp: Yes Soft to palpation, Yes Tenderness to palpation present (GI) (Left upper quadrant), No Guarding due to palpation present (GI) and No Rebound tenderness present Neuro: General: patient oriented x3 and no focal motor deficits Extrem: General: no calf tenderness and no edema Psych: Affect: normal affect Insight: Good insight present (Psych) Judgement: Good judgement present (Psych) Objective Data Vital Signs Vital Signs: Vital Signs - 24 hr 04/22/24 16:00 04/22/24 20:00 04/22/24 20:47 Temperature 98.1 F 98.0 F Pulse Rate 89 91 Respiratory Rate 18 16 Blood Pressure 122/78 122/65 Pulse Oximetry 98 98 Oxygen Delivery Room Air 04/23/24 00:45 04/23/24 05:45 Temperature 97.7 F 97.8 F Pulse Rate 96 96 Respiratory Rate 16 16 Blood Pressure 120/74 120/74 Pulse Oximetry 97 97 Oxygen Delivery Intake/Output Intake/Output: Intake & Output 04/20/24 04/21/24 04/22/24 04/23/24 23:59 23:59 23:59 23:59 Intake Total 2780 1570 1000 760 Balance 2780 1570 1000 760 Meds/Results Medications: Active Medications Generic Name Dose Route Start Last Admin Trade Name Freq PRN Reason Stop Dose Admin Acetaminophen 500 mg 04/15/24 11:18 Acetaminophen 500 Mg Tablet PO Q6H PRN Pain Rated 1-3 Ibuprofen 800 mg in 200 mls @ 400 mls/hr 04/12/24 10:32 04/13/24 05:46 Caldolor 800 Mg/200 Ml IVPB Infused Q6H PRN Infusion Mild Pain (1-3) Ibuprofen 600 mg 04/15/24 08:23 04/19/24 08:33 Ibuprofen 600 Mg Tablet PO 600 mg Q6H PRN Administration Pain Rated 1-3 Lidocaine 1 patch 04/08/24 19:02 04/11/24 08:47 Lidocaine 5% Patch TRANSDERM 1 patch Q24H PRN Administration back pain Morphine Sulfate 2 mg 04/15/24 11:18 Morphine Sulfate (*Crx) 2 Mg/Ml Inj IV PUSH Q2H PRN Breakthrough Pain Rated 4-6 or NPO Morphine Sulfate 4 mg 04/15/24 11:18 Morphine Sulfate (*Crx) 4 Mg/Ml Inj IV PUSH Q2H PRN Breakthrough Pain Rated 7-10 or NPO Naloxone HCl 0.1 mg 04/15/24 11:18 Naloxone Hcl 0.4 Mg/Ml Vial IV PUSH Q2M PRN Opiate Reversal Ondansetron HCl 4 mg 04/08/24 13:45 04/19/24 17:03 Ondansetron Inj 4 Mg/2 Ml Vial IV PUSH 4 mg Q6H PRN Administration Nausea And Vomiting Oxycodone/Acetaminophen 1 tablet 04/15/24 11:18 04/23/24 06:12 Oxycodone/Acetaminophen (*Crx) 5-325 Mg Tablet PO 1 tablet Q4H PRN Administration Pain Rated 4-6 Oxycodone/Acetaminophen 1 tab 04/15/24 11:18 04/19/24 05:04 Oxycodone/Acetaminophen (*Crx) 10-325 Mg Tablet PO 1 tab Q6H PRN Administration Pain Rated 7-10 Pantoprazole Sodium 40 mg 04/16/24 09:00 04/23/24 09:00 Pantoprazole 40 Mg Tablet PO 40 mg QAM JULIANO Administration Sertraline HCl 50 mg 04/09/24 09:00 04/23/24 09:00 Sertraline Hcl 50 Mg Tablet PO 50 mg DAILY JULIANO Administration Sodium Chloride 20 ml 04/11/24 14:26 04/16/24 04:34 Central Line Flush IV PUSH 20 ml PRN PRN Administration after blood draws Sodium Chloride 10 ml 04/11/24 14:26 04/16/24 00:29 Central Line Flush IV PUSH 10 ml PRN PRN Administration with TPN bag changes Sodium Chloride 10 ml 04/11/24 22:00 04/23/24 06:13 Central Line Flush IV PUSH 10 ml Q8HR JULIANO Administration Radiology Results: ITS Impressions MRCP 04/09/24 12:03 IMPRESSION: 1. Multiple tiny gallstones in the dependent aspect of the normal gallbladder. 2. Diffuse acute interstitial pancreatitis with prominent nonloculated peripancreatic fluid tracking into the intra and retroperitoneal soft tissue tissues. 3. No intra or extrahepatic biliary ductal dilation or evident choledocholithias is. 4. Increased signal in the dependent lower lobes which could represent atelectasis or pneumonia. ADDENDUM: 04/09/24 1301 CORRECTION: Incorrect contrast agent is noted in the technique section. The study was performed without and with 16 mL ProHance intravenous contrast. Pelvis Ultrasound 04/09/24 13:37 IMPRESSION: 1. Unremarkable pelvic ultrasound. Chest/Abdomen/Pelvis CTA 04/11/24 12:59 IMPRESSION: 1. No evident pulmonary embolism. Sensitivity mildly decreased in the segmental and more prominently in the subsegmental pulmonary arteries due to is suboptimal opacification of the pulmonary arteries as well as small amount of respiratory and streak artifact. 2. Small left pleural effusion with partial collapse of the left lower lobe and additional atelectasis in the right lower lobe. 3. Interval progression of nonloculated peripancreatic fluid and extensive stranding consistent with acute interstitial pancreatitis. 4. Small amount of ascites in the abdomen and pelvis with increased density of the fluid in the dependent cul-de-sac suggesting complex/exudative ascites which could be seen with small amount of hemoperitoneum or peritonitis. Chest X-Ray 04/14/24 08:29 IMPRESSION: Mild pulmonary vascular congestion with a left lower lobe infiltrate and likely adjacent effusion. Abdomen/Pelvis CT 04/19/24 09:37 IMPRESSION: 1. Pancreatitis with multiple collections seen around the pancreas extending to the area of the left adrenal gland, left paracolic gutter and in the mesentery 2. Dilated bowel loops in the pelvis which may indicate ileus. Follow-up advised. 3. Free fluid in the pelvis. 4. Slight splenomegaly. Slight hepatomegaly.
--- NOTE | 2024-04-23 15:30 | PC.NURSE ---
On 04/23/24, the TECHNICAL SUPPORT AGENT, Kusum Groves, provided care and completed is[employer]! documentation on this patient. I have reviewed the TECHNICAL SUPPORT AGENT's documentation and agree with the findings.
== END 2024-04-23 14:38 | disposition other institution (70) | DRG 776 ==
LOC: ANHED 12:02 → ANH2MED 12:20
PROVIDERS: Emergency Medicine; Internal Medicine; Internal Medicine Hematology & Oncology; Nurse Practitioner Family; Student in an Organized Health Care Education/Training Program; Surgery; Admitting Provider Family Medicine; Emergency Provider Physician Assistant; Visit Provider Hospitalist
DX: O99.63 Diseases of the digestive system complicating the puerperium (principal); K85.10 Biliary acute pancreatitis without necrosis or infection; K80.20 Calculus of gallbladder without cholecystitis without obstruction; O90.89 Other complications of the puerperium, not elsewhere classified; O85 Puerperal sepsis; O86.20 Urinary tract infection following delivery, unspecified; E87.6 Hypokalemia; L50.0 Allergic urticaria; T36.8X5A Adverse effect of other systemic antibiotics, initial encounter; R00.0 Tachycardia, unspecified; R79.1 Abnormal coagulation profile; F41.9 Anxiety disorder, unspecified; F32.A Depression, unspecified
CPT/HCPCS: 36415; 36569; 71045; 71275; 74177; 74183; 76376; 76856; 80048; 80053; 80061; 80202; 81001; 82607; 82728; 82746; 82948; 83036; 83540; 83550; 83690; 83735; 84100; 84132; 84443; 84466; 84478; 84484; 85025; 85240; 85246; 85380; 85610; 85613; 85730; 86038; 86039; 86140; 86147; 87040; 87086; 87103; 93005; 96361; 96365; 96375; 99285; A9270; A9579; C1751; G0378; J1171; J1650; J1741; J1756; J1815; J1956; J2003; J2270; J2405; J2470; J2543; J3370; J3475; J3480; J7030; J7040; J7050; J7060; Q9967

== ENCOUNTER 2024-05-10 10:35 | Outpatient (CLI) | payer OTHER, MEDICAID, SELFPAY ==
--- OUTSIDE RECORDS SUMMARY | 2024-05-10 11:47 | XMS_ITS | Clinical Summary ---
[facility] Address [address] [place] [address] Care Team Providers Care Esthetician/Owner Name Role Phone Unavailable Primary Care Provider Unavailabl e Encounters Date Type Department Care Team Description 04/16/2024 External Device Data [facility]STRACTION Provider, Abstract 04/16/2024 External Device Data [facility] Provider, Abstract 04/13/2024 External Device Data [facility] Provider, Abstract 03/30/2024 External Device Data [facility] ABSTRACTION Provider, [...] of 3 - 19+ 3-dose series) 2013 HPV/Cotest (21-29) 2015 PAP SMEAR 2015 INFLUENZA VACCINE (#1) 2023 CERVICAL CANCER SCREENING 01/29/2024 HPV/Cotest (30-65) 01/29/2024 PAP SMEAR 01/29/2024 Preventative Visit- Commercial 02/10/2024 HPV VACCINES Aged Out No longer eligi ble based on patient's age to complete this topic Insurance MEDICAID [facility] [id number]
--- OUTSIDE RECORDS SUMMARY | 2024-05-10 11:47 | XMS_ITS | CONTINUITY OF CARE DOCUMENT ---
Author Name marck sonuchantale Address Unknown Organization [facility] Address [address] [place] [address] Phone [phone] Care Team Providers Care Airflight Attendants Supervisor Name Role Phone Anival DOMINGUEZ, Radha Unavailable [phone] BORIS MCDONALD MD Unavailable PROBLEMS Condition Status Date Provider Notes Obesity active Zack Ahmedzai Anemia active Zack Ahmedzai Hyperlipidemia active Zack Astorga Family hx of CAD active Radha Florian MD Chest pain--calcium score ze ro, 10/2021 active Radha Florian MD Dyspnea on exertion-- Echo E F 66%, mild TR, PASP 31 mmhg, 10/2021 active Radha Florian MD DIZZINESS active Radha Florian MD Fast pulse completed - Radha Florian MD Snoring completed - Radah Florian MD VICENTA--mild, attempting weight loss active Radha Florian MD ENCOUNTERS Date Type Provider Location Encounter Diag nosis - In-person encounter Office Visit Radha Florian MD [facility] - In-person encounter Office Visit Radha Florian MD [facility] - In-person encounter Office Visit Radha Florian MD [facility] - In-person encounter Office Visit Radha Florian MD [facility] Chest pain--calcium score zero, yspnea on exertion-- Echo EF 66%, mild TR, PASP 31 mmhg, 10/2021Fast pulseSnoringOSA--mi ld, attempting weight loss - In-person encounter Office Visit Radha Florian MD [facility] Family hx of CADChest pain--calcium score zero, yspnea on exertion-- Echo EF 66%, mild TR, PASP 31 mmhg, IZZINESS VITAL SIGNS Date Observation Value Provider Body Mass Index (Ratio) 29.93 kg/m2 John Florian MD blood pressure, cuff size regular rret blood pressure, diastolic 74 mm[Hg] Ja rret blood pressure, systolic 112 mm[Hg] Jar ret pulse rate 85 /min [facility] oxygen saturation, oximetry 99 % [place] respiratory rate E&M 14 /min [place] weight E&M 169 [lb_av] [facility] y height E&M 63 [in_i] [facility] y Body Mass Index (Ratio) 31.00 kg/m2 John Florian MD blood pressure, diastolic 71 mm[Hg] Faith nkLogic blood pressure, systolic 101 mm[Hg] Georgette kLogic blood pressure, cuff size regular Ja rret blood pressure, diastolic 71 mm[Hg] Ja rret blood pressure, systolic 101 mm[Hg] Jar ret pulse rate 93 /min [place] y oxygen saturation, oximetry 98 % [place] respiratory rate E&M 12 /min [facility] weight E&M 175 [lb_av] [place] y [...] sertraline 50 mg tablet active Sol Ventimiglia 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 omega 2-twa-zml-fish oil 1,000 mg (120 mg-180 mg) capsule completed Take 1 capsule by mouth once a day - 9 Sol Ventimiglia [employer] 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 SOCIAL HISTORY Date Observation Value Provider drug use no Zack Astorga alcohol use no Zack Astorga smoking status Never smoker Zack Astorga drug use no Sol Ventimig kaylin 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 alcohol use no Sol Ventimig kaylin [employer] 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 smoking status Never smoker Sol Ventim iglia [employer] 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 social history reviewed E&M revi ewed - [...] Policy type / Coverage type Vanessa red libertarian ID [employer] [id number] AD[employer] DIRECTIVES Name Date DISCUSSED - NO DECISION MADE TREATMENT PLAN Date Name Performer [id number],S, Radha Florian MD [id number],S, Radha Florian MD [id number],S, Radha Florian MD [id number],C,LDL 164 Jayde Florian MD [id number],S, Sol Venti miglia [facility] [id number],B,H as lost 18lbs since last visit. Will renew phentermine Sol Ventimiglia [facility] [id number],S,update lipid panel Sol Ventimiglia [facility] [id number],C,will update l abs Sol Ventimiglia [facility] [id number],S,H as noted more often unclear if related to iron deficiency or medication. We will update labs. We will also have her cut her zoloft dose back. She was encouraged to remain well hydrated. EKG NSR today. Will f/u in one month or sooner if needed. Sol Ventimiglia [facility] [id number],S, Zack Ahmedza i [id number],S, Zack Ahmedza i [id number],S, Zack Ahmedza i [id number],S, Zack Ahmedza i [id number],W, Radha Florian MD [id number],S, Radha Florian MD [id number],W, Radha Florian MD [id number],S, Radha Florian MD Cardiology Zack Astorga Cardiology Zack Ahmedzai Cardiology Zack Ahmedzai Cardiology Zack Ahmedzai Cardiology Zack Ahmedzai Telehealth Radha Florian MD Telehealth Radha Florian MD Telehealth Radha Florian MD Telehealth:LDL 164 Radha Florian MD Cardiology Sol Ventimigl ia 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 Cardiology:Has lost 18lbs since last visit. Will renew phentermine Sol Ventimiglia [employer] 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 Cardiology:update lipid panel Am belkis Ventimiglia [employer]ER 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 Cardiology:will update labs Martir da Ventimiglia [employer]ER 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 Cardiology:Has noted more often unclear if related to iron deficiency or medication. We will update labs. We will also have her cut her zoloft dose back. She was encouraged to remain well hydrated. EKG NSR today. Will f/u in one month or sooner if needed. Sol Ventimiglia [employer] 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 Cardiology Zack Ahmedzai Cardiology Zack Ahmedzai Cardiology [...] MD completed CT- Coronary CA score Radha lForian MD completed EKG Radha Florian MD completed
== END 2024-05-10 10:36 | disposition home or self-care (01) ==
LOC: ANHLAB 10:38
PROVIDERS: Visit Provider Student in an Organized Health Care Education/Training Program
DX: R30.0 Dysuria (principal)
CPT/HCPCS: 87086; 87186

== ENCOUNTER 2024-07-16 22:42 | Emergency (ER) | payer OTHER, MEDICAID, SELFPAY ==
--- NOTE | ~2024-07-16 | CT_ITS ---
CT of the Abdomen and Pelvis: Indication: Pancreatitis, gallstones Technique: 2.5 mm axial scans were obtained through the abdomen and pelvis following intravenous adm inistration of 100 cc of Omnipaque 350. Dose reduction technique was used on this scan by utilizing a utomated exposure control and iterative reconstruction technique. The dose-length product (DLP) was 4 87.06 mGy-cm. Findings: Scans through the lung bases are unremarkable. The liver, spleen, gallbladder, adrenals and kidneys are within normal limits. There is extensive per ipancreatic fluid and inflammatory change, compatible with acute pancreatitis. No definite pancreatic necrosis or pseudocyst. No evidence of aortic aneurysm. No lymphadenopathy. No bowel obstruction or bowel wall thickening. There is no evidence to suggest acute appendicitis. Images through the pelvis were performed. Urinary bladder unremarkable. No pelvic mass seen. Impression: Acute pancreatitis, as detailed above. Reviewed, dictated and finalized at [facility]. Impression: Acute pancreatitis, as detailed above.
[2024-07-16 22:44] VITALS: BP 128/89; PULSE 98; RESP 20; TEMP 36.3; O2SAT 99
--- OUTSIDE RECORDS SUMMARY | 2024-07-16 23:06 | XMS_ITS | Data Portability ---
Author Organization [facility] Address [address] [place] [address] Assessment No assessment recorded. Plan of Treatment Reminders Order Date Submit Date Provider Last Modified By Organization Details Last Modified Time Details Appointments None recorded . Lab TSH + free T4, serum 2021 BOSWELL JONATHAN, [address] [place] [address], [facility] [address], [place], [address], 10:12:56 vitamin D, 25-hydro xy, total, serum 2021 [facility] LABBER[facility], [address] [place] [address], [facility] [address], [place], [address], 10:13:00 vitamin B12 + folate, serum or blood 2021 [facility], [address] [place] [address], [facility] [address], [place], [address], 10:12:59 lipid panel, serum 2021 GERARD LABMERCY, [address] [place] [address], [facility] [address], [place], [address], 10:12:58 CMP, serum or plasma 2021 [facility] LABMERCY, [address] [place] [address], [facility] [address], [place], [address], 10:12:57 CK (creatin e kinase), total, serum 2021 GERARD CASTILLO, [address], [address], [place], [address], 10:13:01 HbA1c (hemoglo bin A1c), blood 2021 GERARD CASTILLO, [address], [address], [place], [address], 10:13:00 iron + total iron-bin ding capacity (TIBC), serum 2021 GERARD CASTILLO, [address], [address], [place], [address], 10:12:58 ferritin , serum or plasma 2021 GERARD CASTILLO, [address], [address], [place], [address], 10:13:05 CBC w/ auto diff 2021 022 GERARD CASTILLO, [address], [address], [place], [address], 10:12:56 TSH, serum or plasma 2016 017 GERARD CASTILLO, [address], [address], [place], [address], 7 19:08:10 CBC 2016 017 GERARD CASTILLO, [address], [address], [place], [address], 7 19:08:08 lipid panel, serum 2016 017 [facility], [address] [facility], [address], [place], [address], 7 19:08:09 CMP, serum or plasma 2016 017 [facility], [address] [facility], [address], [place], [address], 7 19:08:09 HbA1c (hemoglo bin A1c), blood 2016 017 [facility], [address] [facility], [address], [place], [address], 19:08:11 Referral physical therapis t referral - low back pain since the delivery of her babies . Please eval and treat . Thank you 2021 [facility], [address] [place], [address], 19:59:05 cardiolo gist referral - Strong family history of heart disease . She is worried , wants to be around for her kids , non-smok er . Please evaluate and treat prn . Thank you 2021 [place], [address] [address], [address], [address], 16:06:47 Procedures None recorded . Surgeries None recorded . Imaging None recorded . Medication Orders cholecal ciferol (vitamin D3) 25 mcg (1,000 unit) tablet [id number] [facility] [address] [id number], [address], [place], [place], [id number], 16:54:29 ezetimib e 10 mg tablet [address] [facility]70, [address], [place], [place], [id number], 2 16:54:29 sertrali ne 100 mg tablet [address] [facility]55683, [address], [place], [place], [id number], 2 17:55:43 citalopr am 40 mg tablet 2016 017 [facility] #72581, [address], [place], [place], [id number], 2 11:27:06 nortript yline 10 mg capsule 2016 017 [facility] #67533, [address], [place], [place], [id number], 2 11:27:33 metronid azole 500 mg tablet 2016 017 [facility] #[id number], [address], [place], [place], [id number], 2 11:27:27 citalopr am 20 mg tablet 2016 017 [facility] #54725, [address], [place], [place], [id number], 2 11:27:03 metronid azole 500 mg tablet 2016 017 [facility] #17388, [address], [place], [place], [id number], 2 11:27:27 betameth asone dipropio kenyon 0.05 % topical ointment 2016 [facility]60, [address], [place], [place], [id number], 11:26:03 Patient TargetsNo targets recorded. Patient Instructions Encounter Date Encounter Id Patient Instructions Last Modified By Organization Details Last Modified Time 04/07/2016 [id number] her hands have flared : advised avoiding harsh detergents and anti-bacterail soaps , use eucerin cream hourly nancy Not available 04/08/2016 13:57:01 06/02/2016 [id number] we discussed a med to lower chol , she will try diet first . reviewed diet with her nancy Not available 06/03/2016 13:56:13 08/07/2016 [id number] counselled ,,, nancy Not availabl e 08/07/2016 14:46:12 denies snoring , no apnea episodes [email or web address] Not available 08/07/2016 14:46:31 10/29/2021 [id number] reviewed diet to decrease fats and carbs . does not drink much alcohol . 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 Vincent beltran history of Raised [...] .8 above high normal Not Available [facility] ([facility]) [address] [facility] [place], [address], 04/11/2016 19:08:08 04/10/19 17 04/10/2016 CBC RBC 4.82 x10e6 /uL 3.77-5 .28 Not Available [facility] ([facility]) [address] [facility] [place], [address], 04/11/2016 19:08:08 04/10/19 17 04/10/2016 CBC hemoglobin 13.5 g/dL 11.1-1 5.9 Not Available [facility] ([facility]) [address] [facility] [place], [address], 04/11/2016 19:08:08 04/10/19 17 04/10/2016 CBC hematocrit 40.3 % 34.0-4 6.6 Not Available [facility] ([facility]) [address] [facility] [place], [address], 04/11/2016 19:08:08 04/10/19 17 04/10/2016 CBC MCV 84 fL 79-97 Not Available [facility] ([facility]) [address] [facility] [place], [address], 04/11/2016 19:08:08 04/10/19 17 04/10/2016 CBC MCH 28.0 pg 26.6-3 3.0 Not Available [facility] ([facility]) [address] [facility] [place], [address], 04/11/2016 19:08:08 04/10/19 17 04/10/2016 CBC MCHC 33.5 g/dL 31.5-3 5.7 Not Available [facility] ([facility]) [address] [facility] [place], [address], 04/11/2016 19:08:08 04/10/19 17 04/10/2016 CBC RDW 13.4 % 12.3-1 5.4 Not Available [facility] ([facility]) [address] [place], [address], 04/11/2016 19:08:08 04/10/19 17 04/10/2016 CBC platelets 219 x10e3 /uL 150-37 9 Not Available [facility] ([facility]) [address] [place], [address], 04/11/2016 19:08:08 04/10/19 17 04/10/2016 CBC neutrophils 66 % Not Avai lable [facility] ([facility]) [address] [place], [address], 04/11/2016 19:08:08 04/10/19 17 04/10/2016 CBC lymphs 27 % Not Available [facility] ([facility]) [address] [place], [address], 04/11/2016 19:08:08 04/10/19 17 04/10/2016 CBC monocytes 5 % Not Availa ble [facility] ([facility]) [address] [place], [address], 04/11/2016 19:08:08 04/10/19 17 04/10/2016 CBC eos 2 % Not Available [facility] ([facility]) [address] [place], [address], 04/11/2016 19:08:08 04/10/19 17 04/10/2016 CBC basos 0 % Not Available [facility] ([facility]) [address] [place], [address], 04/11/2016 19:08:08 04/10/19 17 04/10/2016 CBC immature cells CLINICAL RESEARCH DIRECTOR Not Available [facility] ([facility]) [address] [place], [address], 04/11/2016 19:08:08 04/10/19 17 04/10/2016 CBC neutrophils (absolute) 7.6 x10e3 /uL 1.4-7. 0 above high normal Not Available [facility] ([facility]) [address] [facility], [place], [address], 04/11/2016 19:08:08 04/10/19 17 04/10/2016 CBC lymphs (absolute) 3.2 x10e3 /uL 0.7-3. 1 above high normal Not Available [facility] ([facility]) [address] [facility], [place], [address], 04/11/2016 19:08:08 04/10/19 17 04/10/2016 CBC monocytes(ab solute) 0.6 x10e3 /uL 0.1-0. 9 Not Available [facility] ([facility]) [address] [facility], [place], [address], 04/11/2016 19:08:08 04/10/19 17 04/10/2016 CBC eos (absolute) 0.3 x10e3 /uL 0.0-0. 4 Not Available [facility] ([facility]) [address] [facility], [place], [address], 04/11/2016 19:08:08 04/10/19 17 04/10/2016 CBC baso (absolute) 0.0 x10e3 /uL 0.0-0. 2 Not Available [facility] ([facility]) [address] [facility], [place], [address], 04/11/2016 19:08:08 04/10/19 17 04/10/2016 CBC immature granulocytes 0 % Not Available [facility] ([facility]) [address] [facility], [place], [address], 04/11/2016 19:08:08 04/10/19 17 04/10/2016 CBC immature grans (abs) 0.0 x10e3 /uL 0.0-0. 1 Not Available [facility] ([facility]) [address] [facility], [place], [address], 04/11/2016 19:08:08 04/10/19 17 04/10/2016 CBC NRBC CLINICAL RESEARCH DIRECTOR Not Available [facility] ([facility]) [address] [place], [address], 04/11/2016 19:08:08 04/10/19 17 04/10/2016 CBC hematology comments: CLINICAL RESEARCH DIRECTOR Not Available [facility] ([facility]) [address] [facility] [place], [address], 04/11/2016 19:08:08 04/10/19 17 04/10/2016 CMP, serum or plasm a glucose, serum 78 mg/dL 65-99 Not Available [facility] ([facility]) [address] [facility] [place], [address], 04/11/2016 19:08:09 04/10/19 17 04/10/2016 CMP, serum or plasm a BUN 7 mg/dL 6-20 Not Available [facility] ([facility]) [address] [facility] [place], [address], 04/11/2016 19:08:09 04/10/19 17 04/10/2016 CMP, serum or plasm a creatinine, serum 0.60 mg/dL 0.57-1 .00 Not Available [facility] ([facility]) [address] [facility] [place], [address], 04/11/2016 19:08:09 04/10/19 17 04/10/2016 CMP, serum or plasm a eGFR if nonafricn AM 130 mL/mi n/1.7 3 >59 Not Available [facility] ([facility]) [address] [facility] [place], [address], 04/11/2016 19:08:09 04/10/19 17 04/10/2016 CMP, serum or plasm a eGFR if africn AM 150 mL/mi n/1.7 3 >59 Not Available [facility] ([facility]) [address] [facility] [place], [address], 04/11/2016 19:08:09 04/10/19 17 04/10/2016 CMP, serum or plasm a BUN/creatini ne ratio 12 8-20 Not Available [facility] ([facility]) [address] [place], [address], 04/11/2016 19:08:09 04/10/19 17 04/10/2016 CMP, serum or plasm a sodium, serum 138 mmol/ L 134-14 4 Not Available [facility] ([facility]) [address] [place], [address], 04/11/2016 19:08:09 04/10/19 17 04/10/2016 CMP, serum or plasm a potassium, serum 3.6 mmol/ L 3.5-5. 2 Not Available [facility] ([facility]) [address] [place], [address], 04/11/2016 19:08:09 04/10/19 17 04/10/2016 CMP, serum or plasm a chloride, serum 98 mmol/ L 96-106 Not Available [facility] ([facility]) [address] [place], [address], 04/11/2016 19:08:09 04/10/19 17 04/10/2016 CMP, serum or plasm a carbon dioxide, total 20 mmol/ L 18-29 Not Available [facility] ([facility]) [address] [place], [address], 04/11/2016 19:08:09 04/10/19 17 04/10/2016 CMP, serum or plasm a calcium, serum 9.4 mg/dL 8.7-10 .2 Not Available [facility] ([facility]) [address] [place] [address], [address], 04/11/2016 19:08:09 04/10/1904/10/2016 CMP, serum or plasm a protein, total, serum 7.2 g/dL 6.0-8. 5 Not Available [facility] ([facility]) [address] [place], [address], 04/11/2016 19:08:09 04/10/19 17 04/10/2016 CMP, serum or plasm a albumin, serum 4.7 g/dL 3.5-5. 5 Not Available [facility] ([facility]) [address] [facility] [place], [address], 04/11/2016 19:08:04/10/1904/10/2016 CMP, serum or plasm a globulin, total 2.5 g/dL 1.5-4. 5 Not Available [facility] ([facility]) [address] [facility], [place], [address], 04/11/2016 19:08:04/10/1904/10/2016 CMP, serum or plasm a [...] 2.2 1.2 - 2.2 Not Available [facility] ([facility]) [address] [facility], [place], [address], 04/11/2016 19:08:04/10/1904/10/2016 CMP, serum or plasm a bilirubin, total 0.4 mg/dL 0.0-1. 2 Not Available [facility] ([facility]) [address] [facility], [place], [address], 04/11/2016 19:08:09 04/10/1904/10/2016 CMP, serum or plasm a alkaline phosphatase, S 67 IU/L 39-117 Not Available [facility] ([facility]) [address] [facility] [place], [address], 04/11/2016 19:08:09 04/10/19 17 04/10/2016 CMP, serum or plasm a AST (SGOT) 12 IU/L 0-40 Not Available [facility] ([facility]) [address] [facility] [place], [address], 04/11/2016 19:08:09 04/10/19 17 04/10/2016 CMP, serum or plasm a ALT (SGPT) 14 IU/L 0-32 Not Available [facility] ([facility]) [address] [facility] [place], [address], 04/11/2016 19:08:09 04/10/19 17 04/10/2016 lipid panel , serum cholesterol, total 191 mg/dL 100-19 9 Not Available [facility] ([facility]) [address] [facility] [place], [address], 04/11/2016 19:08:09 04/10/19 17 04/10/2016 lipid panel , serum triglyceride s 204 mg/dL 0-149 above high normal Not Available [facility] ([facility]) [address] [facility] [place], [address], 04/11/2016 19:08:09 04/10/19 17 04/10/2016 lipid panel , serum HDL cholesterol 39 mg/dL >39 below low normal Not Available [facility] ([facility]) [address] [facility] [place], [address], 04/11/2016 19:08:09 04/10/19 17 04/10/2016 lipid panel , serum VLDL cholesterol kristen 41 mg/dL 5-40 above high normal Not Available [facility] ([facility]) [address] [facility] [place], [address], 04/11/2016 19:08:09 04/10/19 17 04/10/2016 lipid panel , serum LDL cholesterol calc 111 mg/dL 0-99 above high normal Not Available [facility] ([facility]) [address] [facility], [place], [address], 04/11/2016 19:08:09 04/10/19 17 04/10/2016 lipid panel , serum comment: CLINICAL RESEARCH DIRECTOR Not Available [facility] ([facility]) [address] [facility], [place], [address], 04/11/2016 19:08:09 04/10/19 17 04/10/2016 lipid panel , serum LDL/HDL ratio 2.8 ratio _unit s 0.0-3. 2 LDL/H DL RATIO MEN WOMEN 1/2 AVG.R ISK 1.0 1.5 AVG.R ISK 3.6 3.2 2X AVG.R ISK 6.2 5.0 3X AVG.R ISK 8.0 6.1 Not Available [facility] ([facility]) [address] [facility], [place], [address], 04/11/2016 19:08:09 04/10/1904/11/2016 TSH, serum or plasm a TSH-icma 1.6 uu/mL REFER ENCE RANGE : PUBER LUDA CHILD ATIF AND ADULT S: 0.5 - 4.8 Not Available [facility] [address] [place] [address], [address], 04/11/2016 19:08:10 04/10/19 17 04/10/2016 HbA1c (hemo globi n A1c), blood hemoglobin A1C 5.1 % 4.8-5. 6 PRE-D IABET ES: 5.7 - 6.4 DIABE MAY: >6.4 GLYCE RADHA CONTR OL FOR ADULT S WITH DIABE MAY: <7.0 Not Available [facility] ([facility]) [address] [facility], [place], [address], 04/11/2016 19:08:10 09/05/19 22 09/05/2021 TSH+F REE T4 TSH 1.450 uIU/m L 0.450- 4.500 Not Available [facility] ([facility]) [address] [place], [address], 09/05/2021 10:12:56 09/05/19 22 09/05/2021 TSH+F REE T4 T4,free(dire ct) 1.20 NG/dL 0.82-1 .77 Not Available [facility] ([facility]) [address] [facility], [place], [address], 09/05/2021 10:12:56 09/05/19 22 09/05/2021 CBC WITH DIFFE RENTI AL/PL ATELE T WBC 7.3 x10e3 /uL 3.4-10 .8 Not Available [facility] ([facility]) [address] [facility], [place], [address], 09/05/2021 10:12:56 09/05/19 22 09/05/2021 CBC WITH DIFFE RENTI AL/PL ATELE T RBC 5.34 x10e6 /uL 3.77-5 .28 above high normal Not Available [facility] ([facility]) [address] [place], [address], 09/05/2021 10:12:56 09/05/19 22 09/05/2021 CBC WITH DIFFE RENTI AL/PL ATELE T hemoglobin 14.0 g/dL 11.1-1 5.9 Not Available [facility] ([facility]) [address] [place], [address], 09/05/2021 10:12:56 09/05/19 22 09/05/2021 CBC WITH DIFFE RENTI AL/PL ATELE T hematocrit 43.7 % 34.0-4 6.6 Not Available [facility] ([facility]) [address] [place], [address], 09/05/2021 10:12:56 09/05/19 22 09/05/2021 CBC WITH DIFFE RENTI AL/PL ATELE T MCV 82 fL 79-97 Not Available [facility] ([facility]) [address] [place], [address], 09/05/2021 10:12:56 09/05/19 22 09/05/2021 CBC WITH DIFFE RENTI AL/PL ATELE T MCH 26.2 pg 26.6-3 3.0 below low normal Not Available [facility] ([facility]) [address] [place], [address], 09/05/2021 10:12:56 09/05/19 22 09/05/2021 CBC WITH DIFFE RENTI AL/PL ATELE T MCHC 32.0 g/dL 31.5-3 5.7 Not Available [facility] ([facility]) [address] [place], [address], 09/05/2021 10:12:56 09/05/19 22 09/05/2021 CBC WITH DIFFE RENTI AL/PL ATELE T RDW 15.9 % 11.7-1 5.4 above high normal Not Available [facility] ([facility]) [address] [place], [address], 09/05/2021 10:12:56 09/05/19 22 09/05/2021 CBC WITH DIFFE RENTI AL/PL ATELE T platelets 222 x10e3 /uL 150-45 0 Not Available [facility] ([facility]) [address] [place], [address], 09/05/2021 10:12:56 09/05/19 22 09/05/2021 CBC WITH DIFFE RENTI AL/PL ATELE T neutrophils 68 % not estab. Not Available [facility] ([facility]) [address] [place], [address], 09/05/2021 10:12:56 09/05/19 22 09/05/2021 CBC WITH DIFFE RENTI AL/PL ATELE T lymphs 26 % not estab. Not Available [facility] ([facility]) [address] [place], [address], 09/05/2021 10:12:56 09/05/19 22 09/05/2021 CBC WITH DIFFE RENTI AL/PL ATELE T monocytes 5 % not estab. Not Available [facility] ([facility]) [address] [facility], [place], [address], 09/05/2021 10:12:56 09/05/19 22 09/05/2021 CBC WITH DIFFE RENTI AL/PL ATELE T eos 1 % not estab. Not Available [facility] ([facility]) [address] [place], [address], 09/05/2021 10:12:56 09/05/19 22 09/05/2021 CBC WITH DIFFE RENTI AL/PL ATELE T basos 0 % not estab. Not Available [facility] ([facility]) [address] [place], [address], 09/05/2021 10:12:56 09/05/19 22 09/05/2021 CBC WITH DIFFE RENTI AL/PL ATELE T immature cells CLINICAL RESEARCH DIRECTOR Not Available [facility] ([facility]) [address] [place], [address], 09/05/2021 10:12:56 09/05/19 22 09/05/2021 CBC WITH DIFFE RENTI AL/PL ATELE T neutrophils (absolute) 4.9 x10e3 /uL 1.4-7. 0 Not Available [facility] ([facility]) [address] [place], [address], 09/05/2021 10:12:56 09/05/19 22 09/05/2021 CBC WITH DIFFE RENTI AL/PL ATELE T lymphs (absolute) 1.9 x10e3 /uL 0.7-3. 1 Not Available [facility] ([facility]) [address] [place], [address], 09/05/2021 10:12:56 09/05/19 22 09/05/2021 CBC WITH DIFFE RENTI AL/PL ATELE T monocytes(ab solute) 0.4 x10e3 /uL 0.1-0. 9 Not Available [facility] ([facility]) [address] [facility], [place], [address], 09/05/2021 10:12:56 09/05/19 22 09/05/2021 CBC WITH DIFFE RENTI AL/PL ATELE T eos (absolute) 0.1 x10e3 /uL 0.0-0. 4 Not Available [facility] ([facility]) [address] [facility], [place], [address], 09/05/2021 10:12:56 09/05/19 22 09/05/2021 CBC WITH DIFFE RENTI AL/PL ATELE T baso (absolute) 0.0 x10e3 /uL 0.0-0. 2 Not Available [facility] ([facility]) [address] [facility], [place], [address], 09/05/2021 10:12:56 09/05/19 22 09/05/2021 CBC WITH DIFFE RENTI AL/PL ATELE T immature granulocytes 0 % not estab. Not Available [facility] ([facility]) [address] [facility], [place], [address], 09/05/2021 10:12:56 09/05/19 22 09/05/2021 CBC WITH DIFFE RENTI AL/PL ATELE T immature grans (abs) 0.0 x10e3 /uL 0.0-0. 1 Not Available [facility] ([facility]) [address] [place], [address], 09/05/2021 10:12:56 09/05/19 22 09/05/2021 CBC WITH DIFFE RENTI AL/PL ATELE T NRBC CLINICAL RESEARCH DIRECTOR Not Available [facility] ([facility]) [address] [place], [address], 09/05/2021 10:12:56 09/05/19 22 09/05/2021 CBC WITH DIFFE TAMEKA AL/SVETLANA Zhang hematology comments: CLINICAL RESEARCH DIRECTOR Not Available [facility] ([facility]) [address] [facility], [place], [address], 09/05/2021 10:12:56 09/05/19 22 09/05/2021 COMP. METAB OLIC PANEL (14) glucose 84 mg/dL 65-99 Not Available [facility] ([facility]) [address] [facility], [place], [address], 09/05/2021 10:12:57 09/05/19 22 09/05/2021 COMP. METAB OLIC PANEL (14) BUN 11 mg/dL 6-20 Not Available [facility] ([facility]) [address] [facility], [place], [address], 09/05/2021 10:12:57 09/05/19 22 09/05/2021 COMP. METAB OLIC PANEL (14) creatinine 0.64 mg/dL 0.57-1 .00 Not Available [facility] ([facility]) [address] [facility], [place], [address], 09/05/2021 10:12:57 09/05/19 22 09/05/2021 COMP. METAB OLIC PANEL (14) eGFR 124 mL/mi n/1.7 3 >59 Not Available [facility] ([facility]) [address] [facility], [place], [address], 09/05/2021 10:12:57 09/05/19 22 09/05/2021 COMP. METAB OLIC PANEL (14) BUN/creatini ne ratio 17 9-23 Not Available [facility] ([facility]) [address] [facility], [place], [address], 09/05/2021 10:12:57 09/05/19 22 09/05/2021 COMP. METAB OLIC PANEL (14) sodium 141 mmol/ L 134-14 4 Not Available [facility] ([facility]) [address] [facility] [place], [address], 09/05/2021 10:12:57 09/05/19 22 09/05/2021 COMP. METAB OLIC PANEL (14) potassium 4.5 mmol/ L 3.5-5. 2 Not Available [facility] ([facility]) [address] [facility] [place], [address], 09/05/2021 10:12:57 09/05/19 22 09/05/2021 COMP. METAB OLIC PANEL (14) chloride 101 mmol/ L 96-106 Not Available [facility] ([facility]) [address] [facility], [place], [address], 09/05/2021 10:12:57 09/05/19 22 09/05/2021 COMP. METAB OLIC PANEL (14) carbon dioxide, total 25 mmol/ L 20-29 Not Available [facility] ([facility]) [address] [facility] [place], [address], 09/05/2021 10:12:57 09/05/19 22 09/05/2021 COMP. METAB OLIC PANEL (14) calcium 10.0 mg/dL 8.7-10 .2 Not Available [facility] ([facility]) [address] [place], [address], 09/05/2021 10:12:57 09/05/19 22 09/05/2021 COMP. METAB OLIC PANEL (14) protein, total 7.9 g/dL 6.0-8. 5 Not Available [facility] ([facility]) [address] [facility] [place], [address], 09/05/2021 10:12:57 09/05/19 22 09/05/2021 COMP. METAB OLIC PANEL (14) albumin 4.8 g/dL 3.9-5. 0 Not Available [facility] ([facility]) [address] [place], [address], 09/05/2021 10:12:57 09/05/19 22 09/05/2021 COMP. METAB OLIC PANEL (14) globulin, total 3.1 g/dL 1.5-4. 5 Not Available [facility] ([facility]) [address] [place], [address], 09/05/2021 10:12:57 09/05/19 22 09/05/2021 COMP. METAB OLIC PANEL (14) A/G ratio 1.5 1.2-2. 2 Not Available [facility] ([facility]) [address] [place], [address], 09/05/2021 10:12:57 09/05/19 22 09/05/2021 COMP. METAB OLIC PANEL (14) bilirubin, total 0.4 mg/dL 0.0-1. 2 Not Available [facility] ([facility]) [address] [place], [address], 09/05/2021 10:12:57 09/05/19 22 09/05/2021 COMP. METAB OLIC PANEL (14) alkaline phosphatase 93 IU/L 44-121 Not Available [facility] ([facility]) [address] [place], [address], 09/05/2021 10:12:57 09/05/19 22 09/05/2021 COMP. METAB OLIC PANEL (14) AST (SGOT) 16 IU/L 0-40 Not Available [facility] ([facility]) [address] [place], [address], 09/05/2021 10:12:57 09/05/19 22 09/05/2021 COMP. METAB OLIC PANEL (14) ALT (SGPT) 22 IU/L 0-32 Not Available [facility] ([facility]) [address] [place], [address], 09/05/2021 10:12:57 09/05/19 22 09/05/2021 LIPID PANEL cholesterol, total 239 mg/dL 100-19 9 above high normal Not Available [facility] ([facility]) [address] [place], [address], 09/05/2021 10:12:58 09/05/19 22 09/05/2021 LIPID PANEL triglyceride s 568 mg/dL 0-149 alert high Not Available [facility] ([facility]) [address] [place], [address], 09/05/2021 10:12:58 09/05/19 22 09/05/2021 LIPID PANEL HDL cholesterol 36 mg/dL >39 below low normal Not Available [facility] ([facility]) [address] [place], [address], 09/05/2021 10:12:58 09/05/19 22 09/05/2021 LIPID PANEL VLDL cholesterol kristen 98 mg/dL 5-40 above high normal Not Available [facility] ([facility]) [address] [place], [address], 09/05/2021 10:12:58 09/05/19 22 09/05/2021 LIPID PANEL LDL chol calc ([facility]) 105 mg/dL 0-99 above high normal Not Available [facility] ([facility]) [address] [place], [address], 09/05/2021 10:12:58 09/05/19 22 09/05/2021 LIPID PANEL comment: CLINICAL RESEARCH DIRECTOR Not Available [facility] ([facility]) [address] [place], [address], 09/05/2021 10:12:58 09/05/19 22 09/05/2021 IRON AND TIBC iron bind.cap.(TI BC) 365 ug/dL 250-45 0 Not Available [facility] ([facility]) [address] [place], [address], 09/05/2021 10:12:58 09/05/19 22 09/05/2021 IRON AND TIBC UIBC 297 ug/dL 131-42 5 Not Available [facility] ([facility]) [address] [facility], [place], [address], 09/05/2021 10:12:58 09/05/19 22 09/05/2021 IRON AND TIBC iron 68 ug/dL 27-159 Not Available [facility] ([facility]) [address] [facility], [place], [address], 09/05/2021 10:12:58 09/05/19 22 09/05/2021 IRON AND TIBC iron saturation 19 % 15-55 Not Available [facility] ([facility]) [address] [facility], [place], [address], 09/05/2021 10:12:58 09/05/19 22 09/05/2021 VITAM IN B12 AND FOLAT E vitamin B12 403 pg/mL 232-12 45 Not Available [facility] ([facility]) [address] [facility], [place], [address], 09/05/2021 10:12:59 09/05/19 22 09/05/2021 VITAM IN B12 AND FOLAT E folate (folic acid), serum 15.9 NG/mL >3.0 A serum folat e hernán ntrat ion of less than 3.1 ng/mL is consi dered to repre sent clini kristen defic iency . Not Available [facility] ([facility]) [address] [facility], [place], [address], 09/05/2021 10:12:59 09/05/19 22 09/05/2021 HEMOG LOBIN A1C hemoglobin A1C 5.4 % 4.8-5. 6 Predi abete s: 5.7 - 6.4 Diabe may: >6.4 Glyce radha contr ol for adult s with diabe may: <7.0 Not Available [facility] ([facility]) [address] [facility], [place], [address], 09/05/2021 10:13:00 09/05/19 22 09/05/2021 VITAM IN [...] um and D. Sindhu jin DC: [facility] . 2. Azam spring MF, Rima ey [place], Komal off-F errar i DUNCAN, et al. Evalu ation , treat ment, and preve ntion of vitam in D defic iency : an Endoc rine Socie ty clini kristen pract ice guide line. JCEM. 2010; 96(7) :1911 -30. Not Available [facility] ([facility]) [address] [facility], [place], [address], 09/05/2021 10:13:00 09/05/19 22 09/05/2021 CREAT INE CAROLYNN E,TOT AL creatine kinase,total 45 U/L 32-182 Not Available [facility] ([facility]) [address] [facility], [place], [address], 09/05/2021 10:13:01 09/05/19 22 09/05/2021 MISBAH TIN ferritin 70 NG/mL 15-150 Not Available [facility] ([facility]) [address] [facility], [place], [address], 09/05/2021 10:13:05 11/06/19 22 11/05/2021 CT, coron ventura calci um score No observ ation record ed. [email or web address] [facility] [address], [place], [address], 11/07/2021 18:58:32 11/06/19 22 11/05/2021 trans -thor acic echoc ardio gram (TTE) (PROC ) No observ ation record ed. [email or web address] [facility] [address], [place], [address], 11/07/2021 18:26:56 11/15/19 22 11/05/2021 sleep study , diagn ostic (PROC ) No observ ation record ed. [address] [facility] [address] [facility], [place], [address], 11/21/2021 22:03:05 Result Notes None recorded. Problems Name Problem SNOMED Code Status Onset Date Resolution Date Notes Provider Name and Address Organization Details Recorded Time Low back strain 209143758 Active 2021 Jese Baldwin PA-C Attn: Mechelle akbar,[address] [place], [address], [facility] 2 12:00:50 Obese 561722501 Active 2021 Jese Baldwin PA-C Attn: Accounttino g,[address] [place], [address], [place] [facility] 2 12:04:12 Anemia 508595350 Active 2021 Jese Baldwin PA-C Attn: Accountin g,[address] [place], [address], [place] [facility] 2 12:05:19 Hyperlipide lisbeth 64025930 Active 2021 Jese Baldwin PA-C Attn: Accounttino g,[address] [place], [address], [place] [facility] 2 18:14:52 Vitamin D below reference range 912820137 Active 2021 Jese Baldwin PA-C Attn: Mechelle akbar,[address] [facility], [place], [address], [place] [facility] 2 18:28:26 Contact dermatitis 93792557 Active 2015 Jese Baldwin PA-C Attn: Ashleetino akbar,[address] [facility], [place], [address], [place] [facility] 6 15:12:05 Depressive disorder 88091776 Active 2015 Jese Baldwin PA-C Attn: Mechelle raffy,[address] [place], [address], [place] [facility] 6 15:13:38 Renal pain 410995672 Active 2015 Jese Baldwin PA-C Attn: Mechelle akbar,[address] [place], [address], [place] [facility] 6 15:19:11 Bacterial vaginosis 235007217 Active 2016 Jese Baldwin PA-C Attn: Mechelle raffy,[address] [facility], [place], [address], [place] [facility] 7 15:48:59 Retroverted uterus 696166961 Completed 201604/07/2016 Jese Baldwin PA-C Attn: Mechelle akbar,[address] [place], [address], [place] [facility] 7 15:53:49 Disorder of urinary bladder 74524236 Active 2016 Jese Baldwin PA-C Attn: Mechelle akbar,[address] [place], [address], [place] [facility] 7 15:53:38 Family history of Raised blood lipids 115269465 Active 2016 Jese Baldwin PA-C Attn: Mechelle akbar,[address] [facility], [place], [address], [facility] 7 15:54:58 Problem Notes None recorded. Medical Equipment None Reported. [...] Available Not Available Not Available amoxicillin 875 mg-ray france clavulanate 125 mg tablet TAKE 1 TABLET [...] Not Available Not Available Not Available Fluvirin 2084-7877 45 mcg (15 mcg x 3)/0.5 mL intramuscul ar suspension 09/02 completed Not Available Not Available Not Available Vitals Date Recorded Body height Body weight Body mass index (BMI) Oxygen saturation Oxygen saturation in Arterial blood by Pulse oximetry Heart rate Body temperature Systolic blood pressure Diastolic blood pressure Provider Name and Address Organization Details Last Updated DateTime 7 160.02 cm 38634.8 9 g 25.7 kg/m2 99 % 99 % 83 /min 98.1 [degF] 112 mm[Hg] 72 mm[Hg] Naheed Brambila [facility] 7 14:57:06 Date Recorded Body height Body weight Body mass index (BMI) Oxygen saturation Oxygen saturation in Arterial blood by Pulse oximetry Heart rate Body temperature Systolic blood pressure Diastolic blood pressure Provider Name and Address Organization Details Last Updated DateTime 7 160.02 cm 69705.8 9 g 25.7 kg/m2 98 % 98 % 88 /min 98.6 [degF] 126 mm[Hg] 64 mm[Hg] Chelsy Weller [facility] 7 15:33:01 Date Recorded Body height Body mass index (BMI) Body weight Oxygen saturation Oxygen saturation in Arterial blood by Pulse oximetry Heart rate Body temperature Systolic blood pressure Diastolic blood pressure Provider Name and Address Organization Details Last Updated DateTime 7 160.02 cm 24.4 kg/m2 94063.9 5 g 98 % 98 % 77 /min 98.5 [degF] 104 mm[Hg] 68 mm[Hg] Naheed Brambila MA [facility] 7 12:31:01 Date Recorded Body height Body mass index (BMI) Body weight Oxygen saturation Oxygen saturation in Arterial blood by Pulse oximetry Heart rate Systolic blood pressure Diastolic blood pressure Provider Name and Address Organization Details Last Updated DateTime 2 160.02 cm 31.4 kg/m2 57239.2 8 g 98 % 98 % 97 /min 126 mm[Hg] 72 mm[Hg] Kusum Travis MA [facility] 2 11:33:34 Date Recorded Body height Body mass index (BMI) Body weight Oxygen saturation Oxygen saturation in Arterial blood by Pulse oximetry Heart rate Body temperature Systolic blood pressure Diastolic blood pressure Provider Name and Address Organization Details Last Updated DateTime 2 160.02 cm 32.2 kg/m2 77024.8 1 g 98 % 98 % 93 /min 97.8 [degF] 126 mm[Hg] 70 mm[Hg] Dolores Sheriff MA [facility] 2 15:36:44 Social History Question Answer Notes LastModified by Organizat ion Details LastModified Time Tobacco Smoking Status Never Smoker Naheed Brambila MA [facility], [facility] 02/05/2016 14:49:06 Do You Have An Advance Directive? No Information not available 02/05/2016 Are You Blind Or Do You Have Difficulty Seeing? No Information not available 09/02/2021 What Is Your Level Of Caffeine Consumption? Occasional Information not available 09/02/2021 How Much Tobacco Do You Chew? None Information not available 02/05/2016 Are You Deaf Or Do You Have Serious Difficulty Hearing? No Information not available 09/02/2021 What Type Of Diet Are You Following? REGULAR Information not available 02/05/2016 Education 12 Information no t available 02/05/2016 Are There Any Guns Present In Your Home? No Information not available 02/05/2016 Hard Of Hearing Or Deaf In One Or Both Ears? No Information not available 02/05/2016 Legally Blind In One Or Both Eyes? No Information no t available 02/05/2016 Marital Status Single Informatio n not available 02/05/2016 What Was The Date Of Your Most Recent Tobacco Screening? 09/02/2021 Information not available 09/02/2021 How Many Children Do You Have? 1 Information not available 09/02/2021 Performs Monthly Self-breast Exam? Yes Information no t available 02/05/2016 What Is Your Relationship Status? [...] You Passively Exposed To Smoke? No Information no t available 09/02/2021 How Much Tobacco Do You Smoke? No Information not available 02/05/2016 General Stress Level High Information not available 02/05/2016 Do You Use Sunscreen Routinely? No Information not available 02/05/2016 How Many Years Have You Smoked Tobacco? 0 Information not available 02/05/2016 Sex: Female Functional Status Question Answer Note LastModified by Organizat ion Details LastModified Time Do you use any illicit or recreational drugs? Yes a little eddie Information not available 09/02/2021 What is your level of alcohol consumption? Occasional Information not available 02/05/2016 Are you currently employed? Yes Information not available 09/02/2021 Are you able to care for yourself? 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 Occasional Information not available 09/02/2021 Mental Status Question Answer Note LastModified by Organization D etails LastModified Time Do you feel stressed (tense, restless, nervous, or anxious, or unable to sleep at night)? [id number] Information not available 09/02/2021 Family History Relationship Description Onset Age of this Age Resolved Age Notes LastModified by Organization Details LastModified Time Mother Heart disease [email or web address] Not available 2015 14:48:33 Father Kidney disease [email or web address] Not available 2015 14:48:43 Father Hypertensive disorder [email or web address] Not available 2015 14:48:52 Medical History Condition Response Coronary Artery Disease N Other N Atrial Fibrillation N High Blood Pressure N Depression N COPD N Blood Clots N Anxiety Disorder N Muscle, Joint, or Bone Problems N Acid Reflux (GERD) N Cancer N Stroke N High Cholesterol N Liver Disease N Headaches N Kidney or Bladder Problems Y Thyroid Problems N GI Problems N Skin Problems N Anemia N Heart Attack (AK) N Diabetes N Seizures/Epilepsy N Asthma N Allergies Y Hepatitis N Heart Failure N Osteoporosis N Gynecological [...] SNOMED-CT Code Diagnosis ICD10 Code Diagnosis Note [id number] SHAYLEE Cole (Adult Med) [address] [place] [phone] 02/05/2016 14:31:47 02/05/2016 15:36:57 Contact dermatitis 92480870 L25.9 Depressive disorder 3548 9007 F32.89 Renal pain 307213914 N23 left worse than right [id number] MD Kiara Chairez (Adult Med) [address] [place] [phone] 04/07/2016 14:49:26 04/07/2016 15:58:18 Renal pain 027055156 N23 left worse than right Depressive disorder 3548 9007 F32.89 Contact dermatitis 79504 004 L25.9 Bacterial vaginosis 4197 04282 N76.0 Disorder o f urinary bladder 23624996 N32.9 Family his tory of Raised blood lipids 570512525 Z83.49 [id number] Umang Lobo MD [facility] (Adult Med) [address] [place] [address] 06/02/2016 15:02:21 06/02/2016 16:42:13 Bacterial vaginosis 456488633 N76.0 Depressive disorder 3548 9007 F32.89 [id number] Umang Lobo MD [facility] (Adult Med) [address] [place] [phone] 08/07/2016 12:20:07 08/08/2016 09:37:26 Depressive disorder 04805408 F32.89 [id number] Umang Lobo MD [facility] (Adult Med) [address] [place] [phone] 09/02/2021 11:08:20 09/03/2021 10:54:23 Family history of Raised blood lipids 834244132 Z83.49 Depressive disorder 3548 9007 F32.89 Low back strain 74887302 1 S39.012A Obese 171047541 E66.9 Anemia 052605728 D64.9 [id number] Umang Lobo MD [facility] (Adult Med) [address] [place] [phone] 10/29/2021 15:18:33 10/30/2021 10:20:13 Vitamin D below reference range 340371422 E55.9 Depressive disorder 3548 9007 F32.89 Hyperlipidemia 95145843 E78.5 Low back strain 19121755 1 S39.012A Obese 273929388 E66.9 Contact dermatitis 68457 004 L25.9 Health Concerns Section Related Observation LastModified by Organization Detai ls LastModified Time None Recorded Concern Status LastModified by Organization Details LastModified Time None Recorded Advance Directives Directive N: Payers Encounter Date Sequence Insurance Name Policy Number Policy Moise Covered Member ID Moise Member ID Guarantor Name 04/07/2016 1 [employer] (MEDICAID HMO) Janene Joshua [id number] Janene Vazquezin 06/02/2016 1 [employer] (MEDICAID HMO) Jaenne Vazquezin [id number] Janene Vazquezin 08/07/2016 1 [employer] (MEDICAID HMO) Janene Joshua [id number] Janene Vazquezin 09/02/2021 1 [facility] (MEDICAID REPLACEMENT - HMO) [id number] Janene Vazquezin [id number] Janene Joshua 10/29/2021 1 [facility] (MEDICAID REPLACEMENT - HMO) [id number] Janene Vazquezin [id number] Janene Joshua Notes Date Note Type Note Provider Name and Address Organization Details Recorded Time 04/07/2016 text/html sob with walking Jese Baldwin PA-C Attn: Accounting[address] [place], [address], [facility] 04/08/2016 13:57:45 06/02/2016 text/html bacterial vagino sis is back Jese Baldwin PA-C Attn: [address] [place], [address], [facility] 06/03/2016 13:56:32 08/07/2016 text/html feeling better o n citalopram , still just wants to sleep ....Is going to the gym every other day , proud of 9 pound weight loss . Jese Baldwin PA-C Attn: [address] [place], [address], [facility] 08/07/2016 14:46:42 09/02/2021 text/html was low on iron , chol high , triglycerides high at [employer] Jese Baldwin PA-C Attn: [address]ing[address] [place], [address], [facility] 09/03/2021 16:03:57 10/29/2021 text/html Janene Joshua i s here today for a follow up after labwork. She has started physical therapy for her lower back. She reports always being tired the whole day and does not sleep well. Jese Baldwin PA-C Attn: [address]ing[address] [facility], [place], [address], [facility] 10/30/2021 10:17:38 OBGyn Episode No OBEpisode recorded.
--- OUTSIDE RECORDS SUMMARY | 2024-07-16 23:06 | XMS_ITS | Clinical Summary ---
Author Organization [facility] Address [address] [place] [address] Care Team Providers Care Simulation Engineer Name Role Phone Unknown, Notinfile Unavailable Unavailable Karan Martinez MD Unavailable [phone] Sondra Shabazz MD Primary Care Provider Allergies Active Allergy Reactions Criticality Noted Date Comments Alprazolam Hives Medium 04/23/2024 Medications sertraline (ZOLOFT) 50 mg tablet Take 1 tablet (50 mg total) by mouth every morning Active acetaminophen (TYLENOL) 325 mg tablet Take 2 tablets (650 mg total) by mouth every 6 (six) hours as needed for pain 5 Active traMADoL (ULTRAM) 50 mg tabletIndicatio ns:Pain Take 1 tablet (50 mg total) by mouth every 8 (eight) hours as needed for pain 20 tablet 1 5 Active Additional Information Patient not taking.Informant: Self, Reported on 06/21/2024 medroxyPROGESTE Farncis (DEPO-PROVERA) 150 mg/mL injection Inject 1 mL (150 mg total) into the muscle as instructed every 3 (three) months Active Active Problems Problem Noted Date Diagnosed Date 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 Acute biliary pancreatitis 05/18/2024 Gallstone pancreatitis 04/25/2024 Abdominal pain 04/23/2024 Obstructive sleep apnea (adult) (pediatric) 12/11 Other forms of dyspnea 10/16/2021 Anemia 10/15/2021 Hyperlipidemia 10/15/2021 Obesity 10/15/2021 Encounters Date Type Department Care Team Description 06/21/2024 10:15 AM CDT Lab [facility] - Lab Collection [address] [facility] Floor 6 [place] [address] Prolonged PTT 06/21/2024 10:00 AM CDT Lab [facility] Oncology Lab [address] [facility] Floor 6 [place] [address] 06/21/2024 9:00 AM CDT Office Visit [facility] Hematology [address] [place] [address] 6 [place] [phone] Rosalva Reese MD Prolonged PTT (Primary Dx); Calculus of gallbladder with cholecystitis without biliary obstruction, unspecified cholecystitis acuity; Menorrhagia with regular cycle; Factor XII deficiency (HCC) 06/14/2024 Telephone [facility] Hematology [address] [place] [address] 6 [place] [address] Caroline Adkins 05/31/2024 2:20 PM CDT Anesthesia Event [facility] Operating Room [address] [place] [address] Phil Garrison DO Barnhart, Lynlee Jo, NP 05/31/2024 5:31 AM CDT - 05/31/2024 9:55 AM CDT Hospital Encounter [facility] Operating Room [address] [place] [address] Karan Martinez MD Discharge Disposition: Discharge to home or self care 05/31/2024 Orders Only [facility] Hematology [address] [facility] Advanced Medicine 7th [place] [address] [place] [address] Nitin Rosenthal NP Calculus of gallbladder with cholecystitis without biliary obstruction, unspecified cholecystitis acuity (Primary Dx) 05/25/2024 12:35 PM CDT Lab [address] [address] Gallstone pancreatitis 05/23/2024 Orders Only [facility] Surgery [address] [facility] [address] [place] [address] Karan Martinez MD Gallstone pancreatitis (Primary Dx) 05/18/2024 9:45 AM CDT Office Visit [facility] Surgery [address] [facility] [address] [place] [address] Karan Martinez MD Gallstone pancreatitis 05/13/2024 Documentation [facility] Primary Care at [facility] - [address] [facility] [address], [place] [phone] Rylee Duffy MA 04/26/2024 [facility] Post Discharge Follow up phone call [facility] Non-Oncology Infusion [address] [place] [address] Azul Cunha RN 04/23/2024 3:16 PM CDT - 04/25/2024 6:45 PM CDT Hospital Encounter [facility] Oncology [address] [place] [address] Jeovanny Caro MD Rudomiotov, Olga, MD Gallstone pancreatitis (Primary Dx) Discharge Disposition: Discharge to home or self care from Last 3 Months Surgical History Surgery Date Site/Laterality Comments NO PAST SURGERIES Medical History Medical History Date Comments Known health problems: none Sleep apnea Headache Chronic pain disorder Depression Anxiety Acute biliary pancreatitis, unspecified complica tion status Family History Medical History Relation Name Comments No Known Problems Other Relation Name Status Comments Other Social History Tobacco Use Types Packs/Day Years Used Date Smoking Tobacco: Never Passive Smoke Exposure: Never Smokeless Tobacco: Never Tobacco Cessation:Counseling Given: Not Answered [facility] Utilities Answer Date Recorded In the past 12 months has [employer], [employer], or water [employer] threatened to shut off services in your home? No 04/25/2024 Social Connection and Isolat ion Panel [NHANES] Answer Date Recorded In a typical week, how many times do you talk on the phone with family, friends, or neighbors? More than three times a week 04/25/2024 How often do you get togethe r with friends or relatives? More than three times a week 04/25/2024 How often do you attend up health system or religion services? Never 04/25/2024 Do you belong to any clubs o r organizations such as sikhism groups, unions, fraternal or athletic groups, or school groups? No 04/25/2024 How often do you attend meet ings of the clubs or organizations you belong to? Never 04/25/2024 Are you , , di vorced, , never , or living with a partner? Living with partner 04/25/2024 Overall Financial Resource Strain (CARDIA) Answe r Date Recorded How hard is it for you to pa y for the very basics like food, housing, medical care, and heating? Not hard at all 04/25/2024 Hunger Vital Sign Answer Date Recorded Within the past 12 months, y ou worried that your food would run out before you got the money to buy more. Never true 04/26/19 25 Within the past 12 months, t he food you bought just didn't last and you didn't have money to get more. Never true 04/25/2024 PRAPARE - Transportation Answer Date Re corded In the past 12 months, has l ack of transportation kept you from medical appointments or from getting medications? No 04/09 In the past 12 months, has l ack of transportation kept you from meetings, work, or from getting things needed for daily living? No 04/25/2024 Housing Stability Vital Sign Answer Nolberto e Recorded In the last 12 months, was t here a time when you were not able to pay the mortgage or rent on time? No 04/25/2024 In the past 12 months, how m any times have you moved where you were living? 1 04/25/2024 At any time in the past 12 m [facility], were you homeless or living in a intermediate (including now)? No 04/25/2024 Personal Safety Answer Date Recorded Have you ever been in or are you currently in a harmful physical or emotional relationship or is someone making you feel afraid or unsafe? Denies 05/31/2024 Comments No Sex and Gender Information Value Date Recorded Sex Assigned at Not on file Legal Sex Female 11:46 AM CDT Gender Identity Not on file Sexual Orientation Not on file Obstetrics History Last Filed Vital Signs Vital Sign Reading Time Taken Comments Blood Pressure 137/83 06/21/2024 8:46 AM CDT Pulse 109 06/21/2024 8:46 AM CDT Temperature 36.3 C (97.4 F) 06/21/2024 8:46 AM CDT Respiratory Rate 18 06/21/2024 8:46 AM CDT Oxygen Saturation 98% 06/21/2024 8:46 AM CDT Inhaled Oxygen Concentration - - Weight 71.3 kg (157 lb 3.2 oz) 06/21/2024 8:46 A M CDT Height 159.6 cm (5' 2.84) 06/21/2024 8:46 AM CD T Body Mass Index 27.99 06/21/2024 8:46 AM CDT Plan of Treatment Health Maintenance Due Date Last Done Comments Cervical Cancer Screening 1994 Depression Screening 1994 Hepatitis C Screening 1994 Regular Well Visit/Exam 18-64 01/29/2012 Influenza Vaccine (Season Ended) 2024 12/07/2013 DTaP/Tdap/Td Vaccine (8 - Td or Tdap) 07/26/2030 07/26/2020, 10/01/2009, 09/18/1999, Additional history exists Hepatitis B Screening Completed 1994 , 1994, 1994 Varicella Vaccines Completed 10/01/2009, 03/02/1996 HPV Vaccines Aged Out No longer eligi ble based on patient's age to complete this topic Pneumococcal vaccine <65 Aged Out No longer eligible based on patient's age to complete this topic Procedures Procedure Name Priority Date/Time Associated Diagnosis Comments APTT MIXING STUDY Routine 06/21/2024 10: 15 AM CDT Prolonged PTT CRITICAL RESULT CALLBACK HEMATOLOGY Routine 06/21/2024 10:15 AM CDT Prolonged PTT CRITICAL RESULT CALLBACK HEMATOLOGY Routine 06/21/2024 10:15 AM CDT Prolonged PTT APTT Routine 06/21/2024 10:15 AM CDT Prolonged PTT PROTIME-INR Routine 06/21/2024 10:15 AM CDT Prolonged PTT LUPUS ANTICOAGULANT PANEL PLUS REFLEXES Routine 06/21/2024 10:15 AM CDT Prolonged PTT PT MIXING STUDY Routine 06/21/2024 10:15 AM CDT Prolonged PTT FACTOR VIII ACTIVITY Routine 06/21/2024 10:15 AM CDT Prolonged PTT FACTOR XII ACTIVITY Routine 06/21/2024 1 0:15 AM CDT Prolonged PTT FACTOR XI ACTIVITY Routine 06/21/2024 10 :15 AM CDT Prolonged PTT FACTOR IX ACTIVITY Routine 06/21/2024 10 :15 AM CDT Prolonged PTT APTT STAT 05/31/2024 8:49 AM CDT PROTIME-INR STAT 05/31/2024 7:54 AM CDT POCT HCG, URINE Routine 05/31/2024 7:00 AM CDT DIFFERENTIAL AUTO Routine 05/25/2024 12: 55 PM CDT Gallstone pancreatitis CBC WITH AUTO DIFFERENTIAL Routine 05/25/2024 12:55 PM CDT Gallstone pancreatitis EGFR Routine 05/25/2024 12:54 PM CDT Gallstone pancreatitis COMPREHENSIVE METABOLIC PANEL Routine 05/25/2024 12:54 PM CDT Gallstone pancreatitis EGFR Routine 04/25/2024 4:59 AM CDT COMPREHENSIVE METABOLIC PANEL Routine 04/25/2024 4:59 AM CDT DIFFERENTIAL AUTO Routine 04/25/2024 4:5 8 AM CDT CBC WITH AUTO DIFFERENTIAL Routine 04/25/2024 4:58 AM CDT FERRITIN Add-On 04/24/2024 5:32 AM CDT IRON PROFILE W/ IBC Add-On 04/24/2024 5 :32 AM CDT EGFR Routine 04/24/2024 5:32 AM CDT DIFFERENTIAL AUTO Routine 04/24/2024 5:3 2 AM CDT COMPREHENSIVE METABOLIC PANEL Routine 04/24/2024 5:32 AM CDT CBC WITH AUTO DIFFERENTIAL Routine 04/24/2024 5:32 AM CDT APTT Routine 04/24/2024 5:32 AM CDT PROTIME-INR Routine 04/24/2024 5:32 AM CDT EGFR Routine 04/23/2024 8:08 PM CDT DIFFERENTIAL AUTO Routine 04/23/2024 8:0 8 PM CDT LIPASE Routine 04/23/2024 8:08 PM CDT COMPREHENSIVE METABOLIC PANEL Routine 04/23/2024 8:08 PM CDT CBC WITH AUTO DIFFERENTIAL Routine 04/23/2024 8:08 PM CDT from Last 3 Months Results * (ABNORMAL) Lupus Anticoagulant Panel plus Reflexes (06/21/2024 10:15 AM CDT) PT 10.9 9.7 - 13.0 sec INR 1.01 0.90 - 1.20 [facility] Comment: Interpretive data Oral anticoagulant therapeutic ranges: Venous thromboembolism prophylaxis or treatment: 2.0-3.0 CARDIOLOGY Standard range: 2.0-3.0 High-intensity range: 2.5-3.5 Refer to indication-specific guidelines for appropriate target ranges for prosthetic heart valve replacement. Current interpretive data was last revised on 2019. aPTT >150(C) 28 - 38 sec [facility] Comment: Repeated and verified. No clot detected in sample. Interpretive Data Heparin therapeutic range: 66.0 - 100.0 seconds. Range based on correlation with therapeutic heparin activity range of 0.3 - 0.7 Units/mL. Current interpretive data was last revised on 2022. Thrombin Time 13.40 10.00 - 15.00 sec [facility] DRVVT screen ratio 1.14 0.00 - 1.20 Ratio [facility] DRV[facility] confirm ratio 1.06 Ratio [facility] DR[facility] S/C Ratio 1.08 0.00 - 1.20 Ratio [facility] 50:50 Mix Ratio 1.13 0.00 - 1.20 Ratio [facility] SCT Screen Ratio See Comment 0.00 - 1.16 Ratio [facility] Comment:Sample did not clot, unable to generate ratio. SCT Confirm Ratio See Comment Ratio [facility] Comment:Sample did not clot, unable to generate ratio. SCT S/C Ratio See Comment 0.00 - 1.16 Ratio [facility] Comment:Sample did not clot, unable to generate ratio. SCT 50:50 Mix Ratio 1.24(H) 0.00 - 1.16 Ratio [facility] Lupus anticoagulant, interp Negative [facility] Comment: Interpretive data Lupus anticoagulants (LA) are acquired autoantibodies that interfere with invitro clotting in a phospholipid-dependent manner and are associated with an increased risk of thromboembolic events and complications. Routine APTT and PT reagents are not sensitive to inhibition by LA, and should not be used as screening tests. The laboratory follows ISTH 2009 guidelines (Pengo, 2009) for LA testing and interpretation: Two sensitive methods performed in parallel improve sensitivity. One activates the intrinsic pathway (Silica-APTT) and one activates the common pathway (dilute Vic's viper venom time - dRVVT). Each method begins with a SCREEN step, and if neither is prolonged, no further testing is performed and the interpretation is: NO LA DETECTED. If either screening test is prolonged, then additional steps are performed to provide specificity. A POSITIVE LA result occurs if either one or both tests produce a positive CONFIRM result. An INDETERMINATE result means results cannot distinguish between coagulopathy and a weak LA. Consider retesting when PT/INR is less prolonged, if clinical indicated. To support laboratory confirmation of antiphospholipid syndrome, persistence of a positive LA result should be verified by repeat testing at least 12 weeks later (Jami, 2006). Prior to LA testing, the laboratory screens patient plasma samples for evidence of heparin contamination, which is neutralized prior to LA testing, and the following interfering conditions which require canceling LA testing: INR >3.0, fibrinogen < 100 mg/dl, use of direct oral or IV anticoagulants other than heparin. References: 1) Lawrenceo V, Olivia A, Joana JH, Ormartl TL, Ana M, De Nilo PG. Update of the guidelines for lupus anticoagulant detection. J Thromb Haemost. 2009; 7:4118-3194. 2. Jami Torres. et al. International consensus statement on an update of the classification criteria for definite antiphospholipid syndrome (APS). J Thromb Haemost. 2006; 4:295-306. Current interpretive data was last revised on 2017 Blood 06/21/2024 10:1 5 AM CDT 06/21/2024 10:51 AM CDT Rosalva Reese MD LAB BLOOD ORDERABLES Final Result [facility] [place] [address] * Critical Result Callback Hematology (06/21/2024 10:15 AM CDT) Pathologist [facility] Date Notified 20240621 Time Notified [facility] TestName aPTT [facility] Called/Read Back Charlotte DE LA ROS[facility] Credentials RN [facility] ZURITA Called By SB [facility] Blood 06/21/2024 10:1 5 AM CDT 06/21/2024 10:51 AM CDT Rosalva Reese MD LAB BLOOD ORDERABLES Final Result [facility] [place] [address] * Critical Result Callback Hematology (06/21/2024 10:15 AM CDT) Date Notified 20240621 Time Notified [facility] TestName aPTT [facility]UR[facility] Called/Read Back Charlotte ZURITA Credentials RN [facility] Called By SB [facility] Blood 06/21/2024 10:1 5 AM CDT 06/21/2024 10:51 AM CDT us Roslava Reese MD LAB BLOOD ORDERABLES Final Result [facility] Department [place] [address] * (ABNORMAL) aPTT mixing study (06/21/2024 10:15 AM CDT) aPTT >150(C) 28 - 38 sec Comment: Consistent with PTT order result. Interpretive Data Heparin therapeutic range: 66.0 - 100.0 seconds. Range based on correlation with therapeutic heparin activity range of 0.3 - 0.7 Units/mL. Current interpretive data was last revised on 2022. aPTT, 50/50 mix 34 28 - 38 sec [facility] Comment: Interpretive data Evaluating an unexpected prolonged aPTT/PT begins with a 50:50 mix (patient plasma: pooled normal plasma). If the aPTT/PT is markedly prolonged and 50:50 mix corrects (to within or slightly above upper limit of aPTT/PT reference range), a deficiency of > 1 coagulation factor is likely. If aPTT/PT 50:50 mix does not correct, there may be an inhibitory antibody. Order testing for lupus anticoagulant (LA) or specific factor inhibitor (almost exclusively to FVIII), guided by clinical findings. FVIII inhibitors (and rarely LA) will partially correct immediately after 50:50 mix, but prolong again after 1 hour incubation. When the aPTT/PT is minimally prolonged, 50:50 mix complete correction is non-specific since a weak inhibitor may disappear on dilution. Anticoagulants (heparin, LMWH, argatroban, bivalirudin, dabigatran) prolong aPTT and behave like inhibitory antibodies in 50:50 mix. The lab will screen for them and cancel if present. Current interpretive data was last revised on 2019. aPTT, 50/50 mix, 1 hr 35 28 - 38 sec [facility] Blood 06/21/2024 10:1 5 AM CDT 06/21/2024 10:51 AM CDT us Rosalva Reese MD LAB BLOOD ORDERABLES Final Result [facility] Department [place] [address] * PT mixing study (06/21/2024 10:15 AM CDT) PT 10.4 9.7 - 13.0 sec INR 0.96 0.90 - 1.20 [facility] Comment: Interpretive data Oral anticoagulant therapeutic ranges: Venous thromboembolism prophylaxis or treatment: 2.0-3.0 CARDIOLOGY Standard range: 2.0-3.0 High-intensity range: 2.5-3.5 Refer to indication-specific guidelines for appropriate target ranges for prosthetic heart valve replacement. Current interpretive data was last revised on 2019. PT, 50/50 mix See Comment 9.7 - 13.0 sec [facility] Comment: Credited, test not indicated. Interpretive data Evaluating an unexpected prolonged aPTT/PT begins with a 50:50 mix (patient plasma: pooled normal plasma). If the aPTT/PT is markedly prolonged and 50:50 mix corrects (to within or slightly above upper limit of aPTT/PT reference range), a deficiency of > 1 coagulation factor is likely. If aPTT/PT 50:50 mix does not correct, there may be an inhibitory antibody. Order testing for lupus anticoagulant (LA) or specific factor inhibitor (almost exclusively to FVIII), guided by clinical findings. FVIII inhibitors (and rarely LA) will partially correct immediately after 50:50 mix, but prolong again after 1 hour incubation. When the aPTT/PT is minimally prolonged, 50:50 mix complete correction is non-specific since a weak inhibitor may disappear on dilution. Anticoagulants (heparin, LMWH, argatroban, bivalirudin, dabigatran) prolong aPTT and behave like inhibitory antibodies in 50:50 mix. The lab will screen for them and cancel if present. Current interpretive data was last revised on 2019. INR, 50/50 mix See Comment 0.90 - 1.20 [facility] Comment:Credited, test not i ndicated. Blood 06/21/2024 10:1 5 AM CDT 06/21/2024 10:51 AM CDT Rosalva Reese MD LAB BLOOD ORDERABLES Final Result Performing Organization Address [facility] de Phone Number [facility] [place] [address] * (ABNORMAL) aPTT (06/21/2024 10:15 AM CDT) aPTT >150(C) 28 - 38 sec Comment: No clot detected in sample Repeated and verified - [id number] - 06/21/24, 11:50 AM Interpretive Data Heparin therapeutic range: 66.0 - 100.0 seconds. Range based on correlation with therapeutic heparin activity range of 0.3 - 0.7 Units/mL. Current interpretive data was last revised on 2022. Blood 06/21/2024 10:1 5 AM CDT 06/21/2024 10:51 AM CDT Rosalva Reese MD LAB BLOOD ORDERABLES Final Result Performing Organization Address [facility] de Phone Number [facility] [place] [address] * Protime-INR (06/21/2024 10:15 AM CDT) PT 10.4 9.7 - 13.0 sec INR 0.96 0.90 - 1.20 [facility] Comment: Interpretive data Oral anticoagulant therapeutic ranges: Venous thromboembolism prophylaxis or treatment: 2.0-3.0 CARDIOLOGY Standard range: 2.0-3.0 High-intensity range: 2.5-3.5 Refer to indication-specific guidelines for appropriate target ranges for prosthetic heart valve replacement. Current interpretive data was last revised on 2019. Blood 06/21/2024 10:1 5 AM CDT 06/21/2024 10:51 AM CDT Rosalva Reese MD LAB BLOOD ORDERABLES Final Result Performing Organization Address [facility] de Phone Number [facility] [place] [address] * (ABNORMAL) Factor XII activity (06/21/2024 10:15 AM CDT) Factor XII activity 3(L) 45 - 170 %norm Blood 06/21/2024 10:1 5 AM CDT 06/21/2024 10:51 AM CDT Rosalva Reese MD LAB BLOOD ORDERABLES Final Result Performing Organization Address [facility] de Phone Number [facility] [place] [address] * Factor XI activity (06/21/2024 10:15 AM CDT) Factor XI activity 131 60 - 140 %norm Blood 06/21/2024 10:1 5 AM CDT 06/21/2024 10:51 AM CDT Rosalva Reese MD LAB BLOOD ORDERABLES Final Result Performing Organization Address [facility] de Phone Number [facility] [place] [address] * Factor IX activity (06/21/2024 10:15 AM CDT) Factor IX activity 148 55 - 160 %norm Blood 06/21/2024 10:1 5 AM CDT 06/21/2024 10:51 AM CDT Rosalva Reese MD LAB BLOOD ORDERABLES Final Result Performing Organization Address City/[facility]/ZIP Co de Phone Number [facility] [place] [address] * (ABNORMAL) Factor VIII activity (06/21/2024 10:15 AM CDT) Factor VIII activity 190(H) 45 - 160 %norm Blood 06/21/2024 10:1 5 AM CDT 06/21/2024 10:51 AM CDT Rosalva Reese MD LAB BLOOD ORDERABLES Final Result Performing Organization Address [facility] de Phone Number [facility] [place] [address] * (ABNORMAL) aPTT (05/31/2024 8:49 AM CDT) aPTT >150(C) 28 - 38 sec Comment: Alert value aPTT called to and read back by Linda Henderson at 05/31/2024 09:17:13 CDT by Aniyah Fitzpatrick. Interpretive Data Heparin therapeutic range: 66.0 - 100.0 seconds. Range based on correlation with therapeutic heparin activity range of 0.3 - 0.7 Units/mL. Current interpretive data was last revised on 2022. Blood 05/31/2024 8:4 9 AM CDT 05/31/2024 8:50 AM CDT Matthew Ybarra MD LAB BLOOD ORDERABLES Final Result Performing Organization Address City/[facility] Co de Phone Number [facility] [address] [address] Department [place] [address] * Protime-INR (05/31/2024 7:54 AM CDT) PT 11.4 9.7 - 13.0 sec INR 1.05 0.90 - 1.20 [facility] Comment: Interpretive data Oral anticoagulant therapeutic ranges: Venous thromboembolism prophylaxis or treatment: 2.0-3.0 CARDIOLOGY Standard range: 2.0-3.0 High-intensity range: 2.5-3.5 Refer to indication-specific guidelines for appropriate target ranges for prosthetic heart valve replacement. Current interpretive data was last revised on 2019. Blood 05/31/2024 7:54 AM CDT 05/31/2024 7:54 AM CDT us Matthew Ybarra MD LAB BLOOD ORDERABLES Final Result [facility] [address] [address] Department [place] [address] * POCT hCG, urine (05/31/2024 7:00 AM CDT) HCG, ur, POC Negative Negative Lot Number [id number] QC Backgroud Clear Acceptable QC Control Line Acceptable Urine 05/31/2024 7:00 AM CDT us Karan Martinez MD POINT OF CARE TEST ORDERAB LES Final Result * Differential, auto (05/25/2024 12:55 PM CDT) Neutrophil abs 4.80 1.50 - 6.50 K/cumm Imm gran abs 0.02 0.00 - 0.10 K/cumm [facility] Lymphocyte abs 2.10 0.80 - 3.30 K/cumm [facility] Monocyte abs 0.34 0.20 - 0.80 K/cumm [facility] Eosinophil abs 0.13 0.00 - 0.50 K/cumm [facility] Basophil abs 0.02 0.00 - 0.10 K/cumm [facility] Neutrophil pct 64.7 % [facility] Comment: Interpretive Data Percent cell count reference ranges are not reported, since discordance with absolute values may lead to misinterpretation of CBC data. Current Interpretive Data was last revised on 2017. Imm gran pct 0.3 % [facility] Comment: Interpretive Data Percent cell count reference ranges are not reported, since discordance with absolute values may lead to misinterpretation of CBC data. Current Interpretive Data was last revised on 2017. Lymphocyte pct 28.3 % [facility] Comment: Interpretive Data Percent cell count reference ranges are not reported, since discordance with absolute values may lead to misinterpretation of CBC data. Current Interpretive Data was last revised on 2017. Monocyte pct 4.6 % [facility] Comment: Interpretive Data Percent cell count reference ranges are not reported, since discordance with absolute values may lead to misinterpretation of CBC data. Current Interpretive Data was last revised on 2017. Eosinophil pct 1.8 % [facility] Comment: Interpretive Data Percent cell count reference ranges are not reported, since discordance with absolute values may lead to misinterpretation of CBC data. Current Interpretive Data was last revised on 2017. Basophil pct 0.3 % [facility] Comment: Interpretive Data Percent cell count reference ranges are not reported, since discordance with absolute values may lead to misinterpretation of CBC data. Current Interpretive Data was last revised on 2017. Blood 05/25/2024 12:5 5 PM CDT 05/25/2024 12:55 PM CDT Karan Martinez MD LAB BLOOD ORDERABLES Final Result [facility] [address] Department [place] [address] * (ABNORMAL) CBC with auto differential (05/25/2024 12:55 PM CDT) WBC 7.41 3.80 - 9.90 K/cumm Hgb 12.0 11.9 - 15.5 g/dL [facility] Hct 39.0 35.6 - 45.5 % [facility] Plt 270 150 - 400 K/cumm [facility] MPV 10.2 9.1 - 12.3 fL [facility] RBC 4.80 3.90 - 5.20 M/cumm [facility] MCV 81.3 81.3 - 96.4 fL [facility] MCH 25.0(L) 27.1 - 33.3 pg [facility] MCHC 30.8(L) 32.3 - 35.7 g/dL [facility] RDW CV 16.0(H) 11.1 - 14.9 % [facility] RDW SD 47.8 35.7 - 48.1 fL [facility] NRBC abs 0.00 0.00 - 0.01 K/cumm [facility] Blood 05/25/2024 12:5 5 PM CDT 05/25/2024 12:55 PM CDT us Karan Martinez MD LAB BLOOD ORDERABLES Final Result Performing Organization Address [facility] Co de Phone Number [facility] FRAGA [address] [place] [address] * eGFR (05/25/2024 12:54 PM CDT) eGFR >90 >=60 mL/min/1. 73 m2 Comment: Interpretive Data Reference Interval Normal >/= 90 mL/min/1.73m2 Mildly decreased* 60 - 89 mL/min/1.73m2 Mildly to moderately decreased 45 - 59 mL/min/1.73m2 Moderately to severely decreased 30 - 44 mL/min/1.73m2 Severely decreased 15 - 29 mL/min/1.73m2 Kidney Failure < 15 mL/min/1.73m2 *Relative to young adult level Estimated glomerular filtration rate is determined by the 2020 CKD-EPI equation recommended by the National Kidney Foundation (A Unifying Approach to GFR Estimation: Recommendations of the NKF-ASK Task Force on Reassessing the Inclusion of Race in Diagnosing Kidney Disease, JASN 2020). The CKD-EPI equation should not be used for patients with unstable renal function and has not been validated in children and those over 70. Current interpretive data was last reviewed 2020. Blood 05/25/2024 12:5 4 PM CDT 05/25/2024 12:54 PM CDT us Karan Maritnez MD LAB BLOOD ORDERABLES Final Result Performing Organization Address City/[facility]/ZIP Co de Phone Number [facility] FRAGA [address] [place] [address] * (ABNORMAL) Comprehensive metabolic panel (05/25/2024 12:54 PM CDT) Sodium 137 135 - 145 mmol/L Potassium, pl 4.1 3.3 - 4.9 mmol/L [facility] Chloride 103 97 - 110 mmol/L [facility] CO2 22 22 - 32 mmol/L [facility] Anion gap 12 2 - 15 mmol/L [facility] BUN 12 6 - 25 mg/dL [facility] Creatinine 0.71 0.60 - 1.10 mg/dL [facility] Glucose 87 70 - 199 mg/dL [facility] Comment: Interpretive Data Fasting glucose >/= 126 mg/dl is diagnostic for diabetes. Fasting is defined as no caloric intake for at least 8 hours. Fasting glucose between 100 mg/dl to 125 mg/dl is diagnostic of prediabetes. In a patient with classic symptoms of hyperglycemia or hyperglycemic crisis, a random glucose >/= 200 mg/dl is diagnostic for diabetes. In the absence of unequivocal hyperglycemia, results should be confirmed by repeat testing. The classification and Diagnosis of Diabetes Diabetes Care 2021; 46: S19-S40. Current interpretive data was last revised 2022. Calcium 9.9 8.5 - 10.3 mg/dL [facility] Bilirubin, total 0.3 0.1 - 1.2 mg/dL [facility] Protein, pl 7.8 6.5 - 8.5 g/dL [facility] Albumin 4.6 3.5 - 5.0 g/dL [facility] Alk phos 148(H) 40 - 130 Units/L [facility] ALT 102(H) 7 - 45 Units/L [facility] AST 30 10 - 45 Units/L [facility] Blood 05/25/2024 12:5 4 PM CDT 05/25/2024 12:54 PM CDT us Karan Martinez MD LAB BLOOD ORDERABLES Final Result [facility] [address] Department [place] [address] * eGFR (04/25/2024 4:59 AM CDT) eGFR 70 >=60 mL/min/1. 73 m2 Comment: Interpretive Data Reference Interval Normal >/= 90 mL/min/1.73m2 Mildly decreased* 60 - 89 mL/min/1.73m2 Mildly to moderately decreased 45 - 59 mL/min/1.73m2 Moderately to severely decreased 30 - 44 mL/min/1.73m2 Severely decreased 15 - 29 mL/min/1.73m2 Kidney Failure < 15 mL/min/1.73m2 *Relative to young adult level Estimated glomerular filtration rate is determined by the 2020 CKD-EPI equation recommended by the National Kidney Foundation (A Unifying Approach to GFR Estimation: Recommendations of the NKF-ASK Task Force on Reassessing the Inclusion of Race in Diagnosing Kidney Disease, JASN 2020). The CKD-EPI equation should not be used for patients with unstable renal function and has not been validated in children and those over 70. Current interpretive data was last reviewed 2020. Blood 04/25/2024 4:59 AM CDT 04/25/2024 4:59 AM CDT Brooke Matos NP LAB BLOOD ORDERABLES nal Result [facility] [address] Department [place] [address] * (ABNORMAL) Comprehensive metabolic panel (04/25/2024 4:59 AM CDT) Pathologist [facility] Sodium 138 135 - 145 mmol/L Potassium, pl 4.0 3.3 - 4.9 mmol/L [facility] Chloride 101 97 - 110 mmol/L [facility] CO2 24 22 - 32 mmol/L [facility] Anion gap 13 2 - 15 mmol/L [facility] BUN 14 6 - 25 mg/dL [facility] Creatinine 1.09 0.60 - 1.10 mg/dL [facility] Glucose 107 70 - 199 mg/dL [facility] Comment: Interpretive Data Fasting glucose >/= 126 mg/dl is diagnostic for diabetes. Fasting is defined as no caloric intake for at least 8 hours. Fasting glucose between 100 mg/dl to 125 mg/dl is diagnostic of prediabetes. In a patient with classic symptoms of hyperglycemia or hyperglycemic crisis, a random glucose >/= 200 mg/dl is diagnostic for diabetes. In the absence of unequivocal hyperglycemia, results should be confirmed by repeat testing. The classification and Diagnosis of Diabetes Diabetes Care 2021; 46: S19-S40. Current interpretive data was last revised 2022. Calcium 9.6 8.5 - 10.3 mg/dL [facility] Bilirubin, total 0.3 0.1 - 1.2 mg/dL [facility] Protein, pl 7.7 6.5 - 8.5 g/dL [facility] Albumin 3.7 3.5 - 5.0 g/dL [facility] Alk phos 189(H) 40 - 130 Units/L [facility] ALT 69(H) 7 - 45 Units/L [facility] AST 37 10 - 45 Units/L [facility] Blood 04/25/2024 4:59 AM CDT 04/25/2024 4:59 AM CDT Brooke Matos [employer]PER[employer] LAB BLOOD ORDERABLES nal Result [facility] [address] Department [place] [address] * (ABNORMAL) Differential, auto (04/25/2024 4:58 AM CDT) Neutrophil abs 8.2(H) 1.5 - 6.5 K/cumm Imm gran abs 0.1 0.0 - 0.1 K/cumm [facility] Lymphocyte abs 1.6 0.8 - 3.3 K/cumm [facility] Monocyte abs 0.4 0.2 - 0.8 K/cumm [facility] Eosinophil abs 0.2 0.0 - 0.5 K/cumm [facility] Basophil abs 0.0 0.0 - 0.1 K/cumm [facility] Neutrophil pct 78.2 % [facility] Comment: Interpretive Data Percent cell count reference ranges are not reported, since discordance with absolute values may lead to misinterpretation of CBC data. Current Interpretive Data was last revised on 2017. Imm gran pct 0.8 % [facility] Comment: Interpretive Data Percent cell count reference ranges are not reported, since discordance with absolute values may lead to misinterpretation of CBC data. Current Interpretive Data was last revised on 2017. Lymphocyte pct 14.8 % [facility] Comment: Interpretive Data Percent cell count reference ranges are not reported, since discordance with absolute values may lead to misinterpretation of CBC data. Current Interpretive Data was last revised on 2017. Monocyte pct 4.1 % [facility] Comment: Interpretive Data Percent cell count reference ranges are not reported, since discordance with absolute values may lead to misinterpretation of CBC data. Current Interpretive Data was last revised on 2017. Eosinophil pct 1.8 % [facility] Comment: Interpretive Data Percent cell count reference ranges are not reported, since discordance with absolute values may lead to misinterpretation of CBC data. Current Interpretive Data was last revised on 2017. Basophil pct 0.3 % [facility] Comment: Interpretive Data Percent cell count reference ranges are not reported, since discordance with absolute values may lead to misinterpretation of CBC data. Current Interpretive Data was last revised on 2017. Blood 04/25/2024 4:58 AM CDT 04/25/2024 4:58 AM CDT Brooke Matos [employer] OPERATOR LAB BLOOD ORDERABLES nal Result [facility] [address] Department [place] [address] * (ABNORMAL) CBC with auto differential (04/25/2024 4:58 AM CDT) WBC 10.5(H) 3.8 - 9.9 K/cumm Hgb 8.9(L) 11.9 - 15.5 g/dL [facility] Hct 28.3(L) 35.6 - 45.5 % [facility] Plt 597(H) 150 - 400 K/cumm [facility] MPV 9.1 9.1 - 12.3 fL [facility] RBC 3.54(L) 3.90 - 5.20 M/cumm [facility] MCV 79.9(L) 81.3 - 96.4 fL [facility] MCH 25.1(L) 27.1 - 33.3 pg [facility] MCHC 31.4(L) 32.3 - 35.7 g/dL [facility] RDW CV 15.8(H) 11.1 - 14.9 % [facility] RDW SD 45.9 35.7 - 48.1 fL [facility] NRBC abs 0.00 0.00 - 0.01 K/cumm [facility] Blood 04/25/2024 4:58 AM CDT 04/25/2024 4:58 AM CDT Brooke Matos [employer] OPERATOR LAB BLOOD ORDERABLES Fi nal Result [facility] FRAGA [address] Department [place] [address] * eGFR (04/24/2024 5:32 AM CDT) eGFR 68 >=60 mL/min/1. 73 m2 Comment: Interpretive Data Reference Interval Normal >/= 90 mL/min/1.73m2 Mildly decreased* 60 - 89 mL/min/1.73m2 Mildly to moderately decreased 45 - 59 mL/min/1.73m2 Moderately to severely decreased 30 - 44 mL/min/1.73m2 Severely decreased 15 - 29 mL/min/1.73m2 Kidney Failure < 15 mL/min/1.73m2 *Relative to young adult level Estimated glomerular filtration rate is determined by the 2020 CKD-EPI equation recommended by the National Kidney Foundation (A Unifying Approach to GFR Estimation: Recommendations of the NKF-ASK Task Force on Reassessing the Inclusion of Race in Diagnosing Kidney Disease, JASN 202). The CKD-EPI equation should not be used for patients with unstable renal function and has not been validated in children and those over 70. Current interpretive data was last reviewed 2020. Blood 04/24/2024 5:32 AM CDT 04/24/2024 5:37 AM CDT Brooke Matos [employer] OPERATOR LAB BLOOD ORDERABLES Fi nal Result [facility] [address] Department [place] [address] * (ABNORMAL) Differential, auto (04/24/2024 5:32 AM CDT) Neutrophil abs 10.3(H) 1.5 - 6.5 K/cumm Imm gran abs 0.1 0.0 - 0.1 K/cumm [facility] Lymphocyte abs 1.4 0.8 - 3.3 K/cumm [facility] Monocyte abs 0.5 0.2 - 0.8 K/cumm [facility] Eosinophil abs 0.2 0.0 - 0.5 K/cumm [facility] Basophil abs 0.0 0.0 - 0.1 K/cumm [facility] Neutrophil pct 82.3 % [facility] Comment: Interpretive Data Percent cell count reference ranges are not reported, since discordance with absolute values may lead to misinterpretation of CBC data. Current Interpretive Data was last revised on 2017. Imm gran pct 0.9 % [facility] Comment: Interpretive Data Percent cell count reference ranges are not reported, since discordance with absolute values may lead to misinterpretation of CBC data. Current Interpretive Data was last revised on 2017. Lymphocyte pct 11.4 % [facility] Comment: Interpretive Data Percent cell count reference ranges are not reported, since discordance with absolute values may lead to misinterpretation of CBC data. Current Interpretive Data was last revised on 2017. Monocyte pct 3.9 % [facility] Comment: Interpretive Data Percent cell count reference ranges are not reported, since discordance with absolute values may lead to misinterpretation of CBC data. Current Interpretive Data was last revised on 2017. Eosinophil pct 1.3 % [facility] Comment: Interpretive Data Percent cell count reference ranges are not reported, since discordance with absolute values may lead to misinterpretation of CBC data. Current Interpretive Data was last revised on 2017. Basophil pct 0.2 % [facility] Comment: Interpretive Data Percent cell count reference ranges are not reported, since discordance with absolute values may lead to misinterpretation of CBC data. Current Interpretive Data was last revised on 2017. Blood 04/24/2024 5:32 AM CDT 04/24/2024 5:37 AM CDT Brooke Matos WE[employer] OPERATOR LAB BLOOD ORDERABLES Fi nal Result Performing Organization Address City/[facility]/ZIP Co de Phone Number ESTRELLA FRAGA [address] Department [place] [address] * (ABNORMAL) Iron profile w/ IBC (04/24/2024 5:32 AM CDT) Iron 21(L) 35 - 145 mcg/dl TIBC 219(L) 250 - 400 mcg/dL [facility] Transferrin saturation 10(L) 20 - 50 % [facility] Blood 04/24/2024 5:32 AM CDT 04/24/2024 10:07 AM CDT Zahira Vu MD LAB BLOOD ORDERABLES Final Re sult Performing Organization Address City/[facility]/ZIP Co de Phone Number ESTRELLA FRAGA [address] Department [place] [address] * (ABNORMAL) CBC with auto differential (04/24/2024 5:32 AM CDT) WBC 12.5(H) 3.8 - 9.9 K/cumm Hgb 9.4(L) 11.9 - 15.5 g/dL [facility] Hct 29.7(L) 35.6 - 45.5 % [facility] Plt 543(H) 150 - 400 K/cumm [facility] MPV 9.6 9.1 - 12.3 fL [facility] RBC 3.70(L) 3.90 - 5.20 M/cumm [facility] MCV 80.3(L) 81.3 - 96.4 fL [facility] MCH 25.4(L) 27.1 - 33.3 pg [facility] MCHC 31.6(L) 32.3 - 35.7 g/dL [facility] RDW CV 16.0(H) 11.1 - 14.9 % [facility] RDW SD 46.5 35.7 - 48.1 fL [facility] NRBC abs 0.00 0.00 - 0.01 K/cumm [facility] Blood 04/24/2024 5:32 AM CDT 04/24/2024 5:37 AM CDT [facility] [employer] OPERATOR LAB BLOOD ORDERABLES Fi nal Result Performing Organization Address [facility] de Phone Number ESTRELLA [address] [facility] [facility] [place] [address] * (ABNORMAL) aPTT (04/24/2024 5:32 AM CDT) aPTT >150(C) 28 - 38 sec Comment: Critical result called to and read back by Lourdes Tello on 04/24/2024 06:12:38 CDT to Nikko Eldridge. Interpretive Data Heparin therapeutic range: 66.0 - 100.0 seconds. Range based on correlation with therapeutic heparin activity range of 0.3 - 0.7 Units/mL. Current interpretive data was last revised on 2022. Blood 04/24/2024 5:32 AM CDT 04/24/2024 5:37 AM CDT [facility] WE[employer]ING [employer]ATION OPERATOR LAB BLOOD ORDERABLES Fi nal Result Performing Organization Address [facility] de Phone Number ROGELIORIOS [address] [facility] [place] [address] * (ABNORMAL) Protime-INR (04/24/2024 5:32 AM CDT) PT 13.9(H) 9.7 - 13.0 sec INR 1.28(H) 0.90 - 1.20 [facility] Comment: Interpretive data Oral anticoagulant therapeutic ranges: Venous thromboembolism prophylaxis or treatment: 2.0-3.0 CARDIOLOGY Standard range: 2.0-3.0 High-intensity range: 2.5-3.5 Refer to indication-specific guidelines for appropriate target ranges for prosthetic heart valve replacement. Current interpretive data was last revised on 2019. Blood 04/24/2024 5:32 AM CDT 04/24/2024 5:37 AM CDT Brooke Lazo Carlo [employer] OPERATOR LAB BLOOD ORDERABLES Fi nal Result [facility] FR[facility]A [address] [place] [address] * (ABNORMAL) Ferritin (04/24/2024 5:32 AM CDT) Ferritin 1,053(H) 15 - 150 ng/mL Blood 04/24/2024 5:32 AM CDT 04/24/2024 10:07 AM CDT Zahira Vu MD LAB BLOOD ORDERABLES Final Re sult Performing Organization Address [facility] Co de Phone Number ESTRELLA FRAGA [address] Department [place] [address] * (ABNORMAL) Comprehensive metabolic panel (04/24/2024 5:32 AM CDT) Sodium 138 135 - 145 mmol/L Potassium, pl 4.2 3.3 - 4.9 mmol/L [facility] Chloride 98 97 - 110 mmol/[facility] CO[facility] 24 22 - 32 mmol/L [facility] Anion gap 16(H) 2 - 15 mmol/L [facility] BUN 17 6 - 25 mg/dL [facility] Creatinine 1.12(H) 0.60 - 1.10 mg/dL [facility] Glucose 120 70 - 199 mg/dL [facility] Comment: Interpretive Data Fasting glucose >/= 126 mg/dl is diagnostic for diabetes. Fasting is defined as no caloric intake for at least 8 hours. Fasting glucose between 100 mg/dl to 125 mg/dl is diagnostic of prediabetes. In a patient with classic symptoms of hyperglycemia or hyperglycemic crisis, a random glucose >/= 200 mg/dl is diagnostic for diabetes. In the absence of unequivocal hyperglycemia, results should be confirmed by repeat testing. The classification and Diagnosis of Diabetes Diabetes Care 2021; 46: S19-S40. Current interpretive data was last revised 2022. Calcium 9.7 8.5 - 10.3 mg/dL [facility] Bilirubin, total 0.4 0.1 - 1.2 mg/dL [facility] Protein, pl 7.8 6.5 - 8.5 g/dL [facility] Albumin 3.8 3.5 - 5.0 g/dL [facility] Alk phos 200(H) 40 - 130 Units/L [facility] ALT 61(H) 7 - 45 Units/L [facility] AST 36 10 - 45 Units/L [facility] Blood 04/24/2024 5:32 AM CDT 04/24/2024 5:37 AM CDT Brooke Matos WE[employer]ING [employer]ATION OPERATOR LAB BLOOD ORDERABLES Fi nal Result [facility] [address] Department [place] [address] * eGFR (04/23/2024 8:08 PM CDT) eGFR 66 >=60 mL/min/1. 73 m2 Comment: Interpretive Data Reference Interval Normal >/= 90 mL/min/1.73m2 Mildly decreased* 60 - 89 mL/min/1.73m2 Mildly to moderately decreased 45 - 59 mL/min/1.73m2 Moderately to severely decreased 30 - 44 mL/min/1.73m2 Severely decreased 15 - 29 mL/min/1.73m2 Kidney Failure < 15 mL/min/1.73m2 *Relative to young adult level Estimated glomerular filtration rate is determined by the 2020 CKD-EPI equation recommended by the National Kidney Foundation (A Unifying Approach to GFR Estimation: Recommendations of the NKF-ASK Task Force on Reassessing the Inclusion of Race in Diagnosing Kidney Disease, JASN 2020). The CKD-EPI equation should not be used for patients with unstable renal function and has not been validated in children and those over 70. Current interpretive data was last reviewed 2020. Blood 04/23/2024 8:08 PM CDT 04/23/2024 8:13 PM CDT Jeovanny Caro MD LAB BLOOD ORDERABLES Final Result [facility] [address] Department [place] [address] * (ABNORMAL) Differential, auto (04/23/2024 8:08 PM CDT) Neutrophil abs 10.4(H) 1.5 - 6.5 K/cumm Imm gran abs 0.1 0.0 - 0.1 K/cumm [facility] Lymphocyte abs 1.7 0.8 - 3.3 K/cumm [facility] Monocyte abs 0.5 0.2 - 0.8 K/cumm [facility] Eosinophil abs 0.2 0.0 - 0.5 K/cumm [facility] Basophil abs 0.0 0.0 - 0.1 K/cumm [facility] Neutrophil pct 80.5 % [facility] Comment: Interpretive Data Percent cell count reference ranges are not reported, since discordance with absolute values may lead to misinterpretation of CBC data. Current Interpretive Data was last revised on 2017. Imm gran pct 0.9 % [facility] Comment: Interpretive Data Percent cell count reference ranges are not reported, since discordance with absolute values may lead to misinterpretation of CBC data. Current Interpretive Data was last revised on 2017. Lymphocyte pct 12.9 % [facility] Comment: Interpretive Data Percent cell count reference ranges are not reported, since discordance with absolute values may lead to misinterpretation of CBC data. Current Interpretive Data was last revised on 2017. Monocyte pct 3.9 % [facility] Comment: Interpretive Data Percent cell count reference ranges are not reported, since discordance with absolute values may lead to misinterpretation of CBC data. Current Interpretive Data was last revised on 2017. Eosinophil pct 1.6 % [facility] Comment: Interpretive Data Percent cell count reference ranges are not reported, since discordance with absolute values may lead to misinterpretation of CBC data. Current Interpretive Data was last revised on 2017. Basophil pct 0.2 % [facility] Comment: Interpretive Data Percent cell count reference ranges are not reported, since discordance with absolute values may lead to misinterpretation of CBC data. Current Interpretive Data was last revised on 2017. Blood 04/23/2024 8:08 PM CDT 04/23/2024 8:13 PM CDT Jeovanny Caro MD LAB BLOOD ORDERABLES Final Result Performing Organization Address City/[facility]/ZIP Co de Phone Number ESTRELLA FRAGA [address] [place] [address] * (ABNORMAL) CBC with auto differential (04/23/2024 8:08 PM CDT) WBC 13.0(H) 3.8 - 9.9 K/cumm Hgb 8.9(L) 11.9 - 15.5 g/dL [facility] Hct 29.6(L) 35.6 - 45.5 % [facility] Plt 537(H) 150 - 400 K/cumm [facility] MPV 9.7 9.1 - 12.3 fL [facility] RBC 3.61(L) 3.90 - 5.20 M/cumm [facility] MCV 82.0 81.3 - 96.4 fL [facility] MCH 24.7(L) 27.1 - 33.3 pg [facility] MCHC 30.1(L) 32.3 - 35.7 g/dL [facility] RDW CV 16.1(H) 11.1 - 14.9 % [facility] RDW SD 48.2(H) 35.7 - 48.1 fL [facility] NRBC abs 0.00 0.00 - 0.01 K/cumm [facility] Blood 04/23/2024 8:08 PM CDT 04/23/2024 8:13 PM CDT Jeovanny Caro MD LAB BLOOD ORDERABLES Final Result Performing Organization Address City/[facility]/ZIP Co de Phone Number ESTRELLA FRAGA [address] Department of [employer] [place], [place] [id number] * (ABNORMAL) Lipase (04/23/2024 8:08 PM CDT) Lipase 162(H) 10 - 99 Units/L Blood 04/23/2024 8:08 PM CDT 04/23/2024 8:13 PM CDT Jeovanny Caro MD LAB [place]LOOD [place] [address] [address] [place] [address] * (ABNORMAL) Comprehensive metabolic panel (04/23/2024 8:08 PM CDT) Sodium 135 135 - 145 mmol/L Potassium, pl 3.8 3.3 - 4.9 mmol/L [facility] Chloride 97 97 - 110 mmol/L [facility] CO2 22 22 - 32 mmol/L [facility] Anion gap 16(H) 2 - 15 mmol/L [facility] BUN 18 6 - 25 mg/dL [facility] Creatinine 1.15(H) 0.60 - 1.10 mg/dL [facility] Glucose 158 70 - 199 mg/dL [facility] Comment: Interpretive Data Fasting glucose >/= 126 mg/dl is diagnostic for diabetes. Fasting is defined as no caloric intake for at least 8 hours. Fasting glucose between 100 mg/dl to 125 mg/dl is diagnostic of prediabetes. In a patient with classic symptoms of hyperglycemia or hyperglycemic crisis, a random glucose >/= 200 mg/dl is diagnostic for diabetes. In the absence of unequivocal hyperglycemia, results should be confirmed by repeat testing. The classification and Diagnosis of Diabetes Diabetes Care 202; 46: S19-S40. Current interpretive data was last revised 2022. Calcium 9.5 8.5 - 10.3 mg/dL [facility] Bilirubin, total 0.4 0.1 - 1.2 mg/dL [facility] Protein, pl 7.5 6.5 - 8.5 g/dL [facility] Albumin 3.5 3.5 - 5.0 g/dL [facility] Alk phos 185(H) 40 - 130 Units/L [facility] ALT 57(H) 7 - 45 Units/L [facility] AST 36 10 - 45 Units/L [facility] Blood 04/23/2024 8:08 PM CDT 04/23/2024 8:13 PM CDT Jeovanny Caro MD LAB BLOOD ORDERABLES Final Result ESTRE[facility] [address] Department [place] [address] from Last 3 Months Insurance [facility] CHOICE PLUS IDPA [facility] CHOICE PLUS Advance Directives For more information, please contact: [phone] * Full Code (Latest Code Status on File) Date Activated Date Inactivated Comments 04/23/2024 7:25 PM 04/25/2024 11:00 PM Care Teams Simulation Engineer Relationship Specialty Start Date End Date Sondra Shabazz MD [address] [place] [address] PCP - General Family Medicine 05/18/24 Unknown, Notinfile 04/25/24 [place] [address] [place] [address] Surgeon General Surgery 04/25/24
--- OUTSIDE RECORDS SUMMARY | 2024-07-16 23:06 | XMS_ITS | CONTINUITY OF CARE DOCUMENT ---
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 Role Phone Anival DOMINGUEZ, Radha Unavailable BORIS MCDONALD MD Unavailable [phone] PROBLEMS Condition Status Date Provider Notes Obesity [...] - Radha Florian MD Snoring completed - Radha Florian MD VICENTA--mild, attempting weight loss active Radha Florian MD ENCOUNTERS Date Type Provider Location Encounter Diag nosis - In-person encounter Office Visit Radha Florian MD [facility] - In-person encounter Office Visit Radha Florian MD [facility] - In-person encounter Office Visit Radha Florian MD [facility] - In-person encounter Office Visit Radha Florian MD [facility] Chest pain--calcium score zero, yspnea on exertion-- Echo EF 66%, mild TR, PASP 31 mmhg, 10/2021Fast pulseSnoringOSA--mi ld, attempting weight loss - In-person encounter Office Visit Radha Florian MD [facility] Family hx of CADChest pain--calcium score zero, yspnea on exertion-- Echo EF 66%, mild TR, PASP 31 mmhg, IZZINESS VITAL SIGNS Date Observation Value Provider Body Mass Index (Ratio) 29.93 kg/m2 John Florian MD blood pressure, cuff size regular rret blood pressure, diastolic 74 mm[Hg] Ja rret blood pressure, systolic 112 mm[Hg] Jar ret pulse rate 85 /min [facility] oxygen saturation, oximetry 99 % [place] respiratory rate E&M 14 /min [facility] weight E&M 169 [lb_av] [facility] y height E&M 63 [in_i] [facility] y Body Mass Index (Ratio) 31.00 kg/m2 John Florian MD blood pressure, diastolic 71 mm[Hg] Faith nkLogic blood pressure, systolic 101 mm[Hg] Georgette kLogic blood pressure, cuff size regular Ja rret blood pressure, diastolic 71 mm[Hg] Ja rret blood pressure, systolic 101 mm[Hg] Jar ret pulse rate 93 /min [facility] y oxygen saturation, oximetry 98 % [place] respiratory rate E&M 12 /min [facility] weight E&M 175 [lb_av] [place] y [...] sertraline 50 mg tablet active Sol Ventimiglia PROGRAM ASSISTANT omega [id number]-avh-buq-fish oil 1,000 mg (120 mg-180 mg) capsule completed Take 1 capsule by mouth once a day - 9 Sol Ventimiglia PROGRAM ASSISTANT SOCIAL HISTORY Date Observation Value Provider drug use no Zack Astorga alcohol use no Zack Astorga smoking status Never smoker Zack Astorga drug use no Sol Ventimig kaylin PROGRAM ASSISTANT alcohol use no Sol Ventimig kaylin PROGRAM ASSISTANT smoking status Never smoker Sol Ventim iglia PROGRAM ASSISTANT social history reviewed E&M revi ewed - [...] revi ewed - no changes required Sylvia hCavez social history E&M S moking History: Narcisa wan has never smoked. Sylvia Chavez smoking status Never smoker Aleena Santo villagomez FAMILY HISTORY Family Member Condition Mother Family History of Co ronary Artery Disease: Father Family History of Co ronary Artery Disease: INSURANCE PROVIDERS Payer name Policy type / Coverage type Vanessa red green party ID [employer] 9 [id number] ADVANCE DIRECTIVES Name Date DISCUSSED - NO DECISION MADE TREATMENT PLAN Date Name Performer [id number],S, Radha Florian MD [id number],S, Radha Florian MD [id number],S, Radha Florian MD [id number],C,LDL 164 Jayde Florian MD [id number],S, Sol Venti miglia [facility] [id number],B,H as lost 18lbs since last visit. Will renew phentermine Sol Ventimiglia [facility] [id number],S,update lipid panel Sol Ventimiglia [facility] [id number],C,will update l abs Sol Ventimiglia [facility] [id number],S,H as noted more often unclear if related to iron deficiency or medication. We will update labs. We will also have her cut her zoloft dose back. She was encouraged to remain well hydrated. EKG NSR today. Will f/u in one month or sooner if needed. Sol Ventimiglia [facility] [id number],S, Zack Ahmedza i [id number],S, Zack Ahmedza i [id number],S, Zack Ahmedza i [id number],S, Zack Ahmedza i [id number],W, Radha Florian MD [id number],S, Radha Florian MD [id number],W, Radha Florian MD [id number],S, Radha Florian MD Cardiology Zack Astorga Cardiology Zack Ahmedzai Cardiology Zack Ahmedzai Cardiology Zack Ahmedzai Cardiology Zack Ahmedzai Telehealth Radha Florian MD Telehealth Radha Florian MD Telehealth Radha Florian MD Telehealth:LDL 164 Radha Florian MD Cardiology Sol Ventimigl ia PROGRAM ASSISTANT Cardiology:Has lost 18lbs since last visit. Will renew phentermine Sol Ventimiglia PROGRAM ASSISTANT Cardiology:update lipid panel Am belkis Ventimiglia PROGRAM ASSISTANT Cardiology:will update labs Martir da Ventimiglia PROGRAM ASSISTANT Cardiology:Has noted more often unclear if related to iron deficiency or medication. We will update labs. We will also have her cut her zoloft dose back. She was encouraged to remain well hydrated. EKG NSR today. Will f/u in one month or sooner if needed. Sol Ventimiglia PROGRAM ASSISTANT Cardiology Zack Ahmedzai Cardiology Zack Ahmedzai Cardiology Zakc Ahmedzai Cardiology Zack Ahmedzai Cardiology Radha Florian [...]
--- OUTSIDE RECORDS SUMMARY | 2024-07-16 23:06 | XMS_ITS | Referral Summary ---
Author Organization [facility] Address [address] [place] [address] Care Team Providers Care Manufacturing Maintenance Manager Name Role Phone Unknown, Notinfile Unavailable Unavailable Karan Martinez MD Unavailable [phone] Sondra Shabazz MD Primary Care Provider Encounters Date Type Department Care Team Description 06/21/2024 10:15 AM CDT Lab [facility] [place] - Lab Collection [address] [place] [address] Prolonged PTT 06/21/2024 10:00 AM CDT Lab [facility] Oncology Lab [address] [place] [phone] 06/21/2024 9:00 AM CDT Office Visit [facility] Hematology [address] [place] [phone] Rosalva Reese MD Prolonged PTT (Primary Dx); Calculus of gallbladder with cholecystitis without biliary obstruction, unspecified cholecystitis acuity; Menorrhagia with regular cycle; Factor XII deficiency (HCC) 06/14/2024 Telephone [facility] Hematology [address] [place] [address] 6 [place] [phone] Lucille Caroline 05/31/2024 Orders Only [facility] Hematology [address] [facility] Advanced Medicine 7th [place] [address] [place] [phone] Nitin Rosenthal NP Calculus of gallbladder with cholecystitis without biliary obstruction, unspecified cholecystitis acuity (Primary Dx) 05/31/2024 2:20 PM CDT Anesthesia Event [facility] Operating Room [address] [place] [phone] Phil Garrison DO Barnhart, Lynlee Jo, NP 05/31/2024 5:31 AM CDT - 05/31/2024 9:55 AM CDT Hospital Encounter [facility] Operating Room [address] [place] [phone] Karan Martinez MD Discharge Disposition: Discharge to home or self care 05/25/2024 12:35 PM CDT Lab [address] [address] Gallstone pancreatitis 05/23/2024 Orders Only [facility] Surgery [address] [place] [address] [place] [phone] Karan Martinez MD Gallstone pancreatitis (Primary Dx) 05/18/2024 9:45 AM CDT Office Visit [facility] Surgery [address] [place] [phone] Karan Martinez MD Gallstone pancreatitis 05/13/2024 Documentation [facility] Medical Group Primary Care at [facility] - [address] [place] [phone] Rylee Duffy MA 04/26/2024 [facility] Post Discharge Follow up phone call [facility] Non-Oncology Infusion [address] [place] [phone] Azul Cunha RN 04/23/2024 3:16 PM CDT - 04/25/2024 6:45 PM CDT Hospital Encounter [facility] Oncology [address] [place] [address] Jeovanny Caro MD Rudomiotov, Olga, MD Gallstone pancreatitis (Primary Dx) Discharge Disposition: Discharge to home or self care from Last 3 Months Allergies Active Allergy Reactions Criticality Noted Date Comments Alprazolam Hives Medium 04/23/2024 Medications sertraline (ZOLOFT) 50 mg tablet Take 1 tablet (50 mg total) by mouth every morning Active acetaminophen (TYLENOL) 325 mg tablet Take 2 tablets (650 mg total) by mouth every 6 (six) hours as needed for pain Active traMADoL (ULTRAM) 50 mg tabletIndicatio ns:Pain Take 1 tablet (50 mg total) by mouth every 8 (eight) hours as needed for pain 20 tablet 1 Active Additional Information Patient not taking.Informant: Self, Reported on 06/21/2024 medroxyPROGESTE Francis (DEPO-PROVERA) 150 mg/mL injection Inject 1 mL (150 mg total) into the muscle as instructed every 3 (three) months Active Active Problems Problem Noted Date Diagnosed Date 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 Acute biliary pancreatitis 05/18/2024 Gallstone pancreatitis 04/25/2024 Abdominal pain 04/23/2024 Obstructive sleep apnea (adult) (pediatric) 12/11 Other forms of dyspnea 10/16/2021 Anemia 10/15/2021 Hyperlipidemia 10/15/2021 Obesity 10/15/2021 Social History Tobacco Use Types Packs/Day Years Used Date Smoking Tobacco: Never Passive Smoke Exposure: Never Smokeless Tobacco: Never Tobacco Cessation:Counseling Given: Not Answered [facility] Access UKities Answer Date Recorded In the past 12 months has e [employer], gas, oil, or water [email or web address] threatened to shut off services in your [...] week 04/25/2024 How often do you attend chur ch or orthodox services? Never 04/25/2024 Do you belong to any clubs o r organizations such as anabaptism groups, unions, fraternal or athletic groups, or [...] any time in the past 12 m [facility], were you homeless or living in a correction (including now)? No 04/25/2024 Personal Safety Answer [...] on file Sexual Orientation Not on file Last Filed Vital Signs Vital Sign Reading [...] 06/21/2024 8:46 AM CDT Plan of Treatment Not on file Procedures Procedure Name Priority Date/Time Associated Diagnosis [...] 13.0 sec INR 1.01 0.90 - 1.20 [facility] Comment: Interpretive data Oral anticoagulant therapeutic ranges: Venous thromboembolism prophylaxis or treatment: 2.0-3.0 CARDIOLOGY Standard range: 2.0-3.0 High-intensity range: 2.5-3.5 Refer to indication-specific guidelines for appropriate target ranges for prosthetic heart valve replacement. Current interpretive data was last revised on 2019. aPTT >150(C) 28 - 38 sec [facility] Comment: Repeated and verified. No clot detected in sample. Interpretive Data Heparin therapeutic range: 66.0 - 100.0 seconds. Range based on correlation with therapeutic heparin activity range of 0.3 - 0.7 Units/mL. Current interpretive data was last revised on 2022. Thrombin Time 13.40 10.00 - 15.00 sec [facility] DRVVT screen ratio 1.14 0.00 - 1.20 Ratio [facility] DRVVT confirm ratio 1.06 Ratio [facility] DRVVT S/C Ratio 1.08 0.00 - 1.20 Ratio [facility] DRVVT 50:50 Mix Ratio 1.13 0.00 - 1.20 Ratio [facility] SCT Screen Ratio See Comment 0.00 - 1.16 Ratio [facility] Comment:Sample did not clot, unable to generate ratio. SCT Confirm Ratio See Comment Ratio [facility] Comment:Sample did not clot, unable to generate ratio. SCT S/C Ratio See Comment 0.00 - 1.16 Ratio [facility] Comment:Sample did not clot, unable to generate ratio. SCT 50:50 Mix Ratio 1.24(H) 0.00 - 1.16 Ratio [facility] Lupus anticoagulant, interp Negative [facility] Comment: Interpretive data Lupus anticoagulants ([place]) [...] IV anticoagulants other than heparin. References: 1) Taye V, Olivia A, Gibsonia JH, Orbethany TL, Ana M, De Nilo PG. Update of the guidelines for lupus anticoagulant detection. J Thromb Haemost. 2009; 7:7311-3941. 2. Jami S. et al. International consensus statement on an update of the classification criteria for definite antiphospholipid syndrome (APS). J Thromb Haemost. 2006; 4:295-306. Current interpretive data was last revised on 2017 Blood 06/21/2024 10:1 5 AM CDT 06/21/2024 10:51 AM CDT Rosalva Reese MD LAB BLOOD ORDERABLES Final Result [facility] [place] [address] * Critical Result Callback Hematology (06/21/2024 10:15 AM CDT) Date Notified 20240621 Time Notified 1204 ESTRELLA [facility] TestName aPTT [facility] Called/Read Back Charlotte DE LA ROSA [facility] Credentials RN ESTRELLA [facility] Called By SB ESTRELLA [facility] Blood 06/21/2024 10:1 5 AM CDT 06/21/2024 10:51 AM CDT Rosalva Reese MD LAB BLOOD ORDERABLES Final Result Performing Organization Address City/[facility] Co de Phone Number [facility] [place] [place] [address] * Critical Result Callback Hematology (06/21/2024 10:15 AM CDT) Date Notified 20240621 Time Notified 1204 ESTRELLA [facility] TestName aPTT [facility] Called/Read Back Charlotte DE LA ROSA [facility] Credentials RN ESTRELLA [facility] Called By SB [facility] Blood 06/21/2024 10:1 5 AM CDT 06/21/2024 10:51 AM CDT Rosalva Reese MD LAB BLOOD ORDERABLES Final Result Performing Organization Address City/[facility]/ZIP Co de Phone Number [facility] [place] [place] [address] * (ABNORMAL) aPTT mixing study (06/21/2024 10:15 AM CDT) aPTT >150(C) 28 - 38 sec Comment: Consistent with PTT order result. Interpretive Data Heparin therapeutic range: 66.0 - 100.0 seconds. Range based on correlation with therapeutic heparin activity range of 0.3 - 0.7 Units/mL. Current interpretive data was last revised on 2022. aPTT, 50/50 mix 34 28 - 38 sec [facility] Comment: Interpretive data Evaluating an unexpected prolonged [...] Reese MD LAB BLOOD ORDERABLES Final Result ESTRELLA [facility] Department [place] [address] * PT mixing study (06/21/2024 10:15 AM CDT) Pathologist [facility] PT 10.4 9.7 - 13.0 sec INR 0.96 0.90 - 1.20 [facility] Comment: Interpretive data Oral anticoagulant therapeutic ranges: Venous thromboembolism prophylaxis or treatment: 2.0-3.0 CARDIOLOGY Standard range: 2.0-3.0 High-intensity range: 2.5-3.5 Refer to indication-specific guidelines for appropriate target ranges for prosthetic heart valve replacement. Current interpretive data was last revised on 2019. PT, 50/50 mix See Comment 9.7 - 13.0 sec [facility] Comment: Credited, test not indicated. Interpretive data [...] 50/50 mix See Comment 0.90 - 1.20 [facility] Comment:Credited, test not i ndicated. Blood 06/21/2024 10:1 5 AM CDT 06/21/2024 10:51 AM CDT us Rosalva Reese MD LAB BLOOD ORDERABLES Final Result [facility] Department [place] [address] * (ABNORMAL) aPTT (06/21/2024 10:15 AM CDT) aPTT >150(C) 28 - 38 sec Comment: No clot detected in sample Repeated and verified - [id number] - 5/13/25, 11:50 AM Interpretive Data Heparin therapeutic range: 66.0 - 100.0 seconds. Range based on correlation with therapeutic heparin activity range of 0.3 - 0.7 Units/mL. Current interpretive data was last revised on 2022. Blood 06/21/2024 10:1 5 AM CDT 06/21/2024 10:51 AM CDT Rosalva Reese MD LAB BLOOD ORDERABLES Final Result Performing Organization Address [facility] de Phone Number [facility] [place] [place] [address] * Protime-INR (06/21/2024 10:15 AM CDT) PT 10.4 9.7 - 13.0 sec INR 0.96 0.90 - 1.20 [facility] Comment: Interpretive data Oral anticoagulant therapeutic ranges: Venous thromboembolism prophylaxis or treatment: 2.0-3.0 CARDIOLOGY Standard range: 2.0-3.0 High-intensity range: 2.5-3.5 Refer to indication-specific guidelines for appropriate target ranges for prosthetic heart valve replacement. Current interpretive data was last revised on 2019. Blood 06/21/2024 10:1 5 AM CDT 06/21/2024 10:51 AM CDT Rosalva Reese MD LAB BLOOD ORDERABLES Final Result Performing Organization Address [facility] de Phone Number [facility] [place] [place] [address] * (ABNORMAL) Factor XII activity (06/21/2024 10:15 AM CDT) Factor XII activity 3(L) 45 - 170 %norm Blood 06/21/2024 10:1 5 AM CDT 06/21/2024 10:51 AM CDT Rosalva Reese MD LAB BLOOD ORDERABLES Final Result Performing Organization Address [facility] [place] [address] * Factor XI activity (06/21/2024 10:15 AM CDT) Factor XI activity 131 60 - 140 %norm Blood 06/21/2024 10:1 5 AM CDT 06/21/2024 10:51 AM CDT us Rosalva Reese MD LAB BLOOD ORDERABLES Final Result Performing Organization Address [facility] [place] [address] * Factor IX activity (06/21/2024 10:15 AM CDT) Factor IX activity 148 55 - 160 %norm Blood 06/21/2024 10:1 5 AM CDT 06/21/2024 10:51 AM CDT us Rosalva Reese MD LAB BLOOD ORDERABLES Final Result Performing Organization Address [facility] [place] [address] * (ABNORMAL) Factor VIII activity (06/21/2024 10:15 AM CDT) Factor VIII activity 190(H) 45 - 160 %norm Blood 06/21/2024 10:1 5 AM CDT 06/21/2024 10:51 AM CDT Rosalva Reese MD LAB BLOOD ORDERABLES Final Result Performing Organization Address [facility] Co de Phone Number [facility] [place] [address] * (ABNORMAL) aPTT (05/31/2024 8:49 AM CDT) [...] was last revised on 2022. Blood 05/31/2024 8:49 AM CDT 05/31/2024 8:50 AM CDT Matthew Ybarra MD LAB BLOOD ORDERABLES Final Result Performing Organization Address [facility] de Phone Number [facility] [address] [place] [address] * Protime-INR (05/31/2024 7:54 AM CDT) Pathologist [facility] PT 11.4 9.7 - 13.0 sec INR 1.05 0.90 - 1.20 [facility] Comment: Interpretive data Oral anticoagulant therapeutic ranges: Venous thromboembolism prophylaxis or treatment: 2.0-3.0 CARDIOLOGY Standard range: 2.0-3.0 High-intensity range: 2.5-3.5 Refer to indication-specific guidelines for appropriate target ranges for prosthetic heart valve replacement. Current interpretive data was last revised on 2019. Blood 05/31/2024 7:54 AM CDT 05/31/2024 7:54 AM CDT Matthew Ybarra MD LAB BLOOD ORDERABLES Final Result Performing Organization Address City/[facility] Co de Phone Number [facility] [address] [facility] [address] [place], [place] [phone] * POCT hCG, urine (05/31/2024 7:00 AM CDT) HCG, ur, POC Negative Negative Lot Number [id number] QC Backgroud Clear Acceptable QC Control Line Acceptable Urine 05/31/2024 7:00 AM CDT us Karan Martinez MD POINT OF CARE TEST ORDERAB LES Final Result * Differential, auto (05/25/2024 12:55 PM CDT) Neutrophil abs 4.80 1.50 - 6.50 K/cumm Imm gran abs 0.02 0.00 - 0.10 K/cumm [facility] Lymphocyte abs 2.10 0.80 - 3.30 K/cumm [facility] Monocyte abs 0.34 0.20 - 0.80 K/cumm [facility] Eosinophil abs 0.13 0.00 - 0.50 K/cumm [facility] Basophil abs 0.02 0.00 - 0.10 K/cumm [facility] Neutrophil pct 64.7 % [facility] Comment: Interpretive Data Percent cell count reference ranges are not reported, since discordance with absolute values may lead to misinterpretation of CBC data. Current Interpretive Data was last revised on 2017. Imm gran pct 0.3 % [facility] Comment: Interpretive Data Percent cell count reference ranges are not reported, since discordance with absolute values may lead to misinterpretation of CBC data. Current Interpretive Data was last revised on 2017. Lymphocyte pct 28.3 % [facility] Comment: Interpretive Data Percent cell count reference ranges are not reported, since discordance with absolute values may lead to misinterpretation of CBC data. Current Interpretive Data was last revised on 2017. Monocyte pct 4.6 % [facility] Comment: Interpretive Data Percent cell [...] BLOOD ORDERABLES Final Result Performing Organization Address City/[facility]/ZIP Co de Phone Number ESTRELLA [address] [place], [place] [phone] * (ABNORMAL) CBC with auto differential (05/25/2024 12:55 PM CDT) WBC 7.41 3.80 - 9.90 K/cumm Hgb 12.0 11.9 - 15.5 g/dL [facility] Hct 39.0 35.6 - 45.5 % [facility] Plt 270 150 - 400 K/cumm [facility] MPV 10.2 9.1 - 12.3 fL [facility] RBC 4.80 3.90 - 5.20 M/cumm [facility] MCV 81.3 81.3 - 96.4 fL [facility] MCH 25.0(L) 27.1 - 33.3 pg [facility] MCHC 30.8(L) 32.3 - 35.7 g/dL [facility] RDW CV 16.0(H) 11.1 - 14.9 % [facility] RDW SD 47.8 35.7 - 48.1 fL [facility] NRBC abs 0.00 0.00 - 0.01 K/cumm [facility] Blood 05/25/2024 12:5 5 PM CDT 05/25/2024 12:55 PM CDT us Karan Martinez MD LAB BLOOD ORDERABLES Final Result Performing Organization Address City/[facility]/ZIP Co de Phone Number [facility] [address] [place], [place] [phone] * eGFR (05/25/2024 12:54 PM CDT) eGFR [...] 4 PM CDT 05/25/2024 12:54 PM CDT Karan Martinez MD LAB BLOOD ORDERABLES Final Result [facility] [address] Department of Laboratories [place], [place] [phone] * (ABNORMAL) Comprehensive metabolic panel (05/25/2024 12:54 PM CDT) Sodium 137 135 - 145 mmol/L Potassium, pl 4.1 3.3 - 4.9 mmol/L [facility] Chloride 103 97 - 110 mmol/L [facility] CO2 22 22 - 32 mmol/L [facility] Anion gap 12 2 - 15 mmol/L [facility] BUN 12 6 - 25 mg/dL [facility] Creatinine 0.71 0.60 - 1.10 mg/dL [facility] Glucose 87 70 - 199 mg/dL [facility] Comment: Interpretive Data Fasting glucose >/= 126 [...] 4 PM CDT 05/25/2024 12:54 PM CDT Karan Martinez MD LAB BLOOD ORDERABLES Final Result [facility] [address] Department [place] [address] * eGFR (04/25/2024 4:59 AM CDT) eGFR [...] CDT 04/25/2024 4:59 AM CDT Brooke Matos DOOR SERVICEMAN LAB BLOOD ORDERABLES [facility] [place] [address] [address] Department [place] [address] * (ABNORMAL) Comprehensive metabolic panel (04/25/2024 4:59 AM CDT) Pathologist [facility] Sodium 138 135 - 145 mmol/L Potassium, pl 4.0 3.3 - 4.9 mmol/L [facility] Chloride 101 97 - 110 mmol/L [facility] CO2 24 22 - 32 mmol/L [facility] Anion gap 13 2 - 15 mmol/L [facility] BUN 14 6 - 25 mg/dL [facility] Creatinine 1.09 0.60 - 1.10 mg/dL [facility] Glucose 107 70 - 199 mg/dL [facility] Comment: [...] CDT 04/25/2024 4:59 AM CDT Brooke Matos DOOR SERVICEMAN LAB BLOOD ORDERABLES Fi nal Result [facility] [address] Department [place] [address] * (ABNORMAL) Differential, auto (04/25/2024 4:58 AM CDT) Neutrophil abs 8.2(H) 1.5 - 6.5 K/cumm Imm gran abs 0.1 0.0 - 0.1 K/cumm [facility] Lymphocyte abs 1.6 0.8 - 3.3 K/cumm [facility] Monocyte abs 0.4 0.2 - 0.8 K/cumm [facility] Eosinophil abs 0.2 0.0 - 0.5 K/cumm [facility] Basophil abs 0.0 0.0 - 0.1 K/cumm [facility] Neutrophil pct 78.2 % [facility] Comment: Interpretive Data Percent cell count reference ranges are not reported, since discordance with absolute values may lead to misinterpretation of CBC data. Current Interpretive Data was last revised on 2017. Imm gran pct 0.8 % [facility] Comment: Interpretive Data Percent cell count reference ranges are not reported, since discordance with absolute values may lead to misinterpretation of CBC data. Current Interpretive Data was last revised on 2017. Lymphocyte pct 14.8 % [facility] Comment: Interpretive Data Percent cell count reference ranges are not reported, since discordance with absolute values may lead to misinterpretation of CBC data. Current Interpretive Data was last revised on 2017. Monocyte pct 4.1 % [facility] Comment: Interpretive Data Percent cell count reference ranges are not reported, since discordance with absolute values may lead to misinterpretation of CBC data. Current Interpretive Data was last revised on 2017. Eosinophil pct 1.8 % [facility] Comment: Interpretive Data Percent cell count reference ranges are not reported, since discordance with absolute values may lead to misinterpretation of CBC data. Current Interpretive Data was last revised on 2017. Basophil pct 0.3 % [facility] Comment: Interpretive Data Percent cell count reference ranges are not reported, since discordance with absolute values may lead to misinterpretation of CBC data. Current Interpretive Data was last revised on 2017. Blood 04/25/2024 4:58 AM CDT 04/25/2024 4:58 AM CDT [facility] DOOR SERVICEMAN LAB BLOOD ORDERABLES Fi nal Result Performing Organization Address City/[facility]/ZIP Co de Phone Number ESTRELLA [address] [place] [address] * (ABNORMAL) CBC with auto differential (04/25/2024 4:58 AM CDT) Pathologist [facility] WBC 10.5(H) 3.8 - 9.9 K/cumm Hgb 8.9(L) 11.9 - 15.5 g/dL [facility] Hct 28.3(L) 35.6 - 45.5 % [facility] Plt 597(H) 150 - 400 K/cumm [facility] MPV 9.1 9.1 - 12.3 fL [facility] RBC 3.54(L) 3.90 - 5.20 M/cumm [facility] MCV 79.9(L) 81.3 - 96.4 fL [facility] MCH 25.1(L) 27.1 - 33.3 pg [facility] MCHC 31.4(L) 32.3 - 35.7 g/dL [facility] RDW CV 15.8(H) 11.1 - 14.9 % [facility] RDW SD 45.9 35.7 - 48.1 fL [facility] NRBC abs 0.00 0.00 - 0.01 K/cumm [facility] Blood 04/25/2024 4:58 AM CDT 04/25/2024 4:58 AM CDT [facility] DOOR SERVICEMAN LAB BLOOD ORDERABLES Fi nal Result Performing Organization Address City/[facility]/ZIP Co de Phone Number ESTRELLA FRAGA [address] Department [employer] [place], [place] [phone] * eGFR (04/24/2024 5:32 AM CDT) Pathologist [facility] eGFR 68 >=60 mL/min/1. 73 m2 Comment: [...] CDT 04/24/2024 5:37 AM CDT Brooke Matos DOOR SERVICEMAN LAB BLOOD ORDERABLES nal Result [facility] [address] [address] Department [place] [address] * (ABNORMAL) Differential, auto (04/24/2024 5:32 AM CDT) Pathologist [facility] Neutrophil abs 10.3(H) 1.5 - 6.5 K/cumm Imm gran abs 0.1 0.0 - 0.1 K/cumm [facility] Lymphocyte abs 1.4 0.8 - 3.3 K/cumm [facility] Monocyte abs 0.5 0.2 - 0.8 K/cumm [facility] Eosinophil abs 0.2 0.0 - 0.5 K/cumm [facility] Basophil abs 0.0 0.0 - 0.1 K/cumm [facility] Neutrophil pct 82.3 % [facility] Comment: Interpretive Data Percent cell count reference ranges are not reported, since discordance with absolute values may lead to misinterpretation of CBC data. Current Interpretive Data was last revised on 2017. Imm gran pct 0.9 % [facility] Comment: Interpretive Data Percent cell count reference ranges are not reported, since discordance with absolute values may lead to misinterpretation of CBC data. Current Interpretive Data was last revised on 2017. Lymphocyte pct 11.4 % [facility] Comment: Interpretive Data Percent cell count reference ranges are not reported, since discordance with absolute values may lead to misinterpretation of CBC data. Current Interpretive Data was last revised on 2017. Monocyte pct 3.9 % [facility] Comment: Interpretive Data Percent cell count reference ranges are not reported, since discordance with absolute values may lead to misinterpretation of CBC data. Current Interpretive Data was last revised on 2017. Eosinophil pct 1.3 % [facility] Comment: Interpretive Data Percent cell count reference ranges are not reported, since discordance with absolute values may lead to misinterpretation of CBC data. Current Interpretive Data was last revised on 2017. Basophil pct 0.2 % [facility] Comment: Interpretive Data Percent cell count reference ranges are not reported, since discordance with absolute values may lead to misinterpretation of CBC data. Current Interpretive Data was last revised on 2017. Blood 04/24/2024 5:32 AM CDT 04/24/2024 5:37 AM CDT us Brooke Matos DOOR SERVICEMAN LAB BLOOD ORDERABLES Fi nal Result [facility] [id number] Department [place] [address] * (ABNORMAL) Iron profile w/ IBC (04/24/2024 5:32 AM CDT) Iron 21(L) 35 - 145 mcg/dl TIBC 219(L) 250 - 400 mcg/dL ESTRELLA Transferrin saturation 10(L) 20 - 50 % ESTRELLA Blood 04/24/2024 5:32 AM CDT 04/24/2024 10:07 AM CDT us Zahira Vu MD LAB BLOOD ORDERABLES Final Re sult Performing Organization Address [facility] Co de Phone Number ESTRELLA FRAGA [address] Department [place] [address] * (ABNORMAL) CBC with auto differential (04/24/2024 5:32 AM CDT) Pathologist [facility] WBC 12.5(H) 3.8 - 9.9 K/cumm Hgb 9.4(L) 11.9 - 15.5 g/dL [facility] Hct 29.7(L) 35.6 - 45.5 % [facility] Plt 543(H) 150 - 400 K/cumm [facility] MPV 9.6 9.1 - 12.3 fL [facility] RBC 3.70(L) 3.90 - 5.20 M/cumm [facility] MCV 80.3(L) 81.3 - 96.4 fL [facility] MCH 25.4(L) 27.1 - 33.3 pg [facility] MCHC 31.6(L) 32.3 - 35.7 g/dL [facility] RDW CV 16.0(H) 11.1 - 14.9 % [facility] RDW SD 46.5 35.7 - 48.1 fL [facility] NRBC abs 0.00 0.00 - 0.01 K/cumm [facility] Blood 04/24/2024 5:32 AM CDT 04/24/2024 5:37 AM CDT Brooke Matos NP LAB BLOOD ORDERABLES Fi nal Result Performing Organization Address [facility]/ZIP Co de Phone Number ESTRELLA FRAGA [address] Department [place] [address] * (ABNORMAL) aPTT (04/24/2024 5:32 AM CDT) [facility] aPTT >150(C) 28 - 38 sec Comment: [...] 5:32 AM CDT 04/24/2024 5:37 AM CDT [facility] DOOR SERVICEMAN LAB BLOOD ORDERABLES Fi nal Result Performing Organization Address [facility] Co de Phone Number ESTRELLA PHILLY [address] [facility] [place] [address] * (ABNORMAL) Protime-INR (04/24/2024 5:32 AM CDT) PT 13.9(H) 9.7 - 13.0 sec INR 1.28(H) 0.90 - 1.20 ESTRELLA FRAGA Comment: Interpretive data Oral anticoagulant therapeutic ranges: Venous thromboembolism prophylaxis or treatment: 2.0-3.0 CARDIOLOGY Standard range: 2.0-3.0 High-intensity range: 2.5-3.5 Refer to indication-specific guidelines for appropriate target ranges for prosthetic heart valve replacement. Current interpretive data was last revised on 2019. Blood 04/24/2024 5:32 AM CDT 04/24/2024 5:37 AM CDT [facility] DOOR SERVICEMAN LAB BLOOD ORDERABLES Fi nal Result Performing Organization Address [facility] Co de Phone Number ESTRELLA PHILLY [address] [facility] [place] [address] * (ABNORMAL) Ferritin (04/24/2024 5:32 AM CDT) Ferritin 1,053(H) 15 - 150 ng/mL Blood 04/24/2024 5:32 AM CDT 04/24/2024 10:07 AM CDT Zahira Vu MD LAB BLOOD ORDERABLES Final Re sult Performing Organization Address [facility] Co de Phone Number ESTRELLA [address] Department [place] [address] * (ABNORMAL) Comprehensive metabolic panel (04/24/2024 5:32 AM CDT) Sodium 138 135 - 145 mmol/L Potassium, pl 4.2 3.3 - 4.9 mmol/L [facility] Chloride 98 97 - 110 mmol/L [facility] CO2 24 22 - 32 mmol/L [facility] Anion gap 16(H) 2 - 15 mmol/L [facility] BUN 17 6 - 25 mg/dL [facility] Creatinine 1.12(H) 0.60 - 1.10 mg/dL [facility] Glucose 120 70 - 199 mg/dL [facility] Comment: [...] 5:32 AM CDT 04/24/2024 5:37 AM CDT us Brooke Matos NP LAB BLOOD ORDERABLES Fi nal Result [facility] [address] Department [place] [address] * eGFR (04/23/2024 8:08 PM CDT) eGFR [...] 8:08 PM CDT 04/23/2024 8:13 PM CDT us Jeovanny Caro MD LAB BLOOD ORDERABLES Final Result ESTRELLA [address] [place] [address] * (ABNORMAL) Differential, auto (04/23/2024 8:08 PM CDT) Pathologist [facility] Neutrophil abs 10.4(H) 1.5 - 6.5 K/cumm Imm gran abs 0.1 0.0 - 0.1 K/cumm [facility] Lymphocyte abs 1.7 0.8 - 3.3 K/cumm [facility] Monocyte abs 0.5 0.2 - 0.8 K/cumm [facility] Eosinophil abs 0.2 0.0 - 0.5 K/cumm [facility] Basophil abs 0.0 0.0 - 0.1 K/cumm [facility] Neutrophil pct 80.5 % [facility] Comment: Interpretive Data Percent cell count reference ranges are not reported, since discordance with absolute values may lead to misinterpretation of CBC data. Current Interpretive Data was last revised on 2017. Imm gran pct 0.9 % [facility] Comment: Interpretive Data Percent cell count reference ranges are not reported, since discordance with absolute values may lead to misinterpretation of CBC data. Current Interpretive Data was last revised on 2017. Lymphocyte pct 12.9 % [facility] Comment: Interpretive Data Percent cell count reference ranges are not reported, since discordance with absolute values may lead to misinterpretation of CBC data. Current Interpretive Data was last revised on 2017. Monocyte pct 3.9 % [facility] Comment: Interpretive Data Percent cell count reference ranges are not reported, since discordance with absolute values may lead to misinterpretation of CBC data. Current Interpretive Data was last revised on 2017. Eosinophil pct 1.6 % [facility] Comment: Interpretive Data Percent cell [...] Caro MD LAB BLOOD ORDERABLES Final Result [facility] [address] Department [place] [address] * (ABNORMAL) CBC with auto differential (04/23/2024 8:08 PM CDT) WBC 13.0(H) 3.8 - 9.9 K/cumm Hgb 8.9(L) 11.9 - 15.5 g/dL [facility] Hct 29.6(L) 35.6 - 45.5 % ESTRELLA Plt 537(H) 150 - 400 K/cumm [facility] [...] BLOOD ORDERABLES Final Result Performing Organization Address [facility] de Phone Number ESTRELLA [address] [place] [address] * (ABNORMAL) Lipase (04/23/2024 8:08 PM CDT) [facility] Lipase 162(H) 10 - 99 Units/L Blood 04/23/2024 8:08 PM CDT 04/23/2024 8:13 PM CDT Jeovanny Caro MD LAB BLOOD ORDERABLES Final Result Performing Organization Address [facility] de Phone Number [facility] [address] Department of [employer] [place], [place] [id number] * (ABNORMAL) Comprehensive metabolic panel (04/23/2024 8:08 PM CDT) Pathologist [facility] Sodium 135 135 - 145 mmol/L Potassium, pl 3.8 3.3 - 4.9 mmol/L [facility] Chloride 97 97 - 110 mmol/L [facility] [...] Caro MD LAB BLOOD ORDERABLES Final Result [facility] [address] [place] [address] from Last 3 Months Insurance [employer] [facility] CHOICE [employer] [facility] H[facility]/PPO Address: [address] [place], [place] [id number] [employer] [facility] CHOICE PLUS [facility] H[facility]/PPO Address: [address] [address] [place] [address] Advance Directives For more information, please contact: [phone] * Full Code (Latest Code Status on File) Date Activated Date Inactivated Comments 04/23/2024 7:25 PM 04/25/2024 11:00 PM Care Teams Manufacturing Maintenance Manager Relationship Specialty Start Date End Date Sondra Shabazz MD [address] [facility] [address] [place] [address] PCP - General Family Medicine 05/18/24 Unknown, Notinfile 04/25/24 [place] [address] [place] [address] Surgeon General Surgery 04/25/24
--- OUTSIDE RECORDS SUMMARY | 2024-07-16 23:06 | XMS_ITS | Clinical Summary ---
Author Organization [facility] Jaun zamarripa [facility] Address [address] [place] [address] Care Team Providers Care Commercial Lending Relationship Manager Name Role Phone Unavailable Primary Care Provider Unavailabl e Encounters Date Type Department Care Team Description 05/10/2024 External Device Data [facility] ABSTRACTION Provider, Abstract [...] 19+ 3-dose series) 2013 HPV/Cotest (21-29) 2015 INFLUENZA VACCINE (#1) 2023 CERVICAL CANCER SCREENING 01/29/2024 HPV/Cotest (30-65) 01/29/2024 PAP SMEAR 01/29/2024 HPV VACCINES Aged Out No longer eligi ble based on patient's age to complete this topic Insurance MEDICAID [place]
[2024-07-16] MEDS: LACTATED RINGERS 1,000 ML 999 ML IV CONT (23:18)
[2024-07-16] MEDS: HYDROmorphone HCL INJ (*CRX) 2 MG/ML VIAL 1 MG IV PUSH (23:18)
[2024-07-16] MEDS: ONDANSETRON INJ 4 MG/2 ML VIAL IV PUSH (23:18)
[2024-07-16 23:19] LABS: Basophils Percent Auto 0.2 % (0.2-1.2); Eosinophils Absolute Auto 0.1 K/mm3 (0-0.3); Eosinophils Percent Auto 0.6 % (0-4.4); Hematocrit 43.6 % (37.0-47.0); Hemoglobin 14.1 g/dL (12.0-15.0); Immature Granulocyte Absolute 0.07 K/mm3 (0.00-0.031); Immature Granulocyte Percent A 0.6 % (0-0.5); Lymphocytes Absolute Auto 1.95 K/mm3 (0.9-3.2); Lymphocytes Percent Auto 15.3 % (18.3-44.2); Mean Corpuscular HGB Conc 32.3 g/dl (32-36); Mean Corpuscular Hemoglobin 25.9 pg (26-34); Mean Corpuscular Volume 80.1 fl (80-100); Mean Platelet Volume 10.5 fl (7.4-10.4); Monocytes Absolute Auto 0.5 K/mm3 (0.1-0.6); Neutrophils Absolute Auto 10.1 K/mm3 (1.3-6.7); Neutrophils Percent Auto 79.3 % (45.5-73.1); Platelet Count Result 244 k/mm3 (150-375); Red Blood Count 5.44 M/mm3 (4.2-5.4); Red Cell Distribution Width 15.7 % (11.5-14.5); White Blood Count 12.7 K/mm3 (4.5-10.0)
[2024-07-16 23:29] LABS: Alanine Aminotransferase 704 U/L (6-35); Alkaline Phosphatase 179 U/L (38-126); Anion Gap 12 mmol/L (4-12); Aspartate Amino Transferase 399 U/L (14-36); Blood Urea Nitrogen 12 mg/dL (7-17); Calcium 10.1 mg/dL (8.4-10.2); Carbon Dioxide 21 mmol/L (22-30); Chloride 105 mmol/L (98-107); Estimated CRCL calculation 105 ml/min; Estimated Glomerular Filt Rate > 60; Glucose 224 mg/dL (65-110); Potassium 3.5 mmol/L (3.4-5.0); Sodium 138 mmol/L (137-145); Total Protein 8.6 g/dL (6.3-8.2)
--- NOTE | 2024-07-16 23:53 | ED_ITS ---
HPI - Abdominal Pain General Chief Complaint: Abdominal Pain Stated Complaint: abd pain Time Seen by Provider: 07/16/24 22:47 History of Present Illness HPI narrative: 29-year-old female with a past medical history including gallstone pancreatitis, recent hospital visit 3 months ago for pancreatitis requiring hospitalization. Patient reportedly had abnormal blood coagulation studies that precluded her from getting surgery at that time until cleared by Hematology. Patient did have a hematology follow-up visit and was cleared to proceed with surgery but did not arrange this on outpatient basis. During her hospital admission several months ago she was transferred to [facility] for a 2nd opinion based on specialty consultation recommendations. At the facility she was discharged after 2 days without any interventions and General surgery regular follow-up. She has not made that follow-up appointment or sought re-evaluations as she was worried about losing her job from the time off so she went back to work instead. Today she presents to the emergency room with upper abdominal pain nausea, vomiting, diaphoresis and states that feels very similar to last time she had gallstone pancreatitis. She is diaphoretic in the room and uncomfortable. Denies any chest pain, shortness a breath, fever, chills, urinary issues. No trauma or injury. Related Data Home Medications ?Medication ?Instructions ?Recorded ?Confirmed ?Last Taken ?Type tramadol 50 mg tablet 50 mg PO 05/03/24 05/03/24 Unknown History Allergies Allergy/AdvReac Type Severity Reaction Status Date / Time levofloxacin Allergy Severe Hives Verified 07/16/24 22:49 alprazolam (From Xanax) Allergy Hives Verified 07/16/24 22:49 Review of Systems 2 Review of Systems: [facility] Past Medical History Medical History Leukocytosis Nausea Upper abdominal pain Gallstone pancreatitis Overweight (BMI 25.0-29.9) Anxiety and depression Suppression of menses Encounter for removal of intrauterine contraceptive device Anxiety Surgical History Surgical History H/O gynecological procedure mirena iud insertion - 09/19/2020 Mirena IUD removal 04/07/23 Family History Family History Mother History of blood clots Other Acute myocardial infarction Hypertension Renal failure Social History Social History Smoking status: Never smoker Second hand tobacco smoke exposure: No Alcohol intake: never Substance use: current Substance use type: marijuana Other substance usage details: daily Do You Feel Safe in your Home?: Yes Lack of Transportation: No Lack of Food: Never True Current Housing: I Have Housing Concerned About Future Housing: No Difficulty Paying Gas/Electric Bills: No Difficulty Paying for Meds: No Currently Unemployed: No Education: High School Diploma/GED Difficulty w/ Childcare or Family Care: No Living arrangements: with family Occupation/Education: occupation Additional occupation/education comments: [employer] Gender identity (if verbalized by the patient): Female Sexual Orientation (if Verbalized by the Patient): Straight or Heterosexual Spiritual care concerns: No Exam 2 Narrative: GENERAL: Uncomfortable, diaphoretic, unable to lie still. HEAD: [Normocephalic, atraumatic.] EYES: [PERRLA and EOMI.] ENT: Nares clear, no rhinorrhea or epistaxis. Mucous membranes moist. NECK: Supple. CHEST: [Clear to auscultation. No respiratory distress.] HEART: [Regular rate and rhythm]. No murmur heard. [Normal peripheral pulses.] ABDOMEN: [Soft, nondistended], tender to palpation in the epigastrium, [No rigidity or guarding] EXTREMITIES: Normal range of motion. [No edema.] SKIN: Warm, dry, no rash. NEURO: [No focal deficits]. Alert and oriented [x3.] PSYCH: [Normal mood and affect.] Course Vital Signs Vital signs: Vital Signs Temperature 36.3 C L 07/16/24 22:44 Pulse Rate 98 07/16/24 22:44 Respiratory Rate 20 07/16/24 22:44 Blood Pressure 128/89 07/16/24 22:44 Pulse Oximetry 99 07/16/24 22:44 Oxygen Delivery Room Air 07/16/24 22:44 Temperature 36.4 C 07/17/24 01:45 Pulse Rate 78 07/17/24 01:45 Respiratory Rate 16 07/17/24 01:45 Blood Pressure 115/81 07/17/24 01:45 Pulse Oximetry 98 07/17/24 03:22 Oxygen Delivery Room Air 07/16/24 22:44 MDM - Abdominal Pain MDM Narrative Medical decision making narrative: 29-year-old female with a past medical history including gallstone pancreatitis who presents to the emergency department with recurrence of epigastric abdominal pain and nausea vomiting for several days. Symptoms are severe in patient is uncomfortable 10/10 pain, diaphoretic and nauseous in the room. She has a tender abdomen. No rigidity or guarding. She was hospitalized recently 3 months ago for similar and found to have gallstone pancreatitis with MRCP done without any obstructing stones otherwise in the upper biliary tract. Ultimately she was transferred to [facility] during that visit for a 2nd opinion and she was discharged without any interventions from the hospital after surgery was evaluating her. She has followed up outpatient with Hematology who has cleared her for procedures and surgeries but she did not establish outpatient follow-up yet. She is uncomfortable, diaphoretic, writhing in pain. Her vital signs are normal however which is reassuring. She was given Dilaudid and Zofran as well as fluids. Suspicion presently is for acute pancreatitis, gallstone, cholecystitis, cholelithiasis, choledocholithiasis, less likely perforated viscus. CT of the abdomen was ordered with contrast as well as blood work including CBC, CMP, lipase. She was given fluids as well. Re-evaluated frequently. Patient's lipase came back greater than 40,000, LFTs in the several 100 range, bilirubin of 4.0. Mildly elevated leukocytosis. Patient required multiple rounds of Dilaudid and fluids and started on high-dose maintenance fluids for pancreatitis. CT scan shows acute edematous interstitial pancreatitis. Patient is hemodynamically stable but has a high [place] score based on her laboratory assessment and severe pancreatitis. She was previously admitted to the [facility] for pancreatitis and her iron pellet tester at [facility] Dr. Molina was spoken to regarding her coagulopathy. 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 She can proceed with any surgical procedures as warranted. Spoke to my hospitalist to declined admission here given patient's establishment and surgeon over at the [facility] system. [facility] hospitalist was spoken to and accepted to [facility] at this time. Transportation was arranged via [facility] ambulance. Patient comfortable with the plan. Accepting physician Dr. Palomo. Medical Records Attestation: I reviewed the patient's medical records. Lab Data Attestation: I reviewed the patient's lab results. 07/16/24 23:10 07/16/24 23:10 Labs: Lab Results 07/16/24 07/16/24 07/16/24 Range/Units 23:08 23:10 23:58 WBC 12.7 H (4.5-10.0) K/mm3 RBC 5.44 H (4.2-5.4) M/mm3 Hgb 14.1 D (12.0-15.0) g/dL Hct 43.6 (37.0-47.0) % MCV 80.1 (80-100) fl MCH 25.9 L (26-34) pg MCHC 32.3 (32-36) g/dl RDW 15.7 H (11.5-14.5) % Plt Count 244 D (150-375) k/mm3 MPV 10.5 H (7.4-10.4) fl Immature Gran % (Auto) 0.6 H (0-0.5) % Neut % (Auto) 79.3 H (45.5-73.1) % Lymph % (Auto) 15.3 L (18.3-44.2) % [place] % (Auto) 4.0 (2.6-8.5) % Eos % (Auto) 0.6 (0-4.4) % Baso % (Auto) 0.2 (0.2-1.2) % Lymph # (Auto) 1.95 (0.9-3.2) K/mm3 [place] # (Auto) 0.5 (0.1-0.6) K/mm3 Eos # (Auto) 0.1 (0-0.3) K/mm3 Baso # (Auto) 0.0 (0.0-0.1) K/mm3 Abs Immat Gran (auto) 0.07 H (0.00-0.031) K/mm3 Absolute Neuts (auto) 10.1 H (1.3-6.7) K/mm3 Absolute Nucleated RBC 0.000 (0.0-0.012) K/mm3 Nucleated RBC % 0.0 (0.0-0.2) % PT 13.6 (11.1-14.7) Seconds INR 1.0 APTT > 200.0 H* (22.3-36.8) Seconds Sodium 138 (137-145) mmol/L Potassium 3.5 (3.4-5.0) mmol/L Chloride 105 (98-107) mmol/L Carbon Dioxide 21 L (22-30) mmol/L Anion Gap 12 (4-12) mmol/L BUN 12 D (7-17) mg/dL Creatinine 0.63 L (0.7-1.0) mg/dL Estim Creat Clear Calc 105 ml/min Estimated GFR > 60 (59 - ) Glucose 224 H (65-110) mg/dL Calcium 10.1 (8.4-10.2) mg/dL Total Bilirubin 4.0 H (0.2-1.3) mg/dL AST 399 H (14-36) U/L ALT 704 H (6-35) U/L Alkaline Phosphatase 179 H (38-126) U/L Lactate Dehydrogenase 377 H (120-246) U/L Total Protein 8.6 H (6.3-8.2) g/dL Albumin 5.0 (3.5-5.1) g/dL Lipase > 56678 H (23-300) U/L Urine Color Dark yellow (Yellow) Urine Appearance Clear (Clear) Urine pH 5.0 (5.0-9.0) Ur Specific [place] 1.021 (1.001-1.035) Urine Protein 1+ H (Negative) mg/dL Urine Glucose (UA) Negative (Negative) mg/dL Urine Ketones 1+ H (Negative) mg/dL Ur Blood (Man) Negative (Negative) Urine Nitrate Negative (Negative) Urine Bilirubin 2+ H (Negative) Urine Urobilinogen 1.0 (<2.0) mg/dL Leukocyte Esterase Rfl 1+ H (Negative) YOLI/UL Urine RBC 0-2 (0-2) /hpf Urine WBC 6-10 H (0-3) /hpf Ur Squamous Epith Cells Moderate (Few) /hpf Urine Bacteria Rare /hpf Urine Casts 3-5 POC Urine HCG, Qual (Negative) 07/16/24 Range/Units 23:59 WBC (4.5-10.0) K/mm3 RBC (4.2-5.4) M/mm3 Hgb (12.0-15.0) g/dL Hct (37.0-47.0) % MCV (80-100) fl MCH (26-34) pg MCHC (32-36) g/dl RDW (11.5-14.5) % Plt Count (150-375) k/mm3 MPV (7.4-10.4) fl Immature Gran % (Auto) (0-0.5) % Neut % (Auto) (45.5-73.1) % Lymph % (Auto) (18.3-44.2) % [place] % (Auto) (2.6-8.5) % Eos % (Auto) (0-4.4) % Baso % (Auto) (0.2-1.2) % Lymph # (Auto) (0.9-3.2) K/mm3 [place] # (Auto) (0.1-0.6) K/mm3 Eos # (Auto) (0-0.3) K/mm3 Baso # (Auto) (0.0-0.1) K/mm3 Abs Immat Gran (auto) (0.00-0.031) K/mm3 Absolute Neuts (auto) (1.3-6.7) K/mm3 Absolute Nucleated RBC (0.0-0.012) K/mm3 Nucleated RBC % (0.0-0.2) % PT (11.1-14.7) Seconds INR APTT (22.3-36.8) Seconds Sodium (137-145) mmol/L Potassium (3.4-5.0) mmol/L Chloride (98-107) mmol/L Carbon Dioxide (22-30) mmol/L Anion Gap (4-12) mmol/L BUN (7-17) mg/dL Creatinine (0.7-1.0) mg/dL Estim Creat Clear Calc ml/min Estimated GFR (59 - ) Glucose (65-110) mg/dL Calcium (8.4-10.2) mg/dL Total Bilirubin (0.2-1.3) mg/dL AST (14-36) U/L ALT (6-35) U/L Alkaline Phosphatase (38-126) U/L Lactate Dehydrogenase (120-246) U/L Total Protein (6.3-8.2) g/dL Albumin (3.5-5.1) g/dL Lipase (23-300) U/L Urine Color (Yellow) Urine Appearance (Clear) Urine pH (5.0-9.0) Ur Specific [place] (1.001-1.035) Urine Protein (Negative) mg/dL Urine Glucose (UA) (Negative) mg/dL Urine Ketones (Negative) mg/dL Ur Blood (Man) (Negative) Urine Nitrate (Negative) Urine Bilirubin (Negative) Urine Urobilinogen (<2.0) mg/dL Leukocyte Esterase Rfl (Negative) YOLI/UL Urine RBC (0-2) /hpf Urine WBC (0-3) /hpf Ur Squamous Epith Cells (Few) /hpf Urine Bacteria /hpf Urine Casts POC Urine HCG, Qual Negative (Negative) Imaging Data Radiologist's impression: ITS Impressions Abdomen/Pelvis CT 07/17/24 06:32 Impression: Acute pancreatitis, as detailed above. Critical Care Time Critical Care Time Critical Care Time: Yes Total Critical Care Time: 75 Discharge Plan Discharge Clinical Impression: Severe acute pancreatitis, Abdominal pain, Coagulopathy Patient Disposition: Acute Care Hospital Condition: Guarded Prognosis Instructions: Antibiotic Form Patient Language: Egyptian Prescriptions: No Action tramadol 50 mg tablet 50 mg PO fluconazole 150 mg tablet 150 mg PO Q72H Qty: 2 0RF Rx Instructions: as a single dose sertraline 50 mg tablet 50 mg PO DAILY Qty: 30 3RF medroxyprogesterone [Depo-Provera] 150 mg/mL syringe 150 mg IM [id number] Qty: 1 0RF Follow-up/Referrals: UNKNOWN,DOCTOR [Primary Care Provider] -
[2024-07-17] VITALS (10 sets, daily range): BP systolic 115–121; BP diastolic 81–84; PULSE 78–100; RESP 16; TEMP 36.3–36.4; O2SAT 98–100
[2024-07-17 00:01] LABS: BEDSIDEPREGUCG Negative (Negative)
--- NOTE | 2024-07-17 00:01 | PC.NURSE ---
Received report from ANABEL Alexander for cont. of care. Pt c/o 08/18 abdominal pain, and n/v. Pt ambulatory to bathroom with steady gait for urine sample.
[2024-07-17 00:17] LABS: Lipase > 40000 U/L (23-300)
[2024-07-17 00:19] LABS: Lactate Dehydrogenase 377 U/L (120-246)
[2024-07-17] MEDS: LACTATED RINGERS 1,000 ML 999 ML IV CONT (00:19)
[2024-07-17 00:21] LABS: Add Urine Microscopic? YES; Appearance Urine Clear (Clear); Bacteria Urine Rare /hpf; Bilirubin Urine 2+ (Negative); Blood Urine Negative (Negative); Color Urine Dark Yellow (Yellow); Glucose Urine UA Negative (Negative); Ketones Urine 1+ mg/dL (Negative); Leukocyte Esterase Ur 1+ LEU/UL (Negative); Nitrate Urine Negative (Negative); Protein Urine 1+ mg/dL (Negative); RBC Urine 0-2 /hpf (0-2); Specific Grav Ur 1.021 (1.001-1.035); Squamous Epithelial Cell Urine Moderate /hpf (Few)
[2024-07-17 00:25] LABS: Prothrombin Time 13.6 Seconds (11.1-14.7)
[2024-07-17 00:42] LABS: Partial Thromboplastin Time > 200.0 Seconds (22.3-36.8)
[2024-07-17] MEDS: HYDROmorphone HCL INJ (*CRX) 2 MG/ML VIAL 1 MG IV PUSH (02:06)
--- NOTE | 2024-07-17 03:28 | PC.NURSE ---
Spoke to transfer center at [facility]. [facility] will call back when bed becomes available.
[2024-07-17] MEDS: LACTATED RINGERS 1,000 ML 200 ML IV CONT (03:37)
[2024-07-17] MEDS: ONDANSETRON INJ 4 MG/2 ML VIAL IV PUSH (04:19)
== END 2024-07-17 04:19 | disposition short-term general hospital (02) ==
LOC: ANHED 23:04
PROVIDERS: Emergency Provider Student in an Organized Health Care Education/Training Program
DX: K85.90 Acute pancreatitis without necrosis or infection, unspecified (principal); D68.9 Coagulation defect, unspecified; E66.3 Overweight; Z68.30 Body mass index [BMI] 30.0-30.9, adult; F41.9 Anxiety disorder, unspecified; F32.A Depression, unspecified; Z79.899 Other long term (current) drug therapy
CPT/HCPCS: 36415; 74177; 80053; 81001; 81025; 83615; 83690; 85025; 85610; 85730; 96361; 96374; 96375; 99285; J1171; J2405; J7120; Q9967